=== PATIENT | female | born 1960 | race Caucasian/White ===

== ENCOUNTER → 2019-08-04 09:07 | Outpatient (BNVA) | payer BC, SELFPAY | PROVIDERS: Visit Provider Internal Medicine Cardiovascular Disease | DX: I48.91 Unspecified atrial fibrillation (principal) | CPT/HCPCS: 85610 ==

== ENCOUNTER → 2019-09-01 10:45 | Outpatient (BNVA) | payer BC, SELFPAY | PROVIDERS: Family Provider Nurse Practitioner Family; PCP Nurse Practitioner Family; Visit Provider Internal Medicine Cardiovascular Disease | DX: I48.91 Unspecified atrial fibrillation (principal) | CPT/HCPCS: 85610 ==

== ENCOUNTER → 2019-09-10 10:21 | Outpatient (BNVA) | payer BC, SELFPAY | PROVIDERS: Family Provider Nurse Practitioner Family; PCP Nurse Practitioner Family; Visit Provider Internal Medicine Cardiovascular Disease | DX: I48.91 Unspecified atrial fibrillation (principal) | CPT/HCPCS: 85610 ==

== ENCOUNTER → 2019-09-16 10:50 | Outpatient (BNVA) | payer BC, SELFPAY | PROVIDERS: Family Provider Nurse Practitioner Family; PCP Nurse Practitioner Family; Visit Provider Internal Medicine Cardiovascular Disease | DX: I48.91 Unspecified atrial fibrillation (principal); Z79.01 Long term (current) use of anticoagulants | CPT/HCPCS: 85610 ==

== ENCOUNTER → 2019-10-14 10:37 | Outpatient (BNVA) | payer BC, SELFPAY | PROVIDERS: Family Provider Nurse Practitioner Family; PCP Nurse Practitioner Family; Visit Provider Internal Medicine Cardiovascular Disease | DX: I48.91 Unspecified atrial fibrillation (principal) | CPT/HCPCS: 85610 ==

== ENCOUNTER → 2019-11-11 10:26 | Outpatient (BNVA) | payer BC, SELFPAY | PROVIDERS: Family Provider Nurse Practitioner Family; PCP Nurse Practitioner Family; Visit Provider Internal Medicine Cardiovascular Disease | DX: I48.91 Unspecified atrial fibrillation (principal) | CPT/HCPCS: 85610 ==

== ENCOUNTER → 2019-12-09 10:47 | Outpatient (BNVA) | payer BC, SELFPAY | PROVIDERS: Family Provider Nurse Practitioner Family; PCP Nurse Practitioner Family; Visit Provider Internal Medicine Cardiovascular Disease | DX: I48.91 Unspecified atrial fibrillation (principal) | CPT/HCPCS: 85610 ==

== ENCOUNTER 2020-01-19 07:01 | Outpatient (CLI) | payer BC, SELFPAY ==
[2020-01-19 07:19] VITALS: BMI 39.4
--- NOTE | 2020-01-19 07:26 | ECG_ITS ---
[facility] Test Date: 2020-01-19 Pat Name: Ivette Wheeler Department: Room: Gender: Female Office Administrator: Jana Walker : 1960 Requested By: Kash Cunningham Order Number: [id number] [place] MD: Kash Cunningham M.D. Interpretive Statements NAME OF STUDY: LEXISCAN SESTAMIBI STRESS TEST INDICATION: Chest Pain, NOTE: Please note that this is the electrocardiogram portion of the Lexiscan/Sestamibi stress test. The perfusion scan will be documented separately. DATA: Baseline heart rate was 70 beats per minute. Baseline blood pressure was 164/100 millimeters of mercury. Target heart rate was 160. Maximum heart rate achieved was 91. which was 56 % of the predicted target heart rate. Maximum blood pressure was 167/108 millimeters of mercury. The reason for ending the test was completion of the protocol. The patient did not experience any symptoms. ELECTROCARDIOGRAM: BASELINE: Sinus rhythm. Normal axis. Anteroseptal T wave inversion could be ischemia or baseline abnormality EXERCISE: After Lexiscan injection, no ST-T changes suggestive of ischemic noted. No arrhythmia noted. CONCLUSION: Please note due to baseline abnormality of the EKG specificity and sensitivity of the EKG portion of LexiScan MIBI stress test will be low 1. EKG not suggestive of ischemia 2. Lexiscan injection unremarkable. Blood pressure response hypertensive. 3. Perfusion scan will be documented separately. Electronically Signed On 01-20-2020 17:19:09 CDT by Kash Cunningham M.D. [email or web address]
--- NOTE | 2020-01-19 07:26 | NMCV_ITS ---
NM mela perf SPECT r/s* [id number] Ivette Wheeler Age: 59 Gender: F : 1960 Exam Date: 01/19/2020 08:30 Ordering Phys: Kash Cunningham MD ([email or web address]) Technologist: LUIS Mckinley Exam Location: [facility] Indications: ATHEROSCLEROTIC HEART DISEASE, SHORTNESS OF BREATH STRESS TEST Please see separate stress test report in [facility] for full findings IMAGE PROTOCOL Rest/Stress 1 Lexiscan Day Radiopharmaceutical Dose (mCi) Administration Site Administered by Rest: Tc-99m 10.8 IV LUIS Messina Sestamijoaquin Stress:Tc-99m 33.0 IV LUIS Messina Sestamibi Rest: 19-Jan-2020 60 Discovery 630 Stress: 19-Jan-2020 30 Discovery 630 0.4mg Lexiscan. Images obtained in supine and prone position. SPECT RESULTS Technical Quality: Excellent Raw Data Analysis: Normal Image Corrections: No attenuation or motion correction applied Summed Stress Score: 3 Summed Rest Score: 0 Summed Difference Score: 3 PERFUSION FINDINGS SPECT images demonstrate homogeneous tracer distribution throughout the myocardium. FUNCTIONAL RESULTS (calculated via Gated SPECT) Stress Image LV EF (%): 63 Stress EDV (mL):91 TID: 0.96 Stress ESV (mL):34 Rest Image LV EF (%): 63 FUNCTIONAL FINDINGS: There is normal left ventricular systolic function. IMPRESSIONS Myocardial perfusion imaging is normal low probability for obstructive coronary artery disease. EKG segment will be documented separately. Kash Cunningham MD (Electronically Signed) Final Date: 19 January 2020 15:46 S
[2020-01-19 09:23] VITALS: BP 145/86; PULSE 80
[2020-01-19] MEDS: regadenoson 0.4 Mg/5 ml Syringe IVP (09:23)
== END 2020-01-19 07:02 | disposition home or self-care (01) ==
LOC: CDL 07:03
PROVIDERS: Family Provider Nurse Practitioner Family; PCP Nurse Practitioner Family; Visit Provider Internal Medicine Cardiovascular Disease
DX: I25.10 Atherosclerotic heart disease of native coronary artery without angina pectoris (principal); I48.11 Longstanding persistent atrial fibrillation; R06.02 Shortness of breath; R07.9 Chest pain, unspecified
CPT/HCPCS: 78452; 93017; A9500; J2785

== ENCOUNTER → 2020-02-08 09:09 | Outpatient (BNVA) | payer BC, SELFPAY | PROVIDERS: Family Provider Nurse Practitioner Family; PCP Nurse Practitioner Family; Visit Provider Internal Medicine Cardiovascular Disease | DX: I48.11 Longstanding persistent atrial fibrillation (principal) | CPT/HCPCS: 85610 ==

== ENCOUNTER 2020-02-24 14:05 | Outpatient (CLI) | payer BC, SELFPAY ==
[2020-02-24 14:27] LABS: Basophils # 0.1 10^3/uL (0.0-0.1); Basophils % 0.7 %; Eosinophils # 0.3 10^3/uL (0.0-0.8); Eosinophils % 3.2 %; Hematocrit 49.7 % (37.0-47.0); Hemoglobin 15.5 g/dL (11.5-15.3); Lymphocytes % 32.1 %; Mean Corpuscular HGB Conc 31.2 g/dL (30.0-36.0); Mean Corpuscular Hemoglobin 27.7 pg (28.0-34.0); Mean Corpuscular Volume 88.8 fL (81-99); Mean Platelet Volume 10.4 fL (7.4-10.4); Monocytes # 0.8 10^3/uL (0.2-0.9); Monocytes % 8.1 %; Neutrophils # 5.25 10^3/uL (1.8-7.7); Neutrophils % 55.6 %; Nucleated Red Blood Cells % 0 %; Platelet Count 332 10^3/cmm (130-400); Red Cell Distribution Width 13.3 % (12.1-15.1); White Blood Count 9.5 10^3/uL (4.0-10.0)
[2020-02-24 14:53] LABS: Anion Gap 13.6 (5-19); Blood Urea Nitrogen 12 mg/dL (8-23); Carbon Dioxide 28 mmol/L (22-29); Chloride 99 mmol/L (98-107); Glomerular Filtration Rate 101.6 mL/min (90-130); Glucose 135 mg/dL (65-115); NT Pro B Type Natriuretic Pept 179 pg/mL (0-125); Osmolality Calculated 280 mOsm/kg (285-295); Potassium 4.6 mmol/L (3.5-5.1); Sodium 136 mmol/L (136-145)
[2020-02-24 15:00] LABS: INR 2.11 (0.8-1.2)
== END 2020-02-24 14:06 | disposition home or self-care (01) ==
LOC: LAB 14:08
PROVIDERS: Family Provider Nurse Practitioner Family; PCP Nurse Practitioner Family; Visit Provider Internal Medicine Cardiovascular Disease
DX: Z01.812 Encounter for preprocedural laboratory examination (principal)
CPT/HCPCS: 36415; 80048; 83880; 85025; 85610; 87635

== ENCOUNTER 2020-02-29 11:20 | Observation (INO) | payer BC, SELFPAY ==
[2020-02-28 11:52] VITALS: BMI 40.6
[2020-02-29] VITALS (41 sets, daily range): BP systolic 123–170; BP diastolic 79–116; PULSE 69–84; RESP 18–34; TEMP 36.5; O2SAT 87–95
--- NOTE | 2020-02-29 07:30 | XACV_ITS ---
Ht: 163 cm Wt: 108 kg BSA: 2.26 m2 Gender: Female : 1960 Any Known Allergies: Other Exam Priority: Routine Procedure(s): Procedure Description: Diagnostic procedure Procedure Description: PCI procedure Procedure Description: Left Heart Catheterization Procedure Description: Drug Eluting Coronary Stent Procedure Description: PTCA Procedure Description: Coronary Angiography Diagnostic Cath Status: Elective Diagnostic Findings LM: Mild 40% stenosis, TROY: 3 flow. mLAD: Severe 100% stenosis, TROY: 0 flow. pCIRC: Moderate 60% stenosis, TROY: 3 flow. Ramus: Severe 100% stenosis, TROY: 3 flow. Proximal Right Coronary Artery: Severe 85% stenosis, TROY: 3 flow. mRCA: Moderate 60% stenosis, TROY: 3 flow. Three grafts visualized. BOYD to dLAD: patent. SVG to dCIRC: 100% stenosis, TROY: 0 flow. SVG to Ramus: 100% stenosis, TROY: 0 flow. Coronary angiography shows right dominance. PCI Status: Elective PCI Indication: New Onset Angina <= 2 months Interventional Findings Proximal Right Coronary Artery: 85% stenosis treated with AB TREK 3.00X12 RX BALLOON, ROMERO Hough MATEO 4.0X12 GARDENIA, and MDT CINDY EUPHORA RX [id number] BALLOON. 0% residual stenosis, TROY: 3 flow. Conclusions There is severe coronary artery disease with five vessel disease. one graft patent, and two grafts diseased. Patient has prior CABG. Proximal Right Coronary Artery was treated with two Balloon and Drug Eluting Stent. Recommendations 1-Return to inpatient for close monitoring and routine cath care 2-Risk factor modification for secondary prevention 3-Statin and aspirin 81 mg life--long, if tolerated 4-Patient was pre-loaded with 600 mg of Plavix, continue Plavix 75mg p.o. daily for at least one year. We will assess at the end of one year again to continue if further or not 5-Continue optimal medical management 6-Follow up with Dr. Cunningham in four weeks and your primary care in 10 days . Pressures Phase:Rest AO : 105 mmHg / 74 mmHg ( 89 mmHg ) @ 5:37:00 AM 138 mmHg / 73 mmHg ( 102 mmHg ) @ 5:48:00 AM 145 mmHg / 57 mmHg ( 97 mmHg ) @ 5:48:00 AM 129 mmHg / 79 mmHg ( 102 mmHg ) @ 5:56:00 AM 55 mmHg / 36 mmHg ( 74 mmHg ) @ 6:02:00 AM 91 mmHg / 67 mmHg ( 79 mmHg ) @ 6:02:00 AM 95 mmHg / 70 mmHg ( 85 mmHg ) @ 6:08:00 AM LV : 151 mmHg / -13 mmHg / @ 5:48:00 AM 141 mmHg / -11 mmHg / @ 5:48:00 AM Valves Phase:DefaultPhase AV : 0.0 mmHg @ 11:21:18 AM AV Mean Gradient: 0.0 mmHg @ 11:21:18 AM Clinical Evaluation EBL: 5mL-10mL Procedural Details Procedure Consent Obtained. Pre-Procedure Time Out. Identified patient by full name and date of as verbalized by the patient/guarantor. Does the consent match the physician's order: Yes. Accurate & Complete Informed Consent: Yes. Inpatient/Outpatient History & Physical on Chart: Yes. If H&P is completed, is and addenduem needed: No; If yes, is the addendum complete: N/A. Visualize and Verify Site with Patient/Guarantor: N/A. Relevant Radiology Images available: N/A. Pre-op teaching completed and patient verbalized understanding. The risks, benefits, and alternatives of sedation and/or procedure were discussed by physician. The patient agrees to continue. Procedure started. [facility] Clinical Fraility Score: 3: Managing Well. Rn Mds Coordinator Indications: New Onset Angina. Chest Pain Symptom Assessment: Typical Angina Symptoms. Cardiovascular Instability: No. Correct patient, site and procedure confirmed by cath team. PERRLA. Strong, equal hand porcelain finisher bilaterally. Lungs clear x 5 lobes. IV Site on Arrival: 18 gauge in the left anticubital. IV Fluids: 0.9% NaCl at KVO. 0 mL infused prior to lab animal technician. Pre Procedural Pulses: bilateral dorsalis pedis was 1+. Pre Procedural Pulses: bilateral posterior tibial was 1+. Pre Procedural Pulses: bilateral radial was 3+. Oxygen started at 2liters/min via nasal canula. bilateral groins was prepped with chloroprep then draped in the usual sterile fashion. Baseline sample Acquired. HR: 76 BPM. Equipment: 6F - Femoral. Cardiac Cath Pack. ACPlayMotion Manifold Kit Model BT 2000. Heparinized Saline (2 units/mL), 1000 mL bag. Kit, Micropuncture. Physician notified. Physician arrived. Physician scrubbed in. Immediate Pre-Procedure Time Out. Correct Patient: Yes; Correct Procedure: Yes; Correct Site: Yes; Correct Patient Position: Yes; Correct Supplies: Yes; Dried Flammable Prep: Yes; Blood Products Available: N/A;. Lidocaine 1% infiltrated to the right groin. Arterial access obtained with micropuncture set. A 5 bahraini JL4 catheter in over wire. Multiple views taken of left coronary artery. Catheter out. A 5 bahraini JR4 catheter in over wire. Multiple views taken of right coronary artery. 2 SVGs occluded. A 5 bahraini IM catheter in over wire. BOYD to LAD visualized. A 5 bahraini Angled Pig catheter in over wire. EDP Sample taken: LV 151/-14,18; HR: 79 BPM; SpO2: 98%. Pullback taken: LV 141/-12,20; AO 138/73(102); Mean: 0mmHg, Peak to Peak: 0mmHg, SEP: 17sec/min; HR: 77 BPM; SpO2: 98%. Inventory is AB BMW Guidewire .014 300cm. 6 bahraini JR 4 guide catheter was inserted over the wire. Inventory is CRD 6FR JR 4 GUIDE 100cm. BMW guidewire was advanced through the guide catheter to lesion in the prox RCA. Inflation number : 1 A AB TREK 3.00X12 RX BALLOON was prepped and advanced across the Prox RCA , then inflated to 10 MAC for 0:20 seconds. Inflation number: 2 The AB TREK 3.00X12 RX BALLOON was reinflated across the Prox RCA, to 12 MAC for 0:13 seconds. Balloon out. Inflation Number : 3 Treasure Hough MATEO 4.0X12 GARDENIA -Lot Number# [id number] exp date 09/05/2021 was prepped and advanced across the Prox RCA. The stent was deployed at 14 MAC for 0:27 seconds. Stent balloon out over wire. Inflation number : 4 A ROMERO WHITE EUPHORA RX [id number] BALLOON was prepped and advanced across the Prox RCA , then inflated to 12 MAC for 0:19 seconds. Wire out. Guide catheter out. Physician scrubbed out. A Suture was successful obtaining hemostatsis at the Right Femoral artery insertion site. Sheath(s) sutured into position with 2-0 silk and sterile 4x4's and Op-site applied over the site. No oozing or signs and symptoms of hematoma noted. Arterial sheath flushed and connected to tranducer and pressure bag with heparinized saline. Post Procedure: Pulses reassessed and unchanged. PERRLA. Strong, equal hand porcelain finisher bilaterally. No VTE prophylaxis required. Medication's Wasted: Lidocaine 1% = 10 mL. Medication's Wasted: Heparin = 1000 units. Contrast type used: Visipaque 320 mgI/mL, 500 mL bottle. PCI Indication: CAD (without ischemic symptoms). Complications: none. Estimated blood loss: 5mL-10mL. Total IV fluids: 100 mL. Procedure completed. Patient transferred by bed to 1st floor. Vital chart was stopped. Site: Right Femoral artery Sheath Size: 6 Fr Hemostasis Method: Suture Hemostasis Success: Successful Procedure Medications Start: 10:10 AM Stop: 10:10 AM Medication: Versed Amount: 1 mg Route: I.V. Start: 10:10 AM Stop: 10:10 AM Medication: Fentanyl Amount: 50 mcg Route: I.V. Start: 10:16 AM Stop: 10:16 AM Medication: Versed Amount: 1 mg Route: I.V. Start: 10:16 AM Stop: 10:16 AM Medication: Fentanyl Amount: 50 mcg Route: I.V. Start: 10:31 AM Stop: 10:31 AM Medication: Versed Amount: 1 mg Route: I.V. Start: 10:55 AM Stop: 10:55 AM Medication: Heparin Amount: 8000 units Route: I.V. Start: 11:00 AM Stop: 11:00 AM Medication: Versed Amount: 1 mg Route: I.V. Start: 11:06 AM Stop: 11:06 AM Medication: Aggrastat 12.5 mg/250 mL Amount: 19.4 ml/hr Route: I.V. drip Start: 11:04 AM Stop: 11:04 AM Medication: Aggrastat 12.5 mg/250 mL Amount: 54 ml Route: I.V. bolus I, the attending physician, have reviewed and verified all procedure medications. Yes, all medications given per verbal order History/Risk Factors Hypertension: Yes Dyslipidemia: Yes Diabetic Therapy: Oral Peripheral Arterial Disease (PAD): No Myocardial Infarction (CO): No Obesity: Yes Renal Disease: No Tobacco Use: Never Prior Interventions PCI: No CABG: Yes Valve Surgery: No Report Signatures Finalized by:Kash Cunningham MD on 03/15/2020 11:00:18 AM
[2020-02-29] MEDS: diphenhydrAMINE 50 mg Capsule PO (08:46)
[2020-02-29 09:19] LABS: INR 0.95 (0.8-1.2)
--- NOTE | 2020-02-29 09:45 | W.PM.OPSUD ---
Surgery/Procedure H&P Update DATE OF PROCEDURE: February 29, 2020 DATE H&P PERFORMED: 01/27/20 H&P UPDATE INFORMATION: I have reviewed H&P completed within last 30 days and I have examined patient prior to procedure PREOP DIAGNOSIS: Worsening of angina, shortness of breath despite of optimization of medicine in a patient who has history of CABG 15 years ago PLANNED PROCEDURE: Operation Date: 02/29/20 08:30 Proposed Procedures p left cardiac catheterization(Left) - Kash Cunningham MD PATIENT REASSESSED PRIOR TO SEDATION, WITH NO CHANGE NOTED: Yes PHYSICAL EXAM: alert, oriented x 3, clear to auscultation bilaterally and regular rate & rhythm AIRWAY EVAL/ANESTHESIA PLAN: ASA II, Risks, benefits & alternatives of sedation and/or procedure discussed and Patient agrees to continue as planned
[2020-02-29 11:58] LABS: Glucose Point of Care 131 mg/dL (70-110)
[2020-02-29] MEDS: aspirin 81 mg EC Tablet PO (12:05)
[2020-02-29] MEDS: warfarin 3 mg Tablet 9 MG PO (13:15)
--- NOTE | 2020-02-29 13:20 | PC.NURSE ---
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 Aggrastat stopped at 1315 per orders.
--- NOTE | 2020-02-29 14:40 | PC.NURSE ---
patient resting well in bed maintaining bed rest while sheath is in, no hematoma formation or bleeding noted to sheath site awaiting PTT results to pull sheath.
[2020-02-29 14:47] LABS: Partial Thromboplastin Time 43.8 SECONDS (23.9-36.7)
--- NOTE | 2020-02-29 16:30 | PC.NURSE ---
Pulled sheath at 1530 per protocol with Di Holloway RN, patient tolerated well. V/S are all withing normal limits. Dressing in place, no signs of hematoma or bleeding.
--- NOTE | 2020-02-29 16:46 | PC.NURSE ---
Called [employer] per patients request and on facesheet to update on patients status. Appreciative of phone call.
[2020-02-29 16:56] LABS: Glucose Point of Care 128 mg/dL (70-110)
[2020-02-29] MEDS: sotalol 80 mg Tablet 120 MG PO (17:21)
[2020-02-29 20:28] LABS: Glucose Point of Care 158 mg/dL (70-110)
[2020-03-01 00:10] VITALS: BP 123/73; PULSE 67; RESP 20; TEMP 36.9; O2SAT 91
[2020-03-01 04:37] VITALS: BP 156/84; PULSE 74; RESP 20; TEMP 36.6; O2SAT 92
[2020-03-01 06:31] LABS: Glucose Point of Care 153 mg/dL (70-110)
[2020-03-01 08:00] VITALS: BP 117/73; PULSE 88; RESP 15; TEMP 37.2; O2SAT 90
[2020-03-01] MEDS: fenofibrate 145 mg Tablet PO (09:09)
[2020-03-01] MEDS: sotalol 80 mg Tablet 120 MG PO (09:09)
[2020-03-01] MEDS: doxycycline 100 mg Tablet PO (09:09)
[2020-03-01] MEDS: levothyroxine 112 mcg Tablet PO (09:09)
[2020-03-01] MEDS: aspirin 81 mg EC Tablet PO (09:09)
[2020-03-01] MEDS: clopidogrel 75 mg Tablet PO (09:49)
--- NOTE | 2020-03-01 10:44 | PC.CHAP ---
Pastoral Care Encounter/Spiritual Assessment Type of Contact [] Declined extrusion technician visit [] Patient/Family/Request visit [] Outpatient visit [] Follow-up visit [] Physician referral [] Code/Alert [x] Routine visit [] Staff referral [] Actively dying [] Patient sleeping [] Family support [] [] Out of room [] Palliative care [] [] Receiving care in room [] Pre-surgical visit [] Trauma [] Long length of stay [] ICU visit [] Other: Relational/Emotional Strength [] Patient feels connected with others/family/visitors/staff [] Distress [] Loneliness/isolation [] Abandonment Spirituality of Patient [] Person of Flaca [] Attends Church of their Flaca [] Believes in Prayer [] Reads Bible or Zoroastrian materials [] There are Spiritual issues to be addressed Atmospheric Chemist Interventions [x] Prayer [x] Active listening [x] Non-anxious presence [x] Spiritual/emotional support [] Crisis/trauma care [] Spiritual counseling [] Bereavement support [] Provided bereavement packet [] Provided Bible/devotional materials [] Provided toy/stuffed animal, coloring book to patient or family member [] Provided Communion [] Anointing/[place] [] Salvation [x] Completed spiritual assessment [] Other: Impact on Illness or Injury [] Angry [] Fearful [] Anxious [] Often cries [] Exhaustion [] Unable to work [] Unable to attend roman catholic [] Unable to walk/stand [] Unable to read [] Unable to drive [] Unable to eat/drink [] Unable to sleep [] Unable to be with family [] Patient intubated [] Other: Summary Patient feeling much better. Time spent with patient 10 min
[2020-03-01 10:48] VITALS: PULSE 82; O2SAT 92
[2020-03-01 10:53] LABS: Glucose Point of Care 131 mg/dL (70-110)
--- NOTE | 2020-03-01 10:57 | PC.NURSE ---
Discharge instructions given per the physician's instructions. Patient verbalized understanding of medication changes and post angiogram home care instructions. Patient did not have further questions. IV has been removed. Patient dressed self. No further needs identified at this time.
[2020-03-01 11:34] VITALS: BP 117/73; PULSE 82; RESP 15; TEMP 37.2; O2SAT 92
--- NOTE | 2020-03-01 20:56 | P.DS_ITS ---
Discharge Providers Date of Admission: 02/29/20 11: Date of Discharge: March 01, 2020 Attending Provider at Admission: Kash Singh MD Attending Provider at Discharge: Kash Singh MD Primary Care Provider: SAHARA ALVA Diagnoses at Discharge Discharge Diagnosis (1) ASHD (arteriosclerotic heart disease): Status: Acute (2) Atrial fibrillation: Status: Acute Qualifiers: Atrial fibrillation type: longstanding persistent Qualified Code(s): I48.11 - Longstanding persistent atrial fibrillation (3) Dyslipidemia: Status: Chronic Reason for Visit 2 Reason for Visit: left heart cath Hospital Course Discharge Summary: 60-year-old female past medical history significant for history of coronary artery bypass surgery, hypertension hyperlipidemia obesity CHF per worsening of shortness of breath chest pain despite optimization of medicine underwent left heart cath, she was noted to have mid chronic LAD occlusion along with mild to moderate circumflex lesion and left main luminal irregularity. She had dominant large size and caliber RCA with proximal tight 80% mid 40-50 and distal 60% stenosis. SVG to diagonal, SVG to circumflex was noted to be chronically occluded, BOYD to LAD was patent. Proximal RCA was fixed with drug-eluting stent postdilated with noncompliant balloon. Excellent angiographic result was achieved. Patient was observed overnight without any complication. This morning her groin looks good and she is feeling better. She is being discharged with instruction to take Plavix and warfarin for at least 6 months after that we will decide regarding dropping Plavix and continuing warfarin along with aspirin. We will see her back in the clinic in 7 days. Physical Exam Narrative: EXAM NARRATIVE: GENERAL: Patient is alert, awake and oriented x3. NECK: No jugular vein distension. HEENT: No cyanosis. No icterus. No pallor. HEART: Regular S1 and S2. No murmur, rub or gallop. LUNGS: Clear to auscultate bilaterally. ABDOMEN: Soft, nontender and nondistended. Positive bowel sounds. No guarding, rebound or tenderness. CENTRAL NERVOUS SYSTEM: Grossly nonfocal. EXTREMITIES: Lower extremities without edema bilaterally. 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 Routin e Exams 02/29/20 07:30 Taken Labs from last 24 hours 03/01/20 03/01/20 10:39 06:26 POC Glucose 131 153 Vitals: Last Vital Signs Temp 99.0 F 03/01/20 11:34 Pulse 82 03/01/20 11:34 Resp 15 03/01/20 11:34 BP 117/73 03/01/20 11:34 Pulse Ox 92 03/01/20 11:34 Discharge Plan Discharge Patient Disposition: Home Condition: Stable Prescriptions: New clopidogrel 75 mg tablet 75 mg PO DAILY Qty: 90 RF: 4 Continued sotalol 80 mg tablet 120 mg PO BID RF: 0 aspirin [Aspir-81] 81 mg tablet,delayed release (DR/EC) 81 mg PO DAILY RF: 0 fenofibrate nanocrystallized 145 mg tablet 145 mg PO DAILY RF: 0 omega-3 fatty acids [Fish Oil Concentrate] 1,000 mg capsule 2,000 mg PO DAILY RF: 0 levothyroxine 137 mcg capsule 137 mcg PO DAILY RF: 0 metformin 500 mg tablet 500 mg PO BID RF: 0 warfarin 5 mg tablet 5 mg PO DIRECTED 90 Days Qty: 90 RF: 3 warfarin 4 mg tablet 4 mg PO DAILY 90 Days Qty: 90 RF: 3 furosemide 40 mg Tablet 40 mg PO BID PRN (Reason: Edema) RF: 0 doxycycline hyclate 100 mg Tablet 100 mg PO DAILY RF: 0 potassium chloride 20 mEq Tablet Extended Release 20 meq PO DAILY PRN (Reason: Edema) RF: 0 Discharge Orders: Discharge Order (Routine); Ordered 03/01/20 Ordered By: Kash Singh Referrals: SAHARA ALVA, ONLINE EDUCATION MANAGER [Primary Care Provider] - (You have an follow-up with Sahara YOO on at 10a.m. If you have any questions or need to reschedule. Please call ) Kash Singh MD [Physician] - (You have an follow-up appointment with Dr. Singh on at 1:30p.m. If you have any questions or need to reschedule. Please call ) Mariana Marina FNP [Nurse Practitioner] - (You have an follow-up appointment with Mariana Marina on at 10:00A.M. If you have any questions or need to reschedule. Please call ) Discharge Diet: Diabetic Discharge Activity: Increase activity as tolerated Patient Instructions: Clopidogrel (By mouth), Left Heart Catheterization (DC), Coronary Angioplasty (DC), Post Angiogram Home Care Instructions Activity Restrictions/Additional Instructions: No lifting of more than gallon of milk for the next 3 days. Follow-up with Mariana Marina in 7 days. Follow-up with Dr. singh in three months Discharge Date/Time: 03/01/20 11:30 Discharge Attestations Time Spent in Discharge Care*: less than 30 min Specific Discharge Activities: Specific discharge activities: educating patient Quality Metrics Clinical Quality Measures During this hospital stay, did patient experience: None Coding Level of Care Code Established Pt Acute Radiocommunications Technician for Patg Fwd Patient Type Established History Detailed Exam Detailed Medical Decision Making Moderate Complexity Diagnoses ASHD (arteriosclerotic heart disease) I25.10 Atrial fibrillation I48.11 Atrial fibrillation type: longstanding persistent Dyslipidemia E78.5
--- NOTE | 2020-03-15 16:54 | W.PM.OPSFHP ---
Same Day Surgery H&P Indication for Procedure/HPI DATE OF PROCEDURE: February 29, 2020 CHIEF COMPLAINT/INDICATIONFOR SURGICAL PROCEDURE: Chest pain/shortness of breath PREOP DIAGNOSIS: Worsening of angina, shortness of breath despite of optimization of medicine in a patient who has history of CABG 15 years ago PLANNED PROCEDRUE: Operation Date: 02/29/20 08:30 Proposed Procedures p left cardiac catheterization(Left) - Kash Cunningham MD Medications/Allergies* Home Medications Medication Instructions Recorded Confirmed Type aspirin 81 mg tablet,delayed 81 mg PO DAILY 12/30/19 03/09/20 History release fenofibrate nanocrystallized 145 145 mg PO DAILY 12/30/19 03/09/20 History mg tablet levothyroxine 137 mcg capsule 137 mcg PO DAILY 12/30/19 03/09/20 History metformin 500 mg tablet 500 mg PO BID 12/30/19 03/09/20 History omega-3 fatty acids 1,000 mg 2,000 mg PO DAILY cap 12/30/19 03/09/20 History capsule sotalol 80 mg tablet 120 mg PO BID tab 12/30/19 03/09/20 History doxycycline hyclate 100 mg PO DAILY 02/28/20 03/09/20 History furosemide 40 mg PO BID PRN 02/28/20 03/09/20 History potassium chloride 20 meq PO DAILY PRN 02/28/20 03/09/20 History Allergies/Adverse Reactions Allergy/AdvReac Type Severity Reaction Status Date / Time atorvastatin [From Lipitor] Allergy Unknown Verified 03/09/20 10:45 lisinopril Allergy Unknown Verified 03/09/20 10:45 Pertinent History/Comorbid Conditions* Medical History (Updated 01/27/20 @ 09:33 by NAILA Cheng) ASHD (arteriosclerotic heart disease) Atrial fibrillation Dyslipidemia Hx of deep venous thrombosis Tricuspid incompetence Family History (Updated 12/30/19 @ 13:30 by Samantha Torres RN) Diabetes CAD (coronary artery disease) Hypertension Social History Smoking and tobacco status: never smoked Alcohol intake: current Alcohol intake frequency: holidays/special occasions only Pertinent Exam Findings alert, oriented x 3 and clear to auscultation bilaterally Recommendations Surgery/Procedure today Coding Level of Care Code Acute Hearing Aid Technician for Chg Hugo
== END 2020-03-01 11:30 | disposition home or self-care (01) ==
LOC: CSU 03-01 06:34
PROVIDERS: Admitting Provider Internal Medicine Cardiovascular Disease; PCP Nurse Practitioner Family; Visit Provider Internal Medicine Cardiovascular Disease
DX: I25.119 Atherosclerotic heart disease of native coronary artery with unspecified angina pectoris (principal); R06.02 Shortness of breath; I50.9 Heart failure, unspecified; E78.5 Hyperlipidemia, unspecified; E66.9 Obesity, unspecified; Z79.82 Long term (current) use of aspirin; I48.11 Longstanding persistent atrial fibrillation; Z68.41 Body mass index [BMI] 40.0-44.9, adult; Z95.1 Presence of aortocoronary bypass graft
CPT/HCPCS: 12345; 36415; 36416; 82962; 85610; 85730; 93459; 96372; C1725; C1769; C1874; C1887; C1894; C9600; G0378; J1644; J1815; J2250; J3010; J3246; Q0163; Q9967

== ENCOUNTER → 2020-03-09 10:24 | Outpatient (BNVA) | payer BC, SELFPAY | PROVIDERS: PCP Nurse Practitioner Family; Visit Provider Nurse Practitioner Family | DX: I48.11 Longstanding persistent atrial fibrillation (principal); I25.10 Atherosclerotic heart disease of native coronary artery without angina pectoris; Z79.01 Long term (current) use of anticoagulants | CPT/HCPCS: 80048; 85610 ==

== ENCOUNTER → 2020-04-11 08:33 | Outpatient (BNVA) | payer BC, SELFPAY | PROVIDERS: PCP Nurse Practitioner Family; Visit Provider Internal Medicine Cardiovascular Disease | DX: I48.11 Longstanding persistent atrial fibrillation (principal) | CPT/HCPCS: 85610 ==

== ENCOUNTER → 2020-05-09 08:41 | Outpatient (BNVA) | payer BC, SELFPAY | PROVIDERS: PCP Nurse Practitioner Family; Visit Provider Internal Medicine Cardiovascular Disease | DX: I48.11 Longstanding persistent atrial fibrillation (principal) | CPT/HCPCS: 85610 ==

== ENCOUNTER → 2020-07-06 08:40 | Outpatient (BNVA) | payer BC, SELFPAY | PROVIDERS: PCP Nurse Practitioner Family; Visit Provider Internal Medicine Cardiovascular Disease | DX: I48.11 Longstanding persistent atrial fibrillation (principal) | CPT/HCPCS: 85610 ==

== ENCOUNTER → 2020-08-03 11:50 | Outpatient (BNVA) | payer OTHER, SELFPAY | PROVIDERS: PCP Nurse Practitioner Family; Visit Provider Internal Medicine Cardiovascular Disease | DX: I48.11 Longstanding persistent atrial fibrillation (principal) | CPT/HCPCS: 85610 ==

== ENCOUNTER → 2020-09-12 08:47 | Outpatient (BNVA) | payer OTHER, SELFPAY | PROVIDERS: PCP Nurse Practitioner Family; Visit Provider Internal Medicine Cardiovascular Disease | DX: I48.11 Longstanding persistent atrial fibrillation (principal); Z79.01 Long term (current) use of anticoagulants | CPT/HCPCS: 85610 ==

== ENCOUNTER → 2020-10-11 09:11 | Outpatient (BNVA) | payer OTHER, SELFPAY | PROVIDERS: PCP Nurse Practitioner Family; Visit Provider Internal Medicine Cardiovascular Disease | DX: I48.11 Longstanding persistent atrial fibrillation (principal); Z79.01 Long term (current) use of anticoagulants | CPT/HCPCS: 85610 ==

== ENCOUNTER → 2020-11-14 08:32 | Outpatient (BNVA) | payer OTHER, SELFPAY | PROVIDERS: PCP Nurse Practitioner Family; Visit Provider Internal Medicine Cardiovascular Disease | DX: I48.11 Longstanding persistent atrial fibrillation (principal) | CPT/HCPCS: 85610 ==

== ENCOUNTER → 2020-12-12 08:42 | Outpatient (BNVA) | payer OTHER, SELFPAY | PROVIDERS: PCP Nurse Practitioner Family; Visit Provider Internal Medicine Cardiovascular Disease | DX: I48.11 Longstanding persistent atrial fibrillation (principal) | CPT/HCPCS: 85610 ==

== ENCOUNTER 2021-01-05 07:00 | Outpatient (CLI) | payer OTHER, SELFPAY ==
--- NOTE | 2021-01-05 07:42 | US_ITS ---
WS: [id number] ULTRASOUND ABDOMEN LIMITED CLINICAL INFORMATION: RUQ ABDOMINAL PAIN/ACUTE CHRONIC DIARRHEA COMPARISON: None. FINDINGS: Liver Size: Enlarged Craniocaudal length: 22.4 cm. Echogenicity: Coarse Surface nodularity: None. Mass (size and location): None. Bile ducts Intrahepatic ducts: Normal. Common bile duct diameter: 0.6 cm. Gallbladder Normal. Gallstones: None. Gallbladder sludge: None. Gallbladder wall thickening: None. Pericholecystic fluid: None. Sonographic Valdes sign: Absent. Pancreas Normal as visualized. Right kidney: Normal. Hydronephrosis: None. Size: 11.7 cm x 6.5 cm x 5.5 cm. Abdominal aorta and IVC Visualized portions are normal. Ascites: None. US/US abdomen limited [id number] IMPRESSION: 1. Hepatomegaly with diffuse fatty infiltration. 2. Normal gallbladder. 3. No hydronephrosis in right kidney.
== END 2021-01-05 07:01 | disposition home or self-care (01) ==
PROVIDERS: PCP Nurse Practitioner Family; Visit Provider Nurse Practitioner Family
DX: R10.11 Right upper quadrant pain (principal); R19.7 Diarrhea, unspecified; R16.0 Hepatomegaly, not elsewhere classified; K76.0 Fatty (change of) liver, not elsewhere classified
CPT/HCPCS: 76705

== ENCOUNTER → 2021-01-09 08:35 | Outpatient (BNVA) | payer OTHER, SELFPAY | PROVIDERS: PCP Nurse Practitioner Family; Visit Provider Internal Medicine Cardiovascular Disease | DX: I48.11 Longstanding persistent atrial fibrillation (principal) | CPT/HCPCS: 85610 ==

== ENCOUNTER 2021-01-22 10:48 | Inpatient (IN) | payer OTHER, SELFPAY ==
[2021-01-22] VITALS (14 sets, daily range): BP systolic 113–164; BP diastolic 76–131; PULSE 91–138; RESP 21–28; TEMP 36.6–36.9; O2SAT 79–94; BMI 38.0
--- NOTE | 2021-01-22 11:05 | XRR_ITS ---
PROCEDURE INFORMATION: Exam: XR Chest Exam date and time: 01/22/2021 11:05 AM Age: 60 years old Clinical indication: Prior surgery; Surgery date: 6+ months; Surgery type: Open heart; Patient HX: C/O cough for several days/ trouble breathing TECHNIQUE: Imaging protocol: XR of the chest. Views: 1 view. COMPARISON: CR Chest 2 views* [id number] 12/09/2018 10:13 AM FINDINGS: Lungs: Interstitial prominence and asymmetric airspace disease, right greater than left, consistent with bronchopneumonia in the appropriate clinical setting. Pleural spaces: Chronic blunting of the left costophrenic angle. Heart/Mediastinum: No cardiomegaly. Bones/joints: Median sternotomy. Osteopenia and degenerative change. XR/XR chest 1V portable [id number] IMPRESSION: Interstitial prominence and asymmetric airspace disease, right greater than left, consistent with bronchopneumonia in the appropriate clinical setting.
--- NOTE | 2021-01-22 11:06 | ED_ITS ---
HPI - General Adult General: Chief complaint: Shortness of Breath/Dyspnea Stated complaint: Chest Pain, Trouble Breathing Time Seen by Provider: 01/22/21 11:03 History of Present Illness: HPI narrative: This patient is a 60-year-old female who presents to the emergency department complaint of shortness of breath palpitations. Upon arrival EKG performed at the bedside showed atrial fibrillation with RVR with heart rate 140. Patient states she has not felt good for the past couple days. Patient also states she has had some hemoptysis with coughing. Patient does take Coumadin. Patient denies having any other type of Covid symptoms denies fever. Patient does have history of CHF and does take Lasix. Will do medical evaluation treat as needed Onset (ago): day(s) Associated symptoms: Reports dyspnea and palpitations; Deny chest pain, headache(s), nausea, rash or vomiting Review of Systems General: Reports: 10 or more systems reviewed and unremarkable except in HPI and below Const: Denies: fever(s), chills, body aches or fatigue Eyes: Denies: change in vision or blurry vision ENMT: Denies: throat pain, hoarseness or mouth pain Card: Reports: palpitations and irregular heart rhythm; Denies: chest pain, edema, swelling of feet/ankles or lightheadedness Resp: Reports: dyspnea; Denies: productive cough, non-productive cough, wheezing or pain on inspiration GI: Denies: abdominal pain, nausea or vomiting : Denies: flank pain, difficulty voiding, dysuria, urinary frequency, urinary urgency or urinary hesitancy Musc: Denies: neck pain, back pain, extremity pain, extremity swelling, joint pain, joint swelling, joint redness, joint warmth or limited range of motion Skin/Breast: Denies: rash, pruritus, erythema or skin tenderness Neuro: Denies: headache(s), numbness in extremities or weakness in extremities Psych: Denies: anxiety or depression PFSH ED PFSH: Medical History ASHD (arteriosclerotic heart disease) Atrial fibrillation CHF (congestive heart failure) Dyslipidemia Essential hypertension Hx of deep venous thrombosis Tricuspid incompetence Type 2 diabetes mellitus Surgical History History of coronary artery bypass graft 2004 History of coronary artery stent placement History of total vaginal hysterectomy History of tubal ligation Status post colonoscopy Family History Other CAD (coronary artery disease) Diabetes Hypertension Social History Smoking and tobacco status: never smoked Alcohol intake: current Alcohol intake frequency: holidays/special occasions only History of recent travel: No Physical Exam Const: COMMON NORMALS: no acute distress, average body habitus, patient oriented x3, no limitations, healthy appearing, alert and well nourished HENMT: COMMON NORMALS: normocephalic, atraumatic, hearing grossly normal bilaterally, external ears normal, EAC's normal, TM's normal bilaterally, Normal external nose present, Normal nasal mucous membranes and turbinates present, moist oral mucous membranes, oropharynx normal, dentition normal and gingiva normal HEAD & SCALP: normocephalic and atraumatic NOSE: Normal external nose present and Normal nasal mucous membranes and turbinates present EXTERNAL EAR: Yes external ears normal EXTERNAL AUDITORY CANAL: EAC's normal TYMPANIC MEMBRANE: TM's normal bilaterally Neck/C-Spine: COMMON NORMALS: full ROM, no lymphadenopathy, supple, no meningeal signs, no JVD, Thyroid normal and No carotid bruits THYROID: Thyroid normal Chest: COMMONS NORMALS: normal inspection of the chest, normal palpation of entire chest wall, normal inspection of the breasts and normal palpation of the breasts Breast/axilla inspection: Yes normal inspection of the breasts BREAST/AXILLA PALPATION: Yes normal palpation of the breasts Resp: COMMON NORMALS: normal respiratory effort, No retractions, No use of accessory muscles, clear to auscultation bilaterally and percussion normal AUSCULTATION: clear to auscultation bilaterally PERCUSSION: percussion normal Cardio: COMMON NORMALS: no JVD, regular rate, regular rhythm, S1 normal heart sound present, S2 normal heart sound present, No gallops present (Cardio), No cl icks present (Cardio), No murmurs present (Cardio), No rub (Cardio) and Peripheral pulses 2+ throughout RATE: regular rate RHYTHM: regular rhythm HEART SOUNDS: S1 normal heart sound present and S2 normal heart sound present PERIPHERAL PULSES: Peripheral pulses 2+ throughout GI: COMMON NORMALS: Normal to inspection, nondistended, normoactive bowel sounds present, Soft to palpation, non-tender, No hepatosplenomegaly present, no masses and no bruits PALPATION: Yes Soft to palpation and Yes No hepatosplenomegaly present Back/Pelvis: COMMON NORMALS: thoracic and lumbar spine normal to inspection, no thoracic nor lumbar tenderness, thoraco-lumbar ROM normal and straight leg raise negative bilaterally Extremity: COMMON NORMALS: normal to inspection, full ROM, capillary refill normal, no joint enlargement, no clubbing, cyanosis or edema, no calf tenderness and no pedal edema Neuro: COMMON NORMALS: patient oriented x3 SENSORIUM/ORIENTATION: Yes alert MENINGEAL SIGNS: Yes no meningeal signs Course Reevaluation(s): Reevaluation #1: Patient's heart rate is around 120 patient is on a Cardizem drip. Pulse ox is 95% on 4 L by nasal cannula. Patient is Covid positive. Patient be admitted to the hospital for further evaluation with A. fib RVR. And positive coronavirus. We will continue to monitor patient. Patient states initially Time: 12:26 Consultations: Consultation #1: I did discuss at length with hospitalist Dr. Garcia. He has agreed with the patient for admission. He will see patient write additional orders Time: 13:53 Vital Signs: Vital signs: Vital Signs Temperature 98.4 F 01/22/21 11:04 Pulse Rate 138 H 01/22/21 11:04 Respiratory Rate 24 H 01/22/21 11:04 Blood Pressure 164/131 01/22/21 11:04 Pulse Oximetry 79 L 01/22/21 11:04 MDM - General Adult MDM Narrative: Medical decision making narrative: This patient is a 60-year-old female who presents to the emergency department complaint of shortness of breath palpitations. Upon arrival EKG performed at the bedside showed atrial fibrillation with RVR with heart rate 140. Patient states she has not felt good for the past couple days. Patient also states she has had some hemoptysis with coughing. Patient does take Coumadin. Patient denies having any other type of Covid symptoms denies fever. Patient does have history of CHF and does take Lasix. Lab Data: Labs: Lab Results 01/22/21 01/22/21 01/22/21 Range/Units 11:20 11:20 11:20 WBC 5.1 (4.0-10.0) 10^3/ uL RBC 5.15 (4.1-5.3) 10^6/u L Hgb 14.4 (11.5-15.3) g/dL Hct 46.2 (37.0-47.0) % MCV 89.7 (81-99) fL MCH 28.0 (28.0-34.0) pg MCHC 31.2 (30.0-36.0) g/dL RDW 14.0 (12.1-15.1) % Plt Count 202 (130-400) 10^3/c mm MPV 10.4 (7.4-10.4) fL Neut % (Auto) 66.0 % Lymph % (Auto) 22.5 % [place] % (Auto) 10.5 % Eos % (Auto) 0.2 % Baso % (Auto) 0.4 % Neut # (Auto) 3.34 (1.8-7.7) 10^3/u L Lymph # (Auto) 1.1 (0.8-4.8) 10^3/u L [place] # (Auto) 0.5 (0.2-0.9) 10^3/u L Eos # (Auto) 0.0 (0.0-0.8) 10^3/u L Baso # (Auto) 0.0 (0.0-0.1) 10^3/u L Nucleated RBC % (a uto) 0 % Nucleated RBCs # 0.0 /100WBC PT (12.1-14.9) SECO NDS INR (0.8-1.2) APTT (23.9-36.7) SECO NDS Sodium Cancelled Potassium Cancelled Chloride Cancelled Carbon Dioxide Cancelled Anion Gap Cancelled BUN Cancelled Creatinine Cancelled GFR Calculation Cancelled Glucose Cancelled Calculated Osmolal ity Cancelled Calcium Cancelled Total Bilirubin Cancelled AST Cancelled ALT Cancelled Alkaline Phosphata se Cancelled Troponin T Baselin e Cancelled NT-Pro-B Natriuret Pep Cancelled Total Protein Cancelled Albumin Cancelled Globulin Cancelled Urine Color (Yellow) Urine Appearance (CLEAR) Urine pH (5-7) Ur Specific Gravit y (1.005-1.030) Urine Protein (Negative) Urine Glucose (UA) (Normal) Urine Ketones (Negative) Urine Blood (Negative) Urine Nitrate (Negative) Urine Bilirubin (Negative) Urine Urobilinogen (Negative) mg/dL Ur Leukocyte Kaylee ase (Negative) Urine RBC (0-2) /hpf Urine WBC (0-5) /hpf Ur Squamous Epith Cells (0-5) /hpf Amorphous Sediment Urine Bacteria (NONE) /hpf Hyaline Casts /lpf Urine Mucus /hpf SARS-CoV-2 Ag (Rap id) (Negative) 01/22/21 01/22/21 01/22/21 Range/Units 11:38 11:38 11:38 WBC (4.0-10.0) 10^3/ uL RBC (4.1-5.3) 10^6/u L Hgb (11.5-15.3) g/dL Hct (37.0-47.0) % MCV (81-99) fL MCH (28.0-34.0) pg MCHC (30.0-36.0) g/dL RDW (12.1-15.1) % Plt Count (130-400) 10^3/c mm MPV (7.4-10.4) fL Neut % (Auto) % Lymph % (Auto) % [place] % (Auto) % Eos % (Auto) % Baso % (Auto) % Neut # (Auto) (1.8-7.7) 10^3/u L Lymph # (Auto) (0.8-4.8) 10^3/u L [place] # (Auto) (0.2-0.9) 10^3/u L Eos # (Auto) (0.0-0.8) 10^3/u L Baso # (Auto) (0.0-0.1) 10^3/u L Nucleated RBC % (a uto) % Nucleated RBCs # /100WBC PT 38.70 H (12.1-14.9) SECO NDS INR 3.89 H (0.8-1.2) APTT 101.4 H (23.9-36.7) SECO NDS Sodium 138 Potassium 4.3 Chloride 99 Carbon Dioxide 24 Anion Gap 19.3 H BUN 8 Creatinine 0.5 GFR Calculation 125.4 Glucose 114 Calculated Osmolal ity 285 Calcium 8.4 L Total Bilirubin 0.4 AST 72 H ALT 62 H Alkaline Phosphata se 76 Troponin T Baselin e 14 H NT-Pro-B Natriuret Pep 1172 H Total Protein 7.0 Albumin 3.4 L Globulin 3.6 Urine Color (Yellow) Urine Appearance (CLEAR) Urine pH (5-7) Ur Specific Gravit y (1.005-1.030) Urine Protein (Negative) Urine Glucose (UA) (Normal) Urine Ketones (Negative) Urine Blood (Negative) Urine Nitrate (Negative) Urine Bilirubin (Negative) Urine Urobilinogen (Negative) mg/dL Ur Leukocyte Kaylee ase (Negative) Urine RBC (0-2) /hpf Urine WBC (0-5) /hpf Ur Squamous Epith Cells (0-5) /hpf Amorphous Sediment Urine Bacteria (NONE) /hpf Hyaline Casts /lpf Urine Mucus /hpf SARS-CoV-2 Ag (Rap id) (Negative) 01/22/21 01/22/21 Range/Units 11:40 13:11 WBC (4.0-10.0) 10^3/ uL RBC (4.1-5.3) 10^6/u L Hgb (11.5-15.3) g/dL Hct (37.0-47.0) % MCV (81-99) fL MCH (28.0-34.0) pg MCHC (30.0-36.0) g/dL RDW (12.1-15.1) % Plt Count (130-400) 10^3/c mm MPV (7.4-10.4) fL Neut % (Auto) % Lymph % (Auto) % [place] % (Auto) % Eos % (Auto) % Baso % (Auto) % Neut # (Auto) (1.8-7.7) 10^3/u L Lymph # (Auto) (0.8-4.8) 10^3/u L [place] # (Auto) (0.2-0.9) 10^3/u L Eos # (Auto) (0.0-0.8) 10^3/u L Baso # (Auto) (0.0-0.1) 10^3/u L Nucleated RBC % (a uto) % Nucleated RBCs # /100WBC PT (12.1-14.9) SECO NDS INR (0.8-1.2) APTT (23.9-36.7) SECO NDS Sodium Potassium Chloride Carbon Dioxide Anion Gap BUN Creatinine GFR Calculation Glucose Calculated Osmolal ity Calcium Total Bilirubin AST ALT Alkaline Phosphata se Troponin T Baselin e NT-Pro-B Natriuret Pep Total Protein Albumin Globulin Urine Color Yellow (Yellow) Urine Appearance Hazy A (CLEAR) Urine pH 5 (5-7) Ur Specific Gravit y 1.025 (1.005-1.030) Urine Protein 2+ H (Negative) Urine Glucose (UA) Norm (Normal) Urine Ketones 2+ H (Negative) Urine Blood Neg (Negative) Urine Nitrate Negative (Negative) Urine Bilirubin 1+ H (Negative) Urine Urobilinogen 1 H (Negative) mg/dL Ur Leukocyte Kaylee ase Negative (Negative) Urine RBC 0-4 H (0-2) /hpf Urine WBC 0-4 H (0-5) /hpf Ur Squamous Epith Cells 5-10 H (0-5) /hpf Amorphous Sediment Not Reportable Urine Bacteria Trace (NONE) /hpf Hyaline Casts Rare /lpf Urine Mucus 1+ /hpf SARS-CoV-2 Ag (Rap id) Positive H (Negative) Imaging Data^: CXR: Attestation: I personally reviewed and interpreted this imaging study as follows: Radiologist's impression: IMPRESSION: Interstitial prominence and asymmetric airspace disease, right greater than left, consistent with bronchopneumonia in the appropriate clinical setting. EKG Data^: EKG 1: EKG interpretation date: 01/22/21 EKG interpretation time: 10:59 Prior EKG tracings: not available for review Ischemic changes: non-specific ST-T wave changes Interpretation: Atrial fibrillation with RVR heart rate 138 Computer generated interpretation: Chest X-Ray 01/22/21 11:05 IMPRESSION: Interstitial prominence and asymmetric airspace disease, right greater than left, consistent with bronchopneumonia in the appropriate clinical setting. EKG 2: Attestation: I personally reviewed and interpreted this EKG as follows: EKG interpretation date: 01/22/21 EKG interpretation time: 12:48 Prior EKG tracings: available for review Computer generated interpretation: Chest X-Ray 01/22/21 11:05 IMPRESSION: Interstitial prominence and asymmetric airspace disease, right greater than left, consistent with bronchopneumonia in the appropriate clinical setting. Atrial fibrillation with RVR heart rate 129 Discharge Plan Discharge Patient Disposition: Admitted As Inpatient Clinical Impression: Atrial fibrillation with RVR, COVID-19, CHF (congestive heart failure), Chronic anticoagulation Condition: Stable Prescriptions: No Action fenofibrate nanocrystallized 145 mg tablet 145 mg PO QAM RF: 0 omega-3 fatty acids [Fish Oil Concentrate] 1,000 mg capsule 1,000 mg PO BID RF: 0 sotalol 120 mg tablet 120 mg PO BID Qty: 180 RF: 3 doxycycline hyclate 100 mg Tablet 100 mg PO QAM RF: 0 Euthyrox 150 mcg tablet 150 mcg PO QAM RF: 0 metformin 750 mg tablet extended release 24 hr 750 mg PO BID RF: 0 potassium chloride 10 mEq tablet extended release 10 meq PO QAM RF: 0 clopidogrel 75 mg tablet 75 mg PO QAM RF: 0 warfarin 4 mg tablet 4 mg PO BEDTIME RF: 0 warfarin 5 mg tablet 5 mg PO BEDTIME RF: 0 furosemide 20 mg tablet 20 mg PO QAM RF: 0 clobetasol 0.05 % ointment 1 applic TOPICAL BID PRN (Reason: unknown) RF: 0 Referrals: Yulia Hunter, ELECTRICAL AND INSTRUMENT ENGINEER [Primary Care Provider] - Coding Level of Care Code ED Avionics Safety Inspector for Chg Fwd Exam Comprehensive
[2021-01-22 11:33] LABS: Basophils % 0.4 %; Eosinophils % 0.2 %; Hematocrit 46.2 % (37.0-47.0); Hemoglobin 14.4 g/dL (11.5-15.3); Lymphocytes # 1.1 10^3/uL (0.8-4.8); Lymphocytes % 22.5 %; Mean Corpuscular HGB Conc 31.2 g/dL (30.0-36.0); Mean Corpuscular Volume 89.7 fL (81-99); Mean Platelet Volume 10.4 fL (7.4-10.4); Monocytes # 0.5 10^3/uL (0.2-0.9); Monocytes % 10.5 %; Neutrophils # 3.34 10^3/uL (1.8-7.7); Nucleated Red Blood Cells % 0 %; Platelet Count 202 10^3/cmm (130-400); Red Blood Count 5.15 10^6/uL (4.1-5.3); White Blood Count 5.1 10^3/uL (4.0-10.0)
[2021-01-22 12:04] LABS: INR 3.89 (0.8-1.2)
[2021-01-22 12:10] LABS: Troponin(5th) Baseline 14 ng/L (0-10)
[2021-01-22 12:13] LABS: Partial Thromboplastin Time 101.4 SECONDS (23.9-36.7)
[2021-01-22 12:19] LABS: SARS Covid-2 Antigen Positive (Negative)
[2021-01-22 12:48] LABS: Alanine Aminotransferase 62 U/L (0-33); Albumin Level 3.4 g/dL (3.5-5.2); Alkaline Phosphatase 76 IU/L (35-105); Anion Gap 19.3 (5-19); Aspartate Amino Transferase 72 U/L (0-32); Blood Urea Nitrogen 8 mg/dL (8-23); Calcium 8.4 mg/dL (8.5-10.5); Carbon Dioxide 24 mmol/L (22-29); Chloride 99 mmol/L (98-107); Globulin 3.6 g/dL (1.3-4.6); Glomerular Filtration Rate 125.4 mL/min (90-130); Glucose 114 mg/dL (65-115); NT Pro B Type Natriuretic Pept 1172 pg/mL (0-125); Osmolality Calculated 285 mOsm/kg (285-295); Potassium 4.3 mmol/L (3.5-5.1); Sodium 138 mmol/L (136-145); Total Bilirubin 0.4 mg/dL (0.15-1.2)
--- NOTE | 2021-01-22 13:06 | ECG_ITS ---
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1960 Requested By: Presley Shook Order Number: [id number] Reading MD: AGNES SARABIA Measurements Intervals [place] Rate: 129 P: UT: QRS: 18 QRSD: 87 T: -15 QT: 326 QTc: 478 Interpretive Statements ATRIAL FIBRILLATION WITH RAPID VENTRICULAR RESPONSE NONSPECIFIC ST & T-WAVE ABNORMALITY ABNORMAL RHYTHM ECG WARNING: DATA QUALITY MAY AFFECT INTERPRETATION Compared to ECG 02/01/2017 12:02:00 Sinus rhythm no longer present T-wave abnormality still present Electronically Signed On 01-22-2021 18:52:23 CDT by AGNES SARABIA [id number]
[2021-01-22] MEDS: dexamethasone 10 mg/mL INJ IVP (13:17)
[2021-01-22] MEDS: azithromycin 500 MG in sodium chloride 0.9% 250 ML 250 MG IV (13:33)
[2021-01-22 13:34] LABS: Protein Urine 2+ (Negative); Specific Gravity, Urine 1.025 (1.005-1.030); Urine Appearance Hazy (CLEAR); Urine Color Yellow (Yellow); pH Urine 5 (5-7)
[2021-01-22 13:35] LABS: Add Urine Microscopic? YES; Bilirubin Urine 1+ (Negative); Blood Urine Neg (Negative); Glucose Urine UA Norm (Normal); Ketones Urine 2+ (Negative); Leukocyte Esterase Urine Negative (Negative); Nitrate Urine Negative (Negative); Urobilinogen Urine 1 mg/dL (Negative)
[2021-01-22 13:39] LABS: Bacteria Urine TRACE /hpf; RBC Urine 0-4 /hpf (0-2); WBC Urine 0-4 /hpf (0-5)
[2021-01-22 13:40] LABS: Add Urine Culture? No; Hyaline Casts Urine RARE /lpf; Mucus Urine 1+ /hpf
[2021-01-22 14:15] LABS: Troponin 5 2HR 16.17 ng/L (0-10); Troponin 5 2HR Delta 2.17 ABS# (0-10)
--- NOTE | 2021-01-22 14:44 | CTR_ITS ---
PROCEDURE INFORMATION: Exam: CTA Chest With Contrast Exam date and time: 01/22/2021 2:44 PM Age: 60 years old Clinical indication: Cough and shortness of breath; Prior surgery; Surgery type: Cabg; Additional info: Donnell, hemoptysis TECHNIQUE: Imaging protocol: Computed tomographic angiography of the chest with contrast. 3D rendering (Not supervised by radiologist): MIP and/or 3D reconstructed images were created by the technologist. Total images: 879 Radiation optimization: All CT scans at this facility use at least one of these dose optimization techniques: automated exposure control; mA and/or kV adjustment per patient size (includes targeted exams where dose is matched to clinical indication); or iterative reconstruction. Contrast material: OMNI 350; Contrast volume: 61 ml; Contrast route: INTRAVENOUS (IV); COMPARISON: CR (CHEST, ) 01/22/2021 11:43 AM RADIATION DOSE METRICS: Total DLP (mGy-cm): 554.66 FINDINGS: Pulmonary arteries: No visible evidence of pulmonary embolism/pulmonary arterial thrombus. Aorta: The thoracic aorta is nonaneurysmal. No visible intimal flap or dissection. Mild arteriosclerosis. Lungs: Bilateral patches of predominantly peripheral ground-glass interstitial lung disease and early consolidated subsegmental alveolar airspace disease of suspected active pneumonitis/pneumonia. In today's current environment consideration might be given to Covid-19 pneumonitis. Pleural spaces: No pneumothorax. No pleural effusion. Heart: Cardiac size upper limits of normal. No visible pericardial effusion. Coronary artery disease. Status post sternotomy chest and CABG. Lymph nodes: Marginally prominent mediastinal and hilar lymph nodes believed reactive in nature. Liver: Advanced diffuse fatty infiltration of the liver with hepatomegaly. Bones/joints: No visible active or acute osseous pathology. Soft tissues: Unremarkable. Other findings: Obesity. Motion artifact. CT/CT angio chest PE protcl [id number] IMPRESSION: 1. No visible evidence of pulmonary embolism/pulmonary arterial thrombus. 2. Bilateral patches of predominantly peripheral ground-glass interstitial lung disease and early consolidated subsegmental alveolar airspace disease of suspected active pneumonitis/pneumonia. In today's current environment consideration might be given to Covid-19 pneumonitis. 3. Marginally prominent mediastinal hilar lymph nodes believed most likely reactive in nature. Radiation Dose CTDIVOL = (mGy): DLP = 554.66 (mGy-cm)
--- NOTE | 2021-01-22 14:45 | P.HP_ITS ---
Providers/Chief Complaint Admitting Physician: Hosea Garcia MD Primary Care Provider: Yulia Hunter Chief Complaint: Chest Pain, Trouble Breathing History of Present Illness Ivette Wheeler is a 60 year old female with a past medical history of diastolic CHF, atrial fibrillation on Coumadin, hypertension, CABG x3, CAD status post stenting x1 on Plavix, year ago, [id number] type 2 diabetes mellitus, history of DVT, who presents to [facility] due to cough, chest pain, shortness of breath, hemoptysis, fatigue, malaise. Patient tells me that she saha s been having productive, shortness of breath with exertion for the last few days, she also had hemoptysis, she is also developed worsening swelling of her legs, this morning she started follow-up increased shortness of breath, palpitations, chest pain so she decided to come to emergency room. No known Covid exposure, she has not received the Covid vaccine as of yet. Does take Lasix 20 mg daily. Denies any calf pain or calf swelling. She does report loss of taste, loss of smell, does have a rash on her bilateral lower extremities Review of Systems Const: Reports: fatigue and malaise; Denies: fever(s) or chills Eyes: Denies: change in vision or blurry vision ENMT: Reports: nasal congestion Card: Reports: chest pain, palpitations, edema and swelling of feet/ankles Resp: Reports: dyspnea and non-productive cough; Denies: productive cough or wheezing GI: Denies: abdominal pain, nausea, vomiting, hematemesis, diarrhea, constipation, hematochezia or melena : Denies: flank pain, dysuria or urinary frequency Musc: Denies: neck pain or back pain Skin/Breast: Reports: rash Neuro: Denies: headache(s), dizziness or vertigo Endo: Denies: polyuria or polydipsia Medications/Allergies Home Medications Medication Instructions Recorded Confirmed Last Taken Type fenofibrate nanocrystallized 145 145 mg PO QAM 12/30/19 01/22/21 01/22/21 06:00 History mg tablet doxycycline hyclate 100 mg PO QAM 02/28/20 01/22/21 01/22/21 06:00 History sotalol 120 mg tablet 120 mg PO BID #180 tab 11/14/20 01/22/21 01/22/21 06:00 Rx omega-3 fatty acids 1,000 mg 1,000 mg PO BID cap 01/12/21 01/22/21 01/22/21 06:00 History capsule clobetasol 1 applic TOPICAL BID PRN 01/22/21 01/22/21 Unknown History clopidogrel 75 mg PO QAM 01/22/21 01/22/21 01/22/21 06:00 History furosemide 20 mg PO QAM 01/22/21 01/22/21 01/21/21 History levothyroxine [Euthyrox] 150 mcg PO QAM 01/22/21 01/22/21 01/22/21 06:00 History metformin 750 mg PO BID 01/22/21 01/22/21 01/22/21 06:00 History potassium chloride 10 meq PO QAM 01/22/21 01/22/21 01/21/21 History warfarin 4 mg PO BEDTIME 01/22/21 01/22/21 01/21/21 History warfarin 5 mg PO BEDTIME 01/22/21 01/22/21 01/21/21 History Allergies Allergy/AdvReac Type Severity Reaction Status Date / Time atorvastatin [From Lipitor] Allergy Unknown Verified 01/22/21 13:42 lisinopril Allergy Unknown Verified 01/22/21 13:42 PFSH Acute PFSH: Medical History ASHD (arteriosclerotic heart disease) Atrial fibrillation CHF (congestive heart failure) Dyslipidemia Essential hypertension Hx of deep venous thrombosis Tricuspid incompetence Type 2 diabetes mellitus Surgical History History of coronary artery bypass graft 2004 History of coronary artery stent placement History of total vaginal hysterectomy History of tubal ligation Status post colonoscopy Family History Other CAD (coronary artery disease) Diabetes Hypertension Social History Smoking and tobacco status: never smoked Alcohol intake: current Alcohol intake frequency: holidays/special occasions only History of recent travel: No Vitals/I&O/Wt Last Vital Signs Temp 98.4 F 01/22/21 11:04 Pulse 121 H 01/22/21 13:57 Resp 21 H 01/22/21 13:57 BP 113/91 01/22/21 13:57 Pulse Ox 93 01/22/21 13:57 Weight last 48 hrs Weight 100.698 kg Physical Exam Const: COMMON NORMALS: no acute distress and patient oriented x3 HENMT: COMMON NORMALS: normocephalic HEAD & SCALP: normocephalic Eye: COMMON NORMALS: Equal, round and reactive pupils present and EOMs intact bilaterally GENERAL EYE: appearance normal, both eyes and all related structures PUPIL: Yes Equal, round and reactive pupils present Neck/C-Spine: COMMON NORMALS: full ROM and no lymphadenopathy THYROID: Thyroid normal Lymph: LYMPHATIC: no lymphadenopathy noted Resp: COMMON NORMALS: normal respiratory effort, No retractions, No use of accessory muscles and clear to auscultation bilaterally AUSCULTATION: crackles Cardio: COMMON NORMALS: regular rate, regular rhythm, S1 normal heart sound p resent, S2 normal heart sound present, No gallops present (Cardio), No clicks present (Cardio) and No murmurs present (Cardio) RATE: regular rate RHYTHM: regular rhythm HEART SOUNDS: S1 normal heart sound present and S2 normal heart sound present GI: COMMON NORMALS: Normal to inspection, nondistended, normoactive bowel sounds present, Soft to palpation, non-tender and No hepatosplenomegaly present PALPATION: Yes Soft to palpation and Yes No hepatosplenomegaly present Extremity: COMMON NORMALS: normal to inspection NARRATIVE EXTREMITY EXAM: 1+ pitting edema bilaterally, OTHER: Bilateral lower extremity, shins, macular, pinpoint, pruritic, nonblanching rash Neuro: COMMON NORMALS: patient oriented x3, CN's II-XII intact bilaterally, moves all extremities and no focal motor deficits Psych: COMMON NORMALS: mental status grossly normal, Normal thought process present and cooperative THOUGHT PROCESS: Normal thought process present Data : 01/22/21 11:20 01/22/21 11:38 Micro: Microbiology 01/22/21 13:50 Blood Culture - Preliminary Blood SPECIMEN COLLECTED 01/22/21 13:45 Blood Culture - Preliminary Blood SPECIMEN COLLECTED A&P Assessment and plan (1) Atrial fibrillation with RVR: Multifactorial from A. fib with RVR, diastolic CHF, pulmonary edema, COVID-19, possible atypical pneumonia Plan: -Admit to CSU -COVID-19 precautions, Covid PCR sent out -Decadron 6 mg IV push daily -Remdesivir -Rocephin azithromycin for possible atypical pneumonia -For A. fib with RVR, currently on Cardizem drip, wean as tolerated continue sot alol -Bumex 1 mg every 24 hours, monitor creatinine, monitor potassium, fluid restrictions 1500 cc -Albuterol, Advair -Respiratory therapy -Incentive spirometer, flutter valve -Vitamin C, zinc, vitamin D -Low-dose sliding scale, A1c -INR 3.89, on Coumadin, continue to hold, recheck INR tomorrow -Follow blood cultures, sputum cultures, urine bacterial antigens - full code, patient tells me that she does not want to be left on ventilator for a prolonged period of time, if there is is no hope for coming off the ventilator she wanted to be stopped -DVT prophylaxis, Coumadin, INR 3.8, continue to hold Coumadin for now Status: Acute (2) COVID-19: Status: Acute (3) Chronic anticoagulation: Status: Acute (4) Essential hypertension: Status: Acute (5) Dyslipidemia: Status: Chronic (6) ASHD (arteriosclerotic heart disease): Status: Acute (7) Acute respiratory failure with hypoxia: Status: Acute Attestations Medical Necessity Statement*: Patient requires hospitalization, inpatient, greater than 2 midnights COVID-19, A. fib, diastolic CHF Coding Level of Care Code Acute Service Desk Team Lead for [facility] Fwd Diagnoses Atrial fibrillation with RVR I48.91 COVID-19 U07.1 Chronic anticoagulation Z79.01 Essential hypertension I10 Dyslipidemia E78.5 ASHD (arteriosclerotic heart disease) I25.10 Acute respiratory failure with hypoxia J96.01
[2021-01-22 15:34] LABS: Procalcitonin 0.12 ng/mL (0-0.5)
[2021-01-22] MEDS: remdesivir 200 MG in sodium chloride 0.9% (100 ml) 100 ML 100 MG IV (15:39)
[2021-01-22] MEDS: iohexol 350 mg/mL 100 mL Btl IV (16:16)
--- NOTE | 2021-01-22 16:30 | PC.NURSE ---
From ER pt arrived via stretcher. Pt has oxymask on at 4 L/min from ER. SpO2 is 90%. Pt denies any pain at this time. Noticed strong dry cough. Pt has afib w/rvr in 120s-130s. Cardizem drip running at 9 mcg/min, titrated cardizem drip to 10 mcg/min. vs stable. patent 2 IVs. call light provided to pt.
--- NOTE | 2021-01-22 17:00 | PC.NURSE ---
cardizem drip titrated to 15 mcg/min It will not let me titrate in the e-mar.
[2021-01-22] MEDS: cefTRIAXone 1,000 MG in sodium chloride 0.9% (plus) 50 ML 100 MG IV (17:06)
[2021-01-22] MEDS: ascorbic acid 500 mg Tablet PO (17:06)
[2021-01-22] MEDS: bumetanide 0.25 mg/mL SDV 4 mL 1 MG IV (17:06)
[2021-01-22] MEDS: sotalol 80 mg Tablet 120 MG PO (17:06)
--- NOTE | 2021-01-22 17:06 | ECG_ITS ---
[facility] Test Date: 2021-01-22 Pat Name: Ivette Wheeler Department: Room: 104 Gender: Female Professor Of Religion: : 1960 Requested By: Presley Shook Order Number: [id number] Reading MD: AGNES SARABIA Measurements Intervals [place] Rate: 115 P: [place]: QRS: 4 QRSD: 86 T: 0 QT: 176 QTc: 244 Interpretive Statements ATRIAL FIBRILLATION WITH RAPID VENTRICULAR RESPONSE NONSPECIFIC ST & T-WAVE ABNORMALITY ABNORMAL RHYTHM ECG WARNING: DATA QUALITY MAY AFFECT INTERPRETATION Compared to ECG 01/22/2021 12:48:31 No significant changes Electronically Signed On 01-22-2021 18:51:13 CDT by AGNES SARABIA [id number]
[2021-01-22] MEDS: famotidine 20 mg Tablet PO (17:07)
[2021-01-22 17:39] LABS: Glucose Point of Care 124 mg/dL (70-110)
--- NOTE | 2021-01-22 18:00 | PC.NURSE ---
cardizem drip titrated to 10 mcg/min
[2021-01-22 18:31] LABS: Troponin 5 6HR 15.43 ng/L (0-10); Troponin 5 6HR Delta 1.43 ng/L (0-12)
[2021-01-22 20:16] LABS: Glucose Point of Care 213 mg/dL (70-110)
[2021-01-23] VITALS (13 sets, daily range): BP systolic 101–152; BP diastolic 67–100; PULSE 68–110; RESP 18–27; TEMP 36.3–37.1; O2SAT 90–97
[2021-01-23 04:14] LABS: Estmated Average Glucose 143; Hemoglobin A1C 6.6 % (4.0-6.0)
[2021-01-23 04:27] LABS: Thyroid Stimulating Hormone 0.55 uIU/mL (0.27-4.20)
[2021-01-23 04:48] LABS: Chol HDL Ratio 4.25 mg/dL (0.0-4.40); Cholesterol 85 mg/dL (0-200); HDL Cholesterol 20 mg/dL (60-100); LDL Cholesterol Calculated 46 mg/dL (50-129); Triglycerides 97 mg/dL (0-150)
[2021-01-23] MEDS: fenofibrate 145 mg Tablet PO (05:57)
[2021-01-23] MEDS: clopidogrel 75 mg Tablet PO (05:57)
[2021-01-23] MEDS: levothyroxine 150 mcg Tablet PO (05:57)
[2021-01-23 06:55] LABS: Glucose Point of Care 120 mg/dL (70-110)
[2021-01-23] MEDS: famotidine 20 mg Tablet PO ×2 (08:42→17:42)
[2021-01-23] MEDS: sotalol 80 mg Tablet 120 MG PO ×2 (08:42→17:41)
[2021-01-23] MEDS: ascorbic acid 500 mg Tablet PO ×2 (08:42→17:41)
[2021-01-23] MEDS: cholecalciferol (vitamin D3) 1,000 unit Tablet 1000 UNIT PO (08:42)
[2021-01-23] MEDS: dexamethasone 4 mg/mL INJ 6 MG IVP (08:42)
[2021-01-23] MEDS: zinc gluconate 50 mg Tablet PO (08:42)
--- NOTE | 2021-01-23 09:34 | PC.CHAP ---
Pastoral Care Encounter/Spiritual Assessment Type of Contact [] Declined dean of education visit [] Patient/Family/Request visit [] Outpatient visit [] Follow-up visit [] Physician referral [] Code/Alert [x] Routine visit [] Staff referral [] Actively dying [] Patient sleeping [] Family support [] [] Out of room [] Palliative care [] [x] Receiving care in room [] Pre-surgical visit [] Trauma [] Long length of stay [] ICU visit [x] Other: isolation Relational/Emotional Strength [] Patient feels connected with others/family/visitors/staff [] Distress [] Loneliness/isolation [] Abandonment Spirituality of Patient [] Person of Flaca [] Attends Protestant of their Flaca [] Believes in Prayer [] Reads Bible or Judaism materials [] There are Spiritual issues to be addressed Horse Show Judge Interventions [x] Prayer [] Active listening [] Non-anxious presence [] Spiritual/emotional support [] Crisis/trauma care [] Spiritual counseling [] Bereavement support [] Provided bereavement packet [] Provided Bible/devotional materials [] Provided toy/stuffed animal, coloring book to patient or family member [] Provided Communion [] Anointing/Bryan [] Salvation [x] Completed spiritual assessment [] Other: Impact on Illness or Injury [] Angry [] Fearful [] Anxious [] Often cries [] Exhaustion [] Unable to work [] Unable to attend alevism [] Unable to walk/stand [] Unable to read [] Unable to drive [] Unable to eat/drink [] Unable to sleep [] Unable to be with family [] Patient intubated [] Other: Summary Time spent with patient
[2021-01-23 10:10] LABS: Basophils % 0.2 %; Hemoglobin 13.8 g/dL (11.5-15.3); Lymphocytes # 1.1 10^3/uL (0.8-4.8); Lymphocytes % 25.2 %; Mean Corpuscular HGB Conc 30.7 g/dL (30.0-36.0); Mean Corpuscular Hemoglobin 27.3 pg (28.0-34.0); Mean Corpuscular Volume 88.9 fL (81-99); Mean Platelet Volume 10.6 fL (7.4-10.4); Monocytes # 0.7 10^3/uL (0.2-0.9); Monocytes % 15.2 %; Neutrophils # 2.52 10^3/uL (1.8-7.7); Neutrophils % 58.9 %; Nucleated Red Blood Cells % 0 %; Platelet Count 235 10^3/cmm (130-400); Red Blood Count 5.06 10^6/uL (4.1-5.3); White Blood Count 4.3 10^3/uL (4.0-10.0)
[2021-01-23 10:19] LABS: INR 3.38 (0.8-1.2)
[2021-01-23 10:32] LABS: Glucose Point of Care 153 mg/dL (70-110)
[2021-01-23] MEDS: dilTIAZem 30 mg Tablet PO ×3 (10:34→21:16)
[2021-01-23 10:36] LABS: Alanine Aminotransferase 50 U/L (0-33); Albumin Level 3.4 g/dL (3.5-5.2); Alkaline Phosphatase 66 IU/L (35-105); Aspartate Amino Transferase 52 U/L (0-32); Blood Urea Nitrogen 10 mg/dL (8-23); Calcium 8.6 mg/dL (8.5-10.5); Carbon Dioxide 30 mmol/L (22-29); Chloride 97 mmol/L (98-107); Globulin 3.2 g/dL (1.3-4.6); Glomerular Filtration Rate 125.4 mL/min (90-130); Glucose 152 mg/dL (65-115); NT Pro B Type Natriuretic Pept 835 pg/mL (0-125); Osmolality Calculated 286 mOsm/kg (285-295); Sodium 137 mmol/L (136-145); Total Bilirubin 0.4 mg/dL (0.15-1.2); Total Protein 6.6 g/dL (6.6-8.7)
[2021-01-23] MEDS: bumetanide 0.25 mg/mL SDV 4 mL 1 MG IV ×2 (12:54→22:37)
--- NOTE | 2021-01-23 13:34 | PM.PN ---
Subjective Subjective: Interval history: Patient was seen this morning, she still on 5 L, nonrebreather, she tells me she is somewhat better, she continues to have shortness of breath, and lower extremity edema, she still in A. fib, still with Cardizem drip going at 10, afebrile overnight, normotensive, her urine output has been a bit lackluster Vitals/I&O/Wt Last Vital Signs Temp 97.3 F L 01/23/21 11:19 Pulse 68 01/23/21 11:19 Resp 18 01/23/21 11:19 BP 101/67 01/23/21 11:19 Pulse Ox 94 01/23/21 11:19 01/22/21 01/23/21 01/23/21 22:59 06:59 14:59 Intake Total 525 / 525 51 / 576 1200 / 1200 Output Total 225 / 225 Balance 525 / 525 -174 / 351 1200 / 1200 Weight last 48 hrs Weight 100.698 kg Physical Exam Const: COMMON NORMALS: no acute distress and patient oriented x3 Resp: COMMON NORMALS: normal respiratory effort, No retractions, No use of accessory muscles and clear to auscultation bilaterally AUSCULTATION: clear to auscultation bilaterally Cardio: COMMON NORMALS: regular rate, regular rhythm, S1 normal heart sound present and S2 normal heart sound present RATE: regular rate RHYTHM: regular rhythm HEART SOUNDS: S1 normal heart sound present and S2 normal heart sound present GI: COMMON NORMALS: Normal to inspection, nondistended, normoactive bowel sounds present, Soft to palpation and non-tender PALPATION: Yes Soft to palpation Extremity: NARRATIVE EXTREMITY EXAM: 1+ pitting edema bilaterally OTHER: Bilateral lower extremity, shins, macular, pinpoint, pruritic, nonblanching rash Neuro: COMMON NORMALS: patient oriented x3 Psych: COMMON NORMALS: mental status grossly normal Data : 01/23/21 09:53 01/23/21 09:53 Micro: Microbiology 01/23/21 00:49 Bacterial Antigens - Final Urine,Voided 01/22/21 13:50 Blood Culture - Preliminary Blood SPECIMEN COLLECTED 01/22/21 13:45 Blood Culture - Preliminary Blood SPECIMEN COLLECTED A&P Assessment and plan (1) Atrial fibrillation with RVR: Acute respiratory failure with hypoxia Multifactorial from A. fib with RVR, diastolic CHF, pulmonary edema, COVID-19, possible atypical pneumonia -CT angiogram of the chest shows no pulmonary emboli, but does show bilateral patches of predominantly peripheral ground-glass interstitial lung disease and early consolidated subsegmental alveolar airspace disease of suspected active pneumonitis/pneumonia. In today's current environment consideration might be given to Covid-19 pneumonitis. Marginally prominent mediastinal hilar lymph nodes believed most likely reactive in nature. -Cardiac echocardiogram shows, EF 63%, abnormal septal motion consistent with conduction abnormalities, mild biatrial enlargement, mild prolapse of anterior mitral leaflets, mild to moderate eccentric mitral regurg with regurgitant jet directed posteriorly, moderate to severe tricuspid valve regurg, pulmonary hypertension pressure 53 mmHg. Compared to the study from 04/23/2018, there is worsening of the mitral and tricuspid regurgitation and development of mild biatrial enlargement Plan: -Admit to CSU -COVID-19 precautions, Covid PCR sent out -Decadron 6 mg IV push daily -Remdesivir -Rocephin and azithromycin for possible atypical pneumonia -For A. fib with RVR, currently on Cardizem drip, wean as tolerated continue sotalol, start p.o. Cardizem -Increase Bumex 1 mg every 12 hours hours, for 2 doses, monitor creatinine, monitor potassium, fluid restrictions 1500 cc -Albuterol, Advair -Respiratory therapy -Incentive spirometer, flutter valve -Vitamin C, zinc, vitamin D -Low-dose sliding scale, A1c 6.6 -INR 3.38, on Coumadin, pharmacy to dose, recheck INR tomorrow -Follow blood cultures, sputum cultures, urine bacterial antigens - full code, patient tells me that she does not want to be left on ventilator for a prolonged period of time, if there is is no hope for coming off the ventilator she wanted to be stopped -DVT prophylaxis, Coumadin, INR 3.38 Status: Acute (2) COVID-19: Status: Acute (3) Chronic anticoagulation: Status: Acute (4) Essential hypertension: Status: Acute (5) Dyslipidemia: Status: Chronic (6) ASHD (arteriosclerotic heart disease): Status: Acute (7) Acute respiratory failure with hypoxia: Status: Acute (8) Mitral valve regurgitation: Status: Acute (9) Tricuspid valve regurgitation: Status: Acute (10) Pulmonary hypertension: Status: Acute (11) Diastolic CHF: Status: Acute Attestations Medical Necessity Statement*: Patient requires hospitalization for acute respiratory failure with hypoxia secondary to COVID-19, diastolic CHF, A. fib, pulmonary edema, atypical pneumonia Coding Level of Care Code Acute Chemical Operations Specialist for [facility] Fwd Diagnoses Atrial fibrillation with RVR I48.91 COVID-19 U07.1 Chronic anticoagulation Z79.01 Essential hypertension I10 Dyslipidemia E78.5 ASHD (arteriosclerotic heart disease) I25.10 Acute respiratory failure with hypoxia J96.01 Mitral valve regurgitation I34.0 Tricuspid valve regurgitation I07.1 Pulmonary hypertension I27.20 Diastolic CHF I50.30
--- NOTE | 2021-01-23 15:54 | USCV_ITS ---
Ivette Wheeler Age: 60 Gender: F : 1960 Exam Date: 01/23/2021 06:39 Ordering Phys: Hosea Garcia MD Technologist: Exam Location: [facility] Indication: SOB CHEST PAIN BP: 125 / 85 HR: 95 Rhythm: Sinus Technical Quality: Adequate MEASUREMENTS (Male / Female) Normal Values 2D ECHO LV Diastolic Diameter PLAX 5.3 cm 4.2 - 5.9 / 3.9 - 5.3 cm LV Systolic Diameter PLAX 3.7 cm IVS Diastolic Thickness 1.6 cm 0.6 - 1.0 / 0.6 - 0.9 cm IVS Systolic Thickness 1.9 cm LVPW Diastolic Thickness 1.6 cm 0.6 - 1.0 / 0.6 - 0.9 cm LVPW Systolic Thickness 1.8 cm LVOT Diameter 0.0 cm LV Ejection Fraction 2D Teich 50.7 % LV Ejection Fraction MOD 2C 53.1 % LV Ejection Fraction 2C AL 54.2 % LA Diameter 4.5 cm LA Width 3.5 cm LA Height 6.1 cm RA Width 4.3 cm RA Height 5.9 cm Aorta at Sinotubular Diameter 2.9 cm DOPPLER AV Peak Velocity 128.0 cm/s LVOT Peak Velocity 104.0 cm/s AV Area Cont Eq vti 0.0 cm squared AV Area Cont Eq pk 0.0 cm squared MV Area PHT 5.0 cm squared Mitral E to A Ratio 3.1 MV E' Velocity 52.0 cm/s Mitral E to MV E' Ratio 5.5 Mitral E to LV E' Lateral Ratio 4.5 Mitral E to LV E' Septal Ratio 7.0 TR Peak Velocity 354.7 cm/s TR Peak Gradient 50.3 mmHg TV Peak E Velocity 119.0 cm/s Right Atrial Pressure 3.0 mmHg Pulmonary Artery Systolic Pressu 53.3 mmHg PV Peak Velocity 79.0 cm/s FINDINGS Left Ventricle Normal left ventricular size and systolic function, EF 63 %. Abnormal septal motion consistent with conduction abnormality. Right Ventricle The right ventricle is normal in size and function. Right Atrium Mildly increased right atrial size. Left Atrium Mildly increased left atrial size. Mitral Valve Mild prolapse of the anterior mitral leaflets. Mild to moderate eccentric mitral regurgitation with the regurgitant jet directed posteriorly Aortic Valve Minimally thickened Tricuspid Valve [id number]-[id number] tricuspid valve regurgitation. Estimated pulmonary artery peak systolic pressure 53 mmHg Pulmonic Valve Pulmonic valve not well visualized. Pericardium Normal pericardium without effusion. Aorta Normal ascending aorta dimension. CONCLUSIONS Normal left ventricular size and systolic function, EF 63 %. Abnormal septal motion consistent with conduction abnormality. Mild biatrial enlargementMild prolapse of the anterior mitral leaflets. Mild to moderate eccentric mitral regurgitation with the regurgitant jet directed posteriorly. [id number] tricuspid valve regurgitation. Pulmonary hypertension with an estimated pulmonary artery peak systolic pressure of 53 mmHg. There is no pericardial effusion. There are no intracardiac masses. Compared to the study from 04/23/2018, there is worsening of the mitral and tricuspid regurgitation and development of mild biatrial enlargement Dr Parish Anderson MD FAC (Electronically Signed) Final Date: 23 January 2021 10:04 S
[2021-01-23] MEDS: azithromycin 500 MG in sodium chloride 0.9% 250 ML 250 MG IV (15:58)
[2021-01-23 17:08] LABS: Glucose Point of Care 185 mg/dL (70-110)
[2021-01-23] MEDS: cefTRIAXone 1,000 MG in sodium chloride 0.9% (plus) 50 ML 100 MG IV (17:40)
[2021-01-23] MEDS: remdesivir 100 MG in sodium chloride 0.9% (100 ml) 100 ML IV (18:44)
[2021-01-23 23:54] LABS: Glucose Point of Care 218 mg/dL (70-110)
[2021-01-24] VITALS (11 sets, daily range): BP systolic 109–145; BP diastolic 59–97; PULSE 82–132; RESP 14–24; TEMP 36.2–36.9; O2SAT 91–94
[2021-01-24] MEDS: dilTIAZem 30 mg Tablet PO ×4 (03:47→20:55)
--- NOTE | 2021-01-24 06:00 | ECG_ITS ---
[facility] Test Date: 2021-01-24 Pat Name: Ivette Wheeler Department: Room: 104 Gender: Female Poolroom Table Attendant: : 1960 Requested By: Hosea Garcia Order Number: [id number] [place] MD: Parish Anderson M.D. Measurements Intervals [place] Rate: 92 P: [place]: QRS: 11 QRSD: 85 T: -47 QT: 371 QTc: 460 Interpretive Statements ATRIAL FIBRILLATION LOW QRS VOLTAGE IN PRECORDIAL LEADS [QRS DEFLECTION < 1.0 mV IN CHEST LEADS] NONSPECIFIC T-WAVE ABNORMALITY ABNORMAL RHYTHM ECG Compared to ECG 01/22/2021 17:59:13 Low QRS voltage now present T-wave abnormality still present Electronically Signed On 01-24-2021 22:58:01 CDT by Parish Anderson M.D. [id number]
[2021-01-24] MEDS: clopidogrel 75 mg Tablet PO (06:24)
[2021-01-24] MEDS: fenofibrate 145 mg Tablet PO (06:24)
[2021-01-24] MEDS: levothyroxine 150 mcg Tablet PO (06:24)
[2021-01-24 06:50] LABS: Glucose Point of Care 130 mg/dL (70-110)
--- NOTE | 2021-01-24 07:00 | XR_ITS ---
WS: [id number] Portable AP semiupright chest, 01/24/2021 Clinical Data: sob Comparison: Portable chest, 01/22/2021. Findings: The bilateral patchy pulmonary opacities remain the same. The heart is slightly enlarged. N o nodules or masses are seen. Midline sternotomy sutures are present. Monitor leads are on the chest wall. XR/XR chest 1V portable [id number] Impression: No change in bilateral patchy pulmonary opacities.
[2021-01-24] MEDS: famotidine 20 mg Tablet PO ×2 (09:01→17:14)
[2021-01-24] MEDS: zinc gluconate 50 mg Tablet PO (09:01)
[2021-01-24] MEDS: ascorbic acid 500 mg Tablet PO ×2 (09:01→17:14)
[2021-01-24] MEDS: sotalol 80 mg Tablet 120 MG PO ×2 (09:01→17:14)
[2021-01-24] MEDS: cholecalciferol (vitamin D3) 1,000 unit Tablet 1000 UNIT PO (09:01)
[2021-01-24] MEDS: dexamethasone 4 mg/mL INJ 6 MG IVP (09:01)
[2021-01-24 09:44] LABS: Basophils % 0.2 %; Hematocrit 47.7 % (37.0-47.0); Hemoglobin 14.6 g/dL (11.5-15.3); Lymphocytes # 1.4 10^3/uL (0.8-4.8); Lymphocytes % 21.9 %; Mean Corpuscular HGB Conc 30.6 g/dL (30.0-36.0); Mean Corpuscular Hemoglobin 27.5 pg (28.0-34.0); Mean Platelet Volume 10.4 fL (7.4-10.4); Monocytes # 0.9 10^3/uL (0.2-0.9); Monocytes % 13.4 %; Neutrophils # 4.16 10^3/uL (1.8-7.7); Neutrophils % 64.2 %; Nucleated Red Blood Cells % 0 %; Platelet Count 294 10^3/cmm (130-400); White Blood Count 6.5 10^3/uL (4.0-10.0)
[2021-01-24 09:53] LABS: Albumin Level 3.6 g/dL (3.5-5.2); Alkaline Phosphatase 73 IU/L (35-105); Anion Gap 13.2 (5-19); Aspartate Amino Transferase 63 U/L (0-32); Blood Urea Nitrogen 17 mg/dL (8-23); C Reactive Protein 38.9 mg/L (0.0-4.9); Carbon Dioxide 36 mmol/L (22-29); Chloride 97 mmol/L (98-107); Globulin 3.4 g/dL (1.3-4.6); Glomerular Filtration Rate 101.6 mL/min (90-130); Glucose 128 mg/dL (65-115); Osmolality Calculated 297 mOsm/kg (285-295); Phosphorus 2.5 mg/dL (2.5-4.5); Potassium 4.2 mmol/L (3.5-5.1); Sodium 142 mmol/L (136-145); Total Bilirubin 0.5 mg/dL (0.15-1.2)
[2021-01-24 10:06] LABS: Procalcitonin 0.12 ng/mL (0-0.5)
[2021-01-24 10:08] LABS: NT Pro B Type Natriuretic Pept 728 pg/mL (0-125)
[2021-01-24 10:17] LABS: Alanine Aminotransferase 54 U/L (0-33)
[2021-01-24 10:53] LABS: Glucose Point of Care 218 mg/dL (70-110)
[2021-01-24] MEDS: azithromycin 500 MG in sodium chloride 0.9% 250 ML 250 MG IV (12:59)
--- NOTE | 2021-01-24 13:48 | P.PN_ITS ---
Subjective Subjective: Interval history: No new clinical events overnight, no fever or chills stable on o2 Medications: Reviewed: Yes Vitals/I&O/Wt Last Vital Signs Temp 98.5 F 01/24/21 23:24 Pulse 102 H 01/24/21 23:24 Resp 22 H 01/24/21 23:24 BP 145/94 01/24/21 23:24 Pulse Ox 92 01/24/21 23:24 01/24/21 01/24/21 01/25/21 14:59 22:59 06:59 Intake Total 970.0 / 970.0 530 / 1500.0 Output Total 500 / 500 Balance 470.0 / 470.0 530 / 1000.0 Physical Exam Const: COMMON NORMALS: no acute distress and patient oriented x3 HENMT: COMMON NORMALS: normocephalic HEAD & SCALP: normocephalic Eye: COMMON NORMALS: Equal, round and reactive pupils present and EOMs intact bilaterally GENERAL EYE: appearance normal, both eyes and all related structures PUPIL: Yes Equal, round and reactive pupils present Neck/C-Spine: COMMON NORMALS: full ROM, no lymphadenopathy and Thyroid normal THYROID: Thyroid normal Lymph: LYMPHATIC: no lymphadenopathy noted Resp: COMMON NORMALS: normal respiratory effort, No retractions, No use of accessory muscles and clear to auscultation bilaterally AUSCULTATION: clear to auscultation bilaterally and crackles Cardio: COMMON NORMALS: regular rate, regular rhythm, S1 normal heart sound present, S2 normal heart sound present, No gallops present (Cardio), No clicks present (Cardio) and No murmurs present (Cardio) RATE: regular rate RHYTHM: regular rhythm HEART SOUNDS: S1 normal heart sound present and S2 normal heart sound present GI: COMMON NORMALS: Normal to inspection, nondistended, normoactive bowel sounds present, Soft to palpation, non-tender and No hepatosplenomegaly present PALPATION: Yes Soft to palpation and Yes No hepatosplenomegaly present Extremity: COMMON NORMALS: normal to inspection NARRATIVE EXTREMITY EXAM: 1+ pitting edema bilaterally OTHER: Bilateral lower extremity, shins, macular, pinpoint, pruritic, nonblanching rash Neuro: COMMON NORMALS: patient oriented x3, CN's II-XII intact bilaterally, moves all extremities and no focal motor deficits Psych: COMMON NORMALS: mental status grossly normal, Normal thought process present and cooperative THOUGHT PROCESS: Normal thought process present Data : 01/24/21 09:25 01/24/21 09:25 Micro: Microbiology 01/24/21 04:15 Gram Stain - Final Sputum - Expectorated Sputum A&P Assessment and plan (1) Atrial fibrillation with RVR: Cardizem 30 mg Po q6hr Warfarin INR in am Sotalol Status: Acute (2) COVID-19: Remdesivir duoneb Decadron wean 02 Status: Acute (3) Chronic anticoagulation: Status: Acute (4) Essential hypertension: Status: Acute (5) Dyslipidemia: Status: Chronic (6) ASHD (arteriosclerotic heart disease): Status: Acute (7) Acute respiratory failure with hypoxia: Status: Acute (8) Mitral valve regurgitation: Status: Acute (9) Tricuspid valve regurgitation: Status: Acute (10) Pulmonary hypertension: Status: Acute (11) Diastolic CHF: Status: Acute Attestations Medical Necessity Statement*: Continue hospitalization for management of covid 19 pneumonia Time Spent in Patient Care: Greater than 35 minutes (>than 50% of time spent in counselling and/or direct pt care on unit) . Coding Level of Care Code Acute Chainstitch Pants Outseamer for [facility] Fwd Diagnoses Atrial fibrillation with RVR I48.91 COVID-19 U07.1 Chronic anticoagulation Z79.01 Essential hypertension I10 Dyslipidemia E78.5 ASHD (arteriosclerotic heart disease) I25.10 Acute respiratory failure with hypoxia J96.01 Mitral valve regurgitation I34.0 Tricuspid valve regurgitation I07.1 Pulmonary hypertension I27.20 Diastolic CHF I50.30
[2021-01-24] MEDS: warfarin 3 mg Tablet 9 MG PO (15:08)
[2021-01-24] MEDS: cefTRIAXone 1,000 MG in sodium chloride 0.9% (plus) 50 ML 100 MG IV (17:13)
[2021-01-24 17:47] LABS: Glucose Point of Care 188 mg/dL (70-110)
[2021-01-24] MEDS: remdesivir 100 MG in sodium chloride 0.9% (100 ml) 100 ML IV (18:02)
[2021-01-24 20:45] LABS: Glucose Point of Care 246 mg/dL (70-110)
[2021-01-25] VITALS (11 sets, daily range): BP systolic 122–154; BP diastolic 70–112; PULSE 23–116; RESP 20–110; TEMP 36.3–36.8; O2SAT 91–93
[2021-01-25] MEDS: dilTIAZem 30 mg Tablet PO ×2 (03:12→11:07)
[2021-01-25] MEDS: clopidogrel 75 mg Tablet PO (06:56)
[2021-01-25] MEDS: fenofibrate 145 mg Tablet PO (06:56)
[2021-01-25] MEDS: levothyroxine 150 mcg Tablet PO (06:56)
[2021-01-25 07:05] LABS: Glucose Point of Care 159 mg/dL (70-110)
--- NOTE | 2021-01-25 08:30 | PC.NURSE ---
Pt sitting on the side of the bed talking to staff. Resp even and non-labored. Pt had no c/o pain or discomfort. No needs voiced. Call light in reach.
[2021-01-25 10:53] LABS: Hematocrit 47.9 % (37.0-47.0); Hemoglobin 14.5 g/dL (11.5-15.3); Lymphocytes # 1.2 10^3/uL (0.8-4.8); Lymphocytes % 22.3 %; Mean Corpuscular HGB Conc 30.3 g/dL (30.0-36.0); Mean Corpuscular Hemoglobin 27.4 pg (28.0-34.0); Mean Corpuscular Volume 90.5 fL (81-99); Mean Platelet Volume 10.3 fL (7.4-10.4); Monocytes # 0.6 10^3/uL (0.2-0.9); Monocytes % 10.6 %; Neutrophils # 3.68 10^3/uL (1.8-7.7); Neutrophils % 66.4 %; Nucleated Red Blood Cells % 0 %; Platelet Count 264 10^3/cmm (130-400); Red Blood Count 5.29 10^6/uL (4.1-5.3); Red Cell Distribution Width 13.9 % (12.1-15.1); White Blood Count 5.6 10^3/uL (4.0-10.0)
[2021-01-25 11:06] LABS: Alanine Aminotransferase 48 U/L (0-33); Albumin Level 3.4 g/dL (3.5-5.2); Alkaline Phosphatase 65 IU/L (35-105); Anion Gap 12.1 (5-19); Aspartate Amino Transferase 56 U/L (0-32); Blood Urea Nitrogen 15 mg/dL (8-23); C Reactive Protein 19.3 mg/L (0.0-4.9); Carbon Dioxide 34 mmol/L (22-29); Chloride 99 mmol/L (98-107); Globulin 3.1 g/dL (1.3-4.6); Glomerular Filtration Rate 162.3 mL/min (90-130); Glucose 165 mg/dL (65-115); Magnesium 2.3 mg/dL (1.7-2.3); Osmolality Calculated 297 mOsm/kg (285-295); Phosphorus 2.9 mg/dL (2.5-4.5); Potassium 4.1 mmol/L (3.5-5.1); Sodium 141 mmol/L (136-145); Total Bilirubin 0.4 mg/dL (0.15-1.2); Total Protein 6.5 g/dL (6.6-8.7)
[2021-01-25] MEDS: zinc gluconate 50 mg Tablet PO (11:07)
[2021-01-25] MEDS: ascorbic acid 500 mg Tablet PO ×2 (11:07→18:51)
[2021-01-25] MEDS: famotidine 20 mg Tablet PO ×2 (11:08→18:52)
[2021-01-25] MEDS: cholecalciferol (vitamin D3) 1,000 unit Tablet 1000 UNIT PO (11:08)
[2021-01-25] MEDS: sotalol 80 mg Tablet 120 MG PO ×2 (11:09→18:51)
[2021-01-25] MEDS: dexamethasone 4 mg/mL INJ 6 MG IVP (11:11)
[2021-01-25 11:16] LABS: Glucose Point of Care 157 mg/dL (70-110)
[2021-01-25 11:29] LABS: NT Pro B Type Natriuretic Pept 1153 pg/mL (0-125)
[2021-01-25 11:50] LABS: Slide Review Slide Review Perform
--- NOTE | 2021-01-25 14:13 | PM.PN ---
Subjective Subjective: Interval history: Noted dyspnea on exertion, no fever, chills, nausea or vomiting. Medications: Reviewed: Yes Vitals/I&O/Wt Last Vital Signs Temp 97.4 F L 01/25/21 12:00 Pulse 111 H 01/25/21 13:35 Resp 20 H 01/25/21 13:35 BP 129/96 01/25/21 12:00 Pulse Ox 93 01/25/21 13:35 01/24/21 01/25/21 01/25/21 22:59 06:59 14:59 Intake Total 930 / 1900.0 200 / 2100.0 600 / 600 Output Total 400 / 900 Balance 930 / 1400.0 -200 / 1200.0 600 / 600 Physical Exam Const: COMMON NORMALS: no acute distress and patient oriented x3 HENMT: COMMON NORMALS: normocephalic HEAD & SCALP: normocephalic Eye: COMMON NORMALS: Equal, round and reactive pupils present and EOMs intact bilaterally GENERAL EYE: appearance normal, both eyes and all related structures PUPIL: Yes Equal, round and reactive pupils present Neck/C-Spine: COMMON NORMALS: full ROM, no lymphadenopathy and Thyroid normal THYROID: Thyroid normal Lymph: LYMPHATIC: no lymphadenopathy noted Resp: COMMON NORMALS: normal respiratory effort, No retractions, No use of accessory muscles and clear to auscultation bilaterally AUSCULTATION: clear to auscultation bilaterally and crackles Cardio: COMMON NORMALS: regular rate, regular rhythm, S1 normal heart sound present, S2 normal heart sound present, No gallops present (Cardio), No clicks present (Cardio) and No murmurs present (Cardio) RATE: regular rate RHYTHM: regular rhythm HEART SOUNDS: S1 normal heart sound present and S2 normal heart sound present GI: COMMON NORMALS: Normal to inspection, nondistended, normoactive bowel sounds present, Soft to palpation, non-tender and No hepatosplenomegaly present PALPATION: Yes Soft to palpation and Yes No hepatosplenomegaly present Extremity: COMMON NORMALS: normal to inspection NARRATIVE EXTREMITY EXAM: 1+ pitting edema bilaterally OTHER: Bilateral lower extremity, shins, macular, pinpoint, pruritic, nonblanching rash Neuro: COMMON NORMALS: patient oriented x3, CN's II-XII intact bilaterally, moves all extremities and no focal motor deficits Psych: COMMON NORMALS: mental status grossly normal, Normal thought process present and cooperative THOUGHT PROCESS: Normal thought process present Data : 01/25/21 10:35 01/25/21 10:35 Micro: Microbiology 01/24/21 04:15 Gram Stain - Final Sputum - Expectorated Sputum A&P Assessment and plan (1) Acute respiratory failure with hypoxia: Due to covid 19 pneuonia Status: Acute (2) COVID-19: Remdesivir to complete tomorrow 6 pm Duoneb Decadron Wean 02 - home o2 eval Outpatiet follow up with Pulmonary Status: Acute (3) Atrial fibrillation with RVR: Cardizem 30 mg Po q6hr - change to cardizem 120 mg daily Warfarin - pharmacy to dose INR in am Status: Acute (4) Chronic anticoagulation: Coumadin INR in am Status: Acute (5) Essential hypertension: Status: Acute (6) Dyslipidemia: Status: Chronic (7) ASHD (arteriosclerotic heart disease): Status: Acute (8) Mitral valve regurgitation: Status: Acute (9) Tricuspid valve regurgitation: Status: Acute (10) Pulmonary hypertension: Status: Acute (11) Diastolic CHF: Status: Acute Additional A&P Information Plan to discharge home tomorrow, possibly on o2. Attestations Medical Necessity Statement*: Will require additional day in hospital for completion of therapy for COVID-19 pneuonia Time Spent in Patient Care: Greater than 35 minutes (>than 50% of time spent in counselling and/or direct pt care on unit). Coding Level of Care Code Acute Clinical Laboratory Technologist for [facility] Fwd Exam Comprehensive Diagnoses Acute respiratory failure with hypoxia J96.01 COVID-19 U07.1 Atrial fibrillation with RVR I48.91 Chronic anticoagulation Z79.01 Essential hypertension I10 Dyslipidemia E78.5 ASHD (arteriosclerotic heart disease) I25.10 Mitral valve regurgitation I34.0 Tricuspid valve regurgitation I07.1 Pulmonary hypertension I27.20 Diastolic CHF I50.30
[2021-01-25] MEDS: azithromycin 500 MG in sodium chloride 0.9% 250 ML 250 MG IV (15:46)
[2021-01-25] MEDS: warfarin 3 mg Tablet 9 MG PO (15:47)
[2021-01-25 18:05] LABS: Glucose Point of Care 266 mg/dL (70-110)
[2021-01-25] MEDS: cefTRIAXone 1,000 MG in sodium chloride 0.9% (plus) 50 ML 100 MG IV (18:51)
[2021-01-25] MEDS: remdesivir 100 MG in sodium chloride 0.9% (100 ml) 100 ML IV (18:53)
--- NOTE | 2021-01-25 23:17 | PC.NURSE ---
Bedside report received from Boaz RN. Patient is resting in bed. A & O, voices no C/O of pain or other needs at this time. Call light within reach
[2021-01-26] VITALS (15 sets, daily range): BP systolic 125–141; BP diastolic 85–90; PULSE 89–135; RESP 18–20; TEMP 36–36.5; O2SAT 82–94
[2021-01-26 05:09] LABS: Basophils % 0.2 %; Hematocrit 45.7 % (37.0-47.0); Hemoglobin 14.1 g/dL (11.5-15.3); Lymphocytes # 1.2 10^3/uL (0.8-4.8); Lymphocytes % 24.5 %; Mean Corpuscular HGB Conc 30.9 g/dL (30.0-36.0); Mean Corpuscular Hemoglobin 27.3 pg (28.0-34.0); Mean Corpuscular Volume 88.4 fL (81-99); Mean Platelet Volume 10.4 fL (7.4-10.4); Monocytes # 0.6 10^3/uL (0.2-0.9); Monocytes % 11.5 %; Neutrophils # 3.02 10^3/uL (1.8-7.7); Neutrophils % 63.4 %; Nucleated Red Blood Cells % 0 %; Platelet Count 247 10^3/cmm (130-400); Red Blood Count 5.17 10^6/uL (4.1-5.3); Red Cell Distribution Width 13.7 % (12.1-15.1); White Blood Count 4.8 10^3/uL (4.0-10.0)
[2021-01-26 05:27] LABS: INR 2.68 (0.8-1.2)
[2021-01-26] MEDS: clopidogrel 75 mg Tablet PO (05:30)
[2021-01-26] MEDS: levothyroxine 150 mcg Tablet PO (05:30)
[2021-01-26] MEDS: fenofibrate 145 mg Tablet PO (05:31)
[2021-01-26 05:42] LABS: NT Pro B Type Natriuretic Pept 1487 pg/mL (0-125); Procalcitonin 0.08 ng/mL (0-0.5)
[2021-01-26 05:50] LABS: Slide Review Slide Review Perform
[2021-01-26 05:53] LABS: Alanine Aminotransferase 44 U/L (0-33); Albumin Level 3.3 g/dL (3.5-5.2); Alkaline Phosphatase 59 IU/L (35-105); Anion Gap 14.5 (5-19); Aspartate Amino Transferase 39 U/L (0-32); Blood Urea Nitrogen 15 mg/dL (8-23); C Reactive Protein 11.8 mg/L (0.0-4.9); Calcium 8.2 mg/dL (8.5-10.5); Carbon Dioxide 31 mmol/L (22-29); Chloride 100 mmol/L (98-107); Globulin 2.8 g/dL (1.3-4.6); Glomerular Filtration Rate 162.3 mL/min (90-130); Glucose 177 mg/dL (65-115); Magnesium 2.1 mg/dL (1.7-2.3); Osmolality Calculated 297 mOsm/kg (285-295); Phosphorus 3.5 mg/dL (2.5-4.5); Potassium 4.5 mmol/L (3.5-5.1); Sodium 141 mmol/L (136-145); Total Bilirubin 0.3 mg/dL (0.15-1.2); Total Protein 6.1 g/dL (6.6-8.7)
--- NOTE | 2021-01-26 06:00 | ECG_ITS ---
[facility] Test Date: 2021-01-26 Pat Name: Ivette Wheeler Department: Room: 104 Gender: Female [place]: : 1960 Requested By: Hosea Garcia Order Number: [id number] Reading MD: AGNES SARABIA Measurements Intervals [place] Rate: 108 P: MS: QRS: 23 QRSD: 90 T: -17 QT: 357 QTc: 479 Interpretive Statements ATRIAL FIBRILLATION WITH RAPID VENTRICULAR RESPONSE NONSPECIFIC T-WAVE ABNORMALITY ABNORMAL RHYTHM ECG Compared to ECG 01/24/2021 05:55:46 No significant changes Electronically Signed On 01-26-2021 14:30:13 CDT by AGNES SARABIA [id number]
[2021-01-26 06:45] LABS: Glucose Point of Care 146 mg/dL (70-110)
[2021-01-26] MEDS: sotalol 80 mg Tablet 120 MG PO ×2 (08:34→17:21)
[2021-01-26] MEDS: cholecalciferol (vitamin D3) 1,000 unit Tablet 1000 UNIT PO (08:34)
[2021-01-26] MEDS: zinc gluconate 50 mg Tablet PO (08:34)
[2021-01-26] MEDS: ascorbic acid 500 mg Tablet PO ×2 (08:34→17:20)
[2021-01-26] MEDS: dilTIAZem ER (24HR) 120 mg Capsule PO (08:35)
[2021-01-26] MEDS: famotidine 20 mg Tablet PO ×2 (08:35→17:20)
--- NOTE | 2021-01-26 09:00 | PC.NURSE ---
Difficulty swallowing Pt is frustrated. HR-12s to 130s, afib. she stated everything was just not going right today. Pt stated she did not get her 2% milk and brought her a skim milk for breakfast. She swallowed her pills and had difficulty taking it. She attempted x3 with one pill at a time and she finally did swallow it. I asked her if she had trouble swallowing before, she stated, i have trouble swallowing occasionally at home and long time ago. It just won't go down. Pt denies any pain upon swallowing.Teach pt to brush her teeth and gargle her throat to help. Pt verbalizes understanding. Dr. Pedro notified on pt's rapid heart rate and trouble swallowing.
[2021-01-26] MEDS: dexamethasone 4 mg Tablet 6 MG PO (11:53)
--- NOTE | 2021-01-26 12:00 | PC.NURSE ---
home oxygen delivered
[2021-01-26 12:11] LABS: Glucose Point of Care 128 mg/dL (70-110)
--- NOTE | 2021-01-26 13:52 | PM.PN ---
Subjective Subjective: Interval history: Patient was to be discharged yesterday. This was delayed however due to patients noted to have dysphagia with medications. did not have any dysphagia with meals. Did have an episode similar to this in the past. No fever, chills, nausea vomiting. Medications: Reviewed: Yes Vitals/I&O/Wt Last Vital Signs Temp 98.3 F 01/27/21 07:52 Pulse 107 H 01/27/21 08:17 Resp 22 H 01/27/21 08:15 BP 147/106 01/27/21 07:52 Pulse Ox 96 01/27/21 08:15 01/26/21 01/27/21 01/27/21 22:59 06:59 14:59 Intake Total 570 / 1410 50 / 1460 725 / 725 Balance 570 / 1410 50 / 1460 725 / 725 Physical Exam Const: COMMON NORMALS: no acute distress and patient oriented x3 HENMT: COMMON NORMALS: normocephalic HEAD & SCALP: normocephalic Eye: COMMON NORMALS: Equal, round and reactive pupils present and EOMs intact bilaterally GENERAL EYE: appearance normal, both eyes and all related structures PUPIL: Yes Equal, round and reactive pupils present Neck/C-Spine: COMMON NORMALS: full ROM, no lymphadenopathy and Thyroid normal THYROID: Thyroid normal Lymph: LYMPHATIC: no lymphadenopathy noted Resp: COMMON NORMALS: normal respiratory effort, No retractions, No use of accessory muscles and clear to auscultation bilaterally AUSCULTATION: clear to auscultation bilaterally and crackles Cardio: COMMON NORMALS: regular rate, regular rhythm, S1 normal heart sound present, S2 normal heart sound present, No gallops present (Cardio), No clicks present (Cardio) and No murmurs present (Cardio) RATE: regular rate RHYTHM: regular rhythm HEART SOUNDS: S1 normal heart sound present and S2 normal heart sound present GI: COMMON NORMALS: Normal to inspection, nondistended, normoactive bowel sounds present, Soft to palpation, non-tender and No hepatosplenomegaly present PALPATION: Yes Soft to palpation and Yes No hepatosplenomegaly present Extremity: COMMON NORMALS: normal to inspection NARRATIVE EXTREMITY EXAM: 1+ pitting edema bilaterally OTHER: Bilateral lower extremity, shins, macular, pinpoint, pruritic, nonblanching rash Neuro: COMMON NORMALS: patient oriented x3, CN's II-XII intact bilaterally, moves all extremities and no focal motor deficits Psych: COMMON NORMALS: mental status grossly normal, Normal thought process present and cooperative THOUGHT PROCESS: Normal thought process present Data : 01/26/21 04:55 01/26/21 04:55 Micro: Microbiology 01/24/21 04:15 Gram Stain - Final Sputum - Expectorated Sputum Sputum Culture - Final A&P Assessment and plan (1) Acute respiratory failure with hypoxia: Due to covid 19 pneuonia Status: Acute (2) COVID-19: Remdesivir to complete tomorrow 6 pm Duoneb Decadron Wean 02 - home o2 eval Outpatiet follow up with Pulmonary Status: Acute (3) Atrial fibrillation with RVR: Cardizem 180 mg oral daily Warfarin - pharmacy to dose Status: Acute (4) Chronic anticoagulation: Coumadin Status: Acute (5) Essential hypertension: Status: Acute (6) Dyslipidemia: Status: Chronic (7) ASHD (arteriosclerotic heart disease): Status: Acute (8) Mitral valve regurgitation: Status: Acute (9) Tricuspid valve regurgitation: Status: Acute (10) Pulmonary hypertension: Status: Acute (11) Diastolic CHF: Status: Acute Additional A&P Information discharge was delayed due to dysphagia will request speech therapy evaluation in discharge tomorrow if no new issues. Home O2 eval was obtained. Attestations Medical Necessity Statement*: Will require further hospitalization for management of dysphagia and COVID-19 Time Spent in Patient Care: Greater than 35 minutes (>than 50% of time spent in counselling and/or direct pt care on unit). Coding Level of Care Code Acute Emr Specialist for [facility] Fwd Diagnoses Acute respiratory failure with hypoxia J96.01 COVID-19 U07.1 Atrial fibrillation with RVR I48.91 Chronic anticoagulation Z79.01 Essential hypertension I10 Dyslipidemia E78.5 ASHD (arteriosclerotic heart disease) I25.10 Mitral valve regurgitation I34.0 Tricuspid valve regurgitation I07.1 Pulmonary hypertension I27.20 Diastolic CHF I50.30
--- NOTE | 2021-01-26 14:09 | P.DS_ITS ---
Discharge Providers Date of Admission: 01/22/21 13:55 Date of Discharge: January 26, 2021 Attending Provider at Admission: Hosea Garcia MD Attending Provider at Discharge: Ann-Marie Pedro Primary Care Provider: Yulia Hunter Diagnoses at Discharge Discharge Diagnosis (1) Acute respiratory failure with hypoxia: Status: Acute (2) COVID-19: Status: Acute (3) Atrial fibrillation with RVR: Status: Acute (4) Chronic anticoagulation: Status: Acute (5) Essential hypertension: Status: Acute (6) Dyslipidemia: Status: Chronic (7) ASHD (arteriosclerotic heart disease): Status: Acute (8) Mitral valve regurgitation: Status: Acute (9) Tricuspid valve regurgitation: Status: Acute (10) Pulmonary hypertension: Status: Acute (11) Diastolic CHF: Status: Acute Reason for Visit Reason for Visit: Chest Pain, Trouble Breathing Hospital Course Hospital Course 60 year old female with a past medical history of diastolic CHF, atrial fibrillation on Coumadin, hypertension, CABG x3, CAD status post stenting x1 on Plavix, year ago, [id number] type 2 diabetes mellitus, history of DVT, who presents to [facility] due to cough, chest pain, shortness of breath, hemoptysis, fatigue, malaise. Patient tells me that she has been having productive, shortness of breath with exertion for the last few days, she also had hemoptysis, she is also developed worsening swelling of her legs, this morning she started follow-up increased shortness of breath, palpitations, chest pain so she decided to come to emergency room. No known Covid exposure, she has not received the Covid vaccine as of yet. Does take Lasix 20 mg daily. Denies any calf pain or calf swelling. She does report loss of taste, loss of smell, does have a rash on her bilateral lower extremities Upon admission to the hospitalLaboratory workup showed a WBC of 5.1, hemoglobin of 14.4, hematocrit 46.2, platelet count of 202. INR of 3.89. Sodium 138, potassium 4.3, chloride 99, bicarb 24, BUN 8 and creatinine of 0.5. COVID-19 rapid antigen was positive.Imaging studies included a chest x-ray which showed interstitial prominence an asymmetric airspace disease right greater than left consistent with bronchopneumonia.CT angio of chest was done which showed bilateral patchy ground-glass interstitial lung disease and early consolidated sub segmental alveolar airspace disease of suspected active pneumonitis/pneumonia. No pulmonary embolism was noted.Patient was started on Remdesivir 5 days protocol and decadron 6 mg daily. Respiratory status improved. Patient was weaned however required o2 at discharge which was obtain. hospitalization was complicated with atrial fibrillation with rapid ventricular response. Patient was continued on her usual sotalol dose. In addition to this she was started on Cardizem 30 mg q.i.d.. This was transitioned to Cardizem long-acting 180 mg daily. Patient was discharged and advised to follow-up with primary care physician and Cardiology shortly after discharge. Physical Exam Const: COMMON NORMALS: no acute distress and patient oriented x3 HENMT: COMMON NORMALS: normocephalic HEAD & SCALP: normocephalic Eye: COMMON NORMALS: Equal, round and reactive pupils present and EOMs intact bilaterally GENERAL EYE: appearance normal, both eyes and all related structures PUPIL: Yes Equal, round and reactive pupils present Neck/C-Spine: COMMON NORMALS: full ROM, no lymphadenopathy and Thyroid normal THYROID: Thyroid normal Lymph: LYMPHATIC: no lymphadenopathy noted Resp: COMMON NORMALS: normal respiratory effort, No retractions, No use of accessory muscles and clear to auscultation bilaterally AUSCULTATION: clear to auscultation bilaterally and crackles Cardio: COMMON NORMALS: regular rate, regular rhythm, S1 normal heart sound present, S2 normal heart sound present, No gallops present (Cardio), No clicks present (Cardio) and No murmurs present (Cardio) RATE: regular rate RHYTHM: regular rhythm HEART SOUNDS: S1 normal heart sound present and S2 normal heart sound present GI: COMMON NORMALS: Normal to inspection, nondistended, normoactive bowel sounds present, Soft to palpation, non-tender and No hepatosplenomegaly present PALPATION: Yes Soft to palpation and Yes No hepatosplenomegaly present Extremity: COMMON NORMALS: normal to inspection NARRATIVE EXTREMITY EXAM: 1+ pitting edema bilaterally OTHER: Bilateral lower extremity, shins, macular, pinpoint, pruritic, nonblanching rash Neuro: COMMON NORMALS: patient oriented x3, CN's II-XII intact bilaterally, moves all extremities and no focal motor deficits Psych: COMMON NORMALS: mental status grossly normal, Normal thought process present and cooperative THOUGHT PROCESS: Normal thought process present Discharge Data Data Completed and Pending: Completed Studies During Hospitalization Category Date Time Status CT angio chest PE protcl [id number] Stat Cat Scan 01/22/21 14:44 Completed XR chest 1V [place] ble [id number] Routine Exams 01/24/21 07:00 Completed XR chest 1V [place] ble [id number] Stat Exams 01/22/21 11:05 Completed CV. echo complete * [id number] Routine Ultrasound 01/23/21 15:54 Completed Pending at discharge Category Date Time Status Blood Culture Sta t Lab 01/22/21 13:50 Results Prothrombin Time INR AM LABS Lab 01/27/21 04:00 Ordered Prothrombin Time INR AM LABS Lab 01/28/21 04:00 Ordered Prothrombin Time INR AM LABS Lab 01/29/21 04:00 Ordered Labs from last 24 hours 01/26/21 01/26/21 01/26/21 12:00 06:36 04:55 WBC RBC Hgb Hct MCV MCH MCHC RDW Plt Count MPV Neut % (Auto) Lymph % (Auto) [place] % (Auto) Eos % (Auto) Baso % (Auto) Neut # (Auto) Lymph # (Auto) [place] # (Auto) Eos # (Auto) Baso # (Auto) Nucleated RBC % (a uto) Nucleated RBCs # PT 29.00 H INR 2.68 H Sodium Potassium Chloride Carbon Dioxide Anion Gap BUN Creatinine GFR Calculation Glucose POC Glucose 128 H 146 H Calculated Osmolal ity Calcium Phosphorus Magnesium Total Bilirubin AST ALT Alkaline Phosphata se C-Reactive Protein NT-Pro-B Natriuret Pep Total Protein Albumin Globulin Procalcitonin 01/26/21 01/26/21 01/25/21 04:55 04:55 17:18 WBC 4.8 RBC 5.17 Hgb 14.1 Hct 45.7 MCV 88.4 MCH 27.3 L MCHC 30.9 RDW 13.7 Plt Count 247 MPV 10.4 Neut % (Auto) 63.4 Lymph % (Auto) 24.5 [place] % (Auto) 11.5 Eos % (Auto) 0.0 Baso % (Auto) 0.2 Neut # (Auto) 3.02 Lymph # (Auto) 1.2 [place] # (Auto) 0.6 Eos # (Auto) 0.0 Baso # (Auto) 0.0 Nucleated RBC % (a uto) 0 Nucleated RBCs # 0.0 PT INR Sodium 141 Potassium 4.5 Chloride 100 Carbon Dioxide 31 H Anion Gap 14.5 BUN 15 Creatinine 0.4 L GFR Calculation 162.3 H Glucose 177 H POC Glucose 266 H Calculated Osmolal ity 297 H Calcium 8.2 L Phosphorus 3.5 Magnesium 2.1 Total Bilirubin 0.3 AST 39 H ALT 44 H Alkaline Phosphata se 59 C-Reactive Protein 11.8 H NT-Pro-B Natriuret Pep 1487 H Total Protein 6.1 L Albumin 3.3 L Globulin 2.8 Procalcitonin 0.08 Vitals: Last Vital Signs Temp 96.8 F L 01/26/21 12:00 Pulse 97 01/26/21 12:00 Resp 20 H 01/26/21 12:00 BP 127/89 01/26/21 12:00 Pulse Ox 92 01/26/21 12:00 Discharge Plan Discharge Patient Disposition: Home Condition: Stable Prescriptions: New Advair Diskus 250-50 mcg/dose Blister With Device 1 puff inhalation BID.RESPIRATORY Qty: 1 RF: 0 zinc gluconate 50 mg Tablet 50 mg PO DAILY Qty: 14 RF: 0 Decadron 6 mg tablet 6 mg PO DAILY Qty: 5 RF: 0 DILT-XR 180 mg Capsule,Ext.Rel 24h Degradable 180 mg PO DAILY Qty: 30 RF: 0 Continued fenofibrate nanocrystallized 145 mg tablet 145 mg PO QAM RF: 0 omega-3 fatty acids [Fish Oil Concentrate] 1,000 mg capsule 1,000 mg PO BID RF: 0 sotalol 120 mg tablet 120 mg PO BID Qty: 180 RF: 3 Euthyrox 150 mcg tablet 150 mcg PO QAM RF: 0 metformin 750 mg tablet extended release 24 hr 750 mg PO BID RF: 0 potassium chloride 10 mEq tablet extended release 10 meq PO QAM RF: 0 clopidogrel 75 mg tablet 75 mg PO QAM RF: 0 warfarin 4 mg tablet 4 mg PO BEDTIME RF: 0 furosemide 20 mg tablet 20 mg PO QAM RF: 0 clobetasol 0.05 % ointment 1 applic TOPICAL BID PRN (Reason: unknown) RF: 0 Discontinued doxycycline hyclate 100 mg Tablet 100 mg PO QAM RF: 0 warfarin 5 mg tablet 5 mg PO BEDTIME RF: 0 Discharge Orders: Discharge Order (Routine); Ordered 01/27/21 Ordered By: Ann-Marie Pedro Other Ambulatory Orders: DME: Oxygen (Order) Location: None Selected Ordered By: Ann-Marie Pedro Referrals: Yulia Hunter FNP [Primary Care Provider] - 02/01/21 9:30 am (You have a hospital followup with NAILA Ford at [facility] on February 01 at 9:30am) Kash Cunningham MD [Physician] - 4-7 days (D/w patient ) Gio Zuleta MD [Physician] - 1 week ([facility] will contact you to schedule an follow-up appointment in 1 week. If you haven't heard from them by Friday. Please call ) Discharge Diet: Cardiac Discharge Activity: Increase activity as tolerated Patient Instructions: Corticosteroids (By mouth), Diltiazem (By mouth), Multivitamins with Minerals (By mouth), Fluticasone/Salmeterol (By breathing), Heart Failure (DC), CHF Stoplight Activity Restrictions/Additional Instructions: BP / HR monitoring discussed with patient given new medication. Discharge Attestations Time Spent in Discharge Care*: greater than 30 min Specific Discharge Activities: educating patient, educating and/or supporting family/caregiver, discussing with pcp/other providers, discussing with patient case manager/social workers/dc planners, documenting/other paperwork and evaluating patient/reviewing data Status at Discharge: Cognitive status at discharge: cognitively intact , Behavioral status at discharge: cooperative , Functional status at discharge: independent ambulation Overall status at discharge: patient is progressing back to baseline Quality Metrics Clinical Quality Measures During this hospital stay, did patient experience: None Coding Level of Care Code Acute Chg FW DC note Diagnoses Acute respiratory failure with hypoxia J96.01 COVID-19 U07.1 Atrial fibrillation with RVR I48.91 Chronic anticoagulation Z79.01 Essential hypertension I10 Dyslipidemia E78.5 ASHD (arteriosclerotic heart disease) I25.10 Mitral valve regurgitation I34.0 Tricuspid valve regurgitation I07.1 Pulmonary hypertension I27.20 Diastolic CHF I50.30
[2021-01-26] MEDS: warfarin 3 mg Tablet 9 MG PO (15:01)
[2021-01-26] MEDS: azithromycin 500 MG in sodium chloride 0.9% 250 ML 250 MG IV (15:02)
[2021-01-26] MEDS: LORazepam 0.5 mg Tablet 0.25 MG PO (15:30)
[2021-01-26] MEDS: cefTRIAXone 1,000 MG in sodium chloride 0.9% (plus) 50 ML 100 MG IV (16:20)
--- NOTE | 2021-01-26 16:32 | PC.NURSE ---
meds to bed new Rx called in to [facility] per pt.
[2021-01-26 17:02] LABS: Glucose Point of Care 232 mg/dL (70-110)
[2021-01-26] MEDS: remdesivir 100 MG in sodium chloride 0.9% (100 ml) 100 ML IV (17:20)
--- NOTE | 2021-01-26 18:00 | PC.NURSE ---
Difficulty swallowing Pt stated she can't swallow her pills all together. She had difficulty swallowing her big pills such as ascorbic acid. She tried again and could not take it. Asked pt if she would like me to crush the pill and put in apple sauce, she agreed to it. Informed Dr. crow on pt's trouble swallowing. Per Dr. crow he will cancel the discharge order and will put swallow eval tomorrow. Informed pt that we cancel her discharge. pt stated she wants to go home but what is the doctor decision she will stay and get the test done. Informed Dr. crow.
--- NOTE | 2021-01-26 18:30 | PC.NURSE ---
Addendum entered by Neetu Jain RN 01/26/21 20:55: new meds stored in [facility] med room. Original Note: Meds to bed delivered however, discharge order has been canceled by
[2021-01-26 20:26] LABS: Glucose Point of Care 332 mg/dL (70-110)
[2021-01-26] MEDS: diphenhydrAMINE 50 mg Capsule PO ×2 (21:01)
[2021-01-27] VITALS (7 sets, daily range): BP systolic 122–147; BP diastolic 74–106; PULSE 78–111; RESP 17–22; TEMP 36.5–36.9; O2SAT 88–97
[2021-01-27] MEDS: clopidogrel 75 mg Tablet PO (05:09)
[2021-01-27] MEDS: levothyroxine 150 mcg Tablet PO (05:09)
[2021-01-27] MEDS: fenofibrate 145 mg Tablet PO (05:09)
--- NOTE | 2021-01-27 05:15 | PC.NURSE ---
Patient swallowed pills well taking them one at a time with water.
[2021-01-27 05:22] LABS: INR 3.34 (0.8-1.2)
[2021-01-27 06:39] LABS: Glucose Point of Care 188 mg/dL (70-110)
[2021-01-27] MEDS: dexamethasone 4 mg Tablet 6 MG PO (07:41)
[2021-01-27] MEDS: famotidine 20 mg Tablet PO (07:42)
[2021-01-27] MEDS: sotalol 80 mg Tablet 120 MG PO (07:42)
[2021-01-27] MEDS: cholecalciferol (vitamin D3) 1,000 unit Tablet 1000 UNIT PO (07:43)
[2021-01-27] MEDS: zinc gluconate 50 mg Tablet PO (07:43)
[2021-01-27] MEDS: ascorbic acid 500 mg Tablet PO (07:43)
[2021-01-27] MEDS: dilTIAZem ER (24HR) 180 mg Capsule PO (07:43)
--- NOTE | 2021-01-27 08:01 | PC.NURSE ---
Bedside report received from Sapna KATZ. Patient is sitting up in chair, A & O. Patient has no C/O of pain. She is unhappy that her breakfast took so long to receive and she did not get the milk she requested. Correct Milk was given to patient. Patient has concerns that she would have trouble swallowing the Vitamin C tab. Pill was divided into small pieces and administered with applesauce. Patient has no other requests at this time.
[2021-01-27 11:39] LABS: Glucose Point of Care 415 mg/dL (70-110)
[2021-01-27] MEDS: azithromycin 500 MG in sodium chloride 0.9% 250 ML 250 MG IV (11:52)
--- NOTE | 2021-01-27 16:41 | PC.NURSE ---
Discharge instruction explained to patient. Patient verbalized understanding. Patient A & O, no C/O of pain or other needs voiced at this time. Patient taken via wheelchair to significant other in the parking lot.
== END 2021-01-27 16:39 | disposition home or self-care (01) | DRG 177 ==
LOC: ER 13:53 → CSU 14:25
PROVIDERS: Admitting Provider Family Medicine; Emergency Provider Emergency Medicine; PCP Nurse Practitioner Family; Visit Provider Hospitalist
DX: U07.1 COVID-19 (principal); J12.82 Pneumonia due to coronavirus disease 2019; I50.33 Acute on chronic diastolic (congestive) heart failure; J96.01 Acute respiratory failure with hypoxia; I11.0 Hypertensive heart disease with heart failure; I48.91 Unspecified atrial fibrillation; Z95.1 Presence of aortocoronary bypass graft; Z95.5 Presence of coronary angioplasty implant and graft; I25.10 Atherosclerotic heart disease of native coronary artery without angina pectoris; E11.9 Type 2 diabetes mellitus without complications; Z86.718 Personal history of other venous thrombosis and embolism; E78.5 Hyperlipidemia, unspecified; I08.1 Rheumatic disorders of both mitral and tricuspid valves; I27.20 Pulmonary hypertension, unspecified; R13.10 Dysphagia, unspecified; Z79.84 Long term (current) use of oral hypoglycemic drugs; Z79.02 Long term (current) use of antithrombotics/antiplatelets; Z79.01 Long term (current) use of anticoagulants
CPT/HCPCS: 36415; 36416; 71045; 71275; 80053; 80061; 81001; 82962; 83036; 83735; 83880; 84100; 84145; 84443; 84484; 85025; 85610; 85730; 86140; 86403; 87040; 87070; 87205; 87426; 92610; 93005; 93306; 94640; 94664; 96365; 96367; 96372; 96375; 97161; 97165; 99285; J0456; J0696; J1100; J1815; J3490; J7050; J8540; Q0163; Q9967

== ENCOUNTER 2021-02-08 11:31 | Inpatient (IN) | payer OTHER, SELFPAY ==
[2021-02-08] VITALS (15 sets, daily range): BP systolic 89–132; BP diastolic 55–85; PULSE 68–125; RESP 16–36; TEMP 36.5; O2SAT 90–99; BMI 38.6
--- NOTE | 2021-02-08 12:05 | ED_ITS ---
HPI - Extremity Problem General: Chief complaint: Extremity Problem,Nontraumatic Stated complaint: BRUISING TO LEG Time Seen by Provider: 02/08/21 11:37 Source: patient Mode of arrival: EMS Limitations: no limitations History of Present Illness: HPI Narrative: This is a 60 year old female with a history of CAD, DVT, who is on warfarin anticoagulation presents to the ED with complaints of left thigh pain posteriorly. The patient states that her boyfriend noticed a swelling on her posterior left thigh last night and it got significantly worse today. She is in severe pain, described as a 9/10. She takes 9 mg of warfarin every night. She denies any trauma or falls. Complaint: extremity pain and extremity swelling Onset (ago): day(s) (1) Pain Consistency: constant Location: left and lower extremity (posterior thigh) Severity scale (1-10): 9 Quality: stabbing Radiation: none Relieving factors: nothing Exacerbating factors: palpation Associated symptoms: Deny arthralgias, chest pain, fever(s) or short of breath Review of Systems General: Reports: 10 or more systems reviewed and unremarkable except in HPI and below Const: Denies: fever(s) Card: Denies: chest pain PFS ED PFSH: Medical History (Updated 02/09/21 @ 12:32 by Manish Medina MD, [facility] [place]) ASHD (arteriosclerotic heart disease) Atrial fibrillation CHF (congestive heart failure) Dyslipidemia Essential hypertension Hx of deep venous thrombosis Tricuspid incompetence Type 2 diabetes mellitus Surgical History History of coronary artery bypass graft 2004 History of coronary artery stent placement History of total vaginal hysterectomy History of tubal ligation Status post colonoscopy Family History Other CAD (coronary artery disease) Diabetes Hypertension Social History Smoking and tobacco status: never smoked Alcohol intake: current Alcohol intake frequency: holidays/special occasions only Household members: significant other Marital status: Single History of recent travel: No Physical Exam Const: COMMON NORMALS: no acute distress, average body habitus, patient oriented x3, no limitations, healthy appearing, alert and well nourished HENMT: COMMON NORMALS: normocephalic, atraumatic and moist oral mucous membranes HEAD & SCALP: normocephalic and atraumatic Eye: COMMON NORMALS: Equal, round and reactive pupils present, EOMs intact bilaterally, conjunctivae normal and no scleral icterus CONJUNCTIVA: Yes conjunctivae normal PUPIL: Yes Equal, round and reactive pupils present Neck/C-Spine: COMMON NORMALS: no meningeal signs and no JVD Resp: COMMON NORMALS: normal respiratory effort, No retractions, No use of accessory muscles, clear to auscultation bilaterally and percussion normal AUSCULTATION: clear to auscultation bilaterally PERCUSSION: percussion normal Cardio: COMMON NORMALS: no JVD, regular rate, regular rhythm, S1 normal heart sound present, S2 normal heart sound present, No gallops present (Cardio), No clicks present (Cardio), No murmurs present (Cardio), No rub (Cardio) and Peripheral pulses 2+ throughout RATE: regular rate RHYTHM: regular rhythm HEART SOUNDS: S1 normal heart sound present and S2 normal heart sound present PERIPHERAL PULSES: Peripheral pulses 2+ throughout GI: COMMON NORMALS: Normal to inspection, nondistended, normoactive bowel sounds present, Soft to palpation, non-tender, No hepatosplenomegaly present, no masses and no bruits PALPATION: Yes Soft to palpation and Yes No hepatosplenomegaly present RECTAL EXAM: visual inspection normal, sphincter tone normal, stool normal, heme positive stool, No External hemorrhoid(s) present and No Internal hemorrhoid(s) present Extremity: COMMON NORMALS: normal to inspection, full ROM, capillary refill normal, no calf tenderness and no pedal edema LEFT LOWER EXTREMITY: Yes upper leg OTHER: Large ecchymotic area on the distal half of her posterior left t high with marked induration and tenderness. No erythema. Neuro: COMMON NORMALS: patient oriented x3 SENSORIUM/ORIENTATION: Yes alert MENINGEAL SIGNS: Yes no meningeal signs Skin: COMMON NORMALS: no rashes or lesions noted, no wounds, turgor normal, no jaundice, no petechiae and no mottling GENERAL SKIN EXAM: no rashes or lesions noted and turgor normal Course Consultations: Consultation #1: Discussed the patient with Dr. Richardson, hospitalist and he kindly accepted the patient to his service. Time: 14:11 Vital Signs: Vital signs: Vital Signs Temperature 97.6 F 02/09/21 08:00 Pulse Rate 130 H 02/09/21 08:00 Respiratory Rate 20 H 02/09/21 08:00 Blood Pressure 119/94 02/09/21 08:00 Pulse Oximetry 95 02/09/21 08:00 MDM - Extremity (Nontraumatic) MDM Narrative: Medical decision making narrative: 60-year-old female patient who is on warfarin anticoagulation for DVT. She presents to the emergency department with a pretty large hematoma on her left posterior thigh with associated severe thigh pain. CT scan confirms a hematoma in the muscle and she has a pretty significant drop of her hemoglobin in a few weeks. Rectal examination also showed heme positive stool. She was supratherapeutic on her INR and I believe this is responsible for the bleeding. Because of the significant drop in her hemoglobin as well as the fact that she was hypotensive on arrival she has been admitted for monitoring of her hemoglobin and the size of the hematoma. She was given vitamin K in the emergency department to reverse warfarin and was given fluid resuscitation. Medical Records: Attestation: I reviewed the patient's medical records. Lab Data: Attestation: I reviewed the patient's lab results. Labs: Lab Results 02/08/21 02/08/21 02/08/21 Range/Units 12:19 12:19 12:19 WBC 17.5 H (4.0-10.0) 10^3/ uL RBC 3.42 L (4.1-5.3) 10^6/u L Hgb 9.6 L (11.5-15.3) g/dL Hct 30.2 L (37.0-47.0) % MCV 88.3 (81-99) fL MCH 28.1 (28.0-34.0) pg MCHC 31.8 (30.0-36.0) g/dL RDW 14.1 (12.1-15.1) % Plt Count 255 (130-400) 10^3/c mm MPV 11.2 H (7.4-10.4) fL Neut % (Auto) 71.4 % Lymph % (Auto) 16.8 % Ward % (Auto) 9.6 % Eos % (Auto) 1.1 % Baso % (Auto) 0.2 % Neut # (Auto) 12.50 H (1.8-7.7) 10^3/u L Lymph # (Auto) 2.9 (0.8-4.8) 10^3/u L Ward # (Auto) 1.7 H (0.2-0.9) 10^3/u L Eos # (Auto) 0.2 (0.0-0.8) 10^3/u L Baso # (Auto) 0.0 (0.0-0.1) 10^3/u L Nucleated RBC % (a uto) 0 % Nucleated RBCs # 0.0 /100WBC PT 48.90 H (12.1-14.9) SECO NDS INR 5.27 H* (0.8-1.2) Sodium (136-145) mmol/L Potassium (3.5-5.1) mmol/L Chloride (98-107) mmol/L Carbon Dioxide (22-29) mmol/L Anion Gap (5-19) BUN (8-23) mg/dL Creatinine (0.5-0.9) mg/dL GFR Calculation (90-130) mL/min Glucose (65-115) mg/dL Calculated Osmolal ity (285-295) mOsm/k g Calcium (8.5-10.5) mg/dL Total Bilirubin (0.15-1.2) mg/dL AST (0-32) U/L ALT (0-33) U/L Alkaline Phosphata se (35-105) IU/L C-Reactive Protein (0.0-4.9) mg/L Total Protein (6.6-8.7) g/dL Albumin (3.5-5.2) g/dL Globulin (1.3-4.6) g/dL Blood Type AB Positive Rho(D) Type Positive / 4+ Antibody Screen Negative Crossmatch See Detail 02/08/21 Range/Units 12:19 WBC (4.0-10.0) 10^3/ uL RBC (4.1-5.3) 10^6/u L Hgb (11.5-15.3) g/dL Hct (37.0-47.0) % MCV (81-99) fL MCH (28.0-34.0) pg MCHC (30.0-36.0) g/dL RDW (12.1-15.1) % Plt Count (130-400) 10^3/c mm MPV (7.4-10.4) fL Neut % (Auto) % Lymph % (Auto) % Ward % (Auto) % Eos % (Auto) % Baso % (Auto) % Neut # (Auto) (1.8-7.7) 10^3/u L Lymph # (Auto) (0.8-4.8) 10^3/u L Ward # (Auto) (0.2-0.9) 10^3/u L Eos # (Auto) (0.0-0.8) 10^3/u L Baso # (Auto) (0.0-0.1) 10^3/u L Nucleated RBC % (a uto) % Nucleated RBCs # /100WBC PT (12.1-14.9) SECO NDS INR (0.8-1.2) Sodium 137 (136-145) mmol/L Potassium 3.7 (3.5-5.1) mmol/L Chloride 97 L (98-107) mmol/L Carbon Dioxide 28 (22-29) mmol/L Anion Gap 15.7 (5-19) BUN 25 H (8-23) mg/dL Creatinine 0.5 (0.5-0.9) mg/dL GFR Calculation 125.4 (90-130) mL/min Glucose 181 H (65-115) mg/dL Calculated Osmolal ity 293 (285-295) mOsm/k g Calcium 7.6 L (8.5-10.5) mg/dL Total Bilirubin 0.6 (0.15-1.2) mg/dL AST 30 (0-32) U/L ALT 63 H (0-33) U/L Alkaline Phosphata se 41 (35-105) IU/L C-Reactive Protein 41.9 H (0.0-4.9) mg/L Total Protein 5.0 L (6.6-8.7) g/dL Albumin 3.2 L (3.5-5.2) g/dL Globulin 1.8 (1.3-4.6) g/dL Blood Type Rho(D) Type Antibody Screen Crossmatch Imaging Data^: Other CT: Attestation: I personally reviewed and interpreted this imaging study as follows: Radiologist's impression: [address], [place] [address]SN Scan ReportSigned Patient: Ivette Wheeler #: [id number]: [id number]#:[id number]/Sex: 60 / FADM Date: 02/08/21Loc: ERRoom/Bed:Attending Dr: Ordering Provider/Ordering MD: Manish Medina MD, [facility] [place] Date of Service: 02/08/21 Procedure(s): CT femur LT w con [id number] Accession Number(s): [id number] Report Number: [id number] WS: [id number] NONCONTRAST CT OF THE LEFT FEMUR TECHNIQUE: Noncontrast CT left femur with coronal and sagittal reformatted images. CLINICAL INFORMATION: large hematoma to posterior thigh, on warfarin COMPARISON: None. DLP: 1161.[address] scans at [facility] use at least one of these dose optimization techniques: automated exposure control; mA and/or kV adjustment per patient size (includes targeted exams where dose is matched to clinical indication); or iterative reconstruction. FINDINGS: Moderate degenerative arthritis left hip with joint space narrowing. Normal femoral neck. Normal femoral shaft. No acute fractures. Degenerative arthritis left knee. Diffuse subcutaneous edema involving the thigh and proximal lower leg. No drainable fluid collections. Heterogeneous intramuscular acute hematoma involving the posterior thigh musculature. This measures approximately 8.6 x 5.2 x 15.7 cm AP by transverse by craniocaudal. Left pubic rami and acetabulum are normal. CT/CT femur LT w con [id number] IMPRESSION: 1. Intramuscular left posterior thigh mixed attenuation acute appearing hematoma measuring 8.6 x 5.2 x 15.7 cm AP by transverse by craniocaudal. 2. Diffuse edema left thigh and proximal lower leg. 3. No acute fractures. Dictated By:Dennys Stallings MDSigned By:Dennys Stallings MDSigned Date/Time:02/08/21 1338DD/ 133 Discharge Plan Discharge Patient Disposition: Admitted As Inpatient Admit Provider: Douglas Richardson Clinical Impression: Hematoma of thigh, Acute blood loss anemia, Supratherapeutic INR, Heme + stool Condition: Stable Coding Level of Care Code ED Echo Technician for Chg Fwd Exam Comprehensive
--- NOTE | 2021-02-08 12:15 | CT_ITS ---
WS: [id number] NONCONTRAST CT OF THE LEFT FEMUR TECHNIQUE: Noncontrast CT left femur with coronal and sagittal reformatted images. CLINICAL INFORMATION: large hematoma to posterior thigh, on warfarin COMPARISON: None. DLP: 1161.[address] scans at [facility] use at least one of these dose optimization techniques: automat ed exposure control; mA and/or kV adjustment per patient size (includes targeted exams where dose is matched to clinical indication); or iterative reconstruction. FINDINGS: Moderate degenerative arthritis left hip with joint space narrowing. Normal femoral neck. Normal femo ral shaft. No acute fractures. Degenerative arthritis left knee. Diffuse subcutaneous edema involving the thigh and proximal lower leg. No drainable fluid collections . Heterogeneous intramuscular acute hematoma involving the posterior thigh musculature. This measures approximately 8.6 x 5.2 x 15.7 cm AP by transverse by craniocaudal. Left pubic rami and acetabulum a re normal. CT/CT femur LT w con [id number] IMPRESSION: 1. Intramuscular left posterior thigh mixed attenuation acute appearing hemato ma measuring 8.6 x 5.2 x 15.7 cm AP by transverse by craniocaudal. 2. Diffuse edema left thigh and proximal lower leg. 3. No acute fractures.
[2021-02-08 12:29] LABS: Basophils % 0.2 %; Eosinophils # 0.2 10^3/uL (0.0-0.8); Eosinophils % 1.1 %; Hematocrit 30.2 % (37.0-47.0); Hemoglobin 9.6 g/dL (11.5-15.3); Lymphocytes # 2.9 10^3/uL (0.8-4.8); Lymphocytes % 16.8 %; Mean Corpuscular HGB Conc 31.8 g/dL (30.0-36.0); Mean Corpuscular Hemoglobin 28.1 pg (28.0-34.0); Mean Corpuscular Volume 88.3 fL (81-99); Mean Platelet Volume 11.2 fL (7.4-10.4); Monocytes # 1.7 10^3/uL (0.2-0.9); Monocytes % 9.6 %; Neutrophils % 71.4 %; Nucleated Red Blood Cells % 0 %; Platelet Count 255 10^3/cmm (130-400); Red Blood Count 3.42 10^6/uL (4.1-5.3); Red Cell Distribution Width 14.1 % (12.1-15.1); White Blood Count 17.5 10^3/uL (4.0-10.0)
[2021-02-08 12:53] LABS: Alanine Aminotransferase 63 U/L (0-33); Albumin Level 3.2 g/dL (3.5-5.2); Alkaline Phosphatase 41 IU/L (35-105); Aspartate Amino Transferase 30 U/L (0-32); Blood Urea Nitrogen 25 mg/dL (8-23); C Reactive Protein 41.9 mg/L (0.0-4.9); Calcium 7.6 mg/dL (8.5-10.5); Carbon Dioxide 28 mmol/L (22-29); Chloride 97 mmol/L (98-107); Globulin 1.8 g/dL (1.3-4.6); Glomerular Filtration Rate 125.4 mL/min (90-130); Glucose 181 mg/dL (65-115); Osmolality Calculated 293 mOsm/kg (285-295); Sodium 137 mmol/L (136-145); Total Bilirubin 0.6 mg/dL (0.15-1.2)
[2021-02-08 12:56] LABS: Anion Gap 15.7 (5-19); Potassium 3.7 mmol/L (3.5-5.1)
[2021-02-08 13:09] LABS: INR 5.27 (0.8-1.2)
[2021-02-08] MEDS: iohexol 300 mg/mL 100 mL Btl IV (13:19)
[2021-02-08] MEDS: phytonadione (ADULT) 10 MG in sodium chloride 0.9% 50 ML 153 MG IV (13:45)
[2021-02-08] MEDS: sodium chloride 0.9% 1,000 ML 999 ML IV (13:49)
--- NOTE | 2021-02-08 17:52 | PM.HP ---
Providers/Chief Complaint Admitting Physician: Douglas Richardson Primary Care Provider: Yulia Hunter Chief Complaint: BRUISING TO LEG History of Present Illness 60-year-old lady with history of VTE after cardiac surgery, history of A. fib with RVR, on chronic anticoagulation with warfarin, history of CHF, HLD, HTN, DM 2, CAD, history of CABG in 2004, coronary angiography with stenting of RCA with G[facility] on February 29, 2020, recently admitted for COVID-19 pneumonia, discharged with oxygen, has since been taken off isolation, has not been very active at home due to finding of mold in the ceiling, for which her home has been undergoing repairs. She states she has weaned herself off oxygen at home, and has otherwise been able to get around on her own. Due to limited space she is spent quite a bit of time in an office chair. Yesterday she had also fell down from the chair after several days of having pain in her left thigh, swelling, difficulty getting up and down due to the pain. She had slid down on the pillow to the floor, did not hurt herself but required assistance to get back up into the chair. In ER she is noted to have significant swelling, bruising of the posterior aspect of the left thigh, with finding of 8.5 x 5.2 x 15.7 cm posterior thigh intramuscular hematoma. Diffuse edema of the left thigh and proximal leg. No acute fractures. Her INR is noted supratherapeutic at 5.27. She received a dose of IV vitamin K in ER. Per report later from ER physician it also comes to light that she had had an episode of melenic stool day before yesterday which she seems forgot to mention. This has since resolved, but Hemoccult done in ER tested positive. Her hemoglobin in ER is noted 9.6 which is a decrease from 14.1 last assessed on 01/26/2021. In ER blood pressure initially low, She has been stressed recently not only by the need for interventions at home, also her significant other having to have a stress test, expensive breakdown of the pickup truck at home which they had to scrap. She had also suffered loss of her son in August who committed suicide. She states she has started seeing a counselor for therapy which has been working well and she has been dealing. Review of Systems Const: Reports: other (Generally weak last few days); Denies: fever(s), chills, body aches or malaise Eyes: Denies: change in vision or eye redness ENMT: Denies: throat pain, oral sores or ear or mastoid pain Card: Denies: chest pain, edema, pre-syncope or dyspnea on exertion Resp: Denies: dyspnea, productive cough, change in phlegm color or hemoptysis GI: Reports: melena (one episode reported); Denies: abdominal pain, nausea, vomiting, diarrhea (soft stools), constipation or hematochezia : Denies: flank pain, urinary frequency or hematuria Musc: Reports: extremity pain (L thigh); Denies: back pain, joint swelling or joint redness Skin/Breast: Denies: rash, sores or new lesions Neuro: Denies: headache(s), numbness in extremities, weakness in extremities, dizziness, confusion or seizure-like activity Endo: Denies: polyuria or polydipsia Flavio/Lymph: Reports: easy bleeding All/Imm: Denies: urticaria, throat swelling or tongue swelling Medications/Allergies Home Medications Medication Instructions Recorded Confirmed Last Taken Type fenofibrate nanocrystallized 145 145 mg PO DAILY 12/30/19 02/08/21 02/08/21 History mg tablet sotalol 120 mg tablet 120 mg PO BID #180 tab 11/14/20 02/08/21 02/08/21 Rx omega-3 fatty acids 1,000 mg 1,000 mg PO BID cap 01/12/21 02/08/21 01/22/21 06:00 History capsule clobetasol 1 applic TOPICAL BID PRN 01/22/21 02/08/21 Unknown History clopidogrel 75 mg PO DAILY 01/22/21 02/08/21 02/08/21 History furosemide 40 mg PO DAILY 01/22/21 02/08/21 02/08/21 History levothyroxine [Euthyrox] 150 mcg PO DAILY 01/22/21 02/08/21 02/08/21 History metformin 750 mg PO BID 01/22/21 02/08/21 02/08/21 History potassium chloride 20 meq PO DAILY 01/22/21 02/08/21 02/08/21 History warfarin 4 mg PO BEDTIME 01/22/21 02/08/21 02/07/21 History zinc gluconate 50 mg PO DAILY #14 tab 01/25/21 02/08/21 02/08/21 Rx dexamethasone [Decadron] 6 mg PO DAILY #5 tab 01/26/21 02/08/21 02/08/21 Rx diltiazem HCl [DILT-XR] 180 mg PO DAILY #30 cap 01/26/21 02/08/21 02/08/21 Rx amoxicillin-pot clavulanate 4 tab PO BID 02/08/21 02/08/21 02/08/21 History diphenhydramine HCl [Benadryl 25 mg PO BEDTIME 02/08/21 02/08/21 02/07/21 History Allergy] fluticasone propion-salmeterol 1 puff INHALATION BID 02/08/21 02/08/21 02/08/21 History [Advair Diskus] trazodone 50 mg PO BEDTIME 02/08/21 02/08/21 02/07/21 History warfarin 5 mg PO BEDTIME 02/08/21 02/08/21 02/07/21 History Allergies Allergy/AdvReac Type Severity Reaction Status Date / Time atorvastatin [From Lipitor] Allergy Unknown Verified 02/08/21 11:51 lisinopril Allergy Unknown Verified 02/08/21 11:51 PFSH Acute PFSH: Medical History (Updated 02/08/21 @ 18:09 by Douglas Richardson MD) ASHD (arteriosclerotic heart disease) Atrial fibrillation CHF (congestive heart failure) Dyslipidemia Essential hypertension Hx of deep venous thrombosis Tricuspid incompetence Type 2 diabetes mellitus Surgical History History of coronary artery bypass graft 2004 History of coronary artery stent placement History of total vaginal hysterectomy History of tubal ligation Status post colonoscopy Family History Other CAD (coronary artery disease) Diabetes Hypertension Social History Smoking and tobacco status: never smoked Alcohol intake: current Alcohol intake frequency: holidays/special occasions only Household members: significant other Marital status: Single History of recent travel: No Vitals/I&O/Wt Last Vital Signs Pulse 106 H 02/08/21 17:04 Resp 24 H 02/08/21 17:04 BP 106/76 02/08/21 17:04 Pulse Ox 99 02/08/21 17:04 Weight last 48 hrs Weight 102.058 kg Physical Exam Const: COMMON NORMALS: no acute distress, patient oriented x3 and alert GENERAL APPEARANCE: cooperative and anxious NUTRITIONAL APPEARANCE: obese ORIENTATION/CONSCIOUSNESS: Yes awake HENMT: COMMON NORMALS: oropharynx normal Neck/C-Spine: COMMON NORMALS: no JVD Resp: COMMON NORMALS: normal respiratory effort and clear to auscultation bilaterally AUSCULTATION: clear to auscultation bilaterally Cardio: COMMON NORMALS: no JVD, regular rhythm, S1 normal heart sound present, S2 normal heart sound present and No murmurs present (Cardio) RHYTHM: regular rhythm HEART SOUNDS: S1 normal heart sound present and S2 normal heart sound present GI: COMMON NORMALS: Normal to inspection, nondistended, normoactive bowel sounds present, Soft to palpation and non-tender PALPATION: Yes Soft to palpation Extremity: COMMON NORMALS: no joint enlargement and no pedal edema OTHER: Swelling, bruising posterior L thigh Neuro: COMMON NORMALS: patient oriented x3 and moves all extremities Skin: COMMON NORMALS: no rashes or lesions noted GENERAL SKIN EXAM: no rashes or lesions noted Data : 02/08/21 12:19 02/08/21 12:19 A&P Assessment and plan (1) Hematoma of thigh: Possibly secondary to fall yesterday, although does report some pain, swelling there days prior, started after sitting for prolonged time in an office chair with a sharp edge. Likely in the setting with supratherapeutic INR. At this time anticoagulation held. She received vitamin K IV in ER. Her stent was in February 2020. Discussed with her general ledger accountant. Okay to hold Plavix. Monitor hematoma. Blood count. At this time extremities warm, perfused, she denies any loss of sensation. No trouble moving her foot. No popliteal pulsatile mass. No fracture on CT. Status: Acute (2) Acute blood loss anemia: Ordered recheck blood counts tonight. Hold anticoagulation. Hold Plavix as above. Appears she also has had melanotic stool day before yesterday, without recurrence of gross melena, however, with Hemoccult positive in ER. Start PPI twice daily. Once stable will benefit from additional discomfort evaluation. Status: Acute (3) Atrial fibrillation: Recent atrial fibrillation with RVR. Continue sotalol. Discussed with her general ledger accountant. We will hold Cardizem at this time due to initially presenting with hypotension in ER, blood pressure 89/65. Cardiac monitoring. Consider resuming Cardizem after blood pressures remained stable. Status: Acute Qualifiers: Atrial fibrillation type: longstanding persistent Qualified Code(s): I48.11 - Longstanding persistent atrial fibrillation (4) Hx of deep venous thrombosis: Reports history of VT after cardiac surgery, but states has also VTE running in the family, with her father having a clotting disorder. Status: Acute (5) ASHD (arteriosclerotic heart disease): Status: Acute (6) Supratherapeutic INR: 5.27. Warfarin held. Will need to resume INR monitoring with cardiology office after bleeding resolves. Status: Acute Additional A&P Information Initial hypotension in ER: Blood pressure 89/65 on presentation. Responded well to 1 L fluid resuscitation. Hold diuretics for now. Hold Cardizem. Monitor blood pressures. HTN HLD DM2 Recent COVID-19: States has been taken off isolation. Weaned herself off oxygen. She has been doing well from this perspective. States that she was retested with rapid and PCR testing with both returning negative prior to discontinuation of isolation. Attestations Medical Necessity Statement*: Admission of over 2 midnights is going to be needed for assessment management of acute blood loss anemia, left thigh hematoma in setting of anticoagulation, antiplatelet medication, possible GI bleeding in a lady with history of VTE, history of CAD, stent placement a year ago, and a number of additional comorbidities and recent COVID-19 illness. Coding Level of Care Code Acute Design Editor for Chg Fwd Diagnoses Hematoma of thigh S70.10XA Acute blood loss anemia D62 Atrial fibrillation I48.11 Atrial fibrillation type: longstanding persistent Hx of deep venous thrombosis Z86.718 ASHD (arteriosclerotic heart disease) I25.10 Supratherapeutic INR R79.1
[2021-02-08 18:34] LABS: Glucose Point of Care 200 mg/dL (70-110)
[2021-02-08 18:53] LABS: Hematocrit 27.4 % (37.0-47.0); Hemoglobin 8.6 g/dL (11.5-15.3)
[2021-02-08] MEDS: pantoprazole DR 40 mg Tablet PO (18:54)
[2021-02-08] MEDS: lactated ringers 500 ML 999 ML IV (20:29)
[2021-02-08 21:06] LABS: Glucose Point of Care 162 mg/dL (70-110)
[2021-02-08] MEDS: trazodone 50 mg Tablet PO (22:20)
[2021-02-08] MEDS: acetaminophen 325 mg Tablet 650 MG PO (22:20)
[2021-02-08] MEDS: temazepam 15 mg Capsule PO (22:20)
[2021-02-09] VITALS (21 sets, daily range): BP systolic 85–123; BP diastolic 43–94; PULSE 86–130; RESP 17–37; TEMP 36.4–37.3; O2SAT 88–98
[2021-02-09] MEDS: sodium chloride 0.9% (100 ml) 100 ML 20 ML (00:10)
[2021-02-09 07:35] LABS: Glucose Point of Care 132 mg/dL (70-110)
[2021-02-09 07:37] LABS: Basophils % 0.3 %; Eosinophils # 0.1 10^3/uL (0.0-0.8); Eosinophils % 0.8 %; Hematocrit 29.7 % (37.0-47.0); Hemoglobin 9.1 g/dL (11.5-15.3); Lymphocytes # 2.2 10^3/uL (0.8-4.8); Lymphocytes % 14.2 %; Mean Corpuscular HGB Conc 30.6 g/dL (30.0-36.0); Mean Corpuscular Hemoglobin 27.6 pg (28.0-34.0); Mean Platelet Volume 10.6 fL (7.4-10.4); Monocytes # 1.4 10^3/uL (0.2-0.9); Monocytes % 9.2 %; Neutrophils # 11.44 10^3/uL (1.8-7.7); Neutrophils % 74.6 %; Nucleated Red Blood Cells % 0.1 %; Platelet Count 149 10^3/cmm (130-400); White Blood Count 15.3 10^3/uL (4.0-10.0)
[2021-02-09 07:51] LABS: INR 1.16 (0.8-1.2)
[2021-02-09] MEDS: sotalol 80 mg Tablet 120 MG PO ×2 (08:10→17:25)
[2021-02-09] MEDS: pantoprazole DR 40 mg Tablet PO ×2 (08:11→17:25)
[2021-02-09] MEDS: levothyroxine 150 mcg Tablet PO (08:11)
[2021-02-09] MEDS: fenofibrate 145 mg Tablet PO (08:11)
[2021-02-09 09:05] LABS: Alanine Aminotransferase 49 U/L (0-33); Albumin Level 2.8 g/dL (3.5-5.2); Alkaline Phosphatase 42 IU/L (35-105); Anion Gap 10.6 (5-19); Aspartate Amino Transferase 34 U/L (0-32); Blood Urea Nitrogen 12 mg/dL (8-23); Calcium 7.6 mg/dL (8.5-10.5); Carbon Dioxide 27 mmol/L (22-29); Chloride 102 mmol/L (98-107); Globulin 2.4 g/dL (1.3-4.6); Glomerular Filtration Rate 162.3 mL/min (90-130); Glucose 172 mg/dL (65-115); Osmolality Calculated 286 mOsm/kg (285-295); Potassium 3.6 mmol/L (3.5-5.1); Sodium 136 mmol/L (136-145); Total Bilirubin 0.9 mg/dL (0.15-1.2); Total Protein 5.2 g/dL (6.6-8.7)
[2021-02-09 12:41] LABS: Glucose Point of Care 176 mg/dL (70-110)
[2021-02-09 18:14] LABS: Glucose Point of Care 137 mg/dL (70-110)
--- NOTE | 2021-02-09 20:22 | P.PN_ITS ---
Subjective Subjective: Interval history: She is feeling better today. Pain in the left thigh showing improvement. She has been moving her leg. Vitals/I&O/Wt Last Vital Signs Temp 99.1 F 02/09/21 20:00 Pulse 122 H 02/09/21 20:00 Resp 37 H 02/09/21 18:00 BP 123/63 02/09/21 20:00 Pulse Ox 95 02/09/21 20:00 02/09/21 02/09/21 02/09/21 06:59 14:59 22:59 Intake Total 1292 / 2843 450 / 450 500 / 950 Output Total 300 / 950 Balance 992 / 1893 450 / 450 500 / 950 Weight last 48 hrs Weight 110.404 kg Weight 102.058 kg Physical Exam Const: COMMON NORMALS: no acute distress, patient oriented x3 and alert GENERAL APPEARANCE: cooperative and anxious NUTRITIONAL APPEARANCE: obese ORIENTATION/CONSCIOUSNESS: Yes awake HENMT: COMMON NORMALS: oropharynx normal Neck/C-Spine: COMMON NORMALS: no JVD Resp: COMMON NORMALS: normal respiratory effort and clear to auscultation bilaterally AUSCULTATION: clear to auscultation bilaterally Cardio: COMMON NORMALS: no JVD, regular rhythm, S1 normal heart sound present, S2 normal heart sound present and No murmurs present (Cardio) RHYTHM: regular rhythm HEART SOUNDS: S1 normal heart sound present and S2 normal heart sound present GI: COMMON NORMALS: Normal to inspection, nondistended, normoactive bowel sounds present, Soft to palpation and non-tender PALPATION: Yes Soft to palpation Extremity: COMMON NORMALS: no joint enlargement and no pedal edema OTHER: Swelling, bruising of most of posterior L thigh Neuro: COMMON NORMALS: patient oriented x3 and moves all extremities SENSORIUM/ORIENTATION: Yes alert Skin: COMMON NORMALS: no rashes or lesions noted GENERAL SKIN EXAM: no rashes or lesions noted Urinary Catheter Management^: Cox: Cath Placed During This Visit: yes Reason for Continuing Indwelling Catheter: Acute Urinary Retention or Obstruction Urinary Catheter Date of Insertion: 02/08/21 Urinary Catheter Time of Insertion: 19:30 Data : 02/09/21 07:22 02/09/21 08:11 A&P Assessment and plan (1) Hematoma of thigh: Last night with further decrease in hemoglobin to 8.6, feeling weak, unwell, with symptomatic anemia, was given 1 unit PBC transfusion. Today with p artial response, but already feeling better. Hemoglobin 9.1. INR has normalized. Recheck hemoglobin. Possibly secondary to fall yesterday, although does report some pain, swelling there days prior, started after sitting for prolonged time in an office chair with a sharp edge. Likely in the setting with supratherapeutic INR. At this time anticoagulation held. She received vitamin K IV in ER. Her stent was in February 2020. Discussed with her microbiology soil scientist. Okay to hold Plavix. Monitor hematoma. Blood counts. At this time extremities warm, perfused, she denies any loss of sensation. No trouble moving her foot. No popliteal pulsatile mass. No fracture on CT. Status: Acute Qualifiers: Encounter type: initial encounter Laterality: left Qualified Code(s): S70.12XA - Contusion of left thigh, initial encounter (2) Acute blood loss anemia: Recheck blood counts tonight. Hold anticoagulation. Hold Plavix as above. Appears she also has had melanotic stool day before yesterday, without recurrence of gross melena, however, with Hemoccult positive in ER. Start PPI twice daily. Once stable will benefit from additional endoscopic evaluation. Status: Acute (3) Atrial fibrillation: Recent atrial fibrillation with RVR. Continue sotalol. Discussed with her microbiology soil scientist. We will hold Cardizem at this time due to soft blood pressures. Resume once blood pressure is improved. Cardiac monitoring. Consider resuming Cardizem after blood pressures remained stable. Status: Acute Qualifiers: Atrial fibrillation type: longstanding persistent Qualified Code(s): I48.11 - Longstanding persistent atrial fibrillation (4) Hx of deep venous thrombosis: Reports history of VT after cardiac surgery, but states has also VTE running in the family, with her father having a clotting disorder. Status: Acute (5) ASHD (arteriosclerotic heart disease): Status: Acute (6) Supratherapeutic INR: INR normalized. From 5.27. Warfarin held. Hold anticoagulation due to d ecreasing globin, partial response to PRBC transfusion with symptomatic anemia. Status: Acute Additional A&P Information Sediment in Cox bag: Check UA. Initial hypotension in ER: Overall improved, but blood pressures fluctuating, still soft. Hold diuretics for now. Hold Cardizem. Monitor blood pressures. HTN HLD DM2 Recent COVID-19: States has been taken off isolation. Weaned herself off oxygen. She has been doing well from this perspective. States that she was retested with rapid and PCR testing with both returning negative prior to discontinuation of isolation. Attestations Medical Necessity Statement*: Continue admission for assessment management of acute blood loss anemia with posterior left thigh hematoma following supratherapeutic anticoagulation, with symptomatic anemia requiring transfusion, following recent COVID-19 infection. Coding Level of Care Code Acute Water Supply Technician for Pat Fwd Diagnoses Hematoma of thigh S70.12XA Encounter type: initial encounter Laterality: left Acute blood loss anemia D62 Atrial fibrillation I48.11 Atrial fibrillation type: longstanding persistent Hx of deep venous thrombosis Z86.718 ASHD (arteriosclerotic heart disease) I25.10 Supratherapeutic INR R79.1
[2021-02-09 20:49] LABS: Glucose Point of Care 209 mg/dL (70-110)
[2021-02-09] MEDS: acetaminophen 325 mg Tablet 650 MG PO (22:30)
[2021-02-09] MEDS: temazepam 15 mg Capsule PO (22:30)
[2021-02-09] MEDS: trazodone 50 mg Tablet PO (22:30)
[2021-02-10] VITALS (10 sets, daily range): BP systolic 82–120; BP diastolic 61–94; PULSE 71–122; RESP 14–22; TEMP 36.5–36.8; O2SAT 91–96
[2021-02-10 01:26] LABS: Urine Appearance Clear (CLEAR); Urine Color Yellow (Yellow); pH Urine 5 (5-7)
[2021-02-10 01:27] LABS: Add Urine Microscopic? YES; Bilirubin Urine 1+ (Negative); Blood Urine Neg (Negative); Glucose Urine UA Norm (Normal); Ketones Urine Negative (Negative); Leukocyte Esterase Urine Trace (Negative); Nitrate Urine Negative (Negative); Protein Urine Neg (Negative); Urobilinogen Urine 4 mg/dL (Negative)
[2021-02-10 01:39] LABS: Add Urine Culture? No; Bacteria Urine 1+ /hpf; Calcium Oxalate Crystals Urine 0-4 /hpf; Mucus Urine 2+ /hpf; RBC Urine 0-4 /hpf (0-2); Squamous Epithelial Cell Urine 0-4 /hpf (0-5)
[2021-02-10 05:45] LABS: Basophils % 0.2 %; Eosinophils # 0.2 10^3/uL (0.0-0.8); Eosinophils % 1.4 %; Hematocrit 28.1 % (37.0-47.0); Hemoglobin 8.9 g/dL (11.5-15.3); Lymphocytes # 3.3 10^3/uL (0.8-4.8); Lymphocytes % 20.2 %; Mean Corpuscular HGB Conc 31.7 g/dL (30.0-36.0); Mean Corpuscular Hemoglobin 28.6 pg (28.0-34.0); Mean Corpuscular Volume 90.4 fL (81-99); Mean Platelet Volume 10.4 fL (7.4-10.4); Monocytes # 1.4 10^3/uL (0.2-0.9); Monocytes % 8.4 %; Neutrophils # 11.06 10^3/uL (1.8-7.7); Neutrophils % 68.5 %; Nucleated Red Blood Cells % 0.2 %; Platelet Count 194 10^3/cmm (130-400); Red Blood Count 3.11 10^6/uL (4.1-5.3); Red Cell Distribution Width 15.7 % (12.1-15.1); White Blood Count 16.1 10^3/uL (4.0-10.0)
[2021-02-10 06:16] LABS: INR 1.15 (0.8-1.2)
[2021-02-10 06:26] LABS: Alanine Aminotransferase 42 U/L (0-33); Albumin Level 2.8 g/dL (3.5-5.2); Alkaline Phosphatase 62 IU/L (35-105); Anion Gap 12.1 (5-19); Aspartate Amino Transferase 34 U/L (0-32); Blood Urea Nitrogen 11 mg/dL (8-23); Calcium 7.9 mg/dL (8.5-10.5); Carbon Dioxide 27 mmol/L (22-29); Chloride 100 mmol/L (98-107); Globulin 2.3 g/dL (1.3-4.6); Glomerular Filtration Rate 125.4 mL/min (90-130); Glucose 123 mg/dL (65-115); Osmolality Calculated 281 mOsm/kg (285-295); Potassium 4.1 mmol/L (3.5-5.1); Sodium 135 mmol/L (136-145); Total Bilirubin 0.7 mg/dL (0.15-1.2); Total Protein 5.1 g/dL (6.6-8.7)
[2021-02-10 06:42] LABS: Glucose Point of Care 129 mg/dL (70-110)
[2021-02-10] MEDS: dilTIAZem 30 mg Tablet PO ×3 (08:38→20:17)
[2021-02-10] MEDS: sotalol 80 mg Tablet 120 MG PO ×2 (08:38→17:47)
[2021-02-10] MEDS: levothyroxine 150 mcg Tablet PO (08:38)
[2021-02-10] MEDS: pantoprazole DR 40 mg Tablet PO ×2 (08:39→17:47)
[2021-02-10] MEDS: fenofibrate 145 mg Tablet PO (08:39)
[2021-02-10] MEDS: cetylpyridinium Lozenge 1 EACH MUCOUS MEM ×2 (09:13→23:28)
[2021-02-10] MEDS: cefdinir 300 MG CAPSULE PO ×2 (09:13→17:47)
[2021-02-10 11:37] LABS: Glucose Point of Care 201 mg/dL (70-110)
[2021-02-10] MEDS: acetaminophen 325 mg Tablet 650 MG PO ×2 (13:11→23:28)
[2021-02-10 17:41] LABS: Glucose Point of Care 235 mg/dL (70-110)
--- NOTE | 2021-02-10 19:54 | PM.PN ---
Subjective Subjective: Interval history: She is feeling better and better. She feels she will be able to go home soon. Heart rate is slightly elevated in the low 100s, although better. She is not bothered by any chest pain or pressure. Denies shortness of breath. She got up and walked with physical therapy today with a walker. States she feels that at night her oxygen levels dropped down. Will request overnight pulse oximetry. She states she used to have CPAP, but has been intolerant of the mask. Cannot wear it. Vitals/I&O/Wt Last Vital Signs Temp 98.3 F 02/10/21 19:22 Pulse 102 H 02/10/21 19:30 Resp 20 H 02/10/21 19:30 BP 85/69 02/10/21 16:00 Pulse Ox 94 02/10/21 19:30 02/10/21 02/10/21 02/10/21 06:59 14:59 22:59 Intake Total 480 / 480 240 / 720 Output Total 850 / 1800 250 / 250 550 / 800 Balance -850 / -850 230 / 230 -310 / -80 Weight last 48 hrs Weight 110.404 kg Physical Exam Narrative: EXAM NARRATIVE: Significant other is at bedside. Const: COMMON NORMALS: no acute distress, patient oriented x3 and alert GENERAL APPEARANCE: cooperative and anxious NUTRITIONAL APPEARANCE: obese ORIENTATION/CONSCIOUSNESS: Yes awake HENMT: COMMON NORMALS: oropharynx normal Neck/C-Spine: COMMON NORMALS: no JVD Resp: COMMON NORMALS: normal respiratory effort and clear to auscultation bilaterally AUSCULTATION: clear to auscultation bilaterally Cardio: COMMON NORMALS: no JVD, regular rhythm, S1 normal heart sound present, S2 normal heart sound present and No murmurs present (Cardio) RHYTHM: regular rhythm HEART SOUNDS: S1 normal heart sound present and S2 normal heart sound present GI: COMMON NORMALS: Normal to inspection, nondistended, normoactive bowel sounds present, Soft to palpation and non-tender PALPATION: Yes Soft to palpation Extremity: COMMON NORMALS: no joint enlargement and no pedal edema OTHER: Swelling, bruising of most of posterior L thigh Neuro: COMMON NORMALS: patient oriented x3 and moves all extremities SENSORIUM/ORIENTATION: Yes alert Skin: COMMON NORMALS: no rashes or lesions noted GENERAL SKIN EXAM: no rashes or lesions noted Urinary Catheter Management^: Cox: Cath Placed During This Visit: yes Reason for Continuing Indwelling Catheter: Other Urinary Catheter Date of Insertion: 02/08/21 Urinary Catheter Time of Insertion: 19:30 Data : 02/10/21 05:12 02/10/21 05:12 A&P Assessment and plan (1) Hematoma of thigh: Symptoms are getting better. Swelling does not appear much more increased. Distal extremities perfused. She is walked well. Hemoglobin with slight decline to 8.9 but minimal compared to last night. We are holding anticoagulation, antiplatelets. We will recheck hemoglobin again in the morning. Tachycardia is improving. Subjectively she is feeling better, feels she can go home soon and bearing any additional unforeseen circumstances would like to be discharged tomorrow. Possibly secondary to fall day prior to admission, although does report some pain, swelling there days prior, started after sitting for prolonged time in an office chair with a sharp edge. Likely in the setting with supratherapeutic INR. At this time anticoagulation held. She received vitamin K IV in ER. Her stent was in February 2020. Discussed with her hotel valet attendant. Okay to hold Plavix. Monitor hematoma. Blood counts. No popliteal pulsatile mass on reexamination. No fracture on CT. Status: Acute Qualifiers: Encounter type: initial encounter Laterality: left Qualified Code(s): S70.12XA - Contusion of left thigh, initial encounter (2) Acute blood loss anemia: Recheck blood counts in AM. Hold anticoagulation. Hold Plavix as above. Discussed with her to hold anticoagulation for 1 week. Plavix were going to be discontinued. In several days she may cautiously try low-dose aspirin. Will need hemoglobin follow-up after discharge. We will need also to discuss arrangements for endoscopic evaluation given heme positive stool. Appears she also has had melanotic stool couple of days before admission, without recurrence of gross melena, however, with Hemoccult positive in ER. Continue PPI twice daily. Status: Acute (3) Atrial fibrillation: Recent atrial fibrillation with RVR. Improving. A. fib with RVR may be driven by her PHILIPP. She has been intolerant of CPAP. Assess overnight pulse oximetry for possible need for overnight oxygen. Cardiac monitoring. Continue sotalol. Resumed Cardizem at lower dose today 30 mg every 6 hours. Blood pressure soft but so far tolerating. Monitor blood pressures and heart rates overnight. Status: Acute Qualifiers: Atrial fibrillation type: longstanding persistent Qualified Code(s): I48.11 - Longstanding persistent atrial fibrillation (4) Hx of deep venous thrombosis: Reports history of VT after cardiac surgery, but states has also VTE running in the family, with her father having a clotting disorder. Status: Acute (5) ASHD (arteriosclerotic heart disease): Status: Acute (6) Supratherapeutic INR: INR normalized. From 5.27. Warfarin held. Hold anticoagulation due to decreasing globin, partial response to PRBC transfusion with symptomatic anemia. Status: Acute Additional A&P Information Sediment in Cox bag: UTI, cefdinir. Follow culture. Hypoxia: Minimal, at rest during today appears not necessarily needing oxygen, on 1 L, reports at night hypoxia, previously history of PHILIPP, but intolerant of CPAP. Will assess with overnight pulse oximetry as she may need oxygen at night. Initial hypotension in ER: Overall improved, but blood pressures fluctuating, still soft. Hold diuretics for now. Monitor blood pressures. Resuming Cardizem at lower dose. HTN HLD DM2 Recent COVID-19: States has been taken off isolation. Weaned herself off oxygen. She has been doing well from this perspective. States that she was retested with rapid and PCR testing with both returning negative prior to discontinuation of isolation. She is ambulated well with physical therapy but needing a walker. At home she is unable to fit with a walker through the bathroom doors. We are requesting a walker, and her will purchase her a commode. Attestations Medical Necessity Statement*: Continue admission for assessment and management of acute blood loss anemia, following left posterior thigh hematoma also with positive Hemoccult, previously on anticoagulation, antiplatelets secondary to history of DVT, history of CAD, stenting. A. fib with RVR, soft blood pressures. Needing optimization of medication. Needing assessment with overnight pulse oximetry given intolerance of CPAP, history of PHILIPP, possibly contributing to A. fib with RVR as well. Coding Level of Care Code Acute Mds Nurse for Patg Fwd Diagnoses Hematoma of thigh S70.12XA Encounter type: initial encounter Laterality: left Acute blood loss anemia D62 Atrial fibrillation I48.11 Atrial fibrillation type: longstanding persistent Hx of deep venous thrombosis Z86.718 ASHD (arteriosclerotic heart disease) I25.10 Supratherapeutic INR R79.1
[2021-02-10 20:06] LABS: Glucose Point of Care 151 mg/dL (70-110)
[2021-02-10] MEDS: temazepam 15 mg Capsule PO (20:17)
[2021-02-10] MEDS: trazodone 50 mg Tablet PO (20:17)
[2021-02-11] VITALS: BP 100/70; PULSE 93; RESP 22; TEMP 36.7; O2SAT 94
[2021-02-11] MEDS: dilTIAZem 30 mg Tablet PO ×3 (03:17→14:35)
[2021-02-11 03:41] VITALS: BP 105/67; PULSE 94; RESP 28; TEMP 36.7; O2SAT 94
[2021-02-11 06:00] VITALS: PULSE 89
[2021-02-11] MEDS: cetylpyridinium Lozenge 1 EACH MUCOUS MEM ×3 (06:31→14:35)
[2021-02-11 07:03] LABS: Glucose Point of Care 166 mg/dL (70-110)
--- NOTE | 2021-02-11 07:37 | PC.NURSE ---
NURSING NOTE: SHIFT SUMMARY: PT AWAKE ENTIRE SHIFT. AUTO TUNE UP MECHANIC LIGHT APPROXIMATELY EVERY 20 TO 30 MIN.; USUALLY IN TEARS REQUESTING SMALL THINGS SUCH HER DOOR BE OPENED; WHEN THIS NURSE OPENED HER DOOR, THE PATIENT BEGAN TO CRY AND SAY; , I CAN'T EVER HAVE MY DOOR SHUT, IT SCARES ME - WHEN THE DOOR HAD BEEN SHUT SINCE THE START OF SHIFT. PT WOULD PUT ON HER CALL LIGHT AND WHEN THE NURSE WENT INTO ROOM PT WOULD BEGIN TALKING ABOUT HER SON AND HIS INAPPROPRIATE FEELINGS FOR HER. JOSE ALFREDO WOULD REPEATEDLY MAKE COMMENTS THAT, HER MIND JUST HASN'T BEEN RIGHT AND THAT SHE JUST NEEDS THE NURSES TO LISTEN FOR AWHILE SO THAT THEY UNDERSTAND HER. PT HAD BEEN UP TO THE [facility] [place] SHIFT ON HER OWN AND THEN AT APPROXIMATELY 0430, WHEN THIS NURSE HAD A NEW PATIENT ADMISSION, THE PATIENT PUT ON HER CALLIGHT AND WHEN THIS NURSE WENT INTO THE ROOM, PATIENT STATED THAT SHE NEEDED THIS NURSE TO WIPE HER BUTT THIS ONCE BECAUSE SHE JUST COULDN'T DO IT RIGHT NOW. THIS NURSE SAID TO PATIENT, YOU HAVE BEEN WIPING YOUR OWN BUTT ALL SHIFT, YOU CAN DO IT NOW, YOUR GOING HOME TODAY AND NEED TO BE ABLE TO DO THESE THINGS YOURSELF. PT BECAME ANGRY, STOOD UP, AND SAID FINE. AND THEN PROCEEDED TO WIPE HER OWN BOTTOM AND GET BACK INTO BED. PT BEGAN TO CRY AGAIN AND STATED, I'VE BEEN THROUGH SO MUCH AND THIS COVID HAS JUST AFFECTED MY MIND AND MADE ME UNABLE TO DO THINGS. PT HAD BEEN ON A NIGHT OXIMETRY STUDY ALL NIGHT AND AT APPROXIMATELY 0615 THIS MORNING, THE OXIMETER STARTED ALARMING.THE PATIENT CALLED UP TO THE NURSE'S STATION AND THIS NURSE TOLD HER THAT RESPIRATORY WOULD BE DOWN IN A LITTLE BIT TO TAKE IT OFF, THEY WERE CURRENTLY IN ANOTHER ROOM. WITHIN 5 MINUTES, THE PATIENT PUT ON HER LIGHT AGAIN AND WAS TOLD THE SAME THING. IN ANOTHER APPROXIMATELY 5 [address], DR. ANDERS WALKED PAST PATIENT'S ROOM AND PATIENT CRIED OUT TO HIM, PLEASE SHUT THIS OFF FOR ME, I'VE TOLD THEM ABOUT THIS BEEPING AND THEY KEEP TELLING ME IT WILL BE JUST A MINUTE, I NEED HELP. (PATIENT WAS CRYING. THIS NURSE WENT DOWN AND TOLD PATIENT AGAIN THAT RESPIRATORY WAS COMING. PT BEGAN TO CRY AGAIN AND SAID THAT THE ALARM WAS MAKING HER HEAD HURT AND SHE COULDNT TAKE ANYMORE AND SOMEONE NEEDED TO HELP HER. THIS NURSE TOLD PATIENT THAT RESPIRATORY WAS ON THEIR WAY-AT THIS TIME, RESPIRATORY CAME IN. PATIENT STARTED TO CRY WHEN RT TOOK THE OXIMETER OFF AND SAID, I WANTED A PICTURE OF IT WHILE IT WAS ON TO GIVE TO MY DAUGHTER,(PT STARTED SOBBING) AND REPEATING I JUST WANTED A PICTURE, CAN'T I JUST GET A PICTURE? THIS NURSE SAID TO PATIENT THAT RT WAS NOT TRYING TO IGNORE HER THEY WERE TRYING TO GET THE OXIMETRY RESULTS TO THE DOCTOR. PT THEN STATED TO THIS NURSE, AND I JUST WANTED A PICTURE, NOT A LECTURE.
[2021-02-11 08:00] VITALS: BP 117/81; PULSE 110; RESP 18; TEMP 36.7; O2SAT 96
[2021-02-11] MEDS: levothyroxine 150 mcg Tablet PO (08:02)
[2021-02-11] MEDS: sotalol 80 mg Tablet 120 MG PO (08:02)
[2021-02-11] MEDS: pantoprazole DR 40 mg Tablet PO (08:02)
[2021-02-11] MEDS: fenofibrate 145 mg Tablet PO (08:04)
[2021-02-11] MEDS: cefdinir 300 MG CAPSULE PO (08:06)
[2021-02-11 10:08] LABS: Basophils # 0.1 10^3/uL (0.0-0.1); Basophils % 0.4 %; Eosinophils # 0.2 10^3/uL (0.0-0.8); Eosinophils % 1.5 %; Hematocrit 30.3 % (37.0-47.0); Hemoglobin 9.3 g/dL (11.5-15.3); Lymphocytes # 2.6 10^3/uL (0.8-4.8); Lymphocytes % 15.8 %; Mean Corpuscular HGB Conc 30.7 g/dL (30.0-36.0); Mean Corpuscular Hemoglobin 28.3 pg (28.0-34.0); Mean Corpuscular Volume 92.1 fL (81-99); Mean Platelet Volume 10.8 fL (7.4-10.4); Monocytes # 1.1 10^3/uL (0.2-0.9); Neutrophils # 11.98 10^3/uL (1.8-7.7); Neutrophils % 73.8 %; Nucleated Red Blood Cells # 0.1 /100WBC; Nucleated Red Blood Cells % 0.8 %; Platelet Count 293 10^3/cmm (130-400); Red Blood Count 3.29 10^6/uL (4.1-5.3); White Blood Count 16.2 10^3/uL (4.0-10.0)
[2021-02-11 10:11] VITALS: PULSE 107; RESP 18; O2SAT 92
[2021-02-11 10:35] LABS: Alanine Aminotransferase 53 U/L (0-33); Albumin Level 2.9 g/dL (3.5-5.2); Alkaline Phosphatase 61 IU/L (35-105); Anion Gap 14.3 (5-19); Aspartate Amino Transferase 54 U/L (0-32); Blood Urea Nitrogen 14 mg/dL (8-23); Calcium 7.7 mg/dL (8.5-10.5); Carbon Dioxide 23 mmol/L (22-29); Chloride 101 mmol/L (98-107); Globulin 2.9 g/dL (1.3-4.6); Glomerular Filtration Rate 125.4 mL/min (90-130); Glucose 164 mg/dL (65-115); Osmolality Calculated 282 mOsm/kg (285-295); Potassium 4.3 mmol/L (3.5-5.1); Sodium 134 mmol/L (136-145); Total Bilirubin 0.8 mg/dL (0.15-1.2); Total Protein 5.8 g/dL (6.6-8.7)
[2021-02-11 14:57] LABS: Glucose Point of Care 143 mg/dL (70-110)
[2021-02-11 14:59] VITALS: PULSE 107; RESP 18; O2SAT 92
--- NOTE | 2021-02-11 15:25 | PC.NURSE ---
discharge instructions given and explained.pt verb understanding of instructions.discharged via w/c to exit.sig.other to drive pt home.
--- NOTE | 2021-02-11 23:18 | P.DS_ITS ---
Discharge Providers Date of Admission: 02/08/21 14:26 Date of Discharge: February 11, 2021 Attending Provider at Admission: Douglas Richardson Attending Provider at Discharge: Douglas Richardson Primary Care Provider: Yulia Hunter Diagnoses at Discharge Discharge Diagnosis (1) Hematoma of thigh: Status: Acute Qualifiers: Encounter type: initial encounter Laterality: left Qualified Code(s): S70.12XA - Contusion of left thigh, initial encounter (2) Acute blood loss anemia: Status: Acute (3) Atrial fibrillation: Status: Acute Qualifiers: Atrial fibrillation type: longstanding persistent Qualified Code(s): I48.11 - Longstanding persistent atrial fibrillation (4) Hx of deep venous thrombosis: Status: Acute (5) ASHD (arteriosclerotic heart disease): Status: Acute (6) Supratherapeutic INR: Status: Acute Reason for Visit Reason for Visit: BRUISING TO LEG Hospital Course Hospital Course 60-year-old lady with history of VTE after cardiac surgery, history of A. fib with RVR, on chronic anticoagulation with warfarin, history of CHF, HLD, HTN, DM 2, CAD, history of CABG in 2004, coronary angiography with stenting of RCA with [facility] on February 29, 2020, recently admitted for COVID-19 pneumonia, discharged with oxygen, has since been taken off isolation, has not been very active at home due to finding of mold in the ceiling, for which her home has been undergoing repairs. She states she has weaned herself off oxygen at home, and has otherwise been able to get around on her own. Due to limited space she is spent quite a bit of time in an office chair. Yesterday she had also fell down from the chair after several days of having pain in her left thigh, swelling, difficulty getting up and down due to the pain. She had slid down on the pillow to the floor, did not hurt herself but required assistance to get back up into the chair. In ER she is noted to have significant swelling, bruising of the posterior aspect of the left thigh, with finding of 8.5 x 5.2 x 15.7 cm posteri or thigh intramuscular hematoma. Diffuse edema of the left thigh and proximal leg. No acute fractures. Her INR is noted supratherapeutic at 5.27. She received a dose of IV vitamin K in ER. Per report later from ER physician it also comes to light that she had had an episode of melenic stool day before yesterday which she seems forgot to mention. This has since resolved, but Hemoccult done in ER tested positive. Her hemoglobin in ER is noted 9.6 which is a decrease from 14.1 last assessed on 01/26/2021. In ER blood pressure initially low, She has been stressed recently after suicide of her son, and a number of problems at home. She states she has started seeing a counselor for therapy which has been working well and she has been dealing. Her INR had reversed with vitamin K, normalized the following morning. Hemoglobin did additionally declined to 8.6, and due to generalized weakness, symptomatic anemia, continued blood loss secondary to thigh hematoma, anticoagulation, she received 1 unit PRBC transfusion. She felt significantly better with hemoglobin with partial response, but subsequently with leveling out around 9, and today 9.3. While in the hospital she had some trouble with A. fib with RVR. Due to low blood pressure initially diltiazem had to be discontinued. She was continued on sotalol. Diltiazem was resumed at lower dose of 30 mg every 6 hours. Heart rates overall improved, stayed below 110. She was continued without anticoagulation, antiplatelet agents were held. She did not have hematochezia or frankly melanotic stools. She was maintained on PPI. She was feeling much better without further swelling of her thigh, has been able to get up and ambulate with physical therapy. Did well with a walker. Walker has been requested for January for ambulation. Her also is purchasing her a commode. She has not required any oxygen. Previously with PHILIPP, intolerant of CPAP, underwent overnight pulse oximetry and did quite well, almost entire time staying above 90%. Did not otherwise need oxygen on home O2 evaluation. We discussed with her the risks of rebleeding with resumption of anticoagulation, risks of clotting with history of DVT, as well as being off antiplatelets. Plavix were going to be discontinued by her carrier blower regardless, so we are not continuing this. Discussed with her to hold blood thinners for 7 days, subsequently resume. Discussed with her starting tomorrow she could cautiously try to resume low-dose aspirin. She is asked to follow-up with primary provider for reassessment of blood counts in 4-7 days. She is also asked to follow-up with cardiology in office regarding additional optimization of management of A. fib, CAD. She is also asked to seek additional evaluation by endoscopy once she is closer to baseline state of health given positive Hemoccult. She is continued on Protonix dose of which is increased to twice daily. She has been doing well with regards to recent COVID-19 without recurrence of symptoms. Physical Exam Narrative: EXAM NARRATIVE: Significant other is at bedside. Const: COMMON NORMALS: no acute distress, patient oriented x3 and alert GENERAL APPEARANCE: cooperative and anxious NUTRITIONAL APPEARANCE: obese ORIENTATION/CONSCIOUSNESS: Yes awake HENMT: COMMON NORMALS: oropharynx normal Neck/C-Spine: COMMON NORMALS: no JVD Resp: COMMON NORMALS: normal respiratory effort and clear to auscultation bilaterally AUSCULTATION: clear to auscultation bilaterally Cardio: COMMON NORMALS: no JVD, regular rhythm, S1 normal heart sound present, S2 normal heart sound present and No murmurs present (Cardio) RHYTHM: regular rhythm HEART SOUNDS: S1 normal heart sound present and S2 normal heart sound present GI: COMMON NORMALS: Normal to inspection, nondistended, normoactive bowel sounds present, Soft to palpation and non-tender PALPATION: Yes Soft to palpation Extremity: COMMON NORMALS: no joint enlargement and no pedal edema OTHER: Swelling, bruising of most of posterior L thigh Neuro: COMMON NORMALS: patient oriented x3 and moves all extremities SENSORIUM/ORIENTATION: Yes alert Skin: COMMON NORMALS: no rashes or lesions noted GENERAL SKIN EXAM: no rashes or lesions noted Urinary Catheter Management^: Cox: Cath Placed During This Visit: yes, but has since been removed by the nurse Reason for Continuing Indwelling Catheter: Decision to DC Catheter Urinary Catheter Date of Insertion: 02/08/21 Urinary Catheter Time of Insertion: 19:30 Date Urinary Catheter Removed: 02/11/21 Time Urinary Catheter Discontinued: 08:14 Discharge Data Data Completed and Pending: Completed Studies During Hospitalization Category Date Time Status CT femur LT w con [id number] Urgent Cat Scan 02/08/21 12:15 Completed Labs from last 24 hours 02/11/21 02/11/21 02/11/21 11:33 09:16 09:16 WBC RBC Hgb Hct MCV MCH MCHC RDW Plt Count MPV Neut % (Auto) Lymph % (Auto) Union % (Auto) Eos % (Auto) Baso % (Auto) Neut # (Auto) Lymph # (Auto) Union # (Auto) Eos # (Auto) Baso # (Auto) Nucleated RBC % (a uto) Nucleated RBCs # PT 13.50 INR 1.00 Sodium 134 L Potassium 4.3 Chloride 101 Carbon Dioxide 23 Anion Gap 14.3 BUN 14 Creatinine 0.5 GFR Calculation 125.4 Glucose 164 H POC Glucose 143 H Calculated Osmolal ity 282 L Calcium 7.7 L Total Bilirubin 0.8 AST 54 H ALT 53 H Alkaline Phosphata se 61 Total Protein 5.8 L Albumin 2.9 L Globulin 2.9 02/11/21 02/11/21 09:16 06:29 WBC 16.2 H RBC 3.29 L Hgb 9.3 L Hct 30.3 L MCV 92.1 MCH 28.3 MCHC 30.7 RDW 16.0 H Plt Count 293 MPV 10.8 H Neut % (Auto) 73.8 Lymph % (Auto) 15.8 Union % (Auto) 7.0 Eos % (Auto) 1.5 Baso % (Auto) 0.4 Neut # (Auto) 11.98 H Lymph # (Auto) 2.6 Union # (Auto) 1.1 H Eos # (Auto) 0.2 Baso # (Auto) 0.1 Nucleated RBC % (a uto) 0.8 Nucleated RBCs # 0.1 PT INR Sodium Potassium Chloride Carbon Dioxide Anion Gap BUN Creatinine GFR Calculation Glucose POC Glucose 166 H Calculated Osmolal ity Calcium Total Bilirubin AST ALT Alkaline Phosphata se Total Protein Albumin Globulin Vitals: Last Vital Signs Temp 98.0 F 02/11/21 08:00 Pulse 107 H 02/11/21 14:59 Resp 18 02/11/21 14:59 BP 117/81 02/11/21 08:00 Pulse Ox 92 02/11/21 14:59 Discharge Plan Discharge Patient Disposition: Home Condition: Stable Prescriptions: New cefdinir 300 mg Capsule 300 mg PO BID Qty: 12 RF: 0 diltiazem HCl 60 mg capsule,extended release 12 hr 60 mg PO BID Qty: 60 RF: 0 pantoprazole 40 mg Tablet,Delayed Release (Dr/Ec) 40 mg PO BID Qty: 60 RF: 0 Continued fenofibrate nanocrystallized 145 mg tablet 145 mg PO DAILY RF: 0 omega-3 fatty acids [Fish Oil Concentrate] 1,000 mg capsule 1,000 mg PO BID RF: 0 sotalol 120 mg tablet 120 mg PO BID Qty: 180 RF: 3 levothyroxine [Euthyrox] 150 mcg tablet 150 mcg PO DAILY RF: 0 metformin 750 mg tablet extended release 24 hr 750 mg PO BID RF: 0 potassium chloride 10 mEq tablet extended release 20 meq PO DAILY RF: 0 clobetasol 0.05 % ointment 1 applic TOPICAL BID PRN (Reason: unknown) RF: 0 zinc gluconate 50 mg Tablet 50 mg PO DAILY Qty: 14 RF: 0 trazodone 50 mg tablet 50 mg PO BEDTIME RF: 0 Benadryl Allergy 25 mg Tablet 25 mg PO BEDTIME RF: 0 Advair Diskus 250-50 mcg/dose blister with device 1 puff inhalation BID RF: 0 Held warfarin 4 mg tablet 4 mg PO BEDTIME RF: 0 Hold Instructions: Resume on 02/18/21. furosemide 20 mg tablet 40 mg PO DAILY RF: 0 Hold Instructions: Resume on 02/18/21. warfarin 5 mg tablet 5 mg PO BEDTIME RF: 0 Hold Instructions: Resume on 02/18/21. Discontinued clopidogrel 75 mg tablet 75 mg PO DAILY RF: 0 dexamethasone [Decadron] 6 mg tablet 6 mg PO DAILY Qty: 5 RF: 0 diltiazem HCl [DILT-XR] 180 mg Capsule,Ext.Rel 24h Degradable 180 mg PO DAILY Qty: 30 RF: 0 amoxicillin-pot clavulanate 500-125 mg tablet 4 tab PO BID RF: 0 Discharge Orders: Discharge Order (Routine); Ordered 02/11/21 Ordered By: Douglas Richardson Other Ambulatory Orders: DME: Philip (Order) Location: None Selected Ordered By: Douglas Richardson Referrals: Yulia Hunter COMMERCIAL CREDIT REVIEWER [Primary Care Provider] - 4-7 days ([facility] will conatct you to schedule an follow-up appointment in 4 to 7 days. If you haven't heard from them by Friday afternoon. Please call ) Kash Cunningham MD [Physician] - 2 weeks ([facility] will contact you to schedule an appoinmtent with Dr. Cunningham in 2 weeks. If youhaven't heard from them by Friday afternoon. Please call ) Mariana Marina FNP [Nurse Practitioner] - 1 week ([facility] will contact you to schedule an follow-up appointmnet with Mariana Camacho in 1 week. If youhaven't heard from them by Friday afternoon. Please call ) Discharge Diet: Cardiac and Diabetic Discharge Activity: Use walker/crutches as instructed Patient Instructions: Diltiazem (By mouth), Warfarin (By mouth), Cefdinir (By mouth), Pantoprazole (By mouth), Atrial Fibrillation (DC), Deep Venous Thrombosis (DC), Contusion in Adults (DC), Anemia (DC), CHF Stoplight Activity Restrictions/Additional Instructions: Please hold warfarin for 1 week, then resume. Discussed additionally with your primary doctor. Please discontinue Plavix. You can try starting low-dose aspirin 81 mg tomorrow. If you find worsening swelling of the left thigh, or start feeling very tired, weak, or experience other concerning symptoms including chest pain, fainting, etc, please seek medical attention. Please have your primary doctor recheck your blood count levels at the follow-up visit in 4-7 days to further assess for any worsening of anemia. Please monitor your blood pressures and heart rates at home. Target heart rates below 110. Continue Cardizem as long as blood pressure is okay. If blood pressures are low, less than 100 top number, or less than 50 bottom number, please hold Cardizem. Continue sotalol. Please call and make an appointment with the primary provider follow-up in 4-7 days. For Discharge Attestations Time Spent in Discharge Care*: greater than 30 min Status at Discharge: Cognitive status at discharge: cognitively intact , Behavioral status at discharge: cooperative , Quality Metrics Clinical Quality Measures During this hospital stay, did patient experience: None Coding Level of Care Code Acute Chg FW DC note Diagnoses Hematoma of thigh S70.12XA Encounter type: initial encounter Laterality: left Acute blood loss anemia D62 Atrial fibrillation I48.11 Atrial fibrillation type: longstanding persistent Hx of deep venous thrombosis Z86.718 ASHD (arteriosclerotic heart disease) I25.10 Supratherapeutic INR R79.1
== END 2021-02-11 15:27 | disposition home or self-care (01) | DRG 605 ==
LOC: ER 14:07 → CSU 14:47
PROVIDERS: Admitting Provider Internal Medicine; Emergency Provider Family Medicine; PCP Nurse Practitioner Family; Visit Provider Internal Medicine
DX: S70.12XA Contusion of left thigh, initial encounter (principal); I48.11 Longstanding persistent atrial fibrillation; D62 Acute posthemorrhagic anemia; K92.1 Melena; W18.30XA Fall on same level, unspecified, initial encounter; I11.0 Hypertensive heart disease with heart failure; I50.9 Heart failure, unspecified; E11.9 Type 2 diabetes mellitus without complications; E78.5 Hyperlipidemia, unspecified; I25.10 Atherosclerotic heart disease of native coronary artery without angina pectoris; Z95.5 Presence of coronary angioplasty implant and graft; Z95.1 Presence of aortocoronary bypass graft; Z86.16 Personal history of COVID-19; Z77.120 Contact with and (suspected) exposure to mold (toxic); Z63.4 Disappearance and death of family member; Z86.718 Personal history of other venous thrombosis and embolism; I95.9 Hypotension, unspecified; Z79.84 Long term (current) use of oral hypoglycemic drugs; R79.1 Abnormal coagulation profile
CPT/HCPCS: 36415; 36416; 36430; 51702; 73701; 80053; 81001; 82962; 85014; 85018; 85025; 85610; 86140; 86850; 86900; 86920; 94640; 94762; 96365; 96372; 97116; 97161; 97530; 99285; J1815; J3430; J7030; P9016; Q9967

== ENCOUNTER 2021-02-13 23:37 | Emergency (ER) | payer OTHER, SELFPAY ==
[2021-02-13 23:40] VITALS: BP 88/65; PULSE 72; RESP 26; TEMP 36.6; O2SAT 94; BMI 38.6
--- NOTE | 2021-02-13 23:47 | XRR_ITS ---
PROCEDURE INFORMATION: Exam: XR Chest Exam date and time: 02/13/2021 11:47 PM Age: 60 years old Clinical indication: Shortness of breath; Prior surgery; Surgery type: Triple bypass, stents; Additional info: Weakness, SOB, leg edema and bruising to left leg. TECHNIQUE: Imaging protocol: XR of the chest. Views: 1 view. COMPARISON: CR XR chest 1V portable [id number] 01/24/2021 5:50 AM FINDINGS: Lungs: Resolution of previously noted bilateral pulmonary opacities. Pleural spaces: Unremarkable. No pleural effusion. No pneumothorax. Heart/Mediastinum: Unremarkable. No cardiomegaly. Bones/joints: Stable sternotomy. XR/XR chest 1V portable [id number] IMPRESSION: Resolution of previously noted bilateral pulmonary opacities.
--- NOTE | 2021-02-13 23:47 | ECG_ITS ---
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 Measurements Intervals [place] Rate: 69 P: OK: QRS: 43 QRSD: 88 T: 115 QT: 489 QTc: 526 Interpretive Statements ATRIAL FIBRILLATION ST DEVIATION AND MODERATE T-WAVE ABNORMALITY, CONSIDER ANTERIOR ISCHEMIA [-0.1+ mV T WAVE IN V3/V4] Compared to ECG 01/26/2021 04:41:41 Possible ischemia now present T-wave abnormality still present Electronically Signed On 02-22-2021 12:36:31 CDT by Norah Talbot M.D. [id number]
--- NOTE | 2021-02-14 | ED_ITS ---
HPI - SOB/Dyspnea General: Chief Complaint: Shortness of Breath/Dyspnea Stated Complaint: LOW BLOOD PRESSURE Time Seen by Provider: 02/13/21 23:42 Source: patient and EMS Mode of arrival: EMS Limitations: no limitations History of Present Illness: HPI Narrative: 60-year-old female who was recently admitted here due to an elevated INR from anticoagulation and had a large hematoma formed in her left thigh. She did have to receive a transfusion for that. She states that she been home for 2 days. She states that today though she thinks she had overdone it. She states she was working around her house and that her air conditioners been out and got overheated at home. States tonight she just felt weak and felt like she got way too hot. She denies any shortness of breath. She denies any vomiting or diarrhea. She states that she is having low blood pressure readings at home tonight. States she had not drank much fluid today either. She denies any shortness of breath. She did have Covid earlier this month. Associated symptoms: Deny abdominal pain, chest pain, nausea or vomiting Review of Systems Const: Reports: fatigue and malaise Eyes: Denies: blurry vision or eye discomfort ENMT: Denies: throat pain or dental pain Card: Denies: chest pain Resp: Denies: dyspnea GI: Denies: abdominal pain, nausea, vomiting or diarrhea : Denies: dysuria Musc: Denies: neck pain or back pain Skin/Breast: Denies: rash Neuro: Denies: headache(s) Psych: Denies: depression Flavio/Lymph: Denies: easy bruising All/Imm: Denies: urticaria PFSH ED PFSH: Medical History ASHD (arteriosclerotic heart disease) Atrial fibrillation CHF (congestive heart failure) Dyslipidemia Essential hypertension Hx of deep venous thrombosis Tricuspid incompetence Type 2 diabetes mellitus Surgical History History of coronary artery bypass graft 2004 History of coronary artery stent placement History of total vaginal hysterectomy History of tubal ligation Status post colonoscopy Family History Other CAD (coronary artery disease) Diabetes Hypertension Social History Smoking and tobacco status: never smoked Alcohol intake: current Alcohol intake frequency: holidays/special occasions only Household members: significant other Marital status: Single History of recent travel: No Physical Exam Const: COMMON NORMALS: no acute distress, patient oriented x3 and healthy appearing HENMT: COMMON NORMALS: normocephalic and atraumatic HEAD & SCALP: normocephalic and atraumatic Eye: COMMON NORMALS: Equal, round and reactive pupils present and EOMs intact bilaterally PUPIL: Yes Equal, round and reactive pupils present Neck/C-Spine: COMMON NORMALS: full ROM and supple Chest: COMMONS NORMALS: normal inspection of the chest and normal palpation of entire chest wall Resp: COMMON NORMALS: normal respiratory effort, No retractions, No use of accessory muscles and clear to auscultation bilaterally AUSCULTATION: clear to auscultation bilaterally Cardio: COMMON NORMALS: regular rate, regular rhythm and No murmurs present (Cardio) RATE: regular rate RHYTHM: regular rhythm GI: COMMON NORMALS: Normal to inspection, nondistended, normoactive bowel sounds present, Soft to palpation, non-tender and no masses PALPATION: Yes Soft to palpation Extremity: COMMON NORMALS: full ROM NARRATIVE EXTREMITY EXAM: Large hematoma to left lower leg with bruising Neuro: COMMON NORMALS: patient oriented x3, moves all extremities and no focal motor deficits Psych: COMMON NORMALS: mental status grossly normal, Normal thought process present and cooperative THOUGHT PROCESS: Normal thought process present Skin: COMMON NORMALS: no rashes or lesions noted and no wounds GENERAL SKIN EXAM: no rashes or lesions noted Course Vital Signs: Vital signs: Vital Signs Temperature 97.8 F 02/14/21 02:47 Pulse Rate 77 02/14/21 02:47 Respiratory Rate 25 H 02/14/21 02:47 Blood Pressure 93/65 02/14/21 02:47 Pulse Oximetry 96 02/14/21 02:47 MDM - SOB/Dyspnea MDM Narrative: Medical decision making narrative: Patient presents here with weakness and heat exposure. She feels much improved after IV fluid bolus and was requesting discharge. Patient's blood work here is all stable as well. She is stable for discharge is to follow-up PCP and return if worsening. She is to void heat and drink plenty of fluids. Lab Data: Labs: Lab Results 02/14/21 02/14/21 02/14/21 Range/Units 01:10 01:10 01:10 WBC 13.8 H (4.0-10.0) 10^3/ uL RBC 3.26 L (4.1-5.3) 10^6/u L Hgb 9.1 L (11.5-15.3) g/dL Hct 30.9 L (37.0-47.0) % MCV 94.8 (81-99) fL MCH 27.9 L (28.0-34.0) pg MCHC 29.4 L (30.0-36.0) g/dL RDW 17.0 H (12.1-15.1) % Plt Count 286 (130-400) 10^3/c mm MPV 10.4 (7.4-10.4) fL Neut % (Auto) 76.1 % Lymph % (Auto) 12.9 % [place] % (Auto) 7.2 % Eos % (Auto) 0.7 % Baso % (Auto) 0.4 % Neut # (Auto) 10.48 H (1.8-7.7) 10^3/u L Lymph # (Auto) 1.8 (0.8-4.8) 10^3/u L [place] # (Auto) 1.0 H (0.2-0.9) 10^3/u L Eos # (Auto) 0.1 (0.0-0.8) 10^3/u L Baso # (Auto) 0.1 (0.0-0.1) 10^3/u L Nucleated RBC % (a uto) 3.1 % Nucleated RBCs # 0.4 /100WBC PT 14.50 (12.1-14.9) SECO NDS INR 1.10 (0.8-1.2) Sodium 134 L (136-145) mmol/L Potassium 4.9 (3.5-5.1) mmol/L Chloride 102 (98-107) mmol/L Carbon Dioxide 23 (22-29) mmol/L Anion Gap 13.9 (5-19) BUN 18 (8-23) mg/dL Creatinine 0.6 (0.5-0.9) mg/dL GFR Calculation 101.6 (90-130) mL/min Glucose 228 H (65-115) mg/dL Calculated Osmolal ity 287 (285-295) mOsm/k g Lactate (0.5-2.2) mmol/L Calcium 7.9 L (8.5-10.5) mg/dL Total Bilirubin 2.2 H (0.15-1.2) mg/dL AST 88 H (0-32) U/L ALT 110 H (0-33) U/L Alkaline Phosphata se 94 (35-105) IU/L NT-Pro-B Natriuret Pep 1307 H (0-125) pg/mL Total Protein 5.6 L (6.6-8.7) g/dL Albumin 3.0 L (3.5-5.2) g/dL Globulin 2.6 (1.3-4.6) g/dL Blood Type Rho(D) Type Antibody Screen 02/14/21 02/14/21 Range/Units 01:10 01:10 WBC (4.0-10.0) 10^3/ uL RBC (4.1-5.3) 10^6/u L Hgb (11.5-15.3) g/dL Hct (37.0-47.0) % MCV (81-99) fL MCH (28.0-34.0) pg MCHC (30.0-36.0) g/dL RDW (12.1-15.1) % Plt Count (130-400) 10^3/c mm MPV (7.4-10.4) fL Neut % (Auto) % Lymph % (Auto) % [place] % (Auto) % Eos % (Auto) % Baso % (Auto) % Neut # (Auto) (1.8-7.7) 10^3/u L Lymph # (Auto) (0.8-4.8) 10^3/u L [place] # (Auto) (0.2-0.9) 10^3/u L Eos # (Auto) (0.0-0.8) 10^3/u L Baso # (Auto) (0.0-0.1) 10^3/u L Nucleated RBC % (a uto) % Nucleated RBCs # /100WBC PT (12.1-14.9) SECO NDS INR (0.8-1.2) Sodium (136-145) mmol/L Potassium (3.5-5.1) mmol/L Chloride (98-107) mmol/L Carbon Dioxide (22-29) mmol/L Anion Gap (5-19) BUN (8-23) mg/dL Creatinine (0.5-0.9) mg/dL GFR Calculation (90-130) mL/min Glucose (65-115) mg/dL Calculated Osmolal ity (285-295) mOsm/k g Lactate 2.1 (0.5-2.2) mmol/L Calcium (8.5-10.5) mg/dL Total Bilirubin (0.15-1.2) mg/dL AST (0-32) U/L ALT (0-33) U/L Alkaline Phosphata se (35-105) IU/L NT-Pro-B Natriuret Pep (0-125) pg/mL Total Protein (6.6-8.7) g/dL Albumin (3.5-5.2) g/dL Globulin (1.3-4.6) g/dL Blood Type AB Positive Rho(D) Type Positive / 4+ Antibody Screen Negative Imaging Data^: CXR: Attestation: I personally reviewed and interpreted this imaging study as follows: Radiologist's impression: [address] [address] XRay Report Signed Patient: Ivette Wheeler Unit #: [id number] : 1960 Age/Sex: 60 / F ADM Date: 02/13/21 Loc: ER Room/Bed: Attending Dr: Ordering Provider/Ordering MD: Cherelle Warner MD Date of Service: 02/13/21 Procedure(s): XR chest 1V portable [id number] Accession Number(s): [id number] Report Number: [id number] PROCEDURE INFORMATION: Exam: XR Chest Exam date and time: 02/13/2021 11:47 PM Age: 60 years old Clinical indication: Shortness of breath; Prior surgery; Surgery type: Triple bypass, stents; Additional info: Weakness, SOB, leg edema and bruising to left leg. TECHNIQUE: Imaging protocol: XR of the chest. Views: 1 view. COMPARISON: CR XR chest 1V portable [id number] 01/24/2021 5:50 AM FINDINGS: Lungs: Resolution of previously noted bilateral pulmonary opacities. Pleural spaces: Unremarkable. No pleural effusion. No pneumothorax. Heart/Mediastinum: Unremarkable. No cardiomegaly. Bones/joints: Stable sternotomy. XR/XR chest 1V portable [id number] IMPRESSION: Resolution of previously noted bilateral pulmonary opacities. EKG Data^: EKG 1: Attestation: I personally reviewed and interpreted this EKG as follows: EKG Interpretation Date: 02/14/21 EKG interpretation time: 00:31 Interpretation: afib hr [address] or t wave abnormalities qrs 88 qtc 508 Discharge Plan Discharge Patient Disposition: Home Clinical Impression: Weakness Heat exhaustion Qualifiers: Encounter type: initial encounter Qualified Code(s): T67.5XXA - Heat exhaustion, unspecified, initial encounter Condition: Stable Prescriptions: No Action fenofibrate nanocrystallized 145 mg tablet 145 mg PO DAILY RF: 0 omega-3 fatty acids [Fish Oil Concentrate] 1,000 mg capsule 1,000 mg PO BID RF: 0 sotalol 120 mg tablet 120 mg PO BID Qty: 180 RF: 3 levothyroxine [Euthyrox] 150 mcg tablet 150 mcg PO DAILY RF: 0 metformin 750 mg tablet extended release 24 hr 750 mg PO BID RF: 0 potassium chloride 10 mEq tablet extended release 20 meq PO DAILY RF: 0 warfarin 4 mg tablet 4 mg PO BEDTIME RF: 0 Hold Instructions: Resume on 02/18/21. furosemide 20 mg tablet 40 mg PO DAILY RF: 0 Hold Instructions: Resume on 02/18/21. clobetasol 0.05 % ointment 1 applic TOPICAL BID PRN (Reason: unknown) RF: 0 zinc gluconate 50 mg Tablet 50 mg PO DAILY Qty: 14 RF: 0 trazodone 50 mg tablet 50 mg PO BEDTIME RF: 0 Benadryl Allergy 25 mg Tablet 25 mg PO BEDTIME RF: 0 warfarin 5 mg tablet 5 mg PO BEDTIME RF: 0 Hold Instructions: Resume on 02/18/21. Advair Diskus 250-50 mcg/dose blister with device 1 puff inhalation BID RF: 0 cefdinir 300 mg Capsule 300 mg PO BID Qty: 12 RF: 0 diltiazem HCl 60 mg capsule,extended release 12 hr 60 mg PO BID Qty: 60 RF: 0 pantoprazole 40 mg Tablet,Delayed Release (Dr/Ec) 40 mg PO BID Qty: 60 RF: 0 Discharge Orders: Discharge ED (Routine); Ordered 02/14/21 Ordered By: Cherelle Warner Referrals: Yulia Hunter DIAPER MACHINE TENDER [Primary Care Provider] - 1-3 days Discharge Diet: Advance as tolerated Discharge Activity: Resume usual activity Patient Instructions: Heat Exhaustion (ED) Coding Level of Care Code ED Control Chemist for Jimmie Fwd Exam Comprehensive
[2021-02-14 00:34] VITALS: BP 80/50; PULSE 72; RESP 21; O2SAT 99
[2021-02-14] MEDS: sodium chloride 0.9% 1,000 ML 999 ML IV (00:52)
[2021-02-14 01:25] LABS: Basophils # 0.1 10^3/uL (0.0-0.1); Basophils % 0.4 %; Eosinophils # 0.1 10^3/uL (0.0-0.8); Eosinophils % 0.7 %; Hematocrit 30.9 % (37.0-47.0); Hemoglobin 9.1 g/dL (11.5-15.3); Lymphocytes # 1.8 10^3/uL (0.8-4.8); Lymphocytes % 12.9 %; Mean Corpuscular HGB Conc 29.4 g/dL (30.0-36.0); Mean Corpuscular Hemoglobin 27.9 pg (28.0-34.0); Mean Corpuscular Volume 94.8 fL (81-99); Mean Platelet Volume 10.4 fL (7.4-10.4); Monocytes % 7.2 %; Neutrophils # 10.48 10^3/uL (1.8-7.7); Neutrophils % 76.1 %; Nucleated Red Blood Cells # 0.4 /100WBC; Nucleated Red Blood Cells % 3.1 %; Platelet Count 286 10^3/cmm (130-400); Red Blood Count 3.26 10^6/uL (4.1-5.3); White Blood Count 13.8 10^3/uL (4.0-10.0)
[2021-02-14 01:45] LABS: Alanine Aminotransferase 110 U/L (0-33); Alkaline Phosphatase 94 IU/L (35-105); Anion Gap 13.9 (5-19); Aspartate Amino Transferase 88 U/L (0-32); Blood Urea Nitrogen 18 mg/dL (8-23); Calcium 7.9 mg/dL (8.5-10.5); Carbon Dioxide 23 mmol/L (22-29); Chloride 102 mmol/L (98-107); Globulin 2.6 g/dL (1.3-4.6); Glomerular Filtration Rate 101.6 mL/min (90-130); Glucose 228 mg/dL (65-115); Lactate (Lactic Acid level) 2.1 mmol/L (0.5-2.2); Osmolality Calculated 287 mOsm/kg (285-295); Potassium 4.9 mmol/L (3.5-5.1); Sodium 134 mmol/L (136-145); Total Bilirubin 2.2 mg/dL (0.15-1.2); Total Protein 5.6 g/dL (6.6-8.7)
[2021-02-14 01:55] LABS: NT Pro B Type Natriuretic Pept 1307 pg/mL (0-125)
[2021-02-14 02:00] VITALS: BP 98/65; PULSE 87; RESP 25; O2SAT 93
[2021-02-14 02:47] VITALS: BP 93/65; PULSE 77; RESP 25; TEMP 36.6; O2SAT 96
== END 2021-02-14 02:50 | disposition home or self-care (01) ==
PROVIDERS: Emergency Provider Emergency Medicine; PCP Nurse Practitioner Family
DX: T67.5XXA Heat exhaustion, unspecified, initial encounter (principal); I11.0 Hypertensive heart disease with heart failure; I50.9 Heart failure, unspecified; I48.91 Unspecified atrial fibrillation; E78.5 Hyperlipidemia, unspecified; E11.9 Type 2 diabetes mellitus without complications; I25.10 Atherosclerotic heart disease of native coronary artery without angina pectoris; Z86.718 Personal history of other venous thrombosis and embolism; Z79.01 Long term (current) use of anticoagulants; Z79.84 Long term (current) use of oral hypoglycemic drugs; X30.XXXA Exposure to excessive natural heat, initial encounter; Y92.009 Unspecified place in unspecified non-institutional (private) residence as the place of occurrence of the external cause
CPT/HCPCS: 71045; 80053; 83605; 83880; 85025; 85610; 86850; 86900; 87040; 93005; 96360; 99284; J7030

== ENCOUNTER 2021-02-15 10:57 | Outpatient (CLI) | payer OTHER, SELFPAY ==
[2021-02-15 12:21] LABS: Basophils # 0.1 10^3/uL (0.0-0.1); Basophils % 0.5 %; Eosinophils # 0.1 10^3/uL (0.0-0.8); Eosinophils % 0.8 %; Hematocrit 30.3 % (37.0-47.0); Hemoglobin 9.2 g/dL (11.5-15.3); Lymphocytes # 2.6 10^3/uL (0.8-4.8); Lymphocytes % 19.8 %; Mean Corpuscular HGB Conc 30.4 g/dL (30.0-36.0); Mean Corpuscular Hemoglobin 28.3 pg (28.0-34.0); Mean Corpuscular Volume 93.2 fL (81-99); Mean Platelet Volume 9.9 fL (7.4-10.4); Monocytes % 7.9 %; Neutrophils # 9.19 10^3/uL (1.8-7.7); Neutrophils % 69.4 %; Nucleated Red Blood Cells # 0.3 /100WBC; Nucleated Red Blood Cells % 2.1 %; Platelet Count 249 10^3/cmm (130-400); Red Blood Count 3.25 10^6/uL (4.1-5.3); Red Cell Distribution Width 19.1 % (12.1-15.1); White Blood Count 13.2 10^3/uL (4.0-10.0)
[2021-02-15 12:53] LABS: Alanine Aminotransferase 93 U/L (0-33); Albumin Level 3.3 g/dL (3.5-5.2); Alkaline Phosphatase 82 IU/L (35-105); Aspartate Amino Transferase 54 U/L (0-32); Blood Urea Nitrogen 19 mg/dL (8-23); Calcium 7.9 mg/dL (8.5-10.5); Carbon Dioxide 25 mmol/L (22-29); Chloride 98 mmol/L (98-107); Globulin 2.6 g/dL (1.3-4.6); Glomerular Filtration Rate 85.1 mL/min (90-130); Glucose 137 mg/dL (65-115); NT Pro B Type Natriuretic Pept 1204 pg/mL (0-125); Osmolality Calculated 276 mOsm/kg (285-295); Sodium 131 mmol/L (136-145); Thyroid Stimulating Hormone 4.14 uIU/mL (0.27-4.20); Total Protein 5.9 g/dL (6.6-8.7)
== END 2021-02-15 10:58 | disposition home or self-care (01) ==
PROVIDERS: PCP Nurse Practitioner Family; Visit Provider Family Medicine
DX: R79.1 Abnormal coagulation profile (principal); R94.5 Abnormal results of liver function studies
CPT/HCPCS: 36415; 80053; 83880; 84443; 85025; 85610

== ENCOUNTER 2021-02-16 17:35 | Observation (INO) | payer OTHER, SELFPAY ==
--- NOTE | 2021-02-16 18:02 | ECG_ITS ---
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: : 1960 Requested By: Tod Patiño Order Number: [id number] Reading MD: AGNES SARABIA Measurements Intervals [place] Rate: 66 P: [place]: QRS: 190 QRSD: 89 T: 206 QT: 420 QTc: 442 Interpretive Statements ATRIAL FIBRILLATION POSSIBLE RIGHT VENTRICULAR HYPERTROPHY [SOME/ALL OF: PROMINENT R IN V1, LATE TRANSITION, RAD, RAHUL, SSS] INFERIOR MYOCARDIAL INFARCTION [40+ ms Q WAVE AND/OR ST/T ABNORMALITY IN II/aVF], OF INDETERMINATE AGE Compared to ECG 02/17/2021 00:59:24 Atrial abnormality now present Myocardial infarct finding now present T-wave abnormality no longer present Electronically Signed On 02-17-2021 20:28:32 CDT by AGNES SARABIA [id number]
[2021-02-16 18:41] VITALS: BP 110/79; PULSE 63; RESP 17; TEMP 36.4; O2SAT 93; BMI 38.6
[2021-02-16 20:37] VITALS: BP 94/61; PULSE 71; RESP 18; TEMP 36.6; O2SAT 95
[2021-02-17] VITALS (8 sets, daily range): BP systolic 107–118; BP diastolic 74–87; PULSE 83–99; RESP 18–22; TEMP 36.3–36.6; O2SAT 92–96
--- NOTE | 2021-02-17 00:02 | ECG_ITS ---
[facility] Test Date: 2021-02-17 Pat Name: Ivette Wheeler Department: Room: Gender: Female Voip Technician: : 1960 Requested By: Tod Patiño Order Number: [id number] Reading MD: AGNES SARABIA Measurements Intervals [place] Rate: 78 P: [place]: QRS: 11 QRSD: 88 T: 51 QT: 401 QTc: 459 Interpretive Statements ATRIAL FIBRILLATION NONSPECIFIC T-WAVE ABNORMALITY ABNORMAL RHYTHM ECG Compared to ECG 02/14/2021 00:31:58 Possible ischemia no longer present T-wave abnormality still present Electronically Signed On 02-17-2021 20:31:05 CDT by AGNES SARABIA [id number]
[2021-02-17 00:18] LABS: Basophils % 0.3 %; Eosinophils % 0.3 %; Hematocrit 34.6 % (37.0-47.0); Hemoglobin 10.4 g/dL (11.5-15.3); Lymphocytes # 2.6 10^3/uL (0.8-4.8); Lymphocytes % 20.6 %; Mean Corpuscular HGB Conc 30.1 g/dL (30.0-36.0); Mean Corpuscular Volume 96.4 fL (81-99); Mean Platelet Volume 10.5 fL (7.4-10.4); Neutrophils # 8.76 10^3/uL (1.8-7.7); Nucleated Red Blood Cells # 0.5 /100WBC; Nucleated Red Blood Cells % 3.7 %; Platelet Count 225 10^3/cmm (130-400); Red Blood Count 3.59 10^6/uL (4.1-5.3); White Blood Count 12.7 10^3/uL (4.0-10.0)
[2021-02-17 00:32] LABS: Alanine Aminotransferase 83 U/L (0-33); Albumin Level 3.4 g/dL (3.5-5.2); Alkaline Phosphatase 108 IU/L (35-105); Chloride 99 mmol/L (98-107); Lactic Sepsis W/Reflex 1.7 mmol/L (0.5-2.2); Potassium 4.4 mmol/L (3.5-5.1); Sodium 133 mmol/L (136-145)
[2021-02-17 00:38] LABS: Troponin(5th) Baseline 201 ng/L (0-10)
[2021-02-17 00:47] LABS: Anion Gap 17.4 (5-19); Aspartate Amino Transferase 47 U/L (0-32); Blood Urea Nitrogen 26 mg/dL (8-23); Calcium 8.2 mg/dL (8.5-10.5); Carbon Dioxide 21 mmol/L (22-29); Globulin 2.5 g/dL (1.3-4.6); Glomerular Filtration Rate 63.7 mL/min (90-130); Total Bilirubin 2.4 mg/dL (0.15-1.2); Total Protein 5.9 g/dL (6.6-8.7)
[2021-02-17 00:57] LABS: Glucose 138 mg/dL (65-115); Osmolality Calculated 283 mOsm/kg (285-295)
--- NOTE | 2021-02-17 01:00 | XRR_ITS ---
PROCEDURE INFORMATION: Exam: XR Chest Exam date and time: 02/17/2021 1:00 AM Age: 60 years old Clinical indication: Shortness of breath; Prior surgery; Surgery type: Cabg; Patient HX: SOB. Weakness. History of chf. ; Additional info: Weakness, hypoxia TECHNIQUE: Imaging protocol: XR of the chest. Views: 1 view. COMPARISON: CR XR chest 1V portable [id number] 02/13/2021 11:52 PM FINDINGS: Lungs: Hazy left basilar opacity which could be secondary to atelectasis or pneumonia. Pleural spaces: Unremarkable. No pleural effusion. No pneumothorax. Heart/Mediastinum: Unremarkable. No cardiomegaly. Bones/joints: There has been a median sternotomy. XR/XR chest 1V portable [id number] IMPRESSION: Hazy left basilar opacity which could be secondary to atelectasis or pneumonia.
--- NOTE | 2021-02-17 01:32 | W.ED.WEAKNES ---
HPI - Weakness General: Chief complaint: Weakness Stated complaint: WEAKNESS Time Seen by Provider: 02/17/21 01:06 History of Present Illness: HPI Narrative: 60-year-old female who complains of generalized weakness. She was in the hospital at the beginning of the month with COVID-19, and recently in the hospital for blood transfusion after developing a hematoma in her left thigh dropping her hemoglobin and with a supratherapeutic INR. She states she has been generally weak. She has not been able to get around well, because of her leg, and her generalized weakness. She says she has had brief episodes of chest pain on and off, but they were short-lived and mild. She has been a bit more short of breath. Her pulse ox at home was reading low which is one of the reason that she came in for evaluation she does have a history of coronary disease, atrial fibrillation. Her air conditioning unit has been out at home, and it has been getting quite hot in the daytime, she is concerned that this may be part of her issue MD Complaint: generalized weakness Onset (ago): day(s) Duration: constant and progressively worsening Location: LLE and RLE Relieving factors: none Exacerbating factors: exertion Associated symptoms: Reports chest pain and nausea; Denies confusion, melena, diaphoresis, fever(s), headache(s) or rash Review of Systems Const: Denies: fever(s) or diaphoresis Card: Reports: chest pain GI: Reports: nausea; Denies: melena Neuro: Denies: headache(s) or confusion PFS ED PFSH: Medical History (Updated 02/17/21 @ 04:16 by Zuleyka Hand MD) ASHD (arteriosclerotic heart disease) Atrial fibrillation CHF (congestive heart failure) COVID-19 January Dyslipidemia Essential hypertension Hx of deep venous thrombosis Tricuspid incompetence Type 2 diabetes mellitus Surgical History History of coronary artery bypass graft 2004 History of coronary artery stent placement History of total vaginal hysterectomy History of tubal ligation Status post colonoscopy Family History Other CAD (coronary artery disease) Diabetes Hypertension Social History Smoking and tobacco status: never smoked Alcohol intake: current Alcohol intake frequency: holidays/special occasions only Household members: significant other Marital status: Single History of recent travel: No Physical Exam Const: COMMON NORMALS: no acute distress, patient oriented x3 and alert GENERAL APPEARANCE: cooperative and ill appearing (mild) Chest: COMMONS NORMALS: normal inspection of the chest Resp: COMMON NORMALS: normal respiratory effort, No use of accessory muscles and clear to auscultation bilaterally AUSCULTATION: clear to auscultation bilaterally Cardio: COMMON NORMALS: regular rate, regular rhythm, No murmurs present (Cardio) and Peripheral pulses 2+ throughout RATE: regular rate RHYTHM: regular rhythm PERIPHERAL PULSES: Peripheral pulses 2+ throughout Extremity: NARRATIVE EXTREMITY EXAM: Significant lower extremity edema bilaterally, left greater than right. She has ecchymosis to the left posterior lower extremity diffusely. This appears old and evolving. Neuro: COMMON NORMALS: patient oriented x3 SENSORIUM/ORIENTATION: Yes alert Course Consultations: Consultation #1: denisse Time: 03:28 Vital Signs: Vital signs: Vital Signs Temperature 97.9 F 02/16/21 20:37 Pulse Rate 83 02/17/21 01:11 Respiratory Rate 18 02/17/21 01:11 Blood Pressure 107/74 02/17/21 01:11 Pulse Oximetry 92 02/17/21 01:11 MDM - Weakness MDM Narrative: Medical decision making narrative: Troponin is 200. Her 2-hour is 183 with a delta of 17. By her history, this likely happened yesterday, as she states that she kept having panic attacks yesterday with some pains and shortness of breath. She will be observed. Lab Data: Labs: Lab Results 02/16/21 02/16/21 02/16/21 Range/Units 23:33 23:33 23:33 WBC 12.7 H (4.0-10.0) 10^3/ uL RBC 3.59 L (4.1-5.3) 10^6/u L Hgb 10.4 L (11.5-15.3) g/dL Hct 34.6 L (37.0-47.0) % MCV 96.4 (81-99) fL MCH 29.0 (28.0-34.0) pg MCHC 30.1 (30.0-36.0) g/dL RDW 21.0 H (12.1-15.1) % Plt Count 225 (130-400) 10^3/c mm MPV 10.5 H (7.4-10.4) fL Neut % (Auto) 69.0 % Lymph % (Auto) 20.6 % [place] % (Auto) 8.0 % Eos % (Auto) 0.3 % Baso % (Auto) 0.3 % Neut # (Auto) 8.76 H (1.8-7.7) 10^3/u L Lymph # (Auto) 2.6 (0.8-4.8) 10^3/u L [place] # (Auto) 1.0 H (0.2-0.9) 10^3/u L Eos # (Auto) 0.0 (0.0-0.8) 10^3/u L Baso # (Auto) 0.0 (0.0-0.1) 10^3/u L Nucleated RBC % (a uto) 3.7 % Nucleated RBCs # 0.5 /100WBC PT (12.1-14.9) SECO NDS INR (0.8-1.2) Sodium 133 L (136-145) mmol/L Potassium 4.4 (3.5-5.1) mmol/L Chloride 99 (98-107) mmol/L Carbon Dioxide 21 L (22-29) mmol/L Anion Gap 17.4 (5-19) BUN 26 H (8-23) mg/dL Creatinine 0.9 (0.5-0.9) mg/dL GFR Calculation 63.7 L (90-130) mL/min Glucose 138 H (65-115) mg/dL Calculated Osmolal ity 283 L (285-295) mOsm/k g Lactic Acid 1.7 (0.5-2.2) mmol/L Calcium 8.2 L (8.5-10.5) mg/dL Total Bilirubin 2.4 H (0.15-1.2) mg/dL AST 47 H (0-32) U/L ALT 83 H (0-33) U/L Alkaline Phosphata se 108 H (35-105) IU/L Creatine Kinase (26-192) U/L Troponin T Baselin e (0-10) ng/L Troponin T 120 Min [place] (0-10) ng/L Delta Troponin T (0-10) ABS# NT-Pro-B Natriuret Pep (0-125) pg/mL Total Protein 5.9 L (6.6-8.7) g/dL Albumin 3.4 L (3.5-5.2) g/dL Globulin 2.5 (1.3-4.6) g/dL Urine Color (Yellow) Urine Appearance (CLEAR) Urine pH (5-7) Ur Specific Gravit y (1.005-1.030) Urine Protein (Negative) Urine Glucose (UA) (Normal) Urine Ketones (Negative) Urine Blood (Negative) Urine Nitrate (Negative) Urine Bilirubin (Negative) Urine Urobilinogen (Negative) mg/dL Ur Leukocyte Kaylee ase (Negative) Urine RBC (0-2) /hpf Urine WBC (0-5) /hpf Ur Squamous Epith Cells (0-5) /hpf Amorphous Sediment /hpf Urine Bacteria (NONE) /hpf Hyaline Casts /lpf Urine Mucus /hpf SARS-CoV-2 Ag (Rap id) (Negative) 02/16/21 02/16/21 02/16/21 Range/Units 23:33 23:33 23:33 WBC (4.0-10.0) 10^3/ uL RBC (4.1-5.3) 10^6/u L Hgb (11.5-15.3) g/dL Hct (37.0-47.0) % MCV (81-99) fL MCH (28.0-34.0) pg MCHC (30.0-36.0) g/dL RDW (12.1-15.1) % Plt Count (130-400) 10^3/c mm MPV (7.4-10.4) fL Neut % (Auto) % Lymph % (Auto) % [place] % (Auto) % Eos % (Auto) % Baso % (Auto) % Neut # (Auto) (1.8-7.7) 10^3/u L Lymph # (Auto) (0.8-4.8) 10^3/u L [place] # (Auto) (0.2-0.9) 10^3/u L Eos # (Auto) (0.0-0.8) 10^3/u L Baso # (Auto) (0.0-0.1) 10^3/u L Nucleated RBC % (a uto) % Nucleated RBCs # /100WBC PT 15.50 H (12.1-14.9) SECO NDS INR 1.19 (0.8-1.2) Sodium (136-145) mmol/L Potassium (3.5-5.1) mmol/L Chloride (98-107) mmol/L Carbon Dioxide (22-29) mmol/L Anion Gap (5-19) BUN (8-23) mg/dL Creatinine (0.5-0.9) mg/dL GFR Calculation (90-130) mL/min Glucose (65-115) mg/dL Calculated Osmolal ity (285-295) mOsm/k g Lactic Acid (0.5-2.2) mmol/L Calcium (8.5-10.5) mg/dL Total Bilirubin (0.15-1.2) mg/dL AST (0-32) U/L ALT (0-33) U/L Alkaline Phosphata se (35-105) IU/L Creatine Kinase 75 (26-192) U/L Troponin T Baselin e 201 H* (0-10) ng/L Troponin T 120 Min [place] (0-10) ng/L Delta Troponin T (0-10) ABS# NT-Pro-B Natriuret Pep 1741 H (0-125) pg/mL Total Protein (6.6-8.7) g/dL Albumin (3.5-5.2) g/dL Globulin (1.3-4.6) g/dL Urine Color (Yellow) Urine Appearance (CLEAR) Urine pH (5-7) Ur Specific Gravit y (1.005-1.030) Urine Protein (Negative) Urine Glucose (UA) (Normal) Urine Ketones (Negative) Urine Blood (Negative) Urine Nitrate (Negative) Urine Bilirubin (Negative) Urine Urobilinogen (Negative) mg/dL Ur Leukocyte Kaylee ase (Negative) Urine RBC (0-2) /hpf Urine WBC (0-5) /hpf Ur Squamous Epith Cells (0-5) /hpf Amorphous Sediment /hpf Urine Bacteria (NONE) /hpf Hyaline Casts /lpf Urine Mucus /hpf SARS-CoV-2 Ag (Rap id) (Negative) 02/17/21 02/17/21 02/17/21 Range/Units 01:13 01:13 02:38 WBC (4.0-10.0) 10^3/ uL RBC (4.1-5.3) 10^6/u L Hgb (11.5-15.3) g/dL Hct (37.0-47.0) % MCV (81-99) fL MCH (28.0-34.0) pg MCHC (30.0-36.0) g/dL RDW (12.1-15.1) % Plt Count (130-400) 10^3/c mm MPV (7.4-10.4) fL Neut % (Auto) % Lymph % (Auto) % [place] % (Auto) % Eos % (Auto) % Baso % (Auto) % Neut # (Auto) (1.8-7.7) 10^3/u L Lymph # (Auto) (0.8-4.8) 10^3/u L [place] # (Auto) (0.2-0.9) 10^3/u L Eos # (Auto) (0.0-0.8) 10^3/u L Baso # (Auto) (0.0-0.1) 10^3/u L Nucleated RBC % (a uto) % Nucleated RBCs # /100WBC PT (12.1-14.9) SECO NDS INR (0.8-1.2) Sodium (136-145) mmol/L Potassium (3.5-5.1) mmol/L Chloride (98-107) mmol/L Carbon Dioxide (22-29) mmol/L Anion Gap (5-19) BUN (8-23) mg/dL Creatinine (0.5-0.9) mg/dL GFR Calculation (90-130) mL/min Glucose (65-115) mg/dL Calculated Osmolal ity (285-295) mOsm/k g Lactic Acid (0.5-2.2) mmol/L Calcium (8.5-10.5) mg/dL Total Bilirubin (0.15-1.2) mg/dL AST (0-32) U/L ALT (0-33) U/L Alkaline Phosphata se (35-105) IU/L Creatine Kinase (26-192) U/L Troponin T Baselin e (0-10) ng/L Troponin T 120 Min [place] 183.1 H (0-10) ng/L Delta Troponin T -17.9 L (0-10) ABS# NT-Pro-B Natriuret Pep (0-125) pg/mL Total Protein (6.6-8.7) g/dL Albumin (3.5-5.2) g/dL Globulin (1.3-4.6) g/dL Urine Color Yellow (Yellow) Urine Appearance Clear (CLEAR) Urine pH 5 (5-7) Ur Specific Gravit y 1.020 (1.005-1.030) Urine Protein Trace (Negative) Urine Glucose (UA) Norm (Normal) Urine Ketones Negative (Negative) Urine Blood Neg (Negative) Urine Nitrate Negative (Negative) Urine Bilirubin 1+ H (Negative) Urine Urobilinogen 8 H (Negative) mg/dL Ur Leukocyte Kaylee ase Negative (Negative) Urine RBC 0-4 H (0-2) /hpf Urine WBC 0-4 H (0-5) /hpf Ur Squamous Epith Cells 15-25 H (0-5) /hpf Amorphous Sediment 4+ /hpf Urine Bacteria 1+ H (NONE) /hpf Hyaline Casts 5-10 H /lpf Urine Mucus 2+ /hpf SARS-CoV-2 Ag (Rap id) Negative (Negative) Discharge Plan Discharge Patient Disposition: Placed in Observation Admit Provider: Zuleyka Hand Clinical Impression: Acute myocardial infarction Qualifiers: Myocardial infarction type: non-ST elevation myocardial infarction Qualified Code(s): I21.4 - Non-ST elevation (NSTEMI) myocardial infarction Coding Level of Care Code ED Coagulator for Chg Fwd Exam Expanded Problem Focused
[2021-02-17 01:37] LABS: Troponin 5 2HR Delta -17.9 ABS# (0-10)
[2021-02-17 01:38] LABS: Troponin 5 2HR 183.1 ng/L (0-10)
[2021-02-17 01:47] LABS: SARS Covid-2 Antigen Negative (Negative)
[2021-02-17 01:56] LABS: Creatine Phosphokinase 75 U/L (26-192); NT Pro B Type Natriuretic Pept 1741 pg/mL (0-125)
[2021-02-17 01:58] LABS: INR 1.19 (0.8-1.2)
[2021-02-17 02:47] LABS: Urine Appearance Clear (CLEAR); Urine Color Yellow (Yellow)
[2021-02-17 02:48] LABS: Add Urine Microscopic? YES; Bilirubin Urine 1+ (Negative); Blood Urine Neg (Negative); Glucose Urine UA Norm (Normal); Ketones Urine Negative (Negative); Leukocyte Esterase Urine Negative (Negative); Nitrate Urine Negative (Negative); Protein Urine Trace (Negative); Urobilinogen Urine 8 mg/dL (Negative); pH Urine 5 (5-7)
[2021-02-17 03:20] LABS: Bacteria Urine 1+ /hpf; Mucus Urine 2+ /hpf; RBC Urine 0-4 /hpf (0-2); Squamous Epithelial Cell Urine 15-25 /hpf (0-5); WBC Urine 0-4 /hpf (0-5)
[2021-02-17 03:21] LABS: Add Urine Culture? No; Amorphous Sediment Urine 4+ /hpf
--- NOTE | 2021-02-17 04:06 | P.HP_ITS ---
Providers/Chief Complaint Primary Care Provider: Yulia Hunter Chief Complaint: WEAKNESS History of Present Illness Ivette Wheeler is a 60 year old female with PMH d CHF, CAD s/p CABG and most recent stenting in 02/2020, A fib with RVR with supratherapuetic INR and thigh hematoma leading to anemia, needing admission between 02/08-02/11, recent covid 19 infection on 01/26/21, ER visit on 02/14 for heat exhaustion. Plavix was disco ntinued, warfarin was held on 02/11. She presents to ER today with c/o generalized weakness and endorsed intermittent chest pain over the past week along with orthopnea and dyspnea on exertion. Baseline trop elevated at 201, 2 hr at 183 with negative delta. EKG today with A fib , rate controlled. from early January trop was 14. Last echo on 01/23 with Normal left ventricular size and systolic function, EF 63 %, prolapse of the anterior mitral leaflets, Pulmonary hypertension, biatrial enlaregement. Hb stable at 10.4, BNP at recent baseline 1741 , CXR with improving B/L infiltrates. Review of Systems General: Reports: 10 or more systems reviewed and unremarkable except in HPI and below Const: Denies: fever(s), chills or body aches Eyes: Denies: change in vision, blurry vision or photophobia ENMT: Reports: hoarseness; Denies: throat pain, enlarged tonsils, odynophagia or nasal congestion Card: Denies: chest pain, palpitations, irregular heart rhythm, edema, swelling of feet/ankles, lightheadedness, pre-syncope, dyspnea on exertion or orthopnea Resp: Denies: dyspnea, productive cough, non-productive cough, wheezing, stridor, pain on inspiration, change in phlegm color, hemoptysis or chest congestion GI: Denies: abdominal pain, nausea, vomiting, hematemesis, coffee ground emesis, dysphagia, heartburn, diarrhea, constipation, GI cramping, change in stool character, hematochezia or melena : Denies: flank pain, difficulty voiding, dysuria, urinary frequency, urinary urgency, urinary hesitancy or hematuria Musc: Denies: neck pain, back pain, extremity pain, joint swelling, joint warmth or deformity Neuro: Denies: headache(s), numbness in extremities, weakness in extremities, sensory changes, difficulty walking, frequent falls, dizziness, vertigo, behavio ral changes, Slurred speech present or seizure-like activity Psych: Denies: anxiety, depression, suicidal ideation or homicidal ideation Endo: Denies: polyuria, polydipsia, tired all the time, cold intolerance or hot flashes Flavio/Lymph: Denies: easy bruising or easy bleeding Medications/Allergies Home Medications Medication Instructions Recorded Confirmed Last Taken Type fenofibrate nanocrystallized 145 145 mg PO DAILY 12/30/19 02/08/21 02/08/21 History mg tablet sotalol 120 mg tablet 120 mg PO BID #180 tab 11/14/20 02/08/21 02/08/21 Rx omega-3 fatty acids 1,000 mg 1,000 mg PO BID cap 01/12/21 02/08/21 01/22/21 06:00 History capsule clobetasol 1 applic TOPICAL BID PRN 01/22/21 02/08/21 Unknown History furosemide 40 mg PO DAILY 01/22/21 02/08/21 02/08/21 History levothyroxine [Euthyrox] 150 mcg PO DAILY 01/22/21 02/08/21 02/08/21 History metformin 750 mg PO BID 01/22/21 02/08/21 02/08/21 History potassium chloride 20 meq PO DAILY 01/22/21 02/08/21 02/08/21 History warfarin 4 mg PO BEDTIME 01/22/21 02/08/21 02/07/21 History zinc gluconate 50 mg PO DAILY #14 tab 01/25/21 02/08/21 02/08/21 Rx Advair Diskus 1 puff INHALATION BID 02/08/21 02/08/21 02/08/21 History Benadryl Allergy 25 mg PO BEDTIME 02/08/21 02/08/21 02/07/21 History trazodone 50 mg PO BEDTIME 02/08/21 02/08/21 02/07/21 History warfarin 5 mg PO BEDTIME 02/08/21 02/08/21 02/07/21 History cefdinir 300 mg PO BID #12 cap 02/11/21 Unknown Rx diltiazem HCl 60 mg PO BID #60 cap 02/11/21 Unknown Rx pantoprazole 40 mg PO BID #60 tab 02/11/21 Unknown Rx Allergies Allergy/AdvReac Type Severity Reaction Status Date / Time atorvastatin [From Lipitor] Allergy Unknown Verified 02/08/21 11:51 lisinopril Allergy Unknown Verified 02/08/21 11:51 PFSH Acute PFSH: Medical History (Updated 02/17/21 @ 04:16 by Zuleyka Hand MD) ASHD (arteriosclerotic heart disease) Atrial fibrillation CHF (congestive heart failure) COVID-19 January Dyslipidemia Essential hypertension Hx of deep venous thrombosis Tricuspid incompetence Type 2 diabetes mellitus Surgical History History of coronary artery bypass graft 2005 History of coronary artery stent placement History of total vaginal hysterectomy History of tubal ligation Status post colonoscopy Family History Other CAD (coronary artery disease) Diabetes Hypertension Social History Smoking and tobacco status: never smoked Alcohol intake: current Alcohol intake frequency: holidays/special occasions only Household members: significant other Marital status: Single History of recent travel: No Vitals/I&O/Wt Last Vital Signs Temp 97.9 F 02/16/21 20:37 Pulse 83 02/17/21 01:11 Resp 18 02/17/21 01:11 BP 107/74 02/17/21 01:11 Pulse Ox 92 02/17/21 01:11 Weight last 48 hrs Weight 102.058 kg Physical Exam Narrative: EXAM NARRATIVE: General: No acute distress, AO x3 HEENT: PERRLA, pupils bilaterally equal and reactive, pallors not present Chest: Normal vesicular breath sounds, no added sounds, equal good air entry bilaterally CVS: S1-S2 regular, no murmurs, no tachycardia, no gallops, no rubs Abdomen: Soft, nontender, no organomegaly, bowel sounds present Neuro: No focal deficits, no facial deformity, AO x3, power 5/5 in all limbs Data : 02/16/21 23:33 02/16/21 23:33 Micro: Microbiology 02/16/21 23:36 Blood Culture - Preliminary Blood SPECIMEN COLLECTED 02/16/21 23:33 Blood Culture - Preliminary Blood SPECIMEN COLLECTED A&P Assessment and plan (1) Elevated troponin: Elevated trop with negative delta, no new EKG changes, intermittent ongoing chest pain Concern for anginal chest pain vs ?recently completed [place] May have been precipated by recent stressors, acute anemia, hematomas, COVID 19, Plavix and warfarin on hold , diuretics being on hold. 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
--- NOTE | 2021-02-17 07:50 | PC.NURSE ---
Attempted to call report to CSU, all nurses busy at this time. Will call this nurse back.
[2021-02-17 07:56] LABS: Troponin 5 6HR 214.7 ng/L (0-10); Troponin 5 6HR Delta 13.7 ng/L (0-12)
--- NOTE | 2021-02-17 08:31 | P.PN_ITS ---
Subjective Subjective: Interval history: no acute interim events, 6 hr delta + 13, no chest pain currently Vitals/I&O/Wt Last Vital Signs Temp 97.8 F 02/17/21 07:56 Pulse 89 02/17/21 07:56 Resp 19 H 02/17/21 07:56 BP 118/87 02/17/21 07:56 Pulse Ox 93 02/17/21 07:56 Weight last 48 hrs Weight 102.058 kg Physical Exam Narrative: EXAM NARRATIVE: General: No acute distress, AO x3 HEENT: PERRLA, pupils bilaterally equal and reactive, pallors not present Chest: Normal vesicular breath sounds, no added sounds, equal good air entry bilaterally CVS: S1-S2 regular, no murmurs, no tachycardia, no gallops, no rubs Abdomen: Soft, nontender, no organomegaly, bowel sounds present Neuro: No focal deficits, no facial deformity, AO x3, power 5/5 in all limbs ext: 2+ pitting edema B/L LE Data : 02/16/21 23:33 02/16/21 23:33 Micro: Microbiology 02/16/21 23:36 Blood Culture - Preliminary Blood SPECIMEN COLLECTED 02/16/21 23:33 Blood Culture - Preliminary Blood SPECIMEN COLLECTED A&P Assessment and plan (1) Elevated troponin: Elevated trop with negative delta, no new EKG changes, intermittent ongoing chest pain Concern for anginal chest pain vs ?recently completed [place] May have been precipated by recent stressors, acute anemia, hematomas, COVID 19, Plavix and warfarin on hold Started lasix 40mg iv q12h, patientys states having had poor response to 40mg po lasix at home recent echo in chart from 01/23/21 Will discuss with cardiology in am regarding next steps- stress test vs cardiac cath vs medical management Status: Acute (2) Diastolic CHF: Status: Acute (3) Pulmonary hypertension: Status: Acute Attestations Medical Necessity Statement*: awaiting cardiology evaluation Coding Level of Care Code Acute Pluck Separator for Chg Fwd Diagnoses Elevated troponin R77.8 Diastolic CHF I50.30 Pulmonary hypertension I27.20
[2021-02-17] MEDS: metformin 500 mg Tablet 750 MG PO ×2 (09:30→17:35)
[2021-02-17] MEDS: pantoprazole DR 40 mg Tablet PO ×2 (09:30→17:35)
[2021-02-17] MEDS: levothyroxine 150 mcg Tablet PO (09:30)
[2021-02-17] MEDS: fenofibrate 145 mg Tablet PO (09:31)
[2021-02-17] MEDS: dilTIAZem ER (12HR) 60 mg Capsule PO ×2 (09:31→17:35)
[2021-02-17] MEDS: sotalol 80 mg Tablet 120 MG PO ×2 (09:31→17:35)
[2021-02-17] MEDS: FUROsemide 10 mg/mL SDV 4mL 40 MG IVP ×2 (09:34→21:27)
--- NOTE | 2021-02-17 10:32 | P.CONIM_ITS ---
Providers/Reason For Consult Consulting Physician/Specialty*: Cardiology Reason for Consult*: Non-ST elevation AK Attending Physician: Zuleyka Hand MD Primary Care Provider: Yulia Hunter History of Present Illness History of Present Illness Ivette Wheeler is a 60 year old female past medical history significant for multivessel coronary artery disease status post CABG, status post PCI to RCA in February 2020 for occlusion of saphenous venous graft, hypertension, anxiety, congestive heart failure, recent Covid infection, recent large hematoma in the left thigh and leg region while on warfarin and Plavix for which both were stopped due to drop in hemoglobin admitted with feeling of some weakness and abnormal cardiac markers suggestive of a non-ST elevation [place], according to the patient reason she came to emergency room was not the chest pain but as she noted her pulse to be int 30s, it was later noted that she had a defective device and in fact she did not has bradycardia. Currently denies chest pain PND orthopnea. Troponin was around 200. Twelve-lead EKG did not show any significant ST changes. She still has left leg swelling and large bruising. Review of Systems General: Reports: 10 or more systems reviewed and unremarkable except in HPI and below Const: Denies: fever(s), chills, body aches or diaphoresis Eyes: Denies: change in vision, blurry vision or photophobia ENMT: Reports: hoarseness; Denies: throat pain, enlarged tonsils, odynophagia or nasal congestion Card: Denies: chest pain, palpitations, irregular heart rhythm, edema, swelling of feet/ankles, lightheadedness, pre-syncope, dyspnea on exertion or orthopnea Resp: Denies: dyspnea, productive cough, non-productive cough, wheezing, stridor, pain on inspiration, change in phlegm color, hemoptysis or chest congestion GI: Denies: abdominal pain, nausea, vomiting, hematemesis, coffee ground emesis, dysphagia, heartburn, diarrhea, constipation, GI cramping, change in stool character, hematochezia or melena : Denies: flank pain, difficulty voiding, dysuria, urinary frequency, urinary urgency, urinary hesitancy or hematuria Musc: Denies: neck pain, back pain, extremity pain, joint swelling, joint warmth or deformity Neuro: Denies: headache(s), numbness in extremities, weakness in extremities, sensory changes, difficulty walking, frequent falls, dizziness, vertigo, confusion, behavioral changes, Slurred speech present or seizure-like activity Psych: Denies: anxiety, depression, suicidal ideation or homicidal ideation Endo: Denies: polyuria, polydipsia, tired all the time, cold intolerance or hot flashes Flavio/Lymph: Denies: easy bruising or easy bleeding All/Imm: Denies: acute wheezing Meds/Allergies Home Medications and Allergies Home Medications Medication Instructions Recorded Confirmed Last Taken Type fenofibrate nanocrystallized 145 145 mg PO DAILY 12/30/19 02/17/21 02/08/21 History mg tablet sotalol 120 mg tablet 120 mg PO BID #180 tab 11/14/20 02/17/21 02/08/21 Rx omega-3 fatty acids 1,000 mg 1,000 mg PO BID cap 01/12/21 02/17/21 01/22/21 06:00 History capsule clobetasol 1 applic TOPICAL BID PRN 01/22/21 02/17/21 Unknown History furosemide 20 mg PO DAILY 01/22/21 02/17/21 02/08/21 History levothyroxine [Euthyrox] 150 mcg PO DAILY 01/22/21 02/17/21 02/08/21 History metformin 750 mg PO BID 01/22/21 02/17/21 02/08/21 History potassium chloride 10 meq PO DAILY 01/22/21 02/17/21 02/08/21 History warfarin 4 mg PO BEDTIME 01/22/21 02/17/21 02/07/21 History zinc gluconate 50 mg PO DAILY #14 tab 01/25/21 02/17/21 02/08/21 Rx diphenhydramine HCl [Benadryl 25 mg PO BEDTIME PRN 02/08/21 02/17/21 02/07/21 History Allergy] fluticasone propion-salmeterol 1 puff INHALATION BID 02/08/21 02/17/21 02/08/21 History [Advair Diskus] trazodone 50 mg PO BEDTIME 02/08/21 02/17/21 02/07/21 History warfarin 5 mg PO BEDTIME 02/08/21 02/17/21 02/07/21 History cefdinir 300 mg PO BID #12 cap 02/11/21 02/17/21 Unknown Rx diltiazem HCl 60 mg PO BID #60 cap 02/11/21 02/17/21 Unknown Rx pantoprazole 40 mg PO BID #60 tab 02/11/21 02/17/21 Unknown Rx benzonatate [Tessalon Perles] 100 mg PO Q8H PRN 02/17/21 02/17/21 Unknown History clarithromycin 1,000 mg PO ONCE 02/17/21 02/17/21 Unknown History diltiazem HCl See Rx Instructions .ROUTE .COMPLEX 02/17/21 02/17/21 Unknown History multivitamin 1 tab PO DAILY 02/17/21 02/17/21 Unknown History Allergies Allergy/AdvReac Type Severity Reaction Status Date / Time atorvastatin [From Lipitor] Allergy Unknown Verified 02/17/21 12:35 lisinopril Allergy Unknown Verified 02/17/21 12:35 Current Medications Current Medications Generic Name Dose Route Start Last Admin Trade Name Freq PRN Reason Stop Dose Admin Diltiazem HCl 60 mg 02/17/21 09:00 02/17/21 09:31 Diltiazem Er (12hr) 60 Mg Capsule PO 60 mg BID AGNES Administration Fenofibrate 145 mg 02/17/21 09:00 02/17/21 09:31 Fenofibrate 145 Mg Tablet PO 145 mg DAILY AGNES Administration Furosemide 40 mg 02/17/21 09:30 02/17/21 09:34 Furosemide 10 Mg/Ml Sdv 4ml IVP 40 mg Q12H AGNES Administration Levothyroxine Sodium 150 mcg 02/17/21 09:00 02/17/21 09:30 Levothyroxine 150 Mcg Tablet PO 150 mcg DAILY AGNES Administration Metformin HCl 750 mg 02/17/21 09:00 02/17/21 09:30 Metformin 500 Mg Tablet PO 750 mg BID AGNES Administration Pantoprazole Sodium 40 mg 02/17/21 09:00 02/17/21 09:[address] 40 Mg Tablet PO 40 mg BID AGNES Administration Sotalol HCl 120 mg 02/17/21 09:00 02/17/21 09:31 Sotalol 80 Mg Tablet PO 120 mg BID AGNES Administration PFSH Acute PFSH: Medical History (Updated 02/17/21 @ 14:57 by Kash Cunningham MD) ASHD (arteriosclerotic heart disease) Atrial fibrillation CHF (congestive heart failure) COVID-19 January Dyslipidemia Essential hypertension Hx of deep venous thrombosis Tricuspid incompetence Type 2 diabetes mellitus Surgical History History of coronary artery bypass graft 2005 History of coronary artery stent placement History of total vaginal hysterectomy History of tubal ligation Status post colonoscopy Family History Other CAD (coronary artery disease) Diabetes Hypertension Social History Smoking and tobacco status: never smoked Alcohol intake: current Alcohol intake frequency: holidays/special occasions only Household members: significant other Marital status: Single History of recent travel: No Dietary Habits: Current diet type/program: regular Caffeine: Yes (4-5) Caffeine intake frequency: coffee and tea Exercise: What type of physical activity do you participate in?: none Safety: Seatbelt use: always Home Safety: Working smoke detector in home: Yes Fire extinguisher in home: Yes Carbon monoxide detector in home: Yes Vitals/I&O/Wt Last Vital Signs Temp 97.4 F L 02/17/21 08:00 Pulse 84 02/17/21 08:00 Resp 22 H 02/17/21 08:00 BP 114/85 02/17/21 08:00 Pulse Ox 96 02/17/21 08:00 02/16/21 02/17/21 02/17/21 22:59 06:59 14:59 Output Total 300 / 300 Balance -300 / -300 Weight last 48 hrs Weight 225 lb Physical Exam Narrative: EXAM NARRATIVE: GENERAL: Patient is alert, awake and oriented x3. NECK: No jugular vein distension. HEENT: No cyanosis. No icterus. No pallor. HEART: Regular S1 and S2. No murmur, rub or gallop. LUNGS: Clear to auscultate bilaterally. ABDOMEN: Soft, nontender and nondistended. Positive bowel sounds. No guarding, rebound or tenderness. CENTRAL NERVOUS SYSTEM: Grossly nonfocal. EXTREMITIES: Lower extremities with 1+ edema left leg with large thigh and leg bruising. Data Micro: Micro: Microbiology 02/16/21 23:36 Blood Culture - Pr eliminary Blood SPECIMEN [facility] CHALO 02/16/21 23:33 Blood Culture - Pr eliminary Blood SPECIMEN [facility]ALO A&P Assessment and plan (1) NSTEMI (non-ST elevated myocardial infarction): Patient may have recent myocardial infarction currently she is stable currently she denies any symptoms such as chest pain out of usual shortness of breath. She has multivessel coronary artery disease. Since she is stable but has history of recent large hematoma bleeding anemia cannot take anticoagulation and antiplatelet for now we will treat her medically. I will optimize medicine and discharge her tomorrow. As an outpatient once bleeding hematoma resolved and she noted to tolerate clopidogrel may will opt for possible stress test based upon ischemia whether it is mild/moderate or large for the plan for invasive strategy will be devised I have detailed discussion with the patient regarding treatment. She is in agreement with it. Status: Acute (2) Diastolic CHF: Well compensated. Continue current Status: Acute Qualifiers: Heart failure chronicity: chronic Qualified Code(s): I50.32 - Chronic diastolic (congestive) heart failure (3) Atrial fibrillation with RVR: Well-controlled not on anticoagulation due to recent large hematoma/bleed and anemia Status: Acute (4) Essential hypertension: Well-controlled continue medicine Status: Acute (5) Hematoma of thigh: Resolving getting better however still large remnants of hematoma with swelling of the left leg and anemia persist therefore we will continue to hold warfarin and clopidogrel Status: Acute Qualifiers: Encounter type: initial encounter Laterality: left Qualified Code(s): S70.12XA - Contusion of left thigh, initial encounter (6) Anemia: Appear to be stable. Continue holding anticoagulation Status: Acute Qualifiers: Anemia type: iron deficiency Iron deficiency anemia type: other iron deficiency Qualified Code(s): D50.8 - Other iron deficiency anemias Consult Attestations Medical Necessity Statement: Patient require continuation hospitalization for above defined care. 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
--- NOTE | 2021-02-17 10:35 | USCV_ITS ---
Ivette Wheeler Age: 60 Gender: F : 1960 Exam Date: 02/17/2021 14:06 Ordering Phys: Kash Cunningham MD ([email or web address]) Technologist: Exam Location: [facility] [place] Indication: NSTEMI BP: 136 / 75 HR: 80 Rhythm: Sinus Technical Quality: Fair MEASUREMENTS (Male / Female) Normal Values 2D ECHO LV Diastolic Diameter PLAX 4.6 cm 4.2 - 5.9 / 3.9 - 5.3 cm LV Systolic Diameter PLAX 3.3 cm IVS Diastolic Thickness 1.3 cm 0.6 - 1.0 / 0.6 - 0.9 cm IVS Systolic Thickness 1.4 cm LVPW Diastolic Thickness 0.9 cm 0.6 - 1.0 / 0.6 - 0.9 cm LVPW Systolic Thickness 1.5 cm LVOT Diameter 2.1 cm LV Ejection Fraction 2D Teich 55.7 % LV Ejection Fraction MOD 2C 55.4 % LV Ejection Fraction 2C AL 54.0 % LA Diameter 3.5 cm LA Width 3.4 cm LA Height 5.5 cm RA Width 4.2 cm RA Height 5.6 cm Aorta at Sinotubular Diameter 3.2 cm FINDINGS Left Ventricle Mildly increased left ventricular cavity size. Mildly decreased left ventricular systolic function. Left ventricular ejection fraction is estimated at 50 %. Mild anterior and septal wall hypokinesis. Right Ventricle Right Atrium Left Atrium Mitral Valve Aortic Valve Tricuspid Valve Pulmonic Valve Pericardium Aorta CONCLUSIONS Limited echo to assess LV function 1-Mildly increased left ventricular cavity size. Mildly decreased left ventricular systolic function. Left ventricular ejection fraction is estimated at 50 %. Mild anterior and septal wall hypokinesis. 2-There is no pericardial effusion. 3-When compared with the prior echocardiogram dated January 23, 2021 this is a limited echo. She is noted to have mildly reduced left ventricle function from 63% to 50% now. Kash Cunningham MD (Electronically Signed) Final Date: 17 February 2021 15:24 S
[2021-02-17 10:53] LABS: Glucose Point of Care 108 mg/dL (70-110)
--- NOTE | 2021-02-17 11:03 | PC.NURSE ---
Dr. Cunningham saw patient and states that he isn't going to cath patient and that she could eat. He states that she would discharge tomorrow. Called Dr. Hand and updated her of Dr. Cunningham conversation and obtained a verbal order for a cardiac consistent carb diet.
--- NOTE | 2021-02-17 12:45 | PC.PHAR ---
pt states she takes care of her own medications-pt brought in medication bottles-pt states she thinks she has been taking diltiazem er 180mg daily along with the 60mg bid-pt brought in both medication bottles-pt was discharged on 02/11/21 and discahrge papers have the 180mg dced-pt states her warfarin has been on hold and states she hasnt been taking it-pt states she has been taking her lasix pts discharge papers from 02/11/21 have lasix on hold till 02/18/21 pt states she has been taking and didnt know it was on hold-pt states its getting hard to keep her meds straight-notes are made in the pharmacy comments
[2021-02-17 17:20] LABS: Glucose Point of Care 94 mg/dL (70-110)
[2021-02-17] MEDS: trazodone 50 mg Tablet PO (21:27)
[2021-02-18] VITALS: BP 109/76; PULSE 80; RESP 18; TEMP 36.4; O2SAT 93
--- NOTE | 2021-02-18 03:38 | PC.NURSE ---
Around 0030: Patient c/o shortness of breath. Upon arrival to patients room, patient stated that she wanted me to read her computer so that I could see her facebook post. I assessed the patient and asked her about her c/o of being short of breath. The patient stated Oh it went away I guess, read my come computer about my son. I told the patient that I did not feel comfortable reading her social media and to call me if she had and further health concerns. Around 0300: Patient c/o sore throat. Brought patient salt water to gargle. Patient stated that she didn't want me to leave d/t concerns of choking on water. Patient stated When I get done with this I want you to sit with me so I can talk to you for a while . I told the patient that I would stay with her to make sure she didn't need my assistance but I needed to check on my other patients after she was finished gargling as part of my nursing responsibilities for hourly rounding. Patient stated No one has time to listen to me, my can't hear and I have to repeat everything to him. I thought if I came to the hospital, I could get someone to sit with me and listen and be my friend. I thought that you would be my friend, would you be my friend after I leave the hospital. 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 Patient verbalized understanding of teaching but needed reinforcement of all teaching.
[2021-02-18 04:00] VITALS: BP 107/81; PULSE 95; RESP 18; TEMP 36.4; O2SAT 94
[2021-02-18 06:00] VITALS: PULSE 96
--- NOTE | 2021-02-18 07:46 | PC.NURSE ---
Upon entering room to perform assessment patient was hysterically crying. When asked what was wrong she couldn't give an answer. Assessment was performed and she stopped crying. Asked if she needed to use the restroom while nurse was in the room for safety issues. She got up and ambulated to the bedside commode she briefly used the walker. She then walked to the sink and washed her hands and ambulated back to the bed. Left patient sitting on bedside with table and needs in reach. She was eating breakfast as nurse left the room. Patient was then heard hysterically crying again down the buck. When entering the room and asked what was wrong she stated, I forgot to ask you open my milk. Educated patient that if she doesn't hit call light and ask for help then we won't know that she needs help. Patient verbalized an understanding and showed nurse where her call light was, on the bed within reach.
[2021-02-18 08:11] VITALS: BP 114/65; PULSE 113; RESP 18; TEMP 36.4; O2SAT 94
[2021-02-18] MEDS: sotalol 80 mg Tablet 120 MG PO (09:19)
[2021-02-18] MEDS: levothyroxine 150 mcg Tablet PO (09:19)
[2021-02-18] MEDS: fenofibrate 145 mg Tablet PO (09:19)
[2021-02-18] MEDS: pantoprazole DR 40 mg Tablet PO (09:19)
[2021-02-18] MEDS: dilTIAZem ER (12HR) 60 mg Capsule PO (09:19)
[2021-02-18] MEDS: FUROsemide 10 mg/mL SDV 4mL 40 MG IVP (09:20)
[2021-02-18] MEDS: metformin 500 mg Tablet 750 MG PO (09:20)
[2021-02-18 10:28] LABS: Glucose Point of Care 148 mg/dL (70-110)
[2021-02-18 12:00] VITALS: BP 94/71; PULSE 88; RESP 18; TEMP 36.7; O2SAT 94
[2021-02-18 12:59] LABS: Glucose Point of Care 85 mg/dL (70-110)
--- NOTE | 2021-02-18 14:28 | PC.NURSE ---
Verbal order from Dr. Garcia to cancel labs. Lab notified.
--- NOTE | 2021-02-18 14:51 | PM.DCS ---
Discharge Providers Date of Admission: 02/17/21 04:20 Date of Discharge: February 18, 2021 Attending Provider at Admission: Zuleyka Hand MD Attending Provider at Discharge: Hosea Garcia MD Primary Care Provider: Yulia Hunter Diagnoses at Discharge Discharge Diagnosis (1) NSTEMI (non-ST elevated myocardial infarction): Status: Acute (2) Diastolic CHF: Status: Acute Qualifiers: Heart failure chronicity: chronic Qualified Code(s): I50.32 - Chronic diastolic (congestive) heart failure (3) Atrial fibrillation with RVR: Status: Acute (4) Essential hypertension: Status: Acute (5) Hematoma of thigh: Status: Acute Qualifiers: Encounter type: initial encounter Laterality: left Qualified Code(s): S70.12XA - Contusion of left thigh, initial encounter (6) Anemia: Status: Acute Qualifiers: Anemia type: iron deficiency Iron deficiency anemia type: other iron deficiency Qualified Code(s): D50.8 - Other iron deficiency anemias Reason for Visit Reason for Visit: WEAKNESS Hospital Course Hospital Course This is a 60-year-old female with a past medical history of diastolic CHF, CAD status post CABG, with most recent history of stenting 02/26/2020, atrial fibrillation, history of supratherapeutic INR with thigh hematoma leading to anemia, needing admissions between February 08 to February 11, recent COVID-19 infection, recent ER visit for heat exhaustion, currently her Plavix was discontinued, Coumadin was held since 725, who presents to [facility] due to complaints of generalized weakness and intermittent chest pain. For patient's chest pain, she was admitted to [facility] for NSTEMI, elevated troponins, 6-hour troponin to 14.7, 6-hour delta 13.7, no new EKG changes, echocardiogram showed mildly reduced ejection fraction to 50%, with mild anterior and septal wall hypokinesis, cardiology was consulted, who recommended medical management, with continuing to hold Coumadin and Plavix given her anemia and her left thigh hematoma, with outpatient follow-up for consideration of stress testing. Decision to resume anticoagulation and antiplatelet therapy will be made once patient follows up with cardiology as outpatient, hematoma is stable, hemoglobin is stable. Patient will follow up with cardiology in the next week. Patient was advised short of recurrent chest pain, the emergency room. For patient's left thigh hematoma, hematoma on sacrum, and anemia, patient did not have any hemodynamic compromise, had physical therapy as inpatient, ambulating without significant symptomatology, hemoglobin remained stable between 9-10. Hemoglobin on discharge was 10.4. Patient was advised to continue to hold Plavix and Coumadin until she follows up with cardiology. Follow-up with her general physician tomorrow for recheck hemoglobin. Patient was advised to monitor for compartment syndrome, if she have to have sudden onset of pain or tenderness in her left thigh, to come back to the emergency room immediately. In addition she was advised to monitor for signs for infection of her left thigh hematoma, including overlying erythema, warmth, tenderness, feeling ill if so comes back to emergency room. Physical Exam Const: COMMON NORMALS: no acute distress and patient oriented x3 Resp: COMMON NORMALS: normal respiratory effort, No retractions, No use of accessory muscles and clear to auscultation bilaterally AUSCULTATION: clear to auscultation bilaterally Cardio: COMMON NORMALS: regular rate, S1 normal heart sound present and S2 normal heart sound present RATE: regular rate RHYTHM: abnormal rhythm HEART SOUNDS: S1 normal heart sound present and S2 normal heart sound present GI: COMMON NORMALS: Normal to inspection, nondistended, normoactive bowel sounds present, Soft to palpation, non-tender, No hepatosplenomegaly present, no masses and no bruits PALPATION: Yes Soft to palpation and Yes No hepatosplenomegaly present Extremity: COMMON NORMALS: no pedal edema NARRATIVE EXTREMITY EXAM: Hematoma, left leg, left inner thigh, left outer thigh, along lower sacrum Neuro: COMMON NORMALS: patient oriented x3 Psych: COMMON NORMALS: mental status grossly normal Discharge Data Data Completed and Pending: Completed Studies During Hospitalization Category Date Time Status XR chest 1V [place] [id number] Stat Exams 02/17/21 01:00 Completed CV. echo limited [id number] Routine Ultrasound 02/17/21 10:35 Completed Pending at discharge Category Date Time Status Blood Culture Sta t Lab 02/16/21 23:36 Results Labs from last 24 hours 02/18/21 02/18/21 02/18/21 13:10 13:10 12:18 WBC Cancelled Corrected WBC Cancelled RBC Cancelled Hgb Cancelled Hct Cancelled MCV Cancelled MCH Cancelled MCHC Cancelled RDW Cancelled Plt Count Cancelled MPV Cancelled Gran % Cancelled Neut % (Auto) Cancelled Lymph % (Auto) Cancelled Jefferson % (Auto) Cancelled Eos % (Auto) Cancelled Baso % (Auto) Cancelled Neut # (Auto) Cancelled Lymph # (Auto) Cancelled Jefferson # (Auto) Cancelled Eos # (Auto) Cancelled Baso # (Auto) Cancelled Absolute Gran (aut o) Cancelled Nucleated RBC % (a uto) Cancelled Nucleated RBCs # Cancelled Sodium Cancelled Potassium Cancelled Chloride Cancelled Carbon Dioxide Cancelled Anion Gap Cancelled BUN Cancelled Creatinine Cancelled GFR Calculation Cancelled Glucose Cancelled POC Glucose 85 Calculated Osmolal ity Cancelled Calcium Cancelled Total Bilirubin Cancelled AST Cancelled ALT Cancelled Alkaline Phosphata se Cancelled Total Protein Cancelled Albumin Cancelled Globulin Cancelled 02/18/21 02/17/21 10:18 16:25 WBC Corrected WBC RBC Hgb Hct MCV MCH MCHC RDW Plt Count MPV Gran % Neut % (Auto) Lymph % (Auto) Jefferson % (Auto) Eos % (Auto) Baso % (Auto) Neut # (Auto) Lymph # (Auto) Jefferson # (Auto) Eos # (Auto) Baso # (Auto) Absolute Gran (aut o) Nucleated RBC % (a uto) Nucleated RBCs # Sodium Potassium Chloride Carbon Dioxide Anion Gap BUN Creatinine GFR Calculation Glucose POC Glucose 148 H 94 Calculated Osmolal ity Calcium Total Bilirubin AST ALT Alkaline Phosphata se Total Protein Albumin Globulin Vitals: Last Vital Signs Temp 98.1 F 02/18/21 12:00 Pulse 88 02/18/21 12:00 Resp 18 02/18/21 12:00 BP 94/71 02/18/21 12:00 Pulse Ox 94 02/18/21 12:00 Discharge Plan Discharge Patient Disposition: Home Condition: Stable Prescriptions: Continued fenofibrate nanocrystallized 145 mg tablet 145 mg PO DAILY RF: 0 omega-3 fatty acids [Fish Oil Concentrate] 1,000 mg capsule 1,000 mg PO BID RF: 0 sotalol 120 mg tablet 120 mg PO BID Qty: 180 RF: 3 levothyroxine [Euthyrox] 150 mcg tablet 150 mcg PO DAILY RF: 0 metformin 750 mg tablet extended release 24 hr 750 mg PO BID RF: 0 potassium chloride 10 mEq tablet extended release 10 meq PO DAILY RF: 0 clobetasol 0.05 % ointment 1 applic TOPICAL BID PRN (Reason: unknown) RF: 0 zinc gluconate 50 mg Tablet 50 mg PO DAILY Qty: 14 RF: 0 trazodone 50 mg tablet 50 mg PO BEDTIME RF: 0 diphenhydramine HCl [Benadryl Allergy] 25 mg Tablet 25 mg PO BEDTIME PRN (Reason: Sleep) RF: 0 fluticasone propion-salmeterol [Advair Diskus] 250-50 mcg/dose blister with device 1 puff inhalation BID RF: 0 diltiazem HCl 60 mg capsule,extended release 12 hr 60 mg PO BID Qty: 60 RF: 0 pantoprazole 40 mg Tablet,Delayed Release (Dr/Ec) 40 mg PO BID Qty: 60 RF: 0 Tessalon Perles 100 mg Capsule 100 mg PO Q8H PRN (Reason: Cough) RF: 0 multivitamin Tablet 1 tab PO DAILY RF: 0 Changed furosemide 20 mg tablet 40 mg PO DAILY 30 Days Qty: 30 RF: 0 Discontinued warfarin 4 mg tablet 4 mg PO BEDTIME RF: 0 Hold Instructions: Resume on 02/18/21. warfarin 5 mg tablet 5 mg PO BEDTIME RF: 0 Hold Instructions: Resume on 02/18/21. cefdinir 300 mg Capsule 300 mg PO BID Qty: 12 RF: 0 clarithromycin 250 mg tablet 1,000 mg PO ONCE RF: 0 diltiazem HCl 180 mg capsule,extended release 24hr See Rx Instructions .ROUTE .COMPLEX RF: 0 Discharge Orders: Discharge Order (Routine); Ordered 02/18/21 Ordered By: Hosea Garcia Referrals: Donal Syed DO [Physician] - 1-3 days (Please call [phone] to schedule appointment with Dr Syed to establish primary care if you decide to switch primary care providers. ) Yulia Hunter, SEED CLEANER OPERATOR [Primary Care Provider] - Kash Cunningham MD [Physician] - 1 week Discharge Diet: Cardiac Discharge Activity: Resume usual activity Patient Instructions: Opioid Safety Activity Restrictions/Additional Instructions: -Recheck hemoglobin tomorrow at primary care physician's office, hemoglobin 10.4 -Continue to monitor hematoma site, if you develop significant worsening in pain, or you develop fevers or feel ill come to the emergency room -Continue to hold Coumadin, aspirin, Plavix -Follow-up with cardiology in 1 week for consideration of stress testing -If you have chest pain please come back to emergency room -If you strokelike symptoms, go to the emergency room Discharge Attestations Time Spent in Discharge Care*: less than 30 min Status at Discharge: Cognitive status at discharge: cognitively intact, Behavioral status at discharge: cooperative, Quality Metrics Clinical Quality Measures During this hospital stay, did patient experience: None Coding Level of Care Code Acute g FW DC note Diagnoses NSTEMI (non-ST elevated myocardial infarction) I21.4 Diastolic CHF I50.32 Heart failure chronicity: chronic Atrial fibrillation with RVR I48.91 Essential hypertension I10 Hematoma of thigh S70.12XA Encounter type: initial encounter Laterality: left Anemia D50.8 Anemia type: iron deficiency Iron deficiency anemia type: other iron deficiency
--- NOTE | 2021-02-18 14:56 | PC.NURSE ---
Patient refused to wear tele today.
[2021-02-18 14:57] VITALS: BP 94/71; PULSE 88; RESP 18; TEMP 36.7; O2SAT 94
--- NOTE | 2021-02-18 17:20 | PM.PN ---
Subjective Subjective: Interval history: Denies any complaint denies chest pain left leg is also improving, hemoglobin is stable. Vitals/I&O/Wt Last Vital Signs Temp 98.1 F 02/18/21 14:57 Pulse 88 02/18/21 14:57 Resp 18 02/18/21 14:57 BP 94/71 02/18/21 14:57 Pulse Ox 94 02/18/21 14:57 02/18/21 02/18/21 02/18/21 06:59 14:59 22:59 Intake Total 500 / 1700 480 / 480 Output Total 875 / 3375 1100 / 1100 Balance -375 / -1675 -620 / -620 Weight last 48 hrs Weight 225 lb Physical Exam Narrative: EXAM NARRATIVE: GENERAL: Patient is alert, awake and oriented x3. NECK: No jugular vein distension. HEENT: No cyanosis. No icterus. No pallor. HEART: Regular S1 and S2. No murmur, rub or gallop. LUNGS: Clear to auscultate bilaterally. ABDOMEN: Soft, nontender and nondistended. Positive bowel sounds. No guarding, rebound or tenderness. CENTRAL NERVOUS SYSTEM: Grossly nonfocal. EXTREMITIES: Lower extremities with 1+ edema left leg with large thigh and leg bruising. Data : 02/16/21 23:33 02/16/21 23:33 Micro: Microbiology 02/16/21 23:36 Blood Culture - Preliminary Blood NEGATIVE TO DATE 02/16/21 23:33 Blood Culture - Preliminary Blood NEGATIVE TO DATE A&P Assessment and plan (1) NSTEMI (non-ST elevated myocardial infarction): Patient may have recent myocardial infarction currently she is stable currently she denies any symptoms such as chest pain out of usual shortness of breath. She has multivessel coronary artery disease. Since she is stable but has history of recent large hematoma bleeding anemia cannot take anticoagulation and antiplatelet for now we will treat her medically. I will optimize medicine and discharge her tomorrow. As an outpatient once bleeding hematoma resolved and she noted to tolerate clopidogrel may will opt for possible stress test based upon ischemia whether it is mild/moderate or large for the plan for invasive strategy will be devised I have detailed discussion with the patient regarding treatment. She is in agreement with it. We will continue medical management for now due to large bleeding hematoma and hemorrhage problem with the patient. She is on warfarin and Plavix. At the moment both are on hold. For now we will defer left heart cath as she has responded to medical management. As an outpatient when she started tolerating antiplatelet and blood thinner may will discuss further investigation most likely stress test. Status: Acute (2) Diastolic CHF: Patient is well compensated continue current regimen Status: Acute Qualifiers: Heart failure chronicity: chronic Qualified Code(s): I50.32 - Chronic diastolic (congestive) heart failure (3) Atrial fibrillation with RVR: Well-controlled not on anticoagulation due to recent large hematoma/bleed and anemia. Continue to hold anticoagulation Status: Acute (4) Essential hypertension: Well-controlled continue medicine Status: Acute (5) Hematoma of thigh: Continue to resolve continue holding anticoagulation Status: Acute Qualifiers: Encounter type: initial encounter Laterality: left Qualified Code(s): S70.12XA - Contusion of left thigh, initial encounter (6) Anemia: Appear to be stable. Continue holding anticoagulation Status: Acute Qualifiers: Anemia type: iron deficiency Iron deficiency anemia type: other iron deficiency Qualified Code(s): D50.8 - Other iron deficiency anemias Attestations Medical Necessity Statement*: From cardiovascular perspective patient is stable and can be discharged home. Follow-up with cardiology in 7 days with Mariana Marina cardiology nurse practitioner and Dr. Polanco in 4 weeks. Coding Level of Care Code Established Pt Acute [employer] for Jimmie Arias Patient Type Established History Detailed Exam Detailed Medical Decision Making Moderate Complexity Diagnoses NSTEMI (non-ST elevated myocardial infarction) I21.4 Diastolic CHF I50.32 Heart failure chronicity: chronic Atrial fibrillation with RVR I48.91 Essential hypertension I10 Hematoma of thigh S70.12XA Encounter type: initial encounter Laterality: left Anemia D50.8 Anemia type: iron deficiency Iron deficiency anemia type: other iron deficiency
== END 2021-02-18 15:59 | disposition home or self-care (01) ==
LOC: ER 02-17 03:29 → CSU 02-17 06:15
PROVIDERS: Nurse Practitioner Family; Admitting Provider Student in an Organized Health Care Education/Training Program; Emergency Provider Emergency Medicine; PCP Nurse Practitioner Family; Visit Provider Family Medicine
DX: I21.4 Non-ST elevation (NSTEMI) myocardial infarction (principal); I11.0 Hypertensive heart disease with heart failure; I50.32 Chronic diastolic (congestive) heart failure; I48.91 Unspecified atrial fibrillation; S70.12XA Contusion of left thigh, initial encounter; D50.8 Other iron deficiency anemias; I25.10 Atherosclerotic heart disease of native coronary artery without angina pectoris; Z95.1 Presence of aortocoronary bypass graft; Z95.5 Presence of coronary angioplasty implant and graft; Z86.16 Personal history of COVID-19; Z79.84 Long term (current) use of oral hypoglycemic drugs; Z79.01 Long term (current) use of anticoagulants; Z86.718 Personal history of other venous thrombosis and embolism
CPT/HCPCS: 36415; 36416; 71045; 80053; 81001; 82550; 82962; 83605; 83880; 84484; 85025; 85610; 87040; 87426; 93005; 93308; 96361; 96374; 99285; G0378; J1940

== ENCOUNTER 2021-02-23 13:33 | Outpatient (CLI) | payer OTHER, SELFPAY ==
[2021-02-23 14:25] LABS: INR 1.04 (0.8-1.2)
[2021-02-23 14:31] LABS: Anion Gap 16.6 (5-19); Blood Urea Nitrogen 12 mg/dL (8-23); Calcium 8.7 mg/dL (8.5-10.5); Carbon Dioxide 27 mmol/L (22-29); Chloride 100 mmol/L (98-107); Glucose 95 mg/dL (65-115); Osmolality Calculated 290 mOsm/kg (285-295); Potassium 3.6 mmol/L (3.5-5.1); Sodium 140 mmol/L (136-145)
== END 2021-02-23 13:34 | disposition home or self-care (01) ==
LOC: LAB 13:44
PROVIDERS: PCP Nurse Practitioner Family; Visit Provider Family Medicine
DX: I50.30 Unspecified diastolic (congestive) heart failure (principal)
CPT/HCPCS: 80048; 85610

== ENCOUNTER 2021-02-27 01:45 | Emergency (ER) | payer OTHER, SELFPAY ==
[2021-02-27 01:58] VITALS: BP 107/80; PULSE 126; RESP 28; TEMP 36.6; O2SAT 95; BMI 39.4
--- NOTE | 2021-02-27 02:05 | ECG_ITS ---
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 Measurements Intervals [place] Rate: 115 P: NM: QRS: 19 QRSD: 90 T: 241 QT: 309 QTc: 428 Interpretive Statements ATRIAL FIBRILLATION WITH RAPID VENTRICULAR RESPONSE NONSPECIFIC ST & T-WAVE ABNORMALITY Compared to ECG 02/17/2021 03:14:31 T-wave abnormality now present Atrial abnormality no longer present Myocardial infarct finding no longer present Electronically Signed On 03-01-2021 7:45:30 CDT by Norah Talbot M.D. [email or web address]
--- NOTE | 2021-02-27 02:15 | W.ED.GENADLT ---
HPI - General Adult General: Chief complaint: General Medical Stated complaint: HIGH HEART RATE Time Seen by Provider: 02/27/21 01:55 Source: patient and EMS Mode of arrival: EMS Limitations: no limitations History of Present Illness: HPI narrative: 61-year-old female states she has anxiety. She states she started a new medicine today she states she had felt more anxious tonight. Patient is also in A. fib with RVR she states that her heart rate is always fast. She denies any vomiting or diarrhea. She denies any chest pain. Associated symptoms: Reports palpitations; Deny chest pain, dyspnea, headache(s), nausea, rash or vomiting Review of Systems Const: Denies: fever(s), chills, body aches or change in appetite Eyes: Denies: blurry vision or eye discomfort ENMT: Denies: throat pain or dental pain Card: Reports: palpitations and irregular heart rhythm; Denies: chest pain Resp: Denies: dyspnea GI: Denies: abdominal pain, nausea, vomiting or diarrhea : Denies: dysuria Musc: Denies: neck pain or back pain Skin/Breast: Denies: rash Neuro: Denies: headache(s) Psych: Reports: anxiety; Denies: depression Flavio/Lymph: Denies: easy bruising All/Imm: Denies: urticaria PFSH ED PFSH: Medical History (Updated 02/27/21 @ 05:28 by Cherelle Warner MD) ASHD (arteriosclerotic heart disease) Atrial fibrillation CHF (congestive heart failure) COVID-19 January Dyslipidemia Essential hypertension Hx of deep venous thrombosis Tricuspid incompetence Type 2 diabetes mellitus Surgical History History of coronary artery bypass graft 2004 History of coronary artery stent placement History of total vaginal hysterectomy History of tubal ligation Status post colonoscopy Family History Other CAD (coronary artery disease) Diabetes Hypertension Social History Smoking and tobacco status: never smoked Alcohol intake: current Alcohol intake frequency: holidays/special occasions only Household members: significant other Marital status: Single History of recent travel: No Physical Exam Const: COMMON NORMALS: no acute distress, patient oriented x3 and healthy appearing GENERAL APPEARANCE: anxious HENMT: COMMON NORMALS: normocephalic and atraumatic HEAD & SCALP: normocephalic and atraumatic Eye: COMMON NORMALS: Equal, round and reactive pupils present and EOMs intact bilaterally PUPIL: Yes Equal, round and reactive pupils present Neck/C-Spine: COMMON NORMALS: full ROM and supple Chest: COMMONS NORMALS: normal inspection of the chest and normal palpation of entire chest wall Resp: COMMON NORMALS: normal respiratory effort, No retractions, No use of accessory muscles and clear to auscultation bilaterally AUSCULTATION: clear to auscultation bilaterally Cardio: COMMON NORMALS: No murmurs present (Cardio) RATE: tachycardic RHYTHM: abnormal rhythm irregularly irregular GI: COMMON NORMALS: Normal to inspection, nondistended, normoactive bowel sounds present, Soft to palpation, non-tender and no masses PALPATION: Yes Soft to palpation Extremity: COMMON NORMALS: normal to inspection and full ROM Neuro: COMMON NORMALS: patient oriented x3, moves all extremities and no focal motor deficits Psych: COMMON NORMALS: mental status grossly normal, Normal thought process present and cooperative THOUGHT PROCESS: Normal thought process present Skin: COMMON NORMALS: no rashes or lesions noted and no wounds GENERAL SKIN EXAM: no rashes or lesions noted Course Vital Signs: Vital signs: Vital Signs Temperature 97.8 F 02/27/21 01:58 Pulse Rate 98 02/27/21 04:17 Respiratory Rate 14 02/27/21 04:17 Blood Pressure 114/70 02/27/21 04:17 Pulse Oximetry 93 02/27/21 04:17 MDM - General Adult MDM Narrative: Medical decision making narrative: Patient presents with Carlos johnson with RVR. She also has some anxiety. I strongly recommended admission as I had to give her multiple medicines to get her heart rate under 100. She states that she feels improved and she would [facility] just [facility]. Informed her that I recommended admission but she has medical decision made capacity and would like to go home at this point. I believe patient is stable for discharge her heart rate is now less than 100. She is to follow-up with PCP and return if worsening. Lab Data: Labs: Lab Results 02/27/21 02/27/2102/27/21 Range/Units 02:30 02:30 02:30 WBC 5.4 (4.0-10.0) 10^3/ uL RBC 3.51 L (4.1-5.3) 10^6/u L Hgb 10.2 L (11.5-15.3) g/dL Hct 34.1 L (37.0-47.0) % MCV 97.2 (81-99) fL MCH 29.1 (28.0-34.0) pg MCHC 29.9 L (30.0-36.0) g/dL RDW 19.8 H (12.1-15.1) % Plt Count 289 (130-400) 10^3/c mm MPV 9.6 (7.4-10.4) fL Neut % (Auto) 62.8 % Lymph % (Auto) 20.1 % Trigg % (Auto) 14.7 % Eos % (Auto) 1.1 % Baso % (Auto) 0.9 % Neut # (Auto) 3.36 (1.8-7.7) 10^3/u L Lymph # (Auto) 1.1 (0.8-4.8) 10^3/u L Trigg # (Auto) 0.8 (0.2-0.9) 10^3/u L Eos # (Auto) 0.1 (0.0-0.8) 10^3/u L Baso # (Auto) 0.1 (0.0-0.1) 10^3/u L Nucleated RBC % (a uto) 0 % Nucleated RBCs # 0.0 /100WBC Sodium 139 (136-145) mmol/L Potassium 3.3 L (3.5-5.1) mmol/L Chloride 97 L (98-107) mmol/L Carbon Dioxide 22 (22-29) mmol/L Anion Gap 23.3 H (5-19) BUN 9 (8-23) mg/dL Creatinine 0.5 (0.5-0.9) mg/dL GFR Calculation 125.0 (90-130) mL/min Glucose 76 (65-115) mg/dL Calculated Osmolal ity 285 (285-295) mOsm/k g Calcium 8.0 L (8.5-10.5) mg/dL Total Bilirubin 1.4 H (0.15-1.2) mg/dL AST 27 (0-32) U/L ALT 31 (0-33) U/L Alkaline Phosphata se 63 (35-105) IU/L NT-Pro-B Natriuret Pep 1399 H (0-125) pg/mL Total Protein 5.7 L (6.6-8.7) g/dL Albumin 3.2 L (3.5-5.2) g/dL Globulin 2.5 (1.3-4.6) g/dL EKG Data^: EKG 1: Attestation: I personally reviewed and interpreted this EKG as follows: EKG interpretation date: 02/27/21 EKG interpretation time: 02:13 Interpretation: afib with rvr hr [address] or t wave abnormalities qrs 90 qtc 377 Discharge Plan Discharge Patient Disposition: Home Clinical Impression: Atrial fibrillation Qualifiers: Atrial fibrillation type: unspecified Qualified Code(s): I48.91 - Unspecified atrial fibrillation Condition: Stable Prescriptions: No Action fenofibrate nanocrystallized 145 mg tablet 145 mg PO DAILY RF: 0 omega-3 fatty acids [Fish Oil Concentrate] 1,000 mg capsule 1,000 mg PO BID RF: 0 sotalol 120 mg tablet 120 mg PO BID Qty: 180 RF: 3 levothyroxine [Euthyrox] 150 mcg tablet 150 mcg PO DAILY RF: 0 metformin 750 mg tablet extended release 24 hr 750 mg PO BID RF: 0 potassium chloride 10 mEq tablet extended release 10 meq PO DAILY RF: 0 clobetasol 0.05 % ointment 1 applic TOPICAL BID PRN (Reason: unknown) RF: 0 zinc gluconate 50 mg Tablet 50 mg PO DAILY Qty: 14 RF: 0 trazodone 50 mg tablet 50 mg PO BEDTIME RF: 0 diphenhydramine HCl [Benadryl Allergy] 25 mg Tablet 25 mg PO BEDTIME PRN (Reason: Sleep) RF: 0 fluticasone propion-salmeterol [Advair Diskus] 250-50 mcg/dose blister with device 1 puff inhalation BID RF: 0 diltiazem HCl 60 mg capsule,extended release 12 hr 60 mg PO BID Qty: 60 RF: 0 pantoprazole 40 mg Tablet,Delayed Release (Dr/Ec) 40 mg PO BID Qty: 60 RF: 0 Tessalon Perles 100 mg Capsule 100 mg PO Q8H PRN (Reason: Cough) RF: 0 multivitamin Tablet 1 tab PO DAILY RF: 0 furosemide 20 mg tablet 40 mg PO DAILY 30 Days Qty: 30 RF: 0 Discharge Orders: Discharge ED (Routine); Ordered 02/27/21 Ordered By: Cherelle Warner Referrals: Yaw Sinclair MD [Primary Care Provider] - Discharge Diet: Advance as tolerated Discharge Activity: Resume usual activity Patient Instructions: Atrial Fibrillation (ED) Coding Level of Care Code ED Community Recreation Programmer for Chg Fwd Exam Comprehensive
[2021-02-27 02:39] LABS: Basophils # 0.1 10^3/uL (0.0-0.1); Basophils % 0.9 %; Eosinophils # 0.1 10^3/uL (0.0-0.8); Eosinophils % 1.1 %; Hematocrit 34.1 % (37.0-47.0); Hemoglobin 10.2 g/dL (11.5-15.3); Lymphocytes # 1.1 10^3/uL (0.8-4.8); Lymphocytes % 20.1 %; Mean Corpuscular HGB Conc 29.9 g/dL (30.0-36.0); Mean Corpuscular Hemoglobin 29.1 pg (28.0-34.0); Mean Corpuscular Volume 97.2 fL (81-99); Mean Platelet Volume 9.6 fL (7.4-10.4); Monocytes # 0.8 10^3/uL (0.2-0.9); Monocytes % 14.7 %; Neutrophils # 3.36 10^3/uL (1.8-7.7); Neutrophils % 62.8 %; Nucleated Red Blood Cells % 0 %; Platelet Count 289 10^3/cmm (130-400); Red Blood Count 3.51 10^6/uL (4.1-5.3); Red Cell Distribution Width 19.8 % (12.1-15.1); White Blood Count 5.4 10^3/uL (4.0-10.0)
[2021-02-27 02:47] VITALS: BP 101/70; PULSE 116; RESP 32; O2SAT 100
[2021-02-27 03:00] LABS: Alanine Aminotransferase 31 U/L (0-33); Albumin Level 3.2 g/dL (3.5-5.2); Alkaline Phosphatase 63 IU/L (35-105); Anion Gap 23.3 (5-19); Aspartate Amino Transferase 27 U/L (0-32); Blood Urea Nitrogen 9 mg/dL (8-23); Carbon Dioxide 22 mmol/L (22-29); Chloride 97 mmol/L (98-107); Globulin 2.5 g/dL (1.3-4.6); Glucose 76 mg/dL (65-115); Osmolality Calculated 285 mOsm/kg (285-295); Potassium 3.3 mmol/L (3.5-5.1); Sodium 139 mmol/L (136-145); Total Bilirubin 1.4 mg/dL (0.15-1.2); Total Protein 5.7 g/dL (6.6-8.7)
--- NOTE | 2021-02-27 03:09 | XRR_ITS ---
PROCEDURE INFORMATION: Exam: XR Chest Exam date and time: 02/27/2021 3:09 AM Age: 61 years old Clinical indication: Dyspnea; Additional info: SOB TECHNIQUE: Imaging protocol: XR of the chest. Views: 1 view. COMPARISON: CR (CHEST, ) 02/17/2021 1:22 AM FINDINGS: Lungs: There is mild interstitial scarring in the left base. No acute pulmonary infiltrates are seen. Pleural spaces: Unremarkable. No pleural effusion. No pneumothorax. Heart/Mediastinum: The heart is not enlarged. The patient has undergone coronary bypass surgery. Bones/joints: Unremarkable. XR/XR chest 1V portable [id number] IMPRESSION: No acute abnormalities are seen in the chest.
[2021-02-27] MEDS: sodium chloride 0.9% 500 ML 999 ML IV (03:23)
[2021-02-27 03:40] LABS: NT Pro B Type Natriuretic Pept 1399 pg/mL (0-125)
[2021-02-27] MEDS: LORazepam 2 mg/mL INJ 1 mL 0.5 MG IVP (03:52)
[2021-02-27 03:53] VITALS: BP 112/69; PULSE 109; RESP 16; O2SAT 96
[2021-02-27 04:17] VITALS: BP 114/70; PULSE 98; RESP 14; O2SAT 93
[2021-02-27] MEDS: labetalol 5 mg/mL SDV 20mL IVP (04:18)
[2021-02-27 05:41] VITALS: BP 115/69; PULSE 99; RESP 21; O2SAT 94
== END 2021-02-27 05:43 | disposition home or self-care (01) ==
PROVIDERS: Emergency Provider Emergency Medicine; PCP Family Medicine
DX: I48.91 Unspecified atrial fibrillation (principal); I25.10 Atherosclerotic heart disease of native coronary artery without angina pectoris; I11.0 Hypertensive heart disease with heart failure; I50.9 Heart failure, unspecified; E78.5 Hyperlipidemia, unspecified; E11.9 Type 2 diabetes mellitus without complications; Z79.84 Long term (current) use of oral hypoglycemic drugs; Z86.16 Personal history of COVID-19; Z95.5 Presence of coronary angioplasty implant and graft
CPT/HCPCS: 71045; 80053; 83880; 85025; 93005; 96374; 96375; 96376; 99284; J2060; J3490; J7040

== ENCOUNTER 2021-02-27 17:21 | Inpatient (IN) | payer OTHER, SELFPAY ==
[2021-02-27 17:40] VITALS: BP 122/73; PULSE 137; RESP 18; TEMP 36.7; O2SAT 95; BMI 37.8
--- NOTE | 2021-02-27 19:02 | PC.NURSE ---
Report from GIANNA Escalante
[2021-02-27] MEDS: cetylpyridinium Lozenge 1 EACH MUCOUS MEM (19:09)
--- NOTE | 2021-02-27 19:17 | PC.NURSE ---
Pt calm and cooperative at this time; sitter outside room.
[2021-02-27 19:30] VITALS: BP 121/78; PULSE 101; RESP 18; O2SAT 95
--- NOTE | 2021-02-27 19:34 | ED_ITS ---
HPI - General Adult General: Chief complaint: Psychiatric Symptoms Stated complaint: 96 HOUR HOLD Time Seen by Provider: 02/27/21 17:27 History of Present Illness: HPI narrative: HPI: 61yo patient w/ hx of multiple psychiatric issues including psychosis and kalia presents for psychiatric clearance. Patient placed under psych involuntary hold for episodes of delusion leading to inability to take care of self and suicidal ideation (asking boyfriend to fire a gun at her). On arrival, the patient is AAOx3 and cooperative with my evaluation. No focal complaints of chest pain, shortness of breath, palpitations, N/V, focal GI/ complaints. Currently denies SI/HI. No complaints of hallucinations. Onset: Unknown Duration: ongoing Location: home Severity: severe Review of Systems Narrative: Constitutional: No fever, no chills. HEENT: No vision changes CV: No chest pain, no palpitations PULM: No productive cough, no dyspnea. GI: No abdominal pain, no N/V/D. : No dysuria MSKEL: No muscle pain SKIN: No new rashes, no lesions. NEURO: No headache, no focal weakness. HEME: No visible bruises PSYCH: Normal mood PFSH ED PFSH: Medical History (Updated 02/27/21 @ 20:04 by Uzair Nick MD) ASHD (arteriosclerotic heart disease) Atrial fibrillation CHF (congestive heart failure) COVID-19 January Dyslipidemia Essential hypertension Hx of deep venous thrombosis Tricuspid incompetence Type 2 diabetes mellitus Surgical History History of coronary artery bypass graft 2004 History of coronary artery stent placement History of total vaginal hysterectomy History of tubal ligation Status post colonoscopy Family History Other CAD (coronary artery disease) Diabetes Hypertension Social History Smoking and tobacco status: never smoked Alcohol intake: current Alcohol intake frequency: holidays/special occasions only Household members: significant other Marital status: Single History of recent travel: No Physical Exam Narrative: EXAM NARRATIVE: Head: Atraumatic Eyes: PERRL, conjunctiva without injection, eyes tracking ENT: Mucous membrane moist NECK: Supple without lymphadenopathy LUNGS: LCTAB CV: RRR ABDOMEN: Soft, nontender EXTREMITY: Normal ROM, + edema left greater than right noted in the lower extremity, 2+ DP/PT pulses, no warmth or fluctuance over skin erythema SKIN: No rash or erythema NEURO: Awake and alert. No focal weakness PSYCH: Cooperative mood and affect. Course Vital Signs: Vital signs: Vital Signs Temperature 98.6 F 02/27/21 23:07 Pulse Rate 135 H 02/27/21 23:07 Respiratory Rate 20 H 02/27/21 23:07 Blood Pressure 137/82 02/27/21 23:07 Pulse Oximetry 95 02/27/21 23:07 MDM - General Adult MDM Narrative: Medical decision making narrative: [61]yo patient w/ hx of psych issues presenting for voluntary psychiatric clearance from [facility]. HDS, exam within normal limit Thoughts are linear and organized, and the patient has no AH/VH, or HI. Clinically the patient displays no overt toxidrome; they are well appearing, with low suspicion for toxic ingestion given history and exam. Symptoms unlikely 2/2 anemia, hypothyroidism, infection, or ICH. Prior suicide attempt by: NONE Prior Psychiatric Hospitalizations: NONE Workup: CBC BMP, Salicylate Level, Tylenol Level, CT brain Interventions: serial reassessment Lab findings: wnl CT brain: Signs of trauma or brain bleed [8:37] On reassessment, labs and workup wnl. Patient is hemodynamically stable with no acute medical complaints. Discussed findings of leg swelling and erythema with patient who reports that she is seeing primary care provider for the symptoms. Patient has had these findings since her heart attack a few months ago. Patient report that she has not found any antibiotics. Concern for cellulitis, I have offered patient antibiotics for the lower extremity swelling and erythema, patient declined this time. I have discussed with psychiatric provider Dr. Landa who agrees with plan for admission for psych unit. Disposition: Psych Lab Data: Labs: Lab Results 02/27/21 02/27/21 02/27/21 Range/Units 18:05 18:05 19:40 WBC 4.5 (4.0-10.0) 10^3/ uL RBC 3.53 L (4.1-5.3) 10^6/u L Hgb 10.4 L (11.5-15.3) g/dL Hct 34.9 L (37.0-47.0) % MCV 98.9 (81-99) fL MCH 29.5 (28.0-34.0) pg MCHC 29.8 L (30.0-36.0) g/dL RDW 19.8 H (12.1-15.1) % Plt Count 290 (130-400) 10^3/c mm MPV 9.8 (7.4-10.4) fL Neut % (Auto) 56.6 % Lymph % (Auto) 24.2 % Archuleta % (Auto) 15.5 % Eos % (Auto) 2.4 % Baso % (Auto) 1.1 % Neut # (Auto) 2.55 (1.8-7.7) 10^3/u L Lymph # (Auto) 1.1 (0.8-4.8) 10^3/u L Archuleta # (Auto) 0.7 (0.2-0.9) 10^3/u L Eos # (Auto) 0.1 (0.0-0.8) 10^3/u L Baso # (Auto) 0.1 (0.0-0.1) 10^3/u L Nucleated RBC % (a uto) 0 % Nucleated RBCs # 0.0 /100WBC Sodium (136-145) mmol/L Potassium (3.5-5.1) mmol/L Chloride (98-107) mmol/L Carbon Dioxide (22-29) mmol/L Anion Gap (5-19) BUN (8-23) mg/dL Creatinine (0.5-0.9) mg/dL GFR Calculation (90-130) mL/min Glucose (65-115) mg/dL Calculated Osmolal ity (285-295) mOsm/k g Calcium (8.5-10.5) mg/dL Total Bilirubin (0.15-1.2) mg/dL AST (0-32) U/L ALT (0-33) U/L Alkaline Phosphata se (35-105) IU/L Total Protein (6.6-8.7) g/dL Albumin (3.5-5.2) g/dL Globulin (1.3-4.6) g/dL Urine Color Dark yellow (Yellow) Urine Appearance Turbid (CLEAR) Urine pH 5 (5-7) Ur Specific Gravit y 1.030 (1.005-1.030) Urine Protein 1+ H (Negative) Urine Glucose (UA) Norm (Normal) Urine Ketones 1+ H (Negative) Urine Blood Neg (Negative) Urine Nitrate Negative (Negative) Urine Bilirubin 2+ H (Negative) Urine Urobilinogen 8 H (Negative) mg/dL Ur Leukocyte Kaylee ase Negative (Negative) Urine RBC 0-4 H (0-2) /hpf Urine WBC 0-4 H (0-5) /hpf Ur Squamous Epith Cells 0-4 H (0-5) /hpf Amorphous Sediment Not Reportable Urine Bacteria Trace (NONE) /hpf Salicylates (3-10) mg/dL Urine Opiates Scre en Negative (Negative) ng/mL Acetaminophen (10-30) ug/mL Ur Barbiturates Sc reen Negative (Negative) ng/mL Ur Phencyclidine S crn Negative (Negative) ng/mL Ur Amphetamines Sc reen Negative (Negative) ng/mL U Benzodiazepines Scrn Positive H (Negative) ng/mL Urine Cocaine Scre en Negative (Negative) ng/mL U Marijuana (THC) Screen Negative (Negative) ng/mL 02/27/21 Range/Units 19:40 WBC (4.0-10.0) 10^3/ uL RBC (4.1-5.3) 10^6/u L Hgb (11.5-15.3) g/dL Hct (37.0-47.0) % MCV (81-99) fL MCH (28.0-34.0) pg MCHC (30.0-36.0) g/dL RDW (12.1-15.1) % Plt Count (130-400) 10^3/c mm MPV (7.4-10.4) fL Neut % (Auto) % Lymph % (Auto) % Archuleta % (Auto) % Eos % (Auto) % Baso % (Auto) % Neut # (Auto) (1.8-7.7) 10^3/u L Lymph # (Auto) (0.8-4.8) 10^3/u L Archuleta # (Auto) (0.2-0.9) 10^3/u L Eos # (Auto) (0.0-0.8) 10^3/u L Baso # (Auto) (0.0-0.1) 10^3/u L Nucleated RBC % (a uto) % Nucleated RBCs # /100WBC Sodium 136 (136-145) mmol/L Potassium 3.4 L (3.5-5.1) mmol/L Chloride 99 (98-107) mmol/L Carbon Dioxide 25 (22-29) mmol/L Anion Gap 15.4 (5-19) BUN 7 L (8-23) mg/dL Creatinine 0.5 (0.5-0.9) mg/dL GFR Calculation 125.0 (90-130) mL/min Glucose 76 (65-115) mg/dL Calculated Osmolal ity 279 L (285-295) mOsm/k g Calcium 7.9 L (8.5-10.5) mg/dL Total Bilirubin 1.2 (0.15-1.2) mg/dL AST 27 (0-32) U/L ALT 29 (0-33) U/L Alkaline Phosphata se 60 (35-105) IU/L Total Protein 5.7 L (6.6-8.7) g/dL Albumin 3.2 L (3.5-5.2) g/dL Globulin 2.5 (1.3-4.6) g/dL Urine Color (Yellow) Urine Appearance (CLEAR) Urine pH (5-7) Ur Specific Gravit y (1.005-1.030) Urine Protein (Negative) Urine Glucose (UA) (Normal) Urine Ketones (Negative) Urine Blood (Negative) Urine Nitrate (Negative) Urine Bilirubin (Negative) Urine Urobilinogen (Negative) mg/dL Ur Leukocyte Kaylee ase (Negative) Urine RBC (0-2) /hpf Urine WBC (0-5) /hpf Ur Squamous Epith Cells (0-5) /hpf Amorphous Sediment Urine Bacteria (NONE) /hpf Salicylates < 0.3 L (3-10) mg/dL Urine Opiates Scre en (Negative) ng/mL Acetaminophen < 5.0 L (10-30) ug/mL Ur Barbiturates Sc reen (Negative) ng/mL Ur Phencyclidine S crn (Negative) ng/mL Ur Amphetamines Sc reen (Negative) ng/mL U Benzodiazepines Scrn (Negative) ng/mL Urine Cocaine Scre en (Negative) ng/mL U Marijuana (THC) Screen (Negative) ng/mL Discharge Plan Discharge Patient Disposition: Admitted As Inpatient Admit Provider: Justin Landa Clinical Impression: Delusion Condition: Stable Coding Level of Care Code ED Customs [employer] Border [employer] Inspector for Jimmie Arias
--- NOTE | 2021-02-27 19:37 | CTR_ITS ---
PROCEDURE INFORMATION: Exam: CT Head Without Contrast Exam date and time: 02/27/2021 7:37 PM Age: 61 years old Clinical indication: Altered mental status/memory loss; Additional info: Confusion, AMS, psych patient TECHNIQUE: Imaging protocol: Computed tomography of the head without contrast. Radiation optimization: All CT scans at this facility use at least one of these dose optimization techniques: automated exposure control; mA and/or kV adjustment per patient size (includes targeted exams where dose is matched to clinical indication); or iterative reconstruction. COMPARISON: None. RADIATION DOSE METRICS: Total DLP (mGy-cm): 847.41 FINDINGS: Brain: Mild cortical volume loss. No abnormal brain attenuation. No intracranial hemorrhage. Cerebral ventricles: No ventriculomegaly. Paranasal sinuses: Visualized sinuses are unremarkable. No fluid levels. Mastoid air cells: Visualized mastoid air cells are well aerated. Bones/joints: Unremarkable. No acute fracture. Soft tissues: Unremarkable. CT/CT head wo con* [id number] IMPRESSION: 1. No acute intracranial abnormality. Radiation Dose CTDIVOL = (mGy): DLP = 847.41 (mGy-cm)
[2021-02-27 20:09] LABS: Add Urine Culture? No; Add Urine Microscopic? YES; Bacteria Urine TRACE /hpf; Bilirubin Urine 2+ (Negative); Blood Urine Neg (Negative); Glucose Urine UA Norm (Normal); Ketones Urine 1+ (Negative); Leukocyte Esterase Urine Negative (Negative); Nitrate Urine Negative (Negative); Protein Urine 1+ (Negative); RBC Urine 0-4 /hpf (0-2); Squamous Epithelial Cell Urine 0-4 /hpf (0-5); Urine Appearance Turbid (CLEAR); Urine Color Dark Yellow (Yellow); Urobilinogen Urine 8 mg/dL (Negative); WBC Urine 0-4 /hpf (0-5); pH Urine 5 (5-7)
[2021-02-27 20:12] LABS: Basophils # 0.1 10^3/uL (0.0-0.1); Basophils % 1.1 %; Eosinophils # 0.1 10^3/uL (0.0-0.8); Eosinophils % 2.4 %; Hematocrit 34.9 % (37.0-47.0); Hemoglobin 10.4 g/dL (11.5-15.3); Lymphocytes # 1.1 10^3/uL (0.8-4.8); Lymphocytes % 24.2 %; Mean Corpuscular HGB Conc 29.8 g/dL (30.0-36.0); Mean Corpuscular Hemoglobin 29.5 pg (28.0-34.0); Mean Corpuscular Volume 98.9 fL (81-99); Mean Platelet Volume 9.8 fL (7.4-10.4); Monocytes # 0.7 10^3/uL (0.2-0.9); Monocytes % 15.5 %; Neutrophils # 2.55 10^3/uL (1.8-7.7); Neutrophils % 56.6 %; Nucleated Red Blood Cells % 0 %; Platelet Count 290 10^3/cmm (130-400); Red Blood Count 3.53 10^6/uL (4.1-5.3); Red Cell Distribution Width 19.8 % (12.1-15.1); White Blood Count 4.5 10^3/uL (4.0-10.0)
[2021-02-27 20:14] LABS: Alanine Aminotransferase 29 U/L (0-33); Albumin Level 3.2 g/dL (3.5-5.2); Alkaline Phosphatase 60 IU/L (35-105); Anion Gap 15.4 (5-19); Aspartate Amino Transferase 27 U/L (0-32); Blood Urea Nitrogen 7 mg/dL (8-23); Calcium 7.9 mg/dL (8.5-10.5); Carbon Dioxide 25 mmol/L (22-29); Chloride 99 mmol/L (98-107); Globulin 2.5 g/dL (1.3-4.6); Glucose 76 mg/dL (65-115); Osmolality Calculated 279 mOsm/kg (285-295); Potassium 3.4 mmol/L (3.5-5.1); Sodium 136 mmol/L (136-145); Total Bilirubin 1.2 mg/dL (0.15-1.2); Total Protein 5.7 g/dL (6.6-8.7)
[2021-02-27 20:17] LABS: Amphetamines Screen Urine Negative (Negative); Barbiturates Screen Urine Negative (Negative); Benzodiazepines Screen Urine Positive (Negative); Cocaine Screen Urine Negative (Negative); Opiate Screen Urine Negative (Negative); PCP Screen Urine Negative (Negative); THC Screen Urine Negative (Negative)
[2021-02-27 20:18] LABS: Acetaminophen < 5.0 ug/mL (10-30); Salicylate < 0.3 mg/dL (3-10)
[2021-02-27 22:36] VITALS: BP 124/81; PULSE 18; RESP 98; O2SAT 95
[2021-02-27 23:07] VITALS: BP 137/82; PULSE 135; RESP 20; TEMP 37; O2SAT 95
--- NOTE | 2021-02-28 01:45 | PC.NURSE ---
Skin assessment revealed erythema of most of the skin below the left knee to ankle. Both feet are edematous.
[2021-02-28 06:00] VITALS: BP 99/63; PULSE 140; RESP 22; TEMP 37.1; O2SAT 97
[2021-02-28 07:17] LABS: Glucose Point of Care 80 mg/dL (70-110)
[2021-02-28] MEDS: zinc gluconate 50 mg Tablet PO (08:13)
[2021-02-28] MEDS: multivitamin therapeutic Tablet 1 TAB PO (08:13)
[2021-02-28] MEDS: hyDROXYzine 25 mg Capsule 50 MG PO (08:14)
[2021-02-28] MEDS: doxycycline 100 mg Tablet PO (08:14)
[2021-02-28] MEDS: pantoprazole DR 40 mg Tablet PO ×2 (08:14→21:58)
[2021-02-28] MEDS: FUROsemide 40 mg Tablet PO (08:14)
[2021-02-28] MEDS: potassium chloride ER 10 mEq Tablet PO (08:14)
[2021-02-28] MEDS: metformin XR 500 MG Tablet 750 MG PO (08:14)
[2021-02-28] MEDS: levothyroxine 150 mcg Tablet PO (08:15)
[2021-02-28] MEDS: omega-3 fatty acids 1,000 mg Capsule 1000 MG PO ×2 (08:15→21:58)
[2021-02-28] MEDS: sotalol 80 mg Tablet 120 MG PO ×2 (08:15→21:57)
--- NOTE | 2021-02-28 09:14 | PC.NURSE ---
Patient at nurses station very tearful. She is jumping from multiple moods during conversations with patient. During conversation with patient she at times would be tearful, and then become angry. She dislikes certain staff members and periodically glares at them expressing that she hates them.
[2021-02-28] MEDS: dilTIAZem ER (24HR) 180 mg Capsule PO (10:26)
[2021-02-28] MEDS: fenofibrate 145 mg Tablet PO (10:26)
--- NOTE | 2021-02-28 10:49 | P.HP_ITS ---
Providers/Chief Complaint Admitting Physician: Justin Landa MD Primary Care Provider: Yaw Sinclair MD Chief Complaint: Depression with psychosis HPI NPU History of Present Illness Ivette Wheeler is a 61 year old female who presented to the [facility] ED on a 96-hour hold for acute change in behavior with delusions and requests for her boyfriend to shoot and kill. She was medically stabilized and cleared. ED note states: 61yo patient w/ hx of multiple psychiatric issues including psychosis and kalia presents for psychiatric clearance. Patient placed under psych involuntary hold for episodes of delusion leading to inability to take care of self and suicidal ideation (asking boyfriend to fire a gun at her). On arrival, the patient is AAOx3 and cooperative with my evaluation. No focal complaints of chest pain, shortness of breath, palpitations, N/V, focal GI/ complaints. Currently denies SI/HI. No complaints of hallucinations... On reassessment, labs and workup wnl. Patient is hemodynamically stable with no acute medical complaints. Discussed findings of leg swelling and erythema with patient who reports that she is seeing primary care provider for the symptoms. Patient has had these findings since her heart attack a few months ago. Patient report that she has not found any antibiotics. Concern for cellulitis, I have offered patient antibiotics for the lower extremity swelling and erythema, patient declined this time. I have discussed with psychiatric provider Dr. Landa who agrees with plan for admission for psych unit. Patient's daughter, Carol Bright, states in her petition dated 02/27/2021, she is having a change in her behavior. She is having delusions and being very hostile to anyone that tries to help her. She is not meeting her basic needs. She has a lot of health problems, not taking her medication, eating or sleeping. She asked her live-in boyfriend to take her out in the yard and she would her many times. She begs God to take her. An affidavit from Brenton Bright sworn on 02/27/2021 states, I am concerned for the safety and wellbeing of Ivette Wheeler due to her increasingly worsening depression and bizarre delusional behaviors. She has been experiencing hallucinations, speaking to people who are not there. She believes her TV is recording everyone's actions in her home. She has asked her long-term live-in boyfriend to shoot her on several occasions. Anyone who disagrees with her delusions is against her and she becomes verbally abusive, threatens to call the police. Given her extensive medical history and medical needs, I am concerned that she is not taking care of her self at this time. She is not been taking her medications, eating, sleeping or caring for herself as she once did. The changes in her behavior and mental health have steadily declined since her son, Dayron Wheeler, committed suicide in August of this year. She tries to manipulate nearly everyone into doing everything for her, despite her being physically capable. Failure to do what she wants causes her to become verbally abusive. She is capable of acting of sound mind for some period of time. The patient reports that she has been feeling depressed, has not slept for a week, has decreased appetite and energy, and has feelings of helplessness, hopelessness and worthlessness. When asked about suicidal ideation, she says, I would just as soon . I told my grandson that, and I meant it. She also says I beg my boyfriend to kill me. I was tired of feeling so sick. She denies homicidal ideation. She denies hearing voices and seeing things that ot hers do not see. However she says I am talking to Noel every day. The Lord is working through me. She says this in a somewhat mysterious way and cannot explain what she means. The patient reports this is her first psychiatric hospitalization. She says she has not taken psychiatric medication until recently, when someone prescribed an antipsychotic, which she does not think she needs. She said she had her first therapy session the other day with Dr. Porter. She says she drinks an occasional jayme, and does not use drugs or cigarettes. Psychiatric history: As above. Substance use history: As above. Family history: Patient denies mental health or addiction issues on either side of the family and denies suicide attempts or completions in the family. Psychosocial history: Patient says she grew up in the [facility], but lived in [place] for some period of time. 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 She says she was once and has 2 children. Legal history: No legal difficulties. Medical history?discharge note from [facility] medical unit on 02/18/2021 states: This is a 60-year-old female with a past medical history of diastolic CHF, CAD status post CABG, with most recent history of stenting 02/26/2020, atrial fibrillation, history of supratherapeutic INR with thigh hematoma leading to anemia, needing admissions between February 08 to February 11, recent COVID-19 infection, recent ER visit for heat exhaustion, currently her Plavix was discontinued, Coumadin was held since 725, who presents to [facility] due to complaints of generalized weakness and intermittent chest pain. For patient's chest pain, she was admitted to [facility] for NSTEMI, elevated troponins, 6-hour troponin to 14.7, 6-hour delta 13.7, no new EKG changes, echocardiogram showed mildly reduced ejection fraction to 50%, with mild anterior and septal wall hypokinesis, cardiology was consulted, who recommended medical management, with continuing to hold Coumadin and Plavix given her anemia and her left thigh hematoma, with outpatient follow-up for consideration of stress testing. Decision to resume anticoagulation and antiplatelet therapy will be made once patient follows up with cardiology as outpatient, hematoma is stable, hemoglobin is stable. Patient will follow up with cardiology in the next week. Patient was advised short of recurrent chest pain, the emergency room. Review of Systems General: Reports: 10 or more systems reviewed and unremarkable except in HPI and below Meds NPU Home Medications Medication Instructions Recorded Confirmed Last Taken Type fenofibrate nanocrystallized 145 145 mg PO DAILY 12/30/19 02/27/21 02/08/21 History mg tablet sotalol 120 mg tablet 120 mg PO BID #180 tab 11/14/20 02/27/21 02/08/21 Rx omega-3 fatty acids 1,000 mg 1,000 mg PO BID cap 01/12/21 02/27/21 01/22/21 06:00 History capsule clobetasol 1 applic TOPICAL BID PRN 01/22/21 02/27/21 Unknown History levothyroxine [Euthyrox] 150 mcg PO DAILY 01/22/21 02/27/21 02/08/21 History metformin 750 mg PO BID 01/22/21 02/27/21 02/08/21 History potassium chloride 10 meq PO DAILY 01/22/21 02/27/21 02/08/21 History zinc gluconate 50 mg PO DAILY #14 tab 01/25/21 02/27/21 02/08/21 Rx diphenhydramine HCl [Benadryl 25 mg PO BEDTIME PRN 02/08/21 02/27/21 02/07/21 History Allergy] fluticasone propion-salmeterol 1 puff INHALATION BID 02/08/21 02/27/21 02/08/21 History [Advair Diskus] trazodone 50 mg PO BEDTIME 02/08/21 02/27/21 02/07/21 History pantoprazole 40 mg PO BID #60 tab 02/11/21 02/27/21 Unknown Rx multivitamin 1 tab PO DAILY 02/17/21 02/27/21 Unknown History furosemide 40 mg PO DAILY 30 Days #30 tab 02/18/21 02/27/21 02/08/21 Rx diltiazem HCl 180 mg PO DAILY 02/27/21 02/27/21 Unknown History doxycycline hyclate 100 mg PO DAILY 02/27/21 02/27/21 Unknown History paroxetine HCl 10 mg PO DAILY 02/27/21 02/27/21 Unknown History warfarin See Rx Instructions .ROUTE .COMPLEX 02/27/21 02/27/21 Unknown History warfarin See Rx Instructions .ROUTE .COMPLEX 02/27/21 02/27/21 Unknown History Allergies Allergy/AdvReac Type Severity Reaction Status Date / Time atorvastatin [From Lipitor] Allergy Unknown Verified 02/27/21 17:47 lisinopril Allergy Unknown Verified 02/27/21 17:47 PFSH NPU PFSH: Medical History (Updated 02/27/21 @ 20:04 by Uzair Nick MD) ASHD (arteriosclerotic heart disease) Atrial fibrillation CHF (congestive heart failure) COVID-19 January Dyslipidemia Essential hypertension Hx of deep venous thrombosis Tricuspid incompetence Type 2 diabetes mellitus Surgical History History of coronary artery bypass graft 2005 History of coronary artery stent placement History of total vaginal hysterectomy History of tubal ligation Status post colonoscopy Family History Other CAD (coronary artery disease) Diabetes Hypertension Social History Smoking and tobacco status: never smoked Alcohol intake: current Alcohol intake frequency: holidays/special occasions only Household members: significant other Marital status: Single History of recent travel: No Mental Status Exam MSE Comments: I met with the patient in the day room room, and he was dressed in hospital scrubs and somewhat unkempt. Her left leg is red, swollen and oozing. She made good eye contact, but her ability to cooperate was only fair. No psychomotor agitation or retardation. Speech was somewhat pressured pressured. Alert, oriented to person, place, time, situation. Attention and concentration were intact. Able to spell the word WORLD correctly forwards and backwards. Memory is poor. Remembers 3/3 words immediately and 0/3 at 3 minutes. She knows the names of 3 of the past 5 presidents. Mood is depressed and anxious. Affect is anxious at times and cheerful at times. Thought process is tangential with some flight of ideas. Thought content: Denies auditory and visual hallucinations, but her family reports she has been responding to unseen others. Mild delusions noted, but family reports no significant delusions are present. She continues to have suicidal ideation, but no homicidal ideation. Insight and judgment appear to be significantly impaired by her changes in mental status. Vitals/I&O/Wt Last Vital Signs Temp 98.7 F 02/28/21 06:00 Pulse 140 H 02/28/21 06:00 Resp 22 H 02/28/21 06:00 BP 99/63 02/28/21 06:00 Pulse Ox 97 02/28/21 06:00 Weight last 48 hrs Weight 99.79 kg Data NPU : 02/27/21 19:40 02/27/21 19:40 A&P Additional A&P Information Ivette Wheeler is a 61 year old female who presented to the [facility] ED on a 96-hour hold for acute change in behavior with delusions and requests for her boyfriend to shoot and kill. She has become more depressed, delusional and having hallucinations since August 2020, when her son committed suicide. She may have worsened even further after Covid infection a couple months ago. 1. Discontinue paroxetine and start sertraline 50 mg daily for depression. Add Abilify 5 mg daily for depression and psychosis. 2. Continue every 15 minute checks for safety. 3. Encourage individual, group and milieu therapies. 4. Encourage sober living treatment after discharge at the highest level of c are to which he is willing to commit. 5. We will consult the hospitalist to follow her medical condition, including her left leg condition. Involuntary Hold Information 96 Hour Hold: 96 Hour Involuntary Admission: Yes 96 Hour Hold Ending Date: 03/05/21 96 Hour Hold Ending Time: 17:27 Attestations NPU Medical Necessity Statement*: Psychiatric hospitalization is medically necessary to prevent access to lethal means, to treat her psychosis, to reevaluate medication, and to coordinate a safe discharge. Patient will be in the hospital for over 2 midnights. Likely length of stay is 5-7 days. Coding Level of Care Code Acute Continuous Pillowcase Cutter for Jimmie Arias
--- NOTE | 2021-02-28 11:10 | PC.NURSE ---
Patient's Coumadin is currently been put on hold per [facility] from patient's Supervisor Filling And Packing.
[2021-02-28 11:49] LABS: Glucose Point of Care 111 mg/dL (70-110)
[2021-02-28] MEDS: sertraline 50 mg Tablet PO (12:21)
[2021-02-28] MEDS: ARIPiprazole 10 mg Tablet 5 MG PO (12:21)
[2021-02-28 14:00] VITALS: BP 108/76; PULSE 114; RESP 17; TEMP 36.8; O2SAT 93
[2021-02-28 16:57] LABS: Glucose Point of Care 108 mg/dL (70-110)
[2021-02-28] MEDS: warfarin 10 mg Tablet PO ×2 (19:01→21:58)
[2021-02-28] MEDS: potassium chloride ER 20 mEq Tablet 40 MEQ PO (20:09)
[2021-02-28 20:41] LABS: Glucose Point of Care 103 mg/dL (70-110)
[2021-02-28 20:54] VITALS: BP 118/79; PULSE 125; RESP 17; TEMP 36.5; O2SAT 94
[2021-02-28] MEDS: diphenhydrAMINE 25 mg Capsule PO (21:58)
[2021-02-28] MEDS: OLANZapine 5 mg ODT PO (21:58)
[2021-02-28] MEDS: bacitracin ointment 28 gm 1 APPLIC TOPICAL (21:59)
[2021-02-28] MEDS: LORazepam 2 mg Tablet PO (23:40)
--- NOTE | 2021-02-28 23:45 | PC.NURSE ---
Atavan 2mg PO given for anxiety, ( prior to dressing of legs ).
[2021-03-01 00:16] VITALS: PULSE 87; RESP 19; O2SAT 114
--- NOTE | 2021-03-01 00:45 | PC.NURSE ---
Dressing applied. Antibiotic ointment applied to affected area in legs. ABD pads applied then wrapped with kerlex as ordered.
[2021-03-01 06:00] VITALS: RESP 17
--- NOTE | 2021-03-01 06:06 | PC.NURSE ---
Pt was up all night so when she was asleep for vitals we decided to only take respirations
[2021-03-01 08:00] LABS: Basophils # 0.1 10^3/uL (0.0-0.1); Basophils % 1.2 %; Eosinophils # 0.2 10^3/uL (0.0-0.8); Eosinophils % 2.9 %; Hemoglobin 11.4 g/dL (11.5-15.3); Lymphocytes # 1.2 10^3/uL (0.8-4.8); Lymphocytes % 23.2 %; Mean Corpuscular Volume 96.7 fL (81-99); Mean Platelet Volume 9.7 fL (7.4-10.4); Monocytes # 0.7 10^3/uL (0.2-0.9); Monocytes % 13.9 %; Neutrophils # 3.03 10^3/uL (1.8-7.7); Neutrophils % 58.6 %; Nucleated Red Blood Cells % 0 %; Platelet Count 332 10^3/cmm (130-400); Red Blood Count 3.93 10^6/uL (4.1-5.3); Red Cell Distribution Width 18.9 % (12.1-15.1); White Blood Count 5.2 10^3/uL (4.0-10.0)
[2021-03-01 08:13] LABS: INR 1.11 (0.8-1.2)
[2021-03-01 08:22] LABS: Anion Gap 14.4 (5-19); Blood Urea Nitrogen 9 mg/dL (8-23); C Reactive Protein 55.1 mg/L (0.0-4.9); Calcium 8.7 mg/dL (8.5-10.5); Carbon Dioxide 27 mmol/L (22-29); Chloride 101 mmol/L (98-107); Creatinine Clr Calc Pharmacy 111.6296; Glomerular Filtration Rate 101.3 mL/min (90-130); Glucose 87 mg/dL (65-115); Osmolality Calculated 284 mOsm/kg (285-295); Potassium 4.4 mmol/L (3.5-5.1); Sodium 138 mmol/L (136-145)
[2021-03-01 08:31] LABS: Procalcitonin 0.07 ng/mL (0-0.5)
[2021-03-01] MEDS: sotalol 80 mg Tablet 120 MG PO ×2 (09:28→18:12)
[2021-03-01] MEDS: ARIPiprazole 10 mg Tablet 5 MG PO (09:30)
[2021-03-01] MEDS: dilTIAZem ER (24HR) 180 mg Capsule PO (09:30)
[2021-03-01] MEDS: sertraline 50 mg Tablet PO (09:31)
[2021-03-01] MEDS: pantoprazole DR 40 mg Tablet PO ×2 (09:31→18:12)
[2021-03-01] MEDS: multivitamin therapeutic Tablet 1 TAB PO (09:31)
[2021-03-01] MEDS: clopidogrel 75 mg Tablet PO (09:32)
[2021-03-01] MEDS: potassium chloride ER 10 mEq Tablet PO (09:32)
[2021-03-01] MEDS: doxycycline 100 mg Tablet PO ×2 (09:32→18:12)
[2021-03-01] MEDS: fenofibrate 145 mg Tablet PO (09:32)
[2021-03-01] MEDS: zinc gluconate 50 mg Tablet PO (09:32)
[2021-03-01] MEDS: omega-3 fatty acids 1,000 mg Capsule 1000 MG PO ×2 (09:32→18:12)
[2021-03-01] MEDS: bumetanide 1 mg Tablet PO (09:32)
[2021-03-01] MEDS: levothyroxine 150 mcg Tablet PO (09:32)
--- NOTE | 2021-03-01 10:43 | PM.CONSULT ---
Providers/Reason For Consult Consulting Physician/Specialty*: Hospitalist service Reason for Consult*: Multiple comorbid conditions management Attending Physician: Justin Landa MD Primary Care Provider: Yaw Sinclair MD History of Present Illness History of Present Illness Ivette Wheeler is a 61 year old female who carries multiple comorbid conditions such as CABG, A. fib RVR, chronic anticoagulation with Coumadin, type 2 diabetes, recent coronary artery stent in February, COVID-19 infection this year, admitted to neuropsychiatric unit for delusional disorder. Hospitalist services requested to comanage because of her multiple comorbidities. When I saw patient she was very agitated because of the fact that she is being kept against her wishes, she is not complaining of any chest pain or shortness of breath, at home she was using a walker for ambulation, she has not noticed any fever, nausea, vomiting. She is not complaining of any active leg pain. It was very difficult to take history because of her flight of ideas and disorganized thinking. She kept repeating that she would like her cousin who is a civil division commander deputy sheriff to be called and her psychologist to be notified. She was not able to tell me when was her last Coumadin dose. Of note her Coumadin and Plavix were discontinued secondary to hematoma which developed after a fall and she was supposed to follow-up with cardiology however unfortunately required neuropsychiatric admission because of her delusional disorder. Hematoma dimensions 8.5 x 5.2 x 15.7 cm posterior thigh intramuscular hematoma. INR 5.2 at that time Review of Systems Const: Denies: chills Eyes: Denies: change in vision ENMT: Denies: throat pain Card: Reports: swelling of feet/ankles and dyspnea on exertion; Denies: chest pain Resp: Reports: dyspnea GI: Denies: abdominal pain : Denies: flank pain Musc: Reports: extremity swelling and muscle cramps; Denies: neck pain Skin/Breast: Reports: changes in skin color Neuro: Denies: headache(s) Psych: Reports: anxiety and mood swings Endo: Denies: polyuria Flavio/Lymph: Reports: easy bruising All/Imm: Denies: urticaria Meds/Allergies Home Medications and Allergies Home Medications Medication Instructions Recorded Confirmed Last Taken Type fenofibrate nanocrystallized 145 145 mg PO DAILY 12/30/19 02/27/21 02/08/21 History mg tablet sotalol 120 mg tablet 120 mg PO BID #180 tab 11/14/20 02/27/21 02/08/21 Rx omega-3 fatty acids 1,000 mg 1,000 mg PO BID cap 01/12/21 02/27/21 01/22/21 06:00 History capsule clobetasol 1 applic TOPICAL BID PRN 01/22/21 02/27/21 Unknown History levothyroxine [Euthyrox] 150 mcg PO DAILY 01/22/21 02/27/21 02/08/21 History metformin 750 mg PO BID 01/22/21 02/27/21 02/08/21 History potassium chloride 10 meq PO DAILY 01/22/21 02/27/21 02/08/21 History zinc gluconate 50 mg PO DAILY #14 tab 01/25/21 02/27/21 02/08/21 Rx diphenhydramine HCl [Benadryl 25 mg PO BEDTIME PRN 02/08/21 02/27/21 02/07/21 History Allergy] fluticasone propion-salmeterol 1 puff INHALATION BID 02/08/21 02/27/21 02/08/21 History [Advair Diskus] trazodone 50 mg PO BEDTIME 02/08/21 02/27/21 02/07/21 History pantoprazole 40 mg PO BID #60 tab 02/11/21 02/27/21 Unknown Rx multivitamin 1 tab PO DAILY 02/17/21 02/27/21 Unknown History furosemide 40 mg PO DAILY 30 Days #30 tab 02/18/21 02/27/21 02/08/21 Rx diltiazem HCl 180 mg PO DAILY 02/27/21 02/27/21 Unknown History doxycycline hyclate 100 mg PO DAILY 02/27/21 02/27/21 Unknown History paroxetine HCl 10 mg PO DAILY 02/27/21 02/27/21 Unknown History warfarin See Rx Instructions .ROUTE .COMPLEX 02/27/21 02/27/21 Unknown History warfarin See Rx Instructions .ROUTE .COMPLEX 02/27/21 02/27/21 Unknown History Allergies Allergy/AdvReac Type Severity Reaction Status Date / Time atorvastatin [From Lipitor] Allergy Unknown Verified 02/27/21 17:47 lisinopril Allergy Unknown Verified 02/27/21 17:47 Current Medications Current Medications Generic Name Dose Route Start Last Admin Trade Name Kaitlin PRN Reason Stop Dose Admin Aripiprazole 5 mg 02/28/21 12:00 03/01/21 09:30 Aripiprazole 10 Mg Tablet PO 5 mg DAILY AGNES Administration Bacitracin 1 applic 02/28/21 21:00 03/01/21 10:23 Bacitracin Ointment 28 Gm TOPICAL Not Given TID AGNES Protocol Bumetanide 1 mg 03/01/21 09:00 03/01/21 09:32 Bumetanide 1 Mg Tablet PO 1 mg DAILY AGNES Administration Clopidogrel Bisulfate 75 mg 03/01/21 09:00 03/01/21 09:32 Clopidogrel 75 Mg Tablet PO 75 mg DAILY AGNES Administration Diltiazem HCl 180 mg 02/28/21 09:00 03/01/21 09:30 Diltiazem Er (24hr) 180 Mg Capsule PO 180 mg DAILY AGNES Administration Diphenhydramine HCl 25 mg 02/28/21 01:06 02/28/21 21:58 Diphenhydramine 25 Mg Capsule PO 25 mg BEDTIME PRN Administration Sleep Doxycycline Monohydrate 100 mg 03/01/21 09:00 03/01/21 09:32 Doxycycline 100 Mg Tablet PO 100 mg BID AGNES Administration Protocol Fenofibrate 145 mg 02/28/21 09:00 03/01/21 09:32 Fenofibrate 145 Mg Tablet PO 145 mg DAILY AGNES Administration Insulin Aspart 0 unit 02/28/21 08:00 03/01/21 09:04 Insulin Aspart 100 Unit/1 Ml SUBCUT Not Given WM&BEDTIME AGNES Protocol Levothyroxine Sodium 150 mcg 02/28/21 09:00 03/01/21 09:32 Levothyroxine 150 Mcg Tablet PO 150 mcg DAILY AGNES Administration Multivitamins Therapeutic 1 tab 02/28/21 09:00 03/01/21 09:31 Multivitamin Therapeutic Tablet PO 1 tab DAILY AGNES Administration Olanzapine 5 mg 02/27/21 23:07 02/28/21 21:58 Olanzapine 5 Mg Odt PO 5 mg Q4H PRN Administration Agitation/Psychosis Vqhar-1-Rafd Ethyl Esters 1,000 mg 02/28/21 09:00 03/01/21 09:32 [place]-3 Fatty Acids 1,000 Mg Capsule PO 1,000 mg BID AGNES Administration Pantoprazole Sodium 40 mg 02/28/21 09:00 03/01/21 09:[address] 40 Mg Tablet PO 40 mg BID AGNES Administration Potassium Chloride 10 meq 02/28/21 09:00 03/01/21 09:32 Potassium Chloride Er 10 Meq Tablet PO 10 meq DAILY AGNES Administration Fluticasone/Salmeterol 1 puff 02/28/21 08:00 03/01/21 00:15 Fluticasone-Salmeterol 250-50 Diskus INHALATION Not Given BID.RESPIRATORY AGNES Sertraline HCl 50 mg 02/28/21 12:00 03/01/21 09:31 Sertraline 50 Mg Tablet PO 50 mg DAILY AGNES Administration Sotalol HCl 120 mg 02/28/21 09:00 03/01/21 09:28 Sotalol 80 Mg Tablet PO 120 mg BID AGNES Administration Warfarin Sodium 10 mg 02/28/21 18:15 02/28/21 21:58 Warfarin 10 Mg Tablet PO 10 mg DAILY@1400 AGNES Administration Zinc Gluconate 50 mg 02/28/21 09:00 03/01/21 09:32 Zinc Gluconate 50 Mg Tablet PO 50 mg DAILY AGNES Administration PFSH Acute PFSH: Medical History ASHD (arteriosclerotic heart disease) Atrial fibrillation CHF (congestive heart failure) COVID-19 January Dyslipidemia Essential hypertension Hx of deep venous thrombosis Tricuspid incompetence Type 2 diabetes mellitus Surgical History History of coronary artery bypass graft 2005 History of coronary artery stent placement History of total vaginal hysterectomy History of tubal ligation Status post colonoscopy Family History Other CAD (coronary artery disease) Diabetes Hypertension Social History Smoking and tobacco status: never smoked Alcohol intake: current Alcohol intake frequency: holidays/special occasions only Household members: significant other Marital status: Single History of recent travel: No Vitals/I&O/Wt Last Vital Signs Temp 97.7 F 02/28/21 20:54 Pulse 87 03/01/21 00:16 Resp 17 03/01/21 06:00 BP 118/79 02/28/21 20:54 Pulse Ox 114 H 03/01/21 00:16 Weight last 48 hrs Weight 99.79 kg Physical Exam Narrative: EXAM NARRATIVE: Patient was seen and examined in neuropsychiatric unit A female nurse was present during my physical exam Her left thigh bruising has improved she has mild bruising around her left knee however no active hematoma or swelling She has bilateral lower extremity edema with purulent cellulitis of left leg, venous stasis dermatitis, hyperemia extending up to her knee Edema extending up to her abdominal wall, She seems to have appropriate grooming Has flight of ideas and disorganized thinking S1, S2 variable Soft abdomen no signs of peritonitis visceral obesity EOMI, PERRLA Bilateral breath sounds without adventitious rhonchi or crackles A&P Assessment and plan (1) Delusion: Status: Acute (2) Anemia: Status: Acute Qualifiers: Anemia type: iron deficiency Iron deficiency anemia type: other iron deficiency Qualified Code(s): D50.8 - Other iron deficiency anemias (3) Diastolic CHF: Status: Acute Qualifiers: Heart failure chronicity: chronic Qualified Code(s): I50.32 - Chronic diastolic (congestive) heart failure (4) Pulmonary hypertension: Status: Acute (5) Atrial fibrillation: Status: Acute Qualifiers: Atrial fibrillation type: unspecified Qualified Code(s): I48.91 - Unspecified atrial fibrillation (6) CAD (coronary artery disease): Status: Acute (7) Cellulitis: Status: Acute Additional A&P Information Cellulitis of left leg Noticed purulent discharge, she is not septic, hemodynamically stable no leukocytosis procalcitonin unremarkable, I agree with continuing doxycycline, will change dosage to twice a day Compression stockings and keeping her legs above heart level would be the best treatment Wound dressing with ABD and Kerlix Bacitracin topical ointment can be used A. fib without RVR I would continue her sotalol and diltiazem monitor QTc interval request another EKG, updated Dr. Anderson to keep an eye on QTc interval since there are a lot of antipsychotics on board that can affect her QTC Monitor for signs of hypotension with high doses of Cardizem and sotalol Blood pressure and vitals should be checked before and after administration of medications Left thigh hematoma No acute decompensation hemoglobin has stayed stable considering her significant coronary artery disease I will go ahead and start her on Plavix and Coumadin and check INR on a daily basis, target INR between 2 and 3 Type 2 diabetes: She can have cardiac consistent carb diet Neuropsychiatric/delusional disorder as per Dr. Anderson Full code Consult Attestations Medical Necessity Statement: As per Dr. Anderson Time Spent in Patient Care: 16 - 35 minutes Coding Level of Care Code Acute Engagement Specialist for Chg Fwd Diagnoses Delusion F22 Anemia D50.8 Anemia type: iron deficiency Iron deficiency anemia type: other iron deficiency Diastolic CHF I50.32 Heart failure chronicity: chronic Pulmonary hypertension I27.20 Atrial fibrillation I48.91 Atrial fibrillation type: unspecified CAD (coronary artery disease) I25.10 Cellulitis L03.90
--- NOTE | 2021-03-01 11:06 | ECG_ITS ---
[facility] Test Date: 2021-03-01 Pat Name: Ivette Wheeler Department: Room: 155 Gender: Female Photograph Finisher: : 1960 Requested By: Kash Motley Order Number: [id number] Reading MD: KASH SARABIA Measurements Intervals [place] Rate: 81 P: [place]: QRS: 45 QRSD: 92 T: 130 QT: 414 QTc: 481 Interpretive Statements ATRIAL FIBRILLATION WITH ABERRANT CONDUCTION OR VENTRICULAR PREMATURE COMPLEXES ST DEVIATION AND MODERATE T-WAVE ABNORMALITY, CONSIDER ANTEROLATERAL ISCHEMIA [-0.1+ mV T WAVE IN V3-V6] Compared to ECG 02/27/2021 02:13:23 Ventricular premature complex(es) now present Aberrant conduction of supraventricular beat(s) now present Possible ischemia now present T-wave abnormality still present Electronically Signed On 03-01-2021 21:24:09 CDT by KASH SARABIA [id number]
[2021-03-01 11:07] LABS: Glucose Point of Care 101 mg/dL (70-110)
[2021-03-01] MEDS: acetaminophen 325 mg Tablet 650 MG PO (12:50)
[2021-03-01] MEDS: warfarin 10 mg Tablet PO (15:22)
[2021-03-01] MEDS: bacitracin ointment 28 gm 1 APPLIC TOPICAL ×2 (16:32→22:10)
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
[2021-03-01 17:38] LABS: Glucose Point of Care 141 mg/dL (70-110)
--- NOTE | 2021-03-01 18:16 | USCV_ITS ---
Ivette Wheeler Age: 61 Gender: F : 1960 Exam Date: 03/01/2021 14:54 Ordering Phys: Kash Motley MD Technologist: Andria Wall Exam Location: [facility] [place] Indication: SWOLLEN RED LEGS HISTORY: Red swollen legs PROCEDURES: The venous duplex Doppler examination of both lower extremities was performed in the standard fashion. The following venous structures were evaluated: common femoral vein, profunda vein, proximal portion of the greater saphenous vein, superficial femoral vein, and the popliteal vein. In addition, the posterior tibial and peroneal trunk were evaluated. Serial compression, augmentation maneuvers, and spectral Doppler flow evaluation were performed. FINDINGS: Normal 2-D Doppler and augmentation and compressibility throughout the lower extremity venous structures. Additional imaging through the proximal calf veins also reveals no thrombus. Limited evaluation of the greater saphenous vein is patent with no thrombus.. CONCLUSIONS No evidence of right lower extremity DVT. No evidence of left lower extremity DVT. Dennys Stallings MD (Electronically Signed) Final Date: 01 March 2021 16:23 S
[2021-03-01 21:05] VITALS: BP 129/84; PULSE 88; RESP 18; TEMP 37; O2SAT 95
[2021-03-01] MEDS: OLANZapine 5 mg ODT PO (22:15)
[2021-03-01] MEDS: diphenhydrAMINE 25 mg Capsule PO (22:15)
--- NOTE | 2021-03-01 22:19 | PC.NURSE ---
No acc-u-check strips available ( NPU, CSU, MED_SURGE )
[2021-03-01 22:27] LABS: Glucose Point of Care 98 mg/dL (70-110)
[2021-03-01] MEDS: cetylpyridinium Lozenge 1 EACH MUCOUS MEM (23:22)
--- NOTE | 2021-03-02 03:57 | PC.NURSE ---
BEHAVIOR PT WOKE UP, THREW THE PILLOWS OFF HER BED INTO THE CARDONA AND FLOOR. SHE WENT TO THE BATHROOM, TURNED ON THE CALL LIGHT, AND TOLD NURSE THAT GOD TOLD HER TO DO THIS. SHE SAID COME ON IN HERE, WHAT DO YOU WANT GOD TO DO TO SHOW YOU THAT HE IS REAL? PT SAT ON THE BED, SAID NOW WATCH THIS, GOD IS GONNA MOVE THE BAG AND PUT THE PHONE BOOK INTO THE BAG ON THE TABLE. 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
[2021-03-02 06:00] VITALS: BP 119/83; PULSE 109; RESP 20; TEMP 36.6; O2SAT 95
[2021-03-02 06:41] LABS: Glucose Point of Care 116 mg/dL (70-110)
[2021-03-02] MEDS: cetylpyridinium Lozenge 1 EACH MUCOUS MEM (07:08)
--- NOTE | 2021-03-02 07:24 | ECG_ITS ---
[facility] Test Date: 2021-03-02 Pat Name: Ivette Wheeler Department: Room: 155 Gender: Female Wallpaperer: : 1960 Requested By: Kash Motley Order Number: [id number] Reading MD: KASH SARABIA Measurements Intervals [place] Rate: 117 P: [place]: QRS: 45 QRSD: 92 T: 29 QT: 295 QTc: 412 Interpretive Statements ATRIAL FIBRILLATION WITH RAPID VENTRICULAR RESPONSE NONSPECIFIC ST & T-WAVE ABNORMALITY ABNORMAL RHYTHM ECG Compared to ECG 03/01/2021 16:51:47 Ventricular premature complex(es) no longer present Aberrant conduction of supraventricular beat(s) no longer present Possible ischemia no longer present T-wave abnormality still present Electronically Signed On 03-02-2021 19:27:12 CDT by KASH SARABIA [id number]
[2021-03-02 07:54] LABS: Basophils # 0.1 10^3/uL (0.0-0.1); Basophils % 0.8 %; Eosinophils # 0.1 10^3/uL (0.0-0.8); Eosinophils % 2.4 %; Hematocrit 37.5 % (37.0-47.0); Hemoglobin 11.4 g/dL (11.5-15.3); Lymphocytes # 1.2 10^3/uL (0.8-4.8); Lymphocytes % 20.5 %; Mean Corpuscular HGB Conc 30.4 g/dL (30.0-36.0); Mean Corpuscular Hemoglobin 29.2 pg (28.0-34.0); Mean Corpuscular Volume 96.2 fL (81-99); Monocytes # 0.8 10^3/uL (0.2-0.9); Neutrophils # 3.74 10^3/uL (1.8-7.7); Nucleated Red Blood Cells % 0 %; Platelet Count 352 10^3/cmm (130-400); Red Cell Distribution Width 18.5 % (12.1-15.1); White Blood Count 5.9 10^3/uL (4.0-10.0)
[2021-03-02 08:04] LABS: INR 1.63 (0.8-1.2)
[2021-03-02 08:43] LABS: Troponin(5th) Baseline 135 ng/L (0-10)
[2021-03-02] MEDS: sotalol 80 mg Tablet 120 MG PO ×2 (09:02→17:44)
[2021-03-02] MEDS: potassium chloride ER 10 mEq Tablet PO (09:02)
[2021-03-02] MEDS: multivitamin therapeutic Tablet 1 TAB PO (09:03)
[2021-03-02] MEDS: zinc gluconate 50 mg Tablet PO (09:03)
[2021-03-02] MEDS: omega-3 fatty acids 1,000 mg Capsule 1000 MG PO ×2 (09:03→17:44)
[2021-03-02] MEDS: pantoprazole DR 40 mg Tablet PO ×2 (09:03→17:44)
[2021-03-02] MEDS: ARIPiprazole 10 mg Tablet 5 MG PO (09:03)
[2021-03-02] MEDS: levothyroxine 150 mcg Tablet PO (09:04)
[2021-03-02] MEDS: doxycycline 100 mg Tablet PO ×2 (09:04→17:45)
[2021-03-02] MEDS: fenofibrate 145 mg Tablet PO (09:04)
[2021-03-02] MEDS: sertraline 50 mg Tablet PO (09:04)
[2021-03-02] MEDS: bumetanide 1 mg Tablet PO (09:04)
[2021-03-02] MEDS: clopidogrel 75 mg Tablet PO (09:04)
[2021-03-02] MEDS: dilTIAZem ER (24HR) 180 mg Capsule PO (09:05)
[2021-03-02] MEDS: aspirin 81 mg EC Tablet PO (09:33)
[2021-03-02 09:34] VITALS: PULSE 117
[2021-03-02] MEDS: bacitracin ointment 28 gm 1 APPLIC TOPICAL ×2 (09:41→14:25)
--- NOTE | 2021-03-02 10:40 | PM.CONSULT ---
Providers/Reason For Consult Consulting Physician/Specialty*: HARDIK Anderson MD/cardiology Reason for Consult*: Patient with chest pain and elevated troponin T Attending Physician: Bienvenido Heller MD Primary Care Provider: Yaw Sinclair MD History of Present Illness History of Present Illness Ivette Wheeler is a 61 year old female is admitted to the hospital with features of acute behavioral changes. She is on a 96-hour hold. She was found to have elevated troponin T. Cardiology consult is requested for further cardiac evaluation recommendations. This patient is known to have multiple medical problems including coronary disease, status post coronary bypass surgery 2004, history of chronic atrial fibrillation, on long-term oral anticoagulation, recent fall sustaining large hematoma in the leg, history of diastolic heart failure, recent COVID-19 pneumonitis, blood loss anemia, anxiety/depressive illness. Patient apparently was found to have elevated troponin T. She denies any chest pain or chest tightness. No unusual shortness of breath. According to her, she was brought to the hospital against her will by her daughter. She denies any fever or chills. No cough. She was found to have elevated troponin T during the recent hospital admission. She was evaluated by Dr. Givens at that time. The plan was to do a myocardial perfusion imaging as an outpatient and then decide on the need for further cardiac work-up. This patient had a cardiac catheterization in February of last year. She was found to have mid chronic LAD occlusion along with mild to moderate circumflex lesion and left main luminal irregularity. She had dominant large size and caliber RCA with proximal tight 80% mid 40-50 and distal 60% stenosis. SVG to diagonal, SVG to circumflex was noted to be chronically occluded, BOYD to LAD was patent. Proximal RCA was fixed with drug-eluting stent postdilated with noncompliant balloon. Excellent angiographic result was achieved. According the patient, she has not had any significant coronary disease since the coronary intervention. She had multiple hospital admission for various other conditions since then. Most recently, she was admitted with features of intramuscular hematoma and blood loss anemia. Prior to this, she was admitted to the hospital with COVID-19 pneumonia. According the patient, she has not been feeling well ever since. She has some generalized feeling of weakness/uneasiness. She denies any chest pain and is wanting to go home. Review of Systems Narrative: CONSTITUTIONAL: No fever or chills. EYES: No blurring of vision or other visual disturbances lately. ENT: No hoarseness of voice, auditory disturbances or sore throat. CARDIOVASCULAR: As mentioned above. RESPIRATORY: History of hemoptysis. No recent episodes. GASTROINTESTINAL: No hematemesis or melena. GENITOURINARY: No dysuria or hematuria. INTEGUMENTARY: No skin rashes or history of skin cancer. NEURO: No transient ischemic attacks or amaurosis. PSYCHIATRIC: As mentioned above HEMATOLOGIC: Blood loss anemia as mentioned above ENDOCRINE: No history of polyuria or polydipsia. MUSCULOSKELETAL: No recent joint pain or swelling. ALLERGY/IMMUNOLOGY: As mentioned above. Meds/Allergies Home Medications and Allergies Home Medications Medication Instructions Recorded Confirmed Last Taken Type fenofibrate nanocrystallized 145 145 mg PO DAILY 12/30/19 02/27/21 02/08/21 History mg tablet sotalol 120 mg tablet 120 mg PO BID #180 tab 11/14/20 02/27/21 02/08/21 Rx omega-3 fatty acids 1,000 mg 1,000 mg PO BID cap 01/12/21 02/27/21 01/22/21 06:00 History capsule clobetasol 1 applic TOPICAL BID PRN 01/22/21 02/27/21 Unknown History levothyroxine [Euthyrox] 150 mcg PO DAILY 01/22/21 02/27/21 02/08/21 History metformin 750 mg PO BID 01/22/21 02/27/21 02/08/21 History potassium chloride 10 meq PO DAILY 01/22/21 02/27/21 02/08/21 History zinc gluconate 50 mg PO DAILY #14 tab 01/25/21 02/27/21 02/08/21 Rx diphenhydramine HCl [Benadryl 25 mg PO BEDTIME PRN 02/08/21 02/27/21 02/07/21 History Allergy] fluticasone propion-salmeterol 1 puff INHALATION BID 02/08/21 02/27/21 02/08/21 History [Advair Diskus] trazodone 50 mg PO BEDTIME 02/08/21 02/27/21 02/07/21 History pantoprazole 40 mg PO BID #60 tab 02/11/21 02/27/21 Unknown Rx multivitamin 1 tab PO DAILY 02/17/21 02/27/21 Unknown History furosemide 40 mg PO DAILY 30 Days #30 tab 02/18/21 02/27/21 02/08/21 Rx diltiazem HCl 180 mg PO DAILY 02/27/21 02/27/21 Unknown History doxycycline hyclate 100 mg PO DAILY 02/27/21 02/27/21 Unknown History paroxetine HCl 10 mg PO DAILY 02/27/21 02/27/21 Unknown History warfarin See Rx Instructions .ROUTE .COMPLEX 02/27/21 02/27/21 Unknown History warfarin See Rx Instructions .ROUTE .COMPLEX 02/27/21 02/27/21 Unknown History Allergies Allergy/AdvReac Type Severity Reaction Status Date / Time atorvastatin [From Lipitor] Allergy Unknown Verified 02/27/21 17:47 lisinopril Allergy Unknown Verified 02/27/21 17:47 Current Medications Current Medications Generic Name Dose Route Start Last Admin Trade Name Freq PRN Reason Stop Dose Admin Acetaminophen 650 mg 02/27/21 23:07 03/01/21 12:50 Acetaminophen 325 Mg Tablet PO 650 mg Q4H PRN Administration MILD PAIN Aripiprazole 5 mg 02/28/21 12:00 03/02/21 09:03 Aripiprazole 10 Mg Tablet PO 5 mg DAILY AGNES Administration Aspirin 81 mg 03/02/21 09:00 03/02/21 09:33 Aspirin 81 Mg Ec Tablet PO 81 mg DAILY AGNES Administration Bacitracin 1 applic 02/28/21 21:00 03/02/21 09:41 Bacitracin Ointment 28 Gm TOPICAL 1 applic TID AGNES Administration Protocol Benzocaine 1 each 03/01/21 22:47 03/02/21 07:08 Cetylpyridinium Lozenge MUCOUS MEM 1 each Q2H PRN Administration SORE THROAT Bumetanide 1 mg 03/01/21 09:00 03/02/21 09:04 Bumetanide 1 Mg Tablet PO 1 mg DAILY AGNES Administration Clopidogrel Bisulfate 75 mg 03/01/21 09:00 03/02/21 09:04 Clopidogrel 75 Mg Tablet PO 75 mg DAILY AGNES Administration Diltiazem HCl 180 mg 02/28/21 09:00 03/02/21 09:05 Diltiazem Er (24hr) 180 Mg Capsule PO 180 mg DAILY AGNES Administration Diphenhydramine HCl 25 mg 02/28/21 01:06 03/01/21 22:15 Diphenhydramine 25 Mg Capsule PO 25 mg BEDTIME PRN Administration Sleep Doxycycline Monohydrate 100 mg 03/01/21 09:00 03/02/21 09:04 Doxycycline 100 Mg Tablet PO 100 mg BID AGNES Administration Protocol Fenofibrate 145 mg 02/28/21 09:00 03/02/21 09:04 Fenofibrate 145 Mg Tablet PO 145 mg DAILY AGNES Administration Insulin Aspart 0 unit 02/28/21 08:00 03/02/21 07:52 Insulin Aspart 100 Unit/1 Ml SUBCUT Not Given WM&BEDTIME AGNES Protocol Levothyroxine Sodium 150 mcg 02/28/21 09:00 03/02/21 09:04 Levothyroxine 150 Mcg Tablet PO 150 mcg DAILY AGNES Administration Multivitamins Therapeutic 1 tab 02/28/21 09:00 03/02/21 09:03 Multivitamin Therapeutic Tablet PO 1 tab DAILY AGNES Administration Olanzapine 5 mg 02/27/21 23:07 03/01/21 22:15 Olanzapine 5 Mg Odt PO 5 mg Q4H PRN Administration Agitation/Psychosis Cumfl-0-Eheh Ethyl Esters 1,000 mg 02/28/21 09:00 03/02/21 09:03 Drumright-3 Fatty Acids 1,000 Mg Capsule PO 1,000 mg BID AGNES Administration Pantoprazole Sodium 40 mg 02/28/21 09:00 03/02/21 09:[address] 40 Mg Tablet PO 40 mg BID AGNES Administration Potassium Chloride 10 meq 02/28/21 09:00 03/02/21 09:02 Potassium Chloride Er 10 Meq Tablet PO 10 meq DAILY AGNES Administration Fluticasone/Salmeterol 1 puff 02/28/21 08:00 03/01/21 00:15 Fluticasone-Salmeterol 250-50 Diskus INHALATION Not Given BID.RESPIRATORY AGNES Sertraline HCl 50 mg 02/28/21 12:00 03/02/21 09:04 Sertraline 50 Mg Tablet PO 50 mg DAILY AGNES Administration Sotalol HCl 120 mg 02/28/21 09:00 03/02/21 09:02 Sotalol 80 Mg Tablet PO 120 mg BID AGNES Administration Zinc Gluconate 50 mg 02/28/21 09:00 03/02/21 09:03 Zinc Gluconate 50 Mg Tablet PO 50 mg DAILY AGNES Administration PFSH Acute PFSH: Medical History ASHD (arteriosclerotic heart disease) Atrial fibrillation CHF (congestive heart failure) COVID-19 January Dyslipidemia Essential hypertension Hx of deep venous thrombosis Tricuspid incompetence Type 2 diabetes mellitus Surgical History History of coronary artery bypass graft 2005 History of coronary artery stent placement History of total vaginal hysterectomy History of tubal ligation Status post colonoscopy Family History Other CAD (coronary artery disease) Diabetes Hypertension Social History Smoking and tobacco status: never smoked Alcohol intake: current Alcohol intake frequency: holidays/special occasions only Household members: significant other Marital status: Single History of recent travel: No Vitals/I&O/Wt Last Vital Signs Temp 97.8 F 03/02/21 06:00 Pulse 117 H 03/02/21 09:34 Resp 20 H 03/02/21 06:00 BP 119/83 03/02/21 06:00 Pulse Ox 95 03/02/21 06:00 Physical Exam Narrative: EXAM NARRATIVE: GENERAL: The patient is alert and oriented times three. Not in any acute distress. HEENT: No significant pallor, icterus or lymphadenopathy. The pupils are symmetrical. Oral cavity: There are no mucous membrane lesions. Funduscopic examination: The fundus is not visualized NECK: Trachea appears to be central. No masses noted. No JVD or thyromegaly appreciated. No carotid bruit. RESPIRATORY: Chest is symmetrical. No intercostals muscle retraction or any accessory muscle activation. There is no chest wall tenderness. Breath sounds are heard bilaterally. No rales or rhonchi heard. No evidence of any consolidation. BREASTS: Deferred. HEART: The PMI is not palpated. No other palpable precordial events. S1 and S2 are normal. No S3 or S4 heard. No pericardial rub or any click heard. ABDOMEN: No vessel pulsations or distention. No tenderness. No organomegaly appreciated. No abdominal bruit. Bowel sounds are normally heard. : Deferred. RECTAL: Deferred. LYMPHATIC: No lymphadenopathy noted in the neck or groin. EXTREMITIES: 2-3+ edema of both lower extremities. Tense induration in both thigh and calf area. MUSCULOSKELETAL: No acute joint deformities or swelling. SKIN: There are redness on the anterior aspect of both legs. NEUROPSYCHIATRIC: The patient is alert and oriented x3. Seems to be anxious . He is very much fixated on her house condition and the need to go home today!. Data Labs: Other Labs: Laboratory Last Values WBC 5.9 10^3/uL (4.0- 10.0) 03/02/21 07:19 RBC 3.90 10^6/uL (4.1 -5.3) L 03/02/21 07:19 Hgb 11.4 g/dL (11.5-1 5.3) L 03/02/21 07:19 Hct 37.5 % (37.0-47.0 ) 03/02/21 07:19 MCV 96.2 fL (81-99) 03/02/21 07:19 MCH 29.2 pg (28.0-34. 0) 03/02/21 07:19 MCHC 30.4 g/dL (30.0-3 6.0) 03/02/21 07:19 RDW 18.5 % (12.1-15.1 ) H 03/02/21 07:19 Plt Count 352 10^3/cmm (130 -400) 03/02/21 07:19 MPV 10.0 fL (7.4-10.4 ) 03/02/21 07:19 Neut % (Auto) 63.0 % 03/02/21 07:19 Lymph % (Auto) 20.5 % 03/02/21 07:19 [place] % (Auto) 13.0 % 03/02/21 07:19 Eos % (Auto) 2.4 % 03/02/21 07:19 Baso % (Auto) 0.8 % 03/02/21 07:19 Neut # (Auto) 3.74 10^3/uL (1.8 -7.7) 03/02/21 07:19 Lymph # (Auto) 1.2 10^3/uL (0.8- 4.8) 03/02/21 07:19 [place] # (Auto) 0.8 10^3/uL (0.2- 0.9) 03/02/21 07:19 Eos # (Auto) 0.1 10^3/uL (0.0- 0.8) 03/02/21 07:19 Baso # (Auto) 0.1 10^3/uL (0.0- 0.1) 03/02/21 07:19 Nucleated RBC % (a uto) 0 % 03/02/21 07:19 Nucleated RBCs # 0.0 /100WBC 03/02/21 07:19 PT 19.70 SECONDS (12 .1-14.9) H D 03/02/21 07:19 INR 1.63 (0.8-1.2) H 03/02/21 07:19 Sodium 138 mmol/L (136-1 45) 03/01/21 07:45 Potassium 4.4 mmol/L (3.5-5 .1) 03/01/21 07:45 Chloride 101 mmol/L (98-10 7) 03/01/21 07:45 Carbon Dioxide 27 mmol/L (22-29) 03/01/21 07:45 Anion Gap 14.4 (5-19) 03/01/21 07:45 BUN 9 mg/dL (8-23) 03/01/21 07:45 Creatinine 0.6 mg/dL (0.5-0. 9) 03/01/21 07:45 GFR Calculation 101.3 mL/min (90- 130) 03/01/21 07:45 Glucose 87 mg/dL (65-115) 03/01/21 07:45 POC Glucose 116 mg/dL (70-110 ) H 03/02/21 06:38 Calculated Osmolal ity 284 mOsm/kg (285- 295) L 03/01/21 07:45 Calcium 8.7 mg/dL (8.5-10 .5) 03/01/21 07:45 Total Bilirubin 1.2 mg/dL (0.15-1 .2) 02/27/21 19:40 AST 27 U/L (0-32) 02/27/21 19:40 ALT 29 U/L (0-33) 02/27/21 19:40 Alkaline Phosphata se 60 IU/L (35-105) 02/27/21 19:40 Troponin T Baselin e 135 ng/L (0-10) H* 03/02/21 07:19 C-Reactive Protein 55.1 mg/L (0.0-4. 9) H 03/01/21 07:45 Total Protein 5.7 g/dL (6.6-8.7 ) L 02/27/21 19:40 Albumin 3.2 g/dL (3.5-5.2 ) L 02/27/21 19:40 Globulin 2.5 g/dL (1.3-4.6 ) 02/27/21 19:40 Procalcitonin 0.07 ng/mL (0-0.5 ) 03/01/21 07:45 Urine Color Dark yellow (Yel low) 02/27/21 18:05 Urine Appearance Turbid (CLEAR) 02/27/21 18:05 Urine pH 5 (5-7) 02/27/21 18:05 Ur Specific Gravit y 1.030 (1.005-1.0 30) 02/27/21 18:05 Urine Protein 1+ (Negative) H 02/27/21 18:05 Urine Glucose (UA) Norm (Normal) 02/27/21 18:05 Urine Ketones 1+ (Negative) H 02/27/21 18:05 Urine Blood Neg (Negative) 02/27/21 18:05 Urine Nitrate Negative (Negati ve) 02/27/21 18:05 Urine Bilirubin 2+ (Negative) H 02/27/21 18:05 Urine Urobilinogen 8 mg/dL (Negative ) H 02/27/21 18:05 Ur Leukocyte Kaylee ase Negative (Negati ve) 02/27/21 18:05 Urine RBC 0-4 /hpf (0-2) H 02/27/21 18:05 Urine WBC 0-4 /hpf (0-5) H 02/27/21 18:05 Ur Squamous Epith Cells 0-4 /hpf (0-5) H 02/27/21 18:05 Amorphous Sediment Not Reportable 02/27/21 18:05 Urine Bacteria Trace /hpf (NONE) 02/27/21 18:05 Salicylates < 0.3 mg/dL (3-10 ) L 02/27/21 19:40 Urine Opiates Scre en Negative ng/mL (N egative) 02/27/21 18:05 Acetaminophen < 5.0 ug/mL (10-3 0) L 02/27/21 19:40 Ur Barbiturates Sc reen Negative ng/mL (N egative) 02/27/21 18:05 Ur Phencyclidine S crn Negative ng/mL (N egative) 02/27/21 18:05 Ur Amphetamines Sc reen Negative ng/mL (N egative) 02/27/21 18:05 U Benzodiazepines Scrn Positive ng/mL (N egative) H 02/27/21 18:05 Urine Cocaine Scre en Negative ng/mL (N egative) 02/27/21 18:05 U Marijuana (THC) Screen Negative ng/mL (N egative) 02/27/21 18:05 Imaging^: Echo: My impression: Echocardiogram on 01/23/21 revealed Normal left ventricular size and systolic function, EF 63 %. Abnormal septal motion consistent with conduction abnormality. Mild biatrial enlargementMild prolapse of the anterior mitral leaflets. Mild to moderate eccentric mitral regurgitation with the regurgitant jet directed posteriorly. [id number] tricuspid valve regurgitation. Pulmonary hypertension with an estimated pulmonary artery peak systolic pressure of 53 mmHg. There is no pericardial effusion. There are no intracardiac masses. Compared to the study from 04/23/2018, there is worsening of the mitral and tricuspid regurgitation and development of mild biatrial enlargement EKG^: EKG 1: My Interpretation: Atrial fibrillation with rapid ventricular rate of 117 bpm. Diffuse nonspecific T wave changes. A&P Assessment and plan (1) Elevated troponin I level: Most likely the elevated troponin T is from type II myocardial infarction. She has chronic atrial fibrillation with rapid ventricular rate. She may have underlying coronary ischemia but she is very asymptomatic. Her heart rate needs to be better controlled. Status: Acute (2) Atherosclerosis of coronary artery of [place] heart without angina pectoris: I may go ahead and schedule the patient for an outpatient myocardial perfusion imaging, to evaluate for underlying coronary ischemia. In the meanwhile, she may continue on the current medications. Status: Acute (3) Chronic atrial fibrillation with RVR: The dose of the diltiazem may be increased to 240 mg p.o. daily. Her blood pressure needs to be closely monitored. Status: Acute (4) Pulmonary hypertension: At this point, since the patient has no specific symptoms, may continue on the current medications. Status: Acute (5) CHF (congestive heart failure): Currently she is compensated clinically. May continue on the current medications. Status: Acute Qualifiers: Heart failure type: diastolic Heart failure chronicity: chronic Qualified Code(s): I50.32 - Chronic diastolic (congestive) heart failure (6) Essential hypertension: Her blood pressure is under control. We will continue on the current medications. Status: Acute (7) Dyslipidemia: Continue on the current management. Status: Chronic Additional A&P Information If the patient continues to remain stable, the heart rate properly controlled, she may be discharged home from a cardiac standpoint. Please make an appointment to be seen by Dr. Cunningham in two weeks. Myocardial perfusion imaging as an outpatient. Consult Attestations Medical Necessity Statement: Disposition as per the primary Coding Level of Care Code Acute Psychiatric Tech for Jimmie Arias Diagnoses Elevated troponin I level R77.8 Atherosclerosis of coronary artery of [place] heart without angina pectoris I25.10 Chronic atrial fibrillation with RVR I48.20 Pulmonary hypertension I27.20 CHF (congestive heart failure) I50.32 Heart failure type: diastolic Heart failure chronicity: chronic Essential hypertension I10 Dyslipidemia E78.5
[2021-03-02] MEDS: aspirin 325 mg EC Tablet PO (11:12)
[2021-03-02] MEDS: enoxaparin 100 mg/mL Syringe SUBCUT (11:12)
[2021-03-02 11:36] LABS: Glucose Point of Care 93 mg/dL (70-110)
[2021-03-02 11:47] LABS: Troponin 5 2HR 122.5 ng/L (0-10); Troponin 5 2HR Delta -12.5 ABS# (0-10)
--- NOTE | 2021-03-02 11:50 | PC.NURSE ---
Critical Lab troponin level 122.[address] Anderson at 11:52
--- NOTE | 2021-03-02 12:24 | NPU.GN ---
[facility] Topic:Depression General Mood of Group: Adolfo was at group today but did not feel like playing BINGO. She was dressed appropriately and had good hygiene. She did sit in for a about 5 minutes. She did ask for a BINGO card so she can see the different symptoms of depression so she can speak with a mental health provider about what symptoms she feels she is struggling with.
[2021-03-02] MEDS: acetaminophen 325 mg Tablet 650 MG PO (13:15)
--- NOTE | 2021-03-02 13:24 | ECG_ITS ---
[facility] Test Date: 2021-03-02 Pat Name: Ivette Wheeler Department: Room: 155 Gender: Female Document Photographer: : 1960 Requested By: Kash Motley Order Number: [id number] Reading MD: KASH SARABIA Measurements Intervals [place] Rate: 94 P: AK: QRS: 25 QRSD: 97 T: 123 QT: 350 QTc: 438 Interpretive Statements ATRIAL FIBRILLATION WITH ABERRANT CONDUCTION OR VENTRICULAR PREMATURE COMPLEXES NONSPECIFIC ST & T-WAVE ABNORMALITY Compared to ECG 03/02/2021 09:09:39 Ventricular premature complex(es) now present Aberrant conduction of supraventricular beat(s) now present T-wave abnormality still present Electronically Signed On 03-02-2021 19:27:20 CDT by KASH SARABIA [id number]
[2021-03-02 14:00] VITALS: BP 112/71; PULSE 92; RESP 18; TEMP 36.3; O2SAT 91
--- NOTE | 2021-03-02 14:17 | PC.NURSE ---
PT Refusal to comply with Dr's orders Pt c/o of bandages being too tight on legs, nurse was able to place two fingers under bandages. Legs are swollen, pt has been advised several times to lay down and elevate legs to reduce the swelling. Placed a wedge under the foot of the bed to elevate the legs. Will continue to monitor pt.
[2021-03-02 14:49] LABS: Troponin 5 6HR 119.3 ng/L (0-10); Troponin 5 6HR Delta -15.7 ng/L (0-12)
--- NOTE | 2021-03-02 18:33 | P.DS_ITS ---
Diagnoses at Discharge Discharge Diagnosis (1) Elevated troponin I level: Status: Acute (2) Atherosclerosis of coronary artery of [place] without angina pectoris: Status: Chronic (3) Chronic atrial fibrillation with RVR: Status: Chronic (4) Pulmonary hypertension: Status: Inactive (5) CHF (congestive heart failure): Status: Inactive Qualifiers: Heart failure chronicity: chronic Heart failure type: diastolic Qualified Code(s): I50.32 - Chronic diastolic (congestive) heart failure (6) Essential hypertension: Status: Chronic (7) Dyslipidemia: Status: Chronic Reason for Visit Reason for Visit: Depression with psychosis Brief History: History of Present Illness Ivette Wheeler is a 61 year old female who presented to the [facility] ED on a 96-hour hold for acute change in behavior with delusions and requests for her boyfriend to shoot and kill. She was medically stabilized and cleared. ED note states: 61yo patient w/ hx of multiple psychiatric issues including psychosis and kalia presents for psychiatric clearance. Patient placed under psych involuntary hold for episodes of delusion leading to inability to take care of self and suicidal ideation (asking boyfriend to fire a gun at her). On arrival, the patient is AAOx3 and cooperative with my evaluation. No focal complaints of chest pain, shortness of breath, palpitations, N/V, focal GI/ complaints. Currently denies SI/HI. No complaints of hallucinations... On reassessment, labs and workup wnl. Patient is hemodynamically stable with no acute medical complaints. Discussed findings of leg swelling and erythema with patient who reports that she is seeing primary care provider for the symptoms. Patient has had these findings since her heart attack a few months ago. Patient report that she has not found any antibiotics. Concern for cellulitis, I have offered patient antibiotics for the lower extremity swelling and erythema, patient declined this time. I have discussed with psychiatric provider Dr. Landa who agrees with plan for admission for psych unit. Patient's daughter, Carol Bright, states in her petition dated 02/27/2021, she is having a change in her behavior. She is having delusions and being very hostile to anyone that tries to help her. She is not meeting her basic needs. She has a lot of health problems, not taking her medication, eating or sleeping. She asked her live-in boyfriend to take her out in the yard and she would her many times. She begs God to take her. An affidavit from Brenton sagastume on 02/27/2021 states, I am concerned for the safety and wellbeing of Ivette Wheeler due to her increasingly worsening depression and bizarre delusional behaviors. She has been experiencing hallucinations, speaking to people who are not there. She believes her TV is recording everyone's actions in her home. She has asked her long-term live-in boyfriend to shoot her on several occasions. Anyone who disagrees with her delusions is against her and she becomes verbally abusive, threatens to call the police. Given her extensive medical history and medical needs, I am concerned that she is not taking care of her self at this time. She is not been taking her medications, eating, sleeping or caring for herself as she once did. The changes in her behavior and mental health have steadily declined since her son, Dayron Wheeler, committed suicide in August of this year. She tries to manipulate nearly everyone into doing everything for her, despite her being physically capable. Failure to do what she wants causes her to become verbally abusive. She is capable of acting of sound mind for some period of time. The patient reports that she has been feeling depressed, has not slept for a week, has decreased appetite and energy, and has feelings of helplessness, hopelessness and worthlessness. When asked about suicidal ideation, she says, I would just as soon . I told my grandson that, and I meant it. She also says I beg my boyfriend to kill me. I was tired of feeling so sick. She denies homicidal ideation. She denies hearing voices and seeing things that others do not see. However she says I am talking to Noel every day. The Lord is working through me. She says this in a somewhat mysterious way and cannot explain what she means. The patient reports this is her first psychiatric hospitalization. She says she has not taken psychiatric medication until recently, when someone prescribed an antipsychotic, which she does not think she needs. She said she had her first therapy session the other day with Dr. Porter. She says she drinks an occasional jayme, and does not use drugs or cigarettes. Psychiatric history: As above. Substance use history: As above. Family history: Patient denies mental health or addiction issues on either side of the family and denies suicide attempts or completions in the family. Psychosocial history: Patient says she grew up in the [place] area, but lived in [place] for some period of time. 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 She says she was once and has 2 children. Legal history: No legal difficulties. Medical history?discharge note from [facility] medical unit on 02/18/2021 states: This is a 60-year-old female with a past medical history of diastolic CHF, CAD status post CABG, with most recent history of stenting 02/26/2020, atrial fibrillation, history of supratherapeutic INR with thigh hematoma leading to anemia, needing admissions between February 08 to February 11, recent COVID-19 infection, recent ER visit for heat exhaustion, currently her Plavix was discontinued, Coumadin was held since 725, who presents to [facility] due to complaints of generalized weakness and intermittent chest pain. For patient's chest pain, she was admitted to [facility] for NSTEMI, elevated troponins, 6-hour troponin to 14.7, 6-hour delta 13.7, no new EKG changes, echocardiogram showed mildly reduced ejection fraction to 50%, with mild anterior and septal wall hypokinesis, cardiology was consulted, who recommended medical management, with continuing to hold Coumadin and Plavix given her anemia and her left thigh hematoma, with outpatient follow-up for consideration of stress testing. Decision to resume anticoagulation and antiplatelet therapy will be made once patient follows up with cardiology as outpatient, hematoma is stable, hemoglobin is stable. Patient will follow up with cardiology in the next week. Patient was advised short of recurrent chest pain, the emergency room. Hospital Course Hospital Course She was admitted to the neuropsychiatric unit for definitive treatment of her issues on transfer from the inpatient medical side. She slowly acclimated to the individual, group and mood therapies provided. Paxil was discontinued and Zoloft was started as well as Abilify 5 mg p.o. every morning and she showed modest improvement. During the hospitalization, patient had routine laboratory studies which were within normal limits except for few outliers some of those outliers were related to her comorbidities which were managed by the hospitalist. Additionally there was a general medical evaluation which was also within normal limits and revealed no new acute processes, but she did have chronic medical issues are being managed by the hospitalist team during her stay. Discharge Summary: At the time of discharge, lethality was denied and psychosis was resolving. Mood and anxiety were well managed. Patient endorsed a plan to follow-up with the aftercare recommendations of the treatment team. Patient was evaluated and deemed to be absent credible lethality, and had achieved the maximum benefit from an inpatient hospitalization, so was discharged. Involuntary Hold Information 96 Hour Hold: 96 Hour Involuntary Admission: Yes 96 Hour Hold Ending Date: 03/05/21 96 Hour Hold Ending Time: 17:27 Mental Status Exam MSE Comments: This is an obese versus morbidly obese white female in hospital scrubs with limited grooming but appropriate eye contact. No abnormal movements except some limited ambulation with a rolling walker.. Cooperative with exam in occasional acute distress. Speech was normal rate and volume. Mood described as okay, affect less labile. Thought process mostly organized. Thought content: Patient denied suicidal or homicidal ideation, there are no delusions or returns about delusional thinking existed, she denied auditory or visual hallucinations. Attention and concentration appeared intact and memory seemed questionable but none were formally tested. She is alert and oriented x3. Insight and judgment appear impaired impulse control appears fair. Discharge Data Data Completed and Pending: Completed Studies During Hospitalization Category Date Time Status CT head wo con* [id number] Urgent Cat Scan 02/27/21 19:37 [place] [id number] Routin e Ultrasound 03/01/21 18:16 Completed Pending at discharge Category Date Time Status Sestamibi Stress Test Request Cristopher ne Exams 03/02/21 12:24 Ordered Prothrombin Time INR AM LABS Lab 03/03/21 04:00 Ordered NM mela perf SPECT r/s* [id number] Routin e Nuc Med 03/05/21 Ordered Labs from last 24 hours 03/02/21 03/02/21 03/02/21 13:40 11:31 10:50 WBC RBC Hgb Hct MCV MCH MCHC RDW Plt Count MPV Neut % (Auto) Lymph % (Auto) [place] % (Auto) Eos % (Auto) Baso % (Auto) Neut # (Auto) Lymph # (Auto) [place] # (Auto) Eos # (Auto) Baso # (Auto) Nucleated RBC % (a uto) Nucleated RBCs # PT INR POC Glucose 93 Troponin T Baselin e Troponin T 120 Min ione 122.5 H Delta Troponin T -12.5 L Troponin T Hi Sens 6Hr 119.3 H Troponin T Hi Sens 6Hr Delta -15.7 L 03/02/21 03/02/21 03/02/21 07:19 07:19 07:19 WBC 5.9 RBC 3.90 L Hgb 11.4 L Hct 37.5 MCV 96.2 MCH 29.2 MCHC 30.4 RDW 18.5 H Plt Count 352 MPV 10.0 Neut % (Auto) 63.0 Lymph % (Auto) 20.5 [place] % (Auto) 13.0 Eos % (Auto) 2.4 Baso % (Auto) 0.8 Neut # (Auto) 3.74 Lymph # (Auto) 1.2 [place] # (Auto) 0.8 Eos # (Auto) 0.1 Baso # (Auto) 0.1 Nucleated RBC % (a uto) 0 Nucleated RBCs # 0.0 PT 19.70 H D INR 1.63 H POC Glucose Troponin T Baselin e 135 H* Troponin T 120 Min ione Delta Troponin T Troponin T Hi Sens 6Hr Troponin T Hi Sens 6Hr Delta 03/02/21 03/01/21 06:38 22:23 WBC RBC Hgb Hct MCV MCH MCHC RDW Plt Count MPV Neut % (Auto) Lymph % (Auto) [place] % (Auto) Eos % (Auto) Baso % (Auto) Neut # (Auto) Lymph # (Auto) [place] # (Auto) Eos # (Auto) Baso # (Auto) Nucleated RBC % (a uto) Nucleated RBCs # PT INR POC Glucose 116 H 98 Troponin T Baselin e Troponin T 120 Min ione Delta Troponin T Troponin T Hi Sens 6Hr Troponin T Hi Sens 6Hr Delta Vitals: Last Vital Signs Temp 97.3 F L 03/02/21 14:00 Pulse 92 03/02/21 14:00 Resp 18 03/02/21 14:00 BP 112/71 03/02/21 14:00 Pulse Ox 91 03/02/21 14:00 Discharge Plan Discharge Patient Disposition: Home Condition: Stable Prescriptions: New bacitracin 500 unit/gram Ointment 1 applic topical TID 30 Days Qty: 1 RF: 0 clopidogrel 75 mg Tablet 75 mg PO DAILY 30 Days Qty: 30 RF: 1 bumetanide 1 mg Tablet 1 mg PO DAILY 30 Days Qty: 30 RF: 1 Continued fenofibrate nanocrystallized 145 mg tablet 145 mg PO DAILY RF: 0 omega-3 fatty acids [Fish Oil Concentrate] 1,000 mg capsule 1,000 mg PO BID RF: 0 sotalol 120 mg tablet 120 mg PO BID Qty: 180 RF: 3 levothyroxine [Euthyrox] 150 mcg tablet 150 mcg PO DAILY RF: 0 potassium chloride 10 mEq tablet extended release 10 meq PO DAILY RF: 0 clobetasol 0.05 % ointment 1 applic TOPICAL BID PRN (Reason: unknown) RF: 0 zinc gluconate 50 mg Tablet 50 mg PO DAILY Qty: 14 RF: 0 diphenhydramine HCl [Benadryl Allergy] 25 mg Tablet 25 mg PO BEDTIME PRN (Reason: Sleep) RF: 0 fluticasone propion-salmeterol [Advair Diskus] 250-50 mcg/dose blister with device 1 puff inhalation BID RF: 0 pantoprazole 40 mg Tablet,Delayed Release (Dr/Ec) 40 mg PO BID Qty: 60 RF: 0 furosemide 20 mg tablet 40 mg PO DAILY 30 Days Qty: 60 RF: 1 metformin 750 mg tablet extended release 24 hr 750 mg PO BID 30 Days Qty: 60 RF: 1 multivitamin Tablet 1 tab PO DAILY RF: 0 Discontinued trazodone 50 mg tablet 50 mg PO BEDTIME RF: 0 doxycycline hyclate 100 mg capsule 100 mg PO DAILY RF: 0 paroxetine HCl 10 mg tablet 10 mg PO DAILY RF: 0 diltiazem HCl 180 mg capsule,extended release 24hr 180 mg PO DAILY RF: 0 warfarin 4 mg tablet See Rx Instructions .ROUTE .COMPLEX RF: 0 warfarin 5 mg tablet See Rx Instructions .ROUTE .COMPLEX RF: 0 No Action trazodone 50 mg tablet 50 mg PO BEDTIME RF: 0 paroxetine HCl 10 mg Tablet 10 mg PO DAILY RF: 0 diltiazem HCl 180 mg capsule,extended release 24hr 180 mg PO DAILY RF: 0 acetaminophen [Acetaminophen Extra Strength] 500 mg Tablet 1,000 mg PO Q6H PRN (Reason: Pain) RF: 0 benzonatate 100 mg Capsule 100 mg PO TID PRN (Reason: UNKNOWN) RF: 0 warfarin 10 mg tablet 10 mg PO DAILY@1400 RF: 0 Discharge Orders: Discharge Order (Routine); Ordered 03/02/21 Ordered By: Bienvenido Heller Referrals: [facility] [Outside] (Please visit to complete an initial assessment. ) Yaw Sinclair MD [Primary Care Provider] - Discharge Diet: Regular Discharge Activity: Resume usual activity Patient Instructions: Opioid Safety Discharge Attestations NPU Time Spent in Discharge Care*: greater than 30 min Specific Discharge Activities: Specific discharge activities: educating patient, discussing with continuous pillowcase cutter/social workers/dc planners, documenting/other paperwork and evaluating patient/reviewing data Status at Discharge: Cognitive status at discharge: cognitively intact , Behavioral status at discharge: cooperative , Coding Level of Care Code Acute Chg FW DC note Diagnoses Elevated troponin I level R77.8 Atherosclerosis of coronary artery of [place] without angina pectoris I25 .10 Chronic atrial fibrillation with RVR I48.20 Pulmonary hypertension I27.20 CHF (congestive heart failure) I50.32 Heart failure chronicity: chronic Heart failure type: diastolic Essential hypertension I10 Dyslipidemia E78.5
[2021-03-02 18:40] VITALS: BP 112/71; PULSE 92; RESP 18; TEMP 36.3; O2SAT 91
== END 2021-03-02 19:00 | disposition home or self-care (01) | DRG 885 ==
LOC: ER 20:04 → NP 21:24
PROVIDERS: Internal Medicine; Admitting Provider Psychiatry & Neurology Child & Adolescent Psychiatry; Emergency Provider Emergency Medicine; PCP Family Medicine; Visit Provider Psychiatry & Neurology Psychiatry
DX: F22 Delusional disorders (principal); I21.A1 Myocardial infarction type 2; I50.33 Acute on chronic diastolic (congestive) heart failure; I48.20 Chronic atrial fibrillation, unspecified; L03.90 Cellulitis, unspecified; I11.0 Hypertensive heart disease with heart failure; E78.5 Hyperlipidemia, unspecified; I27.20 Pulmonary hypertension, unspecified; I25.10 Atherosclerotic heart disease of native coronary artery without angina pectoris; E11.9 Type 2 diabetes mellitus without complications; D50.9 Iron deficiency anemia, unspecified; S70.10XA Contusion of unspecified thigh, initial encounter; X58.XXXA Exposure to other specified factors, initial encounter; Y99.9 Unspecified external cause status; Z95.1 Presence of aortocoronary bypass graft; Z95.5 Presence of coronary angioplasty implant and graft; Z98.51 Tubal ligation status; Z90.710 Acquired absence of both cervix and uterus; Z79.890 Hormone replacement therapy; Z83.3 Family history of diabetes mellitus; Z82.49 Family history of ischemic heart disease and other diseases of the circulatory system; Z79.4 Long term (current) use of insulin; Z79.01 Long term (current) use of anticoagulants
CPT/HCPCS: 36415; 36416; 70450; 80048; 80053; 80306; 80307; 81001; 82962; 84145; 84484; 85025; 85610; 86140; 93005; 93970; 96372; 99285; J1650; J1815

== ENCOUNTER 2021-03-06 12:15 | Emergency (ER) | payer OTHER, SELFPAY ==
--- NOTE | 2021-03-06 | CT_ITS ---
WS: [id number] CT LUMBAR SPINE, noncontrast. HISTORY: FALL LOW BACK PAIN TECHNIQUE: Contiguous 2.5 mm axial imaging are performed. Sagittal and coronal reformats are submitte d and reviewed. All CT scans at [facility] use at least one of these dose optimization te chniques: automated exposure control; mA and/or kV adjustment per patient size (includes targeted exa ms where dose is matched to clinical indication); or iterative reconstruction. IV contrast: None DLP: 2289.25 mGy.cm COMPARISON: None available. L4 lumbar type vertebral bodies. L5 is partially sacralized. Posterior alignment is normal. No fractu res. Moderate bilateral facet joint arthritis and hypertrophy beginning at the L3-4 level. L1-2: Normal. L2-3: Normal. L3-4: Asymmetric disc bulging. RIGHT foraminal disc protrusion without nerve root contact. Moderate l igamentum flavum hypertrophy and facet arthritis. Mild central and RIGHT foraminal narrowing. L4-5: Diffuse annular disc bulging and osteophytic ridging. RIGHT subarticular disc protrusion. Mild bilateral subarticular recess narrowing. L5-S1: L5 vertebral body is partially sacralized. No stenosis. e expansion of the LEFT sacral foramina. 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 Atherosclerosis aorta. Sigmoid diverticular disease without acute diverticulitis. CT/CT lumbar spine wo con* [id number] IMPRESSION: 1. L5 vertebral body appears sacralized. This numbering pattern will be import ant if surgery is ever contemplated in this patient. 2. No acute fractures. 3. Mild central and RIGHT foraminal stenosis at L3-4. 4. Mild bilateral subarticular recess narrowing at L4-5.
[2021-03-06 12:33] VITALS: BP 103/67; PULSE 127; RESP 20; TEMP 37.1; O2SAT 97; BMI 42.9
--- NOTE | 2021-03-06 13:17 | CT_ITS ---
WS: [id number] CT HEAD NONCONTRAST HISTORY: fall, closed head injury TECHNIQUE: Contiguous axial imaging performed through the brain in 2.5 mm imaging. Bone and soft tiss ue windows. Sagittal and coronal reformats reviewed. All CT scans at [facility] use at ast one of these dose optimization techniques: automated exposure control; mA and/or kV adjustment pe r patient size (includes targeted exams where dose is matched to clinical indication); or iterative r econstruction. DLP: 816.41 mGy.cm COMPARISON: 02/27/2021 No acute intracranial hemorrhage, midline shift or mass effect. Mild symmetric atrophy and mild chronic small vessel ischemic change. No prior lacunae. Similar to th e prior study from 02/27/2021. Ventricles: Normal size with no hydrocephalus. Paranasal sinuses: As visualized are clear. Mastoid air cells: Well pneumatized. Calvarium and scalp: No skull fracture is identified. There is a large scalp hematoma centered over t he posterior RIGHT parietal bone towards the vertex. CT/CT head wo con* [id number] IMPRESSION: 1. No acute intracranial hemorrhage or edema. 2. No skull fracture. 3. Large posterior RIGHT parietal scalp hematoma towards the vertex.
[2021-03-06 13:18] VITALS: BP 133/91; PULSE 111; RESP 16; TEMP 36.8; O2SAT 94
[2021-03-06] MEDS: acetaminophen 500 mg Tablet 1000 MG PO (13:25)
--- NOTE | 2021-03-06 13:36 | W.ED.GENADLT ---
HPI - General Adult General: Chief complaint: General Medical Stated complaint: Fell and hit head Time Seen by Provider: 03/06/21 13:05 History of Present Illness: HPI narrative: 61-year-old female presents emergency room complaining of having fallen. She recently hospitalized has a lower leg cellulitis she has put it regularly home health evidently yesterday EMS was out to her home. She went to walk across the street today and slipped and fell states she hit the back of her head there is no loss of consciousness she was previously on anticoagulants but they are evidently stopped recently she is on clopidogrel at this point. There is no loss of consciousness she is not any vomiting or diarrhea she is awake and alert without any focal deficits at this time. Onset (ago): minute(s) Location: head Radiation: non-radiation Severity: mild Quality: dull Relieving factors: none Exacerbating factors: none Associated symptoms: Reports nausea; Deny chest pain, confusion, cough, diaphoresis, decreased appetite, dyspnea, fevers/chills, headache(s), malaise, rash, palpitations, seizures, short of breath, syncope, vomiting or weakness Treatments prior to arrival: none Review of Systems Const: Denies: malaise or diaphoresis ENMT: Denies: throat pain, ear or mastoid pain, nasal discharge or nasal congestion Card: Denies: chest pain, palpitations or syncope Resp: Denies: dyspnea GI: Reports: nausea; Denies: vomiting : Denies: flank pain, difficulty voiding, dysuria, urinary frequency or urinary urgency Skin/Breast: Denies: rash Neuro: Denies: headache(s) or confusion PFSH ED PFSH: Medical History ASHD (arteriosclerotic heart disease) Atrial fibrillation CHF (congestive heart failure) COVID-19 January Dyslipidemia Essential hypertension Hx of deep venous thrombosis Tricuspid incompetence Type 2 diabetes mellitus Surgical History History of coronary artery bypass graft 2004 History of coronary artery stent placement History of total vaginal hysterectomy History of tubal ligation Status post colonoscopy Family History Other CAD (coronary artery disease) Diabetes Hypertension Social History Smoking and tobacco status: never smoked Alcohol intake: current Alcohol intake frequency: holidays/special occasions only Household members: significant other Marital status: Single History of recent travel: No Physical Exam Const: COMMON NORMALS: no acute distress GENERAL APPEARANCE: cooperative and comfortable ORIENTATION/CONSCIOUSNESS: Yes awake, Yes oriented to person, Yes oriented to place and Yes oriented to time HENMT: COMMON NORMALS: normocephalic, atraumatic and hearing grossly normal bilaterally HEAD & SCALP: normocephalic and atraumatic Neck/C-Spine: COMMON NORMALS: no JVD Resp: COMMON NORMALS: normal respiratory effort, No retractions, No use of accessory muscles and clear to auscultation bilaterally AUSCULTATION: clear to auscultation bilaterally Cardio: COMMON NORMALS: no JVD, regular rate, regular rhythm and No murmurs present (Cardio) RATE: regular rate RHYTHM: regular rhythm GI: COMMON NORMALS: Soft to palpation and No hepatosplenomegaly present AUSCULTATION: Yes normoactive bowel sounds PALPATION: Yes Soft to palpation, No Tenderness to palpation present (GI), No Guarding due to palpation present (GI) and Yes No hepatosplenomegaly present Extremity: COMMON NORMALS: normal to inspection, capillary refill normal, no clubbing, cyanosis or edema, no calf tenderness and no pedal edema Neuro: SENSORIUM/ORIENTATION: Yes oriented to person, Yes oriented to place and Yes oriented to time Skin: OTHER: Redness and erythema bilateral lower extremities there is a slight open area the mucousy eschar on the left lower leg. Bandage was removed no active drainage moderately erythematous and indurated. Appears chronic Course Vital Signs: Vital signs: Vital Signs Temperature 98.2 F 03/06/21 13:18 Pulse Rate 111 H 03/06/21 13:18 Respiratory Rate 16 03/06/21 13:18 Blood Pressure 133/91 03/06/21 13:18 Pulse Oximetry 94 03/06/21 13:18 MDM - General Adult MDM Narrative: Medical decision making narrative: CT of the head and lumbar spine unremarkable with exception of the hematoma which is also palpable and noticeable on gross examination. No evidence of fracture. Patient was anxious to leave demanding that she had to go to the bank. She would not stay in the room pressed to redress the left lower leg although she did complain that we had not done so. She was on the way out the door when we brought her her discharge paperwork. Referral informed her of her CT results. Offered to dress her leg but she refused to go back to the room states she has to leave to go to the bank. Lab Data: Labs: Lab Results 03/06/21 03/06/21 Range/Units 13:40 13:40 WBC 7.6 (4.0-10.0) 10^3/ uL RBC 3.93 L (4.1-5.3) 10^6/u L Hgb 11.4 L (11.5-15.3) g/dL Hct 37.1 (37.0-47.0) % MCV 94.4 (81-99) fl MCH 29.0 (28.0-34.0) pg MCHC 30.7 (30.0-36.0) g/dL RDW 17.8 H (12.1-15.1) % Plt Count 361 (130-400) 10^3/c mm MPV 9.6 (7.4-10.4) fL Neut % (Auto) 69.9 % Lymph % (Auto) 13.8 % [place] % (Auto) 13.9 % Eos % (Auto) 1.3 % Baso % (Auto) 0.8 % Neut # (Auto) 5.29 (1.8-7.7) 10^3/u L Lymph # (Auto) 1.0 (0.8-4.8) 10^3/u L [place] # (Auto) 1.1 H (0.2-0.9) 10^3/u L Eos # (Auto) 0.1 (0.0-0.8) 10^3/u L Baso # (Auto) 0.1 (0.0-0.1) 10^3/u L Nucleated RBC % (a uto) 0 % Nucleated RBCs # 0.0 /100WBC Sodium 141 (136-145) mmol/L Potassium 3.6 (3.5-5.1) mmol/L Chloride 99 (98-107) mmol/L Carbon Dioxide 26 (22-29) mmol/L Anion Gap 19.6 H (5-19) BUN 6 L (8-23) mg/dL Creatinine 0.6 (0.5-0.9) mg/dL GFR Calculation 101.3 (90-130) mL/min Glucose 86 (65-115) mg/dL Calculated Osmolal ity 289 (285-295) mOsm/k g Calcium 8.7 (8.5-10.5) mg/dL Total Bilirubin 0.9 (0.15-1.2) mg/dL AST 20 (0-32) U/L ALT 20 (0-33) U/L Alkaline Phosphata se 72 (35-105) IU/L Total Protein 6.5 L (6.6-8.7) g/dL Albumin 3.4 L (3.5-5.2) g/dL Globulin 3.1 (1.3-4.6) g/dL Discharge Plan Discharge Patient Disposition: Home Clinical Impression: Fall, Low back pain, Cellulitis and abscess of leg Condition: Stable Prescriptions: No Action fenofibrate nanocrystallized 145 mg tablet 145 mg PO DAILY RF: 0 omega-3 fatty acids [Fish Oil Concentrate] 1,000 mg capsule 1,000 mg PO BID RF: 0 sotalol 120 mg tablet 120 mg PO BID Qty: 180 RF: 3 levothyroxine [Euthyrox] 150 mcg tablet 150 mcg PO DAILY RF: 0 potassium chloride 10 mEq tablet extended release 10 meq PO DAILY RF: 0 clobetasol 0.05 % ointment 1 applic TOPICAL BID PRN (Reason: unknown) RF: 0 zinc gluconate 50 mg Tablet 50 mg PO DAILY Qty: 14 RF: 0 diphenhydramine HCl [Benadryl Allergy] 25 mg Tablet 25 mg PO BEDTIME PRN (Reason: Sleep) RF: 0 fluticasone propion-salmeterol [Advair Diskus] 250-50 mcg/dose blister with device 1 puff inhalation BID RF: 0 pantoprazole 40 mg Tablet,Delayed Release (Dr/Ec) 40 mg PO BID Qty: 60 RF: 0 bacitracin 500 unit/gram Ointment 1 applic topical TID 30 Days Qty: 1 RF: 0 clopidogrel 75 mg Tablet 75 mg PO DAILY 30 Days Qty: 30 RF: 1 bumetanide 1 mg Tablet 1 mg PO DAILY 30 Days Qty: 30 RF: 1 trazodone 50 mg tablet 50 mg PO BEDTIME 30 Days Qty: 30 RF: 1 furosemide 20 mg tablet 40 mg PO DAILY 30 Days Qty: 60 RF: 1 metformin 750 mg tablet extended release 24 hr 750 mg PO BID 30 Days Qty: 60 RF: 1 multivitamin Tablet 1 tab PO DAILY RF: 0 paroxetine HCl 10 mg Tablet 10 mg PO DAILY RF: 0 diltiazem HCl 180 mg capsule,extended release 24hr 180 mg PO DAILY RF: 0 Acetaminophen Extra Strength 500 mg Tablet 1,000 mg PO Q6H PRN (Reason: Pain) RF: 0 benzonatate 100 mg Capsule 100 mg PO TID PRN (Reason: UNKNOWN) RF: 0 warfarin 10 mg tablet 10 mg PO DAILY@1400 RF: 0 Discharge Orders: Discharge ED (Routine); Ordered 03/06/21 Ordered By: Jean Claude De La Fuente Referrals: Yaw Sinclair MD [Primary Care Provider] - Discharge Diet: Usual diet Discharge Activity: Resume usual activity Patient Instructions: Opioid Safety Activity Restrictions/Additional Instructions: Keep your previously scheduled follow-up with your primary care doctor. Return to emergency room for further problems. Coding Level of Care Code ED Escrow Officer for Jimmie Fwd Exam Comprehensive
[2021-03-06 13:45] LABS: Basophils # 0.1 10^3/uL (0.0-0.1); Basophils % 0.8 %; Eosinophils # 0.1 10^3/uL (0.0-0.8); Eosinophils % 1.3 %; Hematocrit 37.1 % (37.0-47.0); Hemoglobin 11.4 g/dL (11.5-15.3); Lymphocytes % 13.8 %; Mean Corpuscular HGB Conc 30.7 g/dL (30.0-36.0); Mean Corpuscular Volume 94.4 fl (81-99); Mean Platelet Volume 9.6 fL (7.4-10.4); Monocytes # 1.1 10^3/uL (0.2-0.9); Monocytes % 13.9 %; Neutrophils # 5.29 10^3/uL (1.8-7.7); Neutrophils % 69.9 %; Nucleated Red Blood Cells % 0 %; Platelet Count 361 10^3/cmm (130-400); Red Blood Count 3.93 10^6/uL (4.1-5.3); Red Cell Distribution Width 17.8 % (12.1-15.1); White Blood Count 7.6 10^3/uL (4.0-10.0)
[2021-03-06 14:07] LABS: Alanine Aminotransferase 20 U/L (0-33); Albumin Level 3.4 g/dL (3.5-5.2); Alkaline Phosphatase 72 IU/L (35-105); Anion Gap 19.6 (5-19); Aspartate Amino Transferase 20 U/L (0-32); Blood Urea Nitrogen 6 mg/dL (8-23); Calcium 8.7 mg/dL (8.5-10.5); Carbon Dioxide 26 mmol/L (22-29); Chloride 99 mmol/L (98-107); Globulin 3.1 g/dL (1.3-4.6); Glomerular Filtration Rate 101.3 mL/min (90-130); Glucose 86 mg/dL (65-115); Osmolality Calculated 289 mOsm/kg (285-295); Potassium 3.6 mmol/L (3.5-5.1); Sodium 141 mmol/L (136-145); Total Bilirubin 0.9 mg/dL (0.15-1.2); Total Protein 6.5 g/dL (6.6-8.7)
--- NOTE | 2021-03-06 14:27 | PC.NURSE ---
She is crying one point and laughing the next. She is talking very rapidly.
== END 2021-03-06 14:33 | disposition home or self-care (01) ==
PROVIDERS: Emergency Provider Family Medicine; PCP Family Medicine
DX: M54.5 Low back pain (principal); L03.116 Cellulitis of left lower limb; L02.416 Cutaneous abscess of left lower limb; Z79.01 Long term (current) use of anticoagulants; Z79.84 Long term (current) use of oral hypoglycemic drugs; Z79.02 Long term (current) use of antithrombotics/antiplatelets; I11.0 Hypertensive heart disease with heart failure; I50.9 Heart failure, unspecified; E78.5 Hyperlipidemia, unspecified; E11.9 Type 2 diabetes mellitus without complications; Z95.1 Presence of aortocoronary bypass graft
CPT/HCPCS: 70450; 72131; 80053; 85025; 99283

== ENCOUNTER 2021-03-07 18:09 | Inpatient (IN) | payer OTHER, SELFPAY ==
[2021-03-07 18:28] VITALS: BP 179/157; PULSE 149; RESP 16; TEMP 36.4; O2SAT 96; BMI 42.9
--- NOTE | 2021-03-07 18:36 | W.ED.PSYCH ---
HPI - Psych General: Chief Complaint: Psychiatric Symptoms Stated Complaint: 96 hour hold Time Seen by Provider: 03/07/21 18:10 Source: patient and EMS Mode of arrival: EMS Limitations: no limitations History of Present Illness: HPI Narrative: 61-year-old female who is here with EMS under 96-hour hold. Patient has been acting erratic per family. Here she does have flight of ideas and appears extremely manic. She denies any SI or HI but has very pressured speech. Per family she is supposed to go to assisted living and did not and that they states she really is not been taking care of her self. They were concerned that she is a threat to herself. She denies any suicidal or homicidal complaints. She has no medical complaints. Review of Systems Const: Denies: fever(s), chills, body aches or change in appetite Eyes: Denies: blurry vision or eye discomfort ENMT: Denies: throat pain or dental pain Card: Denies: chest pain Resp: Denies: dyspnea GI: Denies: abdominal pain, nausea, vomiting or diarrhea : Denies: dysuria Musc: Denies: neck pain or back pain Skin/Breast: Denies: rash Neuro: Denies: headache(s) Psych: Reports: anxiety Flavio/Lymph: Denies: easy bruising All/Imm: Denies: urticaria PFSH ED PFSH: Medical History ASHD (arteriosclerotic heart disease) Atrial fibrillation CHF (congestive heart failure) COVID-19 January Dyslipidemia Essential hypertension Hx of deep venous thrombosis Tricuspid incompetence Type 2 diabetes mellitus Surgical History History of coronary artery bypass graft 2005 History of coronary artery stent placement History of total vaginal hysterectomy History of tubal ligation Status post colonoscopy Family History Other CAD (coronary artery disease) Diabetes Hypertension Social History Smoking and tobacco status: never smoked Alcohol intake: current Alcohol intake frequency: holidays/special occasions only Household members: significant other Marital status: Single History of recent travel: No Physical Exam Const: COMMON NORMALS: no acute distress, patient oriented x3 and healthy appearing HENMT: COMMON NORMALS: normocephalic and atraumatic HEAD & SCALP: normocephalic and atraumatic Eye: COMMON NORMALS: Equal, round and reactive pupils present and EOMs intact bilaterally PUPIL: Yes Equal, round and reactive pupils present Neck/C-Spine: COMMON NORMALS: full ROM and supple Chest: COMMONS NORMALS: normal inspection of the chest and normal palpation of entire chest wall Resp: COMMON NORMALS: normal respiratory effort, No retractions, No use of accessory muscles and clear to auscultation bilaterally AUSCULTATION: clear to auscultation bilaterally Cardio: COMMON NORMALS: regular rate, regular rhythm and No murmurs present (Cardio) RATE: regular rate RHYTHM: regular rhythm GI: COMMON NORMALS: Normal to inspection, nondistended, normoactive bowel sounds present, Soft to palpation, non-tender and no masses PALPATION: Yes Soft to palpation Extremity: COMMON NORMALS: normal to inspection and full ROM Neuro: COMMON NORMALS: patient oriented x3, moves all extremities and no focal motor deficits Psych: COMMON NORMALS: mental status grossly normal and cooperative MOOD & AFFECT: Yes anxious THOUGHT PROCESS: Flight of ideas present and Illogical thought process present Skin: COMMON NORMALS: no rashes or lesions noted and no wounds GENERAL SKIN EXAM: no rashes or lesions noted Course Vital Signs: Vital signs: Vital Signs Temperature 97.6 F 03/07/21 18:28 Pulse Rate 149 H 03/07/21 18:28 Respiratory Rate 16 03/07/21 18:28 Blood Pressure 179/157 03/07/21 18:28 Pulse Oximetry 96 03/07/21 18:28 MDM - Psych MDM Narrative: Medical decision making narrative: Patient presents here with originally with acute psychosis and is under 96-hour hold but is court ordered. Patient here is in A. fib with RVR and does have chronic A. fib and I believe she likely has not been taking her medicine. Heart rate in the 140s. She improved slightly after Cardizem bolus but did have to be started on a Cardizem drip. Will admit patient as an inpatient and I spoke to the psychiatrist who is consulted. Lab Data: Labs: Lab Results 03/07/21 03/07/21 03/07/21 Range/Units 20:24 20:24 20:24 WBC 6.5 (4.0-10.0) 10^3/ uL RBC 4.00 L (4.1-5.3) 10^6/u L Hgb 11.4 L (11.5-15.3) g/dL Hct 38.2 (37.0-47.0) % MCV 95.5 (81-99) fl MCH 28.5 (28.0-34.0) pg MCHC 29.8 L (30.0-36.0) g/dL RDW 17.9 H (12.1-15.1) % Plt Count 354 (130-400) 10^3/c mm MPV 9.8 (7.4-10.4) fL Neut % (Auto) 63.4 % Lymph % (Auto) 20.1 % [place] % (Auto) 13.3 % Eos % (Auto) 1.7 % Baso % (Auto) 1.2 % Neut # (Auto) 4.11 (1.8-7.7) 10^3/u L Lymph # (Auto) 1.3 (0.8-4.8) 10^3/u L [place] # (Auto) 0.9 (0.2-0.9) 10^3/u L Eos # (Auto) 0.1 (0.0-0.8) 10^3/u L Baso # (Auto) 0.1 (0.0-0.1) 10^3/u L Nucleated RBC % (a uto) 0 % Nucleated RBCs # 0.0 /100WBC PT 19.30 H (12.1-14.9) SECO NDS INR 1.58 H (0.8-1.2) Sodium 140 (136-145) mmol/L Potassium 3.2 L (3.5-5.1) mmol/L Chloride 97 L (98-107) mmol/L Carbon Dioxide 23 (22-29) mmol/L Anion Gap 23.2 H (5-19) BUN 9 (8-23) mg/dL Creatinine 0.6 (0.5-0.9) mg/dL GFR Calculation 101.3 (90-130) mL/min Glucose 87 (65-115) mg/dL Calculated Osmolal ity 288 (285-295) mOsm/k g Calcium 8.5 (8.5-10.5) mg/dL Total Bilirubin 0.8 (0.15-1.2) mg/dL AST 19 (0-32) U/L ALT 18 (0-33) U/L Alkaline Phosphata se 73 (35-105) IU/L Total Protein 6.3 L (6.6-8.7) g/dL Albumin 3.4 L (3.5-5.2) g/dL Globulin 2.9 (1.3-4.6) g/dL Salicylates < 0.3 L (3-10) mg/dL Urine Opiates Scre en (Negative) ng/mL Acetaminophen < 5.0 L (10-30) ug/mL Ur Barbiturates Sc reen (Negative) ng/mL Ur Phencyclidine S crn (Negative) ng/mL Ur Amphetamines Sc reen (Negative) ng/mL U Benzodiazepines Scrn (Negative) ng/mL Urine Cocaine Scre en (Negative) ng/mL U Marijuana (THC) Screen (Negative) ng/mL Ethyl Alcohol < 10 (0-10) mg/dL 03/07/21 Range/Units 22:05 WBC (4.0-10.0) 10^3/ uL RBC (4.1-5.3) 10^6/u L Hgb (11.5-15.3) g/dL Hct (37.0-47.0) % MCV (81-99) fl MCH (28.0-34.0) pg MCHC (30.0-36.0) g/dL RDW (12.1-15.1) % Plt Count (130-400) 10^3/c mm MPV (7.4-10.4) fL Neut % (Auto) % Lymph % (Auto) % [place] % (Auto) % Eos % (Auto) % Baso % (Auto) % Neut # (Auto) (1.8-7.7) 10^3/u L Lymph # (Auto) (0.8-4.8) 10^3/u L [place] # (Auto) (0.2-0.9) 10^3/u L Eos # (Auto) (0.0-0.8) 10^3/u L Baso # (Auto) (0.0-0.1) 10^3/u L Nucleated RBC % (a uto) % Nucleated RBCs # /100WBC PT (12.1-14.9) SECO NDS INR (0.8-1.2) Sodium (136-145) mmol/L Potassium (3.5-5.1) mmol/L Chloride (98-107) mmol/L Carbon Dioxide (22-29) mmol/L Anion Gap (5-19) BUN (8-23) mg/dL Creatinine (0.5-0.9) mg/dL GFR Calculation (90-130) mL/min Glucose (65-115) mg/dL Calculated Osmolal ity (285-295) mOsm/k g Calcium (8.5-10.5) mg/dL Total Bilirubin (0.15-1.2) mg/dL AST (0-32) U/L ALT (0-33) U/L Alkaline Phosphata se (35-105) IU/L Total Protein (6.6-8.7) g/dL Albumin (3.5-5.2) g/dL Globulin (1.3-4.6) g/dL Salicylates (3-10) mg/dL Urine Opiates Scre en Negative (Negative) ng/mL Acetaminophen (10-30) ug/mL Ur Barbiturates Sc reen Negative (Negative) ng/mL Ur Phencyclidine S crn Negative (Negative) ng/mL Ur Amphetamines Sc reen Negative (Negative) ng/mL U Benzodiazepines Scrn Negative (Negative) ng/mL Urine Cocaine Scre en Negative (Negative) ng/mL U Marijuana (THC) Screen Negative (Negative) ng/mL Ethyl Alcohol (0-10) mg/dL EKG Data^: EKG 1: Attestation: I personally reviewed and interpreted this EKG as follows: EKG interpretation date: 03/07/21 EKG interpretation time: 22:29 Interpretation: afib with rvr hr [address] or t wave abnormalities qrs 89 qtc 373 Discharge Plan Discharge Patient Disposition: Admitted As Inpatient Clinical Impression: Atrial fibrillation with RVR, Acute psychosis Condition: Stable Coding Level of Care Code ED Correspondence Section Supervisor for Chg Fwd Exam Comprehensive
--- NOTE | 2021-03-07 19:00 | PC.NURSE ---
Paper scrubs unavailable in patients size, patient placed in gown.
--- NOTE | 2021-03-07 19:06 | PC.PHAR ---
PT IS UNABLE TO CONFIRM MEDICATION. SHE WAS NOT ABLE TO YESTERDAY, BUT I HAD A HOME HEALTH LIST TO GO BY. HOME HEALTH IS CLOSED AT THIS TIME, SO I AM GOING BY THE LIST FROM YESTERDAY. PT IS VERY AGITATED AND WON'T TALK TO ME TODAY.
--- NOTE | 2021-03-07 19:07 | ECG_ITS ---
[facility] ED Test Date: 2021-03-07 Pat Name: Ivette Wheeler Department: Room: Gender: Female [employer] Cloth: : 1960 Requested By: Cherelle Warner Order Number: [id number] [place] MD: Norah Talbot M.D. Measurements Intervals [place] Rate: 138 P: ID: QRS: 53 QRSD: 89 T: 133 QT: 292 QTc: 443 Interpretive Statements ATRIAL FIBRILLATION WITH RAPID VENTRICULAR RESPONSE NONSPECIFIC ST & T-WAVE ABNORMALITY Compared to ECG 03/02/2021 17:38:23 Ventricular premature complex(es) no longer present Aberrant conduction of supraventricular beat(s) no longer present T-wave abnormality still present Electronically Signed On 03-09-2021 18:19:37 CDT by Norah Talbot M.D. [id number]
--- NOTE | 2021-03-07 19:12 | CTR_ITS ---
PROCEDURE INFORMATION: Exam: CT Head Without Contrast Exam date and time: 03/07/2021 7:12 PM Age: 61 years old Clinical indication: Pain; Headache; Additional info: VASQUEZ TECHNIQUE: Imaging protocol: Computed tomography of the head without contrast. Radiation optimization: All CT scans at this facility use at least one of these dose optimization techniques: automated exposure control; mA and/or kV adjustment per patient size (includes targeted exams where dose is matched to clinical indication); or iterative reconstruction. COMPARISON: CT head wo con* [id number] 03/06/2021 1:57 PM RADIATION DOSE METRICS: Total DLP (mGy-cm): 850.85 FINDINGS: Brain: Normal. No hemorrhage. Unremarkable white matter. No mass effect. Cerebral ventricles: No ventriculomegaly. Paranasal sinuses: Visualized sinuses are unremarkable. No fluid levels. Mastoid air cells: Visualized mastoid air cells are well aerated. Bones/joints: Unremarkable. No acute fracture. Soft tissues: Unremarkable. CT/CT head wo con* [id number] IMPRESSION: No acute intracranial abnormality. Radiation Dose CTDIVOL = (mGy): DLP = 850.85 (mGy-cm)
[2021-03-07 20:36] LABS: Basophils # 0.1 10^3/uL (0.0-0.1); Basophils % 1.2 %; Eosinophils # 0.1 10^3/uL (0.0-0.8); Eosinophils % 1.7 %; Hematocrit 38.2 % (37.0-47.0); Hemoglobin 11.4 g/dL (11.5-15.3); Lymphocytes # 1.3 10^3/uL (0.8-4.8); Lymphocytes % 20.1 %; Mean Corpuscular HGB Conc 29.8 g/dL (30.0-36.0); Mean Corpuscular Hemoglobin 28.5 pg (28.0-34.0); Mean Corpuscular Volume 95.5 fl (81-99); Mean Platelet Volume 9.8 fL (7.4-10.4); Monocytes # 0.9 10^3/uL (0.2-0.9); Monocytes % 13.3 %; Neutrophils # 4.11 10^3/uL (1.8-7.7); Neutrophils % 63.4 %; Nucleated Red Blood Cells % 0 %; Platelet Count 354 10^3/cmm (130-400); Red Cell Distribution Width 17.9 % (12.1-15.1); White Blood Count 6.5 10^3/uL (4.0-10.0)
[2021-03-07 20:49] LABS: INR 1.58 (0.8-1.2)
[2021-03-07 20:56] LABS: Alanine Aminotransferase 18 U/L (0-33); Albumin Level 3.4 g/dL (3.5-5.2); Alkaline Phosphatase 73 IU/L (35-105); Anion Gap 23.2 (5-19); Aspartate Amino Transferase 19 U/L (0-32); Blood Urea Nitrogen 9 mg/dL (8-23); Calcium 8.5 mg/dL (8.5-10.5); Carbon Dioxide 23 mmol/L (22-29); Chloride 97 mmol/L (98-107); Globulin 2.9 g/dL (1.3-4.6); Glomerular Filtration Rate 101.3 mL/min (90-130); Glucose 87 mg/dL (65-115); Osmolality Calculated 288 mOsm/kg (285-295); Potassium 3.2 mmol/L (3.5-5.1); Sodium 140 mmol/L (136-145); Total Bilirubin 0.8 mg/dL (0.15-1.2); Total Protein 6.3 g/dL (6.6-8.7)
[2021-03-07 21:00] LABS: Acetaminophen < 5.0 ug/mL (10-30); Alcohol Level < 10 mg/dL (0-10); Salicylate < 0.3 mg/dL (3-10)
[2021-03-07] MEDS: diphenhydrAMINE 50 mg/mL SDV 1mL IM (22:06)
[2021-03-07] MEDS: LORazepam 2 mg/mL INJ 1 mL 1 MG IM (22:07)
[2021-03-07 22:25] LABS: Amphetamines Screen Urine Negative (Negative); Barbiturates Screen Urine Negative (Negative); Benzodiazepines Screen Urine Negative (Negative); Cocaine Screen Urine Negative (Negative); Opiate Screen Urine Negative (Negative); PCP Screen Urine Negative (Negative); THC Screen Urine Negative (Negative)
[2021-03-07] MEDS: sodium chloride 0.9% 1,000 ML 999 ML IV (23:53)
[2021-03-08] VITALS (12 sets, daily range): BP systolic 94–132; BP diastolic 57–88; PULSE 90–129; RESP 15–26; TEMP 36.8; O2SAT 93–100
[2021-03-08] MEDS: sodium chloride 0.9% 1,000 ML 999 ML IV (02:44)
--- NOTE | 2021-03-08 04:47 | PC.NURSE ---
Patient blood pressure 94/64, notified provider, diltiazem drip stopped per verbal order.
--- NOTE | 2021-03-08 06:32 | P.HP_ITS ---
Providers/Chief Complaint Admitting Physician: Sandra Chen MD Primary Care Provider: Yaw Sinclair MD Chief Complaint: SUICIDAL IDEATIONS History of Present Illness Ivette Wheeler is a 61 year old female who presented to the emergency room with 96-hour hold paperwork via EMS. She was recently here for neuropsychiatric admission for depression with psychoses. She was so suicidal then as well. Looks like she was discharged on March 02 with several new prescriptions including an increased dose of diltiazem, Plavix, Bumex, increased Coumadin, Zoloft, Abilify and bacitracin. She was noted to have significant flight of ideas and kalia in the emergency room. She has received some Ativan some not able to get any history directly from her. ER notes indicate that family stated she was supposed to go to an assisted living facility but did not and has not been taking care of herself. She has chronic atrial fibrillation and was noted to be in atrial fibrillation with rapid ventricular response in the ER. She was watched for quite some time without improvement in her rate control and was ultimately put on a Cardizem drip. Hospitalist were consulted for admission to medically stabilize her before planned psychiatric stay. Review of Systems General: Reports: ROS unobtainable due to medical condition and ROS unobtainable due to mental status Medications/Allergies Home Medications Medication Instructions Recorded Confirmed Last Taken Type fenofibrate nanocrystallized 145 145 mg PO DAILY 12/30/19 03/07/21 02/08/21 History mg tablet sotalol 120 mg tablet 120 mg PO BID #180 tab 11/14/20 03/07/21 02/08/21 Rx omega-3 fatty acids 1,000 mg 1,000 mg PO BID cap 01/12/21 03/07/21 01/22/21 06:00 History capsule clobetasol 1 applic TOPICAL BID PRN 01/22/21 03/07/21 Unknown History levothyroxine [Euthyrox] 150 mcg PO DAILY 01/22/21 03/07/21 02/08/21 History potassium chloride 10 meq PO DAILY 01/22/21 03/07/21 02/08/21 History zinc gluconate 50 mg PO DAILY #14 tab 01/25/21 03/07/21 02/08/21 Rx diphenhydramine HCl [Benadryl 25 mg PO BEDTIME PRN 02/08/21 03/07/21 02/07/21 History Allergy] fluticasone propion-salmeterol 1 puff INHALATION BID 02/08/21 03/07/21 02/08/21 History [Advair Diskus] pantoprazole 40 mg PO BID #60 tab 02/11/21 03/07/21 Unknown Rx multivitamin 1 tab PO DAILY 02/17/21 03/07/21 Unknown History bacitracin 1 applic TOPICAL TID 30 Days #1 03/02/21 03/07/21 Unknown Rx tube bumetanide 1 mg PO DAILY 30 Days #30 tab 03/02/21 03/07/21 Unknown Rx clopidogrel 75 mg PO DAILY 30 Days #30 tab 03/02/21 03/07/21 Unknown Rx furosemide 40 mg PO DAILY 30 Days #60 tab 03/02/21 03/07/21 Unknown Rx metformin 750 mg PO BID 30 Days #60 tab 03/02/21 03/07/21 Unknown Rx acetaminophen [Acetaminophen Extra 1,000 mg PO Q6H PRN 03/06/21 03/07/21 Unknown History Strength] benzonatate 100 mg PO TID PRN 03/06/21 03/07/21 Unknown History diltiazem HCl 180 mg PO DAILY 03/06/21 03/07/21 Unknown History paroxetine HCl 10 mg PO DAILY 03/06/21 03/07/21 Unknown History warfarin 10 mg PO DAILY@1400 03/06/21 03/07/21 Unknown History trazodone 50 mg PO BEDTIME 03/07/21 03/07/21 Unknown History Allergies Allergy/AdvReac Type Severity Reaction Status Date / Time atorvastatin [From Lipitor] Allergy Unknown Verified 02/27/21 17:47 lisinopril Allergy Unknown Verified 02/27/21 17:47 PFSH Acute PFSH: Medical History (Updated 03/08/21 @ 06:46 by Sandra Chen MD) ASHD (arteriosclerotic heart disease) Atrial fibrillation CHF (congestive heart failure) COVID-19 January Dyslipidemia Essential hypertension Hx of deep venous thrombosis Mitral valve regurgitation Pulmonary hypertension Tricuspid valve regurgitation Type 2 diabetes mellitus Surgical History History of coronary artery bypass graft 2004 History of coronary artery stent placement History of total vaginal hysterectomy History of tubal ligation Status post colonoscopy Family History Other CAD (coronary artery disease) Diabetes Hypertension Social History (Updated 03/08/21 @ 06:45 by Sandra Chen MD) Smoking and tobacco status: never smoked Alcohol intake: current Alcohol intake frequency: holidays/special occasions only Household members: significant other Marital status: Single Vitals/I&O/Wt Last Vital Signs Temp 97.6 F 03/07/21 18:28 Pulse 99 03/08/21 05:00 Resp 26 H 03/08/21 05:00 BP 117/88 03/08/21 05:00 Pulse Ox 99 03/08/21 05:00 03/07/21 03/07/21 03/08/21 14:59 22:59 06:59 Intake Total 1017.5 / 1017.5 Balance 1017.5 / 1017.5 Weight last 48 hrs Weight 113.398 kg Physical Exam Narrative: EXAM NARRATIVE: Constitutional: Sleeping, moves around but not opening eyes or cooperative currently HEENT: Face symmetric, injected sclera Neck: Supple Respiratory: Clear to auscultation bilaterally Cardiovascular: Tachycardic irregular rhythm Abdomen: Soft, nontender, positive bowel sounds : Erythema with satellite lesions in the groin extending up onto the lower pannus Extremities: 3+ edema, some oozing edema noted more so to the right leg than the left leg Skin: Erythema with mild warmth bilateral lower extremities between knee and ankle, extending to the feet, stasis in appearance with a peau d'orange noted, desquamation in sore noted to the left medial leg with serous bulla on right lo wer leg x1 Neuro: Moves both hands and feet when touched during examination but not fully awakened at this time for full neurological exam due to degree of kalia earlier Psych: Currently sleeping/sedated Data : 03/07/21 20:24 03/07/21 20:24 Other data: Laboratory Results WBC 6.5 10^3/uL (4.0-10.0) 03/07/21 20:24 RBC 4.00 10^6/uL (4.1-5.3) L 03/07/21 20:24 Hgb 11.4 g/dL (11.5-15.3) L 03/07/21 20:24 Hct 38.2 % (37.0-47.0) 03/07/21 20: MCV 95.5 fl (81-99) 03/07/21 20:24 MCH 28.5 pg (28.0-34.0) 03/07/21 20: MCHC 29.8 g/dL (30.0-36.0) L 03/07/21: RDW 17.9 % (12.1-15.1) H 03/07/21 20:24 Plt Count 354 10^3/cmm (130-400) 03/07/21 20:24 MPV 9.8 fL (7.4-10.4) 03/07/21 20:24 Neut % (Auto) 63.4 % 03/07/21 20: Lymph % (Auto) 20.1 % 03/07/21 20: [place] % (Auto) 13.3 % 03/07/21: Eos % (Auto) 1.7 % 03/07/21: Baso % (Auto) 1.2 % 03/07/21 20: Neut # (Auto) 4.11 10^3/uL (1.8-7.7) 03/07/21: Lymph # (Auto) 1.3 10^3/uL (0.8-4.8) 03/07/21 20:24 [place] # (Auto) 0.9 10^3/uL (0.2-0.9) 03/07/21: Eos # (Auto) 0.1 10^3/uL (0.0-0.8) 03/07/21 20: Baso # (Auto) 0.1 10^3/uL (0.0-0.1) 03/07/21: Nucleated RBC % (auto) 0 % 03/07/21: Nucleated RBCs # 0.0 /100WBC 03/07/21 20: PT 19.30 SECONDS (12.1-14.9) H 03/07/21 20:24 INR 1.58 (0.8-1.2) H 03/07/21 20:24 Sodium 140 mmol/L (136-145) 03/07/21 20:24 Potassium 3.2 mmol/L (3.5-5.1) L 03/07/21 20:24 Chloride 97 mmol/L (98-107) L 03/07/21 20:24 Carbon Dioxide 23 mmol/L (22-29) 03/07/21 20:24 Anion Gap 23.2 (5-19) H 03/07/21 20:24 BUN 9 mg/dL (8-23) 03/07/21 20:24 Creatinine 0.6 mg/dL (0.5-0.9) 03/07/21 20:24 GFR Calculation 101.3 mL/min (90-130) 03/07/21 20:24 Glucose 87 mg/dL (65-115) 03/07/21 20:24 Calculated Osmolality 288 mOsm/kg (285-295) 03/07/21 20:24 Calcium 8.5 mg/dL (8.5-10.5) 03/07/21 20:24 Total Bilirubin 0.8 mg/dL (0.15-1.2) 03/07/21 20:24 AST 19 U/L (0-32) 03/07/21 20:24 ALT 18 U/L (0-33) 03/07/21 20:24 Alkaline Phosphatase 73 IU/L (35-105) 03/07/21 20:24 Total Protein 6.3 g/dL (6.6-8.7) L 03/07/21 20:24 Albumin 3.4 g/dL (3.5-5.2) L 03/07/21 20:24 Globulin 2.9 g/dL (1.3-4.6) 03/07/21 20:24 Salicylates < 0.3 mg/dL (3-10) L 03/07/21 20:24 Urine Opiates Screen Negative ng/mL (Negative) 03/07/21 22:05 Acetaminophen < 5.0 ug/mL (10-30) L 03/07/21 20:24 Ur Barbiturates Screen Negative ng/mL (Negative) 03/07/21 22:05 Ur Phencyclidine Scrn Negative ng/mL (Negative) 03/07/21 22:05 Ur Amphetamines Screen Negative ng/mL (Negative) 03/07/21 22:05 U Benzodiazepines Scrn Negative ng/mL (Negative) 03/07/21 22:05 Urine Cocaine Screen Negative ng/mL (Negative) 03/07/21 22:05 U Marijuana (THC) Screen Negative ng/mL (Negative) 03/07/21 22:05 Ethyl Alcohol < 10 mg/dL (0-10) 03/07/21 20:[address] 03/07/21 19:12 IMPRESSION: No acute intracranial abnormality. Radiation Dose CTDIVOL = (mGy): DLP = 850.85 (mGy-cm) A&P Assessment and plan (1) Fall: Status: Acute Qualifiers: Encounter type: initial encounter Qualified Code(s): W19.XXXA - Unspecified fall, initial encounter (2) Acute psychosis: Status: Acute (3) Atrial fibrillation with RVR: Status: Acute (4) Diastolic CHF: Status: Chronic Qualifiers: Heart failure chronicity: acute on chronic Qualified Code(s): I50.33 - Acute on chronic diastolic (congestive) heart failure (5) Cellulitis: Stasis cellulitis Status: Acute Qualifiers: Site of cellulitis: extremity Site of cellulitis of extremity: lower extremity Laterality: unspecified laterality Qualified Code(s): L03.119 - Cellulitis of unspecified part of limb (6) Chronic anticoagulation: Status: Chronic Additional A&P Information Tinea corporis Had heme positive stool, thigh hematoma and acute blood loss anemia in January of this year Inpatient admission Telemetry monitoring Serial cardiac enzymes Fall precautions Resume home sotalol and Coumadin Cardizem drip was stopped in the emergency room due to drop in blood pressures Daily INR IV diuresis Monitor I's and O's and weights Anxiolytics as needed Check urinalysis Bacitracin to lower extremities Nystatin to groin Home medications as ordered Was seen by Dr. Anderson last hospital stay and looks to follow with Dr. Cunningham outpatient, had recent stress testing and echocardiogram Lovenox for DVT prophylaxis until INR is therapeutic Has a 96-hour hold, court ordered Consultants: Psychiatry is consulted Anticipated Disposition: Psychiatric unit when medical stable Code Status: Full Attestations Medical Necessity Statement*: Anticipated stay greater than two midnights in a patient with 96-hour hold, court ordered, with A. fib with RVR, lower extremity edema with stasis cellulitis. 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
--- NOTE | 2021-03-08 06:53 | ECG_ITS ---
[facility] Test Date: 2021-03-08 Pat Name: Ivette Wheeler Department: Room: Gender: Female Manager Customer Service: : 1960 Requested By: Sandra Chen Order Number: [id number] [place] MD: Norah Talbot M.D. Measurements Intervals [place] Rate: 106 P: CT: QRS: 49 QRSD: 93 T: 120 QT: 356 QTc: 475 Interpretive Statements ATRIAL FIBRILLATION WITH RAPID VENTRICULAR RESPONSE NONSPECIFIC ST & T-WAVE ABNORMALITY Compared to ECG 03/07/2021 22:29:17 No significant changes Electronically Signed On 03-09-2021 18:19:30 CDT by Norah Talbot M.D. [email or web address].Jump[employer]/store/[id number]
--- NOTE | 2021-03-08 07:41 | PC.NURSE ---
multiple failed attempts to get troponin and bnp
--- NOTE | 2021-03-08 08:52 | ECG_ITS ---
[facility] Test Date: 2021-03-08 Pat Name: Ivette Wheeler Department: Room: EDIP Gender: Female Inspector Metal Can: : 1960 Requested By: Sandra Chen Order Number: [id number] [place] MD: Norah Talbot M.D. Measurements Intervals [place] Rate: 104 P: SD: QRS: 14 QRSD: 90 T: 87 QT: 364 QTc: 480 Interpretive Statements ATRIAL FIBRILLATION WITH RAPID VENTRICULAR RESPONSE NONSPECIFIC ST & T-WAVE ABNORMALITY ABNORMAL RHYTHM ECG Compared to ECG 03/08/2021 07:03:28 No significant changes Electronically Signed On 03-09-2021 18:28:48 CDT by Norah Talbot M.D. [id number]
[2021-03-08] MEDS: fenofibrate 145 mg Tablet PO (10:21)
[2021-03-08] MEDS: omega-3 fatty acids 1,000 mg Capsule 1000 MG PO ×2 (10:21→18:27)
[2021-03-08] MEDS: levothyroxine 150 mcg Tablet PO (10:21)
[2021-03-08] MEDS: nystatin powder 15 gm Btl 1 APPLIC TOPICAL ×2 (10:22→18:27)
[2021-03-08] MEDS: sotalol 80 mg Tablet PO ×2 (10:22→20:30)
[2021-03-08] MEDS: pantoprazole DR 40 mg Tablet PO ×2 (10:25→18:27)
[2021-03-08] MEDS: FUROsemide 10 mg/mL SDV 4mL 40 MG IVP (10:25)
[2021-03-08] MEDS: enoxaparin 40 mg/0.4 mL Syringe SUBCUT (10:25)
[2021-03-08] MEDS: clopidogrel 75 mg Tablet PO (10:25)
[2021-03-08] MEDS: potassium chloride ER 10 mEq Tablet PO (10:25)
[2021-03-08 11:01] LABS: INR 1.62 (0.8-1.2)
[2021-03-08 11:15] LABS: Troponin(5th) Baseline 30 ng/L (0-10)
[2021-03-08 11:19] LABS: Anion Gap 18.3 (5-19); Blood Urea Nitrogen 7 mg/dL (8-23); Calcium 7.9 mg/dL (8.5-10.5); Carbon Dioxide 24 mmol/L (22-29); Chloride 103 mmol/L (98-107); Glucose 74 mg/dL (65-115); Magnesium 1.8 mg/dL (1.7-2.3); NT Pro B Type Natriuretic Pept 1514 pg/mL (0-125); Osmolality Calculated 291 mOsm/kg (285-295); Phosphorus 3.5 mg/dL (2.5-4.5); Potassium 3.3 mmol/L (3.5-5.1); Sodium 142 mmol/L (136-145)
[2021-03-08 12:01] LABS: Add Urine Microscopic? NO; Charge for UA Resulting for Rev
[2021-03-08 12:09] LABS: Urine Color Yellow (Yellow)
[2021-03-08 12:10] LABS: Bilirubin Urine Neg (Negative); Blood Urine Neg (Negative); Glucose Urine UA Norm (Normal); Ketones Urine Negative (Negative); Leukocyte Esterase Urine Negative (Negative); Nitrate Urine Negative (Negative); Protein Urine Neg (Negative); Urine Appearance Clear (CLEAR); Urobilinogen Urine 1 mg/dL (Negative); pH Urine 5 (5-7)
--- NOTE | 2021-03-08 12:52 | ECG_ITS ---
[facility] Test Date: 2021-03-08 Pat Name: Ivette Wheeler Department: Room: 111 Gender: Female Integrated Circuits Inspector: : 1960 Requested By: Sandra Chen Order Number: [id number] [place] MD: Norah Talbot M.D. Measurements Intervals [place] Rate: 104 P: AK: QRS: 20 QRSD: 90 T: 146 QT: 373 QTc: 492 Interpretive Statements ATRIAL FIBRILLATION WITH RAPID VENTRICULAR RESPONSE POSSIBLE ANTERIOR MYOCARDIAL INFARCTION , PROBABLY OLD [30 ms Q WAVE IN V3/V4, OR R < 0.2 mV IN V4] ABNORMAL RHYTHM ECG Compared to ECG 03/08/2021 09:44:42 Myocardial infarct finding now present T-wave abnormality no longer present Electronically Signed On 03-09-2021 18:27:49 CDT by Norah Talbot M.D. [email or web address] systemCRV[facility].[employer]/store/[id number]
[2021-03-08 13:50] LABS: Troponin 5 2HR 28.52 ng/L (0-10)
[2021-03-08 13:54] LABS: Troponin 5 2HR Delta -1.48 ABS# (0-10)
[2021-03-08] MEDS: warfarin 10 mg Tablet PO (16:06)
[2021-03-08] MEDS: acetaminophen 325 mg Tablet 650 MG PO ×2 (16:09→23:27)
[2021-03-08] MEDS: LORazepam 2 mg/mL INJ 1 mL 1 MG IVP (16:59)
[2021-03-08 17:47] LABS: Troponin 5 6HR 28.31 ng/L (0-10)
[2021-03-08 17:50] LABS: Troponin 5 6HR Delta -1.69 ng/L (0-12)
[2021-03-08] MEDS: bacitracin ointment 28 gm TOPICAL (18:28)
--- NOTE | 2021-03-08 19:00 | PC.NURSE ---
Bedside report received from GIANNA Sanchez. Patient is in bed watching TV, with sitter at bedside. Patient is talking excessively about how she is being held against her will and that she is upset with her daughter for having her put on a 96. Nurse will continue to monitor and redirect as needed.
--- NOTE | 2021-03-08 19:39 | PC.NURSE ---
Shift Note Frequent safety and comfort rounds continue. Orders and/or nursing care completed as indicated. Patient monitored for response to intervention and treatment(s). Education provided includes[ medications, activity and telemetry. Patient and/or product sales representative verbalizes understanding. 1:1 sitter at bedside for her [address] Pedro notified on pt's upper extremities and lower extremities rashes. Will continue to monitor.
[2021-03-08] MEDS: diphenhydrAMINE 25 mg Capsule PO (20:30)
[2021-03-08] MEDS: cetylpyridinium Lozenge 1 EACH MUCOUS MEM ×2 (20:30→23:27)
--- NOTE | 2021-03-08 23:56 | PC.NURSE ---
Assisted patient to restroom with use of walker. patient tolerated activity well.
[2021-03-09] VITALS (9 sets, daily range): BP systolic 108–124; BP diastolic 65–88; PULSE 88–132; RESP 18–24; TEMP 36–36.7; O2SAT 94–98
[2021-03-09] MEDS: LORazepam 2 mg/mL INJ 1 mL 1 MG IVP (04:27)
--- NOTE | 2021-03-09 04:29 | PC.NURSE ---
Patient is having increasing anxiety. She is talking excessively with pressured speech. Patient goes from talking to crying and then to laughing. Administered Ativan 1mg IM. Nurse to monitor for medication effectiveness.
--- NOTE | 2021-03-09 06:00 | ECG_ITS ---
[facility] Test Date: 2021-03-09 Pat Name: Ivette Wheeler Department: Room: 111 Gender: Female Tablet Technician: : 1960 Requested By: Sandra Chen Order Number: [id number] [place] MD: Parish Anderson M.D. Measurements Intervals [place] Rate: 105 P: MD: QRS: 35 QRSD: 95 T: 36 QT: 372 QTc: 494 Interpretive Statements ATRIAL FIBRILLATION WITH RAPID VENTRICULAR RESPONSE WITH ABERRANT CONDUCTION OR VENTRICULAR PREMATURE COMPLEXES Diffuse nonspecific T wave changes ABNORMAL RHYTHM ECG Compared to ECG 03/08/2021 13:12:11 Aberrant conduction of supraventricular beat(s) now present Ventricular premature complex(es) now present Myocardial infarct finding no longer present Electronically Signed On 03-09-2021 19:39:25 CDT by Parish Anderson M.D. [email or web address].Zuberance/store/[id number]
[2021-03-09 06:19] LABS: Basophils # 0.1 10^3/uL (0.0-0.1); Basophils % 1.6 %; Eosinophils # 0.2 10^3/uL (0.0-0.8); Eosinophils % 4.4 %; Hematocrit 37.4 % (37.0-47.0); Hemoglobin 10.8 g/dL (11.5-15.3); Lymphocytes % 22.7 %; Mean Corpuscular HGB Conc 28.9 g/dL (30.0-36.0); Mean Corpuscular Hemoglobin 28.4 pg (28.0-34.0); Mean Corpuscular Volume 98.4 fl (81-99); Monocytes # 0.8 10^3/uL (0.2-0.9); Monocytes % 16.7 %; Neutrophils # 2.45 10^3/uL (1.8-7.7); Neutrophils % 54.4 %; Nucleated Red Blood Cells % 0 %; Platelet Count 286 10^3/cmm (130-400); Red Cell Distribution Width 17.9 % (12.1-15.1); White Blood Count 4.5 10^3/uL (4.0-10.0)
[2021-03-09 06:33] LABS: INR 1.15 (0.8-1.2)
[2021-03-09 06:44] LABS: Alanine Aminotransferase 16 U/L (0-33); Albumin Level 2.9 g/dL (3.5-5.2); Alkaline Phosphatase 65 IU/L (35-105); Anion Gap 12.2 (5-19); Aspartate Amino Transferase 21 U/L (0-32); Blood Urea Nitrogen 10 mg/dL (8-23); Carbon Dioxide 28 mmol/L (22-29); Chloride 105 mmol/L (98-107); Globulin 2.6 g/dL (1.3-4.6); Glomerular Filtration Rate 101.3 mL/min (90-130); Glucose 94 mg/dL (65-115); Magnesium 1.7 mg/dL (1.7-2.3); Osmolality Calculated 293 mOsm/kg (285-295); Phosphorus 3.6 mg/dL (2.5-4.5); Potassium 3.2 mmol/L (3.5-5.1); Sodium 142 mmol/L (136-145); Total Bilirubin 0.6 mg/dL (0.15-1.2); Total Protein 5.5 g/dL (6.6-8.7)
--- NOTE | 2021-03-09 07:15 | PC.NURSE ---
Shift Rounds. Patient awake, sitting up in bed. Conversing with her 1:1 sitter. Speech is clear, there is some flight of ideas as she moves quickly from one subject o next. Patient is smiling.
--- NOTE | 2021-03-09 08:00 | PC.NURSE ---
Patient is restless. Has requested multiple position changes in past 30 minutes. She has been repositioned several times and sheets smoothed.
[2021-03-09] MEDS: enoxaparin 40 mg/0.4 mL Syringe SUBCUT (10:05)
[2021-03-09] MEDS: nystatin powder 15 gm Btl 1 APPLIC TOPICAL (10:06)
[2021-03-09] MEDS: clopidogrel 75 mg Tablet PO (10:06)
[2021-03-09] MEDS: fenofibrate 145 mg Tablet PO (10:06)
[2021-03-09] MEDS: sotalol 80 mg Tablet PO ×2 (10:06→22:00)
[2021-03-09] MEDS: omega-3 fatty acids 1,000 mg Capsule 1000 MG PO ×2 (10:07→17:44)
[2021-03-09] MEDS: pantoprazole DR 40 mg Tablet PO ×2 (10:07→17:44)
[2021-03-09] MEDS: potassium chloride ER 10 mEq Tablet PO (10:07)
[2021-03-09] MEDS: levothyroxine 150 mcg Tablet PO (10:07)
[2021-03-09] MEDS: FUROsemide 10 mg/mL SDV 4mL 40 MG IVP (10:08)
[2021-03-09] MEDS: warfarin 10 mg Tablet PO (13:54)
[2021-03-09] MEDS: bacitracin ointment 28 gm TOPICAL (15:53)
--- NOTE | 2021-03-09 16:23 | PM.PN ---
Subjective Subjective: Interval history: No new clinical events overnight. Rate controlled. Medications: Reviewed: Yes Vitals/I&O/Wt Last Vital Signs Temp 98.0 F 03/09/21 14:24 Pulse 117 H 03/09/21 14:24 Resp 19 H 03/09/21 14:24 BP 108/74 03/09/21 14:24 Pulse Ox 97 03/09/21 14:24 Weight last 48 hrs Weight 101.877 kg Weight 113.398 kg Physical Exam Narrative: EXAM NARRATIVE: General: alert awake oriented HEENT: Grossly unremarkable CVS: Variable S1-S2 with signs of heart failure Chest : non-labored respiration Abd: nonDistended abdomen with obesity Neuro exam nonfocal patient appears very anxious, flight of ideas disorganized thinking does show paranoia Data : 03/09/21 06:00 03/09/21 06:00 A&P Assessment and plan (1) Fall: Status: Inactive Qualifiers: Encounter type: initial encounter Qualified Code(s): W19.XXXA - Unspecified fall, initial encounter (2) Acute psychosis: Status: Acute (3) Atrial fibrillation with RVR: Status: Resolved (4) Diastolic CHF: Status: Resolved Qualifiers: Heart failure chronicity: acute on chronic Qualified Code(s): I50.33 - Acute on chronic diastolic (congestive) heart failure (5) Cellulitis: Stasis cellulitis Status: Acute Qualifiers: Laterality: unspecified laterality Site of cellulitis: extremity Site of cellulitis of extremity: lower extremity Qualified Code(s): L03.119 - Cellulitis of unspecified part of limb (6) Chronic anticoagulation: Status: Chronic (7) Chronic atrial fibrillation with RVR: Status: Resolved (8) Atherosclerosis of coronary artery of [place] heart without angina pectoris: Status: Chronic (9) Hematoma of thigh: Status: Resolved Qualifiers: Encounter type: initial encounter Laterality: left Qualified Code(s): S70.12XA - Contusion of left thigh, initial encounter (10) Supratherapeutic INR: Status: Resolved Additional A&P Information Medically stable to transfer to inpatient psych Attestations Medical Necessity Statement*: Will require further hospitalization for psychiatric illness. Time Spent in Patient Care: Greater than 35 minutes (>than 50% of time spent in counselling and/or direct pt care on unit). Coding Level of Care Code Acute Master Deputy [address] Security for Chg Fwd Diagnoses Fall W19.XXXA Encounter type: initial encounter Acute psychosis F23 Atrial fibrillation with RVR I48.91 Diastolic CHF I50.33 Heart failure chronicity: acute on chronic Cellulitis L03.119 Laterality: unspecified laterality Site of cellulitis: extremity Site of cellulitis of extremity: lower extremity Chronic anticoagulation Z79.01 Chronic atrial fibrillation with RVR I48.20 Atherosclerosis of coronary artery of [place] heart without angina pectoris I25.10 Hematoma of thigh S70.12XA Encounter type: initial encounter Laterality: left Supratherapeutic INR R79.1
[2021-03-09] MEDS: hyDROXYzine 25 mg Capsule 50 MG PO (19:02)
[2021-03-09] MEDS: acetaminophen 325 mg Tablet 650 MG PO (19:03)
[2021-03-09] MEDS: cetylpyridinium Lozenge 1 EACH MUCOUS MEM (22:00)
[2021-03-09] MEDS: trazodone 50 mg Tablet PO (22:00)
[2021-03-10] VITALS (7 sets, daily range): BP systolic 106–111; BP diastolic 76–84; PULSE 112–118; RESP 16–22; TEMP 36.2–36.8; O2SAT 91–96
--- NOTE | 2021-03-10 03:37 | PC.NURSE ---
patient stated that she had been tricked by the police and was brought in on a 72 hour hold. When explained to her that we do not do 72 hour holds, we only have 96 hour holds, she said well then everyone here has been lying to me, all of the nursing staff has told me 72 hours and i can leave Patient was jumping from topic to topic not making a lot of sense. I explained a question she asked me then patient said if you aren't going to listen to anything i have to say then you can just leave
[2021-03-10] MEDS: cetylpyridinium Lozenge 1 EACH MUCOUS MEM ×2 (06:15→14:52)
[2021-03-10] MEDS: acetaminophen 325 mg Tablet 650 MG PO (06:15)
--- NOTE | 2021-03-10 10:00 | P.HP_ITS ---
Providers/Chief Complaint Admitting Physician: Sandra Chen MD Primary Care Provider: Yaw Sincalir MD Chief Complaint: SUICIDAL IDEATIONS HPI NPU History of Present Illness Ivette Wheeler is a 61 year old female who presented to the emerge department with the following report: Chief Complaint: Psychiatric Symptoms Stated Complaint: 96 hour hold Time Seen by Provider: 03/07/21 18:10 Source: patient and EMS Mode of arrival: EMS Limitations: no limitations History of Present Illness: HPI Narrative: 61-year-old female who is here with EMS under 96-hour hold. Patient has been acting erratic per family. Here she does have flight of ideas and appears extremely manic. She denies any SI or HI but has very pressured speech. Per family she is supposed to go to assisted living and did not and that they states she really is not been taking care of her self. They were concerned that she is a threat to herself. She denies any suicidal or homicidal complaints. She has no medical complaints. She was admitted to the [facility] for definitive treatment of the medical concerns. After she was medically stable request for transfer to the neuropsychiatric unit for definitive treatment of her issues was requested. Patient presents today reporting that she does not know why she is here. She denies that the issues that were raised are valid and endorses a desire to be discharged back home. The affidavits report erratic behavior. Her making choices about her medical care that are unsafe. Attempting to walk across the road when she can barely walk down the hallway. Endorsing that she was being abused by everyone around her. As dependent as she is on assistance she reportedly ran her home nurse off. She denies any of these behaviors and became very frustrated not wanting to talk further about the situation. She denies any changes from when she left last week but reports that even then she should not have been here. Per he / [facility] inpatient psychiatric evaluation: History of Present Illness Ivette Wheeler is a 61 year old female who presented to the [facility] ED on a 96-hour hold for acute change in behavior with delusions and requests for her boyfriend to shoot and kill. She was medically stabilized and cleared. ED note states: 61yo patient w/ hx of multiple psychiatric issues including psychosis and kalia presents for psychiatric clearance. Patient placed under psych involuntary hold for episodes of delusion leading to inability to take care of self and suicidal ideation (asking boyfriend to fire a gun at her). On arrival, the patient is AAOx3 and cooperative with my evaluation. No focal complaints of chest pain, shortness of breath, palpitations, N/V, focal GI/ complaints. Currently denies SI/HI. No complaints of hallucinations... On reassessment, labs and workup wnl. Patient is hemodynamically stable with no acute medical complaints. Discussed findings of leg swelling and erythema with patient who reports that she is seeing primary care provider for the symptoms. Patient has had these findings since her heart attack a few months ago. Patient report that she has not found any antibiotics. Concern for cellulitis, I have offered patient antibiotics for the lower extremity swelling and erythema, patient declined this time. I have discussed with psychiatric provider Dr. Landa who agrees with plan for admission for psych unit. Patient's daughter, Carol Bright, states in her petition dated 02/27/2021, she is having a change in her behavior. She is having delusions and being very hostile to anyone that tries to help her. She is not meeting her basic needs. She has a lot of health problems, not taking her medication, eating or sleeping. She asked her live-in boyfriend to take her out in the yard and she would her many times. She begs God to take her. An affidavit from Brenton Stoll Deangelo sworn on 02/27/2021 states, I am concerned for the safety and wellbeing of Ivette Wheeler due to her increasingly worsening depression and bizarre delusional behaviors. She has been experiencing hallucinations, speaking to people who are not there. She believes her TV is recording everyone's actions in her home. She has asked her long-term live-in boyfriend to shoot her on several occasions. Anyone who disagrees with her delusions is against her and she becomes verbally abusive, threatens to call the police. Given her extensive medical history and medical needs, I am concerned that she is not taking care of her self at this time. She is not been taking her medications, eating, sleeping or caring for herself as she once did. The changes in her behavior and mental health have steadily declined since her son, Dayron Wheeler, committed suicide in August of this year. She tries to manipulate nearly everyone into doing everything for her, despite her being physically capable. Failure to do what she wants causes her to become verbally abusive. She is capable of acting of sound mind for some period of time. The patient reports that she has been feeling depressed, has not slept for a week, has decreased appetite and energy, and has feelings of helplessness, hopelessness and worthlessness. When asked about suicidal ideation, she says, I would just as soon . I told my grandson that, and I meant it. She also says I beg my boyfriend to kill me. I was tired of feeling so sick. She denies homicidal ideation. She denies hearing voices and seeing things that others do not see. However she says I am talking to Noel every day. The Lord is working through me. She says this in a somewhat mysterious way and cannot explain what she means. The patient reports this is her first psychiatric hospitalization. She says she has not taken psychiatric medication until recently, when someone prescribed an antipsychotic, which she does not think she needs. She said she had her first therapy session the other day with Dr. Porter. She says she drinks an occasional jayme, and does not use drugs or cigarettes. Psychiatric history: As above. Substance use history: As above. Family history: Patient denies mental health or addiction issues on either side of the family and denies suicide attempts or completions in the family. Psychosocial history: Patient says she grew up in the [facility], but lived in [place] for some period of time. 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. She says she was once and has 2 children. Legal history: No legal difficulties. Medical history?discharge note from [facility] medical unit on 02/18/2021 states: This is a 60-year-old female with a past medical history of diastolic CHF, CAD status post CABG, with most recent history of stenting 02/26/2020, atrial fibrillation, history of supratherapeutic INR with thigh hematoma leading to anemia, needing admissions between February 08 to February 11, recent COVID-19 infection, recent ER visit for heat exhaustion, currently her Plavix was discontinued, Coumadin was held since 725, who presents to [facility] due to complaints of generalized weakness and intermittent chest pain. For patient's chest pain, she was admitted to [facility] for NSTEMI, elevated troponins, 6-hour troponin to 14.7, 6-hour delta 13.7, no new EKG changes, echocardiogram showed mildly reduced ejection fraction to 50%, with mild anterior and septal wall hypokinesis, cardiology was consulted, who recommended medical management, with continuing to hold Coumadin and Plavix given her anemia and her left thigh hematoma, with outpatient follow-up for consideration of stress testing. Decision to resume anticoagulation and antiplatelet therapy will be made once patient follows up with cardiology as outpatient, hematoma is stable, hemoglobin is stable. Patient will follow up with cardiology in the next week. Patient was advised short of recurrent chest pain, the emergency room. Meds NPU Home Medications Medication Instructions Recorded Confirmed Last Taken Type fenofibrate nanocrystallized 145 145 mg PO DAILY 12/30/19 03/07/21 02/08/21 History mg tablet sotalol 120 mg tablet 120 mg PO BID #180 tab 11/14/20 03/07/21 02/08/21 Rx omega-3 fatty acids 1,000 mg 1,000 mg PO BID cap 01/12/21 03/07/21 01/22/21 06:00 History capsule clobetasol 1 applic TOPICAL BID PRN 01/22/21 03/07/21 Unknown History levothyroxine [Euthyrox] 150 mcg PO DAILY 01/22/21 03/07/21 02/08/21 History potassium chloride 10 meq PO DAILY 01/22/21 03/07/21 02/08/21 History zinc gluconate 50 mg PO DAILY #14 tab 01/25/21 03/07/21 02/08/21 Rx diphenhydramine HCl [Benadryl 25 mg PO BEDTIME PRN 02/08/21 03/07/21 02/07/21 History Allergy] fluticasone propion-salmeterol 1 puff INHALATION BID 02/08/21 03/07/21 02/08/21 History [Advair Diskus] pantoprazole 40 mg PO BID #60 tab 02/11/21 03/07/21 Unknown Rx multivitamin 1 tab PO DAILY 02/17/21 03/07/21 Unknown History bacitracin 1 applic TOPICAL TID 30 Days #1 03/02/21 03/07/21 Unknown Rx tube bumetanide 1 mg PO DAILY 30 Days #30 tab 03/02/21 03/07/21 Unknown Rx clopidogrel 75 mg PO DAILY 30 Days #30 tab 03/02/21 03/07/21 Unknown Rx furosemide 40 mg PO DAILY 30 Days #60 tab 03/02/21 03/07/21 Unknown Rx metformin 750 mg PO BID 30 Days #60 tab 03/02/21 03/07/21 Unknown Rx acetaminophen [Acetaminophen Extra 1,000 mg PO Q6H PRN 03/06/21 03/07/21 Unknown History Strength] benzonatate 100 mg PO TID PRN 03/06/21 03/07/21 Unknown History diltiazem HCl 180 mg PO DAILY 03/06/21 03/07/21 Unknown History paroxetine HCl 10 mg PO DAILY 03/06/21 03/07/21 Unknown History warfarin 10 mg PO DAILY@1400 03/06/21 03/07/21 Unknown History trazodone 50 mg PO BEDTIME 03/07/21 03/07/21 Unknown History Allergies Allergy/AdvReac Type Severity Reaction Status Date / Time atorvastatin [From Lipitor] Allergy Unknown Verified 02/27/21 17:47 lisinopril Allergy Unknown Verified 02/27/21 17:47 PFSH NPU PFSH: Medical History (Updated 03/08/21 @ 06:46 by Sandra Chen MD) ASHD (arteriosclerotic heart disease) Atrial fibrillation CHF (congestive heart failure) COVID-19 January Dyslipidemia Essential hypertension Hx of deep venous thrombosis Mitral valve regurgitation Pulmonary hypertension Tricuspid valve regurgitation Type 2 diabetes mellitus Surgical History History of coronary artery bypass graft 2005 History of coronary artery stent placement History of total vaginal hysterectomy History of tubal ligation Status post colonoscopy Family History Other CAD (coronary artery disease) Diabetes Hypertension Social History (Updated 03/08/21 @ 06:45 by Sandra Chen MD) Smoking and tobacco status: never smoked Alcohol intake: current Alcohol intake frequency: holidays/special occasions only Household members: significant other Marital status: Single Mental Status Exam MSE Comments: This is an obese versus morbidly obese white female in hospital scrubs with limited grooming but appropriate eye contact. No abnormal movements except for psychomotor retardation. Semicooperative with exam in mild distress. Speech was normal rate and volume. Mood described as okay, affect labile. Thought process mostly organized. Thought content: Patient denied suicidal or homicidal ideation, there are no delusions reported, but concerns for delusional thinking existed, she denied auditory or visual hallucinations. Attention and concentration appeared intact and memory seemed questionable but none were formally tested. She is alert and oriented x3. Insight and judgment appear impaired impulse control appears limited. Vitals/I&O/Wt Last Vital Signs Temp 98.0 F 03/09/21 20:34 Pulse 132 H 03/09/21 20:34 Resp 18 03/09/21 20:34 BP 112/65 03/09/21 20:34 Pulse Ox 96 03/09/21 20:34 Weight last 48 hrs Weight 101.877 kg Data NPU : 03/09/21 06:00 03/09/21 06:00 A&P Assessment and plan (1) Cellulitis: Status: Acute Qualifiers: Site of cellulitis: extremity Site of cellulitis of extremity: lower extremity Laterality: unspecified laterality Qualified Code(s): L03.119 - Cellulitis of unspecified part of limb (2) Fall: Status: Acute Qualifiers: Encounter type: initial encounter Qualified Code(s): W19.XXXA - Unspecified fall, initial encounter (3) Acute psychosis: Status: Acute (4) Chronic atrial fibrillation with RVR: Status: Chronic (5) Atherosclerosis of coronary artery of [place] heart without angina pectoris: Status: Chronic (6) Elevated troponin I level: Status: Acute (7) Anemia: Status: Acute Qualifiers: Anemia type: iron deficiency Iron deficiency anemia type: other iron deficiency Qualified Code(s): D50.8 - Other iron deficiency anemias (8) NSTEMI (non-ST elevated myocardial infarction): Status: Acute (9) Acute blood loss anemia: Status: Acute (10) Diastolic CHF: Status: Chronic Qualifiers: Heart failure chronicity: acute on chronic Qualified Code(s): I50.33 - Acute on chronic diastolic (congestive) heart failure (11) Atrial fibrillation with RVR: Status: Acute (12) Chronic anticoagulation: Status: Chronic (13) Hematoma of thigh: Status: Acute Qualifiers: Encounter type: initial encounter Laterality: left Qualified Code(s): S70.12XA - Contusion of left thigh, initial encounter (14) Heme + stool: Status: Acute Additional A&P Information Ivette Wheeler is a 61 year old female who presented to the [facility] ED on a 96-hour hold having just recently been discharged for similar symptoms about a week ago with psychosis, erratic behavior, put herself in dangerous situations with seemingly very impulsive behavior. 1. Continue current medication. 2. Continue every 15 minute checks for safety. 3. Encourage individual, group and milieu therapies. 4. Encourage sober living treatment after discharge at the highest level of care to which she is willing to commit. Explore whether there is a chance that this has any relation to do with benzodiazepine presence or withdrawal. 5. Will follow hospitalist's recommendations on medical comorbidities. Involuntary Hold Information 96 Hour Hold: 96 Hour Involuntary Admission: Yes 96 Hour Hold Ending Date: 03/14/21 96 Hour Hold Ending Time: 02:17 Attestations NPU Medical Necessity Statement*: Inpatient hospitalization is medically necessary and the clinically appropriate intervention at this time. We will monitor med ications and make changes as indicated. Patient will be in the hospital for over two midnights. Likely length of stay 3 to 5 days. Coding Level of Care Code Acute Hand Spray Operator for Jimmie Arias Diagnoses Cellulitis L03.119 Site of cellulitis: extremity Site of cellulitis of extremity: lower extremity Laterality: unspecified laterality Fall W19.XXXA Encounter type: initial encounter Acute psychosis F23 Chronic atrial fibrillation with RVR I48.20 Atherosclerosis of coronary artery of [place] heart without angina pectoris I25.10 Elevated troponin I level R77.8 Anemia D50.8 Anemia type: iron deficiency Iron deficiency anemia type: other iron deficiency NSTEMI (non-ST elevated myocardial infarction) I21.4 Acute blood loss anemia D62 Diastolic CHF I50.33 Heart failure chronicity: acute on chronic Atrial fibrillation with RVR I48.91 Chronic anticoagulation Z79.01 Hematoma of thigh S70.12XA Encounter type: initial encounter Laterality: left Heme + stool R19.5
[2021-03-10] MEDS: omega-3 fatty acids 1,000 mg Capsule 1000 MG PO (11:11)
[2021-03-10] MEDS: sotalol 80 mg Tablet PO ×2 (11:11→20:01)
[2021-03-10] MEDS: levothyroxine 150 mcg Tablet PO (11:11)
[2021-03-10] MEDS: fenofibrate 145 mg Tablet PO (11:11)
[2021-03-10] MEDS: potassium chloride ER 10 mEq Tablet PO (11:12)
[2021-03-10] MEDS: pantoprazole DR 40 mg Tablet PO (11:12)
[2021-03-10] MEDS: clopidogrel 75 mg Tablet PO (11:12)
[2021-03-10] MEDS: bacitracin ointment 28 gm TOPICAL ×2 (11:13→17:36)
[2021-03-10 12:05] LABS: INR 2.36 (0.8-1.2)
[2021-03-10] MEDS: diphenhydrAMINE 25 mg Capsule PO (13:24)
[2021-03-10] MEDS: warfarin 10 mg Tablet PO (14:01)
[2021-03-10] MEDS: ibuprofen 800 mg tablet PO (16:38)
[2021-03-10] MEDS: trazodone 50 mg Tablet PO (20:01)
[2021-03-10] MEDS: hyDROXYzine 25 mg Capsule 50 MG PO (20:01)
--- NOTE | 2021-03-10 20:40 | ECG_ITS ---
[facility] Test Date: 2021-03-10 Pat Name: Ivette Wheeler Department: Room: 154 Gender: Female Sports Agent: : 1960 Requested By: Sandra Chen Order Number: [id number] [place] MD: Norah Talbot M.D. Measurements Intervals [place] Rate: 112 P: RI: QRS: 30 QRSD: 93 T: 28 QT: 358 QTc: 489 Interpretive Statements ATRIAL FIBRILLATION WITH RAPID VENTRICULAR RESPONSE LOW QRS VOLTAGE IN PRECORDIAL LEADS [QRS DEFLECTION < 1.0 mV IN CHEST LEADS] MINIMAL ST DEPRESSION [0.025+ mV ST DEPRESSION] Compared to ECG 03/09/2021 06:34:53 Low QRS voltage now present ST (T wave) deviation now present Aberrant conduction of supraventricular beat(s) no longer present Ventricular premature complex(es) no longer present T-wave abnormality no longer present Electronically Signed On 03-12-2021 13:27:42 CDT by Norah Talbot M.D. [id number]
[2021-03-10 22:41] LABS: Troponin(5th) Baseline 36 ng/L (0-10)
[2021-03-11 00:48] LABS: Troponin 5 2HR 35.03 ng/L (0-10)
[2021-03-11 01:01] LABS: Troponin 5 2HR Delta -0.97 ABS# (0-10)
[2021-03-11] MEDS: acetaminophen 325 mg Tablet 650 MG PO (02:38)
[2021-03-11] MEDS: cetylpyridinium Lozenge 1 EACH MUCOUS MEM ×3 (02:38→22:18)
--- NOTE | 2021-03-11 02:49 | ECG_ITS ---
[facility] Test Date: 2021-03-11 Pat Name: Ivette Wheeler Department: Room: 154 Gender: Female Qualification Engineer: : 1960 Requested By: Sandra Chen Order Number: [id number] [place] MD: Norah Talbot M.D. Measurements Intervals [place] Rate: 118 P: IN: QRS: 27 QRSD: 90 T: 8 QT: 337 QTc: 473 Interpretive Statements ATRIAL FIBRILLATION WITH RAPID VENTRICULAR RESPONSE NONSPECIFIC ST & T-WAVE ABNORMALITY ABNORMAL RHYTHM ECG Compared to ECG 03/10/2021 21:12:09 T-wave abnormality now present ST (T wave) deviation no longer present Electronically Signed On 03-12-2021 20:38:36 CDT by Norah Talbot M.D. [id number]
[2021-03-11 05:43] LABS: Troponin 5 6HR 33.88 ng/L (0-10)
[2021-03-11 05:44] LABS: Troponin 5 6HR Delta -2.12 ng/L (0-12)
[2021-03-11 05:55] LABS: INR 3.08 (0.8-1.2)
[2021-03-11 05:56] VITALS: BP 109/73; PULSE 105; RESP 19; TEMP 36.6; O2SAT 98
[2021-03-11 09:46] VITALS: PULSE 105; RESP 19
[2021-03-11] MEDS: levothyroxine 150 mcg Tablet PO (09:50)
[2021-03-11] MEDS: fenofibrate 145 mg Tablet PO (09:50)
[2021-03-11] MEDS: sotalol 80 mg Tablet PO ×2 (09:50→22:18)
[2021-03-11] MEDS: clopidogrel 75 mg Tablet PO (09:50)
[2021-03-11] MEDS: pantoprazole DR 40 mg Tablet PO ×2 (09:50→17:31)
[2021-03-11] MEDS: potassium chloride ER 10 mEq Tablet PO (09:50)
--- NOTE | 2021-03-11 10:17 | PM.NPN ---
Subjective NPU Subjective: Interval history: Ivette Palumbo presented today much like her general presentation being very emotional nonstop talking about getting home and selling her house. Feeling like she has been tricked in taking advantage of by the system as she now understands that the weekends do not count on 96-hour hold. She was a never-ending onslaught of physical complaints as well as complaints about her frustration with the process. We did identify some concerns about the continuity of care moving from the medical side with her Lasix and things of that nature and so we requested a hospitalist take a look at her medications. We agreed to await their response and get some collateral information with her daughter and other sources in the morning to determine how to manage her continued challenges. She continues to deny any concerns with her behaviors that are listed on the 96-hour hold affidavits. Mental Status Exam MSE Comments: This is an obese versus morbidly obese white female in hospital scrubs with adequate grooming and appropriate eye contact. No abnormal movements except for mild psychomotor agitation. Semicooperative with exam in mild to moderate distress. Speech was normal rate and volume. Mood described as upset, affect labile. Thought process mostly organized. Thought content: Patient denied suicidal or homicidal ideation, there are no delusions reported, but concerns for delusional thinking existed still surrounding her son, she denied auditory or visual hallucinations. Attention and concentration appeared intact and memory seemed questionable but none were formally tested. She is alert and oriented x3. Insight and judgment appear limited impulse control appears limited. Vitals/I&O/Wt Last Vital Signs Temp 97.8 F 03/11/21 05:56 Pulse 105 H 03/11/21 09:46 Resp 19 H 03/11/21 09:46 BP 109/73 03/11/21 05:56 Pulse Ox 98 03/11/21 05:56 Weight last 48 hrs Weight 104.78 kg Weight 104.78 kg Data NPU : 03/09/21 06:00 03/09/21 06:00 A&P Additional A&P Information (1) Cellulitis: (2) Fall: (3) Acute psychosis: (4) Chronic atrial fibrillation with RVR: (5) Atherosclerosis of coronary artery of [place] heart without angina pectoris: (6) Elevated troponin I level: (7) Anemia: (8) NSTEMI (non-ST elevated myocardial infarction): (9) Acute blood loss anemia: (10) Diastolic CHF: (11) Atrial fibrillation with RVR: (12) Chronic anticoagulation: (13) Hematoma of thigh: (14) Heme + stool: Additional A&P Information Ivette Wheeler is a 61 year old female who presented to the [facility] ED on a 96-hour hold having just recently been discharged for similar symptoms about a week ago with psychosis, erratic behavior, put herself in dangerous situations with seemingly very impulsive behavior. 1. Continue current medication. 2. Continue every 15 minute checks for safety. 3. Encourage individual, group and milieu therapies. 4. Will follow hospitalist's recommendations on medical comorbidities. Involuntary Hold Information 96 Hour Hold: 96 Hour Involuntary Admission: Yes 96 Hour Hold Ending Date: 03/14/21 96 Hour Hold Ending Time: 02:17 Attestations NPU Medical Necessity Statement*: Inpatient hospitalization is medically necessary and the clinically appropriate intervention at this time. We will monitor medications and make changes as indicated. Likely length of stay 2-4 days. Coding Level of Care Code Acute Drafting Teacher for Jimmie Arias
--- NOTE | 2021-03-11 11:00 | PC.NURSE ---
PT CONSULT; SPOKE WITH DR BRANDON PER PHONE AT 1100 03/11/[address] CARE. DR BRANDON REPORTS THAT HE IS STILL FOLLOWING CLIENTS CARE AND THAT HE WILL COME AND SEE HER ON THE UNIT TODAY.
[2021-03-11 11:03] VITALS: BP 130/62; PULSE 108; RESP 20; TEMP 36.1; O2SAT 96
[2021-03-11] MEDS: ibuprofen 800 mg tablet PO (13:45)
[2021-03-11] MEDS: warfarin 10 mg Tablet 5 MG PO (13:50)
[2021-03-11 14:00] VITALS: BP 92/68; PULSE 120; RESP 22; TEMP 36.2; O2SAT 96
[2021-03-11] MEDS: FUROsemide 40 mg Tablet PO (15:16)
[2021-03-11] MEDS: omega-3 fatty acids 1,000 mg Capsule 1000 MG PO (17:31)
[2021-03-11 20:25] VITALS: PULSE 106; RESP 18; O2SAT 96
[2021-03-11 21:00] VITALS: BP 108/67; PULSE 112; RESP 21; TEMP 36.7; O2SAT 95
[2021-03-11] MEDS: bacitracin ointment 28 gm TOPICAL (22:18)
[2021-03-11] MEDS: hyDROXYzine 25 mg Capsule 50 MG PO (22:19)
[2021-03-12 06:00] VITALS: BP 108/79; PULSE 112; RESP 21; TEMP 37; O2SAT 100
[2021-03-12] MEDS: omega-3 fatty acids 1,000 mg Capsule 1000 MG PO ×2 (08:19→17:12)
[2021-03-12] MEDS: FUROsemide 40 mg Tablet PO (08:19)
[2021-03-12] MEDS: potassium chloride ER 10 mEq Tablet PO (08:19)
[2021-03-12] MEDS: pantoprazole DR 40 mg Tablet PO ×2 (08:19→17:12)
[2021-03-12] MEDS: fenofibrate 145 mg Tablet PO (08:20)
[2021-03-12] MEDS: clopidogrel 75 mg Tablet PO (08:20)
[2021-03-12] MEDS: levothyroxine 150 mcg Tablet PO (08:20)
[2021-03-12] MEDS: sotalol 80 mg Tablet PO ×2 (08:22→21:18)
[2021-03-12 10:54] LABS: INR 3.64 (0.8-1.2)
[2021-03-12] MEDS: ibuprofen 800 mg tablet PO ×2 (13:18→21:55)
[2021-03-12] MEDS: cetylpyridinium Lozenge 1 EACH MUCOUS MEM ×2 (13:18→21:19)
[2021-03-12 14:00] VITALS: BP 105/73; PULSE 112; RESP 16; TEMP 36.7; O2SAT 97
[2021-03-12] MEDS: warfarin 2.5 mg Tablet PO (14:28)
--- NOTE | 2021-03-12 18:28 | PM.NPN ---
Subjective NPU Subjective: Interval history: Deepali presents today continuing her illness ranting about her previous life, her being railroaded into the hospital by her daughter, her leading to discharge to manage her affairs and how unfair it is that the 96-hour hold does not include weekends or holidays. I sat down with her and let her talk without interruption. She continued to reiterate the same things of the last several days. Advised her that her 96-hour hold is up tomorrow and we had no plan to initiate a 21-day-old. Mental Status Exam MSE Comments: This is an obese versus morbidly obese white female in hospital scrubs with adequate grooming and appropriate eye contact. No abnormal movements except for mild psychomotor agitation. More cooperative with exam in mild distress. Speech was normal rate and volume. Mood described as better, I do not need to be here, affect less labile. Thought process organized. Thought content: Patient denied suicidal or homicidal ideation, there are no delusions reported, but concerns for delusional thinking existed still surrounding her son, she denied auditory or visual hallucinations. Attention and concentration appeared intact and memory seemed questionable but none were formally tested. She is alert and oriented x3. Insight and judgment appear limited, but improving impulse control appears limited. Vitals/I&O/Wt Last Vital Signs Temp 98.8 F 03/12/21 20:41 Pulse 113 H 03/12/21 20:41 Resp 15 03/12/21 20:41 BP 100/62 03/12/21 20:41 Pulse Ox 96 03/12/21 20:41 Weight last 48 hrs Weight 104.78 kg Data NPU : 03/09/21 06:00 03/09/21 06:00 A&P Additional A&P Information (1) Cellulitis: (2) Fall: (3) Acute psychosis: (4) Chronic atrial fibrillation with RVR: (5) Atherosclerosis of coronary artery of [place] heart without angina pectoris: (6) Elevated troponin I level: (7) Anemia: (8) NSTEMI (non-ST elevated myocardial infarction): (9) Acute blood loss anemia: (10) Diastolic CHF: (11) Atrial fibrillation with RVR: (12) Chronic anticoagulation: (13) Hematoma of thigh: (14) Heme + stool: Additional A&P Information Ivette Wheeler is a 61 year old female who presented to the [facility] ED on a 96-hour hold having just recently been discharged for similar symptoms about a week ago with psychosis, erratic behavior, put herself in dangerous situations with seemingly very impulsive behavior. 1. Continue current medication. 2. Continue every 15 minute checks for safety. 3. Encourage individual, group and milieu therapies. 4. Will follow hospitalist's recommendations on medical comorbidities, and identify any recommendations for management after discharge. Involuntary Hold Information 96 Hour Hold: 96 Hour Involuntary Admission: Yes 96 Hour Hold Ending Date: 03/14/21 96 Hour Hold Ending Time: 02:17 Attestations NPU Medical Necessity Statement*: Inpatient hospitalization is medically necessary and the clinically appropriate intervention at this time. We will monitor medications and make changes as indicated. Plan for discharge tomorrow. Coding Level of Care Code Acute Eligibility Examiner for Jimmie Arias
[2021-03-12 20:41] VITALS: BP 100/62; PULSE 113; RESP 15; TEMP 37.1; O2SAT 96
[2021-03-12] MEDS: bacitracin ointment 28 gm TOPICAL (21:19)
[2021-03-12] MEDS: OLANZapine 5 mg ODT PO (21:19)
[2021-03-12] MEDS: hyDROXYzine 25 mg Capsule 50 MG PO (21:19)
--- NOTE | 2021-03-12 21:25 | PC.NURSE ---
Zyprexa given for agitation / anxiety.
--- NOTE | 2021-03-12 21:25 | PC.NURSE ---
Vistaril 50mg PO given for anxiety; 5mg Zyprexa PO given for agitation /psychosis
[2021-03-13] MEDS: acetaminophen 325 mg Tablet 650 MG PO (00:09)
[2021-03-13] MEDS: haloperidol 5 mg Tablet PO (00:15)
--- NOTE | 2021-03-13 00:18 | PC.NURSE ---
patient given 5mg Haldol PO for agitation and severe anxiety / psychosis.
--- NOTE | 2021-03-13 00:18 | PC.NURSE ---
Patient very anxious and agitated. Zyprexa 5mg given
--- NOTE | 2021-03-13 00:20 | PC.NURSE ---
Haldol 5mg given for agitation / psychosis
[2021-03-13 06:00] VITALS: RESP 18
[2021-03-13 09:10] VITALS: PULSE 105; RESP 17; O2SAT 99
[2021-03-13] MEDS: FUROsemide 40 mg Tablet PO (09:27)
[2021-03-13] MEDS: omega-3 fatty acids 1,000 mg Capsule 1000 MG PO (09:27)
[2021-03-13] MEDS: fenofibrate 145 mg Tablet PO (09:27)
[2021-03-13] MEDS: clopidogrel 75 mg Tablet PO (09:27)
[2021-03-13] MEDS: potassium chloride ER 10 mEq Tablet PO (09:27)
[2021-03-13] MEDS: levothyroxine 150 mcg Tablet PO (09:27)
[2021-03-13] MEDS: pantoprazole DR 40 mg Tablet PO (09:27)
[2021-03-13 10:17] LABS: INR 4.05 (0.8-1.2)
[2021-03-13] MEDS: sotalol 80 mg Tablet PO ×2 (10:26→22:18)
[2021-03-13] MEDS: bacitracin ointment 28 gm TOPICAL ×2 (10:39→22:10)
--- NOTE | 2021-03-13 12:28 | P.PN_ITS ---
Subjective NPU Subjective: Interval history: Deepali presents today very frustrated at not being discharged. With not being reasonable or rational about the dangers related to her elevated labs and risk of falling. She was admitted secondary to falling on the road and now has elevated coagulation times the put her at significant risk. I explained to her that I would need her medical provider/the hospitalist to give medical clearance before we could consider discharging her I spoken to the provider earlier he had advised me to hold her Coumadin for 3 or 4 days as well as identified the risk for a fall in this condition and has plans of coming by later to make sure we have a safe and effective plan. She was able to articulate her condition, she was able to talk about the medications, but she was unable to articulate surrounding the risks to her if she were to leave and could only focus on her choice that she wanted to leave. She gave no rational explanation on how she would avoid one of the dangers outcomes that would occur if she left and repeated her behavior that led to her hospitalization. I attempted to explain to her that barring the doctor medically clearing her that I would not be able to allow her to leave for medical reasons irregardless of her psychiatric presentation. Mental Status Exam MSE Comments: This is an obese versus morbidly obese white female in hospital scrubs with adequate grooming and appropriate eye contact. No abnormal movements except for mild psychomotor agitation. More cooperative with exam in mild to moderate distress. Speech was slightly increased rate and volume. Mood described as better, I do not need to be here, affect labile and tearful. Thought process organized. Thought content: Patient denied suicidal or homicidal ideation, there are no delusions reported, but concerns for delusional thinking existed still surrounding her son, she denied auditory or visual hallucinations. Attention and concentration appeared intact and memory seemed questionable but none were formally tested. She is alert and oriented x3. Insight and judgment appear limited, but improving impulse control appears limited. Vitals/I&O/Wt Last Vital Signs Temp 98.8 F 03/12/21 20:41 Pulse 105 H 03/13/21 09:10 Resp 17 03/13/21 09:10 BP 100/62 03/12/21 20:41 Pulse Ox 99 03/13/21 09:10 Data NPU : 03/09/21 06:00 03/09/21 06:00 A&P Additional A&P Information (1) Cellulitis: (2) Fall: (3) Acute psychosis: (4) Chronic atrial fibrillation with RVR: (5) Atherosclerosis of coronary artery of [place] heart without angina pectoris: (6) Elevated troponin I level: (7) Anemia: (8) NSTEMI (non-ST elevated myocardial infarction): (9) Acute blood loss anemia: (10) Diastolic CHF: (11) Atrial fibrillation with RVR: (12) Chronic anticoagulation: (13) Hematoma of thigh: (14) Heme + stool: Additional A&P Information Ivette Wheeler is a 61 year old female who presented to the [facility] ED on a 96-hour hold having just recently been discharged for similar symptoms about a week ago with psychosis, erratic behavior, put herself in dangerous situations with seemingly very impulsive behavior. 1. Continue current medication. 2. Continue every 15 minute checks for safety. 3. Encourage individual, group and milieu therapies. 4. Will follow hospitalist's recommendations on medical comorbidities, and identify any recommendations for management after discharge and if he would jeanette medical clearance for her discharge given the change in her coagulation status.. Involuntary Hold Information 96 Hour Hold: 96 Hour Involuntary Admission: Yes 96 Hour Hold Ending Date: 03/14/21 96 Hour Hold Ending Time: 02:17 Attestations NPU Medical Necessity Statement*: Inpatient hospitalization is medically necessary and the clinically appropriate intervention at this time. We will monitor medications and make changes as indicated. Plan for discharge after medical clearance granted by hospitalist as concerns have arisen about the danger for her medically leaving at this time. Coding Level of Care Code Acute Slipcover Cutter for Jimmie Arias
--- NOTE | 2021-03-13 12:29 | NPU.GN ---
[facility] Group Topic:Two True one False General Mood of Group: Attempted to get her in group today, again she went on speaking about not attending asking If i knew how to pray and if I knew God.
[2021-03-13] MEDS: ibuprofen 800 mg tablet PO ×2 (12:58→22:18)
[2021-03-13 14:00] VITALS: BP 116/75; PULSE 100; RESP 22; TEMP 36.7; O2SAT 94
[2021-03-13] MEDS: hyDROXYzine 25 mg Capsule 50 MG PO (16:38)
--- NOTE | 2021-03-13 19:33 | PM.CONSULT ---
Providers/Reason For Consult Consulting Physician/Specialty*: hospitalist Reason for Consult*: Supratherapeutic INR Attending Physician: Bienvenido Heller MD Primary Care Provider: Yaw Sinclair MD History of Present Illness History of Present Illness Ivette Wheeler is a 61 year old female who has had multiple admissions in the hospita for neuropsychiatric issues has other multiple comorbid conditions such as A. fib, chronic anticoagulation with Coumadin, type 2 diabetes, established coronary disease with stents and CABG, recent stent was placed in February then she sustained a fall and Coumadin was on hold secondary to excessive petechiae and bruises of around her thigh. This was resumed when I was consulted on 03/01 considering that her hemoglobin has stayed stable, at that point venous Doppler was requested which ruled out DVT. Patient is finishing her 96-hour hold in neuropsychiatric unit and I was consulted to evaluate if she is stable to return home considering her high Coumadin and recent falls. Patient was seen she is stating that last time she fell out of her chair her home is undergoing remodeling, she is not planning to return to her home, she wants to live with a cousin who is medically trained. She is denying recent fall. She uses walker for ambulation. She is very anxious and wants to return home. She does endorse swelling of her extremities bilaterally, she has not been raising her legs, her dressing are soaked with yellow discharge. Her INR is 4.05, she has been taking Coumadin 10 mg on daily basis Hemoglobin stable 10.8 QTC 473 from EKG 03/11 She is very upset and keeps repeating that she is being kept against her wishes and was tricked twice to be admitted to this hospital. Review of Systems Const: Denies: fever(s) or chills Eyes: Denies: change in vision ENMT: Denies: throat pain Card: Reports: swelling of feet/ankles Resp: Reports: dyspnea GI: Denies: abdominal pain : Denies: flank pain Musc: Reports: extremity pain; Denies: neck pain Skin/Breast: Reports: rash, pruritus, erythema, skin tenderness, skin swelling and changing lesions Neuro: Denies: headache(s) Psych: Reports: anxiety, mood swings, irritability and paranoia Endo: Denies: polyuria Flavio/Lymph: Denies: easy bruising All/Imm: Denies: urticaria Meds/Allergies Home Medications and Allergies Home Medications Medication Instructions Recorded Confirmed Last Taken Type fenofibrate nanocrystallized 145 145 mg PO DAILY 12/30/19 03/07/21 02/08/21 History mg tablet sotalol 120 mg tablet 120 mg PO BID #180 tab 11/14/20 03/07/21 02/08/21 Rx omega-3 fatty acids 1,000 mg 1,000 mg PO BID cap 01/12/21 03/07/21 01/22/21 06:00 History capsule clobetasol 1 applic TOPICAL BID PRN 01/22/21 03/07/21 Unknown History levothyroxine [Euthyrox] 150 mcg PO DAILY 01/22/21 03/07/21 02/08/21 History potassium chloride 10 meq PO DAILY 01/22/21 03/07/21 02/08/21 History zinc gluconate 50 mg PO DAILY #14 tab 01/25/21 03/07/21 02/08/21 Rx diphenhydramine HCl [Benadryl 25 mg PO BEDTIME PRN 02/08/21 03/07/21 02/07/21 History Allergy] fluticasone propion-salmeterol 1 puff INHALATION BID 02/08/21 03/07/21 02/08/21 History [Advair Diskus] pantoprazole 40 mg PO BID #60 tab 02/11/21 03/07/21 Unknown Rx multivitamin 1 tab PO DAILY 02/17/21 03/07/21 Unknown History bacitracin 1 applic TOPICAL TID 30 Days #1 03/02/21 03/07/21 Unknown Rx tube bumetanide 1 mg PO DAILY 30 Days #30 tab 03/02/21 03/07/21 Unknown Rx clopidogrel 75 mg PO DAILY 30 Days #30 tab 03/02/21 03/07/21 Unknown Rx furosemide 40 mg PO DAILY 30 Days #60 tab 03/02/21 03/07/21 Unknown Rx metformin 750 mg PO BID 30 Days #60 tab 03/02/21 03/07/21 Unknown Rx acetaminophen [Acetaminophen Extra 1,000 mg PO Q6H PRN 03/06/21 03/07/21 Unknown History Strength] benzonatate 100 mg PO TID PRN 03/06/21 03/07/21 Unknown History diltiazem HCl 180 mg PO DAILY 03/06/21 03/07/21 Unknown History paroxetine HCl 10 mg PO DAILY 03/06/21 03/07/21 Unknown History warfarin 10 mg PO DAILY@1400 03/06/21 03/07/21 Unknown History trazodone 50 mg PO BEDTIME 03/07/21 03/07/21 Unknown History Allergies Allergy/AdvReac Type Severity Reaction Status Date / Time atorvastatin [From Lipitor] Allergy Unknown Verified 02/27/21 17:47 lisinopril Allergy Unknown Verified 02/27/21 17:47 Current Medications Current Medications Generic Name Dose Route Start Last Admin Trade Name Freq PRN Reason Stop Dose Admin Acetaminophen 650 mg 03/08/21 07:58 03/13/21 00:09 Acetaminophen 325 Mg Tablet PO 650 mg Q6H PRN Administration Mild/Mod Pain Or Temp >/= 101 Acetaminophen 650 mg 03/09/21 14:23 03/10/21 06:15 Acetaminophen 325 Mg Tablet PO 650 mg Q4H PRN Administration MILD PAIN Bacitracin 0 applic 03/08/21 09:00 03/13/21 14:41 Bacitracin Ointment 28 Gm TOPICAL Not Given TID [facility] Protocol Benzocaine 1 each 03/08/21 16:59 03/12/21 21:19 Cetylpyridinium Lozenge MUCOUS MEM 1 each Q2H PRN Administration SORE THROAT Clopidogrel Bisulfate 75 mg 03/08/21 09:15 03/13/21 09:27 Clopidogrel 75 Mg Tablet PO 75 mg DAILY AGNES Administration Diphenhydramine HCl 25 mg 03/08/21 14:37 03/10/21 13:24 Diphenhydramine 25 Mg Capsule PO 25 mg Q4H PRN Administration ITCHING Fenofibrate 145 mg 03/08/21 09:15 03/13/21 09:27 Fenofibrate 145 Mg Tablet PO 145 mg DAILY AGNES Administration Furosemide 40 mg 03/11/21 14:08 03/13/21 09:27 Furosemide 40 Mg Tablet PO 40 mg DAILY@0800 AGNES Administration Haloperidol 5 mg 03/09/21 14:23 03/13/21 00:15 Haloperidol 5 Mg Tablet PO 5 mg Q4H PRN Administration AGITATION Hydroxyzine Pamoate 50 mg 03/09/21 14:23 03/13/21 16:38 Hydroxyzine 25 Mg Capsule PO 50 mg Q6H PRN Administration ANXIETY Ibuprofen 800 mg 03/10/21 16:21 03/13/21 12:58 Ibuprofen 800 Mg Tablet PO 800 mg Q8H PRN Administration PAIN Levothyroxine Sodium 150 mcg 03/08/21 09:15 03/13/21 09:27 Levothyroxine 150 Mcg Tablet PO 150 mcg DAILY AGNES Administration Nystatin 1 applic 03/08/21 09:15 03/13/21 17:34 Nystatin Powder 15 Gm Btl TOPICAL Not Given BID AGNES Olanzapine 5 mg 03/09/21 14:23 03/12/21 21:19 Olanzapine 5 Mg Odt PO 5 mg Q4H PRN Administration Agitation/Psychosis Nawze-8-Hwms Ethyl Esters 1,000 mg 03/08/21 09:15 03/13/21 18:00 [place]-3 Fatty Acids 1,000 Mg Capsule PO Not Given BID AGNES Pantoprazole Sodium 40 mg 03/08/21 09:15 03/13/21 18:[address] 40 Mg Tablet PO Not Given BID AGNES Potassium Chloride 10 meq 03/08/21 09:15 03/13/21 09:27 Potassium Chloride Er 10 Meq Tablet PO 10 meq DAILY AGNES Administration Fluticasone/Salmeterol 1 puff 03/08/21 09:15 03/13/21 09:10 Fluticasone-Salmeterol 250-50 Diskus INHALATION Not Given BID.RESPIRATORY AGNES Sotalol HCl 80 mg 03/08/21 09:15 03/13/21 10:26 Sotalol 80 Mg Tablet PO 80 mg BID@0900,2100 AGNES Administration Warfarin Sodium 10 mg 03/08/21 14:00 03/10/21 14:01 Warfarin 10 Mg Tablet PO 10 mg DAILY@1400 AGNES Administration PFSH Acute PFSH: Medical History ASHD (arteriosclerotic heart disease) Atrial fibrillation CHF (congestive heart failure) COVID-19 January Dyslipidemia Essential hypertension Hx of deep venous thrombosis Mitral valve regurgitation Pulmonary hypertension Tricuspid valve regurgitation Type 2 diabetes mellitus Surgical History History of coronary artery bypass graft 2005 History of coronary artery stent placement History of total vaginal hysterectomy History of tubal ligation Status post colonoscopy Family History Other CAD (coronary artery disease) Diabetes Hypertension Social History Smoking and tobacco status: never smoked Alcohol intake: current Alcohol intake frequency: holidays/special occasions only Household members: significant other Marital status: Single Vitals/I&O/Wt Last Vital Signs Temp 98.0 F 03/13/21 14:00 Pulse 100 03/13/21 14:00 Resp 22 H 03/13/21 14:00 BP 116/75 03/13/21 14:00 Pulse Ox 94 03/13/21 14:00 Physical Exam Narrative: EXAM NARRATIVE: Patient was in day room when I examined her Bilateral lower extremity edema extending up to her thighs Dressing soaked with yellow discharge Paperthin skin due to swelling and edema No signs of ischemic ulcers cyanosis or gangrene Cellulitis of leg Variable S1-S2 with signs of heart failure Distended abdomen with obesity Neuro exam nonfocal patient appears very anxious, flight of ideas disorganized thinking does show paranoia A&P Assessment and plan (1) Cellulitis: Status: Acute Qualifiers: Site of cellulitis: extremity Site of cellulitis of extremity: lower extremity Laterality: unspecified laterality Qualified Code(s): L03.119 - Cellulitis of unspecified part of limb (2) Fall: Status: Acute Qualifiers: Encounter type: initial encounter Qualified Code(s): W19.XXXA - Unspecified fall, initial encounter (3) Acute psychosis: Status: Acute (4) Chronic atrial fibrillation with RVR: Status: Chronic (5) Atherosclerosis of coronary artery of [place] heart without angina pectoris: Status: Chronic (6) Hematoma of thigh: Status: Acute Qualifiers: Encounter type: initial encounter Laterality: left Qualified Code(s): S70.12XA - Contusion of left thigh, initial encounter (7) Supratherapeutic INR: Status: Acute Additional A&P Information Supratherapeutic INR supratherapeutic INR First and foremost hold Coumadin 10 mg at least next 3-4 days until INR is between 2-3, her hemoglobin is stable at 10.8 I am concerned regarding her disposition plan with this high INR and history of recurrent falls, bilateral lower extremity swelling and noncompliance I do recommend physical therapy evaluation to see if she will be considered safe to return home with a walker If she falls 1 more time with supratherapeutic INR, there is a risk of profuse bleeding as last time she had extensive hematoma 8.5 x 5 x 15 cm posterior thigh intramuscular She is considered unstable to return home today under these circumstances I would add PT evaluation, doxycycline for her cellulitis, she would definitely benefit from compression stockings, ABD and keeping her legs elevated above heart level I do believe bilateral lower extremity swelling and noncompliance with her medications Considering her noncompliance she might benefit from p.o. anticoagulating agent options such as Eliquis if her insurance would cover and patient agrees I would hold Lovenox therapeutic dose for now as she is supratherapeutic Consult Attestations Medical Necessity Statement: as per NPU Time Spent in Patient Care: 16 - 35 minutes Coding Level of Care Code Acute Heavy Equipment Technician for Chg Fwd Diagnoses Cellulitis L03.119 Site of cellulitis: extremity Site of cellulitis of extremity: lower extremity Laterality: unspecified laterality Fall W19.XXXA Encounter type: initial encounter Acute psychosis F23 Chronic atrial fibrillation with RVR I48.20 Atherosclerosis of coronary artery of [place] heart without angina pectoris I25.10 Hematoma of thigh S70.12XA Encounter type: initial encounter Laterality: left Supratherapeutic INR R79.1
[2021-03-13 21:36] VITALS: PULSE 97
--- NOTE | 2021-03-13 21:36 | ECG_ITS ---
[facility] Test Date: 2021-03-14 Pat Name: Ivette Wheeler Department: Room: 154 Gender: Female Manager Cargo: : [id number] Requested By: Kash Motley Order Number: [id number] Reading MD: KASH SARABIA Measurements Intervals [place] Rate: 97 P: ND: QRS: 45 QRSD: 91 T: 0 QT: 366 QTc: 467 Interpretive Statements ATRIAL FIBRILLATION NONSPECIFIC ST & T-WAVE ABNORMALITY ABNORMAL RHYTHM ECG Compared to ECG 03/11/2021 09:40:07 No significant changes Electronically Signed On 03-14-2021 21:10:53 CDT by KASH SARABIA [email or web address]
[2021-03-13 21:37] VITALS: BP 93/66; PULSE 113; RESP 19; TEMP 37.1; O2SAT 94
--- NOTE | 2021-03-13 22:20 | PC.NURSE ---
Cepacal cough drop given with Ibuprophen 800 mg given.
[2021-03-13] MEDS: LORazepam 2 mg Tablet PO (23:12)
--- NOTE | 2021-03-13 23:15 | PC.NURSE ---
Atavan 2mg PO given for anxiety and agitation.
--- NOTE | 2021-03-14 02:51 | PC.NURSE ---
ekg pt complains to chest pain, ekg abnormal, hr 97 qrs measured at 0.08, afib with rvr, physician notified, pt is resting, without any further s/s at this time.
[2021-03-14 06:00] VITALS: BP 93/66; PULSE 113; RESP 19; TEMP 37.1; O2SAT 94
[2021-03-14 07:23] LABS: INR 3.65 (0.8-1.2)
[2021-03-14] MEDS: doxycycline 100 mg Tablet PO ×2 (09:46→17:58)
[2021-03-14] MEDS: fenofibrate 145 mg Tablet PO (09:46)
[2021-03-14] MEDS: pantoprazole DR 40 mg Tablet PO ×2 (09:46→17:58)
[2021-03-14] MEDS: FUROsemide 40 mg Tablet PO (09:47)
[2021-03-14] MEDS: levothyroxine 150 mcg Tablet PO (09:47)
[2021-03-14] MEDS: potassium chloride ER 10 mEq Tablet PO (09:47)
[2021-03-14] MEDS: clopidogrel 75 mg Tablet PO (09:47)
[2021-03-14] MEDS: sotalol 80 mg Tablet PO ×2 (10:40→22:09)
[2021-03-14] MEDS: ibuprofen 800 mg tablet PO (10:47)
--- NOTE | 2021-03-14 12:18 | PM.NPN ---
Subjective NPU Subjective: Interval history: With much investment in time and again with great resistance Deepali was able to find out in the hospital and at least for the moment agreed to allow the treatment team to find a assisted option given her significant limitations in her current critical medical condition. She continues to lament about selling her home and being unfairly treated but ultimately yielded to the medical physicians position that she is at risk of a great bleed with her ambulatory difficulties which could be a convergence for disaster. Patient continues to explain that her trepidation about being here is related to having a sister who used to come here all the time with bipolar disorder and her thinking it would be so sad to be here and never wanted to be in the situation. Mental Status Exam MSE Comments: This is an obese versus morbidly obese white female in hospital scrubs with adequate grooming and appropriate eye contact. No abnormal movements except for mild psychomotor agitation. More cooperative with exam in mild to moderate distress. Speech was slightly increased rate and volume. Mood described as better, affect labile and tearful. Thought process organized. Thought content: Patient denied suicidal or homicidal ideation, there are no delusions reported, but concerns for delusional thinking existed still surrounding her son, she denied auditory or visual hallucinations. Attention and concentration appeared intact and memory seemed questionable but none were formally tested. She is alert and oriented x3. Insight and judgment appear limited, but improving impulse control appears limited. Vitals/I&O/Wt Last Vital Signs Temp 98.8 F 03/14/21 06:00 Pulse 113 H 03/14/21 06:00 Resp 19 H 03/14/21 06:00 BP 93/66 03/14/21 06:00 Pulse Ox 94 03/14/21 06:00 Data NPU : 03/09/21 06:00 03/09/21 06:00 A&P Additional A&P Information (1) Cellulitis: (2) Fall: (3) Acute psychosis: (4) Chronic atrial fibrillation with RVR: (5) Atherosclerosis of coronary artery of [place] heart without angina pectoris: (6) Elevated troponin I level: (7) Anemia: (8) NSTEMI (non-ST elevated myocardial infarction): (9) Acute blood loss anemia: (10) Diastolic CHF: (11) Atrial fibrillation with RVR: (12) Chronic anticoagulation: (13) Hematoma of thigh: (14) Heme + stool: Additional A&P Information Ivette Wheeler is a 61 year old female who presented to the [facility] ED on a 96-hour hold having just recently been discharged for similar symptoms about a week ago with psychosis, erratic behavior, put herself in dangerous situations with seemingly very impulsive behavior. 1. Continue current medication. 2. Continue every 15 minute checks for safety. 3. Encourage individual, group and milieu therapies. 4. Will follow hospitalist's recommendations on medical comorbidities, and identify any recommendations for management after discharge and if he would jeanette medical clearance for her discharge given the change in her coagulation status. 5. Continue to hold Coumadin and plan to restart after 1 more day as directed. Follow hospitalist recommendations in hopes of a safe discharge. Attestations NPU Medical Necessity Statement*: Inpatient hospitalization is medically necessary and the clinically appropriate intervention at this time. We will monitor medications and make changes as indicated. Plan for discharge after medical clearance granted by hospitalist as concerns have arisen about the danger for her medically leaving at this time. Coding Level of Care Code Acute Toll Gate Tender for Jimmie Arias
[2021-03-14 14:00] VITALS: BP 90/66; PULSE 92; RESP 18; TEMP 36.6; O2SAT 95
[2021-03-14] MEDS: cetylpyridinium Lozenge 1 EACH MUCOUS MEM ×2 (15:23→22:10)
[2021-03-14] MEDS: warfarin 5 mg Tablet PO (15:33)
[2021-03-14 21:36] VITALS: BP 125/83; PULSE 113; RESP 19; TEMP 37; O2SAT 93
[2021-03-14] MEDS: bacitracin ointment 28 gm TOPICAL (22:09)
[2021-03-14] MEDS: acetaminophen 325 mg Tablet 650 MG PO (22:10)
[2021-03-15] MEDS: LORazepam 2 mg Tablet PO ×2 (01:27→22:10)
--- NOTE | 2021-03-15 01:39 | PC.NURSE ---
prn 0140 administered 2mg Ativan for agitation. Pt is confused and just keeps repeating that she is the original Deepali Ivette Wheeler. over and over and over. Pt states that the staff isn't listening or understanding her.
[2021-03-15] MEDS: ibuprofen 800 mg tablet PO ×3 (02:37→20:28)
[2021-03-15] MEDS: cetylpyridinium Lozenge 1 EACH MUCOUS MEM ×2 (02:40→22:10)
--- NOTE | 2021-03-15 03:38 | PC.NURSE ---
Behavior Pt has verbally attacked every staff member this evening. She is intrusive to the point of distraction. pt has woke up other patients with her verbal argumentative behavior. Pt believes that she is being targeted and mistreated due to her age. pt refers to herself in 3rd person, often states, I am the real yoni idalmis santana. pt is convinced that staff does not believe that she is this person.
--- NOTE | 2021-03-15 03:40 | PC.NURSE ---
Delusional/AH pt believes that God woke her up, states, if you believe in God then this blanket in the floor will go back on the bed, see it happens. blanket is on the floor. pt requests phone numbers but does not know who she needs to talk to. She has difficulty remembering names of the family she has, she is upset that we do not know who they are. pt is stuck, retells the same story over and over. Tonrhett she has told the event 13 times.
[2021-03-15 06:00] VITALS: RESP 18
[2021-03-15] MEDS: fenofibrate 145 mg Tablet PO (08:41)
[2021-03-15] MEDS: pantoprazole DR 40 mg Tablet PO ×2 (08:41→17:54)
[2021-03-15] MEDS: doxycycline 100 mg Tablet PO ×2 (08:41→17:54)
[2021-03-15] MEDS: levothyroxine 150 mcg Tablet PO (08:41)
[2021-03-15] MEDS: FUROsemide 40 mg Tablet PO (08:41)
[2021-03-15] MEDS: potassium chloride ER 10 mEq Tablet PO (08:42)
[2021-03-15] MEDS: sotalol 80 mg Tablet PO ×2 (09:22→20:29)
[2021-03-15] MEDS: diphenhydrAMINE 25 mg Capsule PO (09:22)
[2021-03-15] MEDS: bacitracin ointment 28 gm TOPICAL ×2 (09:24→22:10)
--- NOTE | 2021-03-15 09:36 | PC.NURSE ---
Bacitracin applied to bilateral lower legs and kerlex wraps applied to help pants from sticking to her legs and absorb drainage and per patients request to aid in hitting her legs on things.
[2021-03-15 10:27] LABS: INR 3.19 (0.8-1.2)
--- NOTE | 2021-03-15 13:20 | NPU.GN ---
[facility] Group Topic:Communication General Mood of Group: Ivette was unable to attend group as she had [place] wrap around her legs. She was setting on the edge of the bed and was asking for nursing assistance. I informed the nurse about the patients needs. Deepali did attempt to attend group, I asked that she speak with the nurse as group was held outside and there was a possible safety hazard for her as she could be a fall risk and because she has a walker, It would only seem appropriate that there be another staff member to help supervise the patient with a walker that could be used as a weapon for her or others as well as a means to help escape the closure.
--- NOTE | 2021-03-15 13:45 | PC.NURSE ---
Per Betito in Pharmacy, he spoke to Dr. Motley and patient is to receive 1400 Warfarin dose. Patient was on 10mg and that was to high. Patient now needs to be on 5mg to determine therapeutic dose
[2021-03-15] MEDS: warfarin 10 mg Tablet 5 MG PO (13:51)
[2021-03-15 14:00] VITALS: BP 112/79; PULSE 114; RESP 20; TEMP 36.7; O2SAT 94
--- NOTE | 2021-03-15 17:38 | P.PN_ITS ---
Subjective NPU Subjective: Interval history: Deepali presents today continuing to have pressured speech and continues to be in the loop of telling her story and how she has been wronged. We continue to monitor her labs and identify the slow improvement in her coagulation profile. We will continue to hold for medical clearance 50 for discharge as we continue to attempt to find a place that would be safe for her to go. She signed into the hospital but continues to be very driven for discharge. She did agree however that she was incapable of taking care of herself and work with the treatment team to find some place that might take her given that she was accepted for [facility] with a [place] tag of 185 extra dollars a day. She finally agreed that she would do the Medicaid application w [facility] might give us greater latitude to find some place for her to live with her short-term or long-term. Mental Status Exam MSE Comments: This is an obese versus morbidly obese white female in hospital scrubs with adequate grooming and appropriate eye contact. No abnormal movements except for mild psychomotor agitation. More cooperative with exam in mild to moderate distress. Speech was increased rate and volume and nearly continuous. Mood described as better, affect labile and tearful. Thought process organized. Thought content: Patient denied suicidal or homicidal ideation, there are no delusions reported, but concerns for delusional thinking existed still surrounding her son, she denied auditory or visual hallucinations. Attention and concentration appeared intact and memory seemed questionable but none were formally tested. She is alert and oriented x3. Insight and judgment appear limited, but improving impulse control appears limited. Vitals/I&O/Wt Last Vital Signs Temp 97.0 F L 03/15/21 20:43 Pulse 123 H 03/15/21 20:43 Resp 19 H 03/15/21 20:43 BP 119/78 03/15/21 20:43 Pulse Ox 95 03/15/21 20:43 Data NPU : 03/09/21 06:00 03/09/21 06:00 A&P Additional A&P Information (1) Cellulitis: (2) Fall: (3) Acute psychosis: (4) Chronic atrial fibrillation with RVR: (5) Atherosclerosis of coronary artery of [place] heart without angina pectoris: (6) Elevated troponin I level: (7) Anemia: (8) NSTEMI (non-ST elevated myocardial infarction): (9) Acute blood loss anemia: (10) Diastolic CHF: (11) Atrial fibrillation with RVR: (12) Chronic anticoagulation: (13) Hematoma of thigh: (14) Heme + stool: Additional A&P Information Ivette Wheeler is a 61 year old female who presented to the [facility] ED on a 96-hour hold having just recently been discharged for similar symptoms about a week ago with psychosis, erratic behavior, put herself in dangerous situations with seemingly very impulsive behavior. 1. Continue current medication. Abilify restarted and Zoloft will be restarted in the morning. 2. Continue every 15 minute checks for safety. 3. Encourage individual, group and milieu therapies. 4. Will follow hospitalist's recommendations on medical comorbidities, and identify any recommendations for management after discharge and if he would jeanette medical clearance for her discharge given the change in her coagulation status. 5. Continue to hold Coumadin and plan to restart after 1 more day as directed. Follow hospitalist recommendations in hopes of a safe discharge. Attestations NPU Medical Necessity Statement*: Inpatient hospitalization is medically necessary and the clinically appropriate intervention at this time. We will monitor medications and make changes as indicated. Plan for discharge after medical clearance granted by hospitalist as concerns have arisen about the danger for her medically leaving at this time. A safe place for discharge will need to be identified prior to discharge. Coding Level of Care Code Acute Director Ehs for Jimmie Arias
[2021-03-15] MEDS: omega-3 fatty acids 1,000 mg Capsule 1000 MG PO (17:54)
[2021-03-15] MEDS: ARIPiprazole 10 mg Tablet 5 MG PO (20:29)
[2021-03-15 20:43] VITALS: BP 119/78; PULSE 123; RESP 19; TEMP 36.1; O2SAT 95
--- NOTE | 2021-03-16 05:01 | PC.NURSE ---
Upset patient Pt is upset that she is in this facility. She is stating, I was lied to, no one believes me that I am Pam Cao. Pt is saying, I have finished my hold, they asked me to sign those papers, I was a good girl, I did it.I want to go home Pt says I am so mad, I want out of here.My daughter did this to me. These doctors are not listening to me. Pt states, I am getting a ship purser to [facility] this hospital. They can not do this to me. Per physician on the unit, this patient is not medically stable to go home. Pt INR and coumadin use combined with her fall history and AMS are complicating patients release home. Pt is in need of prison care, however, patient does not have coverage for this type of care. Pt states, I don't want medicaid or medicare, I live off my husbands halfway and she is selling her home. Pt has not had any visitors, she repeatedly makes calls to local businesses and individuals that she has known for several years. There does not seem to be any supportive individuals in her life at this time to assist her at home. Staff does not believe that this patient is able to care for her own ADL's at home and it would be dangerous for her to return without assistance.
[2021-03-16 06:00] VITALS: RESP 17
[2021-03-16] MEDS: fenofibrate 145 mg Tablet PO (09:05)
[2021-03-16] MEDS: ARIPiprazole 10 mg Tablet 5 MG PO (09:05)
[2021-03-16] MEDS: ibuprofen 800 mg tablet PO (09:06)
[2021-03-16] MEDS: clopidogrel 75 mg Tablet PO (09:06)
[2021-03-16] MEDS: doxycycline 100 mg Tablet PO ×2 (09:06→17:20)
[2021-03-16] MEDS: sotalol 80 mg Tablet PO ×2 (09:06→20:46)
[2021-03-16] MEDS: potassium chloride ER 10 mEq Tablet PO (09:06)
[2021-03-16] MEDS: levothyroxine 150 mcg Tablet PO (09:06)
[2021-03-16] MEDS: omega-3 fatty acids 1,000 mg Capsule 1000 MG PO ×2 (09:06→17:20)
[2021-03-16] MEDS: pantoprazole DR 40 mg Tablet PO ×2 (09:06→17:20)
[2021-03-16] MEDS: FUROsemide 40 mg Tablet PO (09:06)
[2021-03-16] MEDS: bacitracin ointment 28 gm TOPICAL ×2 (09:09→22:45)
--- NOTE | 2021-03-16 13:21 | PM.NPN ---
Subjective NPU Subjective: Interval history: Deepali presents today continuing to be obsessive about the amount days she has been here, going home, feeling she is not being treated fairly etc. spent for 20 minutes allowing her to say what she needed to say and she continued saying at the end of that time and that she was not being listened to. I was again explained to her that the fundamental reason she is here is for medical hold due to safety concerns with her instability with ambulation as well as her nontherapeutic coagulation profile which continues today to be not therapeutic. I continue to follow the instructions of the hospitalist and attempt to get her in the 2-3 range with her INR. Mental Status Exam MSE Comments: This is an obese versus morbidly obese white female in hospital scrubs with adequate grooming and appropriate eye contact. No abnormal movements except for mild psychomotor agitation. More cooperative with exam in mild to moderate distress. Speech was increased rate and volume and nearly continuous. Mood described as better, affect labile and tearful. Thought process organized. Thought content: Patient denied suicidal or homicidal ideation, there are no delusions reported, but concerns for delusional thinking existed still surrounding her son, she denied auditory or visual hallucinations. Attention and concentration appeared intact and memory seemed questionable but none were formally tested. She is alert and oriented x3. Insight and judgment appear limited, but improving impulse control appears limited. Vitals/I&O/Wt Last Vital Signs Temp 97.0 F L 03/15/21 20:43 Pulse 123 H 03/15/21 20:43 Resp 17 03/16/21 06:00 BP 119/70 03/15/21 20:43 Pulse Ox 95 03/15/21 20:43 Data NPU : 03/09/21 06:00 03/09/21 06:00 A&P Additional A&P Information (1) Cellulitis: (2) Fall: (3) Acute psychosis: (4) Chronic atrial fibrillation with RVR: (5) Atherosclerosis of coronary artery of [place] heart without angina pectoris: (6) Elevated troponin I level: (7) Anemia: (8) NSTEMI (non-ST elevated myocardial infarction): (9) Acute blood loss anemia: (10) Diastolic CHF: (11) Atrial fibrillation with RVR: (12) Chronic anticoagulation: (13) Hematoma of thigh: (14) Heme + stool: Additional A&P Information Ivette Wheeler is a 61 year old female who presented to the [facility] ED on a 96-hour hold having just recently been discharged for similar symptoms about a week ago with psychosis, erratic behavior, put herself in dangerous situations with seemingly very impulsive behavior. 1. Continue current medication. 2. Continue every 15 minute checks for safety. 3. Encourage individual, group and milieu therapies. 4. Will follow hospitalist's recommendations on medical comorbidities, and identify any recommendations for management after discharge and if he would jeanette medical clearance for her discharge given the change in her coagulation status. 5. Patient is still not therapeutic with Coumadin. We will need to follow and continue medical hold given the risks. Attestations NPU Medical Necessity Statement*: Inpatient hospitalization is medically necessary and the clinically appropriate intervention at this time. We will monitor medications and make changes as indicated. Plan for discharge after medical clearance granted by hospitalist as concerns have arisen about the danger for her medically leaving at this time. A safe place and/or support for discharge will need to be identified prior to discharge. Coding Level of Care Code Acute Crap Game Box Person for Jimmie Arias
[2021-03-16 14:00] VITALS: PULSE 107; RESP 17; TEMP 36.3; O2SAT 93
[2021-03-16 16:09] LABS: INR 3.61 (0.8-1.2)
[2021-03-16] MEDS: warfarin 10 mg Tablet 5 MG PO (17:20)
[2021-03-16] MEDS: cetylpyridinium Lozenge 1 EACH MUCOUS MEM ×2 (19:30→20:45)
[2021-03-16 21:46] VITALS: BP 119/78; PULSE 107; RESP 17; TEMP 36.3; O2SAT 93
[2021-03-16 22:00] VITALS: PULSE 93
[2021-03-16 22:16] VITALS: BP 147/94; PULSE 121; RESP 22; TEMP 36.3; O2SAT 93
--- NOTE | 2021-03-16 22:16 | ECG_ITS ---
[facility] Test Date: 2021-03-16 Pat Name: Ivette Wheeler Department: Room: 154 Gender: Female [employer] Maker: : 1960 Requested By: Bienvenido Heller Order Number: [id number] [place] MD: Medardo Huddleston M.D. Measurements Intervals [place] Rate: 115 P: NM: QRS: 34 QRSD: 93 T: 37 QT: 325 QTc: 450 Interpretive Statements ATRIAL FIBRILLATION WITH RAPID VENTRICULAR RESPONSE ABNORMAL RHYTHM ECG Compared to ECG 03/14/2021 00:07:05 T-wave abnormality no longer present Electronically Signed On 03-17-2021 22:08:15 CDT by Medardo Huddleston M.D. [email or web address] [email or web address] [email or web address]/[id number]
--- NOTE | 2021-03-16 22:47 | PC.NURSE ---
Chest pain,EKG Pt is tearful, gasping, holding her arm and states she has SOB and CP. Physician notified, EKG ordered, performed, EKG is abnormal- Afib with RVR noted. Heart rate elevated, slightly diaphoretic, and patient is worked up and anxious at this time. No visible sign on EKG indicating WI. Pt is less anxious now, attempting to rest. Physician notified of result of EKG. Increasing observation throughout the remainder of shift.
[2021-03-17 06:00] VITALS: BP 121/71; PULSE 118; RESP 20; TEMP 36.8; O2SAT 95
[2021-03-17] MEDS: sennosides 8.6 mg Tablet PO (06:53)
[2021-03-17 07:18] LABS: INR 2.59 (0.8-1.2)
--- NOTE | 2021-03-17 09:21 | P.PN_ITS ---
Subjective NPU Subjective: Interval history: Patient presents today with her continued assessment ranting. We continue to work with her to understand her medical needs for safe discharge. Her Coumadin moved into therapeutic range today we discussed that we will monitor to ensure that she maintains that therapeutic range and explore possible discharge options which makes her happy. She notes that she has a person that could stay with her and possibly monitor her to create a appropriate discharge but she has not been able to get that person to contact us and she has not given us contact information for them. Once again spent 20 minutes with her and she once again said that nobody will listen and I explained to her that just because the decisions that are being made are not what she would like, does not mean that she is not being listened to. We discussed the fact that she is being heard and I reflected many of the issues she had concerns with. Identifying that just because we do not do what she wants does not mean we will hear what she saying. Mental Status Exam MSE Comments: This is an obese versus morbidly obese white female in hospital scrubs with adequate grooming and appropriate eye contact. No abnormal movements except for mild psychomotor agitation. More cooperative with exam in mild to moderate distress. Speech was increased rate and volume and nearly continuous. Mood described as I am okay but nobody will listen to me, affect labile and tearful. Thought process organized. Thought content: Patient denied suicidal or homicidal ideation, there are no delusions reported, but concerns for delusional thinking existed still surrounding her son, she denied auditory or visual hallucinations. Attention and concentration appeared intact and memory seemed questionable but none were formally tested. She is alert and oriented x3. Insight and judgment appear limited, but improving impulse control appears limited. Vitals/I&O/Wt Last Vital Signs Temp 98.3 F 03/17/21 06:00 Pulse 118 H 03/17/21 06:00 Resp 20 H 03/17/21 06:00 BP 121/71 03/17/21 06:00 Pulse Ox 95 03/17/21 06:00 Data NPU : 03/09/21 06:00 03/09/21 06:00 A&P Additional A&P Information (1) Cellulitis: (2) Fall: (3) Acute psychosis: (4) Chronic atrial fibrillation with RVR: (5) Atherosclerosis of coronary artery of [place] heart without angina pectoris: (6) Elevated troponin I level: (7) Anemia: (8) NSTEMI (non-ST elevated myocardial infarction): (9) Acute blood loss anemia: (10) Diastolic CHF: (11) Atrial fibrillation with RVR: (12) Chronic anticoagulation: (13) Hematoma of thigh: (14) Heme + stool: Additional A&P Information Ivette Wheeler is a 61 year old female who presented to the [facility] ED on a 96-hour hold having just recently been discharged for similar symptoms about a week ago with psychosis, erratic behavior, put herself in dangerous situations with seemingly very impulsive behavior. 1. Continue current medication. 2. Continue every 15 minute checks for safety. 3. Encourage individual, group and milieu therapies. 4. Will follow hospitalist's recommendations on medical comorbidities, and identify any recommendations for management after discharge and if he would jeanette medical clearance for her discharge given the change in her coagulation status. 5. Patient is in the therapeutic range with Coumadin. We will monitor to ensure she maintains the therapeutic range and begin plan for discharge. Attestations NPU Medical Necessity Statement*: Inpatient hospitalization is medically necessary and the clinically appropriate intervention at this time. We will monitor medications and make changes as indicated. Plan for discharge after medical clearance granted by hospitalist as concerns have arisen about the danger for her medically leaving at this time. A safe place and/or support for discharge will need to be identified prior to discharge. Likely length of stay 2 to 3 days. Coding Level of Care Code Acute Chartered Wealth Manager for Jimmie Arias
[2021-03-17] MEDS: sertraline 50 mg Tablet PO (10:30)
[2021-03-17] MEDS: FUROsemide 40 mg Tablet PO (10:30)
[2021-03-17] MEDS: omega-3 fatty acids 1,000 mg Capsule 1000 MG PO (10:30)
[2021-03-17] MEDS: pantoprazole DR 40 mg Tablet PO ×2 (10:30→21:42)
[2021-03-17] MEDS: levothyroxine 150 mcg Tablet PO (10:30)
[2021-03-17] MEDS: potassium chloride ER 10 mEq Tablet PO (10:31)
[2021-03-17] MEDS: fenofibrate 145 mg Tablet PO (10:31)
[2021-03-17] MEDS: doxycycline 100 mg Tablet PO ×2 (10:31→21:41)
[2021-03-17] MEDS: ARIPiprazole 10 mg Tablet 5 MG PO (10:31)
[2021-03-17] MEDS: warfarin 5 mg Tablet PO (15:45)
[2021-03-17 21:42] VITALS: BP 116/69; PULSE 110; RESP 14; TEMP 36.6; O2SAT 95
[2021-03-17] MEDS: ibuprofen 800 mg tablet PO (21:42)
[2021-03-17] MEDS: sotalol 80 mg Tablet PO (21:42)
--- NOTE | 2021-03-17 22:48 | PC.NURSE ---
sai lax wasted, package opened, Patient refused.
[2021-03-17] MEDS: cetylpyridinium Lozenge 1 EACH MUCOUS MEM (23:03)
[2021-03-17] MEDS: LORazepam 2 mg Tablet PO (23:57)
--- NOTE | 2021-03-18 | PC.NURSE ---
Atavan 2mg PO given for agitation / anxiety.
[2021-03-18 06:00] VITALS: RESP 15
[2021-03-18] MEDS: fenofibrate 145 mg Tablet PO (08:45)
[2021-03-18] MEDS: levothyroxine 150 mcg Tablet PO (08:45)
[2021-03-18] MEDS: FUROsemide 40 mg Tablet PO (08:45)
[2021-03-18] MEDS: pantoprazole DR 40 mg Tablet PO ×2 (08:45→21:54)
[2021-03-18] MEDS: sertraline 50 mg Tablet PO (08:45)
[2021-03-18] MEDS: sotalol 80 mg Tablet PO ×2 (08:45→21:54)
[2021-03-18] MEDS: potassium chloride ER 10 mEq Tablet PO (08:45)
[2021-03-18] MEDS: ibuprofen 800 mg tablet PO (08:46)
[2021-03-18] MEDS: ARIPiprazole 10 mg Tablet 5 MG PO (08:46)
[2021-03-18] MEDS: doxycycline 100 mg Tablet PO ×2 (08:46→21:54)
[2021-03-18] MEDS: sennosides 8.6 mg Tablet PO (08:46)
[2021-03-18] MEDS: clopidogrel 75 mg Tablet PO (08:46)
--- NOTE | 2021-03-18 10:58 | PM.NPN ---
Subjective NPU Subjective: Interval history: Patient presents today continue to focus on wanting to be discharged. Continue to have the same conversation about the nature of having her coagulation control in place before she is discharged. She continues to report that she has someone that we will be able to do x-ray she is safe however the individual never calls and is never able to be produced. She reports he is eating and sleeping better. Mental Status Exam MSE Comments: This is an obese versus morbidly obese white female in hospital scrubs with adequate grooming and appropriate eye contact. No abnormal movements except for mild psychomotor agitation. More cooperative with exam in mild to moderate distress. Speech was increased rate and more normal volume and less pressured. Mood described as I am good, affect less labile and tearful. Thought process organized. Thought content: Patient denied suicidal or homicidal ideation, there are no delusions reported, but concerns for delusional thinking existed still surrounding her son, she denied auditory or visual hallucinations. Attention and concentration appeared intact and memory seemed questionable but none were formally tested. She is alert and oriented x3. Insight and judgment appear limited, but improving impulse control appears limited. Vitals/I&O/Wt Last Vital Signs Temp 97.8 F 03/17/21 21:42 Pulse 110 H 03/17/21 21:42 Resp 14 03/17/21 21:42 BP 116/69 03/17/21 21:42 Pulse Ox 95 03/17/21 21:42 Weight last 48 hrs Weight 103.192 kg Weight 104.496 kg Data NPU : 03/09/21 06:00 03/09/21 06:00 A&P Additional A&P Information (1) Cellulitis: (2) Fall: (3) Acute psychosis: (4) Chronic atrial fibrillation with RVR: (5) Atherosclerosis of coronary artery of [place] heart without angina pectoris: (6) Elevated troponin I level: (7) Anemia: (8) NSTEMI (non-ST elevated myocardial infarction): (9) Acute blood loss anemia: (10) Diastolic CHF: (11) Atrial fibrillation with RVR: (12) Chronic anticoagulation: (13) Hematoma of thigh: (14) Heme + stool: Additional A&P Information Ivette Wheeler is a 61 year old female who presented to the [facility] ED on a 96-hour hold having just recently been discharged for similar symptoms about a week ago with psychosis, erratic behavior, put herself in dangerous situations with seemingly very impulsive behavior. 1. Continue current medication. 2. Continue every 15 minute checks for safety. 3. Encourage individual, group and milieu therapies. 4. Will follow hospitalist's recommendations on medical comorbidities, and identify any recommendations for management after discharge and if he would jeanette medical clearance for her discharge given the change in her coagulation status. 5. Spoke to Hospitalist Romero and he recommended d/c Coumadin and initiation of eliquis 5mg po bid. Attestations NPU Medical Necessity Statement*: Inpatient hospitalization is medically necessary and the clinically appropriate intervention at this time. We will monitor medications and make changes as indicated. Plan for discharge after medical clearance granted by hospitalist as concerns have arisen about the danger for her medically leaving at this time. A safe place and/or support for discharge will need to be identified prior to discharge. Likely length of stay 1-2 days. Will get medical clearance prior to discharge. Coding Level of Care Code Acute Supervisor [employer] for Jimmie Arias
[2021-03-18 13:51] LABS: INR 2.54 (0.8-1.2)
[2021-03-18 14:00] VITALS: BP 125/80; PULSE 106; RESP 20; TEMP 36.4; O2SAT 94
[2021-03-18] MEDS: warfarin 5 mg Tablet PO (14:57)
[2021-03-18 21:01] VITALS: BP 122/90; PULSE 108; RESP 18; TEMP 37.2; O2SAT 90
[2021-03-18] MEDS: LORazepam 2 mg Tablet PO (21:55)
[2021-03-19] MEDS: cetylpyridinium Lozenge 1 EACH MUCOUS MEM (03:54)
[2021-03-19] MEDS: ibuprofen 800 mg tablet PO (03:54)
[2021-03-19 06:00] VITALS: BP 116/78; PULSE 106; RESP 17; TEMP 37.2; O2SAT 96
[2021-03-19] MEDS: fenofibrate 145 mg Tablet PO (08:31)
[2021-03-19] MEDS: potassium chloride ER 10 mEq Tablet PO (08:31)
[2021-03-19] MEDS: clopidogrel 75 mg Tablet PO (08:32)
[2021-03-19] MEDS: omega-3 fatty acids 1,000 mg Capsule 1000 MG PO (08:32)
[2021-03-19] MEDS: FUROsemide 40 mg Tablet PO (08:32)
[2021-03-19] MEDS: sotalol 80 mg Tablet PO ×2 (08:32→22:00)
[2021-03-19] MEDS: doxycycline 100 mg Tablet PO ×2 (08:32→22:00)
[2021-03-19] MEDS: levothyroxine 150 mcg Tablet PO (08:32)
[2021-03-19] MEDS: apixaban 5 mg Tablet PO ×2 (08:33→22:00)
--- NOTE | 2021-03-19 08:35 | PC.NURSE ---
refused scheduled Abilify, zoloft, senna, protonix
[2021-03-19] MEDS: LORazepam 2 mg Tablet PO (10:08)
[2021-03-19 14:00] VITALS: BP 117/79; PULSE 108; RESP 20; TEMP 36.6; O2SAT 96
--- NOTE | 2021-03-19 16:07 | PM.NPN ---
Subjective NPU Subjective: Interval history: We had a long discussion in our team meeting about the patient's needs and how best to meet them. There is a question about whether she continues on the medical hold. We will explore additional supports such as Medicaid application and guardianship. The patient continues to have poor understanding of why she is in the hospital. She says, my daughter put me here, but does not really understand nor agree with the reasons. She says she has been feeling sad, especially since her son committed suicide in August. She becomes quite tearful when talking about this. She says she is eating poorly. She describes that her medication make her sleepy, but otherwise has no side effects. She denies auditory and visual hallucinations. She denies suicidal and homicidal ideation. The patient says he has had some headaches but does not feel dizzy. She says she gets short of breath, has chest pain, and palpitations when she feels anxious. She denies nausea, vomiting, diarrhea, and constipation. Mental Status Exam MSE Comments: This is an obese versus morbidly obese white female in hospital scrubs with adequate grooming and appropriate eye contact. No abnormal movements except for mild psychomotor agitation. She is somewhat cooperative, but is not open to considering the examiner's perspectives. Speech was pressured and fairly loud. Mood described as sad, affect was labile and tearful. Thought process perseverative. Thought content: Patient denied suicidal or homicidal ideation. She denied auditory or visual hallucinations. Attention and concentration appeared intact and memory are impaired, but none were formally tested. She is alert and oriented x3. Insight and judgment appear limited. She has anosognosia, unaware that she has a mental health condition. Impulse control is poor. She can't wait when she has a need. Vitals/I&O/Wt Last Vital Signs Temp 97.9 F 03/19/21 14:00 Pulse 108 H 03/19/21 14:00 Resp 20 H 03/19/21 14:00 BP 117/79 03/19/21 14:00 Pulse Ox 96 03/19/21 14:00 Weight last 48 hrs Weight 103.192 kg Weight 104.496 kg Data NPU : 03/09/21 06:00 03/09/21 06:00 A&P Additional A&P Information (1) Cellulitis: (2) Fall: (3) Acute psychosis: (4) Chronic atrial fibrillation with RVR: (5) Atherosclerosis of coronary artery of [place] heart without angina pectoris: (6) Elevated troponin I level: (7) Anemia: (8) NSTEMI (non-ST elevated myocardial infarction): (9) Acute blood loss anemia: (10) Diastolic CHF: (11) Atrial fibrillation with RVR: (12) Chronic anticoagulation: (13) Hematoma of thigh: (14) Heme + stool: Ivette Wheeler is a 61 year old female who presented to the [facility] ED on a 96-hour hold having just recently been discharged for similar symptoms about a week ago with psychosis, erratic behavior, put herself in dangerous situations with seemingly very impulsive behavior. 1. Continue current medication. 2. Continue every 15 minute checks for safety. 3. Encourage individual, group and milieu therapies. 4. Will follow hospitalist's recommendations on medical comorbidities, and identify any recommendations for management after discharge and if he would jeanette medical clearance for her discharge given the change in her coagulation status. 5. Dr. Motley recommended d/c Coumadin and initiation of Eliquis 5mg po bid. 6. Need to develop an adequate plan for discharge to the community. Attestations NPU Medical Necessity Statement*: Inpatient hospitalization is medically necessary and the clinically appropriate intervention at this time. We will monitor medications and make changes as indicated. Plan for discharge after medical clearance granted by hospitalist as concerns have arisen about the danger for her medically leaving at this time. A safe place and/or support for discharge will need to be identified prior to discharge. Likely length of stay 1-2 days. Will get medical clearance prior to discharge. Coding Level of Care Code Acute Facing Baster for Jimmie Arias
--- NOTE | 2021-03-19 19:12 | P.PN_ITS ---
Subjective Subjective: Interval history: It was very difficult to keep her INR therapeutic because of her drug to drug interaction, recommendation was made to switch her to Eliquis, discontinue Coumadin ask case hardener to check with the pharmacy if patient will be able to afford monthly co-payments Eliquis might be better to avoid checking INR on regular intervals because of her psychiatric issues and noncompliance Physical therapy evaluation was done(recommended home exercise program) considering her multiple admissions, psychiatric history, recent fall agree with institutional care. If she is not able to go to any nursing facility kindly arrange home health services at the time of discharge. She can be discharged once cleared by psychiatry. Her last hemoglobin is 10.8 it has stayed stable, there is no evidence of worsening of hematoma I did discuss this plan with Dr. Landa today Medicine will sign off for now please call me if you have any questions my phone number is [phone] Vitals/I&O/Wt Last Vital Signs Temp 97.9 F 03/19/21 14:00 Pulse 108 H 03/19/21 14:00 Resp 20 H 03/19/21 14:00 BP 117/79 03/19/21 14:00 Pulse Ox 96 03/19/21 14:00 Weight last 48 hrs Weight 103.192 kg Weight 104.496 kg Data : 03/09/21 06:00 03/09/21 06:00 Attestations Medical Necessity Statement*: As per neuropsychiatric unit Coding Level of Care Code Acute Ornamental Iron Erector for Jimmie Arias
[2021-03-19] MEDS: acetaminophen 325 mg Tablet 650 MG PO (21:59)
[2021-03-19 22:00] VITALS: BP 115/80; PULSE 96; RESP 18; TEMP 37; O2SAT 95
[2021-03-19] MEDS: bacitracin ointment 28 gm TOPICAL (22:01)
[2021-03-20] MEDS: ibuprofen 800 mg tablet PO (00:34)
[2021-03-20 01:06] VITALS: BP 123/72; PULSE 120; RESP 22; TEMP 37.2; O2SAT 97
[2021-03-20 01:14] VITALS: PULSE 111
[2021-03-20 02:00] LABS: Troponin(5th) Baseline 23 ng/L (0-10)
--- NOTE | 2021-03-20 03:14 | ECG_ITS ---
[facility] Test Date: 2021-03-20 Pat Name: Ivette Wheeler Department: Room: 154 Gender: Female Collateral Specialist: : 1960 Requested By: Sandra Chen Order Number: [id number] Reading MD: AGNES SARABIA Measurements Intervals [place] Rate: 116 P: [place]: QRS: 40 QRSD: 88 T: -10 QT: 336 QTc: 467 Interpretive Statements ATRIAL FIBRILLATION WITH RAPID VENTRICULAR RESPONSE ABNORMAL RHYTHM ECG Compared to ECG 03/16/2021 22:23:55 No significant changes Electronically Signed On 03-20-2021 21:12:54 CDT by AGNES SARABIA [id number]
[2021-03-20 04:13] LABS: Troponin 5 2HR 22.59 ng/L (0-10)
[2021-03-20 04:25] LABS: Troponin 5 2HR Delta -0.41 ABS# (0-10)
--- NOTE | 2021-03-20 04:34 | PC.NURSE ---
Patient up at nurses station cycling between crying and repetitive statements of her maiden name being santana and staff not listening to her. Patient with anxious affect. This nurse and other staff actively listened to patient and encouraged patient to rest. Staff attempted reality orientation of patients condition and need to elevate lower extremities due to 4 + weeping edema. Patient is intrusive with staff and is resistive to care. Physician notified at 0410 of patient activity and requested that Geodon be given.
[2021-03-20] MEDS: ziprasidone 20 mg/mL SDV IM (05:00)
[2021-03-20] MEDS: water for injection-sterile 10 ML 1.5 ML (05:01)
[2021-03-20 05:03] VITALS: BP 146/97; PULSE 118
[2021-03-20 06:00] VITALS: BP 127/80; PULSE 80; RESP 15; TEMP 36.5; O2SAT 97
--- NOTE | 2021-03-20 07:14 | ECG_ITS ---
[facility] Test Date: 2021-03-20 Pat Name: Ivette Wheeler Department: Room: 154 Gender: Female United [place] Marshal: : 1960 Requested By: Sandra Chen Order Number: [id number] Reading MD: AGNES SARABIA Measurements Intervals [place] Rate: 111 P: [place]: QRS: 44 QRSD: 89 T: 32 QT: 361 QTc: 491 Interpretive Statements ATRIAL FIBRILLATION WITH RAPID VENTRICULAR RESPONSE LOW QRS VOLTAGE IN PRECORDIAL LEADS [QRS DEFLECTION < 1.0 mV IN CHEST LEADS] ABNORMAL RHYTHM ECG INTERPRETATION BASED ON A DEFAULT AGE OF 40 YEARS Compared to ECG 03/16/2021 22:23:55 Low QRS voltage now present Electronically Signed On 03-20-2021 21:13:02 CDT by AGNES SARABIA [id number]
[2021-03-20 08:24] LABS: Troponin 5 6HR 24.05 ng/L (0-10); Troponin 5 6HR Delta 1.05 ng/L (0-12)
[2021-03-20] MEDS: clopidogrel 75 mg Tablet PO (10:35)
[2021-03-20] MEDS: sotalol 80 mg Tablet PO (10:36)
[2021-03-20] MEDS: fenofibrate 145 mg Tablet PO (10:36)
[2021-03-20] MEDS: levothyroxine 150 mcg Tablet PO (10:36)
[2021-03-20] MEDS: apixaban 5 mg Tablet PO (10:36)
[2021-03-20] MEDS: doxycycline 100 mg Tablet PO (10:36)
--- NOTE | 2021-03-20 10:37 | PC.NURSE ---
refused scheduled Fish oil, protonix, lasix, klor hunter, rod dickey, sai
--- NOTE | 2021-03-20 12:29 | NPU.GN ---
[facility] Group Topic: Thought Processing General Mood of Group: Patient did eventually come to group today, she then needed to go see the nurse to get medication.
--- NOTE | 2021-03-20 15:13 | P.DS_ITS ---
Diagnoses at Discharge Discharge Diagnosis (1) Cellulitis: Status: Acute Qualifiers: Laterality: unspecified laterality Site of cellulitis: extremity Site of cellulitis of extremity: lower extremity Qualified Code(s): L03.119 - Cellulitis of unspecified part of limb (2) Acute psychosis: Status: Chronic (3) Chronic atrial fibrillation with RVR: Status: Resolved (4) Atherosclerosis of coronary artery of [place] heart without angina pectoris: Status: Chronic (5) Hematoma of thigh: Status: Resolved Qualifiers: Encounter type: initial encounter Laterality: left Qualified Code(s): S70.12XA - Contusion of left thigh, initial encounter (6) Supratherapeutic INR: Status: Resolved Reason for Visit Reason for Visit: SUICIDAL IDEATIONS Brief History: Ivette Wheeler is a 61 year old female who presented to the emerge department with the following report: Chief Complaint: Psychiatric Symptoms Stated Complaint: 96 hour hold Time Seen by Provider: 03/07/21 18:10 Source: patient and EMS Mode of arrival: EMS Limitations: no limitations History of Present Illness: HPI Narrative: 61-year-old female who is here with EMS under 96-hour hold. Patient has been acting erratic per family. Here she does have flight of ideas and appears extremely manic. She denies any SI or HI but has very pressured speech. Per family she is supposed to go to assisted living and did not and that they states she really is not been taking care of her self. They were concerned that she is a threat to herself. She denies any suicidal or homicidal complaints. She has no medical complaints. She was admitted to the [facility] for definitive treatment of the medical concerns. After she was medically stable request for transfer to the neuropsychiatric unit for definitive treatment of her issues was requested. Patient presents today reporting that she does not know why she is here. She denies that the issues that were raised are valid and endorses a desire to be discharged back home. The affidavits report erratic behavior. Her making choices about her medical care that are unsafe. Attempting to walk across the road when she can barely walk down the hallway. Endorsing that she was being abused by everyone around her. As dependent as she is on assistance she reportedly ran her home nurse off. She denies any of these behaviors and became very frustrated not wanting to talk further about the situation. She denies any changes from when she left last week but reports that even then she should not have been here. Hospital Course Hospital Course The patient was admitted to the neuropsychiatric unit for definitive treatment of these issues. On the unit she slowly acclimated to the individual, group and milieu therapies. There were some mild psychotic symptoms present initially which responded somewhat to Abilify 5 mg daily. Abilify 10 mg made her too sleepy. She was moderately receptive to treatment team recommendations and showed modest improvement and was able to contract for safety prior to d ischarge. During the hospitalization, her medical conditions were managed by the hospitalists. Cellulitis was treated, and she was provided anticoagulation due to afib. Discharge Summary: At the time of discharge, psychosis and lethality were denied. Mood and anxiety were improved. Patient was in moderate denial of medical issues. Patient was evaluated and deemed to be absent credible lethality, though there was concern she would not be able to care for herself. She insisted on leaving and we allowed her to sign herself out AGAINST MEDICAL ADVICE. We erred on the side of patient autonomy in making her decision to allow her to go where she wanted to go. Our plan was to follow up with her daily to make sure she was safely making the transition to the community. Involuntary Hold Information 96 Hour Hold: 96 Hour Involuntary Admission: Yes 96 Hour Hold Ending Date: 03/27/21 96 Hour Hold Ending Time: 07:23 Mental Status Exam MSE Comments: This is a white female in hospital scrubs with adequate grooming and appropriate eye contact. No abnormal movements except for mild psychomotor agitation. She is somewhat cooperative, but is not open to considering the examiner's perspectives. Speech was pressured and fairly loud. Mood described as sad, affect was labile and tearful. Thought process perseverative. Thought content: Patient denied suicidal or homicidal ideation. She denied auditory or visual hallucinations. Attention and concentration appeared intact and memory are impaired, but none were formally tested. She is alert and oriented x3. Insight and judgment appear limited. She has anosognosia, unaware that she has a mental health condition. Impulse control is poor. She can't wait when she has a need. Discharge Data Data Completed and Pending: Completed Studies During Hospitalization Category Date Time Status CT head wo con* 7 0450 Urgent Cat Scan 03/07/21 19:12 Completed Vitals: Last Vital Signs Temp 97.7 F 03/20/21 15:38 Pulse 80 03/20/21 15:38 Resp 15 03/20/21 15:38 BP 127/80 03/20/21 15:38 Pulse Ox 97 03/20/21 15:38 Discharge Plan Discharge Patient Disposition: Home Condition: Stable Prescriptions: New furosemide 40 mg Tablet 40 mg PO DAILY@0800 Qty: 30 RF: 0 nystatin [Nystop] 100,000 unit/gram Powder 1 applic topical 899,2099 Qty: 30 RF: 0 sennosides [Senna Lax] 8.6 mg Tablet 8.6 mg PO 00,2100 Qty: 60 RF: 0 sertraline 50 mg Tablet 50 mg PO DAILY Qty: 30 RF: 0 Continued pantoprazole 40 mg Tablet,Delayed Release (Dr/Ec) 40 mg PO BID Qty: 60 RF: 0 clopidogrel 75 mg Tablet 75 mg PO DAILY 30 Days Qty: 30 RF: 1 omega-3 fatty acids [Fish Oil Concentrate] 1,000 mg capsule 1,000 mg PO BID Qty: 60 RF: 0 potassium chloride 10 mEq tablet extended release 10 meq PO DAILY Qty: 30 RF: 0 levothyroxine [Euthyrox] 150 mcg tablet 150 mcg PO DAILY Qty: 30 RF: 0 fenofibrate nanocrystallized 145 mg tablet 145 mg PO DAILY Qty: 30 RF: 0 Discontinued sotalol 120 mg tablet 120 mg PO BID Qty: 180 RF: 3 clobetasol 0.05 % ointment 1 applic TOPICAL BID PRN (Reason: unknown) RF: 0 zinc gluconate 50 mg Tablet 50 mg PO DAILY Qty: 14 RF: 0 diphenhydramine HCl [Benadryl Allergy] 25 mg Tablet 25 mg PO BEDTIME PRN (Reason: Sleep) RF: 0 fluticasone propion-salmeterol [Advair Diskus] 250-50 mcg/dose blister with device 1 puff inhalation BID RF: 0 bumetanide 1 mg Tablet 1 mg PO DAILY 30 Days Qty: 30 RF: 1 furosemide 20 mg tablet 40 mg PO DAILY 30 Days Qty: 60 RF: 1 metformin 750 mg tablet extended release 24 hr 750 mg PO BID 30 Days Qty: 60 RF: 1 trazodone 50 mg tablet 50 mg PO BEDTIME RF: 0 multivitamin Tablet 1 tab PO DAILY RF: 0 paroxetine HCl 10 mg Tablet 10 mg PO DAILY RF: 0 diltiazem HCl 180 mg capsule,extended release 24hr 180 mg PO DAILY RF: 0 acetaminophen [Acetaminophen Extra Strength] 500 mg Tablet 1,000 mg PO Q6H PRN (Reason: Pain) RF: 0 benzonatate 100 mg Capsule 100 mg PO TID PRN (Reason: UNKNOWN) RF: 0 warfarin 10 mg tablet 10 mg PO DAILY@1400 RF: 0 No Action doxycycline hyclate 100 mg Capsule 100 mg PO DAILY RF: 0 paroxetine HCl 10 mg tablet 10 mg PO DAILY RF: 0 diltiazem HCl 180 mg capsule,extended release 24hr 180 mg PO DAILY RF: 0 metformin 750 mg tablet extended release 24 hr 750 mg PO BID RF: 0 warfarin 4 mg PO TID RF: 0 Advair Diskus 250-50 mcg/dose blister with device 1 puff inhalation BID RF: 0 sotalol 80 mg tablet 80 mg PO BID@0900,2100 RF: 0 bacitracin 500 unit/gram ointment 1 applic topical TID RF: 0 Discharge Orders: Discharge Order (Routine); Ordered 03/20/21 Ordered By: Justin Landa Referrals: Yaw Sinclair MD [Primary Care Provider] - 03/23/21 9:30 am Discharge Diet: Advance as tolerated Discharge Activity: Increase activity as tolerated Patient Instructions: Opioid Safety Discharge Attestations NPU Time Spent in Discharge Care*: greater than 30 min Specific Discharge Activities: Specific discharge activities: educating patient, discussing with disability case manager/social workers/dc planners, documenting/other paperwork and evaluating patient/reviewing data Status at Discharge: Cognitive status at discharge: mildly impaired cognition , Behavioral status at discharge: cooperative, can be uncooperative and dependent in ADL's , Functional status at discharge: uses cane/walker Overall status at discharge: patient is not back to baseline Coding Level of Care Code Acute Chg FW DC note Diagnoses Cellulitis L03.119 Laterality: unspecified laterality Site of cellulitis: extremity Site of cellulitis of extremity: lower extremity Acute psychosis F23 Chronic atrial fibrillation with RVR I48.20 Atherosclerosis of coronary artery of [place] heart without angina pectoris I25.10 Hematoma of thigh S70.12XA Encounter type: initial encounter Laterality: left Supratherapeutic INR R79.1
[2021-03-20 15:38] VITALS: BP 127/80; PULSE 80; RESP 15; TEMP 36.5; O2SAT 97
== END 2021-03-20 15:55 | disposition home or self-care (01) | DRG 885 ==
LOC: ER 03-08 02:23 → ER IP 03-08 09:33 → CSU 03-09 06:03 → NP 03-09 14:19
PROVIDERS: Hospitalist; Admitting Provider Hospitalist; Emergency Provider Emergency Medicine; PCP Family Medicine; Visit Provider Psychiatry & Neurology Child & Adolescent Psychiatry
DX: F23 Brief psychotic disorder (principal); I50.33 Acute on chronic diastolic (congestive) heart failure; I48.20 Chronic atrial fibrillation, unspecified; R45.851 Suicidal ideations; L03.119 Cellulitis of unspecified part of limb; F31.9 Bipolar disorder, unspecified; I25.10 Atherosclerotic heart disease of native coronary artery without angina pectoris; Z95.1 Presence of aortocoronary bypass graft; Z95.5 Presence of coronary angioplasty implant and graft; I11.0 Hypertensive heart disease with heart failure; Z86.16 Personal history of COVID-19; E78.5 Hyperlipidemia, unspecified; Z86.718 Personal history of other venous thrombosis and embolism; E11.9 Type 2 diabetes mellitus without complications; Z81.8 Family history of other mental and behavioral disorders; I25.2 Old myocardial infarction; I08.1 Rheumatic disorders of both mitral and tricuspid valves; I27.20 Pulmonary hypertension, unspecified; W19.XXXA Unspecified fall, initial encounter; D50.9 Iron deficiency anemia, unspecified; Z79.02 Long term (current) use of antithrombotics/antiplatelets; Z53.29 Procedure and treatment not carried out because of patient's decision for other reasons; Z91.14 Patient's other noncompliance with medication regimen; R79.1 Abnormal coagulation profile; E66.01 Morbid (severe) obesity due to excess calories; Z68.39 Body mass index [BMI] 39.0-39.9, adult; R19.5 Other fecal abnormalities; S70.12XA Contusion of left thigh, initial encounter
CPT/HCPCS: 36415; 70450; 80048; 80053; 80306; 80307; 81003; 83735; 83880; 84100; 84484; 85025; 85610; 93005; 94640; 96365; 96372; 96375; 97116; 97161; 99285; J1200; J1650; J1940; J2060; J3486; J3490; J7030

== ENCOUNTER 2021-03-20 18:06 | Inpatient (IN) | payer OTHER, SELFPAY ==
[2021-03-20] VITALS (8 sets, daily range): BP systolic 115–133; BP diastolic 72–97; PULSE 97–128; RESP 22; TEMP 36.8; O2SAT 90–100; BMI 39.4
--- NOTE | 2021-03-20 18:23 | ED_ITS ---
HPI - General Adult General: Chief complaint: Altered Mental Status Stated complaint: PSYCH EVAL Time Seen by Provider: 03/20/21 18:22 History of Present Illness: HPI narrative: Ms. Wheeler is a 61-year-old lady with history of psychiatric disorder who presents to the emergency department with altered mental status. She just recently left our neuropsychiatric unit and the exact circumstances of the patient's return are somewhat unclear as she provides multiple different versions. She was reportedly supposed to go to a hotel however was unable to articulate this to her cab provider. She possibly started stating confusing information and reportedly was therefore brought to the police station. She was subsequently brought back. Upon initial evaluation the patient provides little insight into current circumstances. She believes that she has at home she was trying to get to however also states that she has been told she cannot go back to that home. When questioned regarding the reason she is unable to articulate a reasonable explanation. Her thoughts process and speech pattern are impaired and tangential. History otherwise limited by mental status. Review of Systems General: Reports: ROS unobtainable due to mental status PFS ED PFSH: Medical History ASHD (arteriosclerotic heart disease) Atrial fibrillation CHF (congestive heart failure) COVID-19 January Dyslipidemia Essential hypertension Hx of deep venous thrombosis Mitral valve regurgitation Pulmonary hypertension Tricuspid valve regurgitation Type 2 diabetes mellitus Surgical History History of coronary artery bypass graft 2004 History of coronary artery stent placement History of total vaginal hysterectomy History of tubal ligation Status post colonoscopy Family History Other CAD (coronary artery disease) Diabetes Hypertension Social History Smoking and tobacco status: never smoked Alcohol intake: current Alcohol intake frequency: holidays/special occasions only Household members: significant other Marital status: Single Physical Exam Narrative: EXAM NARRATIVE: GENERAL/CONSTITUTIONAL -chronically ill appearing. No acute distress. Obese. Mildly disheveled. Eyes - PERRL, no conjunctival injection ENMT - Atraumatic external nose and ears. Moist mucous membranes NECK - supple. trachea midline CARDIOVASCULAR - regular rate and rhythm. RESPIRATORY -clear to auscultation bilaterally. No retractions or accessory muscle use. ABDOMEN/GI - Nontender, Nondistended. No tenderness to percussion or evidence of peritonitis MSK - Extremities without obvious deformity or tenderness to palpation SKIN - Warm, Dry NEURO - alert however thought process too disorganized to obtain orientation status. PSYCH -disorganized and tangential. Course ED course: - Patient was seen and evaluated by me at bedside - Patient placed on cardiac monitors, IV access obtained - Initial evaluation notable for altered mental status likely secondary to underlying psychiatric disorder - Labs notable for no acute abnormality to explain patient's symptoms - Upon serial reexamination after treatment the patient was similar - Unfortunately this is a complex situation, she was previously hospitalized and placed on a 96-hour hold however this was not extended. Her level of disorganization impairs her ability to perform even basic tasks safely such as follow-up with a previously arranged plan for her to go to a hotel. Reportedly for her transport she was unable to provide meaningful enough information to safely navigate around town. - Psychiatry service consulted and came to about the patient. Patient to be admitted to psychiatry service - Patient care handed off to overnight physician pending bed assignment. Vital Signs: Vital signs: Vital Signs Temperature 97.7 F 03/22/21 06:00 Pulse Rate 119 H 03/22/21 06:00 Respiratory Rate 19 H 03/22/21 06:00 Blood Pressure 125/93 03/22/21 06:00 Pulse Oximetry 95 03/22/21 06:00 MDM - General Adult Lab Data: Labs: Lab Results 03/20/21 03/20/21 Range/Units 20:15 20:15 WBC 7.6 (4.0-10.0) 10^3/ uL RBC 4.09 L (4.1-5.3) 10^6/u L Hgb 11.5 (11.5-15.3) g/dL Hct 37.5 (37.0-47.0) % MCV 91.7 (81-99) fl MCH 28.1 (28.0-34.0) pg MCHC 30.7 (30.0-36.0) g/dL RDW 16.5 H (12.1-15.1) % Plt Count 298 (130-400) 10^3/c mm MPV 10.1 (7.4-10.4) fL Neut % (Auto) 63.2 % Lymph % (Auto) 22.5 % Garza % (Auto) 11.5 % Eos % (Auto) 1.6 % Baso % (Auto) 0.9 % Neut # (Auto) 4.78 (1.8-7.7) 10^3/u L Lymph # (Auto) 1.7 (0.8-4.8) 10^3/u L Garza # (Auto) 0.9 (0.2-0.9) 10^3/u L Eos # (Auto) 0.1 (0.0-0.8) 10^3/u L Baso # (Auto) 0.1 (0.0-0.1) 10^3/u L Nucleated RBC % (a uto) 0 % Nucleated RBCs # 0.0 /100WBC Sodium 138 (136-145) mmol/L Potassium 4.2 (3.5-5.1) mmol/L Chloride 101 (98-107) mmol/L Carbon Dioxide 24 (22-29) mmol/L Anion Gap 17.2 (5-19) BUN 17 (8-23) mg/dL Creatinine 1.0 H (0.5-0.9) mg/dL GFR Calculation 56.2 L (90-130) mL/min Glucose 100 (65-115) mg/dL Calculated Osmolal ity 288 (285-295) mOsm/k g Calcium 9.2 (8.5-10.5) mg/dL Total Bilirubin 0.7 (0.15-1.2) mg/dL AST 17 (0-32) U/L ALT 11 (0-33) U/L Alkaline Phosphata se 58 (35-105) IU/L Total Protein 6.3 L (6.6-8.7) g/dL Albumin 3.4 L (3.5-5.2) g/dL Globulin 2.9 (1.3-4.6) g/dL Salicylates < 0.3 L (3-10) mg/dL Acetaminophen < 5.0 L (10-30) ug/mL Discharge Plan Discharge Patient Disposition: Admitted As Inpatient Admit Provider: Justin Landa Condition: Stable Coding Level of Care Code ED Workers Compensation Legal Secretary for Jimmie Arias
--- NOTE | 2021-03-20 18:38 | ECG_ITS ---
[facility] Test Date: 2021-03-20 Pat Name: Ivette Wheeler Department: Room: Gender: Female Gis Analyst Developer: : 1960 Requested By: Bubba Wallis Order Number: [id number] [place] MD: AGNES SARABIA Measurements Intervals [place] Rate: 111 P: [place]: QRS: 47 QRSD: 78 T: 34 QT: 341 QTc: 464 Interpretive Statements ATRIAL FIBRILLATION WITH RAPID VENTRICULAR RESPONSE WITH ABERRANT CONDUCTION OR VENTRICULAR PREMATURE COMPLEXES LOW QRS VOLTAGE IN PRECORDIAL LEADS [QRS DEFLECTION < 1.0 mV IN CHEST LEADS] SEPTAL MYOCARDIAL INFARCTION , OF INDETERMINATE AGE [40+ ms Q WAVE IN V1/V2] Compared to ECG 03/20/2021 06:20:09 Ventricular premature complex(es) now present Aberrant conduction of supraventricular beat(s) now present Low QRS voltage now present Myocardial infarct finding now present Electronically Signed On 03-20-2021 21:01:08 CDT by AGNES SARABIA [id number]
--- NOTE | 2021-03-20 19:07 | PC.PHAR ---
PT UNABLE TO CONFIRM MEDICATIONS. PT LEFT NPU AMA A COUPLE OF HOURS AGO. NO ONE HELPS HER WITH HER HOME MEDICATIONS. WARFARIN IS ON HER LIST, BUT SHE DOESN'T KNOW THE STRENGTH OR THE DIRECTIONS. USED MED HISTORY AND PHARMACY LIST.
[2021-03-20] MEDS: sodium chloride 0.9% 500 ML 999 ML IV (19:34)
[2021-03-20 20:21] LABS: Basophils # 0.1 10^3/uL (0.0-0.1); Basophils % 0.9 %; Eosinophils # 0.1 10^3/uL (0.0-0.8); Eosinophils % 1.6 %; Hematocrit 37.5 % (37.0-47.0); Hemoglobin 11.5 g/dL (11.5-15.3); Lymphocytes # 1.7 10^3/uL (0.8-4.8); Lymphocytes % 22.5 %; Mean Corpuscular HGB Conc 30.7 g/dL (30.0-36.0); Mean Corpuscular Hemoglobin 28.1 pg (28.0-34.0); Mean Corpuscular Volume 91.7 fl (81-99); Mean Platelet Volume 10.1 fL (7.4-10.4); Monocytes # 0.9 10^3/uL (0.2-0.9); Monocytes % 11.5 %; Neutrophils # 4.78 10^3/uL (1.8-7.7); Neutrophils % 63.2 %; Nucleated Red Blood Cells % 0 %; Platelet Count 298 10^3/cmm (130-400); Red Blood Count 4.09 10^6/uL (4.1-5.3); Red Cell Distribution Width 16.5 % (12.1-15.1); White Blood Count 7.6 10^3/uL (4.0-10.0)
[2021-03-20 20:47] LABS: Alanine Aminotransferase 11 U/L (0-33); Albumin Level 3.4 g/dL (3.5-5.2); Alkaline Phosphatase 58 IU/L (35-105); Anion Gap 17.2 (5-19); Aspartate Amino Transferase 17 U/L (0-32); Blood Urea Nitrogen 17 mg/dL (8-23); Calcium 9.2 mg/dL (8.5-10.5); Carbon Dioxide 24 mmol/L (22-29); Chloride 101 mmol/L (98-107); Globulin 2.9 g/dL (1.3-4.6); Glomerular Filtration Rate 56.2 mL/min (90-130); Glucose 100 mg/dL (65-115); Osmolality Calculated 288 mOsm/kg (285-295); Potassium 4.2 mmol/L (3.5-5.1); Sodium 138 mmol/L (136-145); Total Bilirubin 0.7 mg/dL (0.15-1.2); Total Protein 6.3 g/dL (6.6-8.7)
[2021-03-20 20:48] LABS: Salicylate < 0.3 mg/dL (3-10)
[2021-03-20 20:49] LABS: Acetaminophen < 5.0 ug/mL (10-30)
[2021-03-20] MEDS: haloperidol inj 5 mg/mL INJ 1 mL 2.5 MG IVP (21:14)
[2021-03-20] MEDS: LORazepam 2 mg/mL INJ 1 mL 1 MG IVP (21:14)
--- NOTE | 2021-03-20 22:58 | PC.NURSE ---
PATIENT QUIET AND CALM AFTER MEDICATIONS. PATIENT RESTING AND WATCHING TV IN BED. PATIENT VITAL SIGNS WITHIN NORMAL LIMITS. NO FURTHER NEEDS AT THIS TIME.
[2021-03-21 02:00] VITALS: BP 135/11; PULSE 85; O2SAT 98
[2021-03-21] MEDS: LORazepam 2 mg Tablet PO ×2 (04:40→21:51)
--- NOTE | 2021-03-21 07:16 | PC.NURSE ---
pt not wanting to go to NPU. Pt evaluated by ED physician in ER room this morning. affidavit filled out and pt placed on 96 hour hold
[2021-03-21 08:00] VITALS: BP 129/87; PULSE 77; RESP 17; TEMP 36.5; O2SAT 94
[2021-03-21] MEDS: fenofibrate 145 mg Tablet PO (10:48)
[2021-03-21] MEDS: omega-3 fatty acids 1,000 mg Capsule 1000 MG PO (10:48)
[2021-03-21] MEDS: potassium chloride ER 10 mEq Tablet PO (10:48)
[2021-03-21] MEDS: ARIPiprazole 10 mg Tablet 5 MG PO (10:48)
[2021-03-21] MEDS: levothyroxine 150 mcg Tablet PO (10:49)
[2021-03-21] MEDS: sertraline 50 mg Tablet PO (10:49)
[2021-03-21] MEDS: clopidogrel 75 mg Tablet PO (10:49)
--- NOTE | 2021-03-21 12:15 | P.HP_ITS ---
Providers/Chief Complaint Admitting Physician: Justin Landa MD Primary Care Provider: Yaw Sinclair MD Chief Complaint: PSYCH EVAL HPI NPU History of Present Illness Ivette Wheeler is a 61 year old female who was discharged from the [facility] neuropsychiatric unit yesterday and then presented again to the [facility] emergency department with manic flight of ideas, confusion, and inability to manage basic activities of daily living. She was readmitted to the neuropsychiatric unit with the plan to seek guardian status for the patient, so that someone can help make her life decisions which she is unable to make for herself. The patient left the hospital yesterday via Uber, and was taken to the hotel that she had indicated she was going to stay at. However, according to reports, she got into an argument with the hotel, refused to stay there, then refused to get out of the Uber. A chief technology officer involved in the situation told our ED that the Uber refuse driver then offered to take her to another location. The patient told the Uber refuse driver that she did not know where she wanted to go, did not know where she lived, and did not know what to do. The Uber refuse driver then drove her to the police station to ask for their assistance. The police asked the Uber refuse driver to drive the patient to the hospitals ED, which the patient indicated was her preference. When the patient arrived at the ED, she asked the ED for assistance because she did not know what else to do to take care of her self. In addition, she told the chief technology officer that the hospital had kicked her out yesterday. She must not have remembered that she had ask to be discharged multiple times, and we finally discharged her yesterday against medical advice. She was readmitted because she would be a danger to herself if left to her own devices. She would not be able to care for her medical needs. In addition, no home health agency in the area is willing to work with her due to her recent difficulties and behavior. Prior to her recent admission, she was attempting to cross the highway using her walker and fell, endangering her life. These events now draw conclusive picture that the patient is unable to care for her daily needs. There was a concern about her difficulty managing her own affairs when we discharged her yesterday, but we erred on the side of patient autonomy in making her decision to allow her to go where she wanted to go. Given that she was not able to even manage the transfer from the [facility] to the hotel, we now concluded that she needs assistance in managing her affairs. She does not understand her current psychiatric condition. She feels she has no mental health issues and was only admitted to our unit in the first place bec ause her daughter was upset with her. On the other hand, she does say she has memory problems caused by Covid and that I should not expect her to remember having told me something before. She is unable to reconcile her view that she has no mental health issues and her view that Covid has caused her significant memory problems. When I ask her for her understanding of her medical conditions, she likewise has difficulty describing the conditions she is suffering from and the treatment they require. Because she is unable to understand her medical and psychiatric conditions, and cannot understand and manage her treatment, she is in need of guardianship. Recent notes are copied and pasted to give a full picture of the patient's disability. Per the 03/08/[address] Jaycee Chen: Ivette Wheeler is a 61 year old female who presented to the emergency room with 96-hour hold paperwork via EMS. She was recently here for neuropsychiatric admission for depression with psychoses. She was so suicidal then as well. Looks like she was discharged on March 02 with several new prescriptions including an increased dose of diltiazem, Plavix, Bumex, increased Coumadin, Zoloft, Abilify and bacitracin. She was noted to have significant flight of ideas and kalia in the emergency room. She has received some Ativan some not able to get any history directly from her. ER notes indicate that family stated she was supposed to go to an assisted living facility but did not and has not been taking care of herself. She has chronic atrial fibrillation and was noted to be in atrial fibrillation with rapid ventricular response in the ER. She was watched for quite some time without improvement in her rate control and was ultimately put on a Cardizem drip. Hospitalist were consulted for admission to medically stabilize her before planned psychiatric stay. The 03/07/21 ED note says: 61-year-old female who is here with EMS under 96-hour hold. Patient has been acting erratic per family. Here she does have flight of ideas and appears extremely manic. She denies any SI or HI but has very pressured speech. Per family she is supposed to go to assisted living and did not and that they states she really is not been taking care of her self. They were concerned that she is a threat to herself. She denies any suicidal or homicidal complaints. She has no medical complaints. She was admitted to the [facility] for definitive treatment of the medical concerns. After she was medically stable request for transfer to the neuropsychiatric unit for definitive treatment of her issues was requested. Patient presents today re porting that she does not know why she is here. She denies that the issues that were raised are valid and endorses a desire to be discharged back home. The affidavits report erratic behavior. Her making choices about her medical care that are unsafe. Attempting to walk across the road when she can barely walk down the hallway. Endorsing that she was being abused by everyone around her. As dependent as she is on assistance she reportedly ran her home nurse off. She denies any of these behaviors and became very frustrated not wanting to talk further about the situation. She denies any changes from when she left last week but reports that even then she should not have been here. Per the [facility] note dated 03/06/2021: Intervention:: Clients home health called stating that the client was calling 911 multiple times, calling home health and stating that she has a wound and is in pain. Staff at home health called 911 and was told that client has already called and that an ambulance was on the way. Home health staff made a reports to department of senior services. CRW was unable to get ahold of client. Client Response to Intervention:: No direct contact with client Final Disposition:: Report was submitted to department of health and senior services; Per the [facility] note dated 03/05/2021: Intervention:: A concerned other contacted [facility] CRW and stated that she is concerned about how client is acting, client called 911 several times; she contacted home health several times. She stated that she has a sore and is in pain. Concerned other stated that she is concerned with the way client is acting. She stated she reported it to [place] [facility], she stated that she feels she should not be home alone and needs to be in a facility that she had all around the clock help. Client Response to Intervention:: No direct contact with client. Final Disposition:: CRW called client several times and no answer. Concerned other had called 911 and stated that the ambulance was on the way to clients home. Client did not answer her calls that were placed. CRW looked in clients chart and it does not show that she was admitted to the hosp. Client was in the NPU and discharged 03.02.21 she was in on a 96hr hold that her family had placed. Concerned other was not able to get ahold of clients daughter and called clients SG and he does not want anything to do with the client. CRW will do a follow up call on client 03.06.21. Per the / [facility] inpatient psychiatric evaluation: History of Present Illness Ivette Wheeler is a 61 year old female who presented to the [facility] ED on a 96-hour hold for acute change in behavior with delusions and requests for her boyfriend to shoot and kill. She was medically stabilized and cleared. ED note states: 61yo patient w/ hx of multiple psychiatric issues including psychosis and kalia presents for psychiatric clearance. Patient placed under psych involuntary hold for episodes of delusion leading to inability to take care of self and suicidal ideation (asking boyfriend to fire a gun at her). On arrival, the patient is AAOx3 and cooperative with my evaluation. No focal complaints of chest pain, shortness of breath, palpitations, N/V, focal GI/ complaints. Currently denies SI/HI. No complaints of hallucinations... On reassessment, labs and workup wnl. Patient is hemodynamically stable with no acute medical complaints. Discussed findings of leg swelling and erythema with patient who reports that she is seeing primary care provider for the symptoms. Patient has had these findings since her heart attack a few months ago. Patient report that she has not found any antibiotics. Concern for cellulitis, I have offered patient antibiotics for the lower extremity swelling and erythema, patient declined this time. I have discussed with psychiatric provider Dr. Landa who agrees with plan for admiss ion for psych unit. Patient's daughter, Carol Bright, states in her petition dated 02/27/2021, she is having a change in her behavior. She is having delusions and being very hostile to anyone that tries to help her. She is not meeting her basic needs. She has a lot of health problems, not taking her medication, eating or sleeping. She asked her live-in boyfriend to take her out in the yard and she would her many times. She begs God to take her. An affidavit from Brenton angelorn on 02/27/2021 states, I am concerned for the safety and wellbeing of Ivette Wheeler due to her increasingly worsening depression and bizarre delusional behaviors. She has been experiencing hallucinations, speaking to people who are not there. She believes her TV is recording everyone's actions in her home. She has asked her long-term live-in boyfriend to shoot her on several occasions. Anyone who disagrees with her delusions is against her and she becomes verbally abusive, threatens to call the police. Given her extensive medical history and medical needs, I am concerned that she is not taking care of her self at this time. She is not been taking her medications, eating, sleeping or caring for herself as she once did. The changes in her behavior and mental health have steadily declined since her son, Dayron Wheeler, committed suicide in August of this year. She tries to manipulate nearly everyone into doing everything for her, despite her being physically capable. Failure to do what she wants causes her to become verbally abusive. She is capable of acting of sound mind for some period of time. The patient reports that she has been feeling depressed, has not slept for a week, has decreased appetite and energy, and has feelings of helplessness, hopelessness and worthlessness. When asked about suicidal ideation, she says, I would just as soon . I told my grandson that, and I meant it. She also says I beg my boyfriend to kill me. I was tired of feeling so sick. She denies homicidal ideation. She denies hearing voices and seeing things that others do not see. However she says I am talking to Noel every day. The Lord is working through me. She says this in a somewhat mysterious way and cannot explain what she means. The patient reports this is her first psychiatric hospitalization. She says she has not taken psychiatric medication until recently, when someone prescribed an antipsychotic, which she does not think she needs. She said she had her first therapy session the other day with Dr. Porter. She says she drinks an o ccasional jayme, and does not use drugs or cigarettes. Psychiatric history: As above. Substance use history: As above. Family history: Patient denies mental health or addiction issues on either side of the family and denies suicide attempts or completions in the family. Psychosocial history: Patient says she grew up in the [facility], but lived in [place] for some period of time. 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 She says she was once and has 2 children. Legal history: No legal difficulties. Medical history?discharge note from [facility] medical unit on 02/18/2021 states: This is a 60-year-old female with a past medical history of diastolic CHF, CAD status post CABG, with most recent history of stenting 02/26/2020, atrial fibrillation, history of supratherapeutic INR with thigh hematoma leading to anemia, needing admissions between February 08 to February 11, recent COVID-19 infection, recent ER visit for heat exhaustion, currently her Plavix was discontinued, Coumadin was held since 725, who presents to [facility] due to complaints of generalized weakness and intermittent chest pain. For patient's chest pain, she was admitted to [facility] for NSTEMI, elevated troponins, 6-hour troponin to 14.7, 6-hour delta 13.7, no new EKG changes, echocardiogram showed mildly reduced ejection fraction to 50%, with mild anterior and septal wall hypokinesis, cardiology was consulted, who recommended medical management, with continuing to hold Coumadin and Plavix given her anemia and her left thigh hematoma, with outpatient follow-up for consideration of stress testing. Decision to resume anticoagulation and antiplatelet therapy will be made once patient follows up with cardiology as outpatient, hematoma is stable, hemoglobin is stable. Patient will follow up with cardiology in the next week. Patient was advised short of recurrent chest pain, the emergency room. Meds NPU Home Medications Medication Instructions Recorded Confirmed Last Taken Type pantoprazole 40 mg PO BID #60 tab 02/11/21 03/20/21 Unknown Rx clopidogrel 75 mg PO DAILY 30 Days #30 tab 03/02/21 03/20/21 Unknown Rx Advair Diskus 1 puff INHALATION BID 03/20/21 03/20/21 Unknown History bacitracin 1 applic TOPICAL TID 03/20/21 03/20/21 Unknown History diltiazem HCl 180 mg PO DAILY 03/20/21 03/20/21 Unknown History doxycycline hyclate 100 mg PO DAILY 03/20/21 03/20/21 Unknown History fenofibrate nanocrystallized 145 mg PO DAILY #30 tab 03/20/21 03/20/21 02/08/21 Rx furosemide 40 mg PO DAILY@0800 #30 tab 03/20/21 03/20/21 Unknown Rx levothyroxine [Euthyrox] 150 mcg PO DAILY #30 tab 03/20/21 03/20/21 02/08/21 Rx metformin 750 mg PO BID 03/20/21 03/20/21 Unknown History nystatin [Nystop] 1 applic TOPICAL 0900,2100 #30 g 03/20/21 03/20/21 Unknown Rx omega-3 fatty acids [Fish Oil 1,000 mg PO BID #60 cap 03/20/21 03/20/21 01/22/21 06:00 Rx Concentrate] paroxetine HCl 10 mg PO DAILY 03/20/21 03/20/21 Unknown History potassium chloride 10 meq PO DAILY #30 tab 03/20/21 03/20/21 02/08/21 Rx sennosides [Senna Lax] 8.6 mg PO 0900,2100 #60 tab 03/20/21 03/20/21 Unknown Rx sertraline 50 mg PO DAILY #30 tab 03/20/21 03/20/21 Unknown Rx sotalol 80 mg PO BID@0900,2100 03/20/21 03/20/21 Unknown History warfarin 4 mg PO TID 03/20/21 03/20/21 Unknown History Allergies Allergy/AdvReac Type Severity Reaction Status Date / Time atorvastatin [From Lipitor] Allergy Unknown Verified 02/27/21 17:47 lisinopril Allergy Unknown Verified 02/27/21 17:47 PFSH NPU PFSH: Medical History ASHD (arteriosclerotic heart disease) Atrial fibrillation CHF (congestive heart failure) COVID-19 January Dyslipidemia Essential hypertension Hx of deep venous thrombosis Mitral valve regurgitation Pulmonary hypertension Tricuspid valve regurgitation Type 2 diabetes mellitus Surgical History History of coronary artery bypass graft 2005 History of coronary artery stent placement History of total vaginal hysterectomy History of tubal ligation Status post colonoscopy Family History Other CAD (coronary artery disease) Diabetes Hypertension Social History Smoking and tobacco status: never smoked Alcohol intake: current Alcohol intake frequency: holidays/special occasions only Household members: significant other Marital status: Single Mental Status Exam MSE Comments: I met with the patient in the day room, and they were somewhat sloppily groomed and dressed, wearing hospital scrubs. She was mildly agitated, insisting on talking about what she wanted to talk about, having difficulty taking turns in the conversation, but making good eye contact. She has mild psychomotor agitation Speech is at a rapid rate and louder than normal volume, and difficult to interrupt. Alert, oriented to person, place, time, situation. However she states she does not believe she needs to be in the hospital. When I attempt to talk to her about the events of the previous 18 hours, she is unable to integrate the fact that she returned to the ED and confusion asking for help with her need to be in the hospital now. Attention and concentration were intact to exam. She is able to spell the word WORLD correctly forwards and backwards Memory is inadequate. When asked her about her memory of recent events as well as her memory of conversations we had as recently as yesterday, she says and exasperated tone, honey, don't you know that I had Covid recently and I cannot remember anything. Mood is irritable. Affect is irritable. Thought process is perseverative and illogical. Thought content: She denies auditory or visual hallucinations, no suicidal ideation or homicidal ideation. No delusions are noted. Insight and judgment are severely impaired. She does not understand that she has mental health issues, and cannot recognize that she does not understand her current mental and physical conditions nor her needs. She is impulsive and demanding, but her demands would not lead to meeting her actual needs. Vitals/I&O/Wt Last Vital Signs Temp 97.7 F 03/21/21 08:00 Pulse 77 09/01/21 08:00 Resp 17 03/21/21 08:00 BP 129/87 03/21/21 08:00 Pulse Ox 94 03/21/21 08:00 03/20/21 03/21/21 03/21/21 22:59 06:59 14:59 Intake Total 500 / 500 Balance 500 / 500 Weight last 48 hrs Weight 104.326 kg Data NPU : 03/20/21 20:15 03/20/21 20:15 A&P Assessment and plan (1) Acute psychosis: Status: Resolved (2) Cellulitis and abscess of leg: Status: Inactive (3) Cellulitis: Status: Acute Qualifiers: Site of cellulitis: extremity Site of cellulitis of extremity: lower extremity Laterality: unspecified laterality Qualified Code(s): L03.119 - Cellulitis of unspecified part of limb (4) Fall: Status: Inactive Qualifiers: Encounter type: initial encounter Qualified Code(s): W19.XXXA - Unspecified fall, initial encounter (5) Chronic atrial fibrillation with RVR: Status: Resolved (6) Atherosclerosis of coronary artery of [place] heart without angina pectoris: Status: Chronic (7) Heme + stool: Status: Resolved (8) Elevated troponin I level: Status: Resolved (9) Anemia: Status: Resolved Qualifiers: Anemia type: iron deficiency Iron deficiency anemia type: other iron deficiency Qualified Code(s): D50.8 - Other iron deficiency anemias (10) NSTEMI (non-ST elevated myocardial infarction): Status: Resolved (11) Acute blood loss anemia: Status: Resolved (12) Diastolic CHF: Status: Resolved Qualifiers: Heart failure chronicity: acute on chronic Qualified Code(s): I50.33 - Acute on chronic diastolic (congestive) heart failure (13) Chronic anticoagulation: Status: Chronic Additional A&P Information Ivette Wheeler is a 61 year old female who presented to the [facility] ED a few hours after being discharged from the neuropsychiatric unit. She continues to have psychosis and erratic behavior, and to put herself in dangerous situations with seemingly very impulsive behavior. 1. Continue current medication. 2. Continue every 15 minute checks for safety. 3. Encourage individual, group and milieu therapies. 4. Will follow hospitalist's recommendations on medical comorbidities, and identify any recommendations for management after discharge and if he would jeanette medical clearance for her discharge given the change in her coagulation status. 5. Need to develop an adequate plan for discharge to the community. 6. She will likely need to be placed on a 21-day hold when the 96-hour hold expires, to assure her safety and to assure that she takes needed medication. 7. She is in need of guardianship, and we will initiate that process. Involuntary Hold Information 96 Hour Hold: 96 Hour Involuntary Admission: Yes 96 Hour Hold Ending Date: 03/27/21 96 Hour Hold Ending Time: 07:23 Attestations NPU Medical Necessity Statement*: Inpatient hospitalization is medically necessary and the clinically appropriate intervention at this time. We will monitor med ications and make changes as indicated. Likely length of stay 10-14 days. Coding Level of Care Code Acute Wood Scrap Handler for g Fwd Diagnoses Acute psychosis F23 Cellulitis and abscess of leg L03.119; L02.419 Cellulitis L03.119 Site of cellulitis: extremity Site of cellulitis of extremity: lower extremity Laterality: unspecified laterality Fall W19.XXXA Encounter type: initial encounter Chronic atrial fibrillation with RVR I48.20 Atherosclerosis of coronary artery of [place] heart without angina pectoris I25.10 Heme + stool R19.5 Elevated troponin I level R77.8 Anemia D50.8 Anemia type: iron deficiency Iron deficiency anemia type: other iron deficiency NSTEMI (non-ST elevated myocardial infarction) I21.4 Acute blood loss anemia D62 Diastolic CHF I50.33 Heart failure chronicity: acute on chronic Chronic anticoagulation Z79.01
[2021-03-21 14:00] VITALS: BP 119/51; PULSE 116; RESP 16; TEMP 36.8; O2SAT 95
[2021-03-21] MEDS: apixaban 5 mg Tablet PO ×2 (17:19→20:22)
[2021-03-21] MEDS: pantoprazole DR 40 mg Tablet PO (17:19)
[2021-03-21] MEDS: metformin XR 500 MG Tablet 750 MG PO (17:19)
[2021-03-21] MEDS: acetaminophen 325 mg Tablet 650 MG PO (18:09)
[2021-03-21] MEDS: OLANZapine 5 mg ODT PO (20:22)
[2021-03-21] MEDS: hyDROXYzine 25 mg Capsule 50 MG PO (20:22)
[2021-03-21] MEDS: sotalol 80 mg Tablet PO (20:23)
[2021-03-21] MEDS: sennosides 8.6 mg Tablet PO (20:23)
--- NOTE | 2021-03-21 20:30 | PC.NURSE ---
pt continuously requesting staff to come help me, Deepali needs help. pt goes back and forth between room and nurses desk, talking constantly. Other pts on the unit noted getting upset at this pt. Zyprexa 5mg po and vistaril 50mg po given.
[2021-03-21 20:31] VITALS: BP 125/93; PULSE 119; RESP 19; TEMP 36.5; O2SAT 95
--- NOTE | 2021-03-21 21:55 | PC.NURSE ---
pt continues with increased agitation. Dr Landa notified, order received. Ativan 2mg po given.
--- NOTE | 2021-03-22 | PC.NURSE ---
pt noted resting quietly in room with both eyes closed.
[2021-03-22] MEDS: acetaminophen 325 mg Tablet 650 MG PO ×3 (02:05→20:05)
--- NOTE | 2021-03-22 03:20 | PC.NURSE ---
DR Landa notified that patient is becoming more short of breath and seems to be retaining more fluid, Increased weakness, increased heart rate. Patient noted to become unable to perform self ADL's. Patients lower extremities continue to be edematous with increased weeping.
[2021-03-22 06:00] VITALS: BP 125/93; PULSE 119; RESP 19; TEMP 36.5; O2SAT 95
[2021-03-22] MEDS: doxycycline 100 mg Tablet PO (09:01)
[2021-03-22] MEDS: metformin XR 500 MG Tablet 750 MG PO ×2 (09:01→17:34)
[2021-03-22] MEDS: ARIPiprazole 10 mg Tablet 7.5 MG PO (09:02)
[2021-03-22] MEDS: clopidogrel 75 mg Tablet PO (09:02)
[2021-03-22] MEDS: fenofibrate 145 mg Tablet PO (09:02)
[2021-03-22] MEDS: FUROsemide 40 mg Tablet PO (09:02)
[2021-03-22] MEDS: dilTIAZem ER (24HR) 180 mg Capsule PO (09:02)
[2021-03-22] MEDS: pantoprazole DR 40 mg Tablet PO ×2 (09:02→17:34)
[2021-03-22] MEDS: omega-3 fatty acids 1,000 mg Capsule 1000 MG PO (09:03)
[2021-03-22] MEDS: potassium chloride ER 10 mEq Tablet PO (09:03)
[2021-03-22] MEDS: sertraline 50 mg Tablet PO (09:03)
[2021-03-22] MEDS: levothyroxine 150 mcg Tablet PO (09:03)
[2021-03-22] MEDS: apixaban 5 mg Tablet PO ×2 (09:30→20:05)
--- NOTE | 2021-03-22 10:52 | P.PN_ITS ---
Subjective NPU Subjective: Interval history: I met with the treatment team to discuss the patient's case. She has been slightly more cooperative last night and this morning. We did consult the hospitalist about her afib and CHF. Dr. Marie is seeing her now. The patient says that her mood is fine, and says nothing is wrong with her. In the next breath she says that Covid has made her hear noises in her head and has impaired her ability to remember things. She wants me to contact her heart doctor to tell him these things. I told her that Dr. Marie would be glad to address any issues she has. She denies suicidal and homicidal ideation. No visual hallucinations. She denies medication side effects, but she does seem a little sleepy after taking the Abilify 7.5 mg this morning. She has done well on 5 mg but got quite sleepy on 10 mg. Hopefully she can tolerate this dose. She does seem somewhat calmer today, and this could be the increased dose of Abilify helping to organize her thinking. I spoke with her yesterday evening and told her that I heard she had told the police that we had kicked her out of the hospital. She said that that was her experience. I said that it was actually the other way around, she insisted on leaving AGAINST MEDICAL ADVICE, and had talked about this multiple times. She did not know what to say about that. Mental Status Exam MSE Comments: I met with the patient outside the nurses station. She is somewhat more appropriately groomed this morning.. She continues to be mildly agitated, insisting on talking about what she wanted to talk about, having difficulty taking turns in the conversation, but making good eye contact. She repeatedly says, no one listens to me. The reality is that the psychiatrist, nurses and techs spend more time listening to her than to any other patient. She has mild psychomotor agitation Speech is at a rapid rate and louder than normal volume, and difficult to interrupt. Alert, oriented to person, place, time, situation. Attention and concentration were intact to exam. She is able to spell the word WORLD correctly forwards and backwards Memory is inadequate. She cannot remember conversations we had earlier today. Mood is irritable. Affect is a little more pleasant than usual. Thought process is perseverative and illogical. Thought content: She says that she hears noises in her ears but denies other auditory or visual hallucinations.she says she has no suicidal ideation or homicidal ideation. She does have delusional ideas, such that her daughter placed her in the hospital because she is jealous. Insight and judgment are severely impaired. She does not understand that she has mental health issues, and cannot recognize that she does not understand her current mental and physical conditions nor her needs. She is impulsive and demanding, but her demands would not lead to meeting her actual needs. Vitals/I&O/Wt Last Vital Signs Temp 97.7 F 03/22/21 06:00 Pulse 119 H 03/22/21 06:00 Resp 19 H 03/22/21 06:00 BP 125/93 03/22/21 06:00 Pulse Ox 95 03/22/21 06:00 Weight last 48 hrs Weight 104.326 kg Data NPU : 03/20/21 20:15 03/20/21 20:15 A&P Assessment and plan (1) Acute psychosis: Status: Resolved (2) Cellulitis: Status: Acute Qualifiers: Site of cellulitis: extremity Site of cellulitis of extremity: lower extremity Laterality: unspecified laterality Qualified Code(s): L03.119 - Cellulitis of unspecified part of limb (3) Atherosclerosis of coronary artery of [place] heart without angina pectoris: Status: Chronic (4) Chronic anticoagulation: Status: Chronic (5) Essential hypertension: Status: Chronic (6) Dyslipidemia: Status: Chronic (7) ASHD (arteriosclerotic heart disease): Status: Chronic (8) Chronic atrial fibrillation with RVR: Status: Resolved (9) CHF (congestive heart failure): Status: Inactive Qualifiers: Heart failure type: diastolic Heart failure chronicity: chronic Qualified Code(s): I50.32 - Chronic diastolic (congestive) heart failure (10) COVID-19: Status: Inactive (11) Diastolic CHF: Status: Resolved Qualifiers: Heart failure chronicity: acute on chronic Qualified Code(s): I50.33 - Acute on chronic diastolic (congestive) heart failure (12) Elevated troponin I level: Status: Resolved (13) NSTEMI (non-ST elevated myocardial infarction): Status: Resolved Additional A&P Information Ivette Wheeler is a 61 carlitos old female who presented to the [facility] ED a few hours after being discharged from the neuropsychiatric unit. She continues to have psychosis and erratic behavior, and to put herself in dangerous situations with seemingly very impulsive behavior. 1. Continue current medication. We increased Abilify to 7.5 mg daily. 2. Continue every 15 minute checks for safety. 3. Encourage individual, group and milieu therapies. 4. Will follow hospitalist's recommendations on medical comorbidities, and identify any recommendations for management after discharge and if he would jeanette medical clearance for her discharge given the change in her coagulation status. 5. Need to develop an adequate plan for discharge to the community. 6. She will likely need to be placed on a 21-day hold when the 96-hour hold expires, to assure her safety and to assure that she takes needed medication. 7. She is in need of guardianship, and we will initiate that process. Involuntary Hold Information 96 Hour Hold: 96 Hour Involuntary Admission: Yes 96 Hour Hold Ending Date: 03/27/21 96 Hour Hold Ending Time: 07:23 Attestations NPU Medical Necessity Statement*: Inpatient hospitalization is medically necessary and the clinically appropriate intervention at this time. We will monitor medications and make changes as indicated. Likely length of stay 10-14 days. She will likely need to be placed on a 21-day hold when the 96-hour hold exp ires, to assure her safety and to assure that she takes needed medication. She is in need of guardianship, and we will initiate that process. 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[employer] [facility]as Diagnoses Acute psychosis F23 Cellulitis L03.119 Site of cellulitis: extremity Site of cellulitis of extremity: lower extremity Laterality: unspecified laterality Atherosclerosis of coronary artery of [place] heart without angina pectoris I25.10 Chronic anticoagulation Z79.01 Essential hypertension I10 Dyslipidemia E78.5 ASHD (arteriosclerotic heart disease) I25.10 Chronic atrial fibrillation with RVR I48.20 CHF (congestive heart failure) I50.32 Heart failure type: diastolic Heart failure chronicity: chronic COVID-19 U07.1 Diastolic CHF I50.33 Heart failure chronicity: acute on chronic Elevated troponin I level R77.8 NSTEMI (non-ST elevated myocardial infarction) I21.4
[2021-03-22] MEDS: sennosides 8.6 mg Tablet PO (11:05)
[2021-03-22] MEDS: sotalol 80 mg Tablet PO ×2 (11:06→22:21)
[2021-03-22] MEDS: phenyleph-mineral oil-petrolat Oint 28 gm 1 APPLIC TOPICAL (13:00)
--- NOTE | 2021-03-22 13:32 | PM.CONSULT ---
Providers/Reason For Consult Consulting Physician/Specialty*: Tito Marie MD, hospitalist Reason for Consult*: Medical management Attending Physician: Justin Landa MD Primary Care Provider: Yaw Sinclair MD History of Present Illness History of Present Illness Ivette Wheeler is a 61 year old female admitted to the psychiatric unit secondary to exacerbation of bipolar disorder. She has history of frequent hospitalizations as well as multiple medical comorbidities. I have been asked to consult on her case, particularly for her atrial fibrillation with rapid ventricular rate. Patient herself reports that she wants to go home. She states she is weak, and has difficulty hearing out of her right ear COVID ear. She states it constantly buzzes noise. She jumps from subject to subject, and it is difficult to keep her concentrating on pertinent history. This complicated her consultation significantly. Review of Systems General: Reports: 10 or more systems reviewed and unremarkable except in HPI and below Const: Denies: fever(s) Eyes: Denies: change in vision ENMT: Reports: other (Constant ringing in her right ear) Card: Reports: irregular heart rhythm Resp: Reports: dyspnea GI: Denies: abdominal pain : Denies: flank pain Musc: Denies: neck pain Skin/Breast: Denies: rash Neuro: Denies: headache(s) Psych: Reports: anxiety Endo: Denies: polyuria Flavio/Lymph: Denies: easy bruising All/Imm: Denies: urticaria Meds/Allergies Home Medications and Allergies Home Medications Medication Instructions Recorded Confirmed Last Taken Type pantoprazole 40 mg PO BID #60 tab 02/11/21 03/20/21 Unknown Rx clopidogrel 75 mg PO DAILY 30 Days #30 tab 03/02/21 03/20/21 Unknown Rx Advair Diskus 1 puff INHALATION BID 03/20/21 03/20/21 Unknown History bacitracin 1 applic TOPICAL TID 03/20/21 03/20/21 Unknown History diltiazem HCl 180 mg PO DAILY 03/20/21 03/20/21 Unknown History doxycycline hyclate 100 mg PO DAILY 03/20/21 03/20/21 Unknown History fenofibrate nanocrystallized 145 mg PO DAILY #30 tab 03/20/21 03/20/21 02/08/21 Rx furosemide 40 mg PO DAILY@0800 #30 tab 03/20/21 03/20/21 Unknown Rx levothyroxine [Euthyrox] 150 mcg PO DAILY #30 tab 03/20/21 03/20/21 02/08/21 Rx metformin 750 mg PO BID 03/20/21 03/20/21 Unknown History nystatin [Nystop] 1 applic TOPICAL 899,2099 #30 g 03/20/21 03/20/21 Unknown Rx omega-3 fatty acids [Fish Oil 1,000 mg PO BID #60 cap 03/20/21 03/20/21 01/22/21 06:00 Rx Concentrate] paroxetine HCl 10 mg PO DAILY 03/20/21 03/20/21 Unknown History potassium chloride 10 meq PO DAILY #30 tab 03/20/21 03/20/21 02/08/21 Rx sennosides [Senna Lax] 8.6 mg PO 899,2099 #60 tab 03/20/21 03/20/21 Unknown Rx sertraline 50 mg PO DAILY #30 tab 03/20/21 03/20/21 Unknown Rx sotalol 80 mg PO BID@0900,2100 03/20/21 03/20/21 Unknown History warfarin 4 mg PO TID 03/20/21 03/20/21 Unknown History Allergies Allergy/AdvReac Type Severity Reaction Status Date / Time atorvastatin [From Lipitor] Allergy Unknown Verified 02/27/21 17:47 lisinopril Allergy Unknown Verified 02/27/21 17:47 Current Medications Current Medications Generic Name Dose Route Start Last Admin Trade Name Freq PRN Reason Stop Dose Admin Acetaminophen 650 mg 03/21/21 09:34 03/22/21 12:59 Acetaminophen 325 Mg Tablet PO 650 mg Q4H PRN Administration MILD PAIN Apixaban 5 mg 03/21/21 12:05 03/22/21 11:05 Apixaban 5 Mg Tablet PO 5 mg BID@09,2099 AGNES Administration Aripiprazole 7.5 mg 03/22/21 09:00 03/22/21 09:02 Aripiprazole 10 Mg Tablet PO 7.5 mg DAILY AGNES Administration Clopidogrel Bisulfate 75 mg 03/21/21 09:45 03/22/21 09:02 Clopidogrel 75 Mg Tablet PO 75 mg DAILY AGNES Administration Diltiazem HCl 180 mg 03/22/21 09:00 03/22/21 09:02 Diltiazem Er (24hr) 180 Mg Capsule PO 180 mg DAILY AGNES Administration Doxycycline Monohydrate 100 mg 03/22/21 09:00 03/22/21 09:01 Doxycycline 100 Mg Tablet PO 100 mg DAILY AGNES Administration Fenofibrate 145 mg 03/21/21 09:45 03/22/21 09:02 Fenofibrate 145 Mg Tablet PO 145 mg DAILY AGNES Administration Furosemide 40 mg 03/22/21 08:00 03/22/21 09:02 Furosemide 40 Mg Tablet PO 40 mg DAILY@0800 AGNES Administration Hydroxyzine Pamoate 50 mg 03/21/21 09:34 03/21/21 20:22 Hydroxyzine 25 Mg Capsule PO 50 mg Q6H PRN Administration ANXIETY Levothyroxine Sodium 150 mcg 03/21/21 09:45 03/22/21 09:03 Levothyroxine 150 Mcg Tablet PO 150 mcg DAILY AGNES Administration Lorazepam 2 mg 03/21/21 21:44 03/21/21 21:51 Lorazepam 2 Mg Tablet PO 2 mg Q4H PRN Administration ANXIETY Metformin HCl 750 mg 03/21/21 18:00 03/22/21 09:01 Metformin Xr 500 Mg Tablet PO 750 mg BID AGNES Administration Olanzapine 5 mg 03/21/21 09:34 03/21/21 20:22 Olanzapine 5 Mg Odt PO 5 mg Q4H PRN Administration Agitation/Psychosis Iderk-1-Sknd Ethyl Esters 1,000 mg 03/21/21 09:45 03/22/21 09:03 Anthony-3 Fatty Acids 1,000 Mg Capsule PO 1,000 mg DAILY AGNES Administration Pantoprazole Sodium 40 mg 03/21/21 18:00 03/22/21 09:[address] 40 Mg Tablet PO 40 mg BID AGNES Administration Phenyleph/Shark Oil/Min Oil/Petrol 1 applic 03/21/21 15:31 03/22/21 13:00 Phenyleph-Mineral Oil-Petrolat Oint 28 Gm TOPICAL 1 gm QID PRN Administration HEMORRHOIDS Potassium Chloride 10 meq 03/21/21 09:45 03/22/21 09:03 Potassium Chloride Er 10 Meq Tablet PO 10 meq DAILY AGNES Administration Senna 8.6 mg 03/21/21 21:00 03/22/21 11:05 Sennosides 8.6 Mg Tablet PO 8.6 mg 0900,2100 AGNES Administration Sertraline HCl 50 mg 03/21/21 09:45 03/22/21 09:03 Sertraline 50 Mg Tablet PO 50 mg DAILY AGNES Administration Sotalol HCl 80 mg 03/21/21 21:00 03/22/21 11:06 Sotalol 80 Mg Tablet PO 80 mg BID@0900,2100 AGNES Administration PFSH Acute PFSH: Medical History (Updated 03/22/21 @ 13:44 by Tito Marie MD) ASHD (arteriosclerotic heart disease) Atrial fibrillation CHF (congestive heart failure) COVID-19 January Dyslipidemia Essential hypertension Hx of deep venous thrombosis Mitral valve regurgitation Pulmonary hypertension Tricuspid valve regurgitation Type 2 diabetes mellitus Surgical History History of coronary artery bypass graft 2005 History of coronary artery stent placement History of total vaginal hysterectomy History of tubal ligation Status post colonoscopy Family History Other CAD (coronary artery disease) Diabetes Hypertension Social History Smoking and tobacco status: never smoked Alcohol intake: current Alcohol intake frequency: holidays/special occasions only Household members: significant other Marital status: Single Vitals/I&O/Wt Last Vital Signs Temp 97.7 F 03/22/21 06:00 Pulse 119 H 03/22/21 06:00 Resp 19 H 03/22/21 06:00 BP 125/93 03/22/21 06:00 Pulse Ox 95 03/22/21 06:00 Weight last 48 hrs Weight 104.326 kg Physical Exam Narrative: EXAM NARRATIVE: General exam demonstrates a verbose female who jumps from subject to subject HEENT: Atraumatic and normocephalic Oropharynx clear Neck is supple no lymphadenopathy or thyromegaly Cardiovascular irregular, irregular with accelerated rate Lungs are clear no wheezing or crackles Abdomen is soft, obese. No obvious organomegaly exam is deferred Extremities no cyanosis clubbing. 1-2+ edema is present lower extremities bilaterally Skin no rash Neuro no focal deficits. Somewhat upset at being in the hospital. Data Other Data: Other data: No recent laboratory. A&P Assessment and plan (1) Atrial fibrillation: When I saw her earlier this morning her heart rate was accelerated consistent with atrial fibrillation with rapid ventricular rate. She was not terribly symptomatic. I do not think it is likely that she received her calcium channel anabelle yesterday. When I called to check up on her after approximately noon, her heart rate was down in the upper 90s. Continue sotalol, Cardizem We will adjust dose of Cardizem further if needed for any persistent elevations in heart rate. Continue chronic anticoagulation with apixaban. Status: Acute Qualifiers: Atrial fibrillation type: unspecified Qualified Code(s): I48.91 - Unspecified atrial fibrillation (2) Type 2 diabetes mellitus: Change to consistent carb diet Continue Metformin Mild sliding scale insulin Status: Acute (3) Atherosclerosis of coronary artery of [place] heart without angina pectoris: Continue Plavix Continue Eliquis Continue fenofibrate. I am not for sure why she is not on a statin but it is listed in her allergies. Status: Chronic (4) Cellulitis: She has completed a course of doxycycline. On evaluation of her legs it appears she does have some venous stasis and edema. We will keep an eye on this. Status: Acute Qualifiers: Site of cellulitis: extremity Site of cellulitis of extremity: lower extremity Laterality: unspecified laterality Qualified Code(s): L03.119 - Cellulitis of unspecified part of limb (5) Essential hypertension: Controlled currently Status: Chronic Additional A&P Information Bipolar depression. Being addressed by psychiatry Thank you for this consultation. Consult Attestations Medical Necessity Statement: As per psychiatry Time Spent in Patient Care: Greater than 35 minutes Coding Level of Care Code Acute Assisted Living Assistant for Patg Fwd Diagnoses Atrial fibrillation I48.91 Atrial fibrillation type: unspecified Type 2 diabetes mellitus E11.9 Atherosclerosis of coronary artery of [place] heart without angina pectoris I25.10 Cellulitis L03.119 Site of cellulitis: extremity Site of cellulitis of extremity: lower extremity Laterality: unspecified laterality Essential hypertension I10
[2021-03-22 14:00] VITALS: BP 116/76; PULSE 99; RESP 18; TEMP 35.8; O2SAT 92
[2021-03-22 14:33] LABS: Basophils # 0.1 10^3/uL (0.0-0.1); Basophils % 0.9 %; Eosinophils # 0.1 10^3/uL (0.0-0.8); Eosinophils % 1.7 %; Hematocrit 38.4 % (37.0-47.0); Hemoglobin 11.5 g/dL (11.5-15.3); Lymphocytes # 1.5 10^3/uL (0.8-4.8); Lymphocytes % 18.2 %; Mean Corpuscular HGB Conc 29.9 g/dL (30.0-36.0); Mean Corpuscular Hemoglobin 28.4 pg (28.0-34.0); Mean Corpuscular Volume 94.8 fl (81-99); Mean Platelet Volume 10.3 fL (7.4-10.4); Monocytes # 0.8 10^3/uL (0.2-0.9); Monocytes % 9.2 %; Neutrophils # 5.65 10^3/uL (1.8-7.7); Neutrophils % 69.8 %; Nucleated Red Blood Cells % 0 %; Platelet Count 312 10^3/cmm (130-400); Red Blood Count 4.05 10^6/uL (4.1-5.3); Red Cell Distribution Width 16.6 % (12.1-15.1); White Blood Count 8.1 10^3/uL (4.0-10.0)
[2021-03-22 15:03] LABS: Anion Gap 15.4 (5-19); Blood Urea Nitrogen 15 mg/dL (8-23); Calcium 8.9 mg/dL (8.5-10.5); Carbon Dioxide 26 mmol/L (22-29); Chloride 103 mmol/L (98-107); Creatinine Clr Calc Pharmacy 98.0693; Glomerular Filtration Rate 84.8 mL/min (90-130); Glucose 93 mg/dL (65-115); Magnesium 1.9 mg/dL (1.7-2.3); Osmolality Calculated 291 mOsm/kg (285-295); Potassium 4.4 mmol/L (3.5-5.1); Sodium 140 mmol/L (136-145)
[2021-03-22 17:32] LABS: Glucose Point of Care 87 mg/dL (70-110)
[2021-03-22 20:27] LABS: Glucose Point of Care 113 mg/dL (70-110)
[2021-03-22 22:00] VITALS: BP 110/70; PULSE 90; RESP 20; TEMP 36.1; O2SAT 97
[2021-03-22] MEDS: cetylpyridinium Lozenge 1 EACH MUCOUS MEM (22:21)
[2021-03-23] MEDS: LORazepam 2 mg/mL INJ 1 mL IM (01:40)
--- NOTE | 2021-03-23 01:41 | PC.NURSE ---
prn Administered Ativan 1ml in right leg, for agitation. Pt was yelling and wouldn't calm down repeating herself over and over again. Nurses listened to her concerns, pt would just keep repeating. Pt threw her walker across the room and threw all pillows off the bed. Pt couldn't be reasoned with at this time. Dr. Landa was notified of this and gave permission to give IM Ativan. Will continue to monitor this pt.
[2021-03-23 06:00] VITALS: RESP 16
[2021-03-23 07:27] LABS: Glucose Point of Care 94 mg/dL (70-110)
[2021-03-23] MEDS: pantoprazole DR 40 mg Tablet PO (08:57)
[2021-03-23] MEDS: FUROsemide 40 mg Tablet PO (08:57)
[2021-03-23] MEDS: sotalol 80 mg Tablet PO ×2 (08:58→21:15)
[2021-03-23] MEDS: dilTIAZem ER (24HR) 180 mg Capsule PO (08:58)
[2021-03-23] MEDS: fenofibrate 145 mg Tablet PO (08:58)
[2021-03-23] MEDS: omega-3 fatty acids 1,000 mg Capsule 1000 MG PO (08:58)
[2021-03-23] MEDS: potassium chloride ER 10 mEq Tablet PO (08:58)
[2021-03-23] MEDS: metformin XR 500 MG Tablet 750 MG PO ×2 (08:58→17:33)
[2021-03-23] MEDS: sertraline 50 mg Tablet PO (08:58)
[2021-03-23] MEDS: levothyroxine 150 mcg Tablet PO (08:59)
[2021-03-23] MEDS: clopidogrel 75 mg Tablet PO (08:59)
[2021-03-23] MEDS: ARIPiprazole 10 mg Tablet 7.5 MG PO (08:59)
--- NOTE | 2021-03-23 10:47 | P.PN_ITS ---
Subjective Subjective: Interval history: Ivette still jumps from subject to subject, but may be a little bit calmer. Medications: Reviewed: Yes Vitals/I&O/Wt Last Vital Signs Temp 96.9 F L 03/22/21 22:00 Pulse 90 03/22/21 22:00 Resp 16 03/23/21 06:00 BP 110/70 03/22/21 22:00 Pulse Ox 97 03/22/21 22:00 Physical Exam Narrative: EXAM NARRATIVE: General exam quick speech, shifting subject to subject Neck is supple no lymphadenopathy or thyromegaly Cardiovascular irregular, irregular with controlled rate Lungs are clear no wheezing or crackles Abdomen is soft, obese. No obvious organomegaly Extremities no cyanosis clubbing. 1-2+ edema is present lower extremities bilaterally venous stasis changes present with some mild erythema, and xerosis Data : 03/22/21 14:20 03/22/21 14:20 A&P Assessment and plan (1) Atrial fibrillation: Currently rate is controlled Continue sotalol, Cardizem Continue chronic anticoagulation with apixaban. Status: Acute Qualifiers: Atrial fibrillation type: unspecified Qualified Code(s): I48.91 - Unspecified atrial fibrillation (2) Type 2 diabetes mellitus: Continue consistent carb diet Continue Metformin Mild sliding scale insulin, none at bedtime Status: Acute (3) Atherosclerosis of coronary artery of [place] heart without angina pectoris: Continue Plavix Continue Eliquis Continue fenofibrate. I am not for sure why she is not on a statin but it is listed in her allergies. Status: Chronic (4) Cellulitis: She has completed a course of doxycycline. On evaluation of her legs it appears she does have some venous stasis and edema. We will keep an eye on this. This does not seem any worse than on admission. Status: Acute Qualifiers: Site of cellulitis: extremity Site of cellulitis of extremity: lower extremity Laterality: unspecified laterality Qualified Code(s): L03.119 - Cellulitis of unspecified part of limb (5) Essential hypertension: Controlled currently Status: Chronic Additional A&P Information Bipolar depression. Being addressed by psychiatry Thank you for this consultation. At this point her evaluations by medicine can be every 2 to 3 days. Please call if an issue comes up that needs to be addressed sooner. Recheck electrolytes Friday to ensure stability on diuretic. 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 [employer] Fwd Diagnoses Atrial fibrillation I48.91 Atrial fibrillation type: unspecified Type 2 diabetes mellitus E11.9 Atherosclerosis of coronary artery of [place] heart without angina pectoris I25.10 Cellulitis L03.119 Site of cellulitis: extremity Site of cellulitis of extremity: lower extremity Laterality: unspecified laterality Essential hypertension I10
[2021-03-23 14:00] VITALS: BP 104/70; PULSE 89; RESP 15; TEMP 36.7; O2SAT 96
--- NOTE | 2021-03-23 15:05 | P.PN_ITS ---
Subjective NPU Subjective: Interval history: I met with the treatment team to discuss the patient's progress. They say her thinking is a little slower and she is a little less verbally impulsive today. Often over the last few days when I have walked by her, she is called my name, ask if she is going to get to talk to me, and says that I never listen to her. However, today I have walked by her several times without her calling out. Other staff report the same thing, she has a little more ability to delay her impulses. The patient says she has Covid in her ear, meaning that she is hearing noises that other people do not hear. She has multiple delusional believes about her health, and believes that the only way to solve the issues are to talk to her heart doctor. I have explained the multiple times that she is seeing the hospitalist, currently Dr. Marie. She denies unable to comprehend that he is able to provide adequate medical care for her. His note says, Ivette still jumps from subject to subject, but may be a little bit calmer. Mental Status Exam MSE Comments: I met with the patient in the hallway. Grooming is adequate and she is a little calmer than yesterday. Eye contact is fair. She continues to repeat, no one listens to me. The reality continues to be that the psychiatrist, nurses and techs spend more time listening to her than to any other patient. She has mild psychomotor agitation Speech is at a rapid rate and at a more normal volume. Still difficult to interrupt. Alert, oriented to person, place, time, situation. Attention and concentration were intact to exam. Memory is inadequate. She cannot remember conversations we had earlier today. Mood is irritable. Affect is a little more pleasant than usual. Thought process is perseverative and illogical. Thought content: She says that she hears noises in her ears but denies other auditory or visual hallucinations.she says she has no suicidal ideation or homicidal ideation. She does have delusional ideas about her health.. Insight and judgment are severely impaired. She does not understand that she has mental health issues, and cannot recognize that she does not understand her current mental and physical conditions nor her needs. She is impulsive and demanding, but her demands would not lead to meeting her actual needs. Vitals/I&O/Wt Last Vital Signs Temp 98.1 F 03/23/21 14:00 Pulse 89 03/23/21 14:00 Resp 15 03/23/21 14:00 BP 104/70 03/23/21 14:00 Pulse Ox 96 03/23/21 14:00 Data NPU : 03/22/21 14:20 03/22/21 14:20 A&P Assessment and plan (1) Bipolar affective, mixed, sev w/ psych: Status: Acute (2) Acute psychosis: Status: Acute (3) Atrial fibrillation: Status: Acute Qualifiers: Atrial fibrillation type: unspecified Qualified Code(s): I48.91 - Unspecified atrial fibrillation (4) Type 2 diabetes mellitus: Status: Acute (5) Atherosclerosis of coronary artery of [place] heart without angina pectoris: Status: Chronic (6) Cellulitis: Status: Acute Qualifiers: Site of cellulitis: extremity Site of cellulitis of extremity: lower extremity Laterality: unspecified laterality Qualified Code(s): L03.119 - Cellulitis of unspecified part of limb (7) Essential hypertension: Status: Chronic (8) COVID-19: Status: Resolved (9) Chronic anticoagulation: Status: Chronic Additional A&P Information RECOMMENDATION AND PLAN: Ivette Wheeler is a 61 carlitos old female who presented to the [facility] ED a few hours after being discharged from the neuropsychiatric unit. She continues to have psychosis and erratic behavior, and to put herself in dangerous situations with seemingly very impulsive behavior. 1. Continue current medication. We increased Abilify to 7.5 mg daily. 2. Continue every 15 minute checks for safety. 3. Encourage individual, group and milieu therapies. 4. Will follow hospitalist's recommendations on medical comorbidities, and identify any recommendations for management after discharge and if he would jeanette medical clearance for her discharge given the change in her coagulation status. 5. Need to develop an adequate plan for discharge to the community. 6. She will likely need to be placed on a 21-day hold when the 96-hour hold expires, to assure her safety and to assure that she takes needed medication. 7. She is in need of guardianship, and we will initiate that process. Involuntary Hold Information 96 Hour Hold: 96 Hour Involuntary Admission: Yes 96 Hour Hold Ending Date: 03/27/21 96 Hour Hold Ending Time: 07:23 Attestations NPU Medical Necessity Statement*: Inpatient hospitalization is medically necessary and the clinically appropriate intervention at this time. We will monitor medications and make changes as indicated. Likely length of stay 10-14 days. She will likely need to be placed on a 21-day hold when the 96-hour hold expires, to assure her safety and to assure that she takes needed medication. She is in need of guardianship, and we will initiate that process. Coding Level of Care Code Acute Faculty Neuropsychologist for g Fwd Diagnoses Bipolar affective, mixed, sev w/ psych F31.64 Acute psychosis F23 Atrial fibrillation I48.91 Atrial fibrillation type: unspecified Type 2 diabetes mellitus E11.9 Atherosclerosis of coronary artery of [place] heart without angina pectoris I25.10 Cellulitis L03.119 Site of cellulitis: extremity Site of cellulitis of extremity: lower extremity Laterality: unspecified laterality Essential hypertension I10 COVID-19 U07.1 Chronic anticoagulation Z79.01
[2021-03-23] MEDS: acetaminophen 325 mg Tablet 650 MG PO (15:58)
[2021-03-23] MEDS: apixaban 5 mg Tablet PO (21:14)
[2021-03-23] MEDS: sennosides 8.6 mg Tablet PO (21:15)
[2021-03-23 22:00] VITALS: BP 126/85; PULSE 97; RESP 17; TEMP 36.4; O2SAT 100
[2021-03-24] MEDS: LORazepam 2 mg Tablet PO ×2 (00:39→21:57)
[2021-03-24] MEDS: cetylpyridinium Lozenge 1 EACH MUCOUS MEM (00:45)
[2021-03-24 06:00] VITALS: RESP 15
[2021-03-24] MEDS: phenyleph-mineral oil-petrolat Oint 28 gm 1 APPLIC TOPICAL (06:19)
[2021-03-24] MEDS: sertraline 50 mg Tablet PO (08:46)
[2021-03-24] MEDS: metformin XR 500 MG Tablet 750 MG PO ×2 (08:46→16:56)
[2021-03-24] MEDS: ARIPiprazole 10 mg Tablet 7.5 MG PO (08:46)
[2021-03-24] MEDS: potassium chloride ER 10 mEq Tablet PO (08:46)
[2021-03-24] MEDS: fenofibrate 145 mg Tablet PO (08:46)
[2021-03-24] MEDS: FUROsemide 40 mg Tablet PO (08:46)
[2021-03-24] MEDS: levothyroxine 150 mcg Tablet PO (08:46)
[2021-03-24] MEDS: sotalol 80 mg Tablet PO ×2 (08:46→21:57)
[2021-03-24] MEDS: acetaminophen 325 mg Tablet 650 MG PO ×2 (08:47→13:57)
[2021-03-24] MEDS: clopidogrel 75 mg Tablet PO (08:47)
[2021-03-24] MEDS: dilTIAZem ER (24HR) 180 mg Capsule PO (08:47)
--- NOTE | 2021-03-24 12:25 | P.PN_ITS ---
Subjective NPU Subjective: Interval history: I met with the patient in her room with the door open. Her thinking is perseverative. Without structure from another person, she would spiral herself down into deeper and deeper despair. Much of the content of her speech is delusional: About her health conditions, about people tricking her, etc. She continues to complain of memory problems due to Covid, but then denies having memory problems. She tells me a secret from her past that she is ashamed of. She said she felt a little better after having told me. Mood is still quite depressed and affect is tearful. She says she has Covid in my ear, and says she is hearing things that others do not hear. No visual hallucinations. She denies suicidal and homicidal ideation. She denies m edication side effects. Mental Status Exam MSE Comments: I met with the patient in her room. Grooming is adequate and she is still quite stirred up, but more easily interrupted. Eye contact is fair. She often says, no one listens to me. The reality continues to be that the psychiatrist, nurses and techs spend more time listening to her than to any other patient. She has mild psychomotor agitation Speech is at a rapid rate and at a more normal volume. Alert, oriented to person, place, time, situation. Attention and concentration were intact to exam. Memory is inadequate. She cannot remember conversations we had earlier today. Mood is irritable. Affect is a little more pleasant than usual. Thought process is perseverative and illogical. Thought content: She says that she hears noises in her ears but denies other auditory or visual hallucinations.she says she has no suicidal ideation or homicidal ideation. She does have delusional ideas about her health.. Insight and judgment are severely impaired. She does not understand that she has mental health issues, and cannot recognize that she does not understand her current mental and physical conditions nor her needs. She is impulsive and demanding, but her demands would not lead to meeting her actual needs. Vitals/I&O/Wt Last Vital Signs Temp 97.6 F 03/23/21 22:00 Pulse 97 03/23/21 22:00 Resp 15 03/24/21 06:00 BP 126/85 03/23/21 22:00 Pulse Ox 100 03/23/21 22:00 Data NPU : 03/22/21 14:20 03/22/21 14:20 A&P Assessment and plan (1) Bipolar affective, mixed, sev w/ psych: Status: Acute (2) COVID-19: Status: Resolved (3) Acute psychosis: Status: Acute (4) Type 2 diabetes mellitus: Status: Acute (5) Atrial fibrillation: Status: Acute Qualifiers: Atrial fibrillation type: unspecified Qualified Code(s): I48.91 - Unspecified atrial fibrillation (6) Cellulitis: Status: Acute Qualifiers: Laterality: unspecified laterality Site of cellulitis: extremity Site of cellulitis of extremity: lower extremity Qualified Code(s): L03.119 - Cellulitis of unspecified part of limb (7) Atherosclerosis of coronary artery of [place] heart without angina pectoris: Status: Chronic (8) Chronic anticoagulation: Status: Chronic (9) Essential hypertension: Status: Chronic Additional A&P Information Ivette Wheeler is a 61 carlitos old female who presented to the [facility] ED a few hours after being discharged from the neuropsychiatric unit. She continues to have psychosis and erratic behavior, and to put herself in dangerous situations with seemingly very impulsive behavior. RECOMMENDATION AND PLAN: 1. Continue current medication. We increased Abilify to 7.5 mg daily. It appears to be helping and she has less sedation and we we initially increased it. We may go to 10 mg daily if she tolerates the 7.5 okay. 2. Continue every 15 minute checks for safety. 3. Encourage individual, group and milieu therapies. 4. Will follow hospitalist's recommendations on medical comorbidities, and identify any recommendations for management after discharge and if he would jeanette medical clearance for her discharge given the change in her coagulation status. 5. Need to develop an adequate plan for discharge to the community. 6. She will likely need to be placed on a 21-day hold when the 96-hour hold expires, to assure her safety and to assure that she takes needed medication. 7. She is in need of guardianship, and we will initiate that process. Paperwork was faxed to the court on 03/23/2021. Involuntary Hold Information 96 Hour Hold: 96 Hour Involuntary Admission: Yes 96 Hour Hold Ending Date: 03/27/21 96 Hour Hold Ending Time: 07:23 Attestations NPU Medical Necessity Statement*: Inpatient hospitalization is medically necessary and the clinically appropriate intervention at this time. We will monitor medications and make changes as indicated. Likely length of stay 10-14 days. She will likely need to be placed on a 21-day hold when the 96-hour hold expires, to assure her safety and to assure that she takes needed medication. She is in need of guardianship, and we will initiate that process. Coding Level of Care Code Acute Bridge Rigger for g Fwd Diagnoses Bipolar affective, mixed, sev w/ psych F31.64 COVID-19 U07.1 Acute psychosis F23 Type 2 diabetes mellitus E11.9 Atrial fibrillation I48.91 Atrial fibrillation type: unspecified Cellulitis L03.119 Laterality: unspecified laterality Site of cellulitis: extremity Site of cellulitis of extremity: lower extremity Atherosclerosis of coronary artery of [place] heart without angina pectoris I25.10 Chronic anticoagulation Z79.01 Essential hypertension I10
[2021-03-24 14:00] VITALS: BP 68/43; PULSE 82; RESP 18; TEMP 36.1; O2SAT 95
--- NOTE | 2021-03-24 15:05 | PC.NURSE ---
NOTIFIED NURSE ABOUT LOW BLOOD PRESSURE
[2021-03-24] MEDS: sennosides 8.6 mg Tablet PO (21:57)
[2021-03-24] MEDS: apixaban 5 mg Tablet PO (21:57)
[2021-03-24 22:00] VITALS: BP 130/87; PULSE 117; RESP 19; TEMP 36.7; O2SAT 98
--- NOTE | 2021-03-24 22:00 | PC.NURSE ---
pt noted with increased anxiety and getting mad at staff. Ativan 2mg po given with HS meds.
--- NOTE | 2021-03-24 23:30 | PC.NURSE ---
pt resting quietly
[2021-03-25 06:00] VITALS: BP 107/63; PULSE 74; RESP 18; TEMP 36.7; O2SAT 97
[2021-03-25 08:06] LABS: Glucose Point of Care 97 mg/dL (70-110)
[2021-03-25 08:06] LABS: Glucose Point of Care 119 mg/dL (70-110)
[2021-03-25 08:06] LABS: Glucose Point of Care 203 mg/dL (70-110)
[2021-03-25 08:06] LABS: Glucose Point of Care 106 mg/dL (70-110)
[2021-03-25 08:06] LABS: Glucose Point of Care 116 mg/dL (70-110)
[2021-03-25 08:06] LABS: Glucose Point of Care 115 mg/dL (70-110)
[2021-03-25 08:06] LABS: Glucose Point of Care 101 mg/dL (70-110)
[2021-03-25 08:06] LABS: Glucose Point of Care 99 mg/dL (70-110)
[2021-03-25] MEDS: sertraline 50 mg Tablet PO (09:24)
[2021-03-25] MEDS: clopidogrel 75 mg Tablet PO (09:24)
[2021-03-25] MEDS: FUROsemide 40 mg Tablet PO (09:24)
[2021-03-25] MEDS: levothyroxine 150 mcg Tablet PO (09:24)
[2021-03-25] MEDS: potassium chloride ER 10 mEq Tablet PO (09:24)
[2021-03-25] MEDS: pantoprazole DR 40 mg Tablet PO ×2 (09:24→18:11)
[2021-03-25] MEDS: fenofibrate 145 mg Tablet PO (09:24)
[2021-03-25] MEDS: omega-3 fatty acids 1,000 mg Capsule 1000 MG PO (09:24)
[2021-03-25] MEDS: dilTIAZem ER (24HR) 180 mg Capsule PO (09:24)
[2021-03-25] MEDS: ARIPiprazole 10 mg Tablet 7.5 MG PO (09:24)
[2021-03-25] MEDS: sotalol 80 mg Tablet PO ×2 (09:24→21:22)
[2021-03-25] MEDS: apixaban 5 mg Tablet PO ×2 (09:24→21:22)
[2021-03-25 11:30] LABS: Glucose Point of Care 106 mg/dL (70-110)
[2021-03-25] MEDS: metformin XR 500 MG Tablet 750 MG PO ×2 (11:43→18:11)
[2021-03-25] MEDS: acetaminophen 325 mg Tablet 650 MG PO ×2 (12:07→22:16)
--- NOTE | 2021-03-25 12:48 | P.PN_ITS ---
Subjective NPU Subjective: Interval history: The patient continues to have delusional ideas that her daughter put her in the hospital out of spite. She does not seem to recognize that she has told me the story dozens of times. She also perseverates that people are ignoring her and do not letting her talk. She tells me that God let me sleep last night. She tells me that she is going to tell the district court judge that she does not need to be here, and he will let her out, because I do not lie. She says her mood is very sad, but she denies suicidal or homicidal ideation. She says that she still has Covid ear, but she does not hear voices today. She does put her finger in her ear for some unexplained reason. She says that it feels weird and it makes her sound weird. She denies medication side effects. Mental Status Exam MSE Comments: I met with the patient in her room with the door open. Grooming is adequate. Eye contact is fair. She often says, no one listens to me. The reality continues to be that the psychiatrist, nurses and techs spend more time listening to her than to any other patient. She has mild psychomotor agitation Speech is at a rapid rate and at a more normal volume. She is interruptible. Alert, oriented to person, place, time, situation. Attention and concentration were intact to exam. Memory is inadequate. She cannot remember conversations we had earlier today or the ones we have had multiple times another days. Mood is irritable. Affect is irritable. Thought process is perseverative and illogical. Thought content: She denies auditory or visual hallucinations.she denies suicidal ideation and homicidal ideation. She continues to have delusional nancie as about her health. Insight and judgment are severely impaired. She does not understand that she h as mental health issues, and cannot recognize that she does not understand her current mental and physical conditions nor her needs. She is impulsive and demanding, but her demands would not lead to meeting her actual needs. Vitals/I&O/Wt Last Vital Signs Temp 98.1 F 03/25/21 06:00 Pulse 74 03/25/21 06:00 Resp 18 03/25/21 06:00 BP 107/63 03/25/21 06:00 Pulse Ox 97 03/25/21 06:00 Weight last 48 hrs Weight 104.326 kg Data NPU : 03/22/21 14:20 03/22/21 14:20 A&P Assessment and plan (1) Bipolar affective, mixed, sev w/ psych: Status: Acute (2) COVID-19: Status: Resolved (3) Acute psychosis: Status: Acute (4) Type 2 diabetes mellitus: Status: Acute (5) Atrial fibrillation: Status: Acute Qualifiers: Atrial fibrillation type: unspecified Qualified Code(s): I48.91 - Unspecified atrial fibrillation (6) Cellulitis: Status: Acute Qualifiers: Site of cellulitis: extremity Site of cellulitis of extremity: lower extremity Laterality: unspecified laterality Qualified Code(s): L03.119 - Cellulitis of unspecified part of limb (7) Atherosclerosis of coronary artery of [place] heart without angina pectoris: Status: Chronic (8) Chronic anticoagulation: Status: Chronic (9) Essential hypertension: Status: Chronic Additional A&P Information Ivette Wheeler is a 61 carlitos old female who presented to the [facility] ED a few hours after being discharged from the neuropsychiatric unit. She continues to have psychosis and erratic behavior, and to put herself in dangerous situations with seemingly very impulsive behavior. RECOMMENDATION AND PLAN: 1. Continue current medication. We increased Abilify to 7.5 mg daily. It appears to be helping and she has less sedation and we we initially increased it. We may go to 10 mg daily if she tolerates the 7.5 okay. 2. Continue every 15 minute checks for safety. 3. Encourage individual, group and milieu therapies. 4. Will follow hospitalist's recommendations on medical comorbidities, and identify any recommendations for management after discharge and if he would jeanette medical clearance for her discharge given the change in her coagulation status. 5. Need to develop an adequate plan for discharge to the community. 6. She will likely need to be placed on a 21-day hold when the 96-hour hold expires, to assure her safety and to assure that she takes needed medication. 7. She is in need of guardianship, and we will initiate that process. Paperwork was faxed to the court on 03/23/2021. Involuntary Hold Information 96 Hour Hold: 96 Hour Involuntary Admission: Yes 96 Hour Hold Ending Date: 03/27/21 96 Hour Hold Ending Time: 07:23 Attestations NPU Medical Necessity Statement*: Inpatient hospitalization is medically necessary and the clinically appropriate intervention at this time. We will monitor medications and make changes as indicated. Likely length of stay 10-14 days. She will likely need to be placed on a 21-day hold when the 96-hour hold expires, to assure her safety and to assure that she takes needed medication. She is in need of guardianship, and we faxed guardian papers to the court on 03/23/2021 Coding Level of Care Code Acute Oil House Attendant for g Fwd Diagnoses Bipolar affective, mixed, sev w/ psych F31.64 COVID-19 U07.1 Acute psychosis F23 Type 2 diabetes mellitus E11.9 Atrial fibrillation I48.91 Atrial fibrillation type: unspecified Cellulitis L03.119 Site of cellulitis: extremity Site of cellulitis of extremity: lower extremity Laterality: unspecified laterality Atherosclerosis of coronary artery of [place] heart without angina pectoris I25.10 Chronic anticoagulation Z79.01 Essential hypertension I10
[2021-03-25 14:00] VITALS: BP 116/83; PULSE 109; RESP 20; TEMP 35.9; O2SAT 97
--- NOTE | 2021-03-25 14:52 | PM.PN ---
Subjective Subjective: Interval history: Patient was seen this morning, she continues to have bilateral lower extremity edema and swelling and erythema, but improved she tells me, she continues to complain that she wants Dr. Ewing to see her here in the hospital, that we are holding her here against her will, that her daughter is holding her here, she says that she wants Dr. Ewing to see her, because he normally comes around and sees her when she is in the hospital, she is wondering why he is not coming around to see her in the hospital Medications: Reviewed: Yes Vitals/I&O/Wt Last Vital Signs Temp 98.1 F 03/25/21 06:00 Pulse 74 03/25/21 06:00 Resp 18 03/25/21 06:00 BP 107/63 03/25/21 06:00 Pulse Ox 97 03/25/21 06:00 Weight last 48 hrs Weight 104.326 kg Physical Exam Const: COMMON NORMALS: no acute distress and patient oriented x3 Resp: COMMON NORMALS: normal respiratory effort, No retractions, No use of accessory muscles and clear to auscultation bilaterally AUSCULTATION: clear to auscultation bilaterally Cardio: COMMON NORMALS: regular rate, regular rhythm, S1 normal heart sound present and S2 normal heart sound present RATE: regular rate RHYTHM: regular rhythm HEART SOUNDS: S1 normal heart sound present and S2 normal heart sound present GI: COMMON NORMALS: Normal to inspection, nondistended, normoactive bowel sounds present, Soft to palpation, non-tender and No hepatosplenomegaly present PALPATION: Yes Soft to palpation and Yes No hepatosplenomegaly present Extremity: NARRATIVE EXTREMITY EXAM: Bilateral lower extremity, 1+ edema, erythema extending from the shins down to the forefoot Neuro: COMMON NORMALS: patient oriented x3 Psych: COMMON NORMALS: mental status grossly normal Data : 03/22/21 14:20 03/22/21 14:20 A&P Assessment and plan (1) Atrial fibrillation: Currently rate is controlled Continue sotalol, Cardizem Continue chronic anticoagulation with apixaban. Status: Acute Qualifiers: Atrial fibrillation type: unspecified Qualified Code(s): I48.91 - Unspecified atrial fibrillation (2) Type 2 diabetes mellitus: Continue consistent carb diet Continue Metformin Mild sliding scale insulin, none at bedtime Status: Acute (3) Atherosclerosis of coronary artery of [place] heart without angina pectoris: Continue Plavix Continue Eliquis Continue fenofibrate. I am not for sure why she is not on a statin but it is listed in her allergies. Status: Chronic (4) Cellulitis: We will try a course of doxycycline Augmentin Status: Acute Qualifiers: Site of cellulitis: extremity Site of cellulitis of extremity: lower extremity Laterality: unspecified laterality Qualified Code(s): L03.119 - Cellulitis of unspecified part of limb (5) Essential hypertension: Controlled currently Status: Chronic (6) Bilateral lower extremity edema: -Awaiting morning electrolyte panel -If reasonable we will increase Lasix to 40 twice daily Status: Acute Additional A&P Information Bipolar depression. Being addressed by psychiatry Thank you for this consultation. At this point her evaluations by medicine can be every 2 to 3 days. Please call if an issue comes up that needs to be addressed sooner. Recheck electrolytes Friday to ensure stability on diuretic. Attestations Medical Necessity Statement*: Consult for bilateral extreme edema, cellulitis Coding Level of Care Code Acute Ultrasound Technologist for [facility] [place] Diagnoses Atrial fibrillation I48.91 Atrial fibrillation type: unspecified Type 2 diabetes mellitus E11.9 Atherosclerosis of coronary artery of [place] heart without angina pectoris I25.10 Cellulitis L03.119 Site of cellulitis: extremity Site of cellulitis of extremity: lower extremity Laterality: unspecified laterality Essential hypertension I10 Bilateral lower extremity edema R60.0
[2021-03-25 16:37] LABS: Glucose Point of Care 110 mg/dL (70-110)
[2021-03-25 17:11] LABS: Alanine Aminotransferase 9 U/L (0-33); Albumin Level 3.5 g/dL (3.5-5.2); Alkaline Phosphatase 47 IU/L (35-105); Anion Gap 13.2 (5-19); Aspartate Amino Transferase 19 U/L (0-32); Blood Urea Nitrogen 16 mg/dL (8-23); Calcium 9.2 mg/dL (8.5-10.5); Carbon Dioxide 27 mmol/L (22-29); Chloride 100 mmol/L (98-107); Creatinine Clr Calc Pharmacy 98.0693; Globulin 3.1 g/dL (1.3-4.6); Glomerular Filtration Rate 84.8 mL/min (90-130); Glucose 93 mg/dL (65-115); Osmolality Calculated 283 mOsm/kg (285-295); Potassium 4.2 mmol/L (3.5-5.1); Sodium 136 mmol/L (136-145); Total Bilirubin 0.6 mg/dL (0.15-1.2); Total Protein 6.6 g/dL (6.6-8.7)
[2021-03-25] MEDS: amoxicillin-clav 875-125 mg Tablet 1 TAB PO (18:11)
[2021-03-25] MEDS: doxycycline 100 mg Tablet PO (18:12)
[2021-03-25 20:22] LABS: Glucose Point of Care 110 mg/dL (70-110)
[2021-03-25 21:01] VITALS: BP 131/89; PULSE 102; RESP 18; TEMP 35.9; O2SAT 95
[2021-03-25] MEDS: LORazepam 2 mg Tablet PO (21:22)
[2021-03-25] MEDS: cetylpyridinium Lozenge 1 EACH MUCOUS MEM (22:08)
[2021-03-25] MEDS: diphenhydrAMINE 50 mg Capsule PO (22:08)
--- NOTE | 2021-03-25 22:37 | PC.NURSE ---
pt noted with increased anxiety, putting call emergency light and room call light on wanting a staff member to watch her all the time. states i need a watcher to pay attention to me . Ativan 2mg po given.
[2021-03-26] MEDS: acetaminophen 325 mg Tablet 650 MG PO ×3 (03:25→14:55)
[2021-03-26 06:00] VITALS: BP 125/87; PULSE 96; RESP 16; TEMP 36.2; O2SAT 95
[2021-03-26 06:52] LABS: Glucose Point of Care 82 mg/dL (70-110)
[2021-03-26 08:33] LABS: Alanine Aminotransferase 9 U/L (0-33); Albumin Level 3.4 g/dL (3.5-5.2); Alkaline Phosphatase 45 IU/L (35-105); Anion Gap 16.1 (5-19); Aspartate Amino Transferase 17 U/L (0-32); Blood Urea Nitrogen 12 mg/dL (8-23); Calcium 9.1 mg/dL (8.5-10.5); Carbon Dioxide 25 mmol/L (22-29); Chloride 101 mmol/L (98-107); Globulin 2.5 g/dL (1.3-4.6); Glomerular Filtration Rate 101.3 mL/min (90-130); Glucose 89 mg/dL (65-115); Osmolality Calculated 285 mOsm/kg (285-295); Potassium 4.1 mmol/L (3.5-5.1); Sodium 138 mmol/L (136-145); Total Bilirubin 0.7 mg/dL (0.15-1.2); Total Protein 5.9 g/dL (6.6-8.7)
[2021-03-26] MEDS: metformin XR 500 MG Tablet 750 MG PO ×2 (09:19→17:45)
[2021-03-26] MEDS: dilTIAZem ER (24HR) 180 mg Capsule PO (09:20)
[2021-03-26] MEDS: sertraline 50 mg Tablet PO (09:20)
[2021-03-26] MEDS: pantoprazole DR 40 mg Tablet PO (09:20)
[2021-03-26] MEDS: ARIPiprazole 10 mg Tablet PO (09:20)
[2021-03-26] MEDS: amoxicillin-clav 875-125 mg Tablet 1 TAB PO ×2 (09:20→17:45)
[2021-03-26] MEDS: omega-3 fatty acids 1,000 mg Capsule 1000 MG PO (09:20)
[2021-03-26] MEDS: fenofibrate 145 mg Tablet PO (09:21)
[2021-03-26] MEDS: clopidogrel 75 mg Tablet PO (09:21)
[2021-03-26] MEDS: potassium chloride ER 10 mEq Tablet PO ×2 (09:21→21:38)
[2021-03-26] MEDS: doxycycline 100 mg Tablet PO ×2 (09:21→17:46)
[2021-03-26] MEDS: levothyroxine 150 mcg Tablet PO (09:21)
[2021-03-26] MEDS: FUROsemide 40 mg Tablet PO ×2 (09:22→21:38)
[2021-03-26] MEDS: apixaban 5 mg Tablet PO ×2 (09:24→21:41)
[2021-03-26] MEDS: sotalol 80 mg Tablet PO ×2 (09:24→21:38)
[2021-03-26] MEDS: diphenhydrAMINE 50 mg Capsule PO ×2 (10:01→14:55)
[2021-03-26 12:20] LABS: Glucose Point of Care 126 mg/dL (70-110)
[2021-03-26 14:00] VITALS: BP 138/91; PULSE 106; RESP 20; TEMP 36.6; O2SAT 95
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
[2021-03-26 18:02] LABS: Glucose Point of Care 123 mg/dL (70-110)
[2021-03-26 20:57] VITALS: BP 106/75; PULSE 116; RESP 22; TEMP 36.4; O2SAT 95
[2021-03-26] MEDS: LORazepam 2 mg Tablet PO (21:39)
[2021-03-26] MEDS: hydrocortisone 2.5% cream 28 gm 1 APPLIC TOPICAL (22:07)
[2021-03-27] MEDS: diphenhydrAMINE 50 mg Capsule PO ×3 (00:27→19:54)
[2021-03-27 06:00] VITALS: BP 131/93; PULSE 117; RESP 20; TEMP 36.6; O2SAT 95
[2021-03-27 06:58] LABS: Glucose Point of Care 83 mg/dL (70-110)
[2021-03-27] MEDS: sotalol 80 mg Tablet PO ×2 (10:35→19:55)
[2021-03-27] MEDS: pantoprazole DR 40 mg Tablet PO ×2 (10:36→17:41)
[2021-03-27] MEDS: levothyroxine 150 mcg Tablet PO (10:36)
[2021-03-27] MEDS: apixaban 5 mg Tablet PO ×2 (10:36→19:55)
[2021-03-27] MEDS: metformin XR 500 MG Tablet 750 MG PO ×2 (10:36→17:40)
[2021-03-27] MEDS: amoxicillin-clav 875-125 mg Tablet 1 TAB PO ×2 (10:36→17:41)
[2021-03-27] MEDS: FUROsemide 40 mg Tablet PO (10:36)
[2021-03-27] MEDS: clopidogrel 75 mg Tablet PO (10:37)
[2021-03-27] MEDS: dilTIAZem ER (24HR) 180 mg Capsule PO (10:37)
[2021-03-27] MEDS: fenofibrate 145 mg Tablet PO (10:37)
[2021-03-27] MEDS: doxycycline 100 mg Tablet PO ×2 (10:37→17:41)
[2021-03-27] MEDS: ARIPiprazole 10 mg Tablet PO (10:37)
[2021-03-27] MEDS: potassium chloride ER 10 mEq Tablet PO ×2 (10:37→19:54)
[2021-03-27] MEDS: sertraline 50 mg Tablet PO (10:38)
[2021-03-27] MEDS: acetaminophen 325 mg Tablet 650 MG PO ×2 (12:17→19:55)
[2021-03-27 13:07] LABS: Alanine Aminotransferase 9 U/L (0-33); Albumin Level 3.4 g/dL (3.5-5.2); Alkaline Phosphatase 50 IU/L (35-105); Anion Gap 20.8 (5-19); Aspartate Amino Transferase 19 U/L (0-32); Blood Urea Nitrogen 11 mg/dL (8-23); Calcium 9.3 mg/dL (8.5-10.5); Carbon Dioxide 22 mmol/L (22-29); Chloride 96 mmol/L (98-107); Globulin 3.4 g/dL (1.3-4.6); Glomerular Filtration Rate 101.3 mL/min (90-130); Glucose 98 mg/dL (65-115); Osmolality Calculated 279 mOsm/kg (285-295); Potassium 3.8 mmol/L (3.5-5.1); Sodium 135 mmol/L (136-145); Total Bilirubin 0.7 mg/dL (0.15-1.2); Total Protein 6.8 g/dL (6.6-8.7)
[2021-03-27 14:00] VITALS: BP 121/81; PULSE 105; RESP 19; TEMP 36.5; O2SAT 93
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
[2021-03-27] MEDS: LORazepam 2 mg Tablet PO (19:54)
[2021-03-27] MEDS: cetylpyridinium Lozenge 1 EACH MUCOUS MEM (19:54)
[2021-03-27] MEDS: trazodone 50 mg Tablet PO (19:54)
[2021-03-27] MEDS: hydrocortisone 2.5% cream 28 gm 1 APPLIC TOPICAL (19:56)
[2021-03-27 21:31] LABS: Glucose Point of Care 115 mg/dL (70-110)
[2021-03-27 22:00] VITALS: BP 125/89; PULSE 106; RESP 18; TEMP 36.3; O2SAT 95
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
--- NOTE | 2021-03-27 23:14 | PC.NURSE ---
resting Pt resting at this time, no sign of emotional distress at this time, snoring in her bed at this time.
[2021-03-28 06:00] VITALS: BP 123/86; PULSE 77; RESP 18; TEMP 36.2; O2SAT 94
[2021-03-28 07:09] LABS: Glucose Point of Care 96 mg/dL (70-110)
[2021-03-28] MEDS: levothyroxine 150 mcg Tablet PO (09:07)
[2021-03-28] MEDS: FUROsemide 40 mg Tablet PO (09:07)
[2021-03-28] MEDS: omega-3 fatty acids 1,000 mg Capsule 1000 MG PO (09:07)
[2021-03-28] MEDS: potassium chloride ER 10 mEq Tablet PO ×2 (09:07→20:08)
[2021-03-28] MEDS: apixaban 5 mg Tablet PO ×2 (09:07→20:08)
[2021-03-28] MEDS: sotalol 80 mg Tablet PO ×2 (09:07→20:08)
[2021-03-28] MEDS: fenofibrate 145 mg Tablet PO (09:07)
[2021-03-28] MEDS: clopidogrel 75 mg Tablet PO (09:07)
[2021-03-28] MEDS: dilTIAZem ER (24HR) 180 mg Capsule PO (09:07)
[2021-03-28] MEDS: doxycycline 100 mg Tablet PO ×2 (09:08→20:09)
[2021-03-28] MEDS: metformin XR 500 MG Tablet 750 MG PO ×2 (09:08→16:37)
[2021-03-28] MEDS: amoxicillin-clav 875-125 mg Tablet 1 TAB PO ×2 (09:08→20:07)
[2021-03-28] MEDS: acetaminophen 325 mg Tablet 650 MG PO ×2 (09:08→15:57)
--- NOTE | 2021-03-28 09:09 | PC.NURSE ---
refused scheduled Senna, abilify, Protonix, and Zoloft
[2021-03-28 11:27] LABS: Glucose Point of Care 101 mg/dL (70-110)
[2021-03-28 13:13] LABS: Alanine Aminotransferase 10 U/L (0-33); Albumin Level 3.6 g/dL (3.5-5.2); Alkaline Phosphatase 53 IU/L (35-105); Blood Urea Nitrogen 10 mg/dL (8-23); Calcium 9.4 mg/dL (8.5-10.5); Carbon Dioxide 27 mmol/L (22-29); Chloride 97 mmol/L (98-107); Creatinine Clr Calc Pharmacy 98.0693; Globulin 3.4 g/dL (1.3-4.6); Glomerular Filtration Rate 84.8 mL/min (90-130); Glucose 85 mg/dL (65-115); Osmolality Calculated 284 mOsm/kg (285-295); Sodium 138 mmol/L (136-145); Total Bilirubin 0.7 mg/dL (0.15-1.2)
[2021-03-28 13:15] LABS: Anion Gap 18.1 (5-19)
[2021-03-28 13:16] LABS: Aspartate Amino Transferase 21 U/L (0-32); Potassium 4.1 mmol/L (3.5-5.1)
[2021-03-28 14:00] VITALS: BP 73/44; PULSE 90; RESP 18; TEMP 36.3; O2SAT 95
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
[2021-03-28 16:49] LABS: Glucose Point of Care 81 mg/dL (70-110)
[2021-03-28 19:59] VITALS: BP 126/81; PULSE 107; RESP 26; TEMP 36.6; O2SAT 95
[2021-03-28] MEDS: cetylpyridinium Lozenge 1 EACH MUCOUS MEM (20:07)
[2021-03-28] MEDS: hydrocortisone 2.5% cream 28 gm 1 APPLIC TOPICAL (20:07)
[2021-03-28] MEDS: ibuprofen 800 mg tablet PO (20:08)
[2021-03-28] MEDS: LORazepam 2 mg Tablet PO (20:08)
[2021-03-28] MEDS: trazodone 50 mg Tablet PO (20:08)
[2021-03-28] MEDS: diphenhydrAMINE 50 mg Capsule PO (20:09)
[2021-03-28] MEDS: pantoprazole DR 40 mg Tablet PO (20:09)
--- NOTE | 2021-03-29 03:33 | PC.NURSE ---
PRN 20:08 administered Benadryl 50mg, motrin 800mg, Ativan 2mg, trazadone 50mg, for sleep and agitation. Will continue to monitor pt.
[2021-03-29] MEDS: diphenhydrAMINE cream 30 gm 1 APPLIC TOPICAL (04:02)
[2021-03-29 06:00] VITALS: BP 131/87; PULSE 105; RESP 20; TEMP 36.6; O2SAT 95
[2021-03-29] MEDS: ibuprofen 800 mg tablet PO ×2 (06:05→13:53)
[2021-03-29 06:39] LABS: Glucose Point of Care 85 mg/dL (70-110)
[2021-03-29] MEDS: metformin XR 500 MG Tablet 750 MG PO ×2 (08:40→16:40)
[2021-03-29] MEDS: fenofibrate 145 mg Tablet PO (08:40)
[2021-03-29] MEDS: levothyroxine 150 mcg Tablet PO (08:40)
[2021-03-29] MEDS: sotalol 80 mg Tablet PO ×2 (08:41→21:28)
[2021-03-29] MEDS: potassium chloride ER 10 mEq Tablet PO ×2 (08:41→21:29)
[2021-03-29] MEDS: FUROsemide 40 mg Tablet PO (08:41)
[2021-03-29] MEDS: dilTIAZem ER (24HR) 180 mg Capsule PO (08:41)
[2021-03-29] MEDS: amoxicillin-clav 875-125 mg Tablet 1 TAB PO ×2 (08:42→21:29)
[2021-03-29] MEDS: apixaban 5 mg Tablet PO ×2 (08:42→21:29)
[2021-03-29] MEDS: clopidogrel 75 mg Tablet PO (08:43)
[2021-03-29] MEDS: omega-3 fatty acids 1,000 mg Capsule 1000 MG PO (08:43)
[2021-03-29] MEDS: pantoprazole DR 40 mg Tablet PO ×2 (08:43→21:29)
[2021-03-29] MEDS: doxycycline 100 mg Tablet PO ×2 (08:43→21:28)
--- NOTE | 2021-03-29 08:44 | PC.NURSE ---
refused scheduled keli Rojas senna
[2021-03-29 11:36] LABS: Glucose Point of Care 112 mg/dL (70-110)
[2021-03-29 13:54] VITALS: BP 113/74; PULSE 100; RESP 18; TEMP 36.2; O2SAT 96
[2021-03-29 16:20] LABS: Glucose Point of Care 101 mg/dL (70-110)
--- NOTE | 2021-03-29 17:25 | P.PN_ITS ---
Subjective NPU Subjective: Interval history: Deepali presents today seeming a little less pressured. We discussed the plan to continue with Dr. Landa's plan to increase the Abilify a little at a time to avoid the side effect she has expressed concern with. She began discussing the time she had been here and saw nature we took time to be clear about her current circumstance of the guardianship considerations. Otherwise she reports that she is feeling better and that her legs are healing but she continued to discuss her normal mantra about her daughter forcing her to be here, her son committing suicide, her needing to be able to have independence etc. Mental Status Exam MSE Comments: This is an obese versus morbidly obese white female in hospital scrubs with adequate grooming and appropriate eye contact. No abnormal movements except for mild psychomotor retardation. More cooperative with exam in mild distress. Speech was more normal rate and volume and less pressured. Mood described as I am good, affect calmer. Thought process organized. Thought content: Patient denied suicidal or homicidal ideation, there are no delusions reported, but concerns for delusional thinking existed still surrounding her son, she denied auditory or visual hallucinations. Attention and concentration appeared intact and memory seemed questionable but none were formally tested. She is alert and oriented x3. Insight and judgment appear limited, but improving impulse control appears limited. Vitals/I&O/Wt Last Vital Signs Temp 97.2 F L 03/29/21 13:54 Pulse 100 03/29/21 13:54 Resp 18 03/29/21 13:54 BP 113/74 03/29/21 13:54 Pulse Ox 96 03/29/21 13:54 Data NPU : 03/22/21 14:20 03/28/21 11:35 A&P Additional A&P Information (1) Bilateral lower extremity edema: (2) Bipolar affective, mixed, sev w/ psych: (3) COVID-19: (4) Acute psychosis: (5) Type 2 diabetes mellitus: (6) Atrial fibrillation: (7) Cellulitis: (8) Atherosclerosis of coronary artery of [place] heart without angina pectoris: (9) Chronic anticoagulation: (10) Essential hypertension: Additional A&P Information Ivette Wheeler is a 61 carlitos old female who presented to the [facility] ED a few hours after being discharged from the neuropsychiatric unit. She continues to have psychosis and erratic behavior, and to put herself in dangerous situations with seemingly very impulsive behavior. RECOMMENDATION AND PLAN: 1. Continue current medication. We will continue Abilify at 12 mg daily today. 2. Continue every 15 minute checks for safety. 3. Encourage individual, group and milieu therapies. 4. Will follow hospitalist's recommendations on medical comorbidities. 5. Need to develop an adequate plan for discharge to the community. 6. She is on a guardianship hold. Involuntary Hold Information 96 Hour Hold: 96 Hour Involuntary Admission: Yes 96 Hour Hold Ending Date: 03/27/21 96 Hour Hold Ending Time: 07:23 Attestations NPU Medical Necessity Statement*: Inpatient hospitalization is medically necessary and the clinically appropriate intervention at this time. We will monitor medications and make changes as indicated. Likely length of stay 10-14 days. She is in need of guardianship and we will wait for her hearing date. Coding Level of Care Code Acute Sandal Parts Assembler for Jimmie Arias
[2021-03-29 19:38] LABS: Glucose Point of Care 147 mg/dL (70-110)
[2021-03-29] MEDS: acetaminophen 325 mg Tablet 650 MG PO (19:55)
[2021-03-29 21:39] VITALS: BP 106/69; PULSE 110; RESP 18; TEMP 36.3; O2SAT 95
[2021-03-29] MEDS: LORazepam 2 mg Tablet PO (22:00)
[2021-03-30] MEDS: diphenhydrAMINE 50 mg Capsule PO (03:55)
[2021-03-30] MEDS: LORazepam 2 mg Tablet PO ×2 (03:55→19:49)
[2021-03-30] MEDS: diphenhydrAMINE cream 30 gm 1 APPLIC TOPICAL (04:03)
[2021-03-30 06:00] VITALS: BP 106/69; PULSE 101; RESP 18; TEMP 36.3; O2SAT 95
--- NOTE | 2021-03-30 07:23 | PM.NPN ---
Subjective NPU Subjective: Interval history: Patient presents today reporting that she has been refusing medication feeling like she did not really needed and reportedly it made her drowsy. We discussed the risk benefits and alternatives of changing it to nightly dosing and she understood agreed to proceed as documented in this note. She appears to understand the guardianship process and assures this physician underwriter that she is going to be good so that she can be discharged without guardianship. Mental Status Exam MSE Comments: This is an obese versus morbidly obese white female in hospital scrubs with adequate grooming and appropriate eye contact. No abnormal movements except for mild psychomotor retardation. More cooperative with exam in no acute distress. Speech was more normal rate and volume. Mood described as pretty good, and will be good, affect calmer. Thought process organized. Thought content: Patient denied suicidal or homicidal ideation, there are no delusions reported or noted, she denied auditory or visual hallucinations. Attention and concentration appeared intact and memory seems more reliable but none were formally tested. She is alert and oriented x3. Insight and judgment appear limited, but improving impulse control appears limited. Vitals/I&O/Wt Last Vital Signs Temp 97.4 F L 03/30/21 06:00 Pulse 101 H 03/30/21 06:00 Resp 18 03/30/21 06:00 BP 106/69 03/30/21 06:00 Pulse Ox 95 03/30/21 06:00 Data NPU : 03/22/21 14:20 03/28/21 11:35 A&P Additional A&P Information (1) Bilateral lower extremity edema: (2) Bipolar affective, mixed, sev w/ psych: (3) COVID-19: (4) Acute psychosis: (5) Type 2 diabetes mellitus: (6) Atrial fibrillation: (7) Cellulitis: (8) Atherosclerosis of coronary artery of [place] heart without angina pectoris: (9) Chronic anticoagulation: (10) Essential hypertension: Additional A&P Information Ivette Wheeler is a 61 carlitos old female who presented to the [facility] ED a few hours after being discharged from the neuropsychiatric unit. She continues to have psychosis and erratic behavior, and to put herself in dangerous situations with seemingly very impulsive behavior. RECOMMENDATION AND PLAN: 1. Continue current medication. She had refused her Abilify but agreed to changing it to 12 mg p.o. nightly. 2. Continue every 15 minute checks for safety. 3. Encourage individual, group and milieu therapies. 4. Will follow hospitalist's recommendations on medical comorbidities. 5. Need to develop an adequate plan for discharge to the community. 6. She is on a guardianship hold. Involuntary Hold Information 96 Hour Hold: 96 Hour Involuntary Admission: Yes 96 Hour Hold Ending Date: 03/27/21 96 Hour Hold Ending Time: 07:23 Attestations NPU Medical Necessity Statement*: Inpatient hospitalization is medically necessary and the clinically appropriate intervention at this time. We will monitor medications and make changes as indicated. Likely length of stay 10-14 days. She is in need of guardianship and we will wait for her hearing date. Coding Level of Care Code Acute Well Puller for Jimmie Arias
[2021-03-30] MEDS: omega-3 fatty acids 1,000 mg Capsule 1000 MG PO (08:01)
[2021-03-30] MEDS: sotalol 80 mg Tablet PO ×2 (08:01→19:49)
[2021-03-30] MEDS: doxycycline 100 mg Tablet PO ×2 (08:01→19:49)
[2021-03-30] MEDS: ibuprofen 800 mg tablet PO ×2 (08:01→19:50)
[2021-03-30] MEDS: clopidogrel 75 mg Tablet PO (08:02)
[2021-03-30] MEDS: fenofibrate 145 mg Tablet PO (08:02)
[2021-03-30] MEDS: levothyroxine 150 mcg Tablet PO (08:02)
[2021-03-30] MEDS: dilTIAZem ER (24HR) 180 mg Capsule PO (08:02)
[2021-03-30] MEDS: apixaban 5 mg Tablet PO ×2 (08:03→19:49)
[2021-03-30] MEDS: FUROsemide 40 mg Tablet PO (08:03)
[2021-03-30] MEDS: potassium chloride ER 10 mEq Tablet PO ×2 (08:03→19:50)
[2021-03-30] MEDS: amoxicillin-clav 875-125 mg Tablet 1 TAB PO ×2 (08:03→19:48)
[2021-03-30] MEDS: metformin XR 500 MG Tablet 750 MG PO ×2 (08:04→16:54)
--- NOTE | 2021-03-30 08:09 | PC.NURSE ---
refused scheduled Zoloft, protonix, abilify, and senna
[2021-03-30 14:00] VITALS: BP 107/71; PULSE 109; RESP 18; TEMP 36.3; O2SAT 95
[2021-03-30] MEDS: ARIPiprazole 2 mg Tablet PO (19:48)
[2021-03-30] MEDS: ARIPiprazole 10 mg Tablet PO (19:49)
[2021-03-30] MEDS: pantoprazole DR 40 mg Tablet PO (19:49)
[2021-03-30 22:00] VITALS: BP 137/87; PULSE 131; RESP 19; TEMP 36.6; O2SAT 94
[2021-03-31 06:00] VITALS: BP 124/87; PULSE 121; RESP 18; TEMP 36.8; O2SAT 98
[2021-03-31] MEDS: doxycycline 100 mg Tablet PO ×2 (10:14→20:46)
[2021-03-31] MEDS: dilTIAZem ER (24HR) 180 mg Capsule PO (10:14)
[2021-03-31] MEDS: levothyroxine 150 mcg Tablet PO (10:15)
[2021-03-31] MEDS: metformin XR 500 MG Tablet 750 MG PO ×2 (10:15→18:20)
[2021-03-31] MEDS: potassium chloride ER 10 mEq Tablet PO ×2 (10:16→20:45)
[2021-03-31] MEDS: amoxicillin-clav 875-125 mg Tablet 1 TAB PO ×2 (10:16→20:46)
[2021-03-31] MEDS: fenofibrate 145 mg Tablet PO (10:16)
[2021-03-31] MEDS: clopidogrel 75 mg Tablet PO (10:16)
[2021-03-31] MEDS: apixaban 5 mg Tablet PO ×2 (10:17→20:46)
[2021-03-31] MEDS: pantoprazole DR 40 mg Tablet PO ×2 (10:17→20:46)
[2021-03-31] MEDS: sertraline 50 mg Tablet PO (10:17)
[2021-03-31 10:18] LABS: Blood Urea Nitrogen 12 mg/dL (8-23); Calcium 8.7 mg/dL (8.5-10.5); Carbon Dioxide 22 mmol/L (22-29); Chloride 100 mmol/L (98-107); Creatinine Clr Calc Pharmacy 98.0693; Glomerular Filtration Rate 84.8 mL/min (90-130); Glucose 114 mg/dL (65-115); Osmolality Calculated 283 mOsm/kg (285-295); Sodium 136 mmol/L (136-145)
[2021-03-31] MEDS: sotalol 80 mg Tablet PO ×2 (10:19→20:47)
[2021-03-31 10:24] LABS: Magnesium 1.3 mg/dL (1.7-2.3); NT Pro B Type Natriuretic Pept 3414 pg/mL (0-125)
[2021-03-31 10:34] LABS: Anion Gap 18.5 (5-19); Potassium 4.5 mmol/L (3.5-5.1)
--- NOTE | 2021-03-31 10:55 | PM.NPN ---
Subjective NPU Subjective: Interval history: Patient presents today doing slowly better and decreasing with her hyperverbalness. She continues to be quite focused on wanting to be discharged. But she seems more reasonable and that she can only go when we have a clear safe plan. She has had moments of medication refusal but is reportedly doing better according to staff. Mental Status Exam MSE Comments: This is an obese versus morbidly obese white female in hospital scrubs with adequate grooming and appropriate eye contact. No abnormal movements except for mild psychomotor retardation. More cooperative with exam in no acute distress. Speech was more normal rate and volume. Mood described as okay, I will be better when I leave, affect calmer. Thought process organized. Thought content: Patient denied suicidal or homicidal ideation, there are no delusions reported or noted, she denied auditory or visual hallucinations. Attention and concentration appeared intact and memory seems more reliable but none were formally tested. She is alert and oriented x3. Insight and judgment appear limited, but improving impulse control appears limited. Vitals/I&O/Wt Last Vital Signs Temp 98.2 F 03/31/21 06:00 Pulse 121 H 03/31/21 06:00 Resp 18 03/31/21 06:00 BP 124/87 03/31/21 06:00 Pulse Ox 98 03/31/21 06:00 Data NPU : 04/03/21 15:20 04/03/21 15:20 A&P Additional A&P Information (1) Bilateral lower extremity edema: (2) Bipolar affective, mixed, sev w/ psych: (3) COVID-19: (4) Acute psychosis: (5) Type 2 diabetes mellitus: (6) Atrial fibrillation: (7) Cellulitis: (8) Atherosclerosis of coronary artery of [place] heart without angina pectoris: (9) Chronic anticoagulation: (10) Essential hypertension: Additional A&P Information Ivette Wheeler is a 61 carlitos old female who presented to the [facility] ED a few hours after being discharged from the neuropsychiatric unit. She continues to have psychosis and erratic behavior, and to put herself in dangerous situations with seemingly very impulsive behavior. RECOMMENDATION AND PLAN: 1. Continue current medication. 2. Continue every 15 minute checks for safety. 3. Encourage individual, group and milieu therapies. 4. Will follow hospitalist's recommendations on medical comorbidities. 5. Need to develop an adequate plan for discharge to the community. 6. She is on a guardianship hold. Involuntary Hold Information 96 Hour Hold: 96 Hour Involuntary Admission: Yes 96 Hour Hold Ending Date: 03/27/21 96 Hour Hold Ending Time: 07:23 Attestations NPU Medical Necessity Statement*: Inpatient hospitalization is medically necessary and the clinically appropriate intervention at this time. We will monitor medications and make changes as indicated. Likely length of stay 10-14 days. She is in need of guardianship and we will wait for her hearing date. Coding Level of Care Code Acute Cardiothoracic Anesthesia Technician for Jimmie Arias
[2021-03-31] MEDS: sennosides 8.6 mg Tablet PO (11:11)
[2021-03-31] MEDS: FUROsemide 40 mg Tablet PO (11:36)
[2021-03-31 13:40] LABS: Glucose Point of Care 116 mg/dL (70-110)
[2021-03-31 13:40] LABS: Glucose Point of Care 159 mg/dL (70-110)
[2021-03-31 13:40] LABS: Glucose Point of Care 96 mg/dL (70-110)
[2021-03-31 13:40] LABS: Glucose Point of Care 102 mg/dL (70-110)
[2021-03-31 13:40] LABS: Glucose Point of Care 123 mg/dL (70-110)
[2021-03-31 13:51] VITALS: BP 108/77; PULSE 115; RESP 16; TEMP 36.3; O2SAT 97
--- NOTE | 2021-03-31 15:01 | PM.PN ---
Subjective Subjective: Interval history: Patient was seen this morning, she tells me that she is feeling a lot better, her swelling has improved, however she continues to have episodes of tachycardia, Vitals/I&O/Wt Last Vital Signs Temp 97.4 F L 03/31/21 13:51 Pulse 115 H 03/31/21 13:51 Resp 16 03/31/21 13:51 BP 108/77 03/31/21 13:51 Pulse Ox 97 03/31/21 13:51 Physical Exam Const: COMMON NORMALS: no acute distress and patient oriented x3 Resp: COMMON NORMALS: normal respiratory effort, No retractions, No use of accessory muscles and clear to auscultation bilaterally AUSCULTATION: clear to auscultation bilaterally Cardio: COMMON NORMALS: S1 normal heart sound present and S2 normal heart sound present RATE: tachycardic RHYTHM: abnormal rhythm HEART SOUNDS: S1 normal heart sound present and S2 normal heart sound present GI: COMMON NORMALS: Normal to inspection, nondistended, normoactive bowel sounds present, Soft to palpation, non-tender and No hepatosplenomegaly present PALPATION: Yes Soft to palpation and Yes No hepatosplenomegaly present Extremity: COMMON NORMALS: no pedal edema NARRATIVE EXTREMITY EXAM: Erythema has significantly improved, nonpitting edema Neuro: COMMON NORMALS: patient oriented x3 Psych: COMMON NORMALS: mental status grossly normal Data : 03/22/21 14:20 03/31/21 08:57 A&P Assessment and plan (1) Atrial fibrillation: Currently having episode tachycardia Continue sotalol, change Cardizem to 90 every 6 hours Continue chronic anticoagulation with apixaban. Status: Acute Qualifiers: Atrial fibrillation type: unspecified Qualified Code(s): I48.91 - Unspecified atrial fibrillation (2) Type 2 diabetes mellitus: Continue consistent carb diet Continue Metformin Mild sliding scale insulin, none at bedtime Status: Acute (3) Atherosclerosis of coronary artery of [place] heart without angina pectoris: Continue Plavix Continue Eliquis Continue fenofibrate. I am not for sure why she is not on a statin but it is listed in her allergies. Status: Chronic (4) Cellulitis: Continue doxycycline Augmentin for at least 7 days Status: Acute Qualifiers: Site of cellulitis: extremity Site of cellulitis of extremity: lower extremity Laterality: unspecified laterality Qualified Code(s): L03.119 - Cellulitis of unspecified part of limb (5) Essential hypertension: Controlled currently Status: Chronic (6) Bilateral lower extremity edema: -Creatinine, potassium within normal limits -Decrease Lasix to 40 mg daily Status: Acute Additional A&P Information Bipolar depression. Being addressed by psychiatry Thank you for this consultation. At this point her evaluations by medicine can be every 2 to 3 days. Please call if an issue comes up that needs to be addressed sooner. Recheck electrolytes Friday to ensure stability on diuretic. Attestations Medical Necessity Statement*: Requires hospitalization for A. fib, CHF Coding Level of Care Code Acute Sports Management Professor for g Fwd Diagnoses Atrial fibrillation I48.91 Atrial fibrillation type: unspecified Type 2 diabetes mellitus E11.9 Atherosclerosis of coronary artery of [place] heart without angina pectoris I25.10 Cellulitis L03.119 Site of cellulitis: extremity Site of cellulitis of extremity: lower extremity Laterality: unspecified laterality Essential hypertension I10 Bilateral lower extremity edema R60.0
[2021-03-31] MEDS: magnesium oxide 400 mg tablet PO (15:51)
[2021-03-31 18:00] LABS: Glucose Point of Care 137 mg/dL (70-110)
[2021-03-31] MEDS: dilTIAZem 60 mg Tablet 90 MG PO (18:20)
[2021-03-31] MEDS: acetaminophen 325 mg Tablet 650 MG PO (18:22)
[2021-03-31 20:00] LABS: Glucose Point of Care 105 mg/dL (70-110)
[2021-03-31 20:15] VITALS: BP 102/70; PULSE 96; RESP 17; TEMP 36.6; O2SAT 97
--- NOTE | 2021-03-31 20:25 | PC.NURSE ---
pt noted with increased anxiety, trying to talk with staff but unable to find the words she is wanting to say, which only increases her anxiety even more. Zyprexa zydis 5mg SL given.
[2021-03-31] MEDS: ARIPiprazole 2 mg Tablet PO (20:45)
[2021-03-31] MEDS: ibuprofen 800 mg tablet PO (20:45)
[2021-03-31] MEDS: ARIPiprazole 10 mg Tablet PO (20:46)
--- NOTE | 2021-03-31 22:00 | PC.NURSE ---
pt in room resting quietly with both eyes closed.
[2021-04-01] MEDS: dilTIAZem 60 mg Tablet 90 MG PO ×5 (00:39→23:38)
[2021-04-01] MEDS: diphenhydrAMINE 50 mg Capsule PO (02:38)
--- NOTE | 2021-04-01 02:40 | PC.NURSE ---
pt c/o JEN itching, Benadryl 50mg po given.
--- NOTE | 2021-04-01 03:00 | PC.NURSE ---
pt in room resting quietly with both eyes closed.
[2021-04-01 06:00] VITALS: BP 117/81; PULSE 82; RESP 17; TEMP 36.7; O2SAT 95; BMI 39.4
[2021-04-01] MEDS: metformin XR 500 MG Tablet 750 MG PO ×2 (06:06→17:49)
[2021-04-01 06:34] LABS: Glucose Point of Care 104 mg/dL (70-110)
[2021-04-01] MEDS: omega-3 fatty acids 1,000 mg Capsule 1000 MG PO (09:41)
[2021-04-01] MEDS: fenofibrate 145 mg Tablet PO (09:41)
[2021-04-01] MEDS: magnesium oxide 400 mg tablet PO ×2 (09:41→17:50)
[2021-04-01] MEDS: amoxicillin-clav 875-125 mg Tablet 1 TAB PO (09:41)
[2021-04-01] MEDS: ibuprofen 800 mg tablet PO (09:42)
[2021-04-01] MEDS: FUROsemide 40 mg Tablet PO (09:42)
[2021-04-01] MEDS: doxycycline 100 mg Tablet PO (09:42)
[2021-04-01] MEDS: apixaban 5 mg Tablet PO (09:43)
[2021-04-01] MEDS: potassium chloride ER 10 mEq Tablet PO (09:43)
[2021-04-01] MEDS: levothyroxine 150 mcg Tablet PO (09:43)
[2021-04-01] MEDS: sotalol 80 mg Tablet PO (09:43)
[2021-04-01] MEDS: sertraline 50 mg Tablet PO (09:43)
[2021-04-01] MEDS: clopidogrel 75 mg Tablet PO (09:43)
--- NOTE | 2021-04-01 10:22 | PM.NPN ---
Subjective NPU Subjective: Interval history: Patient presents today reporting that she would like to leave today if possible. We continue to discuss that the reason for keeping her as everything to do with safety and her not attempting independent functioning. She seems to be doing better with the medication without the pressured speech and other manic symptoms. She continues to have somewhat limited insight but that could just be desire for discharge but she significantly more cooperative and denied any significant issues at this time. Mental Status Exam MSE Comments: This is an obese versus morbidly obese white female in hospital scrubs with adequate grooming and appropriate eye contact. No abnormal movements except for mild psychomotor retardation. More cooperative with exam in no acute distress. Speech was more normal rate and volume. Mood described as pretty good, affect calmer. Thought process organized. Thought content: Patient denied suicidal or homicidal ideation, there are no delusions reported or noted, she denied auditory or visual hallucinations. Attention and concentration appeared intact and memory seems more reliable but none were formally tested. She is alert and oriented x3. Insight and judgment appear limited, but improving impulse control appears limited. Vitals/I&O/Wt Last Vital Signs Temp 97.8 F 03/31/21 20:15 Pulse 96 03/31/21 20:15 Resp 17 03/31/21 20:15 BP 102/70 03/31/21 20:15 Pulse Ox 97 03/31/21 20:15 Data NPU : 03/22/21 14:20 03/31/21 08:57 A&P Additional A&P Information (1) Bilateral lower extremity edema: (2) Bipolar affective, mixed, sev w/ psych: (3) COVID-19: (4) Acute psychosis: (5) Type 2 diabetes mellitus: (6) Atrial fibrillation: (7) Cellulitis: (8) Atherosclerosis of coronary artery of [place] heart without angina pectoris: (9) Chronic anticoagulation: (10) Essential hypertension: Ivette Wheeler is a 61 carlitos old female who presented to the [facility] ED a few hours after being discharged from the neuropsychiatric unit. She continues to have psychosis and erratic behavior, and to put herself in dangerous situations with seemingly very impulsive behavior. RECOMMENDATION AND PLAN: 1. Continue current medication. 2. Continue every 15 minute checks for safety. 3. Encourage individual, group and milieu therapies. 4. Will follow hospitalist's recommendations on medical comorbidities. 5. Need to develop an adequate plan for discharge to the community. 6. She is on a guardianship hold. Involuntary Hold Information 96 Hour Hold: 96 Hour Involuntary Admission: Yes 96 Hour Hold Ending Date: 03/27/21 96 Hour Hold Ending Time: 07:23 Attestations NPU Medical Necessity Statement*: Inpatient hospitalization is medically necessary and the clinically appropriate intervention at this time. We will monitor medications and make changes as indicated. Likely length of stay 10-14 days. She is in need of guardianship and we will wait for her hearing date. Coding Level of Care Code Acute Plumber Gasfitter for Jimmie Arias
[2021-04-01] MEDS: pantoprazole DR 40 mg Tablet PO (11:03)
[2021-04-01 11:08] LABS: Glucose Point of Care 107 mg/dL (70-110)
[2021-04-01] MEDS: acetaminophen 325 mg Tablet 650 MG PO (12:00)
[2021-04-01 13:52] VITALS: BP 95/67; PULSE 81; RESP 16; TEMP 36.1; O2SAT 97
[2021-04-01 15:00] VITALS: BP 101/70; PULSE 70; RESP 18; TEMP 36.1; O2SAT 94
--- NOTE | 2021-04-01 15:19 | PC.NUTR ---
Nutrition note: Contacted NPU nurse regarding current diet order and discussed option to d/c the 2 soups with each lunch/supper. Nurse agreed with this suggestion. Recommend consideration of Cardiac restrictions being added to diet given dx CHF, CAD, and HTN, and 4+ weeping edema to BLE. See full RD assessment for further details.
[2021-04-01 16:46] LABS: Glucose Point of Care 123 mg/dL (70-110)
[2021-04-01 20:21] LABS: Glucose Point of Care 112 mg/dL (70-110)
[2021-04-01 20:41] VITALS: BP 90/59; PULSE 81; RESP 17; TEMP 37.2; O2SAT 95
[2021-04-01 20:46] LABS: INR 1.54 (0.8-1.2)
[2021-04-01 20:53] LABS: Alanine Aminotransferase 9 U/L (0-33); Albumin Level 3.4 g/dL (3.5-5.2); Alkaline Phosphatase 43 IU/L (35-105); Anion Gap 14.9 (5-19); Aspartate Amino Transferase 15 U/L (0-32); Blood Urea Nitrogen 10 mg/dL (8-23); Calcium 8.8 mg/dL (8.5-10.5); Carbon Dioxide 26 mmol/L (22-29); Chloride 98 mmol/L (98-107); Creatinine Clr Calc Pharmacy 98.0693; Globulin 2.6 g/dL (1.3-4.6); Glomerular Filtration Rate 84.8 mL/min (90-130); Glucose 101 mg/dL (65-115); Osmolality Calculated 279 mOsm/kg (285-295); Potassium 3.9 mmol/L (3.5-5.1); Sodium 135 mmol/L (136-145); Total Bilirubin 0.6 mg/dL (0.15-1.2)
--- NOTE | 2021-04-01 22:44 | PC.NURSE ---
pt noted not being her usual intrusive self. pt wanting to sleep most of shift so far. pt refused to take her night medications, would put them in her mouth but then make a yukky face and spit them back out. attempt to crush them and put them in pudding was not successful. pt is confused, mumbling and not able to voice her needs or wants. pt noted with expressive aphasia. will notify Dr Heller.
[2021-04-02] MEDS: ibuprofen 800 mg tablet PO (03:14)
[2021-04-02 06:00] VITALS: BP 112/73; PULSE 93; RESP 15; TEMP 37; O2SAT 95
[2021-04-02] MEDS: metformin XR 500 MG Tablet 750 MG PO (06:09)
[2021-04-02] MEDS: dilTIAZem 60 mg Tablet 90 MG PO ×4 (06:09→22:09)
[2021-04-02 07:16] LABS: Glucose Point of Care 101 mg/dL (70-110)
--- NOTE | 2021-04-02 08:25 | PC.NURSE ---
refused scheduled Senna and Zoloft
[2021-04-02] MEDS: fenofibrate 145 mg Tablet PO (08:27)
[2021-04-02] MEDS: sotalol 80 mg Tablet PO ×2 (08:27→22:08)
[2021-04-02] MEDS: apixaban 5 mg Tablet PO ×2 (08:27→22:09)
[2021-04-02] MEDS: omega-3 fatty acids 1,000 mg Capsule 1000 MG PO (08:27)
[2021-04-02] MEDS: FUROsemide 40 mg Tablet PO (08:27)
[2021-04-02] MEDS: magnesium oxide 400 mg tablet PO ×2 (08:27→18:56)
[2021-04-02] MEDS: amoxicillin-clav 875-125 mg Tablet 1 TAB PO ×2 (08:27→22:09)
[2021-04-02] MEDS: clopidogrel 75 mg Tablet PO (08:27)
[2021-04-02] MEDS: potassium chloride ER 10 mEq Tablet PO ×2 (08:27→22:09)
[2021-04-02] MEDS: doxycycline 100 mg Tablet PO ×2 (08:27→22:09)
[2021-04-02] MEDS: levothyroxine 150 mcg Tablet PO (08:28)
[2021-04-02] MEDS: pantoprazole DR 40 mg Tablet PO ×2 (08:28→22:11)
[2021-04-02 11:26] LABS: Glucose Point of Care 129 mg/dL (70-110)
--- NOTE | 2021-04-02 12:40 | PM.NPN ---
Subjective NPU Subjective: Interval history: Patient presents today continuing to be less intrusive and now being on the sluggish side of things. She had a notable rash on her face and almost a butterfly pattern that had not been there yesterday to my recollection and at least not that prominent. She continues to struggle with self-care and continues to demonstrate her inability for independence often needing for these wanting staff assistance and having clear benefit from having assistance with her ADLs. We agreed to have the hospitalist come and make sure her current presentation does not represent some underlying medical concerns. Mental Status Exam MSE Comments: This is an obese versus morbidly obese white female in hospital scrubs with adequate grooming and appropriate eye contact. No abnormal movements except for mild psychomotor retardation. More cooperative with exam in no acute distress. Speech was somewhat decreased rate and volume. Mood described as okay, affect c slightly subdued. Thought process organized. Thought content: Patient denied suicidal or homicidal ideation, there are no delusions reported or noted, she denied auditory or visual hallucinations. Attention and concentration appeared intact and memory seems more reliable but none were formally tested. She is alert and oriented x3. Insight and judgment appear limited, but improving impulse control appears limited. Vitals/I&O/Wt Last Vital Signs Temp 98.6 F 04/02/21 06:00 Pulse 93 04/02/21 06:00 Resp 15 04/02/21 06:00 BP 112/73 04/02/21 06:00 Pulse Ox 95 04/02/21 06:00 Weight last 48 hrs Weight 104.326 kg Data NPU : 03/22/21 14:20 04/01/21 20:17 A&P Additional A&P Information (1) Bilateral lower extremity edema: (2) Bipolar affective, mixed, sev w/ psych: (3) COVID-19: (4) Acute psychosis: (5) Type 2 diabetes mellitus: (6) Atrial fibrillation: (7) Cellulitis: (8) Atherosclerosis of coronary artery of [place] heart without angina pectoris: (9) Chronic anticoagulation: (10) Essential hypertension: Ivette Wheeler is a 61 carlitos old female who presented to the [facility] ED a few hours after being discharged from the neuropsychiatric unit. She continues to have psychosis and erratic behavior, and to put herself in dangerous situations with seemingly very impulsive behavior. RECOMMENDATION AND PLAN: 1. Continue current medication. 2. Continue every 15 minute checks for safety. 3. Encourage individual, group and milieu therapies. 4. Will follow hospitalist's recommendations on medical comorbidities. 5. Need to develop an adequate plan for discharge to the community. 6. She is on a guardianship hold. 7. Request hospitalist to come and reexamine her to make sure she is still medically stable. Involuntary Hold Information 96 Hour Hold: 96 Hour Involuntary Admission: Yes 96 Hour Hold Ending Date: 03/27/21 96 Hour Hold Ending Time: 07:23 Attestations NPU Medical Necessity Statement*: Inpatient hospitalization is medically necessary and the clinically appropriate intervention at this time. We will monitor medications and make changes as indicated. Likely length of stay 10-14 days. She is in need of guardianship and we will wait for her hearing date. Coding Level of Care Code Acute Electrophysiology Nurse Practitioner for Jimmie Arias
[2021-04-02 14:00] VITALS: BP 90/62; PULSE 82; RESP 18; TEMP 36.9; O2SAT 92
[2021-04-02 17:10] LABS: Glucose Point of Care 121 mg/dL (70-110)
[2021-04-02 17:12] VITALS: BP 102/66; PULSE 78; RESP 16; TEMP 36.2; O2SAT 95
--- NOTE | 2021-04-02 17:36 | PC.NURSE ---
REFUSED SCHEDULED METFORMIN, PT ALSO REFUSED DINNER AT THIS TIME.
[2021-04-02 20:06] LABS: Glucose Point of Care 134 mg/dL (70-110)
[2021-04-02 20:12] VITALS: BP 117/66; PULSE 90; RESP 15; TEMP 37.1; O2SAT 92
[2021-04-02] MEDS: ARIPiprazole 10 mg Tablet PO (22:09)
[2021-04-02] MEDS: ARIPiprazole 2 mg Tablet PO (22:09)
[2021-04-02] MEDS: diphenhydrAMINE 50 mg Capsule PO (22:48)
--- NOTE | 2021-04-02 22:50 | PC.NURSE ---
pt c/o rash itching, benadryl 50mg po given.
--- NOTE | 2021-04-02 23:57 | PC.NURSE ---
pt resting quietly
[2021-04-03] VITALS (12 sets, daily range): BP systolic 105–163; BP diastolic 59–121; PULSE 68–137; RESP 13–25; TEMP 36.9–37.1; O2SAT 92–99
[2021-04-03] MEDS: metformin XR 500 MG Tablet 750 MG PO (05:43)
[2021-04-03] MEDS: dilTIAZem 60 mg Tablet 90 MG PO (05:44)
[2021-04-03] MEDS: doxycycline 100 mg Tablet PO ×2 (09:22→22:05)
[2021-04-03] MEDS: sotalol 80 mg Tablet PO (09:22)
[2021-04-03] MEDS: pantoprazole DR 40 mg Tablet PO (09:22)
[2021-04-03] MEDS: clopidogrel 75 mg Tablet PO (09:22)
[2021-04-03] MEDS: FUROsemide 40 mg Tablet PO (09:22)
[2021-04-03] MEDS: magnesium oxide 400 mg tablet PO (09:23)
[2021-04-03] MEDS: levothyroxine 150 mcg Tablet PO (09:23)
[2021-04-03] MEDS: amoxicillin-clav 875-125 mg Tablet 1 TAB PO (09:23)
[2021-04-03] MEDS: omega-3 fatty acids 1,000 mg Capsule 1000 MG PO (09:23)
[2021-04-03] MEDS: fenofibrate 145 mg Tablet PO (09:23)
[2021-04-03] MEDS: sertraline 50 mg Tablet PO (09:23)
--- NOTE | 2021-04-03 11:21 | P.CONIM_ITS ---
Providers/Reason For Consult Consulting Physician/Specialty*: Hospitalist service Reason for Consult*: Movement disorder Attending Physician: Bienvenido Heller MD Primary Care Provider: Yaw Sinclair MD History of Present Illness History of Present Illness Ivette Wheeler is a 61 year old female who is in neuropsychiatric unit for bipolar affective disorder, hospitalist is consulted to evaluate her because of her inability to walk. I have examined this patient multiple times in the past, she has history of atrial fibrillation developed hematoma while on Coumadin that has been switched to Eliquis, she has had recurrent falls in the past, she was treated for cellulitis of legs with underlying lymphedema, history of coronary disease status post stent placement, noncompliant. Today nurses are telling me that patient has gradually gotten very slow and she is not able to walk anymore, she is not making any sense at all and this has been going on for last 4 to 5 days, no fever, TSH is normal previous CT head unremarkable lumbar CT scan showed multiple level degenerative changes, she has been afebrile. Patient is not able to tell me exactly what is going on but able to tell me her name, date of and read name tag from my scrubs I made her walk using a walker she is taking baby steps, there is no focal deficit noted, does not have any signs of myasthenia gravis I do suspect extraparametal symptoms from antipsychotics Rule out CVA requested CT head, CTA head and neck BMP, CBC ABG and prolactin level Review of Systems General: Reports: ROS unobtainable due to medical condition (Hypoactive delirium) Meds/Allergies Home Medications and Allergies Home Medications Medication Instructions Recorded Confirmed Last Taken Type pantoprazole 40 mg PO BID #60 tab 02/11/21 03/20/21 Unknown Rx clopidogrel 75 mg PO DAILY 30 Days #30 tab 03/02/21 03/20/21 Unknown Rx Advair Diskus 1 puff INHALATION BID 03/20/21 03/20/21 Unknown History bacitracin 1 applic TOPICAL TID 03/20/21 03/20/21 Unknown History diltiazem HCl 180 mg PO DAILY 03/20/21 03/20/21 Unknown History doxycycline hyclate 100 mg PO DAILY 03/20/21 03/20/21 Unknown History fenofibrate nanocrystallized 145 mg PO DAILY #30 tab 03/20/21 03/20/21 02/08/21 Rx furosemide 40 mg PO DAILY@0800 #30 tab 03/20/21 03/20/21 Unknown Rx levothyroxine [Euthyrox] 150 mcg PO DAILY #30 tab 03/20/21 03/20/21 02/08/21 Rx metformin 750 mg PO BID 03/20/21 03/20/21 Unknown History nystatin [Nystop] 1 applic TOPICAL 0900,2100 #30 g 03/20/21 03/20/21 Unknown Rx omega-3 fatty acids [Fish Oil 1,000 mg PO BID #60 cap 03/20/21 03/20/21 01/22/21 06:00 Rx Concentrate] paroxetine HCl 10 mg PO DAILY 03/20/21 03/20/21 Unknown History potassium chloride 10 meq PO DAILY #30 tab 03/20/21 03/20/21 02/08/21 Rx sennosides [Senna Lax] 8.6 mg PO 0900,2100 #60 tab 03/20/21 03/20/21 Unknown Rx sertraline 50 mg PO DAILY #30 tab 03/20/21 03/20/21 Unknown Rx sotalol 80 mg PO BID@0900,2100 03/20/21 03/20/21 Unknown History warfarin 4 mg PO TID 03/20/21 03/20/21 Unknown History Allergies Allergy/AdvReac Type Severity Reaction Status Date / Time atorvastatin [From Lipitor] Allergy Unknown Verified 02/27/21 17:47 lisinopril Allergy Unknown Verified 02/27/21 17:47 Current Medications Current Medications Generic Name Dose Route Start Last Admin Trade Name Freq PRN Reason Stop Dose Admin Acetaminophen 650 mg 03/21/21 09:34 04/01/21 12:00 Acetaminophen 325 Mg Tablet PO 650 mg Q4H PRN Administration MILD PAIN Amoxicillin/Clavulanate Potassium 1 tab 03/28/21 21:00 04/03/21 09:23 Amoxicillin-Clav 875-125 Mg Tablet PO 1 tab 0900,2100 AGNES Administration Protocol Apixaban 5 mg 03/21/21 12:05 04/03/21 09:36 Apixaban 5 Mg Tablet PO Not Given BID@0900,2100 [facility] Aripiprazole 10 mg 03/30/21 21:00 04/02/21 22:09 Aripiprazole 10 Mg Tablet PO 10 mg BEDTIME AGNES Administration Aripiprazole 2 mg 03/30/21 21:00 04/02/21 22:09 Aripiprazole 2 Mg Tablet PO 2 mg BEDTIME AGNES Administration Benzocaine 1 each 03/22/21 05:54 03/28/21 20:07 Cetylpyridinium Lozenge MUCOUS MEM 1 each Q2H PRN Administration SORE THROAT Clopidogrel Bisulfate 75 mg 03/21/21 09:45 04/03/21 09:22 Clopidogrel 75 Mg Tablet PO 75 mg DAILY AGNES Administration Diphenhydramine HCl 50 mg 03/25/21 21:55 04/02/21 22:48 Diphenhydramine 50 Mg Capsule PO 50 mg Q4H PRN Administration ITCHING Doxycycline Monohydrate 100 mg 03/28/21 21:00 04/03/21 09:22 Doxycycline 100 Mg Tablet PO 100 mg 0900,2100 AGNES Administration Protocol Fenofibrate 145 mg 03/21/21 09:45 04/03/21 09:23 Fenofibrate 145 Mg Tablet PO 145 mg DAILY AGNES Administration Furosemide 40 mg 03/28/21 10:00 04/03/21 09:22 Furosemide 40 Mg Tablet PO 40 mg Q24H AGNES Administration Hydrocortisone 1 applic 03/25/21 21:59 03/28/21 20:07 Hydrocortisone 2.5% Cream 28 Gm TOPICAL 1 applic QID PRN Administration ITCHING Hydroxyzine Pamoate 50 mg 03/21/21 09:34 03/21/21 20:22 Hydroxyzine 25 Mg Capsule PO 50 mg Q6H PRN Administration ANXIETY Ibuprofen 800 mg 03/28/21 16:22 04/02/21 03:14 Ibuprofen 800 Mg Tablet PO 800 mg Q8H PRN Administration MODERATE PAIN Insulin Aspart 0 unit 03/23/21 12:00 04/03/21 09:19 Insulin Aspart 100 Unit/1 Ml SUBCUT Not Given TIDWM [facility] Protocol Levothyroxine Sodium 150 mcg 03/21/21 09:45 04/03/21 09:23 Levothyroxine 150 Mcg Tablet PO 150 mcg DAILY AGNES Administration Magnesium Oxide 400 mg 04/01/21 09:00 04/03/21 09:23 Magnesium Oxide 400 Mg Tablet PO 400 mg BID AGNES Administration Metformin HCl 750 mg 03/28/21 17:00 04/03/21 05:43 Metformin Xr 500 Mg Tablet PO 750 mg 0700,1700 AGNES Administration Olanzapine 5 mg 03/21/21 09:34 03/21/21 20:22 Olanzapine 5 Mg Odt PO 5 mg Q4H PRN Administration Agitation/Psychosis Vjmtm-1-Bbao Ethyl Esters 1,000 mg 03/21/21 09:45 04/03/21 09:23 [place]-3 Fatty Acids 1,000 Mg Capsule PO 1,000 mg DAILY AGNES Administration Pantoprazole Sodium 40 mg 03/28/21 21:00 04/03/21 09:[address] 40 Mg Tablet PO 40 mg 899,2099 AGNES Administration Phenyleph/Shark Oil/Min Oil/Petrol 1 applic 03/21/21 15:31 03/24/21 06:19 Phenyleph-Mineral Oil-Petrolat Oint 28 Gm TOPICAL 1 gm QID PRN Administration HEMORRHOIDS Potassium Chloride 10 meq 03/26/21 09:30 04/03/21 09:36 Potassium Chloride Er 10 Meq Tablet PO Not Given Q12H AGNES Senna 8.6 mg 03/21/21 21:00 04/03/21 09:36 Sennosides 8.6 Mg Tablet PO Not Given 899,2099 AGNES Sertraline HCl 50 mg 03/21/21 09:45 04/03/21 09:23 Sertraline 50 Mg Tablet PO 50 mg DAILY AGNES Administration Sotalol HCl 80 mg 03/21/21 21:00 04/03/21 09:22 Sotalol 80 Mg Tablet PO 80 mg BID@00,2099 [facility] Administration Zinc Acetate/Diphenhydramine 1 applic 03/28/21 22:19 03/30/21 04:03 Diphenhydramine Cream 30 Gm TOPICAL 1 gm Q4H PRN Administration RASH PFSH Acute PFSH: Medical History ASHD (arteriosclerotic heart disease) Atrial fibrillation CHF (congestive heart failure) COVID-19 January Dyslipidemia Essential hypertension Hx of deep venous thrombosis Mitral valve regurgitation Pulmonary hypertension Tricuspid valve regurgitation Type 2 diabetes mellitus Surgical History History of coronary artery bypass graft 2005 History of coronary artery stent placement History of total vaginal hysterectomy History of tubal ligation Status post colonoscopy Family History Other CAD (coronary artery disease) Diabetes Hypertension Social History Smoking and tobacco status: never smoked Alcohol intake: current Alcohol intake frequency: holidays/special occasions only Household members: significant other Marital status: Single Vitals/I&O/Wt Last Vital Signs Temp 98.7 F 04/03/21 06:00 Pulse 68 04/03/21 06:00 Resp 15 04/03/21 06:00 BP 128/87 04/03/21 06:00 Pulse Ox 97 04/03/21 06:00 Physical Exam Narrative: EXAM NARRATIVE: Patient was laying comfortably in her bed awake and alert oriented to time place and person Her movements are very slow She is taking time to articulate however no slurring of speech noted She is taking baby steps while using a walker No focal deficit No facial asymmetry Able to follow commands however taking longer to answer No facial droop Pupils are equal I did not notice any tremors Variable S1-S2 Looks euvolemic Lower extremities with wrinkling of skin no active cellulitis As compared to previous exam edema seems to be improved Bilateral breath sounds with rhonchi with diminished breath sounds in the base Soft nontender distended abdomen A&P Assessment and plan (1) Extrapyramidal and movement disorder: Status: Acute (2) Bilateral lower extremity edema: Status: Acute (3) Bipolar affective, mixed, sev w/ psych: Status: Acute (4) Type 2 diabetes mellitus: Status: Acute (5) Atrial fibrillation: Status: Acute Qualifiers: Atrial fibrillation type: unspecified Qualified Code(s): I48.91 - Unspecified atrial fibrillation (6) Pneumonitis: Status: Acute Additional A&P Information Extraparametal movement disorder (most prominent features, abnormal gait, postural instability and bradykinesia) Would recommend using lower doses of antipsychotics if you really have to use any Start benztropine and diphenhydramine I would schedule these medications for next 3 days and see the response Diphenhydramine 50 mg IM given today Requested CT head, CTA head and neck however NIH is 0 no focal deficits Requested prolactin level, seizure less likely Requested B12 level TSH is normal Left lung pneumonitis She has been afebrile, She has been on Augmentin and doxycycline which I would continue for now Mild cephalization noticed on chest x-ray continue Lasix Congestive heart failure: I would continue her Lasix she seems to be compensated at this point Continue potassium supplementation with it A. fib without RVR Continue rate control medications and Eliquis Full code Consistent carb diet She might benefit from PT which can be initiated tomorrow Consult Attestations Medical Necessity Statement: As per neuropsych Time Spent in Patient Care: 16 - 35 minutes Coding Level of Care Code Acute Heel Seat Laster for Chg Fwd Diagnoses Extrapyramidal and movement disorder G25.9 Bilateral lower extremity edema R60.0 Bipolar affective, mixed, sev w/ psych F31.64 Type 2 diabetes mellitus E11.9 Atrial fibrillation I48.91 Atrial fibrillation type: unspecified Pneumonitis J18.9
[2021-04-03 11:26] LABS: Glucose Point of Care 136 mg/dL (70-110)
--- NOTE | 2021-04-03 14:56 | CTR_ITS ---
PROCEDURE INFORMATION: Exam: CT Head Without Contrast Exam date and time: 04/03/2021 2:56 PM Age: 61 years old Clinical indication: Altered mental status/memory loss; Additional info: Exp aphasia TECHNIQUE: Imaging protocol: Computed tomography of the head without contrast. Total images: 416 Radiation optimization: All CT scans at this facility use at least one of these dose optimization techniques: automated exposure control; mA and/or kV adjustment per patient size (includes targeted exams where dose is matched to clinical indication); or iterative reconstruction. COMPARISON: CT head wo con* [id number] 03/07/2021 7:51 PM RADIATION DOSE METRICS: Total DLP (mGy-cm): 2910.53 FINDINGS: Brain: Examination reveals a large left frontal and frontoparietal subdural hematoma that appears early subacute in age. Maximum depth of the subdural hematoma upwards of 24 mm. Total area of involvement approximately 10.3 cm in the AP plane by 8.1 cm in the coronal plane. Considerable mass effect. Effacement left lateral ventricle and frontal horn. Midline shift upwards of 14 mm. Associated generalized cerebral edema with sulcal effacement bilaterally. Suspected early subfalcine herniation. At time of examination no definite visible evidence of transtentorial herniation. Cerebral ventricles: See Brain finding. Paranasal sinuses: Visualized sinuses are unremarkable. No fluid levels. Mastoid air cells: Visualized mastoid air cells are well aerated. Bones/joints: No visible acute osseous abnormality. No visible full skull fracture. Soft tissues: Unremarkable. Other findings: Motion artifact. CT/CT head wo con* [id number] IMPRESSION: 1. Examination reveals a large left frontal and frontoparietal subdural hematoma that appears early subacute in age. 2. Maximum depth of the subdural hematoma upwards of 24 mm. Total area of involvement approximately 10.3 cm in the AP plane by 8.1 cm in the coronal plane. 3. Considerable mass effect. Effacement left lateral ventricle and frontal horn. Midline shift upwards of 14 mm. 4. Associated generalized cerebral edema with sulcal effacement bilaterally. 5. Suspected early subfalcine herniation. 6. At time of examination no definite visible evidence of transtentorial herniation. Radiation Dose CTDIVOL = (mGy): DLP = 2910.53 (mGy-cm)
--- NOTE | 2021-04-03 14:57 | XR_ITS ---
WS: [id number] XR chest 1V portable [id number] REASON FOR EXAM: Tachypnea FINDINGS: Status post sternotomy. Mild tortuosity and ectasia of the thoracic aorta without focal aneurysmal di latation. The heart is not significantly enlarged. Small area of linear atelectasis in the right lung base. Previous examination of 02/17/2021 there. Appears to be interstitial lung opacity in the left lower rosalba ng. The bony thorax is intact. XR/XR chest 1V portable [id number] IMPRESSION: Abnormality in the left lower lung which may represent an early pneumonitis.
--- NOTE | 2021-04-03 15:07 | PM.NPN ---
Subjective NPU Subjective: Interval history: Deepali presents today continuing to be subdued compared to her previous presentations prior to the last few days. Some psychomotor retardation with concerns of Abilify possibly being too high we discussed the risk benefits and alternatives of dropping her back to 10 mg p.o. every morning and she understood agreed proceed as documented in his note. She was sitting to require more assistance according to staff and continued to not be as active. The rash on her face has seemingly subsided. We discussed having hospitalist evaluate for concerns of her current presentation. Mental Status Exam MSE Comments: This is an obese versus morbidly obese white female in hospital scrubs with adequate grooming and appropriate eye contact. No abnormal movements except for continued psychomotor retardation. Cooperative with exam in no acute distress. Speech was somewhat decreased rate and volume. Mood described as fine, affect more subdued. Thought process organized. Thought content: Patient denied suicidal or homicidal ideation, there are no delusions reported or noted, she denied auditory or visual hallucinations. Attention and concentration appeared intact and memory seems more reliable but none were formally tested. She is alert and oriented x3. Insight and judgment appear limited, but improving impulse control appears limited. Vitals/I&O/Wt Last Vital Signs Temp 98.4 F 04/03/21 14:00 Pulse 105 H 04/03/21 14:00 Resp 18 04/03/21 14:00 BP 105/59 04/03/21 14:00 Pulse Ox 98 04/03/21 14:00 Data NPU : 04/03/21 15:20 04/03/21 15:20 A&P Additional A&P Information (1) Bilateral lower extremity edema: (2) Bipolar affective, mixed, sev w/ psych: (3) COVID-19: (4) Acute psychosis: (5) Type 2 diabetes mellitus: (6) Atrial fibrillation: (7) Cellulitis: (8) Atherosclerosis of coronary artery of [place] heart without angina pectoris: (9) Chronic anticoagulation: (10) Essential hypertension: Ivette Wheeler is a 61 carlitos old female who presented to the [facility] ED a few hours after being discharged from the neuropsychiatric unit. She continues to have psychosis and erratic behavior, and to put herself in dangerous situations with seemingly very impulsive behavior. RECOMMENDATION AND PLAN: 1. Continue current medication. Decrease Abilify to 10 mg p.o. nightly and consider possible medication for EPS. 2. Continue every 15 minute checks for safety. 3. Encourage individual, group and milieu therapies. 4. Will follow hospitalist's recommendations on medical comorbidities. 5. Need to develop an adequate plan for discharge to the community. 6. She is on a guardianship hold. 7. Request hospitalist to come and reexamine her to make sure she is still medically stable. Involuntary Hold Information 96 Hour Hold: 96 Hour Involuntary Admission: Yes 96 Hour Hold Ending Date: 03/27/21 96 Hour Hold Ending Time: 07:23 Attestations NPU Medical Necessity Statement*: Inpatient hospitalization is medically necessary and the clinically appropriate intervention at this time. We will monitor medications and make changes as indicated. Likely length of stay 10-14 days. She is in need of guardianship and we will wait for her hearing date. Coding Level of Care Code Acute Moderate Needs Teacher for Jimmie Arias
[2021-04-03 15:35] LABS: Basophils # 0.1 10^3/uL (0.0-0.1); Basophils % 0.8 %; Eosinophils # 0.2 10^3/uL (0.0-0.8); Eosinophils % 2.8 %; Hematocrit 35.3 % (37.0-47.0); Hemoglobin 10.8 g/dL (11.5-15.3); Lymphocytes # 1.2 10^3/uL (0.8-4.8); Lymphocytes % 19.6 %; Mean Corpuscular HGB Conc 30.6 g/dL (30.0-36.0); Mean Corpuscular Hemoglobin 27.8 pg (28.0-34.0); Mean Corpuscular Volume 90.7 fl (81-99); Mean Platelet Volume 10.8 fL (7.4-10.4); Monocytes # 0.8 10^3/uL (0.2-0.9); Monocytes % 13.5 %; Neutrophils # 3.89 10^3/uL (1.8-7.7); Neutrophils % 63.1 %; Nucleated Red Blood Cells % 0 %; Platelet Count 211 10^3/cmm (130-400); Red Blood Count 3.89 10^6/uL (4.1-5.3); Red Cell Distribution Width 15.8 % (12.1-15.1); White Blood Count 6.2 10^3/uL (4.0-10.0)
[2021-04-03 15:55] LABS: Ammonia 24 umol/L (11-51)
[2021-04-03] MEDS: diphenhydrAMINE 50 mg/mL SDV 1mL IM (15:55)
[2021-04-03] MEDS: benztropine 1 mg Tablet PO (15:55)
[2021-04-03 15:59] LABS: Alanine Aminotransferase 8 U/L (0-33); Albumin Level 3.4 g/dL (3.5-5.2); Alkaline Phosphatase 42 IU/L (35-105); Anion Gap 15.5 (5-19); Aspartate Amino Transferase 14 U/L (0-32); Blood Urea Nitrogen 9 mg/dL (8-23); Calcium 8.8 mg/dL (8.5-10.5); Carbon Dioxide 25 mmol/L (22-29); Chloride 99 mmol/L (98-107); Globulin 2.6 g/dL (1.3-4.6); Glomerular Filtration Rate 101.3 mL/min (90-130); Glucose 89 mg/dL (65-115); Osmolality Calculated 280 mOsm/kg (285-295); Potassium 3.5 mmol/L (3.5-5.1); Sodium 136 mmol/L (136-145); Total Bilirubin 0.7 mg/dL (0.15-1.2)
--- NOTE | 2021-04-03 17:12 | PC.NURSE ---
Pt afternooon medications held due to anticipation of NPO and transfer to high level of care.
[2021-04-03 17:17] LABS: Prolactin 2.73 ng/mL (4.8-23.3); Vitamin B12 295 pg/mL (232-1245)
[2021-04-03 17:22] LABS: ABG PCO2 39.3 mmHg (35-45); ABG PH Result 7.46 (7.35-7.45); Arterial Blood Gas Hematocrit 34.7 % (37-47); Base Excess ABG 3.9 mmol/L (-2.0-2.0); Blood Gas Allen Test Pos; Blood Gas Operator Identificat glc; Blood Gas Sample Site Radial, left; Blood Gas Sample Type Arterial; Oxygen Device ROOM AIR; PO2 ABG 70.2 mmHg (80.0-100.0)
[2021-04-03] MEDS: dexamethasone 10 mg/mL INJ IM (17:22)
--- NOTE | 2021-04-03 18:37 | PC.NURSE ---
PATIENT CONDITION Dr Motley saw patient per Dr Heller and ordered labs and head ct due to patient condition changing. Her gait was with assist only, her speech was slurred and her thoughts were not connecting. Was notified of abnormalities in head CT and efforts were being made to get patient off NPU and to an ICU bed here or other facilities. Patient monitored by staff frequently while on unit. HOB 45 degree angle. supervisor quilting present. ICU nurses present. NPU tabulating supervisor notified. Report given to [facility] ICU. Dr Motley given family contact information. At shift change patient still on floor and an ICU bed in house is being prepared. Patient remains stable.
--- NOTE | 2021-04-03 18:47 | PC.NURSE ---
Patient off unit to ICU with 2 ICU nurses and laborer cook house.
[2021-04-03] MEDS: LORazepam 2 mg/mL INJ 1 mL IVP ×2 (20:00→23:54)
[2021-04-03] MEDS: factor xa, inactivated-zhzo 400 MG in empty flexible container 1 EACH, non-DEHP filter ... 180 MG IV (20:59)
--- NOTE | 2021-04-03 21:00 | P.PNCC_ITS ---
Critical Care Event Note Critical Care Event The high probability of a clinically significant, sudden or life threatening deterioration of the patient's [] system(s) required my full and direct attention, intervention and personal management. The critical care time is as shown. This time is in addition to time spent performing any reported procedures but includes the following: [x] Data and vital sign review and interpretation [x] Patient assessment, examination and intervention [x] Documentation [x] Medication orders and management Critical Care Time Critical Care Time: Code activated: No Critical Care Time (min): 0 Procedures Central Line Placement^ Left Femoral: Time out performed: Yes Patient placed on monitor/pulse ox: Yes MD prep: mask, gown and gloves Central line prep: Povidone-Iodine 1% Local anesthesia used: lidocaine 1% Amount of anesthesia used (ml): 5 Ultrasound used for placement: Yes Central line lumen inserted: triple Post procedure: sutured in place, good blood return, all ports aspirated, flushed, capped and sterile dressing applied Post procedure x-ray: tip of catheter in good position Patient tolerated procedure: well Complications: none Coding Level of Care Code Acute Sales Center Manager for Jimmie Arias
[2021-04-03] MEDS: diphenhydrAMINE 50 mg Capsule PO (21:08)
--- NOTE | 2021-04-03 21:08 | PC.NURSE ---
Central line attempted by dr Motley and Jose, unable to obtain access, central line placed by Dr. Nick, unable to give scheduled medications on time due to no IV access and/or in procedure for central line HCP aware, v.o. from Dr. Garcia to jourdan pineda, give ordered factor xa and keep systolic BP less than 140
[2021-04-03] MEDS: labetalol 5 mg/mL SDV 20mL 10 MG IVP (21:12)
--- NOTE | 2021-04-03 21:42 | PC.NURSE ---
Dr. Garcia gave v.o. to hold waldo
--- NOTE | 2021-04-03 21:43 | PC.NURSE ---
[facility] accepted patient, awaiting bed number at this time
[2021-04-03] MEDS: factor xa, inactivated-zhzo 480 MG in empty flexible container 1 EACH, non-DEHP filter ... 24 MG IV (21:55)
--- NOTE | 2021-04-03 22:29 | PC.NURSE ---
Report called to [facility] Neuro ICU nurse Poppy, going to bed 18
--- NOTE | 2021-04-03 22:31 | PC.NURSE ---
patient and family notified of bed at [facility], patient belongings given to family
--- NOTE | 2021-04-03 23:45 | PC.NURSE ---
this nurse was notified that air ambulance declined, ground ambulance requested
[2021-04-04] VITALS: BP 125/82; PULSE 128; RESP 25; O2SAT 97
[2021-04-04 00:30] VITALS: BP 169/94
--- NOTE | 2021-04-04 00:32 | PC.NURSE ---
patient SAMMIE at this time via [facility], family at bedside
--- NOTE | 2021-04-04 00:35 | PC.NURSE ---
[facility] notified that EMS left with patient
[2021-04-04 00:56] VITALS: BP 169/102; PULSE 120; RESP 24; O2SAT 95
--- NOTE | 2021-04-04 07:58 | PM.TDS ---
Transfer Summary Providers Date of Admission: 03/20/21 21:36 Date of Discharge: 04/04/21 Attending Provider at Admission: Justin Landa MD Attending Provider at Transfer: Beinvenido Heller MD Primary Care Provider: Yaw Sinclair MD Anticipated Date of Transfer: Anticipated date of transfer: 04/04/21 Receiving Facility & Provider: Receiving Provider: [] Receiving facility: [] Diagnoses at Discharge Discharge Diagnosis (1) Extrapyramidal and movement disorder: Status: Acute (2) Bilateral lower extremity edema: Status: Acute (3) Bipolar affective, mixed, sev w/ psych: Status: Acute (4) Type 2 diabetes mellitus: Status: Acute (5) Atrial fibrillation: Status: Acute Qualifiers: Atrial fibrillation type: unspecified Qualified Code(s): I48.91 - Unspecified atrial fibrillation (6) Pneumonitis: Status: Acute Reason for Visit Reason for Visit: PSYCH EVAL Hospital Course Hospital Course Patient was admitted to neuropsychiatric unit for her psychiatric history. Hospitalist service was comanaging with neuropsych. Nurse called me on Tuesday 04/03 to evaluate the patient because she was not evaluated on Friday from hospitalist group. She was seen by Dr. Mckay on 03/31. Nurse was not sure who was seeing this patient after Dr. Huerta signed off. Accepted the consult and went to see the patient. I have not seen her during this hospitalization. Patient was struggling to find appropriate words during communication and her gait was shuffling in nature. There was no focal deficit. She was able to follow commands however she kept repeating most of her words. Suspicion was high for extrapyramidal symptoms because of her antipsychotics. I requested stroke work-up head CT came back positive for large left frontal frontoparietal subdural hematoma with 14 mm shift, she was immediately transferred to ICU, we had to transfer 1 patient from ICU to make room for her. Multiple calls were placed to trauma centers and outside hospitals, she was started on mannitol, central line was placed by the ER physician, her last Eliquis dose was given on 10 PM on 04/02. Eliquis reversal agent was given, pharmacy was consulted. [facility] accepted her and she was transferred by the sewage screen operator Dr. Huerta. Family was updated please see my consult note for further details. Physical Exam Narrative: EXAM NARRATIVE: Patient was laying comfortably in her bed awake and alert oriented to time place and person Her movements are very slow She is taking time to articulate however no slurring of speech noted She is taking baby steps while using a walker No focal deficit No facial asymmetry Able to follow commands however taking longer to answer No facial droop Pupils are equal I did not notice any tremors Variable S1-S2 Looks euvolemic Lower extremities with wrinkling of skin no active cellulitis As compared to previous exam edema seems to be improved Bilateral breath sounds with rhonchi with diminished breath sounds in the base Soft nontender distended abdomen TS Data Data Completed and Pending: Completed Studies During Hospitalization Category Date Time Status CT head wo con* 7 0450 Stat Cat Scan 04/03/21 14:56 Completed XR chest 1V [place] ble [id number] Stat Exams 04/03/21 14:57 Completed Labs from last 24 hours 04/03/21 04/03/21 04/03/21 17:15 15:20 15:20 WBC RBC Hgb Hct MCV MCH MCHC RDW Plt Count MPV Neut % (Auto) Lymph % (Auto) [place] % (Auto) Eos % (Auto) Baso % (Auto) Neut # (Auto) Lymph # (Auto) [place] # (Auto) Eos # (Auto) Baso # (Auto) Nucleated RBC % (a uto) Nucleated RBCs # Specimen Type Arterial Sample Site Radial, left ABG pH 7.46 H ABG pCO2 39.3 ABG pO2 70.2 L ABG HCO3 28.0 H ABG Base Excess 3.9 H Chin Test Pos Hematocrit 34.7 L O2 Delivery Device Room air FiO2 21.0 Wrong Address Clerk ID glc Sodium 136 Potassium 3.5 Chloride 99 Carbon Dioxide 25 Anion Gap 15.5 BUN 9 Creatinine 0.6 GFR Calculation 101.3 Glucose 89 POC Glucose Calculated Osmolal ity 280 L Calcium 8.8 Total Bilirubin 0.7 AST 14 ALT 8 Alkaline Phosphata se 42 Ammonia 24 Total Protein 6.0 L Albumin 3.4 L Globulin 2.6 Vitamin B12 295 Prolactin 2.73 L 04/03/21 04/03/21 15:20 11:22 WBC 6.2 RBC 3.89 L Hgb 10.8 L Hct 35.3 L MCV 90.7 MCH 27.8 L MCHC 30.6 RDW 15.8 H Plt Count 211 MPV 10.8 H Neut % (Auto) 63.1 Lymph % (Auto) 19.6 [place] % (Auto) 13.5 Eos % (Auto) 2.8 Baso % (Auto) 0.8 Neut # (Auto) 3.89 Lymph # (Auto) 1.2 [place] # (Auto) 0.8 Eos # (Auto) 0.2 Baso # (Auto) 0.1 Nucleated RBC % (a uto) 0 Nucleated RBCs # 0.0 Specimen Type Sample Site ABG pH ABG pCO2 ABG pO2 ABG HCO3 ABG Base Excess Chin Test Hematocrit O2 Delivery Device FiO2 Wrong Address Clerk ID Sodium Potassium Chloride Carbon Dioxide Anion Gap BUN Creatinine GFR Calculation Glucose POC Glucose 136 H Calculated Osmolal ity Calcium Total Bilirubin AST ALT Alkaline Phosphata se Ammonia Total Protein Albumin Globulin Vitamin B12 Prolactin Vitals: Last Vital Signs Temp 98.4 F 04/03/21 14:00 Pulse 120 H 04/04/21 00:56 Resp 24 H 04/04/21 00:56 BP 169/102 04/04/21 00:56 Pulse Ox 95 04/04/21 00:56 TS Medications Medications Home Medications pantoprazole 40 mg PO BID #60 tab 02/11/21 [Rx Confirmed 03/20/21] clopidogrel 75 mg PO DAILY 30 Days #30 tab 03/02/21 [Rx Confirmed 03/20/21] Advair Diskus 1 puff INHALATION BID 03/20/21 [History Confirmed 03/20/21] bacitracin 1 applic TOPICAL TID 03/20/21 [History Confirmed 03/20/21] diltiazem HCl 180 mg PO DAILY 03/20/21 [History Confirmed 03/20/21] doxycycline hyclate 100 mg PO DAILY 03/20/21 [History Confirmed 03/20/21] fenofibrate nanocrystallized 145 mg PO DAILY #30 tab 03/20/21 [Rx Confirmed 03/20/21] furosemide 40 mg PO DAILY@0800 #30 tab 03/20/21 [Rx Confirmed 03/20/21] levothyroxine [Euthyrox] 150 mcg PO DAILY #30 tab 03/20/21 [Rx Confirmed 03/20/21] metformin 750 mg PO BID 03/20/21 [History Confirmed 03/20/21] nystatin [Nystop] 1 applic TOPICAL 0900,2100 #30 g 03/20/21 [Rx Confirmed 03/20/21] omega-3 fatty acids [Fish Oil Concentrate] 1,000 mg PO BID #60 cap 03/20/21 [Rx Confirmed 03/20/21] paroxetine HCl 10 mg PO DAILY 03/20/21 [History Confirmed 03/20/21] potassium chloride 10 meq PO DAILY #30 tab 03/20/21 [Rx Confirmed 03/20/21] sennosides [Senna Lax] 8.6 mg PO 0900,2099 #60 tab 03/20/21 [Rx Confirmed 03/20/21] sertraline 50 mg PO DAILY #30 tab 03/20/21 [Rx Confirmed 03/20/21] sotalol 80 mg PO BID@0900,2100 03/20/21 [History Confirmed 03/20/21] warfarin 4 mg PO TID 03/20/21 [History Confirmed 03/20/21] Active Medications Acetaminophen (Acetaminophen 325 Mg Tablet) 650 mg PO Q4H PRN PRN Reason: MILD PAIN Last Admin: 04/01/21 12:00 Dose: 650 mg Documented by: Benzocaine (Cetylpyridinium Lozenge) 1 each MUCOUS MEM Q2H PRN PRN Reason: SORE THROAT Last Admin: 03/28/21 20:07 Dose: 1 each Documented by: Benztropine Mesylate (Benztropine 1 Mg Tablet) 1 mg PO BID ON LICENSE OF [facility] Stop: 04/05/21 09:00 Last Admin: 04/03/21 17:11 Dose: Not Given Documented by: Camphor/Menthol/Phenol (Blistex Lip Oint 7 Gm Tube) 1 applic TOPICAL Q1H PRN PRN Reason: DRYNESS Dextrose (Dextrose 50% Syringe 50 Ml) 25 ml IVP ONCE PRN; Protocol PRN Reason: hypoglycemia protocol Dextrose (Dextrose 50% Syringe 50 Ml) 50 ml IVP PRN PRN; Protocol PRN Reason: hypoglycemia protocol Diltiazem HCl (Diltiazem 60 Mg Tablet) 60 mg PO Q6H AGNES Last Admin: 04/03/21 17:10 Dose: Not Given Documented by: Diphenhydramine HCl (Diphenhydramine 50 Mg Capsule) 50 mg PO Q4H AGNES Stop: 04/05/21 09:00 Last Admin: 04/03/21 21:08 Dose: 50 mg Documented by: Doxycycline Monohydrate (Doxycycline 100 Mg Tablet) 100 mg PO 899,2099 ON LICENSE OF [facility]; Protocol Last Admin: 04/03/21 22:05 Dose: 100 mg Documented by: Furosemide (Furosemide 20 Mg Tablet) 20 mg PO Q24H AGNES Glucagon (Glucagon 1 Mg/Ml Inj 1 Ml) 1 mg IM ONCE PRN; Protocol PRN Reason: Adult Acute Hypoglycemia Prot. Haloperidol (Haloperidol 5 Mg Tablet) 5 mg PO Q4H PRN PRN Reason: AGITATION Hydrocortisone (Hydrocortisone 2.5% Cream 28 Gm) 1 applic TOPICAL QID PRN PRN Reason: ITCHING Last Admin: 03/28/21 20:07 Dose: 1 applic Documented by: Dextrose (D5w) 500 mls @ 100 mls/hr IV ONCE PRN; Protocol PRN Reason: Adult Acute Hypoglycemia Prot Levetiracetam 750 mg/ Sodium (Chloride) 107.5 mls @ 430 mls/hr IV Q12H AGNES Last Admin: 04/03/21 21:39 Dose: Not Given Documented by: Insulin Aspart (Insulin Aspart 100 Unit/1 Ml) 0 unit SUBCUT TIDWM AGNES; Protocol Last Admin: 04/03/21 17:09 Dose: Not Given Documented by: Labetalol HCl (Labetalol 5 Mg/Ml Sdv 20ml) 10 mg IVP Q3H PRN PRN Reason: keep bp<140/80 Last Admin: 04/03/21 21:12 Dose: 10 mg Documented by: Levothyroxine Sodium (Levothyroxine 150 Mcg Tablet) 150 mcg PO DAILY ON LICENSE OF [facility] Last Admin: 04/03/21 09:23 Dose: 150 mcg Documented by: Loperamide HCl (Loperamide 2 Mg Capsule) 2 mg PO Q6H PRN PRN Reason: DIARRHEA Lorazepam (Lorazepam 2 Mg/Ml Inj 1 Ml) 2 mg IVP Q4H PRN PRN Reason: ANXIETY Last Admin: 04/03/21 23:54 Dose: 2 mg Documented by: Magnesium Oxide (Magnesium Oxide 400 Mg Tablet) 400 mg PO BID ON LICENSE OF [facility] Last Admin: 04/03/21 17:11 Dose: Not Given Documented by: Nicotine (Nicotine 21 Mg Patch) 1 patch TRANSDERMA DAILY PRN PRN Reason: NICOTINE WITHDRAWAL Nystatin (Nystatin Powder 15 Gm Btl) 1 applic TOPICAL BID AGNES Last Admin: 04/03/21 21:41 Dose: Not Given Documented by: Olanzapine (Olanzapine 5 Mg Odt) 5 mg PO Q4H PRN PRN Reason: Agitation/Psychosis Last Admin: 03/21/21 20:22 Dose: 5 mg Documented by: [place]-4-Ropr Ethyl Esters ([place]-3 Fatty Acids 1,000 Mg Capsule) 1,000 mg PO DAILY ON LICENSE OF [facility] Last Admin: 04/03/21 09:23 Dose: 1,000 mg Documented by: Ondansetron HCl (Ondansetron 4 Mg Tablet) 4 mg PO Q6H PRN PRN Reason: NAUSEA AND VOMITING Pantoprazole Sodium (Pantoprazole Dr 40 Mg Tablet) 40 mg PO 899,2099 ON LICENSE OF [facility] Last Admin: 04/03/21 22:04 Dose: Not Given Documented by: Potassium Chloride (Potassium Chloride Er 10 Meq Tablet) 10 meq PO Q12H ON LICENSE OF [facility] Last Admin: 04/03/21 22:42 Dose: Not Given Documented by: Senna (Sennosides 8.6 Mg Tablet) 8.6 mg PO 899,2099 ON LICENSE OF [facility] Last Admin: 04/03/21 22:03 Dose: Not Given Documented by: Sertraline HCl (Sertraline 50 Mg Tablet) 50 mg PO DAILY ON LICENSE OF [facility] Last Admin: 04/03/21 09:23 Dose: 50 mg Documented by: Sotalol HCl (Sotalol 80 Mg Tablet) 80 mg PO BID@899,2099 ON LICENSE OF [facility] Last Admin: 04/03/21 09:22 Dose: 80 mg Documented by: Zinc Acetate/Diphenhydramine (Diphenhydramine Cream 30 Gm) 1 applic TOPICAL Q4H PRN PRN Reason: RASH Last Admin: 03/30/21 04:03 Dose: 1 gm Documented by: Discharge Plan Discharge Patient Disposition: Xfer Other Condition: Stable Prescriptions: No Action pantoprazole 40 mg Tablet,Delayed Release (Dr/Ec) 40 mg PO BID Qty: 60 RF: 0 clopidogrel 75 mg Tablet 75 mg PO DAILY 30 Days Qty: 30 RF: 1 furosemide 40 mg Tablet 40 mg PO DAILY@0800 Qty: 30 RF: 0 nystatin [Nystop] 100,000 unit/gram Powder 1 applic topical 899,2099 Qty: 30 RF: 0 sennosides [Senna Lax] 8.6 mg Tablet 8.6 mg PO 899,2099 Qty: 60 RF: 0 sertraline 50 mg Tablet 50 mg PO DAILY Qty: 30 RF: 0 omega-3 fatty acids [Fish Oil Concentrate] 1,000 mg capsule 1,000 mg PO BID Qty: 60 RF: 0 potassium chloride 10 mEq tablet extended release 10 meq PO DAILY Qty: 30 RF: 0 levothyroxine [Euthyrox] 150 mcg tablet 150 mcg PO DAILY Qty: 30 RF: 0 fenofibrate nanocrystallized 145 mg tablet 145 mg PO DAILY Qty: 30 RF: 0 doxycycline hyclate 100 mg Capsule 100 mg PO DAILY RF: 0 paroxetine HCl 10 mg tablet 10 mg PO DAILY RF: 0 diltiazem HCl 180 mg capsule,extended release 24hr 180 mg PO DAILY RF: 0 metformin 750 mg tablet extended release 24 hr 750 mg PO BID RF: 0 warfarin 4 mg PO TID RF: 0 Advair Diskus 250-50 mcg/dose blister with device 1 puff inhalation BID RF: 0 sotalol 80 mg tablet 80 mg PO BID@0900,2100 RF: 0 bacitracin 500 unit/gram ointment 1 applic topical TID RF: 0 Discharge Orders: Discharge Order (Routine); Ordered 04/04/21 Ordered By: Kash Motley Patient Instructions: Opioid Safety Transfer Attestations Time Spent in Transfer Care*: greater than 30 min Status at Transfer: Cognitive status at transfer: cognitively intact, Behavioral status at transfer: cooperative, Quality Metrics Clinical Quality Measures: During this hospital stay, did patient experience: Stroke Contraindication to Antithrombotic: Medical contraindication Contraindication to Anticoagulation: Medical contraindication Contraindication to Statin: Medical contraindication Coding Level of Care Code Acute Soft Iron Inspector for [facility] Fwd Diagnoses Extrapyramidal and movement disorder G25.9 Bilateral lower extremity edema R60.0 Bipolar affective, mixed, sev w/ psych F31.64 Type 2 diabetes mellitus E11.9 Atrial fibrillation I48.91 Atrial fibrillation type: unspecified Pneumonitis J18.9
--- NOTE | 2021-04-04 09:07 | PC.NURSE ---
00:30 transferred to [facility]
--- NOTE | 2021-04-05 09:36 | PC.SOCIAL ---
follow up call made, spoke with [facility] patients nurse, Neuro ICU. She reports pt is doing good, she will have surgery on Friday due to having to wait because pt had taken Plavix.
== END 2021-04-04 00:35 | disposition short-term general hospital (02) | DRG 885 ==
LOC: ER 18:22 → NP 22:20 → ICU 04-04 01:20
PROVIDERS: Internal Medicine; Admitting Provider Psychiatry & Neurology Child & Adolescent Psychiatry; Emergency Provider Emergency Medicine; Family Provider Family Medicine; PCP Family Medicine; Visit Provider Psychiatry & Neurology Psychiatry
DX: F31.64 Bipolar disorder, current episode mixed, severe, with psychotic features (principal); I50.33 Acute on chronic diastolic (congestive) heart failure; J18.9 Pneumonia, unspecified organism; I62.00 Nontraumatic subdural hemorrhage, unspecified; I48.20 Chronic atrial fibrillation, unspecified; G25.9 Extrapyramidal and movement disorder, unspecified; W19.XXXA Unspecified fall, initial encounter; Z86.16 Personal history of COVID-19; I25.10 Atherosclerotic heart disease of native coronary artery without angina pectoris; Z95.5 Presence of coronary angioplasty implant and graft; I11.0 Hypertensive heart disease with heart failure; E78.5 Hyperlipidemia, unspecified; Z86.718 Personal history of other venous thrombosis and embolism; I08.1 Rheumatic disorders of both mitral and tricuspid valves; I27.20 Pulmonary hypertension, unspecified; E11.9 Type 2 diabetes mellitus without complications; Z95.1 Presence of aortocoronary bypass graft; D50.9 Iron deficiency anemia, unspecified; I25.2 Old myocardial infarction; R00.0 Tachycardia, unspecified; E66.01 Morbid (severe) obesity due to excess calories; Z68.39 Body mass index [BMI] 39.0-39.9, adult; R26.89 Other abnormalities of gait and mobility; Z79.02 Long term (current) use of antithrombotics/antiplatelets; Z79.01 Long term (current) use of anticoagulants; Z79.84 Long term (current) use of oral hypoglycemic drugs; I87.8 Other specified disorders of veins
CPT/HCPCS: 36415; 36416; 36556; 36600; 70450; 71045; 80048; 80053; 80307; 82140; 82607; 82803; 82962; 83735; 83880; 84146; 85025; 85610; 93005; 96372; 96374; 96375; 99285; J1100; J1200; J1630; J1815; J2060; J3490; J7040; J7169; Q0163

== ENCOUNTER 2021-04-19 17:11 | Inpatient (IN) | payer OTHER, SELFPAY ==
[2021-04-19 17:23] VITALS: BMI 37.4
[2021-04-19 17:32] VITALS: BP 112/75; PULSE 103; RESP 16; TEMP 37.2; O2SAT 97
[2021-04-19 17:41] LABS: Glucose Point of Care 81 mg/dL (70-110)
--- NOTE | 2021-04-19 17:43 | PM.HP ---
Providers/Chief Complaint Admitting Physician: Jamie Vega MD Primary Care Provider: Yaw Sinclair MD Chief Complaint: Tramatic Subdual Hematoma, Encephalopathy, AFib History of Present Illness Ivette Wheeler is a 61 year old female with past medical history of coronary artery disease status post stent, CABG, HFrEF, A. fib (was on Eliquis has been held due to recent history of subdural hematoma), htn,dvt, COVID -19, DM,BPD, recent large left frontal and frontoparietal subdural hematoma secondary to fall (received adenaxate alpha ) s/p left bur hole drainage. Has been accepted as a direct admission after being transferred from [facility]. Upon arrival patient was seen and examined. Currently she is stating that after a long 5-hours journey she feels tired, denies any chest pain, shortness of breath, headache, nausea, vomiting, fever, cough, weakness. Dr. Landa from psychiatry has been consulted, for possible transfer to Neuropsych Unit, once the patient is medically stable.Psychiatry is likely pursuing guardianship. Review of Systems Const: Denies: fever(s), chills, body aches, change in appetite or diaphoresis Card: Denies: palpitations, edema, swelling of feet/ankles, dyspnea on exertion, orthopnea or leg pain with exertion Resp: Denies: dyspnea, productive cough, wheezing or pain on inspiration GI: Denies: abdominal pain, nausea, vomiting, diarrhea or constipation : Denies: flank pain Musc: Denies: back pain, extremity pain or extremity swelling Neuro: Denies: headache(s), difficulty walking or confusion Medications/Allergies Home Medications Medication Instructions Recorded Confirmed Last Taken Type pantoprazole 40 mg PO BID #60 tab 02/11/21 03/20/21 Unknown Rx clopidogrel 75 mg PO DAILY 30 Days #30 tab 03/02/21 03/20/21 Unknown Rx Advair Diskus 1 puff INHALATION BID 03/20/21 03/20/21 Unknown History bacitracin 1 applic TOPICAL TID 03/20/21 03/20/21 Unknown History diltiazem HCl 180 mg PO DAILY 03/20/21 03/20/21 Unknown History doxycycline hyclate 100 mg PO DAILY 03/20/21 03/20/21 Unknown History fenofibrate nanocrystallized 145 mg PO DAILY #30 tab 03/20/21 03/20/21 02/08/21 Rx furosemide 40 mg PO DAILY@0800 #30 tab 03/20/21 03/20/21 Unknown Rx levothyroxine [Euthyrox] 150 mcg PO DAILY #30 tab 03/20/21 03/20/21 02/08/21 Rx metformin 750 mg PO BID 03/20/21 03/20/21 Unknown History nystatin [Nystop] 1 applic TOPICAL 899,2100 #30 g 03/20/21 03/20/21 Unknown Rx omega-3 fatty acids [Fish Oil 1,000 mg PO BID #60 cap 03/20/21 03/20/21 01/22/21 06:00 Rx Concentrate] paroxetine HCl 10 mg PO DAILY 03/20/21 03/20/21 Unknown History potassium chloride 10 meq PO DAILY #30 tab 03/20/21 03/20/21 02/08/21 Rx sennosides [Senna Lax] 8.6 mg PO 0900,2100 #60 tab 03/20/21 03/20/21 Unknown Rx sertraline 50 mg PO DAILY #30 tab 03/20/21 03/20/21 Unknown Rx sotalol 80 mg PO BID@0900,2100 03/20/21 03/20/21 Unknown History warfarin 4 mg PO TID 03/20/21 03/20/21 Unknown History Allergies Allergy/AdvReac Type Severity Reaction Status Date / Time atorvastatin [From Lipitor] Allergy Unknown Verified 02/27/21 17:47 lisinopril Allergy Unknown Verified 02/27/21 17:47 PFSH Acute PFSH: Medical History (Updated 04/19/21 @ 18:00 by Jamie Vega MD) ASHD (arteriosclerotic heart disease) Atherosclerosis of coronary artery of [place] heart without angina pectoris Atrial fibrillation Cellulitis CHF (congestive heart failure) Chronic anticoagulation Eliquis COVID-19 January Dyslipidemia Essential hypertension Hx of deep venous thrombosis Mitral valve regurgitation Pulmonary hypertension Tricuspid valve regurgitation Type 2 diabetes mellitus Surgical History History of coronary artery bypass graft 2005 History of coronary artery stent placement History of total vaginal hysterectomy History of tubal ligation Status post colonoscopy Family History Other CAD (coronary artery disease) Diabetes Hypertension Social History Smoking and tobacco status: never smoked Alcohol intake: current Alcohol intake frequency: holidays/special occasions only Household members: significant other Marital status: Single Vitals/I&O/Wt Weight last 48 hrs Weight 98.883 kg Physical Exam Const: COMMON NORMALS: patient oriented x3 HENMT: COMMON NORMALS: normocephalic OTHER: left parietal suture line clean and intact Eye: COMMON NORMALS: no scleral icterus GENERAL EYE: appearance normal, both eyes and all related structures Chest: CHEST: Yes Symmetrical chest wall rise Resp: COMMON NORMALS: normal respiratory effort and clear to auscultation bilaterally AUSCULTATION: clear to auscultation bilaterally Cardio: COMMON NORMALS: No gallops present (Cardio), No murmurs present (Cardio), No rub (Cardio) and Peripheral pulses 2+ throughout RATE: regular rate RHYTHM: regular rhythm HEART SOUNDS: S1 normal heart sound present and S2 normal heart sound present PERIPHERAL PULSES: Peripheral pulses 2+ throughout OTHER: Irregularly irregular rhythm, S1-S2 variable intensity GI: COMMON NORMALS: Normal to inspection, nondistended, normoactive bowel sounds present, Soft to palpation, non-tender, No hepatosplenomegaly present and no masses AUSCULTATION: Yes normoactive bowel sounds PALPATION: Yes Soft to palpation and Yes No hepatosplenomegaly present RECTAL EXAM: deferred Extremity: COMMON NORMALS: no clubbing, cyanosis or edema and no pedal edema Neuro: COMMON NORMALS: patient oriented x3 A&P Assessment and plan (1) Atrial fibrillation: Currently rate controlled: Continue diltiazem 180 mg po daily Sotalol 80 mg p.o. twice daily Continue telemetry Currently she is not a candidate of anticoagulation, as she recently had a subdural hematoma. Status: Acute Qualifiers: Atrial fibrillation type: unspecified Qualified Code(s): I48.91 - Unspecified atrial fibrillation (2) Subdural hematoma: Patient was seen by neurosurgery at [facility], their plan is to do a repeat CT head without contrast in 4 weeks time to decide on the future course of long-term anticoagulation given her history of A. fib as well as DVT. They also plan to see her in 3 to 4 weeks for suture removal. Status: Acute (3) CHF (congestive heart failure): HFrEF currently compensated. Monitor intake output Daily weight I/O charting Resume Lasix 40 mg p.o. daily K>4, MG>2 Status: Acute Qualifiers: Heart failure type: diastolic Heart failure chronicity: chronic Qualified Code(s): I50.32 - Chronic diastolic (congestive) heart failure (4) Type 2 diabetes mellitus: LDSSI FSG Carbohydrate consistent diet Status: Acute (5) Essential hypertension: Status: Acute (6) Pulmonary hypertension: Status: Acute (7) Bipolar affective, mixed, sev w/ psych: Psych on board. Appreciate recommendation Status: Acute Additional A&P Information CODE STATUS: Full code DVT prophylaxis: Lovenox 30 mg sc daily Attestations Medical Necessity Statement*: Patient needs to be in hospital for, pursuing guardianship, and safe discharge. Coding Level of Care Code Acute Nuclear Supervising Operator for [facility] Diagnoses Atrial fibrillation I48.91 Atrial fibrillation type: unspecified Subdural hematoma S06.5X9A CHF (congestive heart failure) I50.32 Heart failure type: diastolic Heart failure chronicity: chronic Type 2 diabetes mellitus E11.9 Essential hypertension I10 Pulmonary hypertension I27.20 Bipolar affective, mixed, sev w/ psych F31.64
[2021-04-19] MEDS: sotalol 80 mg Tablet PO (18:31)
[2021-04-19] MEDS: pantoprazole DR 40 mg Tablet PO (18:31)
[2021-04-19 19:02] VITALS: BP 102/69; PULSE 107; RESP 20; TEMP 36.9; O2SAT 92
[2021-04-19 19:27] VITALS: PULSE 101; RESP 20; O2SAT 92
[2021-04-19] MEDS: dilTIAZem ER (24HR) 180 mg Capsule PO (20:40)
[2021-04-19 20:56] LABS: Glucose Point of Care 99 mg/dL (70-110)
[2021-04-19 23:20] VITALS: BP 113/63; PULSE 95; RESP 20; TEMP 36.4; O2SAT 92
[2021-04-19] MEDS: acetaminophen 325 mg Tablet 650 MG PO (23:21)
[2021-04-20] VITALS (8 sets, daily range): BP systolic 104–139; BP diastolic 57–80; PULSE 71–102; RESP 16–20; TEMP 36.4–37.1; O2SAT 89–95
[2021-04-20 05:59] LABS: Basophils # 0.1 10^3/uL (0.0-0.1); Eosinophils # 0.2 10^3/uL (0.0-0.8); Eosinophils % 3.8 %; Hematocrit 37.4 % (37.0-47.0); Hemoglobin 11.1 g/dL (11.5-15.3); Lymphocytes # 1.1 10^3/uL (0.8-4.8); Lymphocytes % 20.7 %; Mean Corpuscular HGB Conc 29.7 g/dL (30.0-36.0); Mean Corpuscular Hemoglobin 28.3 pg (28.0-34.0); Mean Corpuscular Volume 95.4 fl (81-99); Mean Platelet Volume 10.9 fL (7.4-10.4); Monocytes # 0.7 10^3/uL (0.2-0.9); Monocytes % 14.2 %; Neutrophils # 3.13 10^3/uL (1.8-7.7); Neutrophils % 60.1 %; Nucleated Red Blood Cells % 0 %; Platelet Count 172 10^3/cmm (130-400); Red Blood Count 3.92 10^6/uL (4.1-5.3); Red Cell Distribution Width 16.9 % (12.1-15.1); White Blood Count 5.2 10^3/uL (4.0-10.0)
[2021-04-20 06:16] LABS: Alanine Aminotransferase 9 U/L (0-33); Albumin Level 3.2 g/dL (3.5-5.2); Alkaline Phosphatase 61 IU/L (35-105); Anion Gap 13.7 (5-19); Aspartate Amino Transferase 12 U/L (0-32); Blood Urea Nitrogen 5 mg/dL (8-23); Calcium 8.7 mg/dL (8.5-10.5); Carbon Dioxide 31 mmol/L (22-29); Chloride 104 mmol/L (98-107); Globulin 2.8 g/dL (1.3-4.6); Glomerular Filtration Rate 225.4 mL/min (90-130); Glucose 107 mg/dL (65-115); Magnesium 1.9 mg/dL (1.7-2.3); Osmolality Calculated 298 mOsm/kg (285-295); Potassium 3.7 mmol/L (3.5-5.1); Sodium 145 mmol/L (136-145); Total Bilirubin 0.8 mg/dL (0.15-1.2)
[2021-04-20 06:35] LABS: Glucose Point of Care 119 mg/dL (70-110)
[2021-04-20] MEDS: dilTIAZem ER (24HR) 180 mg Capsule PO (08:39)
[2021-04-20] MEDS: pantoprazole DR 40 mg Tablet PO ×2 (08:39→18:52)
[2021-04-20] MEDS: sertraline 50 mg Tablet PO (08:39)
[2021-04-20] MEDS: levothyroxine 150 mcg Tablet PO (08:39)
[2021-04-20] MEDS: PARoxetine 20 mg Tablet 10 MG PO (08:39)
[2021-04-20] MEDS: sotalol 80 mg Tablet PO ×2 (08:39→20:24)
[2021-04-20 10:49] LABS: Glucose Point of Care 132 mg/dL (70-110)
--- NOTE | 2021-04-20 12:09 | PC.PHAR ---
PT UNABLE TO VERIFY MEDICATIONS-MEDICATIONS ENTERED ARE MEDS THAT WERE ON THE PTS [facility] L[facility] HAS THAT THE CLOPIDOGREL AND WARFARIN WERE STOPPED-NOTES ARE MADE IN THE PHARMACY COMMENTS
--- NOTE | 2021-04-20 14:28 | P.PN_ITS ---
Subjective Subjective: Interval history: Patient was seen and examined this morning no acute events overnight. Continues to be in A. fib, heart rate is better controlled with medication. Currently taking p.o. meds, tolerating diet well. Medications: Reviewed: Yes Vitals/I&O/Wt Last Vital Signs Temp 98.5 F 04/20/21 11:01 Pulse 100 04/20/21 11:01 Resp 20 H 04/20/21 11:01 BP 135/80 04/20/21 11:01 Pulse Ox 95 04/20/21 11:01 04/19/21 04/20/21 04/20/21 22:59 06:59 14:59 Intake Total 60 / 60 540 / 540 Output Total 120 / 120 Balance -120 / -120 60 / -60 540 / 540 Weight last 48 hrs Weight 99.654 kg Weight 98.883 kg Physical Exam 2 Const: COMMON NORMALS: patient oriented x3 HENMT: COMMON NORMALS: normocephalic HEAD & SCALP: normocephalic OTHER: left parietal suture line clean and intact Eye: COMMON NORMALS: no scleral icterus GENERAL EYE: appearance normal, both eyes and all related structures Chest: CHEST: Yes Symmetrical chest wall rise Resp: COMMON NORMALS: normal respiratory effort and clear to auscultation bilaterally AUSCULTATION: clear to auscultation bilaterally Cardio: COMMON NORMALS: No gallops present (Cardio), No murmurs present ([place]), No rub (Cardio) and Peripheral pulses 2+ throughout PERIPHERAL PULSES: Peripheral pulses 2+ throughout OTHER: Irregularly irregular rhythm, S1-S2 variable intensity GI: COMMON NORMALS: Normal to inspection, nondistended, normoactive bowel sounds present, Soft to palpation, non-tender, No hepatosplenomegaly present and no masses AUSCULTATION: Yes normoactive bowel sounds PALPATION: Yes Soft to palpation and Yes No hepatosplenomegaly present RECTAL EXAM: deferred Extremity: COMMON NORMALS: no clubbing, cyanosis or edema and no pedal edema Neuro: COMMON NORMALS: patient oriented x3 Data : 04/20/21 05:48 04/20/21 05:48 A&P Assessment and plan (1) Atrial fibrillation: Currently rate controlled: Continue diltiazem 180 mg po daily Sotalol 80 mg p.o. twice daily Continue telemetry Currently she is not a candidate of anticoagulation, as she recently had a subdural hematoma. Status: Acute Qualifiers: Atrial fibrillation type: unspecified Qualified Code(s): I48.91 - Unspecified atrial fibrillation (2) Subdural hematoma: Patient was seen by neurosurgery at [facility], their plan is to do a repeat CT head without contrast in 4 weeks time to decide on the future course of long-term anticoagulation given her history of A. fib as well as DVT. They also plan to see her in 3 to 4 weeks for suture removal. Status: Acute (3) CHF (congestive heart failure): HFrEF currently compensated. Monitor intake output Daily weight I/O charting Resume Lasix 40 mg p.o. daily K>4, MG>2 Status: Acute Qualifiers: Heart failure type: diastolic Heart failure chronicity: chronic Qualified Code(s): I50.32 - Chronic diastolic (congestive) heart failure (4) Type 2 diabetes mellitus: LDSSI FSG Carbohydrate consistent diet Status: Acute (5) Essential hypertension: Status: Acute (6) Pulmonary hypertension: Status: Acute (7) Bipolar affective, mixed, sev w/ psych: Psych on board. Appreciate recommendation Status: Acute Additional A&P Information CODE STATUS: Full code DVT prophylaxis: Lovenox 30 mg sc daily Attestations Medical Necessity Statement*: Patient is awaiting guardianship, patient is medically cleared to be transferred to psych. Has no medical necessity to be in hospital. Refer to psych notes to establish the medical necessity for inpatient hospital stay. Coding Level of Care Code Acute Finish Machine Tender for [facility] Diagnoses Atrial fibrillation I48.91 Atrial fibrillation type: unspecified Subdural hematoma S06.5X9A CHF (congestive heart failure) I50.32 Heart failure type: diastolic Heart failure chronicity: chronic Type 2 diabetes mellitus E11.9 Essential hypertension I10 Pulmonary hypertension I27.20 Bipolar affective, mixed, sev w/ psych F31.64
--- NOTE | 2021-04-20 14:51 | P.CONIM_ITS ---
Providers/Reason for Consult Consulting Physican/Specialty*: Justin Landa MD/psychiatry Reason for Consult*: Manage psychiatric issues Attending Physician: Jamie Vega MD Primary Care Provider: Yaw Sinclair MD Psych Consult HPI History of Present Illness Ivette Wheeler is a 61 year old female with a history of bipolar disorder, psychosis and altered mental status as well as an extensive past medical history, including drainage of a recent subdural hematoma. She was transferred yesterday from [facility] in [place]. Dr. Vega's admission note states: Ivette Wheeler is a 61 year old female with past medical history of coronary artery disease status post stent, CABG, HFrEF, A. fib (was on Eliquis has been held due to recent history of subdural hematoma), htn,dvt, COVID -19, DM,BPD, recent large left frontal and frontoparietal subdural hematoma secondary to fall (received adenaxate alpha ) s/p left bur hole drainage. Has been accepted as a direct admission after being transferred from [facility]. Upon arrival patient was seen and examined. Currently she is stating that after a long 5-hours journey she feels tired, denies any chest pain, shortness of breath, headache, nausea, vomiting, fever, cough, weakness. Dr. Landa from psychiatry has been consulted, for possible transfer to Neuropsych Unit, once the patient is medically stable.Psychiatry is likely pursuing guardianship. Patient was seen this morning. She presented in a fairly cheerful mood and remembered who I was from the last admission. She says she is doing fairly well now. She denies feeling depressed or euphoric. Her main worry is where she is going after the hospital and how she will get there. She denies auditory and visual hallucinations. She denies suicidal and homicidal ideation. We had a fairly extensive discussion about the guardianship application we filed prior to her transfer to [facility]. She now sees that guardianship would be a good idea for her. She says I need help with my thinking so I do not make mistakes. I told the patient she could transfer to the psychiatry unit when she is medically stable. I told her the importance of eating, drinking fluids, and taking her medication regularly. Unless she is doing those things she will not be able to come. She said she understood and would do her best. Psychiatric history: The patient is currently taking the following psychiatric medications: Sertraline 50 mg daily, Abilify 15 mg daily, and melatonin 6 mg at bedtime. The patient was admitted to the neuropsychiatric unit from 02/28?03/02/2021; 03/10?03/20/2021; and from 03/21?04/03/2021, when she was transferred to [facility]. On the NPU, she often had unstable mood and perseverative thinking. Guardianship application was presented to the court, but no hearing had been held prior to her transfer. Meds Current Medications: Current Medications Generic Name Dose Route Start Last Admin Trade Name Freq PRN Reason Stop Dose Admin Acetaminophen 650 mg 04/19/21 17:32 04/19/21 23:21 Acetaminophen 32 5 Mg Tablet PO 650 mg Q6H PRN Administration Mild/Mod Pain Or Temp >/= 101 Diltiazem HCl 180 mg 04/19/21 20:30 04/20/21 08:39 Diltiazem Er (24 hr) 180 Mg Capsule PO 180 mg DAILY AGNES Administration Insulin Aspart 0 unit 04/19/21 18:00 04/20/21 08:09 Insulin Aspart 1 00 Unit/1 Ml SUBCUT Not Given WM&BEDTIME AGNES Protocol Levothyroxine Sodi um 150 mcg 04/20/21 09:00 04/20/21 08:39 Levothyroxine 15 0 Mcg Tablet PO 150 mcg DAILY AGNES Administration Pantoprazole Sodiu m 40 mg 04/19/21 18:00 04/20/21 08:[address] 40 Mg Tablet PO 40 mg BID AGNES Administration Paroxetine HCl 10 mg 04/20/21 09:00 04/20/21 08:39 Paroxetine 20 Mg Tablet PO 10 mg DAILY AGNES Administration Fluticasone/Salmet gifty 1 puff 04/19/21 20:00 04/20/21 09:20 Fluticasone-Salm eterol 250-50 Disk us INHALATION 1 puff BID.RESPIRATORY S CH Administration Sertraline HCl 50 mg 04/20/21 09:00 04/20/21 08:39 Sertraline 50 Mg Tablet PO 50 mg DAILY AGNES Administration Sotalol HCl 80 mg 04/19/21 17:45 04/20/21 08:39 Sotalol 80 Mg Ta blet PO 80 mg BID@0900,2100 AGNES Administration PFSH NPU PFSH: Medical History (Updated 04/19/21 @ 18:00 by Jamie Vega MD) ASHD (arteriosclerotic heart disease) Atherosclerosis of coronary artery of [place] heart without angina pectoris Atrial fibrillation Cellulitis CHF (congestive heart failure) Chronic anticoagulation Lucy COVID-19 January Dyslipidemia Essential hypertension Hx of deep venous thrombosis Mitral valve regurgitation Pulmonary hypertension Tricuspid valve regurgitation Type 2 diabetes mellitus Surgical History History of coronary artery bypass graft 2005 History of coronary artery stent placement History of total vaginal hysterectomy History of tubal ligation Status post colonoscopy Family History Other CAD (coronary artery disease) Diabetes Hypertension Social History Smoking and tobacco status: never smoked Alcohol intake: current Alcohol intake frequency: holidays/special occasions only Household members: significant other Marital status: Single Mental Status Exam MSE Comments: I met with the patient in her room on the [facility] unit, and she was dressed in hospital scrubs and fairly well groomed. She was calm, cooperative, interactive, and made good eye contact. No psychomotor agitation or retardation. Speech is at a regular rate and rhythm, normal volume, good articulation, not pressured. Alert, oriented to person, place, time, and situation. Attention and concentration were intact to exam Memory is intact for the purposes of this interview. It appears to be an improvement over her previous functioning. Mood is fairly euthymic. Affect is pleasant. Thought process is somewhat scattered and rambling but her thought process can be tracked. Thought content: Denies auditory and visual hallucinations. No delusions or paranoia are noted. No current suicidal ideation, and no homicidal ideation. Fund of knowledge is intact to exam. Language is intact to exam. Insight and judgment appear to be limited. Impulse control is limited as well. Vitals/I&O/Wt Last Vital Signs Temp 98.7 F 04/20/21 07:31 Pulse 102 H 04/20/21 09:21 Resp 20 H 04/20/21 09:21 BP 139/73 04/20/21 07:31 Pulse Ox 93 04/20/21 09:21 04/19/21 04/20/21 04/20/21 22:59 06:59 14:59 Intake Total 60 / 60 300 / 300 Output Total 120 / 120 Balance -120 / -120 60 / -60 300 / 300 Weight last 48 hrs Weight 99.654 kg Weight 98.883 kg A&P Additional A&P Information 1. I will follow along with the patient daily to provide for her psychiatric needs. 2. We will accept her back on the neuropsychiatric unit when Dr. Landa determines it is medically appropriate. 3. We will want to review the PT consult prior to excepting the patient back on the neuropsychiatric unit. 4. The patient should not be transferred back prior to talking with Dr. Landa directly. Involuntary Hold Information 96 Hour Hold: 96 Hour Involuntary Admission: Yes 96 Hour Hold Ending Date: 03/27/21 96 Hour Hold Ending Time: 07:23 Attestations NPU Medical Necessity Statement*: Per Dr. Vega Coding Level of Care Code Acute Reel System Operator for [facility]
--- NOTE | 2021-04-20 15:36 | PC.CHAP ---
Pastoral Care Encounter/Spiritual Assessment Type of Contact [xx] Declined guide winder visit [] Patient/Family/Request visit [] Outpatient visit [] Follow-up visit [] Physician referral [] Code/Alert [] Routine visit [] Staff referral [] Actively dying [] Patient sleeping [] Family support [] [] Out of room [] Palliative care [] [] Receiving care in room [] Pre-surgical visit [] Trauma [] Long length of stay [] ICU visit [] Other: Relational/Emotional Strength [] Patient feels connected with others/family/visitors/staff [] Distress [] Loneliness/isolation [] Abandonment Spirituality of Patient [] Person of Flaca [] Attends Yazdanism of their Flaca [] Believes in Prayer [] Reads Bible or Shinto materials [] There are Spiritual issues to be addressed Buttermaker Helper Interventions [] Prayer [] Active listening [] Non-anxious presence [] Spiritual/emotional support [] Crisis/trauma care [] Spiritual counseling [] Bereavement support [] Provided bereavement packet [] Provided Bible/devotional materials [] Provided toy/stuffed animal, coloring book to patient or family member [] Provided Communion [] Anointing/[place] [] Salvation [] Completed spiritual assessment [] Other: Impact on Illness or Injury [] Angry [] Fearful [] Anxious [] Often cries [] Exhaustion [] Unable to work [] Unable to attend amish [] Unable to walk/stand [] Unable to read [] Unable to drive [] Unable to eat/drink [] Unable to sleep [] Unable to be with family [] Patient intubated [] Other: Summary Patient wanted only for guide winder to find her a wheelchair so she could go downstairs and visit friends. When guide winder mentioned this to a nurse, the nurse stated patient is mentally unstable at present and she would not be allowed a wheelchair to visit others in hospital. Time spent with patient 3 minutes
[2021-04-20] MEDS: dilTIAZem 60 mg Tablet PO (15:42)
[2021-04-20 16:57] LABS: Glucose Point of Care 108 mg/dL (70-110)
--- NOTE | 2021-04-20 19:41 | PC.NURSE ---
IV ACCESS On doing assessment no IV access found. Has dressing to right upper arm where is charted to have had a PICC line. Pt says it was removed yesterday
[2021-04-20 20:47] LABS: Glucose Point of Care 108 mg/dL (70-110)
[2021-04-20] MEDS: acetaminophen 325 mg Tablet 650 MG PO (20:59)
[2021-04-21] VITALS (7 sets, daily range): BP systolic 112–142; BP diastolic 74–84; PULSE 84–128; RESP 17–18; TEMP 36.2–36.8; O2SAT 90–96; BMI 37.7
[2021-04-21] MEDS: acetaminophen 325 mg Tablet 650 MG PO (04:55)
--- NOTE | 2021-04-21 05:01 | PC.NURSE ---
SHIFT SUMMARY Has not rested well tonight. Sleeps for short time period then awake calling for nurses by either hollering out or turning glue bone crusher light. Has ambulated to bathroom with walker and SBA. Up to side of bed or chair several times then in just few minutes is ready to lay back down. Has been pleasant and apologizes for bothering me. Says she just can't get comfortable and can't sleep. Given po Tylenol X2 for c/o generalized pain/discomfort. Is oriented to person and place but gets confused as to time. Have used bed and chair alarms for safety
[2021-04-21 05:25] LABS: Basophils % 0.6 %; Eosinophils # 0.1 10^3/uL (0.0-0.8); Eosinophils % 2.6 %; Hematocrit 37.2 % (37.0-47.0); Hemoglobin 11.1 g/dL (11.5-15.3); Lymphocytes # 0.9 10^3/uL (0.8-4.8); Lymphocytes % 17.4 %; Mean Corpuscular HGB Conc 29.8 g/dL (30.0-36.0); Mean Corpuscular Hemoglobin 28.2 pg (28.0-34.0); Mean Corpuscular Volume 94.7 fl (81-99); Monocytes # 0.6 10^3/uL (0.2-0.9); Monocytes % 11.2 %; Neutrophils # 3.65 10^3/uL (1.8-7.7); Nucleated Red Blood Cells % 0 %; Platelet Count 165 10^3/cmm (130-400); Red Blood Count 3.93 10^6/uL (4.1-5.3); Red Cell Distribution Width 17.1 % (12.1-15.1); White Blood Count 5.4 10^3/uL (4.0-10.0)
[2021-04-21 05:53] LABS: Alanine Aminotransferase 7 U/L (0-33); Albumin Level 3.3 g/dL (3.5-5.2); Alkaline Phosphatase 57 IU/L (35-105); Anion Gap 14.7 (5-19); Aspartate Amino Transferase 13 U/L (0-32); Blood Urea Nitrogen 6 mg/dL (8-23); Calcium 8.8 mg/dL (8.5-10.5); Carbon Dioxide 30 mmol/L (22-29); Chloride 102 mmol/L (98-107); Globulin 2.7 g/dL (1.3-4.6); Glomerular Filtration Rate 225.4 mL/min (90-130); Glucose 93 mg/dL (65-115); Osmolality Calculated 293 mOsm/kg (285-295); Potassium 3.7 mmol/L (3.5-5.1); Sodium 143 mmol/L (136-145); Total Bilirubin 0.7 mg/dL (0.15-1.2)
[2021-04-21 06:26] LABS: Glucose Point of Care 103 mg/dL (70-110)
[2021-04-21] MEDS: sertraline 50 mg Tablet PO (08:23)
[2021-04-21] MEDS: PARoxetine 20 mg Tablet 10 MG PO (08:23)
[2021-04-21] MEDS: pantoprazole DR 40 mg Tablet PO ×2 (08:23→17:43)
[2021-04-21] MEDS: sotalol 80 mg Tablet PO ×2 (08:23→20:50)
[2021-04-21] MEDS: enoxaparin 30 mg/0.3 mL Syringe SUBCUT (08:23)
[2021-04-21] MEDS: levothyroxine 150 mcg Tablet PO (08:23)
[2021-04-21] MEDS: dilTIAZem ER (24HR) 180 mg Capsule PO (08:23)
[2021-04-21] MEDS: FUROsemide 40 mg Tablet PO (08:26)
[2021-04-21 11:59] LABS: Glucose Point of Care 133 mg/dL (70-110)
--- NOTE | 2021-04-21 16:03 | PM.NPN ---
Subjective NPU Subjective: Interval history: I met with the patient on the medical unit. She was happy to see me and said she was doing well. She is looking forward to coming to the Neuropsych Unit. She says that her mood is good, and she does not feel depressed or worried. She denies manic symptoms. She has no auditory or visual hallucinations. She has no suicidal or homicidal ideation. She feels more stable medically, and feels she can walk fairly well. Mental Status Exam MSE Comments: The patient made good eye contact and was cooperative and open to the exam. She required assistance to sit up in bed. No psychomotor agitation or retardation. Speech was had a regular rate and rhythm without pressure. Alert and oriented to person, place, and situation. Attention and concentration were intact to exam Memory was fairly good to exam. Mood is improved without depression and anxiety. Affect is brighter. Thought process: Logical and goal directed. No racing thoughts or flight of ideas. Thought content: Denies auditory and visual hallucinations. There are no delusions noted. No suicidal or homicidal ideation. Has future-oriented goals. Insight and judgment are improved and adequate. Vitals/I&O/Wt Last Vital Signs Temp 98.0 F 04/21/21 15:32 Pulse 84 04/21/21 15:32 Resp 18 04/21/21 15:32 BP 134/84 04/21/21 15:32 Pulse Ox 92 04/21/21 15:32 04/21/21 04/21/21 04/21/21 06:59 14:59 22:59 Intake Total 200 / 740 120 / 120 Output Total 375 / 577 Balance -175 / 163 120 / 120 Weight last 48 hrs Weight 99.745 kg Weight 99.654 kg Weight 98.883 kg Data NPU : 04/21/21 04:57 04/21/21 04:57 A&P Assessment and plan (1) Bipolar disorder in partial remission: Status: Acute (2) S/P evacuation of subdural hematoma: Status: Acute (3) Extrapyramidal and movement disorder: Status: Acute Additional A&P Information The neuropsychiatric unit is now prepared to receive the patient, starting on evening shift today. She needs a one-to-one sitter because of her O2 tubing (strangulation risk). There will be a sitter available starting at 7 PM this evening. The main focus of her admission to the neuropsychiatric unit will be to provide support as we are seeking guardianship and assisting with placement options. Involuntary Hold Information 96 Hour Hold: 96 Hour Involuntary Admission: Yes 96 Hour Hold Ending Date: 03/27/21 96 Hour Hold Ending Time: 07:23 Attestations NPU Medical Necessity Statement*: Per hospitalist Coding Level of Care Code Acute Developmental Education Instructor for [facility] Fwd Diagnoses Bipolar disorder in partial remission F31.70 S/P evacuation of subdural hematoma Z98.890; Z86.79 Extrapyramidal and movement disorder G25.9
--- NOTE | 2021-04-21 16:10 | P.PN_ITS ---
Subjective Subjective: Interval history: Patient was seen and examined this morning no acute events overnight. Continues to be in A. fib, heart rate is better controlled with medication. Currently taking p.o. meds, tolerating diet well. Physical therapy evaluated, she is ambulating fine. Currently she is at her baseline home oxygen requirement on ambulation. Medications: Reviewed: Yes Vitals/I&O/Wt Last Vital Signs Temp 98.0 F 04/21/21 15:32 Pulse 84 04/21/21 15:32 Resp 18 04/21/21 15:32 BP 134/84 04/21/21 15:32 Pulse Ox 92 04/21/21 15:32 04/21/21 04/21/21 04/21/21 06:59 14:59 22:59 Intake Total 200 / 740 120 / 120 Output Total 375 / 577 Balance -175 / 163 120 / 120 Weight last 48 hrs Weight 99.745 kg Weight 99.654 kg Weight 98.883 kg Physical Exam Const: COMMON NORMALS: patient oriented x3 HENMT: COMMON NORMALS: normocephalic HEAD & SCALP: normocephalic OTHER: left parietal suture line clean and intact Eye: COMMON NORMALS: no scleral icterus GENERAL EYE: appearance normal, both eyes and all related structures Chest: CHEST: Yes Symmetrical chest wall rise Resp: COMMON NORMALS: normal respiratory effort and clear to auscultation bilaterally AUSCULTATION: clear to auscultation bilaterally Cardio: COMMON NORMALS: No gallops present (Cardio), No murmurs present (Cardio), No rub (Cardio) and Peripheral pulses 2+ throughout PERIPHERAL PULSES: Peripheral pulses 2+ throughout OTHER: Irregularly irregular rhythm, S1-S2 variable intensity GI: COMMON NORMALS: Normal to inspection, nondistended, normoactive bowel sounds present, Soft to palpation, non-tender, No hepatosplenomegaly present and no masses AUSCULTATION: Yes normoactive bowel sounds PALPATION: Yes Soft to palpation and Yes No hepatosplenomegaly present RECTAL EXAM: deferred Extremity: COMMON NORMALS: no clubbing, cyanosis or edema and no pedal edema Neuro: COMMON NORMALS: patient oriented x3 Data : 04/21/21 04:57 04/21/21 04:57 A&P Assessment and plan (1) Atrial fibrillation: Currently rate controlled: Continue diltiazem 180 mg po daily Sotalol 80 mg p.o. twice daily Continue telemetry Currently she is not a candidate of anticoagulation, as she recently had a subdural hematoma. Status: Acute Qualifiers: Atrial fibrillation type: unspecified Qualified Code(s): I48.91 - Unspecified atrial fibrillation (2) Subdural hematoma: Patient was seen by neurosurgery at [facility], their plan is to do a repeat CT head without contrast in 4 weeks time to decide on the future course of long-term anticoagulation given her history of A. fib as well as DVT. They also plan to see her in 3 to 4 weeks for suture removal. Status: Acute (3) CHF (congestive heart failure): HFrEF currently compensated. Monitor intake output Daily weight I/O charting Lasix 40 mg p.o. daily K>4, MG>2 Status: Acute Qualifiers: Heart failure type: diastolic Heart failure chronicity: chronic Qualified Code(s): I50.32 - Chronic diastolic (congestive) heart failure (4) Type 2 diabetes mellitus: LDSSI FSG Carbohydrate consistent diet Status: Acute (5) Pulmonary hypertension: Currently she is at her baseline home oxygen requirement on ambulation. Status: Acute (6) Essential hypertension: Status: Acute (7) Bipolar affective, mixed, sev w/ psych: Psych on board. Appreciate recommendation Status: Acute Additional A&P Information CODE STATUS: Full code DVT prophylaxis: Lovenox 30 mg sc daily Attestations 2 Medical Necessity Statement*: Patient is being transferred to NPU for guardianship and assisting with placement options. Coding Level of Care Code Acute Metal Reed Tuner for [facility] Diagnoses Atrial fibrillation I48.91 Atrial fibrillation type: unspecified Subdural hematoma S06.5X9A CHF (congestive heart failure) I50.32 Heart failure type: diastolic Heart failure chronicity: chronic Type 2 diabetes mellitus E11.9 Pulmonary hypertension I27.20 Essential hypertension I10 Bipolar affective, mixed, sev w/ psych F31.64
[2021-04-21 16:51] LABS: Glucose Point of Care 112 mg/dL (70-110)
[2021-04-21 20:48] LABS: Glucose Point of Care 125 mg/dL (70-110)
[2021-04-22] MEDS: hyDROXYzine 25 mg Capsule 50 MG PO ×3 (03:39→19:56)
[2021-04-22 06:00] VITALS: BP 122/77; PULSE 67; RESP 14; TEMP 36.2; O2SAT 92
[2021-04-22 06:57] LABS: Glucose Point of Care 111 mg/dL (70-110)
[2021-04-22 08:19] LABS: Basophils # 0.1 10^3/uL (0.0-0.1); Basophils % 0.8 %; Eosinophils # 0.2 10^3/uL (0.0-0.8); Eosinophils % 2.3 %; Hematocrit 38.3 % (37.0-47.0); Hemoglobin 11.6 g/dL (11.5-15.3); Lymphocytes # 1.1 10^3/uL (0.8-4.8); Lymphocytes % 17.4 %; Mean Corpuscular HGB Conc 30.3 g/dL (30.0-36.0); Mean Corpuscular Hemoglobin 28.2 pg (28.0-34.0); Mean Platelet Volume 11.1 fL (7.4-10.4); Monocytes # 0.7 10^3/uL (0.2-0.9); Monocytes % 11.1 %; Neutrophils # 4.43 10^3/uL (1.8-7.7); Neutrophils % 68.2 %; Nucleated Red Blood Cells % 0 %; Platelet Count 220 10^3/cmm (130-400); Red Blood Count 4.12 10^6/uL (4.1-5.3); Red Cell Distribution Width 17.2 % (12.1-15.1); White Blood Count 6.5 10^3/uL (4.0-10.0)
[2021-04-22 08:33] VITALS: PULSE 101; RESP 18; O2SAT 91
[2021-04-22 08:42] LABS: Alanine Aminotransferase 9 U/L (0-33); Albumin Level 3.7 g/dL (3.5-5.2); Alkaline Phosphatase 66 IU/L (35-105); Anion Gap 15.7 (5-19); Aspartate Amino Transferase 15 U/L (0-32); Blood Urea Nitrogen 4 mg/dL (8-23); Calcium 8.9 mg/dL (8.5-10.5); Carbon Dioxide 31 mmol/L (22-29); Chloride 99 mmol/L (98-107); Globulin 2.8 g/dL (1.3-4.6); Glomerular Filtration Rate 161.7 mL/min (90-130); Glucose 101 mg/dL (65-115); Osmolality Calculated 291 mOsm/kg (285-295); Potassium 3.7 mmol/L (3.5-5.1); Sodium 142 mmol/L (136-145); Total Bilirubin 0.7 mg/dL (0.15-1.2); Total Protein 6.5 g/dL (6.6-8.7)
[2021-04-22] MEDS: FUROsemide 40 mg Tablet PO (08:44)
[2021-04-22] MEDS: dilTIAZem ER (24HR) 180 mg Capsule PO (08:44)
[2021-04-22] MEDS: sertraline 50 mg Tablet PO (08:45)
[2021-04-22] MEDS: sotalol 80 mg Tablet PO ×2 (08:45→19:57)
[2021-04-22] MEDS: levothyroxine 150 mcg Tablet PO (08:45)
[2021-04-22] MEDS: pantoprazole DR 40 mg Tablet PO ×2 (08:45→19:56)
[2021-04-22] MEDS: PARoxetine 20 mg Tablet 10 MG PO (08:45)
--- NOTE | 2021-04-22 08:46 | PC.NURSE ---
refused scheduled lovenox injection
--- NOTE | 2021-04-22 11:28 | PC.NURSE ---
ADMINISTERED VISTARIL 50MG PO FOR PT C/O OF INCREASING ANXIETY. WILL MONITOR FOR MEDICATION EFFECTIVENESS.
[2021-04-22 11:30] LABS: Glucose Point of Care 95 mg/dL (70-110)
--- NOTE | 2021-04-22 13:17 | P.PN_ITS ---
Subjective NPU Subjective: Interval history: The patient has been transferred to the neuropsychiatric unit to assure that she is psychiatrically stable before returning home. She is on one-to-one observation to make sure that she does not fall and that she does not hurt her oxygen tubing when she is using it. The patient says that she had trouble sleeping last night. She is not sure why. Dominga beard says that she still has emotional residue from recent events. She says she is scared of what happened in the surgery. This makes her anxious. She denies depression. She still says she has trouble making decisions, and would like for me to talk to her daughter, Carol Bright. She denies auditory and visual hallucinations. No suicidal or homicidal ideation. No medication side effects. She says she is stable on her feet, although she needs help sitting up in bed or laying back down. She says she is feeling good physically. Mental Status Exam MSE Comments: The patient made good eye contact and was cooperative and open to the exam. She jokes with the examiner. No psychomotor agitation or retardation. Speech was had a regular rate and rhythm without pressure. Mild disarticulation is noted. Alert and oriented to person, place, and situation. Attention and concentration were intact to exam Memory was fairly good to exam. Mood is improved without depression and anxiety. Affect is brighter. Thought process: Logical and goal directed. No racing thoughts or flight of ideas. Thought content: Denies auditory and visual hallucinations. There are no delusions noted. No suicidal or homicidal ideation. Has future-oriented goals. Insight and judgment are improved and adequate. Vitals/I&O/Wt Last Vital Signs Temp 97.2 F L 04/22/21 06:00 Pulse 101 H 04/22/21 08:33 Resp 18 04/22/21 08:33 BP 122/77 04/22/21 06:00 Pulse Ox 91 04/22/21 08:33 04/21/21 04/22/21 04/22/21 22:59 06:59 14:59 Intake Total 240 / 360 Output Total 1800 / 1800 Balance -1560 / -1440 Weight last 48 hrs Weight 98.061 kg Weight 99.745 kg Weight 99.745 kg Data NPU : 04/22/21 08:09 04/22/21 08:09 A&P Assessment and plan (1) Atrial fibrillation: Currently rate controlled: Continue diltiazem 180 mg po daily Sotalol 80 mg p.o. twice daily Continue telemetry Currently she is not a candidate of anticoagulation, as she recently had a subdural hematoma. Status: Acute Qualifiers: Atrial fibrillation type: unspecified Qualified Code(s): I48.91 - Unspecified atrial fibrillation (2) Subdural hematoma: Patient was seen by neurosurgery at [facility], their plan is to do a repeat CT head without contrast in 4 weeks time to decide on the future course of long-term anticoagulation given her history of A. fib as well as DVT. They also plan to see her in 3 to 4 weeks for suture removal. Status: Acute (3) CHF (congestive heart failure): HFrEF currently compensated. Monitor intake output Daily weight I/O charting Lasix 40 mg p.o. daily K>4, MG>2 Status: Acute Qualifiers: Heart failure chronicity: chronic Heart failure type: diastolic Qualified Code(s): I50.32 - Chronic diastolic (congestive) heart failure (4) Type 2 diabetes mellitus: LDSSI FSG Carbohydrate consistent diet Status: Acute (5) Pulmonary hypertension: Currently she is at her baseline home oxygen requirement on ambulation. Status: Acute (6) Essential hypertension: Status: Acute (7) Bipolar disorder in partial remission: Status: Acute Additional A&P Information We appreciate Dr. Vega's management of #1 through 6 above. The main focus of her admission to the neuropsychiatric unit will be to provide support as we are seeking guardianship and assisting with placement options. She needs a one-to-one sitter because of her O2 tubing (strangulation risk). Involuntary Hold Information 96 Hour Hold: 96 Hour Involuntary Admission: No Attestations NPU Medical Necessity Statement*: The patient has been admitted to inpatient psychiatry to (1) assure that she is able to ambulate without falling, given that she had a recent subdural hematoma; (2) pursue guardianship since she is not able to see the context in which her decisions need to be made; (3) assure that she has an adequate living situation post discharge. 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
[2021-04-22 14:00] VITALS: BP 147/67; PULSE 109; RESP 18; TEMP 36.1; O2SAT 95
[2021-04-22] MEDS: cetylpyridinium Lozenge 1 EACH MUCOUS MEM (15:17)
[2021-04-22] MEDS: acetaminophen 325 mg Tablet 650 MG PO (15:17)
[2021-04-22 16:52] LABS: Glucose Point of Care 94 mg/dL (70-110)
[2021-04-22] MEDS: trazodone 50 mg Tablet PO (19:56)
[2021-04-22 20:02] LABS: Glucose Point of Care 105 mg/dL (70-110)
[2021-04-22 20:11] VITALS: PULSE 108; RESP 16; O2SAT 97
[2021-04-22] MEDS: OLANZapine 5 mg ODT PO (21:18)
[2021-04-22 21:21] VITALS: BP 148/98; PULSE 78; RESP 16; TEMP 36.6; O2SAT 98
[2021-04-22] MEDS: haloperidol 5 mg Tablet PO (23:32)
[2021-04-23 06:00] VITALS: BP 150/92; PULSE 103; RESP 17; TEMP 37.1; O2SAT 90
[2021-04-23] MEDS: acetaminophen 325 mg Tablet 650 MG PO ×3 (06:12→16:28)
[2021-04-23] MEDS: dilTIAZem ER (24HR) 180 mg Capsule PO (08:49)
[2021-04-23] MEDS: pantoprazole DR 40 mg Tablet PO ×2 (08:49→21:18)
[2021-04-23] MEDS: PARoxetine 20 mg Tablet 10 MG PO (08:49)
[2021-04-23] MEDS: sotalol 80 mg Tablet PO ×2 (08:49→19:56)
[2021-04-23] MEDS: FUROsemide 40 mg Tablet PO ×2 (08:50→19:56)
[2021-04-23] MEDS: levothyroxine 150 mcg Tablet PO (08:50)
[2021-04-23] MEDS: sertraline 50 mg Tablet PO (08:50)
[2021-04-23 09:05] VITALS: PULSE 120; RESP 20; O2SAT 90
[2021-04-23 09:06] LABS: Glucose Point of Care 125 mg/dL (70-110)
[2021-04-23 11:38] LABS: Glucose Point of Care 90 mg/dL (70-110)
--- NOTE | 2021-04-23 13:22 | PM.NPN ---
Subjective NPU Subjective: Interval history: I met with the patient along with Dr. Vega and then state after he left. Patient says that her mood is good. She denies auditory visual hallucinations. No suicidal or homicidal ideation. No medication side effects. She says she feels pretty stable getting around, but does need help sitting up in bed and then lying back down. Dr. Vega says that we need to be careful that she not fall since she has had a dose of Lovenox. He is going to discontinue this medication. Mental Status Exam MSE Comments: The patient made good eye contact and was cooperative and open to the exam. She asked how I am doing today. She has her normal cognition. No psychomotor agitation or retardation. Speech was had a regular rate and rhythm without pressure. Mild dysarticulation is noted. Alert and oriented to person, place, and situation. (She says today is April 24, when it is actually the fourth but she knows that it is Friday and 2020). Attention and concentration were intact to exam Memory was fairly good to exam. She does not remember her daughter's phone number. Mood is euthymic without depression and anxiety. Affect is bright. Thought process: Logical and goal directed. No racing thoughts or flight of ideas. Thought content: Denies auditory and visual hallucinations. There are no delusions noted. No suicidal or homicidal ideation. Has future-oriented goals. Insight and judgment are improved and adequate. Vitals/I&O/Wt Last Vital Signs Temp 98.8 F 04/23/21 06:00 Pulse 120 H 04/23/21 09:05 Resp 20 H 04/23/21 09:05 BP 150/92 04/23/21 06:00 Pulse Ox 90 04/23/21 09:05 Weight last 48 hrs Weight 98.061 kg Weight 99.745 kg Data NPU : 04/22/21 08:09 04/22/21 08:09 A&P Assessment and plan (1) Atrial fibrillation: Status: Acute Qualifiers: Atrial fibrillation type: unspecified Qualified Code(s): I48.91 - Unspecified atrial fibrillation (2) Subdural hematoma: Status: Acute (3) CHF (congestive heart failure): Status: Acute Qualifiers: Heart failure type: diastolic Heart failure chronicity: chronic Qualified Code(s): I50.32 - Chronic diastolic (congestive) heart failure (4) Type 2 diabetes mellitus: Status: Acute (5) Pulmonary hypertension: Status: Acute (6) Essential hypertension: Status: Acute (7) Bipolar disorder in partial remission: We are discontinuing the Paxil since she is also on Zoloft. Since the Paxil is 10 mg we are just going to discontinue it rather than taper it. If she develops withdrawal symptoms, we will return to 5 mg of Paxil. Since the patient's diagnosis is more likely a depressive disorder, it is okay to give an antidepressant without a mood stabilizer. Status: Acute Additional A&P Information We appreciate Dr. Vega's management of #1 through 6 above. The main focus of her admission to the neuropsychiatric unit will be to provide support as we are seeking guardianship and assisting with placement options. She needs a one-to-one sitter because of her O2 tubing (strangulation risk). Involuntary Hold Information 96 Hour Hold: 96 Hour Involuntary Admission: No Attestations NPU Medical Necessity Statement*: The patient has been admitted to inpatient psychiatry to (1) assure that she is able to ambulate without falling, given that she had a recent subdural hematoma; (2) pursue guardianship since she is not able to see the context in which her decisions need to be made; (3) assure that she has an adequate living situation post discharge. 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
[2021-04-23 14:00] VITALS: BP 111/77; PULSE 100; RESP 20; TEMP 36.7; O2SAT 95
--- NOTE | 2021-04-23 16:26 | P.PN_ITS ---
Subjective Medications: Reviewed: Yes Vitals/I&O/Wt Last Vital Signs Temp 98.0 F 04/23/21 14:00 Pulse 100 04/23/21 14:00 Resp 20 H 04/23/21 14:00 BP 111/77 04/23/21 14:00 Pulse Ox 95 04/23/21 14:00 Weight last 48 hrs Weight 98.061 kg Weight 99.745 kg Physical Exam Const: COMMON NORMALS: no acute distress ORIENTATION/CONSCIOUSNESS: Yes awake, Yes oriented to person and Yes oriented to place; not oriented to time Resp: COMMON NORMALS: normal respiratory effort, No retractions, No use of accessory muscles and clear to auscultation bilaterally AUSCULTATION: clear to auscultation bilaterally Cardio: COMMON NORMALS: regular rate, S1 normal heart sound present and S2 normal heart sound present RATE: regular rate RHYTHM: abnormal rhythm HEART SOUNDS: S1 normal heart sound present and S2 normal heart sound present GI: COMMON NORMALS: Normal to inspection, nondistended, normoactive bowel sounds present, Soft to palpation and non-tender PALPATION: Yes Soft to pa lpation Extremity: NARRATIVE EXTREMITY EXAM: 1+ pitting edema bilateral lower extremities Neuro: SENSORIUM/ORIENTATION: Yes oriented to person, Yes oriented to place and No oriented to time Data : 04/22/21 08:09 04/22/21 08:09 A&P Assessment and plan (1) Atrial fibrillation: Currently rate controlled: Continue diltiazem 180 mg po daily Sotalol 80 mg p.o. twice daily Currently she is not a candidate of anticoagulation, as she recently had a subdural hematoma. She did get one dose of Lovenox subcu we will continue to monitor Status: Acute Qualifiers: Atrial fibrillation type: unspecified Qualified Code(s): I48.91 - Unspecified atrial fibrillation (2) Subdural hematoma: Patient was seen by neurosurgery at [facility], their plan is to do a repeat CT head without contrast in 4 weeks time to decide on the future course of long-term anticoagulation given her history of A. fib as well as DVT. They also plan to see her in 3 to 4 weeks for suture removal. Status: Acute (3) CHF (congestive heart failure): HFrEF currently compensated. Monitor intake output Daily weight I/O charting Lasix 40 mg increased to twice daily given bilateral extremity edema K>4, MG>2 Status: Acute Qualifiers: Heart failure type: diastolic Heart failure chronicity: chronic Qualified Code(s): I50.32 - Chronic diastolic (congestive) heart failure (4) Type 2 diabetes mellitus: LDSSI FSG Carbohydrate consistent diet Status: Acute (5) Pulmonary hypertension: Currently she is at her baseline home oxygen requirement on ambulation. Status: Acute (6) Essential hypertension: Status: Acute (7) Bipolar affective, mixed, sev w/ psych: Psych on board. 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
[2021-04-23] MEDS: hyDROXYzine 25 mg Capsule 50 MG PO ×2 (16:28→19:57)
[2021-04-23] MEDS: cetylpyridinium Lozenge 1 EACH MUCOUS MEM (16:28)
--- NOTE | 2021-04-23 16:29 | PC.NURSE ---
Addendum entered by Sheridan Khalil LPN 04/23/21 18:21: prn med effective no further c/o anxiety. pt in day room with 1:1 sitter watching tv, mood is calm Original Note: PRN VISTARIL 50 MG GIVEN PO PER PT C/O STATED ANXIETY
[2021-04-23 16:53] LABS: Glucose Point of Care 96 mg/dL (70-110)
[2021-04-23 19:35] VITALS: PULSE 103; RESP 16; O2SAT 96
[2021-04-23] MEDS: OLANZapine 5 mg ODT PO (19:55)
[2021-04-23] MEDS: trazodone 50 mg Tablet PO (19:56)
[2021-04-23 21:18] LABS: Glucose Point of Care 94 mg/dL (70-110)
[2021-04-23 22:00] VITALS: BP 121/81; PULSE 87; RESP 15; TEMP 36.6; O2SAT 90
[2021-04-24] MEDS: acetaminophen 325 mg Tablet 650 MG PO ×4 (01:37→20:22)
[2021-04-24] MEDS: haloperidol 5 mg Tablet PO (01:37)
[2021-04-24 06:00] VITALS: BP 137/86; PULSE 102; RESP 18; TEMP 36.5; O2SAT 94
[2021-04-24 07:08] LABS: Glucose Point of Care 93 mg/dL (70-110)
[2021-04-24] MEDS: pantoprazole DR 40 mg Tablet PO ×2 (09:13→20:25)
[2021-04-24] MEDS: FUROsemide 40 mg Tablet PO ×2 (09:13→20:25)
[2021-04-24] MEDS: sotalol 80 mg Tablet PO ×2 (09:13→20:25)
[2021-04-24] MEDS: sertraline 50 mg Tablet PO (09:13)
[2021-04-24] MEDS: levothyroxine 150 mcg Tablet PO (09:13)
[2021-04-24] MEDS: dilTIAZem ER (24HR) 180 mg Capsule PO (09:13)
[2021-04-24 10:15] VITALS: PULSE 113; RESP 17; O2SAT 92
[2021-04-24] MEDS: cetylpyridinium Lozenge 1 EACH MUCOUS MEM ×2 (10:38→16:52)
--- NOTE | 2021-04-24 10:39 | PC.NURSE ---
PRN CEPACOL 1 LOZENGE GIVEN PO PER PT C/O SORE THROAT
[2021-04-24 11:48] LABS: Glucose Point of Care 117 mg/dL (70-110)
[2021-04-24 14:00] VITALS: BP 96/61; PULSE 85; RESP 18; TEMP 36.2; O2SAT 93
--- NOTE | 2021-04-24 15:20 | P.PN_ITS ---
Subjective NPU Subjective: Interval history: I met with the patient in the day room. She was accompanied by her sister. She says she is in a good mood but does get nervous. She feels like she cannot do so much. She said she slept about 3 or 4 hours last night. She is eating better. She does have some minor headaches but Tylenol helps. She is excited about the guardian hearing tomorrow. She knows this is a step on the way to her next placement. We talked about where she might be going. She denies auditory and visual hallucinations. No suicidal or homicidal ideation. No medication side effects. The patient has a diagnosis of bipolar disorder in her chart. She denies any past history of euphoria, decreased need for sleep, high levels of energy, racing thoughts, pressured speech, spending sprees, etc. Mental Status Exam MSE Comments: The patient made good eye contact and was cooperative and open to the exam. She was friendly towards the examiner. She has her normal cognition. No psychomotor agitation or retardation. Speech was had a regular rate and rhythm without pressure. Mild dysarticulation is noted. Alert and oriented to person and situation. Date and time were not tested. Attention and concentration were intact to exam Memory was fairly good to exam. Mood is euthymic without depression and anxiety. Affect is bright. Thought process: Logical and goal directed. No racing thoughts or flight of ideas. Thought content: Denies auditory and visual hallucinations. There are no delusions noted. No suicidal or homicidal ideation. Has future-oriented goals. Insight and judgment are improved and adequate. Vitals/I&O/Wt Last Vital Signs Temp 97.2 F L 04/24/21 14:00 Pulse 85 04/24/21 14:00 Resp 18 04/24/21 14:00 BP 96/61 04/24/21 14:00 Pulse Ox 93 04/24/21 14:00 Data NPU : 04/22/21 08:09 04/22/21 08:09 A&P Assessment and plan (1) Atrial fibrillation: Status: Acute Qualifiers: Atrial fibrillation type: unspecified Qualified Code(s): I48.91 - Unspecified atrial fibrillation (2) Subdural hematoma: Status: Acute (3) CHF (congestive heart failure): Status: Acute Qualifiers: Heart failure type: diastolic Heart failure chronicity: chronic Qualified Code(s): I50.32 - Chronic diastolic (congestive) heart failure (4) Type 2 diabetes mellitus: Status: Acute (5) Pulmonary hypertension: Status: Acute (6) Essential hypertension: Status: Acute (7) Major depression in partial remission: We are discontinuing the Paxil since she is also on Zoloft. Since the Paxil is 10 mg we are just going to discontinue it rather than taper it. If she develops withdrawal symptoms, we will return to 5 mg of Paxil. Since the patient's diagnosis is more likely a depressive disorder, it is okay to give an antidepressant without a mood stabilizer. Status: Acute Additional A&P Information We appreciate Dr. Garcia's management of #1 through 6 above. The main focus of her admission to the neuropsychiatric unit is to provide support as we are seeking guardianship and assisting with placement options. She may need a one-to-one sitter at times because of her O2 tubing (strangulation risk). 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
[2021-04-24 16:59] LABS: Glucose Point of Care 98 mg/dL (70-110)
--- NOTE | 2021-04-24 17:01 | PC.NURSE ---
PRN CEPACOL 1 LOZENGE GIVEN PO PER PT C/O SORE THROAT
[2021-04-24 19:05] VITALS: PULSE 105; RESP 16; O2SAT 92
[2021-04-24] MEDS: OLANZapine 5 mg ODT PO (20:25)
[2021-04-24] MEDS: trazodone 50 mg Tablet PO (20:25)
[2021-04-24 20:30] LABS: Glucose Point of Care 117 mg/dL (70-110)
[2021-04-24 22:00] VITALS: BP 131/82; PULSE 112; RESP 17; TEMP 36.8; O2SAT 92
[2021-04-25] MEDS: ibuprofen 800 mg tablet PO ×2 (02:06→21:34)
[2021-04-25] MEDS: acetaminophen 325 mg Tablet 650 MG PO ×2 (05:38→13:02)
[2021-04-25 06:00] VITALS: BP 125/86; PULSE 78; RESP 18; TEMP 36.8; O2SAT 95
[2021-04-25 07:03] LABS: Glucose Point of Care 103 mg/dL (70-110)
[2021-04-25 08:11] LABS: Blood Urea Nitrogen 5 mg/dL (8-23); Calcium 8.4 mg/dL (8.5-10.5); Carbon Dioxide 33 mmol/L (22-29); Chloride 99 mmol/L (98-107); Glomerular Filtration Rate 161.7 mL/min (90-130); Glucose 90 mg/dL (65-115); Osmolality Calculated 289 mOsm/kg (285-295); Sodium 141 mmol/L (136-145)
[2021-04-25 08:39] VITALS: PULSE 124; RESP 16; O2SAT 95
[2021-04-25] MEDS: sertraline 50 mg Tablet PO (08:51)
[2021-04-25] MEDS: levothyroxine 150 mcg Tablet PO (08:51)
[2021-04-25] MEDS: sotalol 80 mg Tablet PO ×2 (08:51→22:03)
[2021-04-25] MEDS: pantoprazole DR 40 mg Tablet PO ×2 (08:51→21:33)
[2021-04-25] MEDS: dilTIAZem ER (24HR) 180 mg Capsule PO (08:51)
[2021-04-25] MEDS: potassium chloride ER 20 mEq Tablet 30 MEQ PO ×2 (11:00→21:34)
[2021-04-25] MEDS: cetylpyridinium Lozenge 1 EACH MUCOUS MEM (13:57)
[2021-04-25 14:00] VITALS: BP 111/70; PULSE 88; RESP 18; TEMP 36.9; O2SAT 94
--- NOTE | 2021-04-25 14:08 | PC.NURSE ---
PT OFF UNIT TO COURT.
[2021-04-25 16:34] LABS: Glucose Point of Care 87 mg/dL (70-110)
--- NOTE | 2021-04-25 17:07 | P.PN_ITS ---
Subjective NPU Subjective: Interval history: I spoke with the patient after her hearing, in which she was deemed in need of a guardian. She was happy about the outcome. She knows this is a step on the way to her next placement. We talked about where she might be going. She denies auditory and visual hallucinations. No suicidal or homicidal ideation. No medication side effects. The patient has a diagnosis of bipolar disorder in her chart. She denies any past history of euphoria, decreased need for sleep, high levels of energy, racing thoughts, pressured speech, spending sprees, etc. Mental Status Exam MSE Comments: The patient made good eye contact and was cooperative and open to the exam. She was friendly towards the examiner. She has her normal cognition. No psychomotor agitation or retardation. Speech was had a regular rate and rhythm without pressure. Mild dysarticulation is noted. Alert and oriented to person and situation. Date and time were not tested. Attention and concentration were intact to exam Memory was fairly good to exam. Mood is euthymic without depression and anxiety. Affect is bright. Thought process: Logical and goal directed. No racing thoughts or flight of ideas. Thought content: Denies auditory and visual hallucinations. There are no delusions noted. No suicidal or homicidal ideation. Has future-oriented goals. Insight and judgment are improved and adequate. Vitals/I&O/Wt Last Vital Signs Temp 98.3 F 04/26/21 06:00 Pulse 98 04/26/21 06:00 Resp 18 04/26/21 06:00 BP 103/67 04/26/21 06:00 Pulse Ox 99 04/26/21 06:00 Data NPU : 04/22/21 08:09 04/25/21 07:27 A&P Assessment and plan (1) Major depression in partial remission: Status: Acute (2) S/P evacuation of subdural hematoma: Status: Acute (3) Type 2 diabetes mellitus: Status: Acute (4) CHF (congestive heart failure): Status: Acute Qualifiers: Heart failure type: diastolic Heart failure chronicity: chronic Qualified Code(s): I50.32 - Chronic diastolic (congestive) heart failure (5) Pulmonary hypertension: Status: Acute (6) Essential hypertension: Status: Acute (7) Atrial fibrillation: Status: Acute Qualifiers: Atrial fibrillation type: unspecified Qualified Code(s): I48.91 - Unspecified atrial fibrillation Additional A&P Information We appreciate Dr. Garcia's management of the medical conditions listed above. The main focus of her admission to the neuropsychiatric unit is to provide support as we are seeking guardianship and assisting with placement options. She may need a one-to-one sitter at times because of her O2 tubing (strangulation risk). 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
--- NOTE | 2021-04-25 17:07 | P.PN_ITS ---
Subjective Subjective: Interval history: Patient was seen this morning, she is doing well, she is awaiting her court appointment later on this afternoon, no shortness of breath complaints Vitals/I&O/Wt Last Vital Signs Temp 98.4 F 04/25/21 14:00 Pulse 88 04/25/21 14:00 Resp 18 04/25/21 14:00 BP 111/70 04/25/21 14:00 Pulse Ox 94 04/25/21 14:00 Physical Exam Const: COMMON NORMALS: no acute distress GENERAL APPEARANCE: cooperative ORIENTATION/CONSCIOUSNESS: Yes awake, Yes oriented to person and Yes oriented to place Resp: COMMON NORMALS: normal respiratory effort, No retractions, No use of accessory muscles and clear to auscultation bilaterally AUSCULTATION: clear to auscultation bilaterally Cardio: COMMON NORMALS: regular rate, S1 normal heart sound present and S2 normal heart sound present RATE: regular rate RHYTHM: abnormal rhythm irregularly irregular HEART SOUNDS: S1 normal heart sound present and S2 normal heart sound present GI: COMMON NORMALS: Normal to inspection, nondistended, normoactive bowel sounds present, Soft to palpation and non-tender PALPATION: Yes Soft to palpation Extremity: COMMON NORMALS: no pedal edema Neuro: SENSORIUM/ORIENTATION: Yes oriented to person and Yes oriented to place Psych: COMMON NORMALS: mental status grossly normal Data : 04/22/21 08:09 04/25/21 07:27 A&P Assessment and plan (1) Atrial fibrillation: Currently rate controlled: Continue diltiazem 180 mg po daily Sotalol 80 mg p.o. twice daily Currently she is not a candidate of anticoagulation, as she recently had a subdural hematoma. She did get one dose of Lovenox subcu we will continue to monitor Status: Acute Qualifiers: Atrial fibrillation type: unspecified Qualified Code(s): I48.91 - Unspecified atrial fibrillation (2) Subdural hematoma: Patient was seen by neurosurgery at [facility], their plan is to do a repeat CT head without contrast in 4 weeks time to decide on the future course of long-term anticoagulation given her history of A. fib as well as DVT. They also plan to see her in 3 to 4 weeks for suture removal. Status: Acute (3) CHF (congestive heart failure): HFrEF currently compensated. Monitor intake output Daily weight I/O charting Decrease Lasix to 40 mg daily, 1 dose potassium replacement today K>4, MG>2 Status: Acute Qualifiers: Heart failure type: diastolic Heart failure chronicity: chronic Qualified Code(s): I50.32 - Chronic diastolic (congestive) heart failure (4) Type 2 diabetes mellitus: LDSSI FSG Carbohydrate consistent diet Status: Acute (5) Pulmonary hypertension: Currently she is at her baseline home oxygen requirement on ambulation. Status: Acute (6) Essential hypertension: Status: Acute (7) Bipolar affective, mixed, sev w/ psych: Psych on board. Appreciate recommendation Status: Deleted Additional A&P Information CODE STATUS: Full code DVT prophylaxis: Pharmacologic contraindicated given subdural hematoma, is ambulating on her own Attestations Medical Necessity Statement*: Patient requires hospitalization for subdural hematoma, A. 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
[2021-04-25 20:21] VITALS: BP 127/78; PULSE 79; RESP 16; TEMP 36.9; O2SAT 98
[2021-04-25 21:23] VITALS: PULSE 103; RESP 18; O2SAT 93
[2021-04-25] MEDS: trazodone 50 mg Tablet PO (21:33)
[2021-04-25 21:35] LABS: Glucose Point of Care 99 mg/dL (70-110)
[2021-04-25] MEDS: hyDROXYzine 25 mg Capsule 50 MG PO (21:36)
[2021-04-25] MEDS: OLANZapine 5 mg ODT PO (21:36)
[2021-04-25 23:20] VITALS: PULSE 91; O2SAT 97
[2021-04-26] MEDS: OLANZapine 5 mg ODT PO ×2 (02:53→21:01)
[2021-04-26] MEDS: trazodone 50 mg Tablet PO ×3 (02:53→23:00)
--- NOTE | 2021-04-26 02:59 | PC.NURSE ---
Addendum entered by Anirudh Frederick RN 04/26/21 03:44: meds were effective. Addendum entered by Anirudh Frederick RN 04/26/21 03:43: patient given additional dose of trazodone and zyprexa for sleep and agitation. Original Note: Patient given Trazpdone 50mg PO, Visteril 50 mg PO at patient request for sleep and anxiety. Patient also given Zyprexa 5mg Po for anxiety / agitation.
[2021-04-26 06:00] VITALS: BP 103/67; PULSE 98; RESP 18; TEMP 36.8; O2SAT 99
[2021-04-26 06:57] LABS: Glucose Point of Care 151 mg/dL (70-110)
[2021-04-26] MEDS: potassium chloride ER 20 mEq Tablet 30 MEQ PO (09:09)
[2021-04-26] MEDS: levothyroxine 150 mcg Tablet PO (09:10)
[2021-04-26] MEDS: sertraline 50 mg Tablet PO (09:10)
[2021-04-26] MEDS: bisacodyl 5 mg Tablet 10 MG PO (09:10)
[2021-04-26] MEDS: FUROsemide 40 mg Tablet PO (09:10)
[2021-04-26] MEDS: dilTIAZem ER (24HR) 180 mg Capsule PO (09:10)
[2021-04-26] MEDS: pantoprazole DR 40 mg Tablet PO ×2 (09:10→21:10)
[2021-04-26] MEDS: sotalol 80 mg Tablet PO ×2 (09:11→21:01)
[2021-04-26 09:55] VITALS: PULSE 109; RESP 20; O2SAT 94
[2021-04-26 11:25] LABS: Glucose Point of Care 93 mg/dL (70-110)
[2021-04-26] MEDS: loperamide 2 mg Capsule PO (12:40)
[2021-04-26 14:00] VITALS: BP 99/50; PULSE 89; RESP 18; TEMP 36.3
[2021-04-26] MEDS: acetaminophen 325 mg Tablet 650 MG PO (16:20)
--- NOTE | 2021-04-26 16:24 | P.PN_ITS ---
Subjective NPU Subjective: Interval history: Patient presents today reporting that she is doing better than when she saw me before. She explained to me what happened when she went to the other hospital and that she is doing much better now. She endorses being prepared for the guardianship and that she is excited about being able to leave as soon as. We talked about the issues that were currently holding up the process. That she was okay with the current circumstance. We discussed the likelihood of discharge by Friday. Mental Status Exam MSE Comments: This is an obese versus morbidly obese white female in hospital scrubs with adequate grooming and appropriate eye contact. No abnormal move ments except for continued psychomotor retardation. Cooperative with exam in no acute distress. Speech was somewhat decreased rate and volume. Mood described as better, affect congruent. Thought process organized. Thought content: Patient denied suicidal or homicidal ideation, there are no delusions reported or noted, she denied auditory or visual hallucinations. Attention and concentration appeared intact and memory seems more reliable but none were formally tested. She is alert and oriented x3. Insight and judgment appear limited, but improving impulse control appears fair. Vitals/I&O/Wt Last Vital Signs Temp 98.5 F 04/26/21 20:21 Pulse 89 04/26/21 20:21 Resp 17 04/26/21 20:21 BP 118/76 04/26/21 20:21 Pulse Ox 91 04/26/21 20:21 Data NPU : 04/22/21 08:09 04/25/21 07:27 A&P Additional A&P Information (1) Major depression in partial remission: (2) S/P evacuation of subdural hematoma: (3) Type 2 diabetes mellitus: (4) CHF (congestive heart failure): (5) Pulmonary hypertension: (6) Essential hypertension: (7) Atrial fibrillation: Additional A&P Information Ivette Wheeler is a 61 carlitos old female who was being transferred to the neuropsychiatric unit from the medical unit after being transferred back from an outside hospital for repair of her subdural hematoma having previously been on the unit.The main focus of her admission to the neuropsychiatric unit will be to provide support as we are seeking guardianship and assisting with placement options. RECOMMENDATION AND PLAN: 1. Continue current medication. 2. Continue every 15 minute checks for safety. 3. Encourage individual, group and milieu therapies. 4. Will follow hospitalist's recommendations on medical comorbidities. 5. Need to develop an adequate plan for discharge to the community. 6. She is on a guardianship hold. Involuntary Hold Information 96 Hour Hold: 96 Hour Involuntary Admission: No Attestations NPU Medical Necessity Statement*: Inpatient hospitalization is medically necessary and clinically appropriate event and at this time. Will monitor medications any changes indicated. The patient has been admitted to inpatient psychiatry to (1) assure that she is able to ambulate without falling, given that she had a recent subdural hematoma; (2) pursue guardianship since she is not able to see the context in which her decisions need to be made; (3) assure that she has an adequate living situation post discharge. Likely length of stay 4 to 6 days. Coding Level of Care Code Acute Building Maintenance Repairer for [employer]mie Arias
[2021-04-26 16:42] LABS: Glucose Point of Care 102 mg/dL (70-110)
[2021-04-26 20:00] VITALS: PULSE 74; RESP 18; O2SAT 96
[2021-04-26 20:21] VITALS: BP 118/76; PULSE 89; RESP 17; TEMP 36.9; O2SAT 91
[2021-04-26] MEDS: hyDROXYzine 25 mg Capsule 50 MG PO (21:01)
[2021-04-26 21:39] LABS: Glucose Point of Care 324 mg/dL (70-110)
[2021-04-26 21:39] LABS: Glucose Point of Care 129 mg/dL (70-110)
[2021-04-26] MEDS: diphenhydrAMINE 25 mg Capsule PO (23:21)
--- NOTE | 2021-04-27 00:26 | PC.NURSE ---
PRN MEDIATIONS: PATIENT WAS GIVEN VISTERIL 50MG PO, ZYPREXA 5MG PO AND DESYREL 50MG PO. UPON REASSESSMENT MEDICATION WAS EFFECTIVE.
--- NOTE | 2021-04-27 00:27 | PC.NURSE ---
PRN MEDIATIONS: PATIENT WAS GIVEN VISTERIL 50MG PO, ZYPREXA 5MG PO AND DESYREL 50MG PO. UPON REASSESSMENT PATIENT STILL HAVING SOME TROUBLE SLEEPING AND WITH ANXIETY, WILL CONTINUE TO ASSESS AND MONITOR, DR ANTUNEZ.
[2021-04-27] MEDS: cetylpyridinium Lozenge 1 EACH MUCOUS MEM (02:11)
[2021-04-27] MEDS: ibuprofen 800 mg tablet PO ×2 (02:11→09:52)
[2021-04-27] MEDS: acetaminophen 325 mg Tablet 650 MG PO ×2 (05:06→12:10)
[2021-04-27 06:00] VITALS: RESP 17
[2021-04-27 08:38] LABS: Glucose Point of Care 132 mg/dL (70-110)
[2021-04-27 08:55] VITALS: PULSE 89; RESP 18; O2SAT 90
[2021-04-27] MEDS: FUROsemide 40 mg Tablet PO (09:51)
[2021-04-27] MEDS: potassium chloride ER 20 mEq Tablet 30 MEQ PO (09:51)
[2021-04-27] MEDS: pantoprazole DR 40 mg Tablet PO ×2 (09:51→20:56)
[2021-04-27] MEDS: dilTIAZem ER (24HR) 180 mg Capsule PO (09:51)
[2021-04-27] MEDS: sotalol 80 mg Tablet PO ×2 (09:51→20:56)
[2021-04-27] MEDS: sertraline 50 mg Tablet PO (09:53)
[2021-04-27] MEDS: levothyroxine 150 mcg Tablet PO (09:54)
[2021-04-27 11:36] LABS: Glucose Point of Care 100 mg/dL (70-110)
[2021-04-27] MEDS: diclofenac 1% Topical Gel 100 gm 1 APPLIC TOPICAL ×3 (12:11→21:03)
[2021-04-27] MEDS: hyDROXYzine 25 mg Capsule 50 MG PO (12:57)
[2021-04-27 14:00] VITALS: BP 94/64; PULSE 87; RESP 18; TEMP 36.6; O2SAT 91
--- NOTE | 2021-04-27 14:54 | P.PN_ITS ---
Subjective Subjective: Interval history: Patient was seen this morning, she is doing well, she had a court appointment, she is awaiting placement, likely on Friday Vitals/I&O/Wt Last Vital Signs Temp 98.5 F 04/26/21 20:21 Pulse 89 04/27/21 08:55 Resp 18 04/27/21 08:55 BP 118/76 04/26/21 20:21 Pulse Ox 90 04/27/21 08:55 Physical Exam Const: COMMON NORMALS: no acute distress and patient oriented x3 GENERAL APPEARANCE: cooperative ORIENTATION/CONSCIOUSNESS: Yes awake, Yes oriented to person and Yes oriented to place; not oriented to time Resp: COMMON NORMALS: normal respiratory effort, No retractions, No use of accessory muscles and clear to auscultation bilaterally AUSCULTATION: clear to auscultation bilaterally Cardio: COMMON NORMALS: regular rate, regular rhythm, S1 normal heart sound present and S2 normal heart sound present RATE: regular rate RHYTHM: regular rhythm HEART SOUNDS: S1 normal heart sound present and S2 normal heart sound present GI: COMMON NORMALS: Normal to inspection, nondistended, normoactive bowel sounds present, Soft to palpation and non-tender PALPATION: Yes Soft to palpation Extremity: COMMON NORMALS: no pedal edema NARRATIVE EXTREMITY EXAM: Bilateral extremity edema, nonpitting Neuro: COMMON NORMALS: patient oriented x3 SENSORIUM/ORIENTATION: Yes oriented to person, Yes oriented to place and No oriented to time Psych: COMMON NORMALS: mental status grossly normal Data : 04/22/21 08:09 04/25/21 07:27 A&P Assessment and plan (1) Atrial fibrillation: Currently rate controlled: Continue diltiazem 180 mg po daily Sotalol 80 mg p.o. twice daily Currently she is not a candidate of anticoagulation, as she recently had a subdural hematoma. She did get one dose of Lovenox subcu we will continue to monitor Status: Acute Qualifiers: Atrial fibrillation type: unspecified Qualified Code(s): I48.91 - Unspecified atrial fibrillation (2) Subdural hematoma: Patient was seen by neurosurgery at [facility], their plan is to do a repeat CT head without contrast in 4 weeks time to decide on the future course of long-term anticoagulation given her history of A. fib as well as DVT. They also plan to see her in 3 to 4 weeks for suture removal. Status: Acute (3) CHF (congestive heart failure): HFrEF currently compensated. Continue Lasix 40 mg daily Monitor intake output Daily weight I/O charting Decrease Lasix to 40 mg daily, 1 dose potassium replacement today K>4, MG>2 Status: Acute Qualifiers: Heart failure type: diastolic Heart failure chronicity: chronic Qualified Code(s): I50.32 - Chronic diastolic (congestive) heart failure (4) Type 2 diabetes mellitus: LDSSI FSG Carbohydrate consistent diet Status: Acute (5) Pulmonary hypertension: Currently she is at her baseline home oxygen requirement on ambulation. Status: Acute (6) Essential hypertension: Status: Acute (7) Bipolar affective, mixed, sev w/ psych: Psych on board. Appreciate recommendation Status: Deleted Additional A&P Information CODE STATUS: Full code DVT prophylaxis: Pharmacologic contraindicated given subdural hematoma, is ambulating on her own We will continue to peripherally follow, Attestations Medical Necessity Statement*: Patient requires hospitalization for CHF, subdural hematoma Coding Level of Care Code Acute Barrel Assembler for [facility] Diagnoses Atrial fibrillation I48.91 Atrial fibrillation type: unspecified Subdural hematoma S06.5X9A CHF (congestive heart failure) I50.32 Heart failure type: diastolic Heart failure chronicity: chronic Type 2 diabetes mellitus E11.9 Pulmonary hypertension I27.20 Essential hypertension I10 Bipolar affective, mixed, sev w/ psych F31.64
--- NOTE | 2021-04-27 15:39 | P.PN_ITS ---
Subjective NPU Subjective: Interval history: Deepali presents today very pleased that the circumstance which appears to be that she has been accepted and will be able to be discharged tomorrow. She reports that she feels that she has gotten better since this whole ordeal started many months ago. She is okay with her guardianship circumstance and is happy about the placement where she will be getting assistance. Mental Status Exam MSE Comments: This is an obese versus morbidly obese white female in hospital scrubs with adequate grooming and appropriate eye contact. No abnormal movements. Cooperative with exam in no acute distress. Speech was more normal rate and volume. Mood described as happy, affect congruent. Thought process organized. Thought content: Patient denied suicidal or homicidal ideation, there are no delusions reported or noted, she denied auditory or visual hallucinations. Attention and concentration appeared intact and memory seems more reliable but none were formally tested. She is alert and oriented x3. Insight and judgment appear limited, but improving impulse control appears fair. Vitals/I&O/Wt Last Vital Signs Temp 97.8 F 04/27/21 14:00 Pulse 87 04/27/21 14:00 Resp 18 04/27/21 14:00 BP 94/64 04/27/21 14:00 Pulse Ox 91 04/27/21 14:00 Data NPU : 04/22/21 08:09 04/25/21 07:27 A&P Additional A&P Information (1) Major depression in partial remission: (2) S/P evacuation of subdural hematoma: (3) Type 2 diabetes mellitus: (4) CHF (congestive heart failure): (5) Pulmonary hypertension: (6) Essential hypertension: (7) Atrial fibrillation: Additional A&P Information Ivette Wheeler is a 61 carlitos old female who was being transferred to the neuropsychiatric unit from the medical unit after being transferred back from an outside hospital for repair of her subdural hematoma having previously been on the unit.The main focus of her admission to the neuropsychiatric unit will be to provide support as we are seeking guardianship and assisting with placement options. RECOMMENDATION AND PLAN: 1. Continue current medication. 2. Continue every 15 minute checks for safety. 3. Encourage individual, group and milieu therapies. 4. Will follow hospitalist's recommendations on medical comorbidities. 5. It appears we will be able to discharge her tomorrow but definitely by Friday. 6. Guardianship granted. Involuntary Hold Information 96 Hour Hold: 96 Hour Involuntary Admission: No Attestations NPU Medical Necessity Statement*: Inpatient hospitalization is medically necessary and clinically appropriate event and at this time. Will monitor medications any changes indicated. The patient has been admitted to inpatient psychiatry to ensure safety and functionality at the time of discharge and appropriate oversight which has been obtained and she has been accepted to the facility. Possible discharge in the morning but if not then by Friday. Coding Level of Care Code Acute Technical System Analyst for Jimmie Arias
[2021-04-27] MEDS: hydrocortisone 2.5% cream 28 gm 1 APPLIC TOPICAL (15:45)
[2021-04-27 16:45] LABS: Glucose Point of Care 103 mg/dL (70-110)
[2021-04-27 20:55] VITALS: PULSE 80; RESP 18; O2SAT 97
[2021-04-27 20:58] LABS: Glucose Point of Care 96 mg/dL (70-110)
[2021-04-27 22:00] VITALS: BP 106/72; PULSE 78; RESP 17; TEMP 36.7; O2SAT 96
[2021-04-27] MEDS: trazodone 50 mg Tablet PO (23:20)
[2021-04-27] MEDS: OLANZapine 5 mg ODT PO (23:21)
[2021-04-28] MEDS: diphenhydrAMINE 25 mg Capsule PO (00:22)
[2021-04-28] MEDS: ibuprofen 800 mg tablet PO ×2 (00:22→21:50)
--- NOTE | 2021-04-28 00:47 | PC.NURSE ---
Mirela received zyprexa 5mg PO for anxiety, trazadone 50mg PO for sleep, and benardryl 25mg for itching. Medication effective when reassessed.
[2021-04-28] MEDS: acetaminophen 325 mg Tablet 650 MG PO ×3 (04:20→17:59)
[2021-04-28 06:00] VITALS: BP 106/72; PULSE 78; RESP 17; TEMP 36.7; O2SAT 96
[2021-04-28 06:32] VITALS: BP 109/77; PULSE 89; RESP 17; TEMP 36.7; O2SAT 98
[2021-04-28 06:33] LABS: Glucose Point of Care 100 mg/dL (70-110)
[2021-04-28] MEDS: pantoprazole DR 40 mg Tablet PO ×2 (09:30→20:06)
[2021-04-28] MEDS: dilTIAZem ER (24HR) 180 mg Capsule PO (09:30)
[2021-04-28] MEDS: sertraline 50 mg Tablet PO (09:30)
[2021-04-28] MEDS: levothyroxine 150 mcg Tablet PO (09:30)
[2021-04-28] MEDS: sotalol 80 mg Tablet PO ×2 (09:31→20:06)
[2021-04-28 09:44] VITALS: PULSE 89; RESP 18; O2SAT 98
[2021-04-28] MEDS: ondansetron 4 MG Tablet PO (10:06)
[2021-04-28 10:52] LABS: Glucose Point of Care 117 mg/dL (70-110)
[2021-04-28 14:00] VITALS: BP 100/70; PULSE 100; RESP 18; TEMP 36.8; O2SAT 90
[2021-04-28] MEDS: diclofenac 1% Topical Gel 100 gm 1 APPLIC TOPICAL ×3 (14:22→21:28)
[2021-04-28 16:29] LABS: Glucose Point of Care 103 mg/dL (70-110)
--- NOTE | 2021-04-28 19:17 | P.PN_ITS ---
Subjective NPU Subjective: Interval history: Deepali presented today continuing to be in better spirits. She took the news that the place she is going to live did not get the bed and so her discharge is been placed back to Friday well. She endorsed knowing that the end is in sight and that the question of when and not if makes things easier. We talked some about her recollection of the events after her subdural hematoma was discovered and she was transferred to [facility]. She is appreciative of the help she is gotten at [facility]. Mental Status Exam MSE Comments: This is an obese versus morbidly obese white female in hospital scrubs with adequate grooming and appropriate eye contact. No abnormal movements. Cooperative with exam in no acute distress. Speech was more normal rate and volume. Mood described as pretty good, affect congruent. Thought process organized. Thought content: Patient denied suicidal or homicidal ideation, there are no delusions reported or noted, she denied auditory or visual hallucinations. Attention and concentration appeared intact and memory seems more reliable but none were formally tested. She is alert and oriented x3. Insight and judgment appear limited, but improving impulse control appears fair. Vitals/I&O/Wt Last Vital Signs Temp 98.0 F 04/28/21 20:53 Pulse 95 04/28/21 21:32 Resp 16 04/28/21 21:32 BP 95/69 04/28/21 20:53 Pulse Ox 95 04/28/21 21:32 Data NPU : 04/22/21 08:09 04/25/21 07:27 A&P Additional A&P Information (1) Major depression in partial remission: (2) S/P evacuation of subdural hematoma: (3) Type 2 diabetes mellitus: (4) CHF (congestive heart failure): (5) Pulmonary hypertension: (6) Essential hypertension: (7) Atrial fibrillation: Additional A&P Information Ivette Wheeler is a 61 carlitos old female who was being transferred to the [facility] ropsychiatric unit from the medical unit after being transferred back from an outside hospital for repair of her subdural hematoma having previously been on the unit.The main focus of her admission to the neuropsychiatric unit will be to provide support as we are seeking guardianship and assisting with placement options. RECOMMENDATION AND PLAN: 1. Continue current medication. 2. Continue every 15 minute checks for safety. 3. Encourage individual, group and milieu therapies. 4. Will follow hospitalist's recommendations on medical comorbidities. 5. It appears we will be able to discharge on Friday. 6. Guardianship granted. Involuntary Hold Information 96 Hour Hold: 96 Hour Involuntary Admission: No Attestations NPU Medical Necessity Statement*: Inpatient hospitalization is medically necessary and clinically appropriate event and at this time. Will monitor medications any changes indicated. The patient has been admitted to inpatient psychiatry to ensure safety and functionality at the time of discharge and appropriate oversight which has been obtained and she has been accepted to the facility. Possible discharge by Friday. Coding Level of Care Code Acute Mobile Disc Jockey for Jimmie Arias
[2021-04-28] MEDS: hyDROXYzine 25 mg Capsule 50 MG PO (20:06)
[2021-04-28] MEDS: trazodone 50 mg Tablet PO (20:06)
[2021-04-28 20:47] LABS: Glucose Point of Care 99 mg/dL (70-110)
[2021-04-28 20:53] VITALS: BP 95/69; PULSE 89; RESP 18; TEMP 36.7; O2SAT 98
[2021-04-28 21:32] VITALS: PULSE 95; RESP 16; O2SAT 95
[2021-04-28] MEDS: OLANZapine 5 mg ODT PO (23:46)
[2021-04-29] MEDS: acetaminophen 325 mg Tablet 650 MG PO ×5 (02:43→23:19)
--- NOTE | 2021-04-29 03:00 | PC.NURSE ---
PRN Tylenol, Vistaril,ibuprofen, zofran, and trazadone for pain, nausea, and insomnia. Patient tolerated well. Will continue to monitor.
[2021-04-29 06:00] VITALS: BP 111/76; PULSE 93; RESP 18; TEMP 36.5; O2SAT 99
[2021-04-29 06:12] LABS: Glucose Point of Care 89 mg/dL (70-110)
--- NOTE | 2021-04-29 09:09 | PM.NPN ---
Subjective NPU Subjective: Interval history: Deepali presents today continuing to show improvement from her previous hospitalization and during this 1. She is pleasant and amenable to the challenges that have occurred in her placement. We initially had a plan for discharge on Friday but they did not have a physical bed for her that as opposed to be different tomorrow. She denied any additional issues and looks forward to the likely discharge tomorrow. Mental Status Exam MSE Comments: This is an obese versus morbidly obese white female in hospital scrubs with adequate grooming and appropriate eye contact. No abnormal movements. Cooperative with exam in no acute distress. Speech was more normal rate and volume. Mood described as pretty good, affect congruent. Thought process organized. Thought content: Patient denied suicidal or homicidal ideation, there are no delusions reported or noted, she denied auditory or visual hallucinations. Attention and concentration appeared intact and memory seems more reliable but none were formally tested. She is alert and oriented x3. Insight and judgment appear limited, but improving impulse control appears fair. Vitals/I&O/Wt Last Vital Signs Temp 97.7 F 04/29/21 06:00 Pulse 93 04/29/21 06:00 Resp 18 04/29/21 06:00 BP 111/76 04/29/21 06:00 Pulse Ox 99 04/29/21 06:00 Weight last 48 hrs Weight 98.061 kg Data NPU : 04/22/21 08:09 04/25/21 07:27 A&P Additional A&P Information (1) Major depression in partial remission: (2) S/P evacuation of subdural hematoma: (3) Type 2 diabetes mellitus: (4) CHF (congestive heart failure): (5) Pulmonary hypertension: (6) Essential hypertension: (7) Atrial fibrillation: Additional A&P Information Ivette Wheeler is a 61 carlitos old female who was being transferred to the neuropsychiatric unit from the medical unit after being transferred back from an outside hospital for repair of her subdural hematoma having previously been on the unit.The main focus of her admission to the neuropsychiatric unit will be to provide support as we are seeking guardianship and assisting with placement options. RECOMMENDATION AND PLAN: 1. Continue current medication. 2. Continue every 15 minute checks for safety. 3. Encourage individual, group and milieu therapies. 4. Will follow hospitalist's recommendations on medical comorbidities. 5. It appears we will be able to discharge on Friday. 6. Guardianship granted. Involuntary Hold Information 96 Hour Hold: 96 Hour Involuntary Admission: No Attestations NPU Medical Necessity Statement*: Inpatient hospitalization is medically necessary and clinically appropriate event and at this time. Will monitor medications any changes indicated. The patient has been admitted to inpatient psychiatry to ensure safety and functionality at the time of discharge and appropriate oversight which has been obtained and she has been accepted to the facility. Possible discharge by Friday. Coding Level of Care Code Acute Electro Plater for Jimmie Arias
[2021-04-29] MEDS: potassium chloride ER 20 mEq Tablet 30 MEQ PO (09:11)
[2021-04-29] MEDS: FUROsemide 40 mg Tablet PO (09:11)
[2021-04-29] MEDS: diclofenac 1% Topical Gel 100 gm 1 APPLIC TOPICAL ×3 (09:11→21:45)
[2021-04-29] MEDS: sotalol 80 mg Tablet PO ×2 (09:11→21:44)
[2021-04-29] MEDS: dilTIAZem ER (24HR) 180 mg Capsule PO (09:12)
[2021-04-29] MEDS: levothyroxine 150 mcg Tablet PO (09:12)
[2021-04-29] MEDS: pantoprazole DR 40 mg Tablet PO ×2 (09:12→21:44)
[2021-04-29] MEDS: sertraline 50 mg Tablet PO (09:12)
[2021-04-29] MEDS: ibuprofen 800 mg tablet PO ×2 (09:37→17:42)
[2021-04-29 11:30] LABS: Glucose Point of Care 110 mg/dL (70-110)
[2021-04-29 14:00] VITALS: BP 90/64; PULSE 98; RESP 18; TEMP 36.8; O2SAT 98
[2021-04-29 16:58] LABS: Glucose Point of Care 97 mg/dL (70-110)
[2021-04-29 19:30] VITALS: PULSE 82; RESP 16; O2SAT 94
[2021-04-29] MEDS: haloperidol 5 mg Tablet PO (21:44)
[2021-04-29] MEDS: trazodone 50 mg Tablet PO (21:44)
[2021-04-29 21:48] LABS: Glucose Point of Care 100 mg/dL (70-110)
[2021-04-29 21:50] VITALS: BP 128/78; PULSE 92; RESP 16; TEMP 37; O2SAT 90
[2021-04-29] MEDS: nystatin powder 15 gm Btl 1 APPLIC TOPICAL (23:19)
[2021-04-29] MEDS: cetylpyridinium Lozenge 1 EACH MUCOUS MEM (23:19)
--- NOTE | 2021-04-29 23:20 | PC.NURSE ---
Addendum entered by Mohini Weaver RN 04/30/21 02:04: medications were effective, pt is resting in her room. Original Note: PRN's @3880 Tylenol 650 mg PO given for pain,. @4908 Haldol 5mg PO given for intrusive thoughts.,
--- NOTE | 2021-04-29 23:29 | PC.NURSE ---
Nystatin powder Skin Irritation left breast, looks as if it may contain yeast, nystatin powder applied to the area after cleansing to reduce irriation. Pt will attempt to keep the area free from moisture.
[2021-04-30] VITALS (7 sets, daily range): BP systolic 92–132; BP diastolic 60–72; PULSE 84–117; RESP 17–20; TEMP 36.3–36.7; O2SAT 90–96
--- NOTE | 2021-04-30 01:55 | PC.NURSE ---
PM Assessment Pt is on 2lnc at night with 1:1 sitter at bedside, reports headache that is mild at this time, prn tylenol 650mg given to pt for relief. Pt has skin breakdown occuring under her left breast, nystatin powder placed under breast to combat possibility of increasing yeast in this moist area. Pt is at baseline, much improved since 1st admission, she is looking forward to her release to [facility] in the morning. Her Guardian: Joshua Reardon is aware. Dr. Garcia would like to be called prior to discharge of this patient.
[2021-04-30] MEDS: ibuprofen 800 mg tablet PO ×2 (02:50→21:33)
[2021-04-30 06:22] LABS: Glucose Point of Care 101 mg/dL (70-110)
--- NOTE | 2021-04-30 08:11 | PC.NURSE ---
REFUSED SCHEDULED LASIX AND NORMANOR CON THIS MORNING
[2021-04-30] MEDS: pantoprazole DR 40 mg Tablet PO ×2 (08:13→21:31)
[2021-04-30] MEDS: sertraline 50 mg Tablet PO (08:13)
[2021-04-30] MEDS: acetaminophen 325 mg Tablet 650 MG PO ×3 (08:13→17:33)
[2021-04-30] MEDS: levothyroxine 150 mcg Tablet PO (08:13)
[2021-04-30] MEDS: dilTIAZem ER (24HR) 180 mg Capsule PO (08:13)
[2021-04-30] MEDS: sotalol 80 mg Tablet PO ×2 (08:13→21:31)
[2021-04-30 11:39] LABS: Glucose Point of Care 88 mg/dL (70-110)
--- NOTE | 2021-04-30 13:35 | P.DS_ITS ---
Diagnoses at Discharge Discharge Diagnosis (1) Atrial fibrillation: Status: Acute Qualifiers: Atrial fibrillation type: unspecified Qualified Code(s): I48.91 - Unspecified atrial fibrillation (2) Subdural hematoma: Status: Acute (3) CHF (congestive heart failure): Status: Acute Qualifiers: Heart failure chronicity: chronic Heart failure type: diastolic Qualified Code(s): I50.32 - Chronic diastolic (congestive) heart failure (4) Type 2 diabetes mellitus: Status: Acute (5) Pulmonary hypertension: Status: Acute (6) Essential hypertension: Status: Acute Permanent problem details: The patient is on both Paxil 10 mg daily and Zoloft 50 mg daily. We will discontinue the Paxil and make sure she has no withdrawal symptoms. (7) Bipolar affective, mixed, sev w/ psych: Status: Deleted Reason for Visit Reason for Visit: Tramatic Subdual Hematoma, Encephalopathy, AFib Brief History: History of Present Illness Ivette Wheeler is a 61 year old female with a history of bipolar disorder, psychosis and altered mental status as well as an extensive past medical history, including drainage of a recent subdural hematoma. She was transferred yesterday from [facility] in [place]. Dr. Vega's admission note states: Ivette Wheeler is a 61 year old female with past medical history of coronary artery disease status post stent, CABG, HFrEF, A. fib (was on Eliquis has been held due to recent history of subdural hematoma), htn,dvt, COVID -19, DM,BPD, recent large left frontal and frontoparietal subdural hematoma secondary to fall (received adenaxate alpha ) s/p left bur hole drainage. Has been accepted as a direct admission after being transferred from [facility]. Upon arrival patient was seen and examined. Currently she is stating that after a long 5-hours journey she feels tired, denies any chest pain, shortness of breath, headache, nausea, vomiting, fever, cough, weakness. Dr. Landa from psychiatry has been consulted, for possible transfer to Neuropsych Unit, once the patient is medically stable.Psychiatry is likely pursuing guardianship. Patient was seen this morning. She presented in a fairly cheerful mood and remembered who I was from the last admission. She says she is doing fairly well now. She denies feeling depressed or euphoric. Her main worry is where she is going after the hospital and how she will get there. She denies auditory and visual hallucinations. She denies suicidal and homicidal ideation. We had a fairly extensive discussion about the guardianship application we filed prior to her transfer to [facility]. She now sees that guardianship would be a good idea for her. She says I need help with my thinking so I do not make mistakes. I told the patient she could transfer to the psychiatry unit when she is medically stable. I told her the importance of eating, drinking fluids, and taking her medication regularly. Unless she is doing those things she will not be able to come. She said she understood and would do her best. Psychiatric history: The patient is currently taking the following psychiatric medications: Sertraline 50 mg daily, Abilify 15 mg daily, and melatonin 6 mg at bedtime. The patient was admitted to the neuropsychiatric unit from 02/28?03/02/2021; 03/10?03/20/2021; and from 03/21?04/03/2021, when she was transferred to [facility]. On the NPU, she often had unstable mood and perseverative thinking. Guardianship application was presented to the court, but no hearing had been held prior to her transfer. Hospital Course Hospital Course She quickly acclimated to the individual, group and milieu therapies provided. She was initially on the medical unit actually was transferred back after treatment for her subdural hematoma. She was maintain on her medication and was awaiting guardianship. Guardianship was granted and the facility was identified that would help her manage her needs. She showed modest improvement and significant improvement over her initial presentation. She was able to contract for safety prior to discharge. During the hospitalization, patient had routine laboratory studies which were within normal limits except for few outliers. Additionally there was a general medical evaluation which was also within normal limits and revealed no new acute processes. Discharge Summary: At the time of discharge, she denied psychosis or lethality. Mood and anxiety were well managed. Patient endorsed a plan to follow-up with the aftercare recommendations of the treatment team. Patient was evaluated and deemed to be absent credible lethality, and had achieved the maximum benefit from an inpatient hospitalization, so was discharged. Involuntary Hold Information 96 Hour Hold: 96 Hour Involuntary Admission: No Mental Status Exam MSE Comments: This is an obese versus morbidly obese white female in hospital scrubs with adequate grooming and appropriate eye contact. No abnormal movements. Cooperative with exam in no acute distress. Speech was more normal rate and volume. Mood described as good, affect congruent. Thought process organized. Thought content: Patient denied suicidal or homicidal ideation, there are no delusions reported or noted, she denied auditory or visual hallucinations. Attention and concentration appeared intact and memory seems more reliable but none were formally tested. She is alert and oriented x3. Insight and judgment appear improving, impulse control appears fair. Discharge Data Data Completed and Pending: Labs from last 24 hours 04/30/21 04/30/21 04/29/21 11:37 06:16 21:42 POC Glucose 88 101 100 04/29/21 16:40 POC Glucose 97 Vitals: Last Vital Signs Temp 98.1 F 04/30/21 08:52 Pulse 98 04/30/21 08:52 Resp 18 04/30/21 08:52 BP 100/71 04/30/21 08:52 Pulse Ox 96 04/30/21 08:52 Discharge Plan Discharge Patient Disposition: Xfer SNF Condition: Stable Prescriptions: New Advair Diskus 250-50 mcg/dose Blister With Device 1 puff inhalation BID.RESPIRATORY 30 Days Qty: 1 RF: 0 Continued Humalog U-100 Insulin 100 unit/mL Solution See Rx Instructions .ROUTE .COMPLEX RF: 0 sotalol 80 mg tablet 80 mg PO BID@0900,2100 14 Days Qty: 28 RF: 0 hydroxyzine pamoate 50 mg Capsule 50 mg PO TID PRN (Reason: Anxiety) 14 Days Qty: 42 RF: 0 pantoprazole 40 mg Tablet,Delayed Release (Dr/Ec) 40 mg PO BID 14 Days Qty: 28 RF: 0 Euthyrox 150 mcg tablet 150 mcg PO DAILY 14 Days Qty: 14 RF: 0 sertraline 50 mg Tablet 50 mg PO DAILY 14 Days Qty: 14 RF: 0 Changed furosemide 40 mg tablet 40 mg PO DAILY PRN (Reason: Edema) 14 Days Qty: 14 RF: 0 Discontinued nystatin [Nystop] 100,000 unit/gram Powder 1 applic topical 00,2100 Qty: 30 RF: 0 fenofibrate nanocrystallized 145 mg tablet 145 mg PO DAILY Qty: 30 RF: 0 metformin 750 mg tablet extended release 24 hr 750 mg PO BID RF: 0 fluticasone propion-salmeterol [Advair Diskus] 250-50 mcg/dose Blister With Device 1 inh INHALATION BID RF: 0 diltiazem HCl 240 mg Capsule,Extended Release 24 Hr 240 mg PO DAILY RF: 0 melatonin 3 mg Tablet 6 mg PO BEDTIME RF: 0 potassium chloride 20 mEq/15 mL Liquid 10 meq PO DAILY RF: 0 megestrol 40 mg Tablet 80 mg PO DAILY RF: 0 labetalol 5 mg/mL Solution 10 mg IV Q4H RF: 0 aripiprazole [Abilify] 15 mg Tablet 15 mg PO DAILY RF: 0 omega-3 fatty acids [Fish Oil Concentrate] 1,000 mg capsule 2,000 mg PO DAILY RF: 0 Discharge Orders: Discharge Order (Routine); Ordered 05/01/21 Ordered By: Bienvenido Heller Referrals: Neurosurgery, [facility] [Other] - 2 weeks Yaw Sinclair MD [Primary Care Provider] - 4-7 days Discharge Diet: Cardiac and Diabetic Discharge Activity: Resume usual activity Patient Instructions: Generalized Anxiety Disorder, Aripiprazole (By mouth), Opioid Safety Activity Restrictions/Additional Instructions: Please follow-up with [facility] neurosurgery with plans to repeat CT of the head to follow-up on resolution of subdural hematoma. Please discuss with your primary doctor also based on neurosurgery recommendations when it may be safe to resume blood thinner medications for protection from stroke with atrial fibrillation and history of blood clots. Please continue Lasix, continue measuring weights daily, record values. Contact your doctor's office in case you are gaining more than 3 pounds in 2 days. You may have to take extra diuretic. Please follow-up with your primary doctor regards to heart failure, have them reassess volume status, kidney function, electrolytes. Please measure your heart rates at least daily while at rest, continue heart medications for atrial fibrillation. Visit with your primary doctor. Please continue to monitor blood glucose. Monitor your blood pressures. Follow-up with your primary doctor with regards to diabetes, high blood pressure and other chronic conditions. Discharge Attestations NPU Time Spent in Discharge Care*: greater than 30 min Specific Discharge Activities: Specific discharge activities: educating patient, discussing with family independence case manager/social workers/dc planners, documenting/other paperwork and evaluating patient/reviewing data Status at Discharge: Cognitive status at discharge: cognitively intact , Behavioral status at discharge: cooperative , Coding Level of Care Code Acute Chg FW OH note Diagnoses Atrial fibrillation I48.91 Atrial fibrillation type: unspecified Subdural hematoma S06.5X9A CHF (congestive heart failure) I50.32 Heart failure chronicity: chronic Heart failure type: diastolic Type 2 diabetes mellitus E11.9 Pulmonary hypertension I27.20 Essential hypertension I10 Bipolar affective, mixed, sev w/ psych F31.64
--- NOTE | 2021-04-30 14:10 | NPU.GN ---
[facility] NeuroPsych Unit Group Topic:Depression BINGO General Mood of Group: General mood was talkative. Seemed like most everyone in the group was talkative. This group was exceptionable large. They seemed to all want to speak at the same time. This patient came to group on time and dressed appropriate with good hygiene. This patient did participate and did ask questions. She did leave group a tad early due to feeling dizzy but did come back and participated.
--- NOTE | 2021-04-30 16:25 | PM.NPN ---
Subjective NPU Subjective: Interval history: Deepali presents today excited about being discharged with the plans being made by the treatment team. However the guardian was unable to make the appropriate arrangements to get her to the facility. She was very disappointed but adaptable to the situation. In reviewing the medication it appeared her Abilify had dropped off. We discussed the risk benefits and alternatives of starting that small evening dose of 5 mg and she understood and agreed to proceed as is documented in this note. Mental Status Exam MSE Comments: This is an obese versus morbidly obese white female in hospital scrubs with adequate grooming and appropriate eye contact. No abnormal movements. Cooperative with exam in no acute distress. Speech was more normal rate and volume. Mood described as good, affect congruent. Thought process organized. Thought content: Patient denied suicidal or homicidal ideation, there are no delusions reported or noted, she denied auditory or visual hallucinations. Attention and concentration appeared intact and memory seems more reliable but none were formally tested. She is alert and oriented x3. Insight and judgment appear improving, impulse control appears fair. Vitals/I&O/Wt Last Vital Signs Temp 97.8 F 04/30/21 14:00 Pulse 99 04/30/21 14:00 Resp 18 04/30/21 14:00 BP 92/60 04/30/21 14:00 Pulse Ox 96 04/30/21 14:00 Weight last 48 hrs Weight 98.061 kg Data NPU : 04/22/21 08:09 04/25/21 07:27 A&P Additional A&P Information (1) Major depression in partial remission: (2) S/P evacuation of subdural hematoma: (3) Type 2 diabetes mellitus: (4) CHF (congestive heart failure): (5) Pulmonary hypertension: (6) Essential hypertension: (7) Atrial fibrillation: Additional A&P Information Ivette Wheeler is a 61 carlitos old female who was being transferred to the neuropsychiatric unit from the medical unit after being transferred back from an outside hospital for repair of her subdural hematoma having previously been on the unit.The main focus of her admission to the neuropsychiatric unit will be to provide support as we are seeking guardianship and assisting with placement options. RECOMMENDATION AND PLAN: 1. Continue current medication. Abilify 5 mg p.o. nightly was reinitiated. 2. Continue every 15 minute checks for safety. 3. Encourage individual, group and milieu therapies. 4. Will follow hospitalist's recommendations on medical comorbidities. 5. Discharge orders and paperwork already in will leave tomorrow morning first thing. 6. Guardianship granted. Involuntary Hold Information 96 Hour Hold: 96 Hour Involuntary Admission: No Attestations NPU Medical Necessity Statement*: Inpatient hospitalization is medically necessary and clinically appropriate event and at this time. Will monitor medications any changes indicated. The patient has been admitted to inpatient psychiatry to ensure safety and functionality at the time of discharge and appropriate oversight which has been obtained and she has been accepted to the facility. Plan for discharge in the morning. Coding Level of Care Code Acute Tube And Rod Straightener for Jimmie Arias
[2021-04-30 17:08] LABS: Glucose Point of Care 85 mg/dL (70-110)
[2021-04-30] MEDS: ARIPiprazole 10 mg Tablet 5 MG PO (21:00)
[2021-04-30] MEDS: potassium chloride ER 10 mEq Tablet 30 MEQ PO (21:30)
[2021-04-30] MEDS: trazodone 50 mg Tablet PO (21:31)
[2021-04-30] MEDS: diclofenac 1% Topical Gel 100 gm 1 APPLIC TOPICAL (21:31)
[2021-04-30] MEDS: nystatin powder 15 gm Btl 1 APPLIC TOPICAL (21:32)
[2021-04-30 22:17] LABS: Glucose Point of Care 111 mg/dL (70-110)
[2021-05-01] MEDS: acetaminophen 325 mg Tablet 650 MG PO (01:53)
[2021-05-01 06:00] VITALS: BP 125/85; PULSE 100; TEMP 37.1; O2SAT 97
[2021-05-01 07:06] LABS: Glucose Point of Care 73 mg/dL (70-110)
[2021-05-01] MEDS: levothyroxine 150 mcg Tablet PO (08:00)
[2021-05-01] MEDS: sotalol 80 mg Tablet PO (08:00)
[2021-05-01] MEDS: dilTIAZem ER (24HR) 180 mg Capsule PO (08:00)
--- NOTE | 2021-05-01 08:03 | PC.NURSE ---
refused scheduled zoloft, protonix, klor con, lasix
[2021-05-01 08:09] VITALS: BP 125/85; PULSE 100; TEMP 37.1; O2SAT 97
--- NOTE | 2021-05-01 08:46 | P.PN_ITS ---
Subjective Subjective: Interval history: She reports he is doing well. She denies any complaints. She is looking forward to discharge today. Vitals/I&O/Wt Last Vital Signs Temp 98.8 F 05/01/21 08:09 Pulse 100 05/01/21 08:09 Resp 17 04/30/21 21:03 BP 125/85 05/01/21 08:09 Pulse Ox 97 05/01/21 08:09 Physical Exam Const: COMMON NORMALS: no acute distress and alert GENERAL APPEARANCE: cooperative NUTRITIONAL APPEARANCE: obese ORIENTATION/CONSCIOUSNESS: Yes awake HENMT: COMMON NORMALS: oropharynx normal Neck/C-Spine: COMMON NORMALS: no JVD Resp: COMMON NORMALS: normal respiratory effort and clear to auscultation bilaterally AUSCULTATION: clear to auscultation bilaterally Cardio: COMMON NORMALS: no JVD, regular rhythm, S1 normal heart sound present, S2 normal heart sound present and No murmurs present (Cardio) RHYTHM: regular rhythm HEART SOUNDS: S1 normal heart sound present and S2 normal heart sound present GI: COMMON NORMALS: Normal to inspection, nondistended, normoactive bowel sounds present, Soft to palpation and non-tender PALPATION: Yes Soft to palpation Extremity: COMMON NORMALS: no joint enlargement and no pedal edema Neuro: COMMON NORMALS: moves all extremities SENSORIUM/ORIENTATION: Yes alert Skin: COMMON NORMALS: no rashes or lesions noted GENERAL SKIN EXAM: no rashes or lesions noted Data : 04/22/21 08:09 04/25/21 07:27 A&P Assessment and plan (1) Atrial fibrillation: Continue rhythm control with sotalol and diltiazem. Currently she is off of anticoagulation, as she recently had a subdural hematoma. Please revisit with regards to when it would be safe to restart anticoagulation with clearance from neurosurgery. Status: Acute Qualifiers: Atrial fibrillation type: unspecified Qualified Code(s): I48.91 - Unspecified atrial fibrillation (2) Subdural hematoma: Follow-up with [facility] neurosurgery. Patient was seen by neurosurgery at [facility], their plan is to do a repeat CT head without contrast in 4 weeks time to decide on the future course of long-term anticoagulation given her history of A. fib as well as DVT. They also plan to see her in 3 to 4 weeks for suture removal. Status: Acute (3) CHF (congestive heart failure): Continue diuretic. Follow-up with primary provider for reassessment of volume status, renal function, electrolytes. HFrEF currently compensated. Continue Lasix 40 mg daily Status: Acute Qualifiers: Heart failure type: diastolic Heart failure chronicity: chronic Qualified Code(s): I50.32 - Chronic diastolic (congestive) heart failure (4) Type 2 diabetes mellitus: LDSSI FSG Carbohydrate consistent diet Status: Acute (5) Pulmonary hypertension: Currently not requiring any supplemental oxygen on room air. Status: Acute (6) Essential hypertension: Status: Acute (7) Bipolar affective, mixed, sev w/ psych: Post discharge follow-up as per psychiatry, discussed with staff. Status: Deleted Additional A&P Information She is being discharged to medical facility today. Attestations Medical Necessity Statement*: As per primary team. Coding Level of Care Code Acute Data Processor for [facility] Fwd Diagnoses Atrial fibrillation I48.91 Atrial fibrillation type: unspecified Subdural hematoma S06.5X9A CHF (congestive heart failure) I50.32 Heart failure type: diastolic Heart failure chronicity: chronic Type 2 diabetes mellitus E11.9 Pulmonary hypertension I27.20 Essential hypertension I10 Bipolar affective, mixed, sev w/ psych F31.64
== END 2021-05-01 09:02 | disposition skilled nursing facility (03) | DRG 309 ==
LOC: MEDSURG 04-20 08:08 → NP 04-21 20:04
PROVIDERS: Family Medicine; Psychiatry & Neurology Child & Adolescent Psychiatry; Admitting Provider Internal Medicine; PCP Family Medicine; Visit Provider Psychiatry & Neurology Psychiatry
DX: I48.91 Unspecified atrial fibrillation (principal); I50.32 Chronic diastolic (congestive) heart failure; G25.9 Extrapyramidal and movement disorder, unspecified; S06.5X9D Traumatic subdural hemorrhage with loss of consciousness of unspecified duration, subsequent encounter; I25.10 Atherosclerotic heart disease of native coronary artery without angina pectoris; Z95.5 Presence of coronary angioplasty implant and graft; Z95.1 Presence of aortocoronary bypass graft; I11.0 Hypertensive heart disease with heart failure; Z86.718 Personal history of other venous thrombosis and embolism; Z86.16 Personal history of COVID-19; E11.9 Type 2 diabetes mellitus without complications; I08.1 Rheumatic disorders of both mitral and tricuspid valves; I27.20 Pulmonary hypertension, unspecified; F31.77 Bipolar disorder, in partial remission, most recent episode mixed; Z79.4 Long term (current) use of insulin; X58.XXXD Exposure to other specified factors, subsequent encounter
CPT/HCPCS: 36415; 36416; 80048; 80053; 82962; 83735; 85025; 94640; 96372; 97116; 97150; 97161; 97165; G0378; G0379; J1650; J1815; Q0162

== ENCOUNTER 2021-07-20 15:18 | Inpatient (IN) | payer OTHER, SELFPAY ==
[2021-07-20] VITALS (8 sets, daily range): BP systolic 119–127; BP diastolic 79; PULSE 90–122; RESP 8–30; TEMP 36.7; O2SAT 91–100; BMI 37.8; BMI 38.8
--- NOTE | 2021-07-20 15:23 | ECG_ITS ---
[facility] Test Date: 2021-07-20 Pat Name: Ivette Wheeler Department: Room: Gender: Female Director Of Customer Service: : 1960 Requested By: Jean Claude Bonds Order Number: [id number] [place] MD: Medardo Huddleston M.D. Measurements Intervals [place] Rate: 118 P: IL: QRS: 14 QRSD: 90 T: 53 QT: 312 QTc: 439 Interpretive Statements ATRIAL FIBRILLATION WITH RAPID VENTRICULAR RESPONSE MINIMAL ST DEPRESSION [0.025+ mV ST DEPRESSION] Compared to ECG 03/20/2021 18:48:23 ST (T wave) deviation now present Aberrant conduction of supraventricular beat(s) no longer present Ventricular premature complex(es) no longer present Myocardial infarct finding no longer present Electronically Signed On 07-21-2021 4:47:36 PLANNING OFFICIAL by Medardo Huddleston M.D. [email or web address]
--- NOTE | 2021-07-20 15:36 | XRR_ITS ---
PROCEDURE INFORMATION: Exam: XR Chest Exam date and time: 07/20/2021 3:36 PM Age: 61 years old Clinical indication: Cough and dyspnea; Additional info: Dyspnea/cough TECHNIQUE: Imaging protocol: XR of the chest. Views: 1 view. COMPARISON: CR XR chest 1V portable [id number] 04/03/2021 3:24 PM FINDINGS: Lungs: Ill-defined opacities at the lung bases, potentially atelectasis. Pleural spaces: Suspected small volume pleural effusions. No pneumothorax. Heart/Mediastinum: Mild cardiomegaly and central pulmonary vascular congestion. Bones/joints: Sternotomy wires noted. Visualized osseous structures are intact. XR/XR chest 1V portable [id number] IMPRESSION: 1. Suspected small volume pleural effusions. 2. Ill-defined opacities at the lung bases, potentially atelectasis given suspected pleural effusions. 3. Mild cardiomegaly and central pulmonary vascular congestion.
[2021-07-20 15:49] LABS: ABG PCO2 45.8 mmHg (35-45); ABG PH Result 7.42 (7.35-7.45); Alveolar-Arterial Oxygen Gradi 6.2 mmHg (5-10); Arterial Blood Gas Hematocrit 40.5 % (37-47); Base Excess ABG 4.6 mmol/L (-2.0-2.0); Blood Gas Sample Type Arterial; Carboxyhemoglobin 1.5 %THgb (0.4-20.1); HCO3 ABG 29.9 mmol/L (22-26); HGB O2 Sat 79.3 % (95-100); Ionized Calcium Level - ABG 1.2 mmol/L (1.1-1.4); Methemoglobin 0.8 % (0.4-1.5); Oxygen Saturation ABG 81.2; PO2 ABG 44.3 mmHg (80.0-100.0); Potassium Level - ABG 4.2 mmol/L (3.5-5.0); Total Hemoglobin 13.2 g/dL (12-16)
[2021-07-20 15:51] LABS: Blood Gas Sample Site Brachial, right; Oxygen Device NC
--- NOTE | 2021-07-20 15:52 | W.ED.SOB ---
HPI - SOB/Dyspnea General: Chief Complaint: Shortness of Breath/Dyspnea Stated Complaint: SOB/ AFIB Time Seen by Provider: 07/20/21 15:23 History of Present Illness: HPI Narrative: 61-year-old female presents emergency room with complaint of shortness of breath. Room air O2 sat on arrival is in the 70s. Patient reports 20 pound weight gain in the last 2 weeks. She is 4+ pitting edema to the level of the umbilicus. She is only been using her Lasix as needed took just 1 tablet this morning. She has a known history of atrial fibrillation and is on diltiazem and sotalol for that she has not missed any doses or change her dose slightly. She is tachycardic and has a palpitation sensation along with a shortness of breath. She not having any chest pain at this time. MD elicited complaint: shortness of breath and cough Pertinent past history: congestive heart failure Onset (ago): week(s) (2) Timing: constant Severity: moderate Exacerbating factors: lying flat and exertion Relieving factors: rest and upright position Known history of: congestive heart failure Associated symptoms: Reports chest congestion, dizziness, orthopnea and palpitations; Deny abdominal pain, chest pain, cough, diaphoresis, extremity pain, fever(s), hemoptysis, lightheadedness, myalgias, nausea, paresthesias, polydipsia, polyuria, rash, sense of impending doom, syncope or vomiting Treatment prior to arrival: oxygen Review of Systems Const: Denies: fever(s) or diaphoresis ENMT: Denies: throat pain, ear or mastoid pain, nasal discharge or nasal congestion Card: Reports: palpitations and orthopnea; Denies: chest pain, lightheadedness or syncope Resp: Reports: chest congestion; Denies: hemoptysis GI: Denies: abdominal pain, nausea or vomiting : Denies: flank pain, difficulty voiding, dysuria, urinary frequency or urinary urgency Musc: Denies: extremity pain Skin/Breast: Denies: rash or pruritus Neuro: Reports: dizziness Endo: Denies: polyuria or polydipsia PFS ED PFSH: Medical History Acute psychosis ASHD (arteriosclerotic heart disease) Atherosclerosis of coronary artery of [place] heart without angina pectoris Atrial fibrillation Bilateral lower extremity edema Bipolar disorder in partial remission The patient denies history of euphoria, decreased need for sleep, increase in energy, racing thoughts, pressured speech, spending sprees etc. Therefore this diagnosis is removed. Cellulitis CHF (congestive heart failure) Chronic anticoagulation Lucy SAEGID-19 January Dyslipidemia Essential hypertension The patient is on both Paxil 10 mg daily and Zoloft 50 mg daily. We will discontinue the Paxil and make sure she has no withdrawal symptoms. Hx of deep venous thrombosis Major depression in partial remission Mitral valve regurgitation Pulmonary hypertension Subdural hematoma Tricuspid valve regurgitation Type 2 diabetes mellitus Surgical History History of coronary artery bypass graft 2005 History of coronary artery stent placement History of total vaginal hysterectomy History of tubal ligation Status post colonoscopy Family History Other CAD (coronary artery disease) Diabetes Hypertension Social History Smoking and tobacco status: never smoked Alcohol intake: current Alcohol intake frequency: holidays/special occasions only Household members: significant other Marital status: Single Physical Exam Const: GENERAL APPEARANCE: cooperative and comfortable ORIENTATION/CONSCIOUSNESS: Yes oriented to person, Yes oriented to place and Yes oriented to time HENMT: COMMON NORMALS: normocephalic, atraumatic and hearing grossly normal bilaterally HEAD & SCALP: normocephalic and atraumatic Resp: EFFORT & INSPECTION: Yes tachypneic, Yes respiratory distress and Yes uses accessory muscles AUSCULTATION: crackles and rales Cardio: RATE: tachycardic RHYTHM: abnormal rhythm irregularly irregular GI: COMMON NORMALS: Soft to palpation and No hepatosplenomegaly present AUSCULTATION: Yes normoactive bowel sounds PALPATION: Yes Soft to palpation, No Tenderness to palpation present (GI), No Guarding due to palpation present (GI) and Yes No hepatosplenomegaly present Extremity: COMMON NORMALS: normal to inspection, capillary refill normal and no calf tenderness GENERAL: Yes edema (4+) Neuro: SENSORIUM/ORIENTATION: Yes oriented to person, Yes oriented to place and Yes oriented to time Skin: COMMON NORMALS: no rashes or lesions noted GENERAL SKIN EXAM: no rashes or lesions noted Course Vital Signs: Vital signs: Vital Signs Temperature 98 F 07/23/21 04:00 Pulse Rate 97 07/23/21 05:12 Respiratory Rate 29 H 07/23/21 04:00 Blood Pressure 97/63 07/23/21 04:00 Pulse Oximetry 90 07/23/21 05:12 MDM - SOB/Dyspnea MDM Narrative: Medical decision making narrative: Patient in significant respiratory distress when she first arrived she was given IV push Cardizem which decreased her heart rate significantly she was then started on BiPAP as well. She was simultaneously started on a Cardizem drip. This controlled her rate she was given IV Lasix. She did some mild improvement. Patient will require admission for diuresis adjustment of medications to maintain rate control for her atrial fibrillation. Discussed with hospitalist orders written Lab Data: Labs: Lab Results 07/20/21 07/20/21 07/20/21 15:40 15:50 15:50 WBC Cancelled Corrected WBC Cancelled RBC Cancelled Hgb Cancelled Hct Cancelled MCV Cancelled MCH Cancelled MCHC Cancelled RDW Cancelled Plt Count Cancelled MPV Cancelled Gran % Cancelled Neut % (Auto) Cancelled Lymph % (Auto) Cancelled [place] % (Auto) Cancelled Eos % (Auto) Cancelled Baso % (Auto) Cancelled Neut # (Auto) Cancelled Lymph # (Auto) Cancelled [place] # (Auto) Cancelled Eos # (Auto) Cancelled Baso # (Auto) Cancelled Absolute Gran (aut o) Cancelled Nucleated RBC % (a uto) Cancelled Nucleated RBCs # Cancelled Specimen Type Arterial Sample Site Brachial, right ABG pH 7.42 (7.35-7.45) ABG pCO2 45.8 mmHg H mmHg (35-45) ABG pO2 44.3 mmHg L mmHg (80.0-100.0) ABG HCO3 29.9 mmol/L H mmo l/L (22-26) ABG O2 Saturation 81.2 ABG Base Excess 4.6 mmol/L H mmol /L (-2.0-2.0) Chin Test N/a A-a O2 Gradient 6.2 mmHg mmHg (5-10) Hematocrit 40.5 % % (37-47) Hgb O2 Saturation 79.3 % L % (95-100) Carboxyhemoglobin 1.5 %THgb %THgb (0.4-20.1) Methemoglobin 0.8 % % (0.4-1.5) Total Hemoglobin 13.2 g/dL g/dL (12-16) Sodium 140.0 mmol/L mmol /L Cancelled (131-143) Potassium 4.2 mmol/L mmol/L Cancelled (3.5-5.0) Glucose 105.0 mg/dL mg/dL Cancelled (70-115) Ionized Calcium 1.2 mmol/L mmol/L (1.1-1.4) O2 Delivery Device Nc O2 Liters/Min 5.0 % % Well Servicing Rig Operator ID Rieri Chloride Cancelled Carbon Dioxide Cancelled Anion Gap Cancelled BUN Cancelled Creatinine Cancelled GFR Calculation Cancelled Calculated Osmolal ity Cancelled Calcium Cancelled Iron TIBC % Saturation Unsat Iron Binding Total Bilirubin Cancelled AST Cancelled ALT Cancelled Alkaline Phosphata se Cancelled Creatine Kinase Cancelled Troponin T Baselin e NT-Pro-B Natriuret Pep Total Protein Cancelled Albumin Cancelled Globulin Cancelled Procalcitonin TSH Free T4 Free T3 07/20/21 07/20/21 07/20/21 15:50 16:12 16:12 WBC 8.4 10^3/uL 10^3/ uL (4.0-10.0) Corrected WBC RBC 4.87 10^6/uL 10^6 /uL (4.1-5.3) Hgb 12.8 g/dL g/dL (11.5-15.3) Hct 42.0 % % (37.0-47.0) MCV 86.2 fl fl (81-99) MCH 26.3 pg L pg (28.0-34.0) MCHC 30.5 g/dL g/dL (30.0-36.0) RDW 15.8 % H % (12.1-15.1) Plt Count 274 10^3/cmm 10^3 /cmm (130-400) MPV 9.6 fL fL (7.4-10.4) Gran % Neut % (Auto) 80.3 % % Lymph % (Auto) 6.8 % % [place] % (Auto) 11.2 % % Eos % (Auto) 1.0 % % Baso % (Auto) 0.5 % % Neut # (Auto) 6.72 10^3/uL 10^3 /uL (1.8-7.7) Lymph # (Auto) 0.6 10^3/uL L 10^ 3/uL (0.8-4.8) [place] # (Auto) 0.9 10^3/uL 10^3/ uL (0.2-0.9) Eos # (Auto) 0.1 10^3/uL 10^3/ uL (0.0-0.8) Baso # (Auto) 0.0 10^3/uL 10^3/ uL (0.0-0.1) Absolute Gran (aut o) Nucleated RBC % (a uto) 0 % % Nucleated RBCs # 0.0 /100WBC /100W BC Specimen Type Sample Site ABG pH ABG pCO2 ABG pO2 ABG HCO3 ABG O2 Saturation ABG Base Excess Chin Test A-a O2 Gradient Hematocrit Hgb O2 Saturation Carboxyhemoglobin Methemoglobin Total Hemoglobin Sodium 136 mmol/L mmol/L (136-145) Potassium 4.1 mmol/L mmol/L (3.5-5.1) Glucose 96 mg/dL mg/dL (65-115) Ionized Calcium O2 Delivery Device O2 Liters/Min Well Servicing Rig Operator ID Chloride 98 mmol/L mmol/L (98-107) Carbon Dioxide 25 mmol/L mmol/L (22-29) Anion Gap 17.1 (5-19) BUN 7 mg/dL L mg/dL (8-23) Creatinine 0.6 mg/dL mg/dL (0.5-0.9) GFR Calculation 101.3 mL/min mL/m in (90-130) Calculated Osmolal ity 280 mOsm/kg L mOs m/kg (285-295) Calcium 8.5 mg/dL mg/dL (8.5-10.5) Iron TIBC % Saturation Unsat Iron Binding Total Bilirubin 0.7 mg/dL mg/dL (0.15-1.2) AST 14 U/L U/L (0-32) ALT 6 U/L U/L (0-33) Alkaline Phosphata se 91 IU/L IU/L (35-105) Creatine Kinase 26 U/L U/L (26-192) Troponin T Baselin e Cancelled NT-Pro-B Natriuret Pep Total Protein 7.0 g/dL g/dL (6.6-8.7) Albumin 3.8 g/dL g/dL (3.5-5.2) Globulin 3.2 g/dL g/dL (1.3-4.6) Procalcitonin TSH Free T4 Free T3 07/20/21 07/20/21 07/20/21 16:12 16:12 16:12 WBC Corrected WBC RBC Hgb Hct MCV MCH MCHC RDW Plt Count MPV Gran % Neut % (Auto) Lymph % (Auto) [place] % (Auto) Eos % (Auto) Baso % (Auto) Neut # (Auto) Lymph # (Auto) [place] # (Auto) Eos # (Auto) Baso # (Auto) Absolute Gran (aut o) Nucleated RBC % (a uto) Nucleated RBCs # Specimen Type Sample Site ABG pH ABG pCO2 ABG pO2 ABG HCO3 ABG O2 Saturation ABG Base Excess Chin Test A-a O2 Gradient Hematocrit Hgb O2 Saturation Carboxyhemoglobin Methemoglobin Total Hemoglobin Sodium Potassium Glucose Ionized Calcium O2 Delivery Device O2 Liters/Min Well Servicing Rig Operator ID Chloride Carbon Dioxide Anion Gap BUN Creatinine GFR Calculation Calculated Osmolal ity Calcium Iron 27 ug/dL L ug/dL (37-145) TIBC 439 mcg/dl mcg/dl % Saturation 6.1 % L % (20-50) Unsat Iron Binding 412 ug/dL H ug/dL (112-347) Total Bilirubin AST ALT Alkaline Phosphata se Creatine Kinase Troponin T Baselin e 26 ng/L H ng/L (0-10) NT-Pro-B Natriuret Pep 3648 pg/mL H pg/m L (0-125) Total Protein Albumin Globulin Procalcitonin TSH 4.29 uIU/mL H uIU /mL (0.27-4.20) Free T4 Free T3 07/20/21 07/20/21 16:12 16:12 WBC Corrected WBC RBC Hgb Hct MCV MCH MCHC RDW Plt Count MPV Gran % Neut % (Auto) Lymph % (Auto) [place] % (Auto) Eos % (Auto) Baso % (Auto) Neut # (Auto) Lymph # (Auto) [place] # (Auto) Eos # (Auto) Baso # (Auto) Absolute Gran (aut o) Nucleated RBC % (a uto) Nucleated RBCs # Specimen Type Sample Site ABG pH ABG pCO2 ABG pO2 ABG HCO3 ABG O2 Saturation ABG Base Excess Chin Test A-a O2 Gradient Hematocrit Hgb O2 Saturation Carboxyhemoglobin Methemoglobin Total Hemoglobin Sodium Potassium Glucose Ionized Calcium O2 Delivery Device O2 Liters/Min Well Servicing Rig Operator ID Chloride Carbon Dioxide Anion Gap BUN Creatinine GFR Calculation Calculated Osmolal ity Calcium Iron TIBC % Saturation Unsat Iron Binding Total Bilirubin AST ALT Alkaline Phosphata se Creatine Kinase Troponin T Baselin e NT-Pro-B Natriuret Pep Total Protein Albumin Globulin Procalcitonin 0.04 ng/mL ng/mL (0-0.5) TSH Free T4 1.72 ng/dL ng/dL (0.82-1.77) Free T3 2.2 PG/ML PG/ML (2.0-4.4) Critical Care Time Critical Care Time: Critical Care Time: Yes Total Critical Care Time: 40 Attestation: The high probability of a clinically significant, sudden or life threatening deterioration of the patient's [cardiovascular, respiratory] system(s) required my full and direct attention, intervention and personal management. The critical care time is as shown. This time is in addition to time spent performing any reported procedures but includes the following: [x] Data and vital sign review and interpretation [x] Patient assessment, examination and intervention [x] Documentation [x] Medication orders and management Discharge Plan Discharge Patient Disposition: Admitted As Inpatient Admit Provider: Elieser Tellez Clinical Impression: CHF (congestive heart failure) Atrial fibrillation Qualifiers: Atrial fibrillation type: longstanding persistent Qualified Code(s): I48.11 - Longstanding persistent atrial fibrillation Condition: Stable Coding Level of Care Code ED Assistant Winemaker for Jimmie Arias
[2021-07-20] MEDS: ondansetron 2 mg/ML SDV 2 mL 4 MG IVP (15:57)
--- NOTE | 2021-07-20 16:12 | PC.PHAR ---
pt is from [facility] [phone] from [facility] states the pt had all her am meds and states she didnt have any prn meds-states the pt takes no insulin
[2021-07-20 16:21] LABS: Basophils % 0.5 %; Eosinophils # 0.1 10^3/uL (0.0-0.8); Hemoglobin 12.8 g/dL (11.5-15.3); Lymphocytes # 0.6 10^3/uL (0.8-4.8); Lymphocytes % 6.8 %; Mean Corpuscular HGB Conc 30.5 g/dL (30.0-36.0); Mean Corpuscular Hemoglobin 26.3 pg (28.0-34.0); Mean Corpuscular Volume 86.2 fl (81-99); Mean Platelet Volume 9.6 fL (7.4-10.4); Monocytes # 0.9 10^3/uL (0.2-0.9); Monocytes % 11.2 %; Neutrophils # 6.72 10^3/uL (1.8-7.7); Neutrophils % 80.3 %; Nucleated Red Blood Cells % 0 %; Platelet Count 274 10^3/cmm (130-400); Red Blood Count 4.87 10^6/uL (4.1-5.3); Red Cell Distribution Width 15.8 % (12.1-15.1); White Blood Count 8.4 10^3/uL (4.0-10.0)
[2021-07-20 16:44] LABS: Alanine Aminotransferase 6 U/L (0-33); Albumin Level 3.8 g/dL (3.5-5.2); Alkaline Phosphatase 91 IU/L (35-105); Anion Gap 17.1 (5-19); Aspartate Amino Transferase 14 U/L (0-32); Blood Urea Nitrogen 7 mg/dL (8-23); Calcium 8.5 mg/dL (8.5-10.5); Carbon Dioxide 25 mmol/L (22-29); Chloride 98 mmol/L (98-107); Creatine Phosphokinase 26 U/L (26-192); Creatinine Clr Calc Pharmacy 111.6296; Globulin 3.2 g/dL (1.3-4.6); Glomerular Filtration Rate 101.3 mL/min (90-130); Glucose 96 mg/dL (65-115); Osmolality Calculated 280 mOsm/kg (285-295); Potassium 4.1 mmol/L (3.5-5.1); Sodium 136 mmol/L (136-145); Total Bilirubin 0.7 mg/dL (0.15-1.2); Troponin(5th) Baseline 26 ng/L (0-10)
[2021-07-20] MEDS: FUROsemide 10 mg/mL SDV 10mL 60 MG IVP (17:14)
--- NOTE | 2021-07-20 17:37 | ECG_ITS ---
[facility] Test Date: 2021-07-20 Pat Name: Ivette Wheeler Department: Room: 108 Gender: Female Manager Quality Systems: : 1960 Requested By: Jean Claude Bonds Order Number: [id number] [place] MD: Medardo Huddleston M.D. Measurements Intervals [place] Rate: 105 P: [place]: QRS: 28 QRSD: 88 T: 23 QT: 332 QTc: 440 Interpretive Statements ATRIAL FIBRILLATION WITH RAPID VENTRICULAR RESPONSE LOW QRS VOLTAGE IN PRECORDIAL LEADS [QRS DEFLECTION < 1.0 mV IN CHEST LEADS] ABNORMAL RHYTHM ECG Compared to ECG 07/20/2021 15:40:31 Low QRS voltage now present ST (T wave) deviation no longer present Electronically Signed On 07-21-2021 4:51:23 PUZZLE ASSEMBLER by Medardo Huddleston M.D. [id number]
[2021-07-20 17:53] LABS: INR 1.15 (0.8-1.2)
[2021-07-20 18:22] LABS: D Dimer 3.61 ug/mIFEU (0-0.59)
[2021-07-20 18:37] LABS: Iron 27 ug/dL (37-145); NT Pro B Type Natriuretic Pept 3648 pg/mL (0-125); Percent Saturation 6.1 % (20-50); Total Iron Binding Capacity 439 mcg/dl; Unsaturated Iron Binding 412 ug/dL (112-347)
[2021-07-20 18:38] LABS: Thyroid Stimulating Hormone 4.29 uIU/mL (0.27-4.20)
--- NOTE | 2021-07-20 19:48 | CTR_ITS ---
PROCEDURE INFORMATION: Exam: CTA Chest With Contrast Exam date and time: 07/20/2021 7:48 PM Age: 61 years old Clinical indication: Abnormal findings; Abnormal diagnostic tests; Elevated d-dimer; Shortness of breath; Additional info: Elevated dimer TECHNIQUE: Imaging protocol: Computed tomographic angiography of the chest with contrast. 3D rendering (Not supervised by radiologist): MIP and/or 3D reconstructed images were created by the technologist. Radiation optimization: All CT scans at this facility use at least one of these dose optimization techniques: automated exposure control; mA and/or kV adjustment per patient size (includes targeted exams where dose is matched to clinical indication); or iterative reconstruction. Contrast material: OMNI 350; Contrast volume: 70 ml; Contrast route: INTRAVENOUS (IV); COMPARISON: CT angio chest PE protcl [id number] 01/22/2021 4:12 PM RADIATION DOSE METRICS: Total DLP (mGy-cm): 507.51 FINDINGS: Pulmonary arteries: There is no pulmonary embolus. Aorta: Unremarkable. No aortic aneurysm. No aortic dissection. Lungs: Diffuse mild ground-glass opacity and more dense right bibasilar consolidation is present, consistent with edema, or pneumonia. There is also dependent atelectasis. Pleural spaces: There is a small right pleural effusion and trace left pleural effusion. Heart: The heart is enlarged. There is contrast in the inferior vena cava and reflux into the hepatic veins compatible with right heart failure. Lymph nodes: Unremarkable. No enlarged lymph nodes. Diaphragm: A small hiatal hernia is present. Liver: The liver has a grossly nodular contour and there is relative hypertrophy of the caudate lobe, consistent with end-stage cirrhosis. Intraperitoneal space: There is a moderate to large volume of ascites new since the prior exam. Bones/joints: Sternotomy wires and mediastinal surgical clips are present, consistent with previous coronary arterial bypass grafting. Soft tissues: There is diffuse induration of the subcutaneous fat and mesenteric fat compatible with anasarca type changes. CT/CT angio chest PE protcl [id number] IMPRESSION: 1. There is no pulmonary embolus. 2. Diffuse mild ground-glass opacity and more dense right bibasilar consolidation is present, consistent with edema, or pneumonia. There is a right pleural effusion. 3. There is a moderate to large volume of ascites new since the prior exam. Cirrhotic liver morphology is noted. 4. There is contrast in the inferior vena cava and reflux into the hepatic veins compatible with right heart failure.
[2021-07-20 20:11] LABS: Glucose Point of Care 96 mg/dL (70-110)
[2021-07-20] MEDS: famotidine 20 mg/2 mL INJ IVP (20:13)
[2021-07-20] MEDS: ferrous gluconate 324 mg Tablet PO (20:13)
[2021-07-20] MEDS: dilTIAZem 30 mg Tablet PO (20:13)
[2021-07-20] MEDS: ARIPiprazole 10 mg Tablet 5 MG PO (20:13)
[2021-07-20] MEDS: LORazepam 0.5 mg Tablet PO (20:13)
[2021-07-20] MEDS: sotalol 80 mg Tablet PO (20:13)
[2021-07-20] MEDS: trazodone 100 mg Tablet PO (20:13)
[2021-07-20 20:23] LABS: Add Urine Culture? No; Add Urine Microscopic? YES; Bacteria Urine TRACE /hpf; Bilirubin Urine Neg (Negative); Blood Urine 2+ (Negative); Glucose Urine UA Norm (Normal); Ketones Urine Negative (Negative); Leukocyte Esterase Urine Negative (Negative); Nitrate Urine Negative (Negative); Protein Urine Neg (Negative); Squamous Epithelial Cell Urine 0-4 /hpf (0-5); Urine Appearance Clear (CLEAR); Urine Color Yellow (Yellow); Urobilinogen Urine Norm (Negative); WBC Urine 0-4 /hpf (0-5); pH Urine 5 (5-7)
[2021-07-20 20:27] LABS: Amphetamines Screen Urine Negative (Negative); Barbiturates Screen Urine Negative (Negative); Benzodiazepines Screen Urine Positive (Negative); Cocaine Screen Urine Negative (Negative); Opiate Screen Urine Negative (Negative); PCP Screen Urine Negative (Negative); THC Screen Urine Negative (Negative)
[2021-07-20 20:40] LABS: Free T4 Free Thyroxine 1.72 ng/dL (0.82-1.77); T3 Free 2.2 PG/ML (2.0-4.4)
[2021-07-20 20:44] LABS: Troponin 5 2HR 24.85 ng/L (0-10)
[2021-07-20 20:45] LABS: Troponin 5 2HR Delta -1.15 ABS# (0-10)
--- NOTE | 2021-07-20 21:37 | ECG_ITS ---
[facility] Test Date: 2021-07-20 Pat Name: Ivette Wheeler Department: Room: 108 Gender: Female Supervisor Tubing: : 1960 Requested By: Jean Claude Bonds Order Number: [id number] [place] MD: Medardo Huddleston M.D. Measurements Intervals [place] Rate: 98 P: [place]: QRS: 46 QRSD: 82 T: 28 QT: 357 QTc: 457 Interpretive Statements ATRIAL FIBRILLATION LOW QRS VOLTAGE IN PRECORDIAL LEADS [QRS DEFLECTION < 1.0 mV IN CHEST LEADS] ABNORMAL RHYTHM ECG Compared to ECG 07/20/2021 18:26:30 No significant changes Electronically Signed On 07-21-2021 4:50:46 AUTO TRANSMISSION TECHNICIAN by Medardo Huddleston M.D. [id number]
--- NOTE | 2021-07-20 22:48 | P.HP_ITS ---
Providers/Chief Complaint Admitting Physician: Elieser Tellez MD Chief Complaint: SOB/ AFIB History of Present Illness Ivette Wheeler is a 61 year old female with PMH history of bipolar disorder, psychosis , coronary artery disease status post stent, CABG, HFrEF, A. fib htn,dvt, e left frontal and frontoparietal subdural hematoma secondary to fall s/p yosvany hole surgery p/w complaints of shortness of breath and 20 pound weight gain with increasing anasarca. Upon arrival in the ER noted to have A fib with RVR for which she has been started on a cardizem infusion. denies any chest pain, dyspnea, palpitations. Review of Systems General: Reports: 10 or more systems reviewed and unremarkable except in HPI and below Const: Denies: fever(s), chills or body aches Eyes: Denies: change in vision, blurry vision or photophobia ENMT: Reports: hoarseness; Denies: throat pain, enlarged tonsils, odynophagia or nasal congestion Card: Denies: chest pain, palpitations, irregular heart rhythm, edema, swelling of feet/ankles, lightheadedness, pre-syncope, dyspnea on exertion or orthopnea Resp: Denies: dyspnea, productive cough, non-productive cough, wheezing, stridor, pain on inspiration, change in phlegm color, hemoptysis or chest congestion GI: Denies: abdominal pain, nausea, vomiting, hematemesis, coffee ground emesis, dysphagia, heartburn, diarrhea, constipation, GI cramping, change in stool character, hematochezia or melena : Denies: flank pain, difficulty voiding, dysuria, urinary frequency, urinary urgency, urinary hesitancy or hematuria Musc: Denies: neck pain, back pain, extremity pain, joint swelling, joint warmth or deformity Neuro: Denies: headache(s), numbness in extremities, weakness in extremities, sensory changes, difficulty walking, frequent falls, dizziness, vertigo, behavioral changes, Slurred speech present or seizure-like activity Psych: Denies: anxiety, depression, suicidal ideation or homicidal ideation Endo: Denies: polyuria, polydipsia, tired all the time, cold intolerance or hot flashes Flavio/Lymph: Denies: easy bruising or easy bleeding Medications/Allergies Home Medications Medication Instructions Recorded Confirmed Last Taken Type furosemide 40 mg PO DAILY PRN 14 Days #14 tab 04/30/21 07/20/21 Unknown Rx aripiprazole 5 mg PO BEDTIME@07/20/21 07/20/21 07/19/21 History diclofenac sodium See Rx Instructions .ROUTE .COMPLEX 07/20/21 07/20/21 Unknown History diltiazem HCl 180 mg PO DAILY@07/20/21 07/20/21 07/20/21 History fluticasone propion-salmeterol 1 inh INHALATION BID@,07/20/21 07/20/21 07/20/21 History [Wixela Inhub] hydrocortisone 1 applic TOPICAL BID PRN 07/20/21 07/20/21 Unknown History levothyroxine [Euthyrox] 150 mcg PO DAILY@07/20/21 07/20/21 07/20/21 History lorazepam 0.5 mg PO BID@,07/20/21 07/20/21 07/20/21 History nystatin 1 applic TOPICAL BID@,07/20/21 07/20/21 Unknown History potassium chloride 8 meq PO DAILY PRN 07/20/21 07/20/21 Unknown History sertraline 50 mg PO DAILY@07/20/21 07/20/21 07/20/21 History sotalol 80 mg PO BID@,07/20/21 07/20/21 07/20/21 History trazodone 100 mg PO BEDTIME@20 07/20/21 07/20/21 07/19/21 History Allergies Allergy/AdvReac Type Severity Reaction Status Date / Time atorvastatin [From Lipitor] Allergy Unknown Verified 07/20/21 16:09 lisinopril Allergy Unknown Verified 07/20/21 16:09 PFSH Acute PFSH: Medical History ASHD (arteriosclerotic heart disease) Atherosclerosis of coronary artery of [place] heart without angina pectoris Atrial fibrillation Bipolar disorder in partial remission The patient denies history of euphoria, decreased need for sleep, increase in energy, racing thoughts, pressured speech, spending sprees etc. Therefore this diagnosis is removed. Cellulitis CHF (congestive heart failure) Chronic anticoagulation Eliquis COVID-19 January Dyslipidemia Essential hypertension The patient is on both Paxil 10 mg daily and Zoloft 50 mg daily. We will discontinue the Paxil and make sure she has no withdrawal symptoms. Hx of deep venous thrombosis Mitral valve regurgitation Pulmonary hypertension Tricuspid valve regurgitation Type 2 diabetes mellitus Surgical History History of coronary artery bypass graft 2005 History of coronary artery stent placement History of total vaginal hysterectomy History of tubal ligation Status post colonoscopy Family History Other CAD (coronary artery disease) Diabetes Hypertension Social History Smoking and tobacco status: never smoked Alcohol intake: current Alcohol intake frequency: holidays/special occasions only Household members: significant other Marital status: Single Vitals/I&O/Wt Last Vital Signs Temp 98.1 F 07/20/21 15:24 Pulse 90 07/20/21 21:59 Resp 24 H 07/20/21 20:18 BP 119/79 07/20/21 20:18 Pulse Ox 96 07/20/21 20:18 07/20/21 07/20/21 07/20/21 06:59 14:59 22:59 Intake Total 20.083 / 20.083 Balance 20.083 / 20.083 Weight last 48 hrs Weight 102.739 kg Weight 99.79 kg Physical Exam Narrative: EXAM NARRATIVE: General: No acute distress, AO x3 HEENT: PERRLA, pupils bilaterally equal and reactive, pallors not present Chest: diminished air entry RLL, scattered crackles CVS: S1-S2 regular, no murmurs, no tachycardia, no gallops, no rubs Abdomen: Soft, nontender, no organomegaly, bowel sounds present Neuro: No focal deficits, no facial deformity, AO x3, power 5/5 in all limbs Extremities: pitting edema B/L lower extremities Data : 07/20/21 16:12 07/20/21 16:12 A&P Assessment and plan (1) Atrial fibrillation: A fib with RVR Currently on cardizem infusion for Hr control Continue Sotalol BID Additionally overlap with po cardizem 30mg QID Status: Acute Qualifiers: Atrial fibrillation type: longstanding persistent Qualified Code(s): I48.11 - Longstanding persistent atrial fibrillation (2) CHF (congestive heart failure): Likely precipitated by A fib with RVR received 60mg iv lasix in the ER Continue 40mg iv q12h montior urine output and kidney function closely Status: Acute Additional A&P Information Continue home meds aripiprazole, levothyroxine, sertraline Attestations Medical Necessity Statement*: Anticipate >2midnight admission for control of A fib with RVR, iv diuretics for heart failure Coding Level of Care Code Acute Snowboarding Instructor for Chg Fwd Diagnoses Atrial fibrillation I48.11 Atrial fibrillation type: longstanding persistent CHF (congestive heart failure) I50.9
[2021-07-20 23:05] LABS: Troponin 5 6HR 22.97 ng/L (0-10)
[2021-07-20 23:13] LABS: Troponin 5 6HR Delta -3.03 ng/L (0-12)
[2021-07-20 23:33] LABS: Procalcitonin 0.04 ng/mL (0-0.5)
--- NOTE | 2021-07-20 23:53 | PC.NURSE ---
Dr. Hand notified that patient does not have anything ordered for VTE.
[2021-07-21] VITALS (16 sets, daily range): BP systolic 91–114; BP diastolic 52–76; PULSE 98–113; RESP 18–27; TEMP 36.4–37.1; O2SAT 90–96
[2021-07-21 01:39] LABS: Influenza A by IFA Negative (Negative); Influenza B by IFA Negative (Negative)
--- NOTE | 2021-07-21 02:57 | PC.NURSE ---
Patient has episodes of incontinence. Unable to accurately measure urine output at times.
[2021-07-21 04:59] LABS: Basophils % 0.3 %; Hematocrit 36.1 % (37.0-47.0); Lymphocytes # 0.5 10^3/uL (0.8-4.8); Lymphocytes % 8.8 %; Mean Corpuscular HGB Conc 30.5 g/dL (30.0-36.0); Mean Corpuscular Hemoglobin 26.9 pg (28.0-34.0); Mean Corpuscular Volume 88.3 fl (81-99); Mean Platelet Volume 9.7 fL (7.4-10.4); Monocytes # 0.9 10^3/uL (0.2-0.9); Monocytes % 15.4 %; Neutrophils # 4.53 10^3/uL (1.8-7.7); Neutrophils % 75.2 %; Nucleated Red Blood Cells % 0 %; Platelet Count 222 10^3/cmm (130-400); Red Blood Count 4.09 10^6/uL (4.1-5.3); Red Cell Distribution Width 15.8 % (12.1-15.1)
[2021-07-21 05:16] LABS: Alanine Aminotransferase < 5 U/L (0-33); Albumin Level 3.3 g/dL (3.5-5.2); Alkaline Phosphatase 73 IU/L (35-105); Aspartate Amino Transferase 18 U/L (0-32); Blood Urea Nitrogen 7 mg/dL (8-23); Calcium 7.9 mg/dL (8.5-10.5); Carbon Dioxide 28 mmol/L (22-29); Chloride 100 mmol/L (98-107); Chol HDL Ratio 4.65 mg/dL (0.0-4.40); Cholesterol 121 mg/dL (0-200); Globulin 2.9 g/dL (1.3-4.6); Glomerular Filtration Rate 101.3 mL/min (90-130); Glucose 95 mg/dL (65-115); HDL Cholesterol 26 mg/dL (60-100); LDL Cholesterol Calculated 78 mg/dL (50-129); Osmolality Calculated 284 mOsm/kg (285-295); Sodium 138 mmol/L (136-145); Total Bilirubin 0.6 mg/dL (0.15-1.2); Total Protein 6.2 g/dL (6.6-8.7); Triglycerides 83 mg/dL (0-150); VLDL Cholestrol Calculation 17 mg/dL (0-30)
[2021-07-21 05:17] LABS: Anion Gap 13.9 (5-19); Potassium 3.9 mmol/L (3.5-5.1)
[2021-07-21 05:35] LABS: Estmated Average Glucose 128; Hemoglobin A1C 6.1 % (4.0-6.0)
[2021-07-21 06:28] LABS: Glucose Point of Care 91 mg/dL (70-110)
[2021-07-21] MEDS: FUROsemide 10 mg/mL SDV 4mL 40 MG IVP ×2 (06:29→13:15)
[2021-07-21] MEDS: levothyroxine 150 mcg Tablet PO (06:29)
[2021-07-21] MEDS: acetaminophen 325 mg Tablet 650 MG PO (06:31)
[2021-07-21] MEDS: famotidine 20 mg/2 mL INJ IVP ×2 (06:31→18:53)
[2021-07-21] MEDS: LORazepam 0.5 mg Tablet PO ×2 (08:12→18:53)
[2021-07-21] MEDS: sotalol 80 mg Tablet PO ×2 (08:12→18:52)
[2021-07-21] MEDS: sertraline 50 mg Tablet PO (08:12)
[2021-07-21] MEDS: ferrous gluconate 324 mg Tablet PO ×2 (08:12→17:00)
[2021-07-21] MEDS: dilTIAZem 30 mg Tablet PO ×4 (09:13→18:53)
[2021-07-21] MEDS: pneumococcal (23 valent) SDV 0.5 mL IM (09:17)
[2021-07-21] MEDS: heparin 5,000 unit/mL INJ 1 mL 5000 UNIT SUBCUT ×2 (11:47→18:53)
--- NOTE | 2021-07-21 15:46 | P.PN_ITS ---
Subjective Subjective: Interval history: No evidence overnight. Cardizem drip was stopped. Heart rate have remained in high 90s to low 100. Today morning on examination sitting on bedside. Saturating 93% on 4 L. Denies any nausea, vomiting, headache Vitals/I&O/Wt Last Vital Signs Temp 98.6 F 07/21/21 12:03 Pulse 99 07/21/21 14:00 Resp 18 07/21/21 12:03 BP 114/52 07/21/21 12:04 Pulse Ox 92 07/21/21 12:04 07/21/21 07/21/21 07/21/21 06:59 14:59 22:59 Intake Total 200 / 220.083 472 / 472 Output Total 600 / 600 Balance 200 / 220.083 -128 / -128 Weight last 48 hrs Weight 102.829 kg Weight 102.739 kg Weight 99.79 kg Physical Exam Narrative: EXAM NARRATIVE: General: No acute distress, AO x3 HEENT: PERRLA, pupils bilaterally equal and reactive Chest: Normal vesicular breath sounds, no added sounds, equal good air entry bilaterally CVS: S1-S2 irregularly irregular, soft pansystolic murmur at fourth intercostal space, 2/6, pansystolic murmur at apex radiating to anterior axillary line, tachycardia, no gallops, no rubs Abdomen: Soft, nontender, no organomegaly, bowel sounds present Neuro: No focal deficits, no facial deformity, AO x3, power 5/5 in all limbs Extremities: Bilateral lower limb swelling 2+ pitting edema present to knees Urinary Catheter Management^: Cox: Cath Placed During This Visit: yes Urinary Catheter Date of Insertion: 07/21/21 Urinary Catheter Time of Insertion: 12:00 Data : 07/21/21 04:32 07/21/21 04:32 A&P Assessment and plan (1) Atrial fibrillation: Status: Acute Qualifiers: Atrial fibrillation type: longstanding persistent Qualified Code(s): I48.11 - Longstanding persistent atrial fibrillation (2) CHF (congestive heart failure): Status: Acute (3) Pulmonary hypertension: Status: Acute (4) Bilateral lower extremity edema: Status: Acute (5) Essential hypertension: Status: Acute (6) Type 2 diabetes mellitus: Status: Acute (7) S/P evacuation of subdural hematoma: Status: Acute Additional A&P Information Atrial fibrillation rapid ventricular response: Rate better controlled. Continue with home dose of sotalol 80 mg twice daily, Cardizem 30 mg 4 times daily. Not on anticoagulation because of recent history of subdural hematoma post evacuation. TSH levels appreciated. Congestive heart failure/moderate to severe pulmonary hypertension: Last echocardiogram done in February 07 shows an EF of 50%, biatrial enlargement, mild prolapse of anterior mitral leaflet, mild to moderate eccentric MR, moderate to severe TR, PASP of 53. Continue with IV Lasix 60 mg twice daily. Cox catheterization. Strict input output charting. Daily weights. Fluid restriction up to 1500 cc. Hypoxia: Most likely secondary to congestive heart failure. Most likely patient has undiagnosed baseline sleep apnea. Infective pathology less likely. Patient did have recent Covid. Pro-Stanton negative. We will continue to monitor. If patient has any fever will start on antibiotics. Treatment for congestive heart failure as above. Oxygen supplementation keeping saturation more than 88%. Advair, Spiriva. Patient should have sleep study as an outpatient. Bilateral lower limb edema: Less likely cellulitis. Most likely secondary to severe pulmonary hypertension congestive heart failure. Diuresis as above. Type 2 diabetes mellitus: A1c 6.1. Carb consistent diet. Insulin sliding scale at low-dose protocol. Hypertension: Goal blood pressure less than 140/90 mmHg. Blood pressure is at goal. Full code. Cardiac carb consistent diet. Heparin for DVT prophylaxis Famotidine for PUD prophylaxis. Attestations Medical Necessity Statement*: Further hospitalization for management of congestive heart failure, moderate to severe pulmonary hypertension, hypoxia, atrial fibrillation with rapid ventricular response. Time Spent in Patient Care: Greater than 35 minutes (>than 50% of time spent in counselling and/or direct pt care on unit) . Coding Level of Care Code Acute International Logistics Manager for Chg Fwd Diagnoses Atrial fibrillation I48.11 Atrial fibrillation type: longstanding persistent CHF (congestive heart failure) I50.9 Pulmonary hypertension I27.20 Bilateral lower extremity edema R60.0 Essential hypertension I10 Type 2 diabetes mellitus E11.9 S/P evacuation of subdural hematoma Z98.890; Z86.79
[2021-07-21 16:43] LABS: Glucose Point of Care 121 mg/dL (70-110)
[2021-07-21] MEDS: FUROsemide 10 mg/mL SDV 4mL 60 MG IVP (18:32)
[2021-07-21] MEDS: ARIPiprazole 10 mg Tablet 5 MG PO (18:52)
[2021-07-21] MEDS: trazodone 100 mg Tablet PO (18:53)
[2021-07-21 20:11] LABS: Glucose Point of Care 112 mg/dL (70-110)
[2021-07-22] VITALS (19 sets, daily range): BP systolic 86–124; BP diastolic 52–87; PULSE 83–111; RESP 16–25; TEMP 36.6–37.2; O2SAT 90–96
--- NOTE | 2021-07-22 01:30 | PC.NURSE ---
Patient had arrhythmia on monitor. Dr. Hand notified. Arrhythmia strip print and posted in patient chart. Patient asymptomatic.
[2021-07-22] MEDS: heparin 5,000 unit/mL INJ 1 mL 5000 UNIT SUBCUT ×3 (02:24→19:13)
--- NOTE | 2021-07-22 04:39 | PC.NURSE ---
Unable to keep patient's oxygen saturation up without Bipap. When patient is taken off Bipap, patient is placed on 6 L NC and oxygen saturation drops to 80s. RT notified. Patient has frequently asked for breaks from Bipap throughout night, but has not been able to be taken off Bipap for long periods due to oxygen saturation dropping.
[2021-07-22 04:52] LABS: Basophils % 0.7 %; Eosinophils % 0.3 %; Hematocrit 34.7 % (37.0-47.0); Hemoglobin 10.6 g/dL (11.5-15.3); Lymphocytes # 0.8 10^3/uL (0.8-4.8); Lymphocytes % 13.9 %; Mean Corpuscular HGB Conc 30.5 g/dL (30.0-36.0); Mean Corpuscular Hemoglobin 26.8 pg (28.0-34.0); Mean Corpuscular Volume 87.8 fl (81-99); Mean Platelet Volume 10.1 fL (7.4-10.4); Monocytes % 18.1 %; Neutrophils # 3.82 10^3/uL (1.8-7.7); Neutrophils % 66.7 %; Nucleated Red Blood Cells % 0 %; Platelet Count 191 10^3/cmm (130-400); Red Blood Count 3.95 10^6/uL (4.1-5.3); Red Cell Distribution Width 15.6 % (12.1-15.1); White Blood Count 5.7 10^3/uL (4.0-10.0)
[2021-07-22 05:13] LABS: Alanine Aminotransferase 6 U/L (0-33); Albumin Level 3.2 g/dL (3.5-5.2); Alkaline Phosphatase 65 IU/L (35-105); Blood Urea Nitrogen 10 mg/dL (8-23); Calcium 7.7 mg/dL (8.5-10.5); Carbon Dioxide 29 mmol/L (22-29); Chloride 98 mmol/L (98-107); Globulin 2.7 g/dL (1.3-4.6); Glomerular Filtration Rate 101.3 mL/min (90-130); Glucose 98 mg/dL (65-115); Magnesium 1.6 mg/dL (1.7-2.3); Osmolality Calculated 287 mOsm/kg (285-295); Sodium 139 mmol/L (136-145); Total Bilirubin 0.4 mg/dL (0.15-1.2); Total Protein 5.9 g/dL (6.6-8.7)
[2021-07-22 05:20] LABS: Anion Gap 15.5 (5-19); Aspartate Amino Transferase 16 U/L (0-32); Potassium 3.5 mmol/L (3.5-5.1)
[2021-07-22] MEDS: levothyroxine 150 mcg Tablet PO (05:39)
--- NOTE | 2021-07-22 05:39 | PC.NURSE ---
RT placed patient on 10 L high flow NC.
[2021-07-22 06:31] LABS: Glucose Point of Care 97 mg/dL (70-110)
[2021-07-22] MEDS: dilTIAZem 30 mg Tablet PO ×4 (07:55→19:13)
[2021-07-22] MEDS: sertraline 50 mg Tablet PO (07:55)
[2021-07-22] MEDS: LORazepam 0.5 mg Tablet PO (07:55)
[2021-07-22] MEDS: sotalol 80 mg Tablet PO ×2 (07:55→19:13)
[2021-07-22] MEDS: ferrous gluconate 324 mg Tablet PO ×2 (07:55→17:21)
[2021-07-22] MEDS: FUROsemide 10 mg/mL SDV 4mL 60 MG IVP ×2 (09:46→17:54)
[2021-07-22] MEDS: famotidine 20 mg/2 mL INJ IVP ×2 (09:46→19:13)
[2021-07-22 10:44] LABS: Glucose Point of Care 164 mg/dL (70-110)
[2021-07-22] MEDS: insulin lispro 100 unit/1 mL SUBCUT (11:45)
--- NOTE | 2021-07-22 14:18 | PM.PN ---
Subjective Subjective: Interval history: No acute event overnight. Today morning on examination patient seen on 10 L nasal cannula saturating 98%. Became mildly drowsy. During examination oxygen supplementation turned down to 5 L with patient maintaining over 93%. Patient is awake, alert but is drowsy. Denies any nausea, vomiting, headache. Documented urine output in last 24 hours more than 3.5 L. Has remained rate controlled. ABG requested and reviewed after which patient was placed on BiPAP for hypercapnia. Repeat ABG also reviewed 2 hours later. Hypercapnia resolving. Vitals/I&O/Wt Last Vital Signs Temp 99 F 07/22/21 11:24 Pulse 98 07/22/21 11:24 Resp 21 H 07/22/21 11:24 BP 110/71 07/22/21 11:24 Pulse Ox 96 07/22/21 11:24 07/21/21 07/22/21 07/22/21 22:59 06:59 14:59 Intake Total 472 / 944 300 / 1244 650 / 650 Output Total 1200 / 1800 1300 / 3100 1250 / 1250 Balance -728 / -856 -1000 / -1856 -600 / -600 Weight last 48 hrs Weight 102.194 kg Weight 102.829 kg Weight 102.739 kg Weight 99.79 kg Physical Exam Narrative: EXAM NARRATIVE: General: No acute distress, AO x3 HEENT: PERRLA, pupils bilaterally equal and reactive Chest: Normal vesicular breath sounds, no added sounds, equal good air entry bilaterally CVS: S1-S2 irregularly irregular, soft pansystolic murmur at fourth intercostal space, 2/6, pansystolic murmur at apex radiating to anterior axillary line, tachycardia, no gallops, no rubs Abdomen: Soft, nontender, no organomegaly, bowel sounds present Neuro: No focal deficits, no facial deformity, AO x3, power 5/5 in all limbs Extremities: Bilateral lower limb swelling 2+ pitting edema present to knees Urinary Catheter Management^: Cox: Cath Placed During This Visit: yes Reason for Continuing Indwelling Catheter: Other Urinary Catheter Date of Insertion: 07/21/21 Urinary Catheter Time of Insertion: 12:00 Data : 07/22/21 04:10 07/22/21 04:10 A&P Assessment and plan (1) Acute on chronic respiratory failure with hypoxia and hypercapnia: Status: Acute (2) CHF (congestive heart failure): Likely precipitated by A fib with RVR received 60mg iv lasix in the ER Continue 40mg iv q12h montior urine output and kidney function closely Status: Acute (3) Pulmonary hypertension: Status: Acute (4) Atrial fibrillation: A fib with RVR Currently on cardizem infusion for Hr control Continue Sotalol BID Additionally overlap with po cardizem 30mg QID Status: Acute Qualifiers: Atrial fibrillation type: longstanding persistent Qualified Code(s): I48.11 - Longstanding persistent atrial fibrillation (5) Bilateral lower extremity edema: Status: Acute (6) Essential hypertension: Status: Acute (7) Type 2 diabetes mellitus: Status: Acute (8) S/P evacuation of subdural hematoma: Status: Acute Additional A&P Information Acute on chronic hypercapnic and hypoxic respiratory failure: Most likely a combination of congestive heart failure with undiagnosed sleep apnea along with polypharmacy for multiple psych medications. ABG appreciated. Continue BiPAP ventilation. Overnight pulse oximetry for possible sleep apnea. Medication reviewed. Change lorazepam to 0.5 mg twice daily as needed. Hold off morning dose of sertraline for now. Continue nightly dose of trazodone and add up resolved. Continue with IV Lasix 60 mg twice daily. Strict input output charting while monitoring for renal functions daily. Daily weights. Fluid restriction up to 1500 cc. Switch from home inhaler to DuoNebs every 6 hour budesonide twice daily for now. Hold off on steroids for now. Infective pathology less likely. Patient did have recent Covid. Pro-Stanton negative. We will continue to monitor. If patient has any fever will start on antibiotics. Atrial fibrillation rapid ventricular response: Rate better controlled. Continue with home dose of sotalol 80 mg twice daily, Cardizem 30 mg 4 times daily. Not on anticoagulation because of recent history of subdural hematoma post evacuation. TSH levels appreciated. Bilateral lower limb edema: Less likely cellulitis. Most likely secondary to severe pulmonary hypertension congestive heart failure. Diuresis as above. Type 2 diabetes mellitus: A1c 6.1. Carb consistent diet. Insulin sliding scale at low-dose protocol. Hypertension: Goal blood pressure less than 140/90 mmHg. Blood pressure is at goal. Full code. Cardiac carb consistent diet. Heparin for DVT prophylaxis Famotidine for PUD prophylaxis. Attestations Medical Necessity Statement*: Requires further hospitalization for acute on chronic hypoxic and hypercapnic respiratory failure, congestive heart failure with moderate to severe pulmonary hypertension, atrial fibrillation with rapid ventricular response Time Spent in Patient Care: Greater than 35 minutes (>than 50% of time spent in counselling and/or direct pt care on unit). Coding Level of Care Code Acute Superintendent Quarry for Chg Fwd Diagnoses Acute on chronic respiratory failure with hypoxia and hypercapnia J96.21; J96.22 CHF (congestive heart failure) I50.9 Pulmonary hypertension I27.20 Atrial fibrillation I48.11 Atrial fibrillation type: longstanding persistent Bilateral lower extremity edema R60.0 Essential hypertension I10 Type 2 diabetes mellitus E11.9 S/P evacuation of subdural hematoma Z98.890; Z86.79
[2021-07-22] MEDS: ipratropium-albuterol 3 mL Neb INHALATION ×2 (14:49→20:25)
[2021-07-22 16:23] LABS: Glucose Point of Care 119 mg/dL (70-110)
[2021-07-22] MEDS: ARIPiprazole 10 mg Tablet 5 MG PO (19:13)
[2021-07-22] MEDS: trazodone 100 mg Tablet PO (19:13)
[2021-07-22 20:00] LABS: Glucose Point of Care 112 mg/dL (70-110)
[2021-07-22] MEDS: budesonide 0.5 mg/2 mL Neb INHALATION (20:25)
[2021-07-23] VITALS (19 sets, daily range): BP systolic 94–111; BP diastolic 63–73; PULSE 80–106; RESP 14–31; TEMP 36.6–36.8; O2SAT 86–100
[2021-07-23] MEDS: heparin 5,000 unit/mL INJ 1 mL 5000 UNIT SUBCUT ×3 (02:29→19:33)
[2021-07-23] MEDS: ipratropium-albuterol 3 mL Neb INHALATION ×4 (02:33→20:13)
[2021-07-23 02:44] LABS: Basophils % 0.7 %; Eosinophils # 0.1 10^3/uL (0.0-0.8); Eosinophils % 1.1 %; Hematocrit 35.6 % (37.0-47.0); Hemoglobin 10.7 g/dL (11.5-15.3); Lymphocytes # 0.6 10^3/uL (0.8-4.8); Lymphocytes % 11.9 %; Mean Corpuscular HGB Conc 30.1 g/dL (30.0-36.0); Mean Corpuscular Hemoglobin 26.6 pg (28.0-34.0); Mean Corpuscular Volume 88.6 fl (81-99); Mean Platelet Volume 10.3 fL (7.4-10.4); Monocytes # 0.8 10^3/uL (0.2-0.9); Monocytes % 14.9 %; Neutrophils % 70.8 %; Nucleated Red Blood Cells % 0 %; Platelet Count 167 10^3/cmm (130-400); Red Blood Count 4.02 10^6/uL (4.1-5.3); Red Cell Distribution Width 15.4 % (12.1-15.1); White Blood Count 5.4 10^3/uL (4.0-10.0)
--- NOTE | 2021-07-23 03:04 | PC.NURSE ---
Patient has pulled Bipap off several times. Bipap has been placed back on patient multiple times. Patient's oxgyen saturation drops quickly to 70s and 80s when Bipap is pulled off. Patient educated and states I don't know how I keep doing it. Patient states things like where is my nephew? When asking patient where she is, what year it is, ect., patient answers correctly.
[2021-07-23 03:06] LABS: Alanine Aminotransferase < 5 U/L (0-33); Albumin Level 3.1 g/dL (3.5-5.2); Alkaline Phosphatase 57 IU/L (35-105); Blood Urea Nitrogen 13 mg/dL (8-23); Calcium 7.5 mg/dL (8.5-10.5); Carbon Dioxide 31 mmol/L (22-29); Chloride 95 mmol/L (98-107); Globulin 2.7 g/dL (1.3-4.6); Glomerular Filtration Rate 101.3 mL/min (90-130); Glucose 84 mg/dL (65-115); Osmolality Calculated 281 mOsm/kg (285-295); Sodium 136 mmol/L (136-145); Total Bilirubin 0.4 mg/dL (0.15-1.2); Total Protein 5.8 g/dL (6.6-8.7)
[2021-07-23 03:20] LABS: Anion Gap 13.5 (5-19); Aspartate Amino Transferase 14 U/L (0-32); Potassium 3.5 mmol/L (3.5-5.1)
[2021-07-23] MEDS: levothyroxine 150 mcg Tablet PO (04:24)
--- NOTE | 2021-07-23 04:36 | PC.NURSE ---
Patient has been repositioned multiple times throughout shift on left side and back with 2 assist.
[2021-07-23 06:33] LABS: Glucose Point of Care 83 mg/dL (70-110)
[2021-07-23] MEDS: acetaminophen 325 mg Tablet 650 MG PO (07:38)
[2021-07-23] MEDS: ferrous gluconate 324 mg Tablet PO ×2 (07:39→17:12)
[2021-07-23] MEDS: famotidine 20 mg/2 mL INJ IVP ×2 (07:39→19:33)
[2021-07-23] MEDS: budesonide 0.5 mg/2 mL Neb INHALATION ×2 (07:50→20:14)
[2021-07-23] MEDS: sotalol 80 mg Tablet PO ×2 (08:51→19:33)
[2021-07-23] MEDS: dilTIAZem 30 mg Tablet PO ×4 (08:52→19:32)
[2021-07-23] MEDS: FUROsemide 10 mg/mL SDV 4mL 60 MG IVP ×2 (08:59→17:12)
[2021-07-23 10:59] LABS: Glucose Point of Care 100 mg/dL (70-110)
[2021-07-23] MEDS: LORazepam 0.5 mg Tablet PO ×2 (15:19→19:32)
[2021-07-23 16:42] LABS: Glucose Point of Care 179 mg/dL (70-110)
[2021-07-23] MEDS: bisacodyl 5 mg Tablet 10 MG PO (17:11)
--- NOTE | 2021-07-23 17:29 | PC.NURSE ---
Bipap applied Pt is sitting in the chair. SpO2 is at 84%. Bipap applied and spO2 is up to 100% on 50 fio2 bipap.
[2021-07-23] MEDS: insulin lispro 100 unit/1 mL SUBCUT (17:39)
--- NOTE | 2021-07-23 19:00 | PC.NURSE ---
Received report from GIANNA Sanchez. Patient sitting up on edge of bed with bipap in place. Patient cooperative at this time. Instructed patient on medications and timing. Patient verbalized understanding but will require reinforcement.
[2021-07-23] MEDS: ARIPiprazole 10 mg Tablet 5 MG PO (19:32)
[2021-07-23] MEDS: trazodone 100 mg Tablet PO (19:33)
--- NOTE | 2021-07-23 20:03 | PM.PN ---
Subjective Subjective: Interval history: States she is doing all right. Denies chest pain or pressure. Denies any complaints. Later noted anxious, restless. Vitals/I&O/Wt Last Vital Signs Temp 98 F 07/23/21 19:23 Pulse 99 07/23/21 19:23 Resp 29 H 07/23/21 19:23 BP 106/73 07/23/21 19:23 Pulse Ox 91 07/23/21 19:23 07/23/21 07/23/21 07/23/21 06:59 14:59 22:59 Intake Total 800 / 1672.917 460 / 460 480 / 940 Output Total 1350 / 2600 650 / 650 600 / 1250 Balance -550 / -927.083 -190 / -190 -120 / -310 Weight last 48 hrs Weight 101.151 kg Weight 102.194 kg Physical Exam Const: COMMON NORMALS: no acute distress HENMT: COMMON NORMALS: oropharynx normal Neck/C-Spine: COMMON NORMALS: no JVD Resp: COMMON NORMALS: normal respiratory effort and clear to auscultation bilaterally AUSCULTATION: clear to auscultation bilaterally Cardio: COMMON NORMALS: no JVD, regular rhythm, S1 normal heart sound present, S2 normal heart sound present and No murmurs present (Cardio) RHYTHM: regular rhythm HEART SOUNDS: S1 normal heart sound present and S2 normal heart sound present GI: COMMON NORMALS: Normal to inspection, nondistended, normoactive bowel sounds present, Soft to palpation and non-tender PALPATION: Yes Soft to palpation Extremity: COMMON NORMALS: no joint enlargement GENERAL: Yes edema Neuro: COMMON NORMALS: moves all extremities Skin: COMMON NORMALS: no rashes or lesions noted GENERAL SKIN EXAM: no rashes or lesions noted Urinary Catheter Management^: Cox: Cath Placed During This Visit: yes Reason for Continuing Indwelling Catheter: Accurate Measurement of Urinary Output in Critically Ill Patients Urinary Catheter Date of Insertion: 07/21/21 Urinary Catheter Time of Insertion: 12:00 Data : 07/23/21 02:21 07/23/21 02:21 A&P Assessment and plan (1) Acute on chronic respiratory failure with hypoxia and hypercapnia: Continue diuresis. Negative balance. Dry weight appears to be around 98 kg. Continue oxygen support. BiPAP for hypercapnic respiratory failure. Check ammonia given cirrhotic appearance of liver on imaging. Will need sleep study after discharge. Status: Acute (2) CHF (congestive heart failure): Continue Lasix 60 mg IV every 6. With ascites. montior urine output and kidney function closely Status: Acute (3) Pulmonary hypertension: Status: Acute (4) Atrial fibrillation: With some improvement. Cardizem 30 mg p.o. every 6. Sotalol 80 mg twice daily. A fib with RVR Status: Acute Qualifiers: Atrial fibrillation type: longstanding persistent Qualified Code(s): I48.11 - Longstanding persistent atrial fibrillation (5) Bilateral lower extremity edema: Status: Acute (6) Essential hypertension: Status: Acute (7) Type 2 diabetes mellitus: Status: Acute (8) S/P evacuation of subdural hematoma: Status: Acute Additional A&P Information Type 2 diabetes mellitus: A1c 6.1. Carb consistent diet. Insulin sliding scale at low-dose protocol. Possible liver cirrhosis: LFTs without abnormality. No thrombocytopenia, normal sodium. Check ammonia. Albumin is 3.1. Check INR. Hypertension: at goal. Full code. Cardiac carb consistent diet. Heparin for DVT prophylaxis Famotidine for PUD prophylaxis. Attestations Medical Necessity Statement*: Continue admission for assessment of management of hypoxia and hypercapnia with CHF exacerbation with ascites, possible new liver cirrhosis. Coding Level of Care Code Acute Chief Service Observer for [facility] Fwd Diagnoses Acute on chronic respiratory failure with hypoxia and hypercapnia J96.21; J96.22 CHF (congestive heart failure) I50.9 Pulmonary hypertension I27.20 Atrial fibrillation I48.11 Atrial fibrillation type: longstanding persistent Bilateral lower extremity edema R60.0 Essential hypertension I10 Type 2 diabetes mellitus E11.9 S/P evacuation of subdural hematoma Z98.890; Z86.79
[2021-07-23 20:05] LABS: Glucose Point of Care 93 mg/dL (70-110)
[2021-07-23 21:30] LABS: Glucose Point of Care 108 mg/dL (70-110)
--- NOTE | 2021-07-23 22:26 | PC.NURSE ---
Addendum entered by Marlen Gavin RN 07/23/21 22:26: Spoke with Dr Chen. Possible plan for 1:[address] Chen that patient was repositioned more upright. Patient is leaving bipap in place at this time. Patient appears more comfortable and cooperative. Will continue to monitor. Original Note: Patient is becoming increasingly confused. Tearing apart her bipap. Will not stay in bed. Her night time dose of Ativan has been given earlier along with scheduled HS medications. blood sugar is 108. Informed Dr Chen.
[2021-07-24] VITALS (17 sets, daily range): BP systolic 82–112; BP diastolic 63–80; PULSE 88–105; RESP 17–27; TEMP 36.2–36.6; O2SAT 91–100
[2021-07-24] MEDS: heparin 5,000 unit/mL INJ 1 mL 5000 UNIT SUBCUT ×2 (02:15→21:58)
[2021-07-24 02:38] LABS: Basophils % 0.5 %; Eosinophils # 0.1 10^3/uL (0.0-0.8); Eosinophils % 1.2 %; Hematocrit 38.2 % (37.0-47.0); Hemoglobin 11.7 g/dL (11.5-15.3); Lymphocytes # 0.7 10^3/uL (0.8-4.8); Lymphocytes % 16.9 %; Mean Corpuscular HGB Conc 30.6 g/dL (30.0-36.0); Mean Corpuscular Hemoglobin 26.4 pg (28.0-34.0); Mean Corpuscular Volume 86.2 fl (81-99); Mean Platelet Volume 9.5 fL (7.4-10.4); Monocytes # 0.7 10^3/uL (0.2-0.9); Monocytes % 15.9 %; Neutrophils # 2.71 10^3/uL (1.8-7.7); Neutrophils % 65.3 %; Nucleated Red Blood Cells % 0 %; Platelet Count 187 10^3/cmm (130-400); Red Blood Count 4.43 10^6/uL (4.1-5.3); Red Cell Distribution Width 15.2 % (12.1-15.1); White Blood Count 4.2 10^3/uL (4.0-10.0)
[2021-07-24 02:51] LABS: INR 1.15 (0.8-1.2)
[2021-07-24] MEDS: ipratropium-albuterol 3 mL Neb INHALATION ×4 (03:01→21:05)
[2021-07-24 03:06] LABS: Alanine Aminotransferase 6 U/L (0-33); Albumin Level 3.5 g/dL (3.5-5.2); Alkaline Phosphatase 59 IU/L (35-105); Anion Gap 13.5 (5-19); Aspartate Amino Transferase 13 U/L (0-32); Blood Urea Nitrogen 16 mg/dL (8-23); Calcium 8.2 mg/dL (8.5-10.5); Carbon Dioxide 35 mmol/L (22-29); Chloride 94 mmol/L (98-107); Globulin 2.9 g/dL (1.3-4.6); Glomerular Filtration Rate 101.3 mL/min (90-130); Glucose 92 mg/dL (65-115); Osmolality Calculated 289 mOsm/kg (285-295); Potassium 3.5 mmol/L (3.5-5.1); Sodium 139 mmol/L (136-145); Total Bilirubin 0.5 mg/dL (0.15-1.2); Total Protein 6.4 g/dL (6.6-8.7)
[2021-07-24 03:07] LABS: Ammonia 62 umol/L (11-51)
--- NOTE | 2021-07-24 03:41 | PC.NURSE ---
Patient continues to be up and down all evening. Patient has been redirectable most times. Confusion appears to come and go. Refuses to wear bipap. Informed Dr Chen. Doctor placed order for 1:1 sitter to begin at shift change. Will continue to monitor.
--- NOTE | 2021-07-24 03:43 | PC.NURSE ---
1:1 every 15min documentation done on paper charting. See patient's chart.
[2021-07-24] MEDS: levothyroxine 150 mcg Tablet PO (05:15)
[2021-07-24 06:55] LABS: Glucose Point of Care 94 mg/dL (70-110)
[2021-07-24] MEDS: FUROsemide 10 mg/mL SDV 4mL 60 MG IVP ×2 (08:59→17:52)
[2021-07-24] MEDS: famotidine 20 mg/2 mL INJ IVP ×2 (09:00→21:58)
[2021-07-24] MEDS: sotalol 80 mg Tablet PO ×2 (09:00→21:59)
[2021-07-24] MEDS: dilTIAZem 30 mg Tablet PO ×3 (09:00→21:58)
[2021-07-24] MEDS: ferrous gluconate 324 mg Tablet PO ×2 (09:00→17:52)
[2021-07-24] MEDS: LORazepam 0.5 mg Tablet PO ×2 (09:18→22:01)
[2021-07-24] MEDS: budesonide 0.5 mg/2 mL Neb INHALATION ×2 (09:36→21:05)
[2021-07-24 11:12] LABS: Glucose Point of Care 92 mg/dL (70-110)
--- NOTE | 2021-07-24 11:17 | P.PN_ITS ---
Subjective Subjective: Interval history: She is feeling better. She is alert, oriented x3 today. Denies chest pain or pressure. She feels the swelling has been improving in her legs. Vitals/I&O/Wt Last Vital Signs Temp 97.2 F L 07/24/21 08:00 Pulse 100 07/24/21 09:36 Resp 20 H 07/24/21 09:36 BP 82/64 07/24/21 08:00 Pulse Ox 95 07/24/21 09:36 07/23/21 07/24/21 07/24/21 22:59 06:59 14:59 Intake Total 600 / 1060 60 / 1120 240 / 240 Output Total 600 / 1250 900 / 2150 Balance 0 / -190 -840 / -1030 240 / 240 Weight last 48 hrs Weight 101.151 kg Weight 101.151 kg Physical Exam Const: COMMON NORMALS: no acute distress and patient oriented x3 HENMT: COMMON NORMALS: oropharynx normal Neck/C-Spine: COMMON NORMALS: no JVD Resp: COMMON NORMALS: normal respiratory effort and clear to auscultation bilaterally AUSCULTATION: clear to auscultation bilaterally Cardio: COMMON NORMALS: no JVD, regular rhythm, S1 normal heart sound present, S2 normal heart sound present and No murmurs present (Cardio) RHYTHM: regular rhythm HEART SOUNDS: S1 normal heart sound present and S2 normal heart sound present GI: COMMON NORMALS: Normal to inspection, nondistended, normoactive bowel sounds present, Soft to palpation and non-tender PALPATION: Yes Soft to palpation Extremity: COMMON NORMALS: no joint enlargement GENERAL: Yes edema (Anasar ca up to upper thighs) Neuro: COMMON NORMALS: patient oriented x3 and moves all extremities Skin: COMMON NORMALS: no rashes or lesions noted GENERAL SKIN EXAM: no ra shes or lesions noted OTHER: Chronic stasis dermatitis bilaterally Urinary Catheter Management^: Cox: Cath Placed During This Visit: yes Reason for Continuing Indwelling Catheter: Acute Urinary Retention or Obstruction Urinary Catheter Date of Insertion: 07/21/21 Urinary Catheter Time of Insertion: 12:00 Data : 07/24/21 02:15 07/24/21 02:15 A&P Assessment and plan (1) Acute on chronic respiratory failure with hypoxia and hypercapnia: Mental status is very sleepy she is awake, alert, sitting up in chair. Oriented x3. Yesterday due to restlessness required one-to-one sitter. She is diuresing well, and suspect that CHF/fluid overload contributing to carbon dioxide retention. Anasarca. Continue diuresis. In negative balance. Swelling with mild improvement. Dry weight appears to be around 98 kg. Continue oxygen support. BiPAP for hypercapnic respiratory failure. Check ammonia given cirrhotic appearance of liver on imaging. Will need sleep study after discharge. Updated DPOA. Status: Acute (2) CHF (congestive heart failure): Continue Lasix 60 mg IV every 6. Monitor I&O. With ascites. montior kidney function Status: Acute (3) Pulmonary hypertension: Status: Acute (4) Atrial fibrillation: With some improvement. Cardizem 30 mg p.o. every 6. Sotalol 80 mg twice daily. A fib with RVR Status: Acute Qualifiers: Atrial fibrillation type: longstanding persistent Qualified Code(s): I48.11 - Longstanding persistent atrial fibrillation (5) Bilateral lower extremity edema: Status: Acute (6) Essential hypertension: Status: Acute (7) Type 2 diabetes mellitus: Status: Acute (8) S/P evacuation of subdural hematoma: Status: Acute Additional A&P Information Type 2 diabetes mellitus: A1c 6.1. Carb consistent diet. Insulin sliding scale at low-dose protocol. Possible liver cirrhosis: LFTs without abnormality. No thrombocytopenia, normal sodium. Mild elevation of ammonia, but today she is awake and alert, oriented x3. Significance unclear. Also with normal INR and normal albumin. Doubt current cirrhosis, but would benefit from continued outpatient follow-up and monitoring. Hypertension: at goal. Full code. Cardiac carb consistent diet. Heparin for DVT prophylaxis Famotidine for PUD prophylaxis. Attestations Medical Necessity Statement*: Continue admission for management of anasarca, CHF exacerbation. Coding Level of Care Code Acute Verification Lead for Chg Fwd Exam Comprehensive Diagnoses Acute on chronic respiratory failure with hypoxia and hypercapnia J96.21; J96.22 CHF (congestive heart failure) I50.9 Pulmonary hypertension I27.20 Atrial fibrillation I48.11 Atrial fibrillation type: longstanding persistent Bilateral lower extremity edema R60.0 Essential hypertension I10 Type 2 diabetes mellitus E11.9 S/P evacuation of subdural hematoma Z98.890; Z86.79
[2021-07-24 17:34] LABS: Glucose Point of Care 81 mg/dL (70-110)
[2021-07-24] MEDS: trazodone 100 mg Tablet PO (21:58)
[2021-07-24] MEDS: ARIPiprazole 10 mg Tablet 5 MG PO (21:58)
[2021-07-24 23:15] LABS: Glucose Point of Care 99 mg/dL (70-110)
[2021-07-25] VITALS (18 sets, daily range): BP systolic 109–121; BP diastolic 68–79; PULSE 80–105; RESP 16–27; TEMP 36.1–36.6; O2SAT 90–98
[2021-07-25] MEDS: ipratropium-albuterol 3 mL Neb INHALATION ×4 (02:41→21:11)
[2021-07-25 03:54] LABS: Basophils % 0.3 %; Eosinophils # 0.2 10^3/uL (0.0-0.8); Eosinophils % 5.2 %; Hematocrit 36.6 % (37.0-47.0); Hemoglobin 11.1 g/dL (11.5-15.3); Mean Corpuscular HGB Conc 30.3 g/dL (30.0-36.0); Mean Corpuscular Hemoglobin 26.1 pg (28.0-34.0); Mean Corpuscular Volume 86.1 fl (81-99); Monocytes # 0.7 10^3/uL (0.2-0.9); Monocytes % 18.5 %; Neutrophils # 1.77 10^3/uL (1.8-7.7); Nucleated Red Blood Cells % 0 %; Platelet Count 170 10^3/cmm (130-400); Red Blood Count 4.25 10^6/uL (4.1-5.3); Red Cell Distribution Width 15.2 % (12.1-15.1); White Blood Count 3.7 10^3/uL (4.0-10.0)
[2021-07-25] MEDS: heparin 5,000 unit/mL INJ 1 mL 5000 UNIT SUBCUT ×3 (04:06→21:39)
[2021-07-25 04:07] LABS: Alanine Aminotransferase 7 U/L (0-33); Albumin Level 3.3 g/dL (3.5-5.2); Alkaline Phosphatase 56 IU/L (35-105); Blood Urea Nitrogen 12 mg/dL (8-23); Calcium 7.9 mg/dL (8.5-10.5); Carbon Dioxide 37 mmol/L (22-29); Chloride 93 mmol/L (98-107); Globulin 2.3 g/dL (1.3-4.6); Glucose 77 mg/dL (65-115); Osmolality Calculated 287 mOsm/kg (285-295); Sodium 139 mmol/L (136-145); Total Bilirubin 0.5 mg/dL (0.15-1.2); Total Protein 5.6 g/dL (6.6-8.7)
[2021-07-25 04:08] LABS: Anion Gap 12.3 (5-19); Aspartate Amino Transferase 17 U/L (0-32); Potassium 3.3 mmol/L (3.5-5.1)
[2021-07-25 04:09] LABS: Magnesium 1.6 mg/dL (1.7-2.3)
[2021-07-25] MEDS: levothyroxine 150 mcg Tablet PO (05:45)
[2021-07-25 06:41] LABS: Glucose Point of Care 79 mg/dL (70-110)
--- NOTE | 2021-07-25 08:34 | PC.NURSE ---
Patient wore BiPAP for around 4 hours overnight, then refused to wear BiPAP to the rest of the night.
--- NOTE | 2021-07-25 09:02 | ECG_ITS ---
[facility] Test Date: 2021-07-25 Pat Name: Ivette Wheeler Department: Room: 108 Gender: Female Regular Senior Care Provider: : 1960 Requested By: Douglas Richardson Order Number: [id number] [place] MD: Norah Talbot M.D. Measurements Intervals [place] Rate: 87 P: NE: QRS: 17 QRSD: 98 T: -18 QT: 392 QTc: 472 Interpretive Statements ATRIAL FIBRILLATION INCOMPLETE RIGHT BUNDLE BRANCH BLOCK [90+ ms QRS DURATION, TERMINAL R IN V1/V2, 40+ ms S IN I/aVL/V4/V5/V6] ABNORMAL RHYTHM ECG Compared to ECG 07/20/2021 22:16:45 Incomplete right bundle-branch block now present Electronically Signed On 07-26-2021 20:35:31 CHIEF CRUISER by Norah Talbot M.D. [id number]
[2021-07-25] MEDS: LORazepam 0.5 mg Tablet PO ×2 (09:06→21:38)
[2021-07-25] MEDS: sotalol 80 mg Tablet PO ×2 (09:06→21:40)
[2021-07-25] MEDS: magnesium sulfate premix 2 GM/50 ML PIGGYBACK IV (09:06)
[2021-07-25] MEDS: dilTIAZem 30 mg Tablet PO ×4 (09:06→21:38)
[2021-07-25] MEDS: ferrous gluconate 324 mg Tablet PO ×2 (09:06→17:46)
[2021-07-25] MEDS: famotidine 20 mg/2 mL INJ IVP ×2 (09:06→21:40)
--- NOTE | 2021-07-25 10:19 | PC.CHAP ---
Pastoral Care Encounter/Spiritual Assessment Type of Contact [] Declined raise drill operator visit [] Patient/Family/Request visit [] Outpatient visit [] Follow-up visit [] Physician referral [] Code/Alert [x] Routine visit [] Staff referral [] Actively dying [x] Patient sleeping [] Family support [] [] Out of room [] Palliative care [] [] Receiving care in room [] Pre-surgical visit [] Trauma [] Long length of stay [] ICU visit [] Other: Relational/Emotional Strength [] Patient feels connected with others/family/visitors/staff [] Distress [] Loneliness/isolation [] Abandonment Spirituality of Patient [] Person of Flaca [] Attends Rastafarian of their Flaca [] Believes in Prayer [] Reads Bible or Confucianism materials [] There are Spiritual issues to be addressed Sample Clerk Interventions [x] Prayer [] Active listening [] Non-anxious presence [] Spiritual/emotional support [] Crisis/trauma care [] Spiritual counseling [] Bereavement support [] Provided bereavement packet [] Provided Bible/devotional materials [] Provided toy/stuffed animal, coloring book to patient or family member [] Provided Communion [] Anointing/[place] [] Salvation [x] Completed spiritual assessment [] Other: Impact on Illness or Injury [] Angry [] Fearful [] Anxious [] Often cries [] Exhaustion [] Unable to work [] Unable to attend mosque [] Unable to walk/stand [] Unable to read [] Unable to drive [] Unable to eat/drink [] Unable to sleep [] Unable to be with family [] Patient intubated [] Other: Summary Time spent with patient
[2021-07-25] MEDS: budesonide 0.5 mg/2 mL Neb INHALATION ×2 (10:21→21:11)
[2021-07-25] MEDS: lidocaine 1% 5 ML in potassium chloride premix 100 ML 25 ML IV (11:29)
[2021-07-25 11:34] LABS: Glucose Point of Care 81 mg/dL (70-110)
[2021-07-25 16:15] LABS: Glucose Point of Care 94 mg/dL (70-110)
--- NOTE | 2021-07-25 17:43 | P.PN_ITS ---
Subjective Subjective: Interval history: During the day today she is sitting up in chair, she has been getting up from the bed. Had a difficult night, at night needing restless, taking off BiPAP. On and off confusion. This appears to be nightly occurrence, possibly due to owning as she does much better during the day. Vitals/I&O/Wt Last Vital Signs Temp 96.9 F L 07/25/21 16:00 Pulse 95 07/25/21 16:00 Resp 20 H 07/25/21 16:00 BP 112/75 07/25/21 16:00 Pulse Ox 98 07/25/21 16:00 07/25/21 07/25/21 07/25/21 06:59 14:59 22:59 Intake Total 450 / 450 105 / 555 Output Total 350 / 2625 350 / 350 Balance -350 / -2115 450 / 450 -245 / 205 Weight last 48 hrs Weight 96.116 kg Weight 101.151 kg Physical Exam Narrative: EXAM NARRATIVE: Sitting up in chair, comfortable, pleasant, cooperative. Const: COMMON NORMALS: no acute distress, patient oriented x3 (Knows she is in the hospital and states the year correctly.) and alert ORIENTATION/CONS CIOUSNESS: Yes awake HENMT: COMMON NORMALS: oropharynx normal Neck/C-Spine: COMMON NORMALS: no JVD Resp: COMMON NORMALS: normal respiratory effort and clear to auscultation bilaterally AUSCULTATION: clear to auscultation bilaterally Cardio: COMMON NORMALS: no JVD, regular rhythm, S1 normal heart sound present, S2 normal heart sound present and No murmurs present (Cardio) RHYTHM: regular rhythm HEART SOUNDS: S1 normal heart sound present and S2 normal heart sound present GI: COMMON NORMALS: Normal to inspection, nondistended, normoactive bowel sounds present, Soft to palpation and non-tender PALPATION: Yes Soft to palpation Extremity: COMMON NORMALS: no joint enlargement GENERAL: Yes edema (2+ LE edema) Neuro: COMMON NORMALS: patient oriented x3 (Knows she is in the hospital and states the year correctly.) and moves all extremities SENSORIUM/ORIENTATION: Yes alert Skin: COMMON NORMALS: no rashes or lesions noted GENERAL SKIN EXAM: no rashes or lesions noted OTHER: Chronic stasis dermatitis bilaterally Urinary Catheter Management^: Cox: Cath Placed During This Visit: yes Reason for Continuing Indwelling Catheter: Accurate Measurement of Urinary Output in Critically Ill Patients Urinary Catheter Date of Insertion: 07/21/21 Urinary Catheter Time of Insertion: 12:00 Data : 07/25/21 03:27 07/25/21 03:27 A&P Assessment and plan (1) Acute on chronic respiratory failure with hypoxia and hypercapnia: During the day she is doing very well, she is awake, alert, oriented x3, if mild confusion, redirectable. Lites appear to be more difficult with sundowning, episodes of agitation. Not keeping BiPAP on. See below. In terms of weight appears to be achieving dry weight, currently down to 96 kg, lowest weight in the last several months, although has still residual persistent edema. Attempt to transition to oral diuretic. Currently 60 mg twice daily. Continue oxygen support. BiPAP for hypercapnic respiratory failure. Mild ammonia abnormality, 62, some cirrhotic-like appearance of the liver on imaging, although cirrhosis not supported by laboratory studies. Significance of ammonia is not entirely clear. Given episodes of sundowning/confusion will add lactulose. Will need sleep study after discharge. Status: Acute (2) Sundowning: Nightly episodes of sundowning, restlessness, nonadherence with BiPAP. These episodes would put her in potentially unsafe situation at home at assisted living where she lives by herself. Will increase aripiprazole dose to 10 mg nightly. Continue trazodone. Ativan as needed. One-to-one sitter. May need long-term assisted placement. Status: Acute (3) CHF (congestive heart failure): She appears to have come down to dry weight. Does still have lower extr emity edema, although it is better than previously. Will attempt to transition to oral Lasix. Monitor I&O. With ascites. montior kidney function Status: Acute (4) Pulmonary hypertension: Status: Acute (5) Atrial fibrillation: With some improvement. Cardizem 30 mg p.o. every 6. Sotalol 80 mg twice daily. A fib with RVR, now rate controlled Status: Acute Qualifiers: Atrial fibrillation type: longstanding persistent Qualified Code(s): I48.11 - Longstanding persistent atrial fibrillation (6) Bilateral lower extremity edema: Status: Acute (7) Essential hypertension: Status: Acute (8) Type 2 diabetes mellitus: Status: Acute (9) S/P evacuation of subdural hematoma: Status: Acute (10) Hypomagnesemia: Replaced. Recheck. Status: Acute Additional A&P Information Hypokalemia: Replaced Type 2 diabetes mellitus: A1c 6.1. Carb consistent diet. Insulin sliding scale at low-dose protocol. Possible liver cirrhosis: LFTs without abnormality. No thrombocytopenia, normal sodium. Mild elevation of ammonia, but today she is awake and alert, oriented x3. Significance unclear. Also with normal INR and normal albumin. Doubt current cirrhosis, but would benefit from continued outpatient follow-up and m onitoring. Hypertension: at goal. Full code. Cardiac carb consistent diet. Heparin for DVT prophylaxis Famotidine for PUD prophylaxis. Attestations Medical Necessity Statement*: Continue admission for optimization of medication given recurrent episodes of sundowning in a lady who lives alone at assisted living, transition to oral diuretic and treatment of congestive heart exacerbation, disposition planning and arrangements. Coding Level of Care Code Acute Pre Billing Specialist for [facility] Fwd Exam Comprehensive Diagnoses Acute on chronic respiratory failure with hypoxia and hypercapnia J96.21; J96.22 Sundowning F05 CHF (congestive heart failure) I50.9 Pulmonary hypertension I27.20 Atrial fibrillation I48.11 Atrial fibrillation type: longstanding persistent Bilateral lower extremity edema R60.0 Essential hypertension I10 Type 2 diabetes mellitus E11.9 S/P evacuation of subdural hematoma Z98.890; Z86.79 Hypomagnesemia E83.42
[2021-07-25] MEDS: FUROsemide 10 mg/mL SDV 4mL 60 MG IVP (17:46)
[2021-07-25 21:37] LABS: Glucose Point of Care 113 mg/dL (70-110)
[2021-07-25] MEDS: ARIPiprazole 10 mg Tablet PO (21:38)
[2021-07-25] MEDS: lactulose oral liq 20 gm/30 mL UDC PO (21:39)
[2021-07-25] MEDS: trazodone 100 mg Tablet PO (21:39)
[2021-07-26] VITALS (17 sets, daily range): BP systolic 100–117; BP diastolic 59–83; PULSE 83–102; RESP 15–27; TEMP 36.3–36.6; O2SAT 90–99
[2021-07-26] MEDS: lactulose oral liq 20 gm/30 mL UDC PO (01:46)
[2021-07-26] MEDS: ipratropium-albuterol 3 mL Neb INHALATION ×4 (02:33→22:03)
[2021-07-26] MEDS: heparin 5,000 unit/mL INJ 1 mL 5000 UNIT SUBCUT ×3 (03:01→20:27)
[2021-07-26 03:57] LABS: Hematocrit 38.2 % (37.0-47.0); Hemoglobin 11.6 g/dL (11.5-15.3); Mean Corpuscular HGB Conc 30.4 g/dL (30.0-36.0); Mean Corpuscular Hemoglobin 26.1 pg (28.0-34.0); Mean Platelet Volume 10.3 fL (7.4-10.4); Platelet Count 193 10^3/cmm (130-400); Red Blood Count 4.44 10^6/uL (4.1-5.3); White Blood Count 4.3 10^3/uL (4.0-10.0)
[2021-07-26 04:20] LABS: Alanine Aminotransferase 7 U/L (0-33); Albumin Level 3.4 g/dL (3.5-5.2); Alkaline Phosphatase 58 IU/L (35-105); Blood Urea Nitrogen 9 mg/dL (8-23); Calcium 8.3 mg/dL (8.5-10.5); Carbon Dioxide 36 mmol/L (22-29); Chloride 94 mmol/L (98-107); Globulin 2.5 g/dL (1.3-4.6); Glomerular Filtration Rate 161.7 mL/min (90-130); Glucose 96 mg/dL (65-115); Osmolality Calculated 289 mOsm/kg (285-295); Sodium 140 mmol/L (136-145); Total Bilirubin 0.6 mg/dL (0.15-1.2); Total Protein 5.9 g/dL (6.6-8.7)
[2021-07-26 04:22] LABS: Anion Gap 13.5 (5-19); Aspartate Amino Transferase 16 U/L (0-32); Potassium 3.5 mmol/L (3.5-5.1)
[2021-07-26 04:28] LABS: Magnesium 1.9 mg/dL (1.7-2.3)
[2021-07-26] MEDS: levothyroxine 150 mcg Tablet PO (05:20)
[2021-07-26 07:57] LABS: Slide Review Slide Review Perform
[2021-07-26 08:00] LABS: Absolute Eosinophils 0.2 10^3/cmm (0.0-0.7); Absolute Neutrophil 2.7 10^3/cmm (1.4-6.5); Absolute Segmented Neutrophil 2.5 10/cmm (1.6-7.1); Band Neutrophils Absolute 0.2 10^3/cmm (0.0-1.2); Eosinophils 5 %; Hypochromasia 1+; Lymphocytes 20 %; Lymphocytes Absolute 0.9 10^3/cmm (1.2-3.4); Monocytes Absolute 0.4 10^3/cmm (0.1-0.6); Platelet Estimate Normal (Normal); Poikilocytosis Trace; Segmented Neutrophils 58 %; Total Cells Counted 100 (0-100)
[2021-07-26] MEDS: famotidine 20 mg/2 mL INJ IVP ×2 (08:38→20:27)
[2021-07-26] MEDS: LORazepam 0.5 mg Tablet PO ×2 (08:39→20:27)
[2021-07-26] MEDS: dilTIAZem 30 mg Tablet PO ×4 (08:39→20:27)
[2021-07-26] MEDS: ferrous gluconate 324 mg Tablet PO ×2 (08:39→17:14)
[2021-07-26] MEDS: sotalol 80 mg Tablet PO ×2 (08:39→20:27)
[2021-07-26] MEDS: FUROsemide 40 mg Tablet 60 MG PO (08:39)
[2021-07-26] MEDS: budesonide 0.5 mg/2 mL Neb INHALATION ×2 (08:58→22:03)
[2021-07-26 11:03] LABS: Glucose Point of Care 111 mg/dL (70-110)
[2021-07-26 16:52] LABS: Glucose Point of Care 109 mg/dL (70-110)
--- NOTE | 2021-07-26 17:26 | PM.PN ---
Subjective Subjective: Interval history: Please set up in a chair. Denies pain or discomfort. Seems was still getting restless last night per report. Although perhaps not as bad as the night before. Denies chest pain or pressure. States breathing is comfortable at rest. Vitals/I&O/Wt Last Vital Signs Temp 97.3 F L 07/26/21 16:00 Pulse 89 07/26/21 16:00 Resp 22 H 07/26/21 16:00 BP 105/73 07/26/21 16:00 Pulse Ox 96 07/26/21 16:00 07/26/21 07/26/21 07/26/21 06:59 14:59 22:59 Intake Total 150 / 1215 720 / 720 240 / 960 Output Total 150 / 2150 Balance 0 / -935 720 / 720 240 / 960 Weight last 48 hrs Weight 95.708 kg Weight 96.116 kg Physical Exam Narrative: EXAM NARRATIVE: Sitting up in chair, comfortable, pleasant, cooperative. Const: COMMON NORMALS: no acute distress, patient oriented x3 (Knows she is in the hospital and states the year correctly.) and alert ORIENTATION/CONSCIOUSNESS: Yes awake HENMT: COMMON NORMALS: oropharynx normal Neck/C-Spine: COMMON NORMALS: no JVD Resp: COMMON NORMALS: normal respiratory effort and clear to auscultation bilaterally AUSCULTATION: clear to auscultation bilaterally Cardio: COMMON NORMALS: no JVD, regular rhythm, S1 normal heart sound present, S2 normal heart sound present and No murmurs present (Cardio) RHYTHM: regular rhythm HEART SOUNDS: S1 normal heart sound present and S2 normal heart sound present GI: COMMON NORMALS: Normal to inspection, nondistended, normoactive bowel sounds present, Soft to palpation and non-tender PALPATION: Yes Soft to palpation Extremity: COMMON NORMALS: no joint enlargement GENERAL: Yes edema (2+ LE edema) Neuro: COMMON NORMALS: patient oriented x3 (Knows she is in the hospital and states the year correctly.) and moves all extremities SENSORIUM/ORIENTATION: Yes alert Skin: COMMON NORMALS: no rashes or lesions noted GENERAL SKIN EXAM: no rashes or lesions noted OTHER: Chronic stasis dermatitis bilaterally Urinary Catheter Management^: Cox: Cath Placed During This Visit: yes Reason for Continuing Indwelling Catheter: Accurate Measurement of Urinary Output in Critically Ill Patients Urinary Catheter Date of Insertion: 07/21/21 Urinary Catheter Time of Insertion: 12:00 Data : 07/26/21 03:43 07/26/21 03:43 A&P Assessment and plan (1) Acute on chronic respiratory failure with hypoxia and hypercapnia: Persistent edema to thighs. Weight is lower than usual 95.7, she normally would have achieved dry weight here it appears, but after COVID-19 appears she took a while to start eating again, and sounds like probably lost weight, so dry weight likely is lower. We have resumed IV diuretics. She is also found to require 1 L of oxygen with exertion due to desaturation down to 83% with ambulation. Continue diuresis. Case management also to find out whether she can have oxygen at skilled nursing as it is not given. Continue oxygen support. BiPAP for hypercapnic respiratory failure. Mild ammonia abnormality, 62, some cirrhotic-like appearance of the liver on imaging, although cirrhosis not supported by laboratory studies. Significance of ammonia is not entirely clear. Given episodes of sundowning/confusion will add lactulose. Will need sleep study after discharge. Status: Acute (2) Sundowning: Aripiprazole dose was increased to 10 mg nightly, patient had done perhaps slightly better, but still rather a restless night. Continue at higher dose. Continue to monitor. Nightly episodes of sundowning, restlessness, nonadherence with BiPAP. These episodes would put her in potentially unsafe situation at home at assisted living where she lives by herself. Increased aripiprazole dose to 10 mg nightly. Continue trazodone. Ativan as needed. One-to-one sitter. May need long-term jail placement. Status: Acute (3) CHF (congestive heart failure): Given persistent anasarca, including up to thighs, as per discussion with guardian likely has had weight loss recently as he points out she was not eating after her COVID-19 illness. Switch back to IV Lasix, continue 60 mg twice daily. Continue to monitor I&O, renal function. Oxygenation. Still requiring 1 L of oxygen currently with exertion. Unclear if she can have oxygen at the skilled nursing. CM to find out. With ascites. montior kidney function Status: Acute (4) Pulmonary hypertension: Status: Acute (5) Atrial fibrillation: With some improvement. Cardizem 30 mg p.o. every 6. Sotalol 80 mg twice daily. A fib with RVR, now rate controlled Status: Acute Qualifiers: Atrial fibrillation type: longstanding persistent Qualified Code(s): I48.11 - Longstanding persistent atrial fibrillation (6) Bilateral lower extremity edema: Status: Acute (7) Essential hypertension: Status: Acute (8) Type 2 diabetes mellitus: Status: Acute (9) S/P evacuation of subdural hematoma: Status: Acute (10) Hypomagnesemia: Replaced. Recheck. Status: Acute Additional A&P Information Hypokalemia: Replaced Type 2 diabetes mellitus: A1c 6.1. Carb consistent diet. Insulin sliding scale at low-dose protocol. Possible liver cirrhosis: LFTs without abnormality. No thrombocytopenia, normal sodium. Mild elevation of ammonia, but today she is awake and alert, oriented x3. Significance unclear. Also with normal INR and normal albumin. Doubt current cirrhosis, but would benefit from continued outpatient follow-up and monitoring. Hypertension: at goal. Full code. Cardiac carb consistent diet. Heparin for DVT prophylaxis Famotidine for PUD prophylaxis. Attestations Medical Necessity Statement*: Continue admission for assessment of management of CHF exacerbation, anasarca, oxygen requirement, optimization of psychiatric medication with sundowning, disposition planning. Coding Level of Care Code Acute Air And Water Tester for g Fwd Diagnoses Acute on chronic respiratory failure with hypoxia and hypercapnia J96.21; J96.22 Sundowning F05 CHF (congestive heart failure) I50.9 Pulmonary hypertension I27.20 Atrial fibrillation I48.11 Atrial fibrillation type: longstanding persistent Bilateral lower extremity edema R60.0 Essential hypertension I10 Type 2 diabetes mellitus E11.9 S/P evacuation of subdural hematoma Z98.890; Z86.79 Hypomagnesemia E83.42
[2021-07-26] MEDS: FUROsemide 10 mg/mL SDV 10mL 60 MG IVP (18:47)
--- NOTE | 2021-07-26 20:04 | PC.NURSE ---
pt cont to require 1:1 care due to impulsive behavior and high chance for falling.pt was cooperative and oriented for most of shift.
[2021-07-26 20:23] LABS: Glucose Point of Care 109 mg/dL (70-110)
[2021-07-26] MEDS: ARIPiprazole 10 mg Tablet PO (20:27)
[2021-07-26] MEDS: trazodone 100 mg Tablet PO (20:27)
[2021-07-27] VITALS (16 sets, daily range): BP systolic 96–118; BP diastolic 31–84; PULSE 80–106; RESP 12–24; TEMP 36.4–36.6; O2SAT 91–97; BMI 36.2
[2021-07-27] MEDS: ipratropium-albuterol 3 mL Neb INHALATION ×4 (04:21→21:13)
[2021-07-27] MEDS: levothyroxine 150 mcg Tablet PO (05:27)
[2021-07-27] MEDS: lactulose oral liq 20 gm/30 mL UDC PO (05:27)
[2021-07-27] MEDS: heparin 5,000 unit/mL INJ 1 mL 5000 UNIT SUBCUT ×3 (05:28→21:34)
[2021-07-27 06:47] LABS: Glucose Point of Care 84 mg/dL (70-110)
[2021-07-27] MEDS: LORazepam 0.5 mg Tablet PO ×2 (07:52→21:35)
[2021-07-27] MEDS: dilTIAZem 30 mg Tablet PO ×4 (07:52→21:33)
[2021-07-27] MEDS: sotalol 80 mg Tablet PO ×2 (07:55→21:33)
[2021-07-27] MEDS: ferrous gluconate 324 mg Tablet PO ×2 (07:55→17:22)
[2021-07-27 08:16] LABS: Basophils % 0.6 %; Eosinophils # 0.2 10^3/uL (0.0-0.8); Eosinophils % 3.2 %; Hematocrit 39.8 % (37.0-47.0); Lymphocytes # 1.6 10^3/uL (0.8-4.8); Lymphocytes % 33.2 %; Mean Corpuscular HGB Conc 30.2 g/dL (30.0-36.0); Mean Corpuscular Hemoglobin 26.4 pg (28.0-34.0); Mean Corpuscular Volume 87.5 fl (81-99); Mean Platelet Volume 10.2 fL (7.4-10.4); Monocytes # 0.6 10^3/uL (0.2-0.9); Monocytes % 12.3 %; Neutrophils # 2.39 10^3/uL (1.8-7.7); Neutrophils % 50.5 %; Nucleated Red Blood Cells % 0 %; Platelet Count 177 10^3/cmm (130-400); Red Blood Count 4.55 10^6/uL (4.1-5.3); Red Cell Distribution Width 15.3 % (12.1-15.1); White Blood Count 4.7 10^3/uL (4.0-10.0)
[2021-07-27 08:38] LABS: Anion Gap 12.3 (5-19); Blood Urea Nitrogen 8 mg/dL (8-23); Calcium 8.3 mg/dL (8.5-10.5); Carbon Dioxide 39 mmol/L (22-29); Chloride 93 mmol/L (98-107); Glucose 88 mg/dL (65-115); Magnesium 2.2 mg/dL (1.7-2.3); Osmolality Calculated 290 mOsm/kg (285-295); Potassium 3.3 mmol/L (3.5-5.1); Sodium 141 mmol/L (136-145)
[2021-07-27] MEDS: budesonide 0.5 mg/2 mL Neb INHALATION ×2 (08:55→21:13)
[2021-07-27] MEDS: famotidine 20 mg/2 mL INJ IVP (08:57)
[2021-07-27] MEDS: FUROsemide 10 mg/mL SDV 10mL 60 MG IVP ×2 (08:58→18:52)
[2021-07-27 08:59] LABS: Slide Review Slide Review Perform
[2021-07-27 11:03] LABS: Glucose Point of Care 108 mg/dL (70-110)
--- NOTE | 2021-07-27 13:25 | PC.CHAP ---
Pastoral Care Encounter/Spiritual Assessment Type of Contact [] Declined electronic systems security assessment visit [] Patient/Family/Request visit [] Outpatient visit [xx] Follow-up visit [] Physician referral [] Code/Alert [xx] Routine visit [] Staff referral [] Actively dying [] Patient sleeping [] Family support [] [] Out of room [] Palliative care [] [] Receiving care in room [] Pre-surgical visit [] Trauma [xx] Long length of stay [] ICU visit [] Other: Relational/Emotional Strength [xx] Patient feels connected with others/family/visitors/staff [] Distress [] Loneliness/isolation [] Abandonment Spirituality of Patient [xx] Person of Flaca [] Attends [employer]eterian of their [place] [xx] Believes in Prayer [] Reads Bible or Restorationism materials [] There are Spiritual issues to be addressed Supervisor Painting Interventions [xx] Prayer [xx] Active listening [xx] Non-anxious presence [] Spiritual/emotional support [] Crisis/trauma care [] Spiritual counseling [] Bereavement support [] Provided bereavement packet [] Provided Bible/devotional materials [] Provided toy/stuffed animal, coloring book to patient or family member [] Provided Communion [] Anointing/[place] [] Salvation [xx] Completed spiritual assessment [] Other: Impact on Illness or Injury [] Angry [] Fearful [] Anxious [] Often cries [] Exhaustion [] Unable to work [xx] Unable to attend sikhism [] Unable to walk/stand [] Unable to read [] Unable to drive [] Unable to eat/drink [] Unable to sleep [xx] Unable to be with family [] Patient intubated [] Other: Summary Patient said she feels better but was very drowsy. She kept dozing off for few seconds at a time during our conversation so visit was shortened. Time spent with patient 3 minutes
[2021-07-27 16:12] LABS: Glucose Point of Care 115 mg/dL (70-110)
[2021-07-27 20:34] LABS: Glucose Point of Care 126 mg/dL (70-110)
--- NOTE | 2021-07-27 21:17 | P.PN_ITS ---
Subjective Subjective: Interval history: Currently he is doing well. Denies chest pain or pressure. Denies trouble breathing. Per report by nursing staff again had a very restless night. Vitals/I&O/Wt Last Vital Signs Temp 97.7 F 07/27/21 19:09 Pulse 100 07/27/21 19:09 Resp 23 H 07/27/21 19:09 BP 117/72 07/27/21 19:09 Pulse Ox 95 07/27/21 19:09 07/27/21 07/27/21 07/27/21 06:59 14:59 22:59 Intake Total 120 / 1140 472 / 472 236 / 708 Output Total 475 / 950 1500 / 1500 Balance -355 / 190 -1028 / -1028 236 / -792 Weight last 48 hrs Weight 95.708 kg Weight 95.708 kg Physical Exam 2 Narrative: EXAM NARRATIVE: Sitting up in chair, comfortable, pleasant, cooperative. Const: COMMON NORMALS: no acute distress, patient oriented x3 (Knows she is in the hospital and states the year correctly.) and alert ORIENTATION/CONSCIOUSNESS: Yes awake HENMT: COMMON NORMALS: oropharynx normal Neck/C-Spine: COMMON NORMALS: no JVD Resp: COMMON NORMALS: normal respiratory effort and clear to auscultation bilaterally AUSCULTATION: clear to auscultation bilaterally Cardio: COMMON NORMALS: no JVD, regular rhythm, S1 normal heart sound present, S2 normal heart sound present and No murmurs present (Cardio) RHYTHM: regular rhythm HEART SOUNDS: S1 normal heart sound present and S2 normal heart sound present GI: COMMON NORMALS: Normal to inspection, nondistended, normoactive bowel sounds present, Soft to palpation and non-tender PALPATION: Yes Soft to palpation Extremity: COMMON NORMALS: no joint enlargement GENERAL: Yes edema (2+ LE edema) Neuro: COMMON NORMALS: patient oriented x3 (Knows she is in the hospital and states the year correctly.) and moves all extremities SENSORIUM/ORIENTATION: Yes alert Skin: COMMON NORMALS: no rashes or lesions noted GENERAL SKIN EXAM: no rashes or lesions noted OTHER: Chronic stasis dermatitis bilaterally Urinary Catheter Management^: Cox: Cath Placed During This Visit: yes Reason for Continuing Indwelling Catheter: Other Urinary Catheter Date of Insertion: 07/21/21 Urinary Catheter Time of Insertion: 12:00 Data : 07/27/21 07:31 07/27/21 07:31 A&P Assessment and plan (1) Sundowning: As she again has had a restless night. At this time continue aripiprazole 10 mg. Requested psychiatry consultation for additional assistance on optimization of medication other recommendations. Nightly episodes of sundowning, restlessness, nonadherence with BiPAP. These episodes would put her in potentially unsafe situation at home at assisted living where she lives by herself. Increased aripiprazole dose to 10 mg nightly. Continue trazodone. Ativan as needed. One-to-one sitter. May need long-term correction placement. Status: Acute (2) CHF (congestive heart failure): Continue IV Lasix 60 mg twice daily given persistent edema up to thighs. Weight has been decreasing. Likely has had weight loss recently as he points out she was not eating after her COVID-19 illness. Unclear if she can have oxygen at the residential. CM to find out. With ascites. montior kidney function Status: Acute (3) Acute on chronic respiratory failure with hypoxia and hypercapnia: Continue diuresis as above. She is also found to require 1 L of oxygen with exertion due to desaturation down to 83% with ambulation. Continue diuresis. Case management also to find out whether she can have oxygen at residential as it is not given. Sleep study after discharge. Mild ammonia abnormality, 62, some cirrhotic-like appearance of the liver on imaging, although cirrhosis not supported by laboratory studies. Significance of ammonia is not entirely clear. Given episodes of sundowning/confusion will add lactulose. Status: Acute (4) Pulmonary hypertension: Status: Acute (5) Atrial fibrillation: With some improvement. Cardizem 30 mg p.o. every 6. Sotalol 80 mg twice daily. A fib with RVR, now rate controlled Status: Acute Qualifiers: Atrial fibrillation type: longstanding persistent Qualified Code(s): I48.11 - Longstanding persistent atrial fibrillation (6) Bilateral lower extremity edema: Status: Acute (7) Essential hypertension: Status: Acute (8) Type 2 diabetes mellitus: Status: Acute (9) S/P evacuation of subdural hematoma: Status: Acute (10) Hypomagnesemia: Replaced. Recheck. Status: Acute Additional A&P Information Hypokalemia: Replaced Type 2 diabetes mellitus: A1c 6.1. Carb consistent diet. Insulin sliding scale at low-dose protocol. Possible liver cirrhosis: LFTs without abnormality. No thrombocytopenia, normal sodium. Mild elevation of ammonia, but today she is awake and alert, oriented x3. Significance unclear. Also with normal INR and normal albumin. Doubt current cirrhosis, but would benefit from continued outpatient follow-up and monitoring. Hypertension: at goal. Full code. Cardiac carb consistent diet. Heparin for DVT prophylaxis Famotidine for PUD prophylaxis. Attestations Medical Necessity Statement*: Continue admission for assessment management of restlessness during nighttime in a lady who lives in a residential, CHF exacerbation with persistent anasarca. Coding Level of Care Code Acute Sql Architect for [facility] Fwd Diagnoses F05 CHF (congestive heart failure) I50.9 Acute on chronic respiratory failure with hypoxia and hypercapnia J96.21; J96.22 Pulmonary hypertension I27.20 Atrial fibrillation I48.11 Atrial fibrillation type: longstanding persistent Bilateral lower extremity edema R60.0 Essential hypertension I10 Type 2 diabetes mellitus E11.9 S/P evacuation of subdural hematoma Z98.890; Z86.79 Hypomagnesemia E83.42
[2021-07-27] MEDS: famotidine 20 mg Tablet PO (21:32)
[2021-07-27] MEDS: ARIPiprazole 10 mg Tablet PO (21:32)
[2021-07-27] MEDS: trazodone 100 mg Tablet PO (21:33)
[2021-07-27] MEDS: potassium chloride ER 20 mEq Tablet PO (21:46)
[2021-07-28] VITALS (16 sets, daily range): BP systolic 89–121; BP diastolic 62–85; PULSE 70–100; RESP 18–32; TEMP 36.2–36.5; O2SAT 89–95
[2021-07-28] MEDS: heparin 5,000 unit/mL INJ 1 mL 5000 UNIT SUBCUT ×3 (03:08→19:58)
[2021-07-28] MEDS: acetaminophen 325 mg Tablet 650 MG PO (03:35)
[2021-07-28] MEDS: ipratropium-albuterol 3 mL Neb INHALATION ×4 (03:48→21:52)
[2021-07-28] MEDS: levothyroxine 150 mcg Tablet PO (05:02)
[2021-07-28 05:04] LABS: Basophils % 0.8 %; Eosinophils # 0.2 10^3/uL (0.0-0.8); Eosinophils % 2.9 %; Hematocrit 37.9 % (37.0-47.0); Hemoglobin 11.3 g/dL (11.5-15.3); Lymphocytes # 1.5 10^3/uL (0.8-4.8); Lymphocytes % 27.9 %; Mean Corpuscular HGB Conc 29.8 g/dL (30.0-36.0); Mean Corpuscular Volume 87.3 fl (81-99); Monocytes # 0.6 10^3/uL (0.2-0.9); Monocytes % 10.7 %; Neutrophils # 3.01 10^3/uL (1.8-7.7); Neutrophils % 57.5 %; Nucleated Red Blood Cells % 0 %; Platelet Count 173 10^3/cmm (130-400); Red Blood Count 4.34 10^6/uL (4.1-5.3); Red Cell Distribution Width 15.2 % (12.1-15.1); White Blood Count 5.2 10^3/uL (4.0-10.0)
[2021-07-28 05:23] LABS: Anion Gap 13.5 (5-19); Blood Urea Nitrogen 8 mg/dL (8-23); Calcium 8.3 mg/dL (8.5-10.5); Carbon Dioxide 38 mmol/L (22-29); Chloride 95 mmol/L (98-107); Glucose 91 mg/dL (65-115); Osmolality Calculated 294 mOsm/kg (285-295); Potassium 3.5 mmol/L (3.5-5.1); Sodium 143 mmol/L (136-145)
[2021-07-28 05:43] LABS: Slide Review Slide Review Perform
[2021-07-28 06:41] LABS: Glucose Point of Care 93 mg/dL (70-110)
[2021-07-28] MEDS: budesonide 0.5 mg/2 mL Neb INHALATION ×2 (08:24→21:52)
[2021-07-28] MEDS: FUROsemide 10 mg/mL SDV 10mL 60 MG IVP ×2 (08:37→18:27)
[2021-07-28] MEDS: famotidine 20 mg Tablet PO ×2 (08:37→19:58)
[2021-07-28] MEDS: dilTIAZem 30 mg Tablet PO ×4 (08:37→19:57)
[2021-07-28] MEDS: sotalol 80 mg Tablet PO ×2 (08:37→19:57)
[2021-07-28] MEDS: ferrous gluconate 324 mg Tablet PO ×2 (08:37→18:27)
[2021-07-28 12:18] LABS: Glucose Point of Care 102 mg/dL (70-110)
--- NOTE | 2021-07-28 12:41 | P.NPUCON_ITS ---
Providers/Reason for Consult Consulting Physican/Specialty*: Bienvenido Heller MD. Psychiatry. Reason for Consult*: Evaluate psychiatric stability. Attending Physician: Douglas Richardson Psych Consult HPI History of Present Illness Ivette Wheeler is a 61 year old female who presented to the emergency department with the following report: Chief Complaint: Shortness of Breath/Dyspnea Stated Complaint: SOB/ AFIB Time Seen by Provider: 07/20/21 15:23 History of Present Illness: HPI Narrative: 61-year-old female presents emergency room with complaint of shortness of breath. Room air O2 sat on arrival is in the 70s. Patient reports 20 pound weight gain in the last 2 weeks. She is 4+ pitting edema to the level of the umbilicus. She is only been using her Lasix as needed took just 1 tablet this morning. She has a known history of atrial fibrillation and is on diltiazem and sotalol for that she has not missed any doses or change her dose slightly. She is tachycardic and has a palpitation sensation along with a shortness of breath. She not having any chest pain at this time. MD elicited complaint: shortness of breath and cough Pertinent past history: congestive heart failure Onset (ago): week(s) (2) Timing: constant Severity: moderate Exacerbating factors: lying flat and exertion Relieving factors: rest and upright position Known history of: congestive heart failure Associated symptoms: Reports chest congestion, dizziness, orthopnea and palpitations; Deny abdominal pain, chest pain, cough, diaphoresis, extremity pain, fever(s), hemoptysis, lightheadedness, myalgias, nausea, paresthesias, polydipsia, polyuria, rash, sense of impending doom, syncope or vomiting Treatment prior to arrival: oxygen. She was admitted to [facility] for definitive treatment of those issues. As they have been decreasing her fluid load and assisting with her swelling they have noted difficulties at night with sleep some significant increase in activity and so psychiatric consult was requested to 4 her sleep challenges to identify if there was a psychiatric component. Patient presents today reporting that she has been doing well in her residential care environment. She reports that her medication has been effective for the most part but we did discuss our agreement with the increase in the Abilify to 10 mg p.o. nightly. She reports that she is supposed to be on CPAP and that there was some issues in obtaining that at home and she needs a additional sleep study to get that back on track. She reports that her sleep has been problematic for a while now and that these behaviors that are seen here are coming back at her place of residence. She is taking a sleep medicine but she was not sure of the name thought maybe trazodone. We discussed the risk benefits and alternatives of increasing the trazodone to 150 mg from the 100 mg she is currently taking and she understood and agreed to proceed as is documented in this note. She denies any significant changes since her last hospitalization. Meds Current Medications: Current Medications Generic Name Dose Route Start Last Admin Trade Name Freq PRN Reason Stop Dose Admin Acetaminophen 650 mg 07/20/21 17:18 07/28/21 03:35 Acetaminophen 32 5 Mg Tablet PO 650 mg Q6H PRN Administration Mild/Mod Pain Or Temp >/= 101 Albuterol/Ipratrop ium 3 ml 07/22/21 15:00 07/28/21 03:48 Ipratropium-Albu terol 3 Ml Neb INHALATION 3 ml Q6H.RESPIRATORY S CH Administration Aripiprazole 10 mg 07/25/21 20:00 07/27/21 21:32 Aripiprazole 10 Mg Tablet PO 10 mg BEDTIME@20 AGNES Administration Bisacodyl 10 mg 07/21/21 11:04 07/23/21 17:11 Bisacodyl 5 Mg T ablet PO 10 mg DAILY PRN Administration Constipation (see protocol) Protocol Budesonide 0.5 mg 07/22/21 18:00 07/27/21 21:13 Budesonide 0.5 M g/2 Ml Neb INHALATION 0.5 mg BID.RESPIRATORY S CH Administration Diltiazem HCl 30 mg 07/21/21 13:00 07/27/21 21:33 Diltiazem 30 Mg Tablet PO 30 mg QID AGNES Administration Famotidine 20 mg 07/27/21 21:00 07/27/21 21:32 Famotidine 20 Mg Tablet PO 20 mg Q12H AGNES Administration Ferrous Gluconate 324 mg 07/20/21 19:43 07/27/21 17:22 Ferrous Gluconat e 324 Mg Tablet PO 324 mg BIDWM AGNES Administration Furosemide 60 mg 07/26/21 18:00 07/27/21 18:52 Furosemide 10 Mg /Ml Sdv 10ml IVP 60 mg BID AGNES Administration Heparin Sodium (Po rcine) 5,000 unit 07/26/21 20:00 07/28/21 03:08 Heparin 5,000 Un it/Ml Inj 1 Ml SUBCUT 5,000 unit Q8H AGNES Administration Insulin Human Lisp ro 0 unit 07/21/21 18:00 07/28/21 01:35 Insulin Lispro 1 00 Unit/1 Ml SUBCUT Not Given WM&BEDTIME [facility] Protocol Lactulose 20 gm 07/25/21 18:15 07/28/21 05:49 Lactulose Oral L iq 20 Gm/30 Ml Udc PO Not Given Q6H [facility] Levothyroxine Sodi um 150 mcg 07/21/21 06:00 07/28/21 05:02 Levothyroxine 15 0 Mcg Tablet PO 150 mcg DAILY@06 AGNES Administration Lorazepam 0.5 mg 07/22/21 13:00 07/27/21 21:35 Lorazepam 0.5 Mg Tablet PO 0.5 mg BID@08,20 PRN Administration ANXIETY Lorazepam 0.5 mg 07/23/21 15:05 07/23/21 15:19 Lorazepam 0.5 Mg Tablet PO 0.5 mg ONCE PRN Administration ANXIETY Sertraline HCl 50 mg 07/21/21 08:00 07/22/21 07:55 Sertraline 50 Mg Tablet PO 50 mg DAILY@08 AGNES Administration Sotalol HCl 80 mg 07/20/21 20:00 07/27/21 21:33 Sotalol 80 Mg Ta blet PO 80 mg BID@08,20 AGNES Administration Tiotropium [place] 18 mcg 07/22/21 08:00 07/27/21 08:56 Tiotropium 18 Mc g Mdi INHALATION 1 puff DAILY.RESPIRATORY AGNES Administration Trazodone HCl 100 mg 07/20/21 20:00 07/27/21 21:33 Trazodone 100 Mg Tablet PO 100 mg BEDTIME@20 AGNES Administration PFSH NPU PFSH: Medical History Acute psychosis ASHD (arteriosclerotic heart disease) Atherosclerosis of coronary artery of [place] heart without angina pectoris Atrial fibrillation Bilateral lower extremity edema Bipolar disorder in partial remission The patient denies history of euphoria, decreased need for sleep, increase in energy, racing thoughts, pressured speech, spending sprees etc. Therefore this diagnosis is removed. Cellulitis CHF (congestive heart failure) Chronic anticoagulation Lucy CAZARES-19 January Dyslipidemia Essential hypertension The patient is on both Paxil 10 mg daily and Zoloft 50 mg daily. We will discontinue the Paxil and make sure she has no withdrawal symptoms. Hx of deep venous thrombosis Major depression in partial remission Mitral valve regurgitation Pulmonary hypertension Subdural hematoma Tricuspid valve regurgitation Type 2 diabetes mellitus Surgical History History of coronary artery bypass graft 2005 History of coronary artery stent placement History of total vaginal hysterectomy History of tubal ligation Status post colonoscopy Family History Other CAD (coronary artery disease) Diabetes Hypertension Social History Smoking and tobacco status: never smoked Alcohol intake: current Alcohol intake frequency: holidays/special occasions only Household members: significant other Marital status: Single Mental Status Exam MSE Comments: This is an obese versus morbidly obese white female in hospital gown with adequate grooming and appropriate eye contact. No abnormal movements. Cooperative with exam in no acute distress. Speech was normal rate and volume. Mood described as good, affect congruent. Thought process organized. Thought content: Patient denied suicidal or homicidal ideation, there are no delusions reported or noted, she denied auditory or visual hallucinations. Attention and concentration appeared intact and memory seems more reliable but none were formally tested. She is alert and oriented x3. Insight and judgment appear fair, impulse control appears fair. Vitals/I&O/Wt Last Vital Signs Temp 97.7 F 07/28/21 03:40 Pulse 100 07/28/21 04:42 Resp 18 07/28/21 03:48 BP 121/85 07/28/21 03:40 Pulse Ox 94 07/28/21 03:48 07/27/21 07/27/21 07/28/21 14:59 22:59 06:59 Intake Total 472 / 472 236 / 708 200 / 908 Output Total 1500 / 1500 2050 / 3550 Balance -1028 / -1028 236 / -792 -1850 / -2642 Weight last 48 hrs Weight 95.028 kg Weight 95.708 kg Physical Exam Urinary Catheter Management^: Cox: Cath Placed During This Visit: yes Reason for Continuing Indwelling Catheter: Accurate Measurement of Urinary Output in Critically Ill Patients Urinary Catheter Date of Insertion: 07/21/21 Urinary Catheter Time of Insertion: 12:00 A&P Assessment and plan (1) Sundowning: Status: Acute (2) Hypomagnesemia: Status: Acute (3) PHILIPP (obstructive sleep apnea): Status: Acute (4) Acute on chronic respiratory failure with hypoxia and hypercapnia: Status: Acute (5) Bilateral lower extremity edema: Status: Acute (6) S/P evacuation of subdural hematoma: Status: Acute (7) Type 2 diabetes mellitus: Status: Acute (8) CHF (congestive heart failure): Status: Acute (9) Pulmonary hypertension: Status: Acute (10) Essential hypertension: Status: Acute (11) Cellulitis: Status: Acute Qualifiers: Site of cellulitis: extremity Site of cellulitis of extremity: lower extremity Laterality: unspecified laterality Qualified Code(s): L03.119 - Cellulitis of unspecified part of limb (12) Atrial fibrillation: Status: Acute Qualifiers: Atrial fibrillation type: longstanding persistent Qualified Code(s): I48.11 - Longstanding persistent atrial fibrillation (13) Extrapyramidal and movement disorder: Status: Acute Additional A&P Information Ivette Wheeler is a 61 carlitos old female who was being transferred to the neuropsychiatric unit from the medical unit after being transferred back from an outside hospital for repair of her subdural hematoma having previously been on the unit.The main focus of her admission to the neuropsychiatric unit will be to provide support as we are seeking guardianship and assisting with placement options. RECOMMENDATION AND PLAN: 1. Continue current medication. Agree with increase in Abilify and will increase trazodone to 150 mg p.o. nightly 2. Compared to the functioning she had it past hospitalizations she continues to function well psychiatrically and should be fine returning to her current arrangement as long as there is clear directives as to what she needs to do for her to follow through with recommendations. 3. We will continue to follow. Involuntary Hold Information 96 Hour Hold: 96 Hour Involuntary Admission: No Attestations NPU Medical Necessity Statement*: N/A. Please see primary team note for medical necessity however no need for acute/inpatient psychiatric services noted. Coding Level of Care Code Acute Receptionist Scheduler for [facility] Fwd Diagnoses Sundowning F05 Hypomagnesemia E83.42 PHILIPP (obstructive sleep apnea) G47.33 Acute on chronic respiratory failure with hypoxia and hypercapnia J96.21; J96.22 Bilateral lower extremity edema R60.0 S/P evacuation of subdural hematoma Z98.890; Z86.79 Type 2 diabetes mellitus E11.9 CHF (congestive heart failure) I50.9 Pulmonary hypertension I27.20 Essential hypertension I10 Cellulitis L03.119 Site of cellulitis: extremity Site of cellulitis of extremity: lower extremity Laterality: unspecified laterality Atrial fibrillation I48.11 Atrial fibrillation type: longstanding persistent Extrapyramidal and movement disorder G25.9
[2021-07-28 16:52] LABS: Glucose Point of Care 125 mg/dL (70-110)
--- NOTE | 2021-07-28 18:50 | P.PN_ITS ---
Subjective Subjective: Interval history: Again restless at night as per nursing report. Otherwise reports she is doing well and has done well during days. Discussed with her that psychiatry will be adjusting her medications additionally to try to see if restlessness can be controlled somewhat, as it appears it was an issue for her to also work with CPAP when it was tried here. She otherwise denies chest pain or pressure. She tolerated ambulating in the hallway well today. Edema of lower extremities is decreasing. Vitals/I&O/Wt Last Vital Signs Temp 97.2 F L 07/28/21 12:15 Pulse 92 07/28/21 18:28 Resp 26 H 07/28/21 18:28 BP 118/79 07/28/21 18:28 Pulse Ox 92 07/28/21 18:28 07/28/21 07/28/21 07/28/21 06:59 14:59 22:59 Intake Total 200 / 908 480 / 480 240 / 720 Output Total 2050 / 3550 Balance -1850 / -2642 480 / 480 240 / 720 Weight last 48 hrs Weight 95.028 kg Weight 95.708 kg Physical Exam Narrative: EXAM NARRATIVE: Just ambulated in the hallway. Sitting up in chair, comfortable, pleasant, cooperative. Const: COMMON NORMALS: no acute distress, patient oriented x3 (Knows she is in the hospital and states the year correctly.) and alert ORIENTATION/CONSCIOUSNESS: Yes awake HENMT: COMMON NORMALS: oropharynx normal Neck/C-Spine: COMMON NORMALS: no JVD Resp: COMMON NORMALS: normal respiratory effort and clear to auscultation bilaterally AUSCULTATION: clear to auscultation bilaterally Cardio: COMMON NORMALS: no JVD, regular rhythm, S1 normal heart sound present, S2 normal heart sound present and No murmurs present (Cardio) RHYTHM: regular rhythm HEART SOUNDS: S1 normal heart sound present and S2 normal heart sound present GI: COMMON NORMALS: Normal to inspection, nondistended, normoactive bowel sounds present, Soft to palpation and non-tender PALPATION: Yes Soft to palpation Extremity: COMMON NORMALS: no joint enlargement GENERAL: Yes edema (2+ LE edema. Resolving edema thighs.) Neuro: COMMON NORMALS: patient oriented x3 (Knows she is in the hospital and states the year correctly.) and moves all extremities SENSORIUM/ORIENTATION: Yes alert Skin: COMMON NORMALS: no rashes or lesions noted GENERAL SKIN EXAM: no rashes or lesions noted OTHER: Chronic stasis dermatitis bilaterally Urinary Catheter Management^: Cox: Cath Placed During This Visit: yes Reason for Continuing Indwelling Catheter: Accurate Measurement of Urinary Output in Critically Ill Patients Urinary Catheter Date of Insertion: 07/21/21 Urinary Catheter Time of Insertion: 12:00 Data : 07/28/21 04:42 07/28/21 04:42 A&P Assessment and plan (1) Sundowning: Appreciate psychiatry consultation. They will be adjusting medication to help reduce restlessness at night. Certainly sleep apnea not helping, but she was also not able to keep with an IV when it was tried here previously. Sounds like cough is also bothersome to her especially in the evening/night. We will add antitussive. Continue aripiprazole 10 mg. Nightly episodes of sundowning, restlessness, nonadherence with BiPAP. These episodes would put her in potentially unsafe situation at home at assisted living where she lives by herself. Increased aripiprazole dose to 10 mg nightly. Continue trazodone. Ativan as needed. One-to-one sitter. May need long-term correction placement. Status: Acute (2) CHF (congestive heart failure): Continue IV Lasix 60 mg twice daily. Weight has been decreasing. Edema of thighs now resolving. If continues to improve, tomorrow may switch to oral Lasix, and if tolerating well, and if episodes of restlessness/sundowning improve and can safely return to correction, would anticipate possible discharge back within 1-2 days. Per CM documentation would be okay to return with O2 if needed. Likely has had weight loss recently as he points out she was not eating after her COVID-19 illness. With ascites. montior kidney function Status: Acute (3) Acute on chronic respiratory failure with hypoxia and hypercapnia: Continue diuresis as above. She is also found to require 1 L of oxygen with exertion due to desaturation down to 83% with ambulation. Continue diuresis. Case management also to find out whether she can have oxygen at correction as it is not given. Sleep study after discharge. Mild ammonia abnormality, 62, some cirrhotic-like appearance of the liver on imaging, although cirrhosis not supported by laboratory studies. Significance of ammonia is not entirely clear. Given episodes of sundowning/confusion will add lactulose. Status: Acute (4) Pulmonary hypertension: Status: Acute (5) Atrial fibrillation: With some improvement. Cardizem 30 mg p.o. every 6. Sotalol 80 mg twice daily. A fib with RVR, now rate controlled Status: Acute Qualifiers: Atrial fibrillation type: longstanding persistent Qualified Code(s): I48.11 - Longstanding persistent atrial fibrillation (6) Bilateral lower extremity edema: Status: Acute (7) Essential hypertension: Status: Acute (8) Type 2 diabetes mellitus: Status: Acute (9) S/P evacuation of subdural hematoma: Status: Acute (10) Hypomagnesemia: Replaced. Recheck. Status: Acute Additional A&P Information Hypokalemia: Replaced Type 2 diabetes mellitus: A1c 6.1. Carb consistent diet. Insulin sliding scale at low-dose protocol. Possible liver cirrhosis: LFTs without abnormality. No thrombocytopenia, normal sodium. Mild elevation of ammonia, but today she is awake and alert, oriented x3. Significance unclear. Also with normal INR and normal albumin. Doubt current cirrhosis, but would benefit from continued outpatient follow-up and monitoring. Hypertension: at goal. Full code. Cardiac carb consistent diet. Heparin for DVT prophylaxis Famotidine for PUD prophylaxis. Attestations Medical Necessity Statement*: Continue optimization of medications given restlessness at night with adjustment by psychiatry, continue diuresis for anasarca with acute CHF. Disposition planning and arrangements. Coding Level of Care Code Acute Plate Roller for [facility] Fwd Diagnoses Sundowning F05 CHF (congestive heart failure) I50.9 Acute on chronic respiratory failure with hypoxia and hypercapnia J96.21; J96.22 Pulmonary hypertension I27.20 Atrial fibrillation I48.11 Atrial fibrillation type: longstanding persistent Bilateral lower extremity edema R60.0 Essential hypertension I10 Type 2 diabetes mellitus E11.9 S/P evacuation of subdural hematoma Z98.890; Z86.79 Hypomagnesemia E83.42
[2021-07-28] MEDS: LORazepam 0.5 mg Tablet PO (19:56)
[2021-07-28] MEDS: ARIPiprazole 10 mg Tablet PO (19:56)
[2021-07-28] MEDS: benzonatate 100 mg Capsule PO (19:57)
[2021-07-28] MEDS: trazodone 100 mg Tablet PO (19:57)
[2021-07-28] MEDS: insulin lispro 100 unit/1 mL SUBCUT (19:58)
[2021-07-28 20:30] LABS: Glucose Point of Care 141 mg/dL (70-110)
[2021-07-29] VITALS (18 sets, daily range): BP systolic 94–114; BP diastolic 65–77; PULSE 65–104; RESP 17–24; TEMP 36.4–36.6; O2SAT 92–100; BMI 35.9
[2021-07-29] MEDS: ipratropium-albuterol 3 mL Neb INHALATION ×3 (03:06→21:45)
[2021-07-29 04:10] LABS: Basophils % 0.6 %; Eosinophils # 0.2 10^3/uL (0.0-0.8); Eosinophils % 3.2 %; Hematocrit 39.3 % (37.0-47.0); Hemoglobin 11.8 g/dL (11.5-15.3); Lymphocytes # 1.6 10^3/uL (0.8-4.8); Lymphocytes % 25.5 %; Mean Corpuscular Hemoglobin 25.9 pg (28.0-34.0); Mean Corpuscular Volume 86.4 fl (81-99); Mean Platelet Volume 10.6 fL (7.4-10.4); Monocytes # 0.7 10^3/uL (0.2-0.9); Monocytes % 10.8 %; Neutrophils # 3.69 10^3/uL (1.8-7.7); Neutrophils % 59.7 %; Nucleated Red Blood Cells % 0 %; Platelet Count 185 10^3/cmm (130-400); Red Blood Count 4.55 10^6/uL (4.1-5.3); Red Cell Distribution Width 15.3 % (12.1-15.1); White Blood Count 6.2 10^3/uL (4.0-10.0)
[2021-07-29 04:32] LABS: Anion Gap 11.5 (5-19); Blood Urea Nitrogen 10 mg/dL (8-23); Calcium 8.4 mg/dL (8.5-10.5); Carbon Dioxide 40 mmol/L (22-29); Chloride 94 mmol/L (98-107); Glomerular Filtration Rate 101.3 mL/min (90-130); Glucose 80 mg/dL (65-115); Osmolality Calculated 292 mOsm/kg (285-295); Potassium 3.5 mmol/L (3.5-5.1); Sodium 142 mmol/L (136-145)
[2021-07-29] MEDS: levothyroxine 150 mcg Tablet PO (05:15)
[2021-07-29] MEDS: heparin 5,000 unit/mL INJ 1 mL 5000 UNIT SUBCUT ×3 (05:15→20:04)
[2021-07-29 07:02] LABS: Glucose Point of Care 92 mg/dL (70-110)
[2021-07-29] MEDS: budesonide 0.5 mg/2 mL Neb INHALATION ×2 (07:47→21:45)
[2021-07-29] MEDS: ferrous gluconate 324 mg Tablet PO ×2 (08:18→18:35)
[2021-07-29] MEDS: benzonatate 100 mg Capsule PO ×2 (08:18→20:04)
[2021-07-29] MEDS: dilTIAZem 30 mg Tablet PO ×4 (08:18→20:04)
[2021-07-29] MEDS: famotidine 20 mg Tablet PO ×2 (08:18→20:04)
[2021-07-29] MEDS: FUROsemide 10 mg/mL SDV 10mL 60 MG IVP ×2 (08:26→18:35)
[2021-07-29] MEDS: sotalol 80 mg Tablet PO ×2 (08:26→20:04)
[2021-07-29] MEDS: LORazepam 0.5 mg Tablet PO (08:36)
[2021-07-29 12:07] LABS: Glucose Point of Care 101 mg/dL (70-110)
--- NOTE | 2021-07-29 12:11 | W.PM.NPUPNS ---
Subjective NPU Subjective: Interval history: Patient presents today with no significant changes. We discussed the increase in the trazodone which she should get her first dose tonight and she understood and agreed to proceed as is documented in this note. She continues to benefit from the medical intervention on her fluid load. We agreed to see how she does tonight. Mental Status Exam MSE Comments: This is an obese versus morbidly obese white female in hospital gown with adequate grooming and appropriate eye contact. No abnormal movements. Cooperative with exam in no acute distress. Speech was normal rate and volume. Mood described as good, affect congruent. Thought process organized. Thought content: Patient denied suicidal or homicidal ideation, there are no delusions reported or noted, she denied auditory or visual hallucinations. Attention and concentration appeared intact and memory seems more reliable but none were formally tested. She is alert and oriented x3. Insight and judgment appear fair, impulse control appears fair. Vitals/I&O/Wt Last Vital Signs Temp 97.2 F L 07/28/21 12:15 Pulse 84 07/29/21 04:59 Resp 19 H 07/29/21 03:08 BP 97/69 07/29/21 04:43 Pulse Ox 95 07/29/21 03:08 07/28/21 07/29/21 07/29/21 22:59 06:59 14:59 Intake Total 480 / 960 240 / 1200 Output Total 1850 / 1850 4700 / 6550 Balance -1370 / -890 -4460 / -5350 Weight last 48 hrs Weight 95.028 kg Weight 95.028 kg Physical Exam Urinary Catheter Management^: Cox: Cath Placed During This Visit: yes Reason for Continuing Indwelling Catheter: Accurate Measurement of Urinary Output in Critically Ill Patients Urinary Catheter Date of Insertion: 07/21/21 Urinary Catheter Time of Insertion: 12:00 Data NPU : 07/29/21 03:33 07/29/21 03:33 A&P Additional A&P Information (1) Sundowning: (2) Hypomagnesemia: (3) PHILIPP (obstructive sleep apnea): (4) Acute on chronic respiratory failure with hypoxia and hypercapnia: (5) Bilateral lower extremity edema: (6) S/P evacuation of subdural hematoma: (7) Type 2 diabetes mellitus: (8) CHF (congestive heart failure): (9) Pulmonary hypertension: (10) Essential hypertension: (11) Cellulitis: (12) Atrial fibrillation: (13) Extrapyramidal and movement disorder: Additional A&P Information Ivette Wheeler is a 61-year-old female who is known from visits to the psychiatric unit and treatment after going to an outside hospital for a subdural hematoma that was noted while on the unit who was assisted in obtaining guardianship and placement outside of the home who presented recently due to fluid overload who has recently been struggling with sleep and increased activity at night. RECOMMENDATION AND PLAN: 1. Continue current medication. Agree with increase in Abilify and will evaluate the increase trazodone to 150 mg p.o. nightly 2. Compared to the functioning she had it past hospitalizations she continues to function well psychiatrically and should be fine returning to her current arrangement as long as there is clear directives as to what she needs to do for her to follow through with recommendations. 3. We will continue to follow. Involuntary Hold Information 96 Hour Hold: 96 Hour Involuntary Admission: No Attestations NPU Medical Necessity Statement*: N/A. Please see primary team note for medical necessity however no need for acute/inpatient psychiatric services noted. Coding Level of Care Code Acute Compensator Worker for Jimmie Arias
[2021-07-29 17:31] LABS: Glucose Point of Care 99 mg/dL (70-110)
[2021-07-29] MEDS: trazodone 150 mg Tablet PO (20:04)
[2021-07-29] MEDS: ARIPiprazole 10 mg Tablet PO (20:04)
--- NOTE | 2021-07-29 20:25 | PC.NURSE ---
Shift Note Frequent safety and comfort rounds continue. Orders and/or nursing care completed as indicated. Patient monitored for response to intervention and treatment(s). Education provided includes up ad stalin and ambulating w/PT, IV Lasix for diureses. Patient and/or event marketing representative verbalizes understanding. Will continue to monitor.
[2021-07-29 21:07] LABS: Glucose Point of Care 106 mg/dL (70-110)
--- NOTE | 2021-07-29 21:51 | PM.PN ---
Subjective Subjective: Interval history: Again restless night. During the day she is doing better. Feels much better compared to admission. Edema is significantly decreasing. Vitals/I&O/Wt Last Vital Signs Temp 98 F 07/29/21 19:45 Pulse 75 07/29/21 21:45 Resp 20 H 07/29/21 21:45 BP 105/73 07/29/21 19:45 Pulse Ox 92 07/29/21 21:45 07/29/21 07/29/21 07/29/21 06:59 14:59 22:59 Intake Total 240 / 1200 954 / 954 354 / 1308 Output Total 4700 / 6550 1100 / 1100 300 / 1400 Balance -4460 / -5350 -146 / -146 54 / -92 Weight last 48 hrs Weight 95.028 kg Weight 95.028 kg Physical Exam Narrative: EXAM NARRATIVE: Just ambulated in the hallway. Sitting up in chair, comfortable, pleasant, cooperative. Const: COMMON NORMALS: no acute distress, patient oriented x3 (Knows she is in the hospital and states the year correctly.) and alert ORIENTATION/CONSCIOUSNESS: Yes awake HENMT: COMMON NORMALS: oropharynx normal Neck/C-Spine: COMMON NORMALS: no JVD Resp: COMMON NORMALS: normal respiratory effort and clear to auscultation bilaterally AUSCULTATION: clear to auscultation bilaterally Cardio: COMMON NORMALS: no JVD, regular rhythm, S1 normal heart sound present, S2 normal heart sound present and No murmurs present (Cardio) RHYTHM: regular rhythm HEART SOUNDS: S1 normal heart sound present and S2 normal heart sound present GI: COMMON NORMALS: Normal to inspection, nondistended, normoactive bowel sounds present, Soft to palpation and non-tender PALPATION: Yes Soft to palpation Extremity: COMMON NORMALS: no joint enlargement GENERAL: Yes edema (2+ LE edema. Only trace edema lower thighs.) Neuro: COMMON NORMALS: patient oriented x3 (Knows she is in the hospital and states the year correctly.) and moves all extremities SENSORIUM/ORIENTATION: Yes alert Skin: COMMON NORMALS: no rashes or lesions noted GENERAL SKIN EXAM: no rashes or lesions noted OTHER: Chronic stasis dermatitis bilaterally Urinary Catheter Management^: Cox: Cath Placed During This Visit: yes Reason for Continuing Indwelling Catheter: Accurate Measurement of Urinary Output in Critically Ill Patients Urinary Catheter Date of Insertion: 07/21/21 Urinary Catheter Time of Insertion: 12:00 Data : 07/29/21 03:33 07/29/21 03:33 A&P Assessment and plan (1) Sundowning: Again restless night, discussed with psychiatry, today they adjusted medication with trazodone up to 150 mg at bedtime. Appreciate psychiatry consultation. Because of complaints that cough is also bothersome to her especially in the evening/night. Added antitussive. Continue increased dose aripiprazole 10 mg. Nightly episodes of sundowning, restlessness, nonadherence with BiPAP. These episodes would put her in potentially unsafe situation at home at assisted living where she lives by herself. Increased aripiprazole dose to 10 mg nightly. Continue trazodone. Ativan as needed. One-to-one sitter discontinued. As she is overall doing much better during the day, cough improving, with medication optimization, hopefully should be able to return back to [place]. Status: Acute (2) CHF (congestive heart failure): Anasarca of thighs now appears to be resolving, continue IV Lasix 60 mg twice daily for now while in the hospital due to still present edema, but with overall improvement. Weight appears to be unchanged last few days, but with documented output almost 8 L, unsure that this is accurate. Hopefully nighttime restlessness as above will be resolving so she may return to [place]. Per CM documentation would be okay to return with O2 if needed. Likely has had weight loss recently her guardian points out she was not eating after her COVID-19 illness. With ascites. montior kidney function Status: Acute (3) Acute on chronic respiratory failure with hypoxia and hypercapnia: Continue diuresis as above. She is also found to require 1 L of oxygen with exertion due to desaturation down to 83% with ambulation. Continue diuresis. Case management also to find out whether she can have oxygen at senior care as it is not given. Sleep study after discharge. Mild ammonia abnormality, 62, some cirrhotic-like appearance of the liver on imaging, although cirrhosis not supported by laboratory studies. Significance of ammonia is not entirely clear. Given episodes of sundowning/confusion will add lactulose. Status: Acute (4) Pulmonary hypertension: Status: Acute (5) Atrial fibrillation: Cardizem 30 mg p.o. every 6. Sotalol 80 mg twice daily. A fib with RVR, now rate controlled Status: Acute Qualifiers: Atrial fibrillation type: longstanding persistent Qualified Code(s): I48.11 - Longstanding persistent atrial fibrillation (6) Bilateral lower extremity edema: Status: Acute (7) Essential hypertension: Status: Acute (8) Type 2 diabetes mellitus: Status: Acute (9) S/P evacuation of subdural hematoma: Status: Acute (10) Hypomagnesemia: Replaced. Recheck. Status: Acute Additional A&P Information Hypokalemia: Replaced Type 2 diabetes mellitus: A1c 6.1. Carb consistent diet. Insulin sliding scale at low-dose protocol. Possible liver cirrhosis: LFTs without abnormality. No thrombocytopenia, normal sodium. Mild elevation of ammonia, but today she is awake and alert, oriented x3. Significance unclear. Also with normal INR and normal albumin. Doubt current cirrhosis, but would benefit from continued outpatient follow-up and monitoring. Hypertension: at goal. Full code. Cardiac carb consistent diet. Heparin for DVT prophylaxis Famotidine for PUD prophylaxis. Attestations Medical Necessity Statement*: Continue admission for optimization of psychiatric medications due to episodes of restlessness at night, continue diuresis due to acute CHF with anasarca, disposition planning, with return to [facility] if able. Coding Level of Care Code Acute First Officer for g Fwd Diagnoses F05 CHF (congestive heart failure) I50.9 Acute on chronic respiratory failure with hypoxia and hypercapnia J96.21; J96.22 Pulmonary hypertension I27.20 Atrial fibrillation I48.11 Atrial fibrillation type: longstanding persistent Bilateral lower extremity edema R60.0 Essential hypertension I10 Type 2 diabetes mellitus E11.9 S/P evacuation of subdural hematoma Z98.890; Z86.79 Hypomagnesemia E83.42
[2021-07-30] VITALS (10 sets, daily range): BP systolic 97–104; BP diastolic 68; PULSE 76–93; RESP 18–22; O2SAT 86–97
[2021-07-30] MEDS: heparin 5,000 unit/mL INJ 1 mL 5000 UNIT SUBCUT (03:13)
[2021-07-30] MEDS: ipratropium-albuterol 3 mL Neb INHALATION ×2 (03:16→08:48)
[2021-07-30] MEDS: acetaminophen 325 mg Tablet 650 MG PO (03:41)
--- NOTE | 2021-07-30 03:42 | PC.NURSE ---
Patient has been assisted back and forth from bed to chair multiple times throughout the night.
[2021-07-30] MEDS: levothyroxine 150 mcg Tablet PO (05:12)
--- NOTE | 2021-07-30 06:00 | PC.NURSE ---
Shift Note Frequent safety and comfort rounds continue. Orders and/or nursing care completed as indicated. Patient monitored for response to intervention and treatment(s). Will continue to monitor.
[2021-07-30 06:29] LABS: Glucose Point of Care 77 mg/dL (70-110)
[2021-07-30] MEDS: ferrous gluconate 324 mg Tablet PO (08:04)
[2021-07-30] MEDS: dilTIAZem 30 mg Tablet PO (08:05)
[2021-07-30] MEDS: sotalol 80 mg Tablet PO (08:05)
[2021-07-30] MEDS: famotidine 20 mg Tablet PO (08:05)
[2021-07-30] MEDS: benzonatate 100 mg Capsule PO (08:05)
[2021-07-30] MEDS: FUROsemide 10 mg/mL SDV 10mL 60 MG IVP (08:05)
[2021-07-30] MEDS: budesonide 0.5 mg/2 mL Neb INHALATION (08:48)
[2021-07-30 09:06] LABS: Basophils # 0.1 10^3/uL (0.0-0.1); Basophils % 0.8 %; Eosinophils # 0.2 10^3/uL (0.0-0.8); Eosinophils % 3.2 %; Hemoglobin 11.7 g/dL (11.5-15.3); Lymphocytes # 1.4 10^3/uL (0.8-4.8); Lymphocytes % 22.6 %; Mean Corpuscular Hemoglobin 26.2 pg (28.0-34.0); Mean Corpuscular Volume 87.4 fl (81-99); Mean Platelet Volume 10.7 fL (7.4-10.4); Monocytes # 0.8 10^3/uL (0.2-0.9); Neutrophils # 3.81 10^3/uL (1.8-7.7); Neutrophils % 61.1 %; Nucleated Red Blood Cells % 0 %; Platelet Count 192 10^3/cmm (130-400); Red Blood Count 4.46 10^6/uL (4.1-5.3); Red Cell Distribution Width 15.4 % (12.1-15.1); White Blood Count 6.2 10^3/uL (4.0-10.0)
[2021-07-30 09:20] LABS: Blood Urea Nitrogen 11 mg/dL (8-23); Calcium 9.6 mg/dL (8.5-10.5); Carbon Dioxide 34 mmol/L (22-29); Chloride 93 mmol/L (98-107); Glomerular Filtration Rate 101.3 mL/min (90-130); Glucose 80 mg/dL (65-115); Osmolality Calculated 288 mOsm/kg (285-295); Sodium 140 mmol/L (136-145)
[2021-07-30 09:24] LABS: Anion Gap 16.9 (5-19); Potassium 3.9 mmol/L (3.5-5.1)
--- NOTE | 2021-07-30 11:13 | P.DS_ITS ---
Discharge Providers Date of Admission: 07/20/21 17:18 Date of Discharge: July 30, 2021 Attending Provider at Admission: Elieser Tellez MD Attending Provider at Discharge: Elieser Tellez MD Diagnoses at Discharge Discharge Diagnosis (1) CHF (congestive heart failure): Status: Acute (2) Acute on chronic respiratory failure with hypoxia and hypercapnia: Status: Acute (3) Pulmonary hypertension: Status: Acute (4) Atrial fibrillation: Status: Acute Qualifiers: Atrial fibrillation type: longstanding persistent Qualified Code(s): I48.11 - Longstanding persistent atrial fibrillation (5) Bilateral lower extremity edema: Status: Acute (6) Essential hypertension: Status: Acute (7) Type 2 diabetes mellitus: Status: Acute (8) S/P evacuation of subdural hematoma: Status: Acute (9) Hypomagnesemia: Status: Acute (10) Sundowning: Status: Acute (11) Right-sided heart failure: Status: Acute Reason for Visit Reason for Visit: SOB/ AFIB Hospital Course Hospital Course Ivette Wheeler is a 61 year old female with PMH history of bipolar disorder, psychosis , coronary artery disease status post stent, CABG, HFrEF, A. fib htn,dvt, e left frontal and frontoparietal subdural hematoma secondary to fall s/p yosvany hole surgery p/w complaints of shortness of breath and 20 pound weight gain with increasing anasarca. Upon arrival in the ER noted to have A fib with RVR for which she has been started on a cardizem infusion. She was admitted to the hospital for further management of congestive heart failure, atrial fibrillation with rapid ventricular response. She was treated with BiPAP ventilation and IV diuresis. Cardizem was switched over to oral and she remained rate controlled. She was aggressively diuresed and is net 15 L negative till day of discharge. Her lower limb swelling has started resolving as well. CT chest was done on admission which showed signs of right-sided heart failure. Patient most likely has undiagnosed obstructive sleep apnea. During hospitalization she was on and off consistent with BiPAP ventilation. Her hospitalization was complicated by her developing delirium on coming down on her psych medications. Psychiatry was consulted and her multiple psychiatric medications were adjusted. Patient has been on and off compliant with BiPAP Currently. Home oxygen evaluation has been done prior to discharge. She has been working appropriately with physical therapy. She has been discharged in hemodynamically stable condition on oral Cardizem, sotalol. She is on Lasix 60 mg twice daily. She should have BMP done within a week for further evaluation of potassium. Patient should have a sleep study as an outpatient for possible BiPAP. 1 dose of IV Flye has been increased to 10 mg daily and Ativan has been changed to as needed basis. Physical Exam Narrative: EXAM NARRATIVE: General: No acute distress, AO x3 HEENT: PERRLA, pupils bilaterally equal and reactive Chest: Normal vesicular breath sounds, no added sounds, equal good air entry bilaterally CVS: S1-S2 irregularly irregular, soft pansystolic murmur at fourth intercostal space, 2/6, pansystolic murmur at apex radiating to anterior axillary line, tachycardia, no gallops, no rubs Abdomen: Soft, nontender, no organomegaly, bowel sounds present Neuro: No focal deficits, no facial deformity, AO x3, power 5/5 in all limbs Extremities: Bilateral lower limb swelling 1+ pitting edema present to knees Urinary Catheter Management^: Cox: Cath Placed During This Visit: yes Reason for Continuing Indwelling Catheter: Accurate Measurement of Urinary Output in Critically Ill Patients Urinary Catheter Date of Insertion: 07/21/21 Urinary Catheter Time of Insertion: 12:00 Discharge Data Data Completed and Pending: Completed Studies During Hospitalization Category Date Time Status CT angio chest PE protcl [id number] Rout ine Cat Scan 07/20/21 19:48 Completed XR chest 1V [place] ble [id number] Stat Exams 07/20/21 15:36 Completed Pending at discharge Category Date Time Status ABG FULL [Arteria l Blood Gas Full] Stat Lab 07/22/21 09:30 Received ABG FULL [Arteria l Blood Gas Full] Stat Lab 07/22/21 14:08 Received Basic Metabolic P elaine AM LABS Lab 07/31/21 04:00 Ordered Basic Metabolic P elaine AM LABS Lab 08/01/21 04:00 Ordered Complete Blood Co unt w/Auto AM LABS Lab 07/31/21 04:00 Ordered Complete Blood Co unt w/Auto AM LABS Lab 08/01/21 04:00 Ordered Labs from last 24 hours 07/30/21 07/30/21 07/30/21 08:18 08:18 06:12 WBC 6.2 RBC 4.46 Hgb 11.7 Hct 39.0 MCV 87.4 MCH 26.2 L MCHC 30.0 RDW 15.4 H Plt Count 192 MPV 10.7 H Neut % (Auto) 61.1 Lymph % (Auto) 22.6 Garfield % (Auto) 12.0 Eos % (Auto) 3.2 Baso % (Auto) 0.8 Neut # (Auto) 3.81 Lymph # (Auto) 1.4 Garfield # (Auto) 0.8 Eos # (Auto) 0.2 Baso # (Auto) 0.1 Nucleated RBC % (a uto) 0 Nucleated RBCs # 0.0 Sodium 140 Potassium 3.9 Chloride 93 L Carbon Dioxide 34 H Anion Gap 16.9 BUN 11 Creatinine 0.6 GFR Calculation 101.3 Glucose 80 POC Glucose 77 Calculated Osmolal ity 288 Calcium 9.6 07/29/21 07/29/21 07/29/21 19:49 17:02 11:53 WBC RBC Hgb Hct MCV MCH MCHC RDW Plt Count MPV Neut % (Auto) Lymph % (Auto) Garfield % (Auto) Eos % (Auto) Baso % (Auto) Neut # (Auto) Lymph # (Auto) Garfield # (Auto) Eos # (Auto) Baso # (Auto) Nucleated RBC % (a uto) Nucleated RBCs # Sodium Potassium Chloride Carbon Dioxide Anion Gap BUN Creatinine GFR Calculation Glucose POC Glucose 106 99 101 Calculated Osmolal ity Calcium Addt'l Data from Hospital Stay: Radiology Impressions Chest X-Ray 07/20/21 15:36 IMPRESSION: 1. Suspected small volume pleural effusions. 2. Ill-defined opacities at the lung bases, potentially atelectasis given suspected pleural effusions. 3. Mild cardiomegaly and central pulmonary vascular congestion. Chest CTA 07/20/21 19:48 IMPRESSION: 1. There is no pulmonary embolus. 2. Diffuse mild ground-glass opacity and more dense right bibasilar consolidation is present, consistent with edema, or pneumonia. There is a right pleural effusion. 3. There is a moderate to large volume of ascites new since the prior exam. Cirrhotic liver morphology is noted. 4. There is contrast in the inferior vena cava and reflux into the hepatic veins compatible with right heart failure. Laboratory Results WBC 6.2 10^3/uL (4.0- 10.0) 07/30/21 08:18 Corrected WBC Cancelled 07/20/21 15:50 RBC 4.46 10^6/uL (4.1 -5.3) 07/30/21 08:18 Hgb 11.7 g/dL (11.5-1 5.3) 07/30/21 08:18 Hct 39.0 % (37.0-47.0 ) 07/30/21 08:18 MCV 87.4 fl (81-99) 07/30/21 08:18 MCH 26.2 pg (28.0-34. 0) L 07/30/21 08:18 MCHC 30.0 g/dL (30.0-3 6.0) 07/30/21 08:18 RDW 15.4 % (12.1-15.1 ) H 07/30/21 08:18 Plt Count 192 10^3/cmm (130 -400) 07/30/21 08:18 MPV 10.7 fL (7.4-10.4 ) H 07/30/21 08:18 Gran % Cancelled 07/20/21 15:50 Neut % (Auto) 61.1 % 07/30/21 08:18 Lymph % (Auto) 22.6 % 07/30/21 08:18 Garfield % (Auto) 12.0 % 07/30/21 08:18 Eos % (Auto) 3.2 % 07/30/21 08:18 Baso % (Auto) 0.8 % 07/30/21 08:18 Neut # (Auto) 3.81 10^3/uL (1.8 -7.7) 07/30/21 08:18 Lymph # (Auto) 1.4 10^3/uL (0.8- 4.8) 07/30/21 08:18 Garfield # (Auto) 0.8 10^3/uL (0.2- 0.9) 07/30/21 08:18 Eos # (Auto) 0.2 10^3/uL (0.0- 0.8) 07/30/21 08:18 Baso # (Auto) 0.1 10^3/uL (0.0- 0.1) 07/30/21 08:18 Absolute Gran (aut o) Cancelled 07/20/21 15:50 Nucleated RBC % (a uto) 0 % 07/30/21 08:18 Total Counted 100 (0-100) 07/26/21 03:43 Atypical Lymphs % 2.0 % (0-5) 07/26/21 03:43 Absolute Neutrophi ls 2.7 10^3/cmm (1.4 -6.5) 07/26/21 03:43 Segmented Neutroph ils 58 % 07/26/21 03:43 Abs Segm Neuts (Ma n) 2.5 10/cmm (1.6-7 .1) 07/26/21 03:43 Band Neutrophils 4.0 % 07/26/21 03:43 Abs Band Neuts (Ma n) 0.2 10^3/cmm (0.0 -1.2) 07/26/21 03:43 Absolute Lymphocyt es 0.9 10^3/cmm (1.2 -3.4) L 07/26/21 03:43 Lymphocytes (Manua l) 20 % 07/26/21 03:43 Monocytes (Manual) 9.0 % 07/26/21 03:43 Absolute Monocytes 0.4 10^3/cmm (0.1 -0.6) 07/26/21 03:43 Eosinophils (Manua l) 5 % 07/26/21 03:43 Absolute Eosinophi ls 0.2 10^3/cmm (0.0 -0.7) 07/26/21 03:43 Basophils (Manual) 1.0 % 07/26/21 03:43 Absolute Basophils 0.0 10^3/cmm (0.0 -0.2) 07/26/21 03:43 Metamyelocytes 1.0 % 07/26/21 03:43 Nucleated RBCs # 0.0 /100WBC 07/30/21 08:18 Platelet Estimate Normal (Normal) 07/26/21 03:43 Hypochromasia 1+ H 07/26/21 03:43 Poikilocytosis Trace 07/26/21 03:43 PT 15.00 SECONDS (12 .1-14.9) H 07/24/21 02:15 INR 1.15 (0.8-1.2) 07/24/21 02:15 D-Dimer 3.61 ug/mIFEU (0- 0.59) H 07/20/21 17:18 Specimen Type Arterial 07/20/21 15:40 Sample Site Brachial, right 07/20/21 15:40 ABG pH 7.42 (7.35-7.45) 07/20/21 15:40 ABG pCO2 45.8 mmHg (35-45) H 07/20/21 15:40 ABG pO2 44.3 mmHg (80.0-1 00.0) L 07/20/21 15:40 ABG HCO3 29.9 mmol/L (22-2 6) H 07/20/21 15:40 ABG O2 Saturation 81.2 07/20/21 15:40 ABG Base Excess 4.6 mmol/L (-2.0- 2.0) H 07/20/21 15:40 Chin Test N/a 07/20/21 15:40 A-a O2 Gradient 6.2 mmHg (5-10) 07/20/21 15:40 Hematocrit 40.5 % (37-47) 07/20/21 15:40 Hgb O2 Saturation 79.3 % (95-100) L 07/20/21 15:40 Carboxyhemoglobin 1.5 %THgb (0.4-20 .1) 07/20/21 15:40 Methemoglobin 0.8 % (0.4-1.5) 07/20/21 15:40 Total Hemoglobin 13.2 g/dL (12-16) 07/20/21 15:40 Sodium 140.0 mmol/L (131 -143) 07/20/21 15:40 Potassium 4.2 mmol/L (3.5-5 .0) 07/20/21 15:40 Glucose 105.0 mg/dL (70-1 15) 07/20/21 15:40 Ionized Calcium 1.2 mmol/L (1.1-1 .4) 07/20/21 15:40 O2 Delivery Device Nc 07/20/21 15:40 O2 Liters/Min 5.0 % 07/20/21 15:40 Fixed Income Trading Vice President ID Pollyeri 07/20/21 15:40 Sodium 140 mmol/L (136-1 45) 07/30/21 08:18 Potassium 3.9 mmol/L (3.5-5 .1) 07/30/21 08:18 Chloride 93 mmol/L (98-107 ) L 07/30/21 08:18 Carbon Dioxide 34 mmol/L (22-29) H 07/30/21 08:18 Anion Gap 16.9 (5-19) 07/30/21 08:18 BUN 11 mg/dL (8-23) 07/30/21 08:18 Creatinine 0.6 mg/dL (0.5-0. 9) 07/30/21 08:18 GFR Calculation 101.3 mL/min (90- 130) 07/30/21 08:18 Glucose 80 mg/dL (65-115) 07/30/21 08:18 POC Glucose 77 mg/dL (70-110) 07/30/21 06:12 Estimat Average Gl ucose 128 07/21/21 04:32 Hemoglobin A1c 6.1 % (4.0-6.0) H 07/21/21 04:32 Calculated Osmolal ity 288 mOsm/kg (285- 295) 07/30/21 08:18 Calcium 9.6 mg/dL (8.5-10 .5) 07/30/21 08:18 Phosphorus 4.0 mg/dL (2.5-4. 5) 07/22/21 04:10 Magnesium 2.2 mg/dL (1.7-2. 3) 07/27/21 07:31 Iron 27 ug/dL (37-145) L 07/20/21 16:12 TIBC 439 mcg/dl 07/20/21 16:12 % Saturation 6.1 % (20-50) L 07/20/21 16:12 Unsat Iron Binding 412 ug/dL (112-34 7) H 07/20/21 16:12 Total Bilirubin 0.6 mg/dL (0.15-1 .2) 07/26/21 03:43 AST 16 U/L (0-32) 07/26/21 03:43 ALT 7 U/L (0-33) 07/26/21 03:43 Alkaline Phosphata se 58 IU/L (35-105) 07/26/21 03:43 Ammonia 62 umol/L (11-51) H 07/24/21 02:15 Creatine Kinase 26 U/L (26-192) 07/20/21 16:12 Troponin T Baselin e 26 ng/L (0-10) H 07/20/21 16:12 Troponin T 120 Min abdiel 24.85 ng/L (0-10) H 07/20/21 20:00 Delta Troponin T -1.15 ABS# (0-10) L 07/20/21 20:00 Troponin T Hi Sens 6Hr 22.97 ng/L (0-10) H 07/20/21 22:40 Troponin T Hi Sens 6Hr Delta -3.03 ng/L (0-12) L 07/20/21 22:40 NT-Pro-B Natriuret Pep 3648 pg/mL (0-125 ) H 07/20/21 16:12 Total Protein 5.9 g/dL (6.6-8.7 ) L 07/26/21 03:43 Albumin 3.4 g/dL (3.5-5.2 ) L 07/26/21 03:43 Globulin 2.5 g/dL (1.3-4.6 ) 07/26/21 03:43 Triglycerides 83 mg/dL (0-150) 07/21/21 04:32 Cholesterol 121 mg/dL (0-200) 07/21/21 04:32 LDL Cholesterol, C alc 78 mg/dL (50-129) 07/21/21 04:32 Total VLDL Cholest gifty 17 mg/dL (0-30) 07/21/21 04:32 HDL Cholesterol 26 mg/dL (60-100) L 07/21/21 04:32 Cholesterol/HDL Ra john 4.65 mg/dL (0.0-4 .40) H 07/21/21 04:32 Procalcitonin 0.04 ng/mL (0-0.5 ) 07/20/21 16:12 TSH 4.29 uIU/mL (0.27 -4.20) H 07/20/21 16:12 Free T4 1.72 ng/dL (0.82- 1.77) 07/20/21 16:12 Free T3 2.2 PG/ML (2.0-4. 4) 07/20/21 16:12 Urine Color Yellow (Yellow) 07/20/21 19:57 Urine Appearance Clear (CLEAR) 07/20/21 19:57 Urine pH 5 (5-7) 07/20/21 19:57 Ur Specific Gravit y 1.010 (1.005-1.0 30) 07/20/21 19:57 Urine Protein Neg (Negative) 07/20/21 19:57 Urine Glucose (UA) Norm (Normal) 07/20/21 19:57 Urine Ketones Negative (Negati ve) 07/20/21 19:57 Urine Blood 2+ (Negative) H 07/20/21 19:57 Urine Nitrate Negative (Negati ve) 07/20/21 19:57 Urine Bilirubin Neg (Negative) 07/20/21 19:57 Urine Urobilinogen Norm mg/dL (Negat crys) 07/20/21 19:57 Ur Leukocyte Kaylee ase Negative (Negati ve) 07/20/21 19:57 Urine RBC 5-10 /hpf (0-2) H 07/20/21 19:57 Urine WBC 0-4 /hpf (0-5) H 07/20/21 19:57 Ur Squamous Epith Cells 0-4 /hpf (0-5) H 07/20/21 19:57 Amorphous Sediment Not Reportable 07/20/21 19:57 Urine Bacteria Trace /hpf (NONE) 07/20/21 19:57 Urine Opiates Scre en Negative ng/mL (N egative) 07/20/21 19:57 Ur Barbiturates Sc reen Negative ng/mL (N egative) 07/20/21 19:57 Ur Phencyclidine S crn Negative ng/mL (N egative) 07/20/21 19:57 Ur Amphetamines Sc reen Negative ng/mL (N egative) 07/20/21 19:57 U Benzodiazepines Scrn Positive ng/mL (N egative) H 07/20/21 19:57 Urine Cocaine Scre en Negative ng/mL (N egative) 07/20/21 19:57 U Marijuana (THC) Screen Negative ng/mL (N egative) 07/20/21 19:57 Influenza Type A A g Negative (Negati ve) 07/21/21 00:18 Influenza Type B A g Negative (Negati ve) 07/21/21 00:18 Vitals: Last Vital Signs Temp 98 F 07/29/21 22:38 Pulse 93 07/30/21 08:55 Resp 20 H 07/30/21 08:50 BP 97/68 07/30/21 03:31 Pulse Ox 97 07/30/21 08:50 Discharge Plan Discharge Patient Disposition: Home Condition: Stable Prescriptions: New ferrous gluconate 324 mg (37.5 mg iron) Tablet 324 mg PO BIDWM Qty: 60 RF: 0 Lasix 40 mg tablet 60 mg PO BID 30 Days Qty: 90 RF: 0 Spiriva with HandiHaler 18 mcg capsule, w/inhalation device 1 cap inhalation DAILY Qty: 30 RF: 0 Continued Wixela Inhub 250-50 mcg/dose blister with device 1 inh INHALATION BID@08,20 RF: 0 diltiazem HCl 180 mg capsule,extended release 24hr 180 mg PO DAILY@08 RF: 0 hydrocortisone 2.5 % Cream 1 applic TOPICAL BID PRN (Reason: unknown) RF: 0 nystatin 100,000 unit/gram powder 1 applic TOPICAL BID@08,20 RF: 0 diclofenac sodium 1 % Gel See Rx Instructions .ROUTE .COMPLEX RF: 0 sotalol 80 mg tablet 80 mg PO BID@08,20 RF: 0 Euthyrox 150 mcg tablet 150 mcg PO DAILY@06 RF: 0 sertraline 50 mg tablet 50 mg PO DAILY@08 RF: 0 Changed lorazepam 0.5 mg tablet 0.5 mg PO BID@08,20 PRN (Reason: anxiety) Qty: 0 RF: 0 potassium chloride 8 mEq tablet extended release 8 meq PO DAILY Qty: 0 RF: 0 aripiprazole 5 mg tablet 10 mg PO BEDTIME@20 Qty: 30 RF: 0 trazodone 100 mg tablet 150 mg PO BEDTIME@20 Qty: 30 RF: 0 Discontinued furosemide 40 mg tablet 40 mg PO DAILY PRN (Reason: Edema) 14 Days Qty: 14 RF: 0 Discharge Orders: Discharge Order (Routine); Ordered 07/30/21 Ordered By: Elieser Tellez Other Ambulatory Orders: Sleep Study/Titration (Routine) Timeframe: 2 Days Facility: [facility] - Location: [facility] Ordered By: Douglas Richardson Referrals: Yulia Hunter FNP [Referring] - 4-7 days Discharge Diet: As Directed, Cardiac and Diabetic Discharge Activity: Increase activity as tolerated and As per PT/OT instructions Patient Instructions: Opioid Safety Activity Restrictions/Additional Instructions: Continue fluid restriction 1500 mL/day. Please follow-up with your primary doctor for recheck potassium, renal function at next appointment within next 1 week. Follow continue taking Lasix 60 mg twice daily. Please also have your primary doctor follow-up liver function, consider additional liver ultrasound given appearance of the liver that may suggest cirrhosis incidentally seen on CAT scan, although metabolic parameters at this time did not support cirrhosis. This will need continued follow-up. Please consider outpatient obstructive sleep apnea/sleep study. Discharge Attestations Time Spent in Discharge Care*: greater than 30 min Specific Discharge Activities: educating patient, educating and/or supporting family/caregiver, discussing with pcp/other providers, discussing with case operator/social workers/dc planners, documenting/other paperwork and evaluating patient/reviewing data Status at Discharge: Cognitive status at discharge: cognitively intact , Behavioral status at discharge: cooperative , Functional status at discharge: uses cane/walker Overall status at discharge: patient is back to baseline Quality Metrics Clinical Quality Measures During this hospital stay, did patient experience: None Coding Level of Care Code Acute Chg FW DC note Diagnoses CHF (congestive heart failure) I50.9 Acute on chronic respiratory failure with hypoxia and hypercapnia J96.21; J96.22 Pulmonary hypertension I27.20 Atrial fibrillation I48.11 Atrial fibrillation type: longstanding persistent Bilateral lower extremity edema R60.0 Essential hypertension I10 Type 2 diabetes mellitus E11.9 S/P evacuation of subdural hematoma Z98.890; Z86.79 Hypomagnesemia E83.42 Sundowning F05 Right-sided heart failure I50.810
--- NOTE | 2021-07-30 14:05 | PC.NURSE ---
Discharge Note Patient discharged to [facility] via private vehicle accompanied by family. Discharge instructions reviewed with patient and/or operations representative. Mobile pharmacy medications and/or prescriptions provided. Belongings/home medications returned.
== END 2021-07-30 14:05 | disposition home or self-care (01) | DRG 308 ==
LOC: ER 17:18 → CSU 17:39
PROVIDERS: Internal Medicine; Student in an Organized Health Care Education/Training Program; Admitting Provider Student in an Organized Health Care Education/Training Program; Emergency Provider Family Medicine; Visit Provider Student in an Organized Health Care Education/Training Program
DX: I48.11 Longstanding persistent atrial fibrillation (principal); I50.23 Acute on chronic systolic (congestive) heart failure; J96.22 Acute and chronic respiratory failure with hypercapnia; J96.21 Acute and chronic respiratory failure with hypoxia; L03.119 Cellulitis of unspecified part of limb; F05 Delirium due to known physiological condition; I25.10 Atherosclerotic heart disease of native coronary artery without angina pectoris; Z95.1 Presence of aortocoronary bypass graft; Z95.5 Presence of coronary angioplasty implant and graft; F31.75 Bipolar disorder, in partial remission, most recent episode depressed; I11.0 Hypertensive heart disease with heart failure; Z86.16 Personal history of COVID-19; E78.5 Hyperlipidemia, unspecified; Z86.718 Personal history of other venous thrombosis and embolism; I08.1 Rheumatic disorders of both mitral and tricuspid valves; I27.20 Pulmonary hypertension, unspecified; E11.9 Type 2 diabetes mellitus without complications; G47.33 Obstructive sleep apnea (adult) (pediatric); E87.6 Hypokalemia; E83.42 Hypomagnesemia
CPT/HCPCS: 36415; 36416; 36600; 51702; 71045; 71275; 80048; 80051; 80053; 80061; 80306; 81001; 82140; 82330; 82550; 82805; 82962; 83036; 83540; 83550; 83735; 83880; 84100; 84145; 84439; 84443; 84481; 84484; 85007; 85025; 85378; 85610; 87804; 90471; 90686; 90732; 93005; 94640; 94660; 94664; 96365; 96372; 96375; 97110; 97116; 97162; 97167; 97530; 99291; J1644; J1815; J1940; J2405; J3475; J3480; J3490; J7626; Q9967

== ENCOUNTER 2021-12-31 20:00 | Outpatient (CLI) | payer OTHER, SELFPAY | END 2021-12-31 20:01 | disposition home or self-care (01) | LOC: SLEEP 01-01 08:04 | PROVIDERS: PCP Family Medicine; Visit Provider Family Medicine | DX: G47.33 Obstructive sleep apnea (adult) (pediatric) (principal); J96.21 Acute and chronic respiratory failure with hypoxia | CPT/HCPCS: 95810 ==

== ENCOUNTER 2022-05-02 06:20 | Outpatient (CLI) | payer OTHER, SELFPAY ==
--- NOTE | 2022-05-02 | US_ITS ---
WS: [id number] Complete ABDOMINAL ULTRASOUND HISTORY: ANEMIA COMPARISON: 01/05/2021 Liver: 18.5 cm in length. Liver is mildly enlarged. No mass. Surface of the liver is very slightly ir regular. No bile duct dilatation. Portal Vein: Mildly phasic undulating appearance of the portal vein. Gallbladder: Normally distended gallbladder. Small gravel-like stones are present in the dependent ga llbladder. These stones are mobile. Gallbladder wall thickness: 0.5 cm. Pancreas: Normal size and echogenicity. CBD: 0.7 cm. Right kidney: 10.0 cm x 7.9 cm x 5.6 cm. No mass, cortical thickening or hydronephrosis. Left kidney: 10.9 cm x 4.8 cm x 5.3 cm. No mass, cortical thickening or hydronephrosis. Spleen: Spleen is enlarged extending over length of 14.9 cm. Normal echogenicity. No mass. Abdominal aorta and IVC are within normal limits. Small to moderate amount of ascites with in the peritoneal cavity. US/US abdomen complete* [id number] IMPRESSION: 1. Cholelithiasis and gallbladder wall thickening without evidence for acute c holecystitis. 2. Cirrhosis and changes of portal venous hypertension. 3. Enlarged spleen. 4. Mild to moderate ascites.
== END 2022-05-02 06:21 | disposition home or self-care (01) ==
LOC: RAD 06:20
PROVIDERS: PCP Family Medicine; Visit Provider Nurse Practitioner Family
DX: D64.9 Anemia, unspecified (principal); K80.20 Calculus of gallbladder without cholecystitis without obstruction; R16.1 Splenomegaly, not elsewhere classified; R18.8 Other ascites; K74.60 Unspecified cirrhosis of liver
CPT/HCPCS: 76700

== ENCOUNTER 2022-05-14 12:13 | Emergency (ER) | payer OTHER, SELFPAY ==
--- NOTE | 2022-05-14 | USR_ITS ---
Ordering Provider/Ordering MD: Date of Service: Procedure(s): Accession Number(s): Report Number: [id number] PROCEDURE INFORMATION: Exam: US Abdomen; Limited Exam date and time: 05/14/2022 4:52 PM Age: 62 years old Clinical indication: Abdominal pain; Additional info: Eval amount fluid TECHNIQUE: Imaging protocol: Real time ultrasound of the abdomen with image documentation. Limited exam focused on the region of clinical interest. COMPARISON: No relevant prior studies available. FINDINGS: Intraperitoneal space: Ijfu-nz-dfoifqgm ascites located in all 4 quadrants. Dictated By: Jay Nelson DO Signed By: Signed Date/Time: DD/ 1652 MTDAbel
--- NOTE | 2022-05-14 | USR_ITS ---
[facility] Final Radiology Report Call: [phone] assistance Online chat: [email or web address] ([email or web address]) Name: DOUGIE POLLOCK Age: 62Years F Date: 05/14/2022 SSN: -- : 1960 Study: US ABDOMEN LTD Requesting Physician: JEAN PAUL MOLINA Images: 6 Add?l Studies: Provided Clinical History: eval amount fluid PROCEDURE INFORMATION: Exam: US Abdomen; Limited Exam date and time: 05/14/2022 4:52 PM Age: 62 years old Clinical indication: Abdominal pain; Additional info: Eval amount fluid TECHNIQUE: Imaging protocol: Real time ultrasound of the abdomen with image documentation. Limited exam focused on the region of clinical interest. COMPARISON: No relevant prior studies available. FINDINGS: Intraperitoneal space: Fngy-tv-tjooxqpg ascites located in all 4 quadrants. IMPRESSION: Iulg-vo-jyurxjck ascites located in all 4 quadrants. Thank you for allowing us to participate in the care of your patient. Dictated and Authenticated by: Jay Nelson DO 05/14/2022 5:45 PM Central Time ([place] & [place]) MAI
[2022-05-14 12:44] VITALS: BP 115/74; PULSE 86; RESP 18; TEMP 36.8; O2SAT 93
[2022-05-14 13:41] LABS: Basophils % 0.4 %; Eosinophils # 0.2 10^3/uL (0.0-0.8); Eosinophils % 3.1 %; Hematocrit 39.8 % (37.0-47.0); Hemoglobin 12.8 g/dL (11.5-15.3); Lymphocytes # 1.6 10^3/uL (0.8-4.8); Lymphocytes % 22.3 %; Mean Corpuscular HGB Conc 32.2 g/dL (30.0-36.0); Mean Corpuscular Hemoglobin 29.8 pg (28.0-34.0); Mean Corpuscular Volume 92.8 fl (81-99); Mean Platelet Volume 9.5 fL (7.4-10.4); Monocytes # 0.7 10^3/uL (0.2-0.9); Monocytes % 9.4 %; Neutrophils # 4.61 10^3/uL (1.8-7.7); Neutrophils % 64.7 %; Nucleated Red Blood Cells % 0 %; Platelet Count 253 10^3/cmm (130-400); Red Blood Count 4.29 10^6/uL (4.1-5.3); Red Cell Distribution Width 13.9 % (12.1-15.1); White Blood Count 7.1 10^3/uL (4.0-10.0)
[2022-05-14 14:13] LABS: Alanine Aminotransferase 10 U/L (0-33); Albumin Level 4.5 g/dL (3.5-5.2); Alkaline Phosphatase 104 U/L (35-105); Anion Gap 15.4 (5-19); Aspartate Amino Transferase 17 U/L (0-32); Blood Urea Nitrogen 23 mg/dL (8-23); Calcium 9.5 mg/dL (8.5-10.5); Carbon Dioxide 31 mmol/L (22-29); Chloride 93 mmol/L (98-107); Globulin 3.8 g/dL (1.3-4.6); Glomerular Filtration Rate 72.4 mL/min (90-130); Glucose 93 mg/dL (65-115); NT Pro B Type Natriuretic Pept 1787 pg/mL (0-125); Osmolality Calculated 283 mOsm/kg (285-295); Potassium 4.4 mmol/L (3.5-5.1); Sodium 135 mmol/L (136-145); Total Bilirubin 0.6 mg/dL (0.15-1.2); Total Protein 8.3 g/dL (6.6-8.7)
[2022-05-14 15:28] VITALS: BP 114/76; PULSE 74; O2SAT 100
--- NOTE | 2022-05-14 15:29 | XR_ITS ---
WS: [id number] Exam: XR chest 1V portable [id number] Date/Time of Exam: 05/14/2022 3:36 PM Reason For Exam: dyspnea/cough Comparison 07/20/2021. The lungs are fully inflated. Mild cardiac enlargement unchanged. Chronic elevation of the right diap hragm. Chronic pulmonary parenchymal changes in the left lower lobe. Signs of previous CABG surgery. Bony structures are intact. XR/XR chest 1V portable [id number] IMPRESSION: 1. No acute process noted. 2. Cardiac enlargement unchanged. Chronic elevation of the right diaphragm. Add itional minor findings as above.
[2022-05-14 15:30] VITALS: BP 119/82; PULSE 65; RESP 18; O2SAT 100
--- NOTE | 2022-05-14 15:30 | W.ED.GENADLT ---
HPI - General Adult General: Chief complaint: General Medical Stated complaint: swelling Time Seen by Provider: 05/14/22 15:16 Source: patient Mode of arrival: EMS History of Present Illness: 62-year-old female presents emergency room complaining of fluid in her abdomen. She has a known history of coronary disease she has no history of alcohol use or hepatitis in the past. She tells me she has had this before. Onset (ago): day(s) Severity: moderate Quality: aching Pain Consistency: constant Relieving factors: none Exacerbating factors: none Associated symptoms: Reports decreased appetite, malaise, nausea and weakness; Deny chest pain, confusion, cough, diaphoresis, dyspnea, fevers/chills, headache(s), rash, palpitations, seizures, short of breath, syncope or vomiting Review of Systems Const: Reports: malaise; Denies: fever(s), chills or diaphoresis ENMT: Denies: throat pain, ear or mastoid pain, nasal discharge or nasal congestion Card: Denies: chest pain, palpitations or syncope Resp: Denies: dyspnea, productive cough, non-productive cough or wheezing GI: Reports: abdominal pain, nausea and bloating; Denies: vomiting : Denies: flank pain, difficulty voiding, dysuria, urinary frequency or urinary urgency Musc: Denies: neck pain or back pain Skin/Breast: Denies: rash or pruritus Neuro: Denies: headache(s) or confusion PFS ED PFSH: Medical History (Updated 05/22/22 @ 00:01 by ) Acute psychosis ASHD (arteriosclerotic heart disease) Atherosclerosis of coronary artery of [place] heart without angina pectoris Atrial fibrillation Bilateral lower extremity edema Bipolar disorder in partial remission The patient denies history of euphoria, decreased need for sleep, increase in energy, racing thoughts, pressured speech, spending sprees etc. Therefore this diagnosis is removed. Cellulitis CHF (congestive heart failure) Chronic anticoagulation Eliquis COVID-19 January Dyslipidemia Essential hypertension Hx of deep venous thrombosis Major depression in partial remission Mitral valve regurgitation Pulmonary hypertension Right-sided heart failure Subdural hematoma Tricuspid valve regurgitation Type 2 diabetes mellitus Surgical History (System 05/14/22 @ 17:22 by Nicci Tadeo) History of coronary artery bypass graft 2004 History of coronary artery stent placement History of total vaginal hysterectomy History of tubal ligation S/P evacuation of subdural hematoma Status post colonoscopy Family History Other CAD (coronary artery disease) Diabetes Hypertension Social History (System 05/14/22 @ 17:22 by Nicci Tadeo) Smoking and tobacco status: never smoked Alcohol intake: current Alcohol intake frequency: holidays/special occasions only Household members: significant other Marital status: Single Physical Exam Const: GENERAL APPEARANCE: cooperative and comfortable ORIENTATION/CONSCIOUSNESS: Yes awake, Yes oriented to person, Yes oriented to place and Yes oriented to time HENMT: COMMON NORMALS: normocephalic, atraumatic and hearing grossly normal bilaterally HEAD & SCALP: normocephalic and atraumatic Resp: COMMON NORMALS: normal respiratory effort, No retractions, No use of accessory muscles and clear to auscultation bilaterally AUSCULTATION: clear to auscultation bilaterally Cardio: COMMON NORMALS: regular rate, regular rhythm and No murmurs present (Cardio) RATE: regular rate RHYTHM: regular rhythm GI: COMMON NORMALS: Soft to palpation and No hepatosplenomegaly present AUSCULTATION: Yes normoactive bowel sounds PALPATION: Yes Soft to palpation, No Tenderness to palpation present (GI), No Guarding due to palpation present (GI) and Yes No hepatosplenomegaly present Extremity: COMMON NORMALS: normal to inspection, capillary refill normal and no calf tenderness Neuro: SENSORIUM/ORIENTATION: Yes oriented to person, Yes oriented to place and Yes oriented to time Skin: COMMON NORMALS: no rashes or lesions noted GENERAL SKIN EXAM: no rashes or lesions noted Course Vital Signs: Vital signs: Vital Signs Temperature 98.2 F 05/14/22 12:44 Pulse Rate 85 05/14/22 18:22 Respiratory Rate 20 H 05/14/22 17:47 Blood Pressure 122/79 05/14/22 18:22 Pulse Oximetry 100 05/14/22 18:22 Oxygen Delivery Me thod 05/14/22 17:00 MDM - General Adult Medical Decision Making Labs and imaging reviewed. We will discharge patient from the ER scheduled for outpatient paracentesis in the next few days. Medical Records I reviewed the patient's medical records. Lab Data I reviewed the patient's lab results. : 05/14/22 13:33 05/14/22 13:33 Radiology Impressions Chest X-Ray 05/14/22 15:29 IMPRESSION: 1. No acute process noted. 2. Cardiac enlargement unchanged. Chronic elevation of the right diaphragm. Additional minor findings as above. Laboratory Results WBC 7.1 10^3/uL (4.0-10.0) 05/14/22 13:33 RBC 4.29 10^6/uL (4.1-5.3) 05/14/22 13:33 Hgb 12.8 g/dL (11.5-15.3) 05/14/22 13:33 Hct 39.8 % (37.0-47.0) 05/14/22 13:33 MCV 92.8 fl (81-99) 05/14/22 13:33 MCH 29.8 pg (28.0-34.0) 05/14/22 13:33 MCHC 32.2 g/dL (30.0-36.0) 05/14/22 13:33 RDW 13.9 % (12.1-15.1) 05/14/22 13:33 Plt Count 253 10^3/cmm (130-400) 05/14/22 13:33 MPV 9.5 fL (7.4-10.4) 05/14/22 13:33 Neut % (Auto) 64.7 % 05/14/22 13:33 Lymph % (Auto) 22.3 % 05/14/22 13:33 [place] % (Auto) 9.4 % 05/14/22 13:33 Eos % (Auto) 3.1 % 05/14/22 13:33 Baso % (Auto) 0.4 % 05/14/22 13:33 Neut # (Auto) 4.61 10^3/uL (1.8-7.7) 05/14/22 13:33 Lymph # (Auto) 1.6 10^3/uL (0.8-4.8) 05/14/22 13:33 [place] # (Auto) 0.7 10^3/uL (0.2-0.9) 05/14/22 13:33 Eos # (Auto) 0.2 10^3/uL (0.0-0.8) 05/14/22 13:33 Baso # (Auto) 0.0 10^3/uL (0.0-0.1) 05/14/22 13:33 Nucleated RBC % (auto) 0 % 05/14/22 13:33 Nucleated RBCs # 0.0 /100WBC 05/14/22 13:33 Sodium 135 mmol/L (136-145) L 05/14/22 13:33 Potassium 4.4 mmol/L (3.5-5.1) 05/14/22 13:33 Chloride 93 mmol/L (98-107) L 05/14/22 13:33 Carbon Dioxide 31 mmol/L (22-29) H 05/14/22 13:33 Anion Gap 15.4 (5-19) 05/14/22 13:33 BUN 23 mg/dL (8-23) 05/14/22 13:33 Creatinine 0.8 mg/dL (0.5-0.9) 05/14/22 13:33 GFR Calculation 72.4 mL/min (90-130) L 05/14/22 13:33 Glucose 93 mg/dL (65-115) 05/14/22 13:33 Calculated Osmolality 283 mOsm/kg (285-295) L 05/14/22 13:33 Calcium 9.5 mg/dL (8.5-10.5) 05/14/22 13:33 Total Bilirubin 0.6 mg/dL (0.15-1.2) 05/14/22 13:33 AST 17 U/L (0-32) 05/14/22 13:33 ALT 10 U/L (0-33) 05/14/22 13:33 Alkaline Phosphatase 104 U/L (35-105) 05/14/22 13:33 NT-Pro-B Natriuret Pep 1787 pg/mL (0-125) H 05/14/22 13:33 Total Protein 8.3 g/dL (6.6-8.7) 05/14/22 13:33 Albumin 4.5 g/dL (3.5-5.2) 05/14/22 13:33 Globulin 3.8 g/dL (1.3-4.6) 05/14/22 13:33 Urine Color Yellow (Yellow) 05/14/22 17:20 Urine Appearance Clear (CLEAR) 05/14/22 17:20 Urine pH 8 (5-7) H 05/14/22 17:20 Ur Specific [place] 1.010 (1.005-1.030) 05/14/22 17:20 Urine Protein Neg (Negative) 05/14/22 17:20 Urine Glucose (UA) Norm (Normal) 05/14/22 17:20 Urine Ketones Negative (Negative) 05/14/22 17:20 Urine Blood Neg (Negative) 05/14/22 17:20 Urine Nitrate Negative (Negative) 05/14/22 17:20 Urine Bilirubin Neg (Negative) 05/14/22 17:20 Prot Sulfosalicylic Acd Negative (Negative) 05/14/22 17:20 Urine Urobilinogen Norm mg/dL (Negative) 05/14/22 17:20 Ur Leukocyte Esterase Negative (Negative) 05/14/22 17:20 Discharge Plan Discharge Patient Disposition: Home Clinical Impression: Abdominal ascites, Bilateral lower extremity edema, Essential hypertension, CHF (congestive heart failure) Condition: Stable Prescriptions: No Action aripiprazole 5 mg tablet 5 mg PO BEDTIME@20 furosemide 40 mg tablet 60 mg PO DAILY Qty: 45 3RF fluticasone propion-salmeterol [Wixela Inhub] 250-50 mcg/dose blister with device 1 inh INHALATION BID@08,20 diltiazem HCl 180 mg capsule,extended release 24hr 180 mg PO DAILY@08 hydrocortisone 2.5 % Cream 1 applic TOPICAL BID PRN (Reason: unknown) nystatin 100,000 unit/gram powder 1 applic TOPICAL BID@08,20 diclofenac sodium 1 % Gel See Rx Instructions .ROUTE .COMPLEX Rx Instructions: apply topically to affected area as directed twice a day as needed sotalol 80 mg tablet 80 mg PO BID@08,20 levothyroxine [Euthyrox] 150 mcg tablet 150 mcg PO DAILY@06 sertraline 50 mg tablet 50 mg PO DAILY@08 ferrous gluconate 324 mg (37.5 mg iron) Tablet 324 mg PO BIDWM Qty: 60 0RF Spiriva with HandiHaler 18 mcg capsule, w/inhalation device 1 cap inhalation DAILY Qty: 30 0RF Rx Instructions: puncture 1 cap using device; one dose = 2 inhalations trazodone 100 mg tablet 150 mg PO BEDTIME@20 Qty: 30 0RF aspirin 81 mg tablet,delayed release (DR/EC) 81 mg PO DAILY lorazepam 1 mg Tablet 1 mg PO BID PRN (Reason: Anxiety) potassium chloride 8 mEq tablet extended release 8 meq PO BID spironolactone 25 mg Tablet 25 mg PO DAILY Discharge Orders: Discharge ED (Routine); Ordered 05/14/22 Ordered By: Jean Claude De La Fuente Referrals: Zachary Trent MD [Primary Care Provider] - Discharge Diet: Usual diet Discharge Activity: Increase activity as tolerated Patient Instructions: Opioid Safety, Pain Management Activity Restrictions/Additional Instructions: Return to outpatient GI at noon on 1027 for a scheduled paracentesis. Minimal activity until that time. 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
--- NOTE | 2022-05-14 15:42 | ECG_ITS ---
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 Measurements Intervals [place] Rate: 77 P: AR: QRS: 61 QRSD: 95 T: 51 QT: 408 QTc: 462 Interpretive Statements ATRIAL FIBRILLATION LOW QRS VOLTAGE IN PRECORDIAL LEADS [QRS DEFLECTION < 1.0 mV IN CHEST LEADS] INCOMPLETE RIGHT BUNDLE BRANCH BLOCK [90+ ms QRS DURATION, TERMINAL R IN V1/V2, 40+ ms S IN I/aVL/V4/V5/V6] ABNORMAL RHYTHM ECG No previous ECG available for comparison Electronically Signed On 05-15-2022 0:20:29 CDT by Parish Anderson M.D. [id number]
--- NOTE | 2022-05-14 16:28 | PC.NURSE ---
pt placed on continuous nibp, spo2, and cm
--- NOTE | 2022-05-14 16:34 | USR_ITS ---
PROCEDURE INFORMATION: Exam: US Abdomen; Limited Exam date and time: 05/14/2022 4:52 PM Age: 62 years old Clinical indication: Abdominal pain; Additional info: Eval amount fluid TECHNIQUE: Imaging protocol: Real time ultrasound of the abdomen with image documentation. Limited exam focused on the region of clinical interest. COMPARISON: No relevant prior studies available. FINDINGS: Intraperitoneal space: Nrfl-ur-xfcnotze ascites located in all 4 quadrants.
[2022-05-14 17:00] VITALS: BP 134/84; PULSE 79; O2SAT 95
[2022-05-14 17:44] LABS: Add Urine Microscopic? NO; Charge for UA Resulting for Rev
[2022-05-14 17:47] VITALS: BP 133/83; PULSE 84; RESP 20; O2SAT 100
[2022-05-14 18:03] LABS: Urine Appearance Clear (CLEAR); Urine Color Yellow (Yellow); pH Urine 8 (5-7)
[2022-05-14 18:04] LABS: Bilirubin Urine Neg (Negative); Blood Urine Neg (Negative); Glucose Urine UA Norm (Normal); Ketones Urine Negative (Negative); Leukocyte Esterase Urine Negative (Negative); Nitrate Urine Negative (Negative); Protein Urine Neg (Negative); Sulfosalicylic Acid Urine Negative (Negative); Urobilinogen Urine Norm (Negative)
[2022-05-14 18:22] VITALS: BP 122/79; PULSE 85; O2SAT 100
--- NOTE | 2022-05-15 07:31 | DCPLANNER ---
Addendum entered by Stacey Prado 06/13/22 05:36: Patient had a follow up appointment scheduled for 05.16.22 for a paracentesis - patient did attend appointment. Original Note: sales team manager had message to schedule an outpatient paracentesis for patient. sales team manager faxed signed order to centralized scheduling.
== END 2022-05-14 18:24 | disposition home or self-care (01) ==
PROVIDERS: Emergency Provider Family Medicine; PCP Pathology Anatomic Pathology & Clinical Pathology
DX: R18.8 Other ascites (principal); R60.0 Localized edema; I11.0 Hypertensive heart disease with heart failure; I50.9 Heart failure, unspecified; Z79.82 Long term (current) use of aspirin; Z95.1 Presence of aortocoronary bypass graft; I25.10 Atherosclerotic heart disease of native coronary artery without angina pectoris; E78.5 Hyperlipidemia, unspecified; E11.9 Type 2 diabetes mellitus without complications
CPT/HCPCS: 71045; 76705; 80053; 81003; 83880; 85025; 93005; 99285

== ENCOUNTER 2022-05-16 10:52 | Day surgery (SDC) | payer OTHER, SELFPAY ==
--- NOTE | 2022-05-16 10:57 | US_ITS ---
WS: [id number] ULTRASOUND-GUIDED PARACENTESIS CLINICAL INFORMATION: ascities COMPARISON: None. Procedure Informed consent: The risks, benefits, and alternatives of the procedure were discussed with the belinda ent. Verbal and written consent was obtained. Timeout: A timeout was performed to confirm the correct patient, procedure, and site. Preparation: A suitable skin site was identified. The patient was prepped and draped in usual sterile fashion. Lidocaine 1% was used for local anesthesia. Catheter: 4 Yoruba One-step Yueh catheter. Side: RIGHT Lower quadrant. Fluid Volume: 5000 ml Color: Clear yellow DISPOSITION: Discarded safely. Complications: None. Patient disposition: Discharged from the department in stable condition. US/US paracentesis abd w [id number] IMPRESSION: Uncomplicated ultrasound-guided paracentesis. Removal of 5000cc
[2022-05-16 11:14] VITALS: BP 122/80; PULSE 73; RESP 20; TEMP 36.3; O2SAT 98
[2022-05-16 12:18] VITALS: BP 103/61; PULSE 69; RESP 20; TEMP 36.5; O2SAT 92
== END 2022-05-16 12:25 | disposition home or self-care (01) ==
LOC: GILAB 10:55
PROVIDERS: Radiology Neuroradiology; PCP Pathology Anatomic Pathology & Clinical Pathology; Visit Provider Family Medicine
PROC: (CPT 49082; principal; 2022-05-16 12:00)
DX: R18.8 Other ascites (principal)
CPT/HCPCS: 49083

== ENCOUNTER 2022-06-06 05:11 | Inpatient (IN) | payer OTHER, SELFPAY ==
[2022-06-06] VITALS (21 sets, daily range): BP systolic 102–113; BP diastolic 62–79; PULSE 101–117; RESP 14–31; TEMP 36.7–37.1; O2SAT 92–97; BMI 28.8
--- NOTE | 2022-06-06 05:17 | W.ED.GENADLT ---
Documented by User: Cherelle Warner MD 06/06/22 05:28 HPI - General Adult General: Chief complaint: Extremity Injury, Lower Stated complaint: LLE Swellling Time Seen by Provider: 06/06/22 05:14 Source: patient and EMS Mode of arrival: EMS History of Present Illness: 62-year-old female who is here by EMS for left lower leg swelling. States she had a history of a DVT in that leg in the past years ago she is not currently on any blood thinners. She states she had increased swelling especially to her left lower leg over the last 2 to 3 days with some redness and pain she also has a rash to her left inner thigh appears to likely be shingles she had some weeping and drainage from that leg. Associated symptoms: Deny chest pain, dyspnea, headache(s), nausea, rash or vomiting Review of Systems Const: Denies: fever(s), chills, body aches or change in appetite Eyes: Denies: blurry vision or eye discomfort ENMT: Denies: throat pain or dental pain Card: Denies: chest pain Resp: Denies: dyspnea GI: Denies: abdominal pain, nausea, vomiting or diarrhea : Denies: dysuria Musc: Reports: extremity pain and extremity swelling Skin/Breast: Denies: rash Neuro: Denies: headache(s) Psych: Denies: depression Flavio/Lymph: Denies: easy bruising All/Imm: Denies: urticaria PFSH ED PFSH: Medical History Acute psychosis ASHD (arteriosclerotic heart disease) Atherosclerosis of coronary artery of [place] heart without angina pectoris Atrial fibrillation Bilateral lower extremity edema Bipolar disorder in partial remission The patient denies history of euphoria, decreased need for sleep, increase in energy, racing thoughts, pressured speech, spending sprees etc. Therefore this diagnosis is removed. Cellulitis CHF (congestive heart failure) Chronic anticoagulation Eliquis COVID-19 January Dyslipidemia Essential hypertension Hx of deep venous thrombosis Major depression in partial remission Mitral valve regurgitation Pulmonary hypertension Right-sided heart failure Subdural hematoma Tricuspid valve regurgitation Type 2 diabetes mellitus Surgical History History of coronary artery bypass graft 2004 History of coronary artery stent placement History of total vaginal hysterectomy History of tubal ligation S/P evacuation of subdural hematoma Status post colonoscopy Family History Other CAD (coronary artery disease) Diabetes Hypertension Social History Smoking and tobacco status: never smoked Alcohol intake: current Alcohol intake frequency: holidays/special occasions only Household members: significant other Marital status: Single Physical Exam Const: COMMON NORMALS: patient oriented x3 HENMT: COMMON NORMALS: normocephalic and atraumatic HEAD & SCALP: normocephalic and atraumatic Eye: COMMON NORMALS: Equal, round and reactive pupils present and EOMs intact bilaterally PUPIL: Yes Equal, round and reactive pupils present Neck/C-Spine: COMMON NORMALS: full ROM and supple Chest: COMMONS NORMALS: normal inspection of the chest and normal palpation of entire chest wall Resp: COMMON NORMALS: normal respiratory effort, No retractions, No use of accessory muscles and clear to auscultation bilaterally AUSCULTATION: clear to auscultation bilaterally Cardio: COMMON NORMALS: regular rate, regular rhythm and No murmurs present (Cardio) RATE: regular rate RHYTHM: regular rhythm GI: COMMON NORMALS: Normal to inspection, nondistended, normoactive bowel sounds present, Soft to palpation, non-tender and no masses PALPATION: Yes Soft to palpation Extremity: NARRATIVE EXTREMITY EXAM: Swelling and redness to left leg from the knee down she also has a rash to the left inner thigh that appears to be likely shingles distal pulses intact. Neuro: COMMON NORMALS: patient oriented x3, moves all extremities and no focal motor deficits Psych: COMMON NORMALS: mental status grossly normal, Normal thought process present and cooperative THOUGHT PROCESS: Normal thought process present Skin: COMMON NORMALS: no rashes or lesions noted and no wounds GENERAL SKIN EXAM: no rashes or lesions noted Course Vital Signs: Vital signs: Vital Signs Temperature 98.1 F 06/06/22 05:12 Pulse Rate 113 H 06/06/22 06:45 Respiratory Rate 18 06/06/22 06:45 Blood Pressure 106/69 06/06/22 06:45 Pulse Oximetry 95 06/06/22 06:45 Oxygen Delivery Me thod 06/06/22 06:45 [facility] - General Adult Lab Data 06/06/22 05:12 06/06/22 06:25 Radiology Impressions Venous Duplex 06/06/22 05:29 IMPRESSION: 1. No evidence of deep vein thrombosis. 2. Moderate lower extremity subcutaneous edema. Some enlarged left inguinal lymph nodes. Laboratory Results WBC 11.7 10^3/uL (4.0-10.0) H 06/06/22 05:12 RBC 4.61 10^6/uL (4.1-5.3) 06/06/22 05:12 Hgb 13.5 g/dL (11.5-15.3) 06/06/22 05:12 Hct 40.7 % (37.0-47.0) 06/06/22 05:12 MCV 88.3 fl (81-99) 06/06/22 05:12 MCH 29.3 pg (28.0-34.0) 06/06/22 05:12 MCHC 33.2 g/dL (30.0-36.0) 06/06/22 05:12 RDW 14.3 % (12.1-15.1) 06/06/22 05:12 Plt Count 166 10^3/cmm (130-400) 06/06/22 05:12 MPV 12.0 fL (7.4-10.4) H 06/06/22 05:12 Neut % (Auto) 82.0 % 06/06/22 05:12 Lymph % (Auto) 7.8 % 06/06/22 05:12 [place] % (Auto) 8.2 % 06/06/22 05:12 Eos % (Auto) 0.1 % 06/06/22 05:12 Baso % (Auto) 0.3 % 06/06/22 05:12 Neut # (Auto) 9.58 10^3/uL (1.8-7.7) H 06/06/22 05:12 Lymph # (Auto) 0.9 10^3/uL (0.8-4.8) 06/06/22 05:12 [place] # (Auto) 1.0 10^3/uL (0.2-0.9) H 06/06/22 05:12 Eos # (Auto) 0.0 10^3/uL (0.0-0.8) 06/06/22 05:12 Baso # (Auto) 0.0 10^3/uL (0.0-0.1) 06/06/22 05:12 Nucleated RBC % (auto) 0 % 06/06/22 05:12 Nucleated RBCs # 0.0 /100WBC 06/06/22 05:12 Sodium 126 mmol/L (136-145) L 06/06/22 06:25 Potassium 3.8 mmol/L (3.5-5.1) 06/06/22 06:25 Chloride 89 mmol/L (98-107) L 06/06/22 06:25 Carbon Dioxide 27 mmol/L (22-29) 06/06/22 06:25 Anion Gap 13.8 (5-19) 06/06/22 06:25 BUN 25 mg/dL (8-23) H 06/06/22 06:25 Creatinine 1.0 mg/dL (0.5-0.9) H 06/06/22 06:25 GFR Calculation 56.0 mL/min (90-130) L 06/06/22 06:25 Glucose 103 mg/dL (65-115) 06/06/22 06:25 Calculated Osmolality 267 mOsm/kg (285-295) L 06/06/22 06:25 Lactic Acid 1.2 mmol/L (0.5-2.2) 06/06/22 05:40 Calcium 8.8 mg/dL (8.5-10.5) 06/06/22 06:25 Total Bilirubin 1.1 mg/dL (0.15-1.2) 06/06/22 06:25 AST 45 U/L (0-32) H 06/06/22 06:25 ALT 19 U/L (0-33) 06/06/22 06:25 Alkaline Phosphatase 70 U/L (35-105) 06/06/22 06:25 C-Reactive Protein 203.6 mg/L (0.0-4.9) H 06/06/22 06:25 Total Protein 7.2 g/dL (6.6-8.7) 06/06/22 06:25 Albumin 3.2 g/dL (3.5-5.2) L 06/06/22 06:25 Globulin 4.0 g/dL (1.3-4.6) 06/06/22 06:25 Discharge Plan Discharge Patient Disposition: Admitted As Inpatient Clinical Impression: Cellulitis, Atrial fibrillation, History of coronary artery bypass graft, Type 2 diabetes mellitus, Atherosclerosis of coronary artery of [place] heart without angina pectoris, Essential hypertension, CHF (congestive heart failure), Zoster Condition: Stable Prescriptions: No Action aripiprazole 5 mg tablet 5 mg PO BEDTIME@20 furosemide 40 mg tablet 60 mg PO DAILY Qty: 45 3RF diltiazem HCl 180 mg capsule,extended release 24hr 180 mg PO DAILY@08 hydrocortisone 2.5 % Cream 1 applic TOPICAL BID PRN (Reason: unknown) nystatin 100,000 unit/gram powder 1 applic TOPICAL BID@08,20 diclofenac sodium 1 % Gel See Rx Instructions .ROUTE .COMPLEX Rx Instructions: apply topically to affected area as directed twice a day as needed sotalol 80 mg tablet 80 mg PO BID@08,20 levothyroxine [Euthyrox] 150 mcg tablet 150 mcg PO DAILY@06 sertraline 50 mg tablet 50 mg PO DAILY@08 ferrous gluconate 324 mg (37.5 mg iron) Tablet 324 mg PO BIDWM Qty: 60 0RF Spiriva with HandiHaler 18 mcg capsule, w/inhalation device 1 cap inhalation DAILY Qty: 30 0RF Rx Instructions: puncture 1 cap using device; one dose = 2 inhalations trazodone 100 mg tablet 150 mg PO BEDTIME@20 Qty: 30 0RF aspirin 81 mg tablet,delayed release (DR/EC) 81 mg PO DAILY lorazepam 1 mg Tablet 1 mg PO BID PRN (Reason: Anxiety) potassium chloride 8 mEq tablet extended release 8 meq PO BID spironolactone 25 mg Tablet 25 mg PO DAILY Referrals: Zachary Trent MD [Primary Care Provider] - Sign Out Sign Out Data: Patient Sign Out occurred on 06/06/22 at 05:49. Patient's care was discussed, and care was transferred from to Jean Claude De La Fuente DO. Coding Level of Care Code ED Catalyst Operator Chief for Chg Fwd Exam Comprehensive Documented by User: Jean Claude De La Fuente DO 06/06/22 07:47 HPI - General Adult General: Chief complaint: Extremity Injury, Lower Stated complaint: LLE Swellling Time Seen by Provider: 06/06/22 05:14 PFSH ED PFSH: Medical History Acute psychosis ASHD (arteriosclerotic heart disease) Atherosclerosis of coronary artery of [place] heart without angina pectoris Atrial fibrillation Bilateral lower extremity edema Bipolar disorder in partial remission The patient denies history of euphoria, decreased need for sleep, increase in energy, racing thoughts, pressured speech, spending sprees etc. Therefore this diagnosis is removed. Cellulitis CHF (congestive heart failure) Chronic anticoagulation Eliquis COVID-19 January Dyslipidemia Essential hypertension Hx of deep venous thrombosis Major depression in partial remission Mitral valve regurgitation Pulmonary hypertension Right-sided heart failure Subdural hematoma Tricuspid valve regurgitation Type 2 diabetes mellitus Surgical History History of coronary artery bypass graft 2004 History of coronary artery stent placement History of total vaginal hysterectomy History of tubal ligation S/P evacuation of subdural hematoma Status post colonoscopy Family History Other CAD (coronary artery disease) Diabetes Hypertension Social History Smoking and tobacco status: never smoked Alcohol intake: current Alcohol intake frequency: holidays/special occasions only Household members: significant other Marital status: Single Course Vital Signs: Vital signs: Vital Signs Temperature 98.1 F 06/06/22 05:12 Pulse Rate 113 H 06/06/22 06:45 Respiratory Rate 18 06/06/22 06:45 Blood Pressure 106/69 06/06/22 06:45 Pulse Oximetry 95 06/06/22 06:45 Oxygen Delivery Me thod 06/06/22 06:45 MDM - General Adult Medical Decision Making Care assumed at change of shift. Will admit given dose of IV vancomycin. White count 11 7 with left shift. The venous duplex is negative. Discussed with Dr. Mckay orders written Medical Records I reviewed the patient's medical records. Lab Data I reviewed the patient's lab results. 06/06/22 05:12 06/06/22 06:25 Radiology Impressions Venous Duplex 06/06/22 05:29 IMPRESSION: 1. No evidence of deep vein thrombosis. 2. Moderate lower extremity subcutaneous edema. Some enlarged left inguinal lymph nodes. Laboratory Results WBC 11.7 10^3/uL (4.0-10.0) H 06/06/22 05:12 RBC 4.61 10^6/uL (4.1-5.3) 06/06/22 05:12 Hgb 13.5 g/dL (11.5-15.3) 06/06/22 05:12 Hct 40.7 % (37.0-47.0) 06/06/22 05:12 MCV 88.3 fl (81-99) 06/06/22 05:12 MCH 29.3 pg (28.0-34.0) 06/06/22 05:12 MCHC 33.2 g/dL (30.0-36.0) 06/06/22 05:12 RDW 14.3 % (12.1-15.1) 06/06/22 05:12 Plt Count 166 10^3/cmm (130-400) 06/06/22 05:12 MPV 12.0 fL (7.4-10.4) H 06/06/22 05:12 Neut % (Auto) 82.0 % 06/06/22 05:12 Lymph % (Auto) 7.8 % 06/06/22 05:12 [place] % (Auto) 8.2 % 06/06/22 05:12 Eos % (Auto) 0.1 % 06/06/22 05:12 Baso % (Auto) 0.3 % 06/06/22 05:12 Neut # (Auto) 9.58 10^3/uL (1.8-7.7) H 06/06/22 05:12 Lymph # (Auto) 0.9 10^3/uL (0.8-4.8) 06/06/22 05:12 [place] # (Auto) 1.0 10^3/uL (0.2-0.9) H 06/06/22 05:12 Eos # (Auto) 0.0 10^3/uL (0.0-0.8) 06/06/22 05:12 Baso # (Auto) 0.0 10^3/uL (0.0-0.1) 06/06/22 05:12 Nucleated RBC % (auto) 0 % 06/06/22 05:12 Nucleated RBCs # 0.0 /100WBC 06/06/22 05:12 Sodium 126 mmol/L (136-145) L 06/06/22 06:25 Potassium 3.8 mmol/L (3.5-5.1) 06/06/22 06:25 Chloride 89 mmol/L (98-107) L 06/06/22 06:25 Carbon Dioxide 27 mmol/L (22-29) 06/06/22 06:25 Anion Gap 13.8 (5-19) 06/06/22 06:25 BUN 25 mg/dL (8-23) H 06/06/22 06:25 Creatinine 1.0 mg/dL (0.5-0.9) H 06/06/22 06:25 GFR Calculation 56.0 mL/min (90-130) L 06/06/22 06:25 Glucose 103 mg/dL (65-115) 06/06/22 06:25 Calculated Osmolality 267 mOsm/kg (285-295) L 06/06/22 06:25 Lactic Acid 1.2 mmol/L (0.5-2.2) 06/06/22 05:40 Calcium 8.8 mg/dL (8.5-10.5) 06/06/22 06:25 Total Bilirubin 1.1 mg/dL (0.15-1.2) 06/06/22 06:25 AST 45 U/L (0-32) H 06/06/22 06:25 ALT 19 U/L (0-33) 06/06/22 06:25 Alkaline Phosphatase 70 U/L (35-105) 06/06/22 06:25 C-Reactive Protein 203.6 mg/L (0.0-4.9) H 06/06/22 06:25 Total Protein 7.2 g/dL (6.6-8.7) 06/06/22 06:25 Albumin 3.2 g/dL (3.5-5.2) L 06/06/22 06:25 Globulin 4.0 g/dL (1.3-4.6) 06/06/22 06:25 Discharge Plan Discharge Patient Disposition: Admitted As Inpatient Clinical Impression: Cellulitis, Atrial fibrillation, History of coronary artery bypass graft, Type 2 diabetes mellitus, Atherosclerosis of coronary artery of [place] heart without angina pectoris, Essential hypertension, CHF (congestive heart failure), Zoster Condition: Stable Prescriptions: No Action aripiprazole 5 mg tablet 5 mg PO BEDTIME@20 furosemide 40 mg tablet 60 mg PO DAILY Qty: 45 3RF diltiazem HCl 180 mg capsule,extended release 24hr 180 mg PO DAILY@08 hydrocortisone 2.5 % Cream 1 applic TOPICAL BID PRN (Reason: unknown) nystatin 100,000 unit/gram powder 1 applic TOPICAL BID@08,20 diclofenac sodium 1 % Gel See Rx Instructions .ROUTE .COMPLEX Rx Instructions: apply topically to affected area as directed twice a day as needed sotalol 80 mg tablet 80 mg PO BID@08,20 levothyroxine [Euthyrox] 150 mcg tablet 150 mcg PO DAILY@06 sertraline 50 mg tablet 50 mg PO DAILY@08 ferrous gluconate 324 mg (37.5 mg iron) Tablet 324 mg PO BIDWM Qty: 60 0RF Spiriva with HandiHaler 18 mcg capsule, w/inhalation device 1 cap inhalation DAILY Qty: 30 0RF Rx Instructions: puncture 1 cap using device; one dose = 2 inhalations trazodone 100 mg tablet 150 mg PO BEDTIME@20 Qty: 30 0RF aspirin 81 mg tablet,delayed release (DR/EC) 81 mg PO DAILY lorazepam 1 mg Tablet 1 mg PO BID PRN (Reason: Anxiety) potassium chloride 8 mEq tablet extended release 8 meq PO BID spironolactone 25 mg Tablet 25 mg PO DAILY Referrals: Zachary Trent MD [Primary Care Provider] - Sign Out Sign Out Data: Patient Sign Out occurred on 06/06/22 at 05:49. Patient's care was discussed, and care was transferred from to Jean Claude De La Fuente DO. Coding Level of Care Code ED Catalyst Operator Chief for Patg Fwd Exam Comprehensive
--- NOTE | 2022-06-06 05:29 | USR_ITS ---
PROCEDURE INFORMATION: Exam: US Duplex Left Lower Extremity Veins, Limited Exam date and time: 06/06/2022 5:43 AM Age: 62 years old Clinical indication: Swelling (edema) of limb; Lower extremity, left; Additional info: Leg swelling TECHNIQUE: Imaging protocol: Real-time Duplex ultrasound of the Left Lower Extremity with 2-D pandey scale, color Doppler flow and spectral waveform analysis with image documentation. Limited exam focused on the left lower extremity veins. COMPARISON: CT femur LT w con [id number] 02/08/2021 1:15 PM FINDINGS: Left deep veins: The common femoral, femoral, proximal profunda femoral, popliteal and visualized calf/posterior tibial veins are patent without thrombus. Normal Doppler waveforms. Normal compressibility and/or augmentation response. Left superficial veins: Unremarkable. Saphenofemoral junction is patent without thrombus. Soft tissues: Enlarged left inguinal lymph nodes are seen, the largest measuring 0.9 x 1.8 cm. Moderate lower extremity subcutaneous edema is seen. US/CV venous duplex [facility] [id number] IMPRESSION: 1. No evidence of deep vein thrombosis. 2. Moderate lower extremity subcutaneous edema. Some enlarged left inguinal lymph nodes.
[2022-06-06 05:55] LABS: Basophils % 0.3 %; Eosinophils % 0.1 %; Hematocrit 40.7 % (37.0-47.0); Hemoglobin 13.5 g/dL (11.5-15.3); Lymphocytes # 0.9 10^3/uL (0.8-4.8); Lymphocytes % 7.8 %; Mean Corpuscular HGB Conc 33.2 g/dL (30.0-36.0); Mean Corpuscular Hemoglobin 29.3 pg (28.0-34.0); Mean Corpuscular Volume 88.3 fl (81-99); Monocytes % 8.2 %; Neutrophils # 9.58 10^3/uL (1.8-7.7); Nucleated Red Blood Cells % 0 %; Platelet Count 166 10^3/cmm (130-400); Red Blood Count 4.61 10^6/uL (4.1-5.3); Red Cell Distribution Width 14.3 % (12.1-15.1); White Blood Count 11.7 10^3/uL (4.0-10.0)
[2022-06-06 06:57] LABS: Alanine Aminotransferase 19 U/L (0-33); Albumin Level 3.2 g/dL (3.5-5.2); Alkaline Phosphatase 70 U/L (35-105); Anion Gap 13.8 (5-19); Aspartate Amino Transferase 45 U/L (0-32); Blood Urea Nitrogen 25 mg/dL (8-23); C Reactive Protein 203.6 mg/L (0.0-4.9); Calcium 8.8 mg/dL (8.5-10.5); Carbon Dioxide 27 mmol/L (22-29); Chloride 89 mmol/L (98-107); Glucose 103 mg/dL (65-115); Osmolality Calculated 267 mOsm/kg (285-295); Potassium 3.8 mmol/L (3.5-5.1); Sodium 126 mmol/L (136-145); Total Bilirubin 1.1 mg/dL (0.15-1.2); Total Protein 7.2 g/dL (6.6-8.7)
[2022-06-06 07:07] LABS: Lactic Sepsis W/Reflex 1.2 mmol/L (0.5-2.2)
[2022-06-06] MEDS: vancomycin 1,000 MG in sodium chloride 0.9% 250 ML 250 MG IV ×2 (07:56→14:19)
--- NOTE | 2022-06-06 08:12 | XR_ITS ---
WS: [id number] Exam: XR tibia fibula LT 2V [id number] Date/Time of Exam: 06/06/2022 8:14 AM Reason For Exam: cellulitis No acute fracture or bone destruction. Diffuse soft tissue edema of the lower leg. Articular relation ships at the knee and ankle appear normal. Mild degenerative changes of the knee. XR/XR tibia fibula LT 2V [id number] IMPRESSION: 1. No fracture or bone destruction. 2. Diffuse soft tissue edema of the lower leg.
--- NOTE | 2022-06-06 09:15 | P.HP_ITS ---
Providers/Chief Complaint Primary Care Provider: Zachary Trent Chief Complaint: LLE Swellling History of Present Illness Ivette Wheeler is a 62 year old female has medical history of DVT, not on anticoagulation, history of atrial fibrillation, not on anticoagulation, history of significant subdural hematoma requiring bur hole procedure, history of CABG, type 2 diabetes mellitus, hypertension, bipolar disorder, presents [facility] as she has had left lower extremity erythema, swelling, tenderness over the last day. She is alert oriented x3, following all commands, she tells me that she lives at [place], she has had the swelling for the last few days, but has not really told anyone. She tells me now that is quite red hot painful, and the area of erythema is streaking up her thigh. No fevers, chills, nausea, vomiting. Review of Systems Const: Denies: fever(s) Card: Denies: chest pain Resp: Denies: dyspnea GI: Denies: abdominal pain Skin/Breast: Reports: rash Medications/Allergies Home Medications Medication Instructions Recorded Confirmed Last Taken Type diclofenac sodium 1 % topical gel See Rx Instructions .Route .COMPLEX 07/20/21 06/06/22 05/16/22 History diltiazem HCl 180 mg 180 mg PO DAILY@08 07/20/21 06/06/22 05/16/22 History capsule,extended release 24 hr hydrocortisone 2.5 % topical cream 1 applic topical BID PRN unknown 07/20/21 06/06/22 1 Year Ago History ~05/16/21 levothyroxine 150 mcg tablet 150 mcg PO DAILY@06 07/20/21 06/06/22 05/16/22 History (Euthyrox) nystatin 100,000 unit/gram topical 1 applic topical BID@ for rash 07/20/21 06/06/22 05/16/22 History powder sertraline 50 mg tablet 50 mg PO DAILY@08 07/20/21 06/06/22 05/16/22 History sotalol 80 mg tablet 80 mg PO BID@07/20/21 06/06/22 05/16/22 History ferrous gluconate 324 mg (37.5 mg 324 mg PO BIDWM #60 tabs 07/30/21 06/06/22 05/16/22 Rx iron) tablet tiotropium bromide 18 mcg capsule 1 cap inhalation DAILY #30 07/30/21 06/06/22 05/16/22 Rx with inhalation device (Spiriva inhalations with HandiHaler) trazodone 100 mg tablet 150 mg PO BEDTIME@20 #30 tabs 07/30/21 06/06/22 05/16/22 Rx aripiprazole 5 mg tablet 5 mg PO BEDTIME@20 09/26/21 06/06/22 05/15/22 History furosemide 40 mg tablet 60 mg PO DAILY #45 tabs 09/26/21 06/06/22 05/16/22 Rx aspirin 81 mg tablet,delayed 81 mg PO DAILY 05/16/22 06/06/22 05/16/22 History release lorazepam 1 mg tablet 1 mg PO BID PRN Anxiety 05/16/22 06/06/22 05/16/22 History potassium chloride 8 mEq 8 meq PO BID 05/16/22 06/06/22 05/16/22 History tablet,extended release spironolactone 25 mg tablet 25 mg PO DAILY 05/16/22 06/06/22 05/16/22 History Allergies Allergy/AdvReac Type Severity Reaction Status Date / Time atorvastatin [From Lipitor] Allergy Unknown Verified 06/06/22 05:17 lisinopril Allergy Unknown Verified 06/06/22 05:17 PFSH Acute PFSH: Medical History Acute psychosis ASHD (arteriosclerotic heart disease) Atherosclerosis of coronary artery of [place] heart without angina pectoris Atrial fibrillation Bilateral lower extremity edema Bipolar disorder in partial remission The patient denies history of euphoria, decreased need for sleep, increase in energy, racing thoughts, pressured speech, spending sprees etc. Therefore this diagnosis is removed. Cellulitis CHF (congestive heart failure) Chronic anticoagulation Eliquis COVID-19 January Dyslipidemia Essential hypertension Hx of deep venous thrombosis Major depression in partial remission Mitral valve regurgitation Pulmonary hypertension Right-sided heart failure Subdural hematoma Tricuspid valve regurgitation Type 2 diabetes mellitus Surgical History History of coronary artery bypass graft 2004 History of coronary artery stent placement History of total vaginal hysterectomy History of tubal ligation S/P evacuation of subdural hematoma Status post colonoscopy Family History Other CAD (coronary artery disease) Diabetes Hypertension Social History Smoking and tobacco status: never smoked Alcohol intake: current Alcohol intake frequency: holidays/special occasions on ly Household members: significant other Marital status: Single Vitals/I&O/Wt Last Vital Signs Temp 98.1 F 06/06/22 05:12 Pulse 113 H 06/06/22 06:45 Resp 18 06/06/22 06:45 BP 106/69 06/06/22 06:45 Pulse Ox 95 06/06/22 06:45 O2 Del Method 06/06/22 06:45 Weight last 48 hrs Weight 76.204 kg Physical Exam Const: COMMON NORMALS: no acute distress and patient oriented x3 HENMT: COMMON NORMALS: normocephalic HEAD & SCALP: normocephalic Eye: COMMON NORMALS: Equal, round and reactive pupils present Resp: COMMON NORMALS: normal respiratory effort, No retractions, No use of accessory muscles and clear to auscultation bilaterally AUSCULTATION: clear to auscultation bilaterally Cardio: COMMON NORMALS: regular rate, regular rhythm, S1 normal heart sound present and S2 normal heart sound present RATE: regular rate RHYTHM: regular rhythm HEART SOUNDS: S1 normal heart sound present and S2 normal heart sound present GI: COMMON NORMALS: Normal to inspection, nondistended, normoactive bowel sounds present, Soft to palpation, non-tender, no masses and no bruits PALPATION: Yes Soft to palpation Back/Pelvis: OTHER: Left lower extremity, dense erythema, swelling, warmth, tenderness, extending from the distal tibial fibula, to mid [place] Extremity: COMMON NORMALS: no calf tenderness and no pedal edema Neuro: COMMON NORMALS: patient oriented x3 Psych: COMMON NORMALS: mental status grossly normal Data 06/06/22 05:12 06/06/22 06:25 Micro: Microbiology 06/06/22 08:32 Blood Culture - Preliminary Blood SPECIMEN COLLECTED 06/06/22 07:40 Blood Culture - Preliminary Blood SPECIMEN COLLECTED A&P Assessment and plan (1) Cellulitis: (2) History of coronary artery bypass graft: (3) Type 2 diabetes mellitus: (4) Hx of deep venous thrombosis: (5) Essential hypertension: (6) Dyslipidemia: (7) Bipolar disorder in partial remission: (8) Atrial fibrillation: (9) Right-sided heart failure: (10) PHILIPP (obstructive sleep apnea): (11) CHF (congestive heart failure): (12) Subdural hematoma: Plan Cellulitis -Quite dense, seems a lot like erythrasma -Nonetheless we will do blood cultures, ESR, x-ray tib-fib -Vancomycin, Zosyn -Monitor clinically -Full code -Aspirin for DVT prophylaxis SCDs, anticoagulation relatively contraindicated given history of subdural hematoma requiring evacuation Hyponatremia, monitor hold off on fluids CAD Type 2 diabetes mellitus, low-dose sliding scale, A1c Atrial fibrillation, continue home medications Hypothyroidism, continue home medications Attestations Medical Necessity Statement*: Patient requires hospitalization, inpatient, greater than 2 midnights, for cellulitis, erythrasma Coding Level of Care Code Acute Transcription Coordinator for g Fwd Diagnoses Cellulitis L03.90 History of coronary artery bypass graft Z95.1 Type 2 diabetes mellitus E11.9 Hx of deep venous thrombosis Z86.718 Essential hypertension I10 Dyslipidemia E78.5 Bipolar disorder in partial remission F31.70 Atrial fibrillation I48.91 Right-sided heart failure I50.810 PHILIPP (obstructive sleep apnea) G47.33 CHF (congestive heart failure) I50.9 Subdural hematoma S06.5XAA
[2022-06-06 09:27] LABS: Erythrocyte Sedimentation Rate 38 mm/hr (0-15)
[2022-06-06 09:33] LABS: NT Pro B Type Natriuretic Pept 2508 pg/mL (0-125); Procalcitonin 0.42 ng/mL (0-0.5)
--- NOTE | 2022-06-06 11:18 | PC.PHAR ---
PT IS FROM [facility] [phone] SANCHEZ FROM [place] STATES THE PT TAKES THE MEDICATIONS ENTERED
[2022-06-06] MEDS: pantoprazole 40 mg SDV IVP (14:18)
[2022-06-06] MEDS: spironolactone 25 mg Tablet PO (14:18)
[2022-06-06] MEDS: aspirin 81 mg EC Tablet PO (14:18)
[2022-06-06] MEDS: piperacillin-tazobactam 3.375 GM in sodium chloride 0.9% (plus) 50 ML IV ×2 (14:18→20:35)
[2022-06-06 14:42] LABS: Chol HDL Ratio 7.79 mg/dL (0.0-4.40); Cholesterol 109 mg/dL (0-200); HDL Cholesterol 14 mg/dL (60-100); LDL Cholesterol Calculated 66 mg/dL (50-129); LDL HDL Ratio 4.71 RATIO (0.00-3.22); Triglycerides 145 mg/dL (0-150)
[2022-06-06] MEDS: ipratropium 0.5 mg/2.5 mL Neb INHALATION ×2 (15:01→22:25)
[2022-06-06 15:13] LABS: Estmated Average Glucose 103; Hemoglobin A1C 5.2 % (4.0-6.0)
[2022-06-06 17:02] LABS: Glucose Point of Care 112 mg/dL (70-110)
[2022-06-06] MEDS: ferrous gluconate 324 mg Tablet PO (17:56)
[2022-06-06] MEDS: trazodone 100 mg Tablet 150 MG PO (20:35)
[2022-06-06] MEDS: ARIPiprazole 10 mg Tablet 5 MG PO (20:35)
[2022-06-06] MEDS: sotalol 80 mg Tablet PO (20:35)
[2022-06-06 21:38] LABS: Glucose Point of Care 139 mg/dL (70-110)
[2022-06-06 23:44] LABS: Add Urine Microscopic? YES; Bilirubin Urine Neg (Negative); Blood Urine 2+ (Negative); Glucose Urine UA Norm (Normal); Ketones Urine Negative (Negative); Leukocyte Esterase Urine Negative (Negative); Nitrate Urine Negative (Negative); Protein Urine 1+ (Negative); Urine Appearance SL Hazy (CLEAR); Urine Color Yellow (Yellow); Urobilinogen Urine 4 mg/dL (Negative); pH Urine 5 (5-7)
[2022-06-06 23:45] LABS: Add Urine Culture? No; Amorphous Sediment Urine 2+ /hpf; Bacteria Urine 1+ /hpf; Hyaline Casts Urine 0-4 /lpf; Squamous Epithelial Cell Urine 15-25 /hpf (0-5)
[2022-06-07] VITALS (16 sets, daily range): BP systolic 96–119; BP diastolic 60–77; PULSE 71–126; RESP 16–22; TEMP 36.6–36.9; O2SAT 93–97
[2022-06-07] MEDS: levothyroxine 150 mcg Tablet PO (04:58)
[2022-06-07] MEDS: piperacillin-tazobactam 3.375 GM in sodium chloride 0.9% (plus) 50 ML IV ×3 (04:58→21:51)
[2022-06-07 06:32] LABS: Basophils # 0.1 10^3/uL (0.0-0.1); Basophils % 0.5 %; Eosinophils % 0.4 %; Hematocrit 37.1 % (37.0-47.0); Hemoglobin 12.4 g/dL (11.5-15.3); Lymphocytes # 0.7 10^3/uL (0.8-4.8); Lymphocytes % 6.6 %; Mean Corpuscular HGB Conc 33.4 g/dL (30.0-36.0); Mean Corpuscular Hemoglobin 29.3 pg (28.0-34.0); Mean Corpuscular Volume 87.7 fl (81-99); Mean Platelet Volume 11.2 fL (7.4-10.4); Monocytes # 1.2 10^3/uL (0.2-0.9); Monocytes % 11.4 %; Neutrophils # 8.51 10^3/uL (1.8-7.7); Neutrophils % 79.4 %; Nucleated Red Blood Cells % 0 %; Platelet Count 133 10^3/cmm (130-400); Red Blood Count 4.23 10^6/uL (4.1-5.3); Red Cell Distribution Width 14.4 % (12.1-15.1); White Blood Count 10.7 10^3/uL (4.0-10.0)
[2022-06-07 06:42] LABS: Glucose Point of Care 119 mg/dL (70-110)
[2022-06-07 06:49] LABS: Anion Gap 12.9 (5-19); Blood Urea Nitrogen 15 mg/dL (8-23); Calcium 8.8 mg/dL (8.5-10.5); Carbon Dioxide 26 mmol/L (22-29); Chloride 90 mmol/L (98-107); Creatinine Clr Calc Pharmacy 117.0646; Glomerular Filtration Rate 124.6 mL/min (90-130); Glucose 116 mg/dL (65-115); Osmolality Calculated 262 mOsm/kg (285-295); Potassium 3.9 mmol/L (3.5-5.1); Sodium 125 mmol/L (136-145)
[2022-06-07] MEDS: ipratropium 0.5 mg/2.5 mL Neb INHALATION ×4 (07:50→23:04)
[2022-06-07] MEDS: sertraline 50 mg Tablet PO (08:19)
[2022-06-07] MEDS: dilTIAZem ER (24HR) 180 mg Capsule PO (08:19)
[2022-06-07] MEDS: nystatin powder 15 gm Btl 1 APPLIC TOPICAL (08:19)
[2022-06-07] MEDS: sotalol 80 mg Tablet PO ×2 (08:19→19:32)
[2022-06-07] MEDS: ferrous gluconate 324 mg Tablet PO ×2 (08:19→18:05)
[2022-06-07] MEDS: aspirin 81 mg EC Tablet PO (08:21)
[2022-06-07] MEDS: spironolactone 25 mg Tablet PO (08:21)
--- NOTE | 2022-06-07 11:11 | PC.CHAP ---
Pastoral Care Encounter/Spiritual Assessment Type of Contact [] Declined care center manager visit [] Patient/Family/Request visit [] Outpatient visit [] Follow-up visit [] Physician referral [] Code/Alert [x] Routine visit [] Staff referral [] Actively dying [] Patient sleeping [] Family support [] [] Out of room [] Palliative care [] [] Receiving care in room [] Pre-surgical visit [] Trauma [] Long length of stay [] ICU visit [] Other: Relational/Emotional Strength [] Patient feels connected with others/family/visitors/staff [] Distress [] Loneliness/isolation [] Abandonment Spirituality of Patient [x] Person of Flaca [] Attends Evangelical of their Flaca [x] Believes in Prayer [] Reads Bible or Mormonism materials [] There are Spiritual issues to be addressed Dental Ceramist Helper Interventions [x]` Prayer [] Active listening [] Non-anxious presence [] Spiritual/emotional support [] Crisis/trauma care [] Spiritual counseling [] Bereavement support [] Provided bereavement packet [] Provided Bible/devotional materials [] Provided toy/stuffed animal, coloring book to patient or family member [] Provided Communion [] Anointing/[place] [] Salvation [x] Completed spiritual assessment [] Other: Impact on Illness or Injury [] Angry [] Fearful [] Anxious [] Often cries [] Exhaustion [] Unable to work [] Unable to attend faith [] Unable to walk/stand [] Unable to read [] Unable to drive [] Unable to eat/drink [] Unable to sleep [] Unable to be with family [] Patient intubated [] Other: Summary Time spent with patient 5 min
[2022-06-07 11:19] LABS: Glucose Point of Care 118 mg/dL (70-110)
[2022-06-07] MEDS: sodium chloride 1 gm Tablet PO ×2 (12:03→18:05)
[2022-06-07] MEDS: vancomycin 1,000 MG in sodium chloride 0.9% 250 ML 250 MG IV (12:04)
--- NOTE | 2022-06-07 14:29 | P.PN_ITS ---
Subjective Subjective: Patient was seen this morning, she tells me that she is feeling a lot better her leg swelling has improved no fevers, no chills Vitals/I&O/Wt Last Vital Signs Temp 97.8 F 06/07/22 11:47 Pulse 95 06/07/22 11:58 Resp 18 06/07/22 11:55 BP 104/64 06/07/22 11:47 Pulse Ox 95 06/07/22 11:55 O2 Del Method 06/07/22 11:55 O2 Flow Rate 2 06/07/22 11:55 06/06/22 06/07/22 06/07/22 22:59 06:59 14:59 Intake Total 540 / 790 1930 / 2720 780 / 780 Output Total 200 / 200 550 / 750 Balance 340 / 590 1380 / 1970 780 / 780 Weight last 48 hrs Weight 78.925 kg Weight 76.204 kg Physical Exam Const: COMMON NORMALS: no acute distress and patient oriented x3 Resp: COMMON NORMALS: normal respiratory effort, No retractions, No use of accessory muscles and clear to auscultation bilaterally AUSCULTATION: clear to auscultation bilaterally Cardio: COMMON NORMALS: regular rate, regular rhythm, S1 normal heart sound present and S2 normal heart sound present RATE: regular rate RHYTHM: regular rhythm HEART SOUNDS: S1 normal heart sound present and S2 normal heart sound present GI: COMMON NORMALS: Normal to inspection, nondistended, normoactive bowel sounds present, non-tender and no masses Neuro: COMMON NORMALS: patient oriented x3 Psych: COMMON NORMALS: mental status grossly normal Skin: NARRATIVE SKIN EXAM: Left leg, below the level of the phelps, erythema, swelling, tenderness Data 06/07/22 06:08 06/07/22 06:08 Micro: Microbiology 06/06/22 08:32 Blood Culture - Preliminary Blood NEGATIVE TO DATE 06/06/22 07:40 Blood Culture - Preliminary Blood NEGATIVE TO DATE A&P Assessment and plan (1) Cellulitis: (2) History of coronary artery bypass graft: (3) Type 2 diabetes mellitus: (4) Hx of deep venous thrombosis: (5) Essential hypertension: (6) Dyslipidemia: (7) Bipolar disorder in partial remission: (8) Atrial fibrillation: (9) Right-sided heart failure: (10) PHILIPP (obstructive sleep apnea): (11) CHF (congestive heart failure): (12) Subdural hematoma: Plan Cellulitis -Quite dense, seems a lot like erythrasma -Nonetheless we will do blood cultures, ESR 38 -Vancomycin, Zosyn -Monitor clinically -Full code -Aspirin for DVT prophylaxis SCDs, anticoagulation relatively contraindicated given history of subdural hematoma requiring evacuation Hyponatremia, monitor hold off on fluids CAD Type 2 diabetes mellitus, low-dose sliding scale, A1c Atrial fibrillation, continue home medications Hypothyroidism, continue home medications Attestations Medical Necessity Statement*: Patient requires hospitalization for cellulitis Coding Level of Care Code Acute [place] Management Professor for [facility] Fwd Diagnoses Cellulitis L03.90 History of coronary artery bypass graft Z95.1 Type 2 diabetes mellitus E11.9 Hx of deep venous thrombosis Z86.718 Essential hypertension I10 Dyslipidemia E78.5 Bipolar disorder in partial remission F31.70 Atrial fibrillation I48.91 Right-sided heart failure I50.810 PHILIPP (obstructive sleep apnea) G47.33 CHF (congestive heart failure) I50.9 Subdural hematoma S06.5XAA
[2022-06-07] MEDS: pantoprazole 40 mg SDV IVP (15:19)
[2022-06-07 16:55] LABS: Glucose Point of Care 143 mg/dL (70-110)
[2022-06-07] MEDS: LORazepam 1 mg Tablet PO (19:19)
[2022-06-07] MEDS: trazodone 100 mg Tablet 150 MG PO (19:32)
[2022-06-07] MEDS: ARIPiprazole 10 mg Tablet 5 MG PO (19:32)
[2022-06-07 21:07] LABS: Glucose Point of Care 115 mg/dL (70-110)
[2022-06-08] VITALS (8 sets, daily range): BP systolic 92–108; BP diastolic 57–71; PULSE 87–108; RESP 15–20; TEMP 36.3–36.4; O2SAT 98–99
--- NOTE | 2022-06-08 00:29 | PC.NURSE ---
Addendum entered by Sapna Guerra RN 06/08/22 00:48: Cox ordered. Original Note: Patient attempt to void in bedside commode and unable to void. Bladder scan shows [address] Hand notified.
[2022-06-08 01:14] LABS: Basophils % 0.3 %; Eosinophils # 0.1 10^3/uL (0.0-0.8); Eosinophils % 0.6 %; Hemoglobin 14.1 g/dL (11.5-15.3); Lymphocytes % 6.9 %; Mean Corpuscular HGB Conc 32.8 g/dL (30.0-36.0); Mean Corpuscular Volume 88.3 fl (81-99); Mean Platelet Volume 10.6 fL (7.4-10.4); Monocytes # 1.4 10^3/uL (0.2-0.9); Monocytes % 9.8 %; Neutrophils # 11.74 10^3/uL (1.8-7.7); Neutrophils % 81.2 %; Nucleated Red Blood Cells % 0 %; Platelet Count 165 10^3/cmm (130-400); Red Blood Count 4.87 10^6/uL (4.1-5.3); Red Cell Distribution Width 14.3 % (12.1-15.1); White Blood Count 14.5 10^3/uL (4.0-10.0)
[2022-06-08 01:33] LABS: Alanine Aminotransferase 16 U/L (0-33); Albumin Level 3.3 g/dL (3.5-5.2); Alkaline Phosphatase 84 U/L (35-105); Anion Gap 16.7 (5-19); Aspartate Amino Transferase 28 U/L (0-32); Blood Urea Nitrogen 17 mg/dL (8-23); Carbon Dioxide 26 mmol/L (22-29); Chloride 94 mmol/L (98-107); Creatinine Clr Calc Pharmacy 83.6176; Glomerular Filtration Rate 84.5 mL/min (90-130); Glucose 104 mg/dL (65-115); Magnesium 2.2 mg/dL (1.7-2.3); Osmolality Calculated 278 mOsm/kg (285-295); Potassium 3.7 mmol/L (3.5-5.1); Sodium 133 mmol/L (136-145); Total Bilirubin 1.1 mg/dL (0.15-1.2); Total Protein 7.3 g/dL (6.6-8.7)
[2022-06-08 01:34] LABS: Vancomycin Trough 7.5 ug/mL (10-15)
[2022-06-08] MEDS: vancomycin 1,000 MG in sodium chloride 0.9% 250 ML 250 MG IV ×2 (02:02→13:52)
--- NOTE | 2022-06-08 02:40 | PC.NURSE ---
100 ml urine output in muniz catheter. Bladder scan shows 320 ml. Patient repositioned and muniz advanced. Will monitor.
--- NOTE | 2022-06-08 03:23 | PC.NURSE ---
Addendum entered by Sapna Guerra RN 06/08/22 04:07: Manual irrigation performed x1. Original Note: Cox not draining urine. Manual irrigation ordered.
[2022-06-08] MEDS: levothyroxine 150 mcg Tablet PO (04:27)
[2022-06-08] MEDS: ondansetron 2 mg/ML SDV 2 mL 4 MG IVP (04:27)
[2022-06-08] MEDS: piperacillin-tazobactam 3.375 GM in sodium chloride 0.9% (plus) 50 ML IV (04:27)
--- NOTE | 2022-06-08 04:31 | PC.NURSE ---
Patient c/o nausea. Patient states I threw up twice yesterday because of my hernia. I wish they would fix my hernia. I have had it for a long time. PRN Pablo given.
--- NOTE | 2022-06-08 06:16 | PC.NURSE ---
Cox bag has 100 ml in it. Bladder scan shows 449 ml. 16 F replaced with 18 F and manually irrigated x2. Will monitor.
[2022-06-08 07:02] LABS: Glucose Point of Care 104 mg/dL (70-110)
[2022-06-08] MEDS: ipratropium 0.5 mg/2.5 mL Neb INHALATION ×2 (07:18→11:13)
[2022-06-08] MEDS: ferrous gluconate 324 mg Tablet PO (09:01)
[2022-06-08] MEDS: spironolactone 25 mg Tablet PO (09:01)
[2022-06-08] MEDS: sodium chloride 1 gm Tablet PO (09:01)
[2022-06-08] MEDS: dilTIAZem ER (24HR) 180 mg Capsule PO (09:01)
[2022-06-08] MEDS: sotalol 80 mg Tablet PO (09:02)
[2022-06-08] MEDS: aspirin 81 mg EC Tablet PO (09:02)
[2022-06-08] MEDS: nystatin powder 15 gm Btl 1 APPLIC TOPICAL (09:02)
[2022-06-08] MEDS: sertraline 50 mg Tablet PO (09:04)
--- NOTE | 2022-06-08 09:43 | USR_ITS ---
PROCEDURE INFORMATION: Exam: US Abdomen; Limited Exam date and time: 06/08/2022 12:58 PM Age: 62 years old Clinical indication: Device placement. Urinary device. Urinary bladder distention. Urinary retention. TECHNIQUE: Imaging protocol: Real time ultrasound of the abdomen with image documentation. Limited exam focused on the region of clinical interest. COMPARISON: US paracentesis rosalind stephen [id number] 05/16/2022 11:19 AM FINDINGS: Intraperitoneal space: Ascites is seen throughout the abdomen. US/US bladder [id number] IMPRESSION: Ascites is seen throughout the abdomen.
--- NOTE | 2022-06-08 09:56 | CTR_ITS ---
PROCEDURE INFORMATION: Exam: CT Left Lower Extremity Without Contrast; Lower Leg Exam date and time: 06/08/2022 10:30 AM Age: 62 years old Clinical indication: Swelling, leg or foot. Erythrasma? TECHNIQUE: Imaging protocol: CT of the Left lower extremity without contrast was performed. Exam focused on the lower leg. Radiation optimization: All CT scans at this facility use at least one of these dose optimization techniques: automated exposure control; mA and/or kV adjustment per patient size (includes targeted exams where dose is matched to clinical indication); or iterative reconstruction. COMPARISON: CR XR tibia fibula LT 2V [id number] 06/06/2022 9:32 AM RADIATION DOSE METRICS: Total DLP (mGy-cm): 592.12 FINDINGS: Bones/joints: Mild osteoarthritis at the knee. No acute osseous destruction is seen to suggest osteomyelitis. Trace knee joint effusion. Plantar and posterior calcaneal spurs are seen. Soft tissues: There is extensive subcutaneous edema involving the distal thigh and lower leg/ankle with skin thickening; query cellulitis. No soft tissue gas is seen to suggest necrotizing fasciitis. CT/CT lower leg LT wo con* [id number] IMPRESSION: 1. Extensive subcutaneous edema involving the distal thigh and lower leg/ankle with skin thickening; query cellulitis. No soft tissue gas is seen to suggest necrotizing fasciitis. No gross evidence. No soft tissue gas to suggest necrotizing fasciitis. 2. Mild osteoarthritis at the knee with trace knee joint effusion. 3. Plantar and posterior calcaneal spurs are seen.
--- NOTE | 2022-06-08 09:56 | CTR_ITS ---
PROCEDURE INFORMATION: Exam: CT Abdomen And Pelvis With Contrast Exam date and time: 06/08/2022 10:37 AM Age: 62 years old Clinical indication: Incarcerated abdominal wall hernia? TECHNIQUE: Imaging protocol: Computed tomography of the abdomen and pelvis with contrast. Radiation optimization: All CT scans at this facility use at least one of these dose optimization techniques: automated exposure control; mA and/or kV adjustment per patient size (includes targeted exams where dose is matched to clinical indication); or iterative reconstruction. Contrast material: OMNI 350; Contrast volume: 100 ml; Contrast route: INTRAVENOUS (IV); COMPARISON: US paracentesis abd w [id number] 05/16/2022 11:19 AM RADIATION DOSE METRICS: Total DLP (mGy-cm): 804.54 FINDINGS: Lungs: There is bibasilar atelectasis. The heart is enlarged. Coronary arterial calcifications are noted. No pericardial effusion. No hiatal hernia. Liver: The liver is enlarged measuring 21 cm. A simple hepatic cyst measures 1 cm. Gallbladder and bile ducts: Cholelithiasis with mildly prominent gallbladder wall. Consider ultrasound if clinically warranted. Pancreas: The pancreas is unremarkable. Spleen: The spleen is enlarged measuring 16.2 cm. Adrenal glands: The adrenal glands are unremarkable. Kidneys and ureters: The kidneys are unremarkable. Stomach and bowel: Colonic diverticulosis without evidence of acute diverticulitis. Appendix: The appendix is not identified. Intraperitoneal space: No free intraperitoneal air is identified. Large ascites. Vasculature: No abdominal aortic aneurysm. Lymph nodes: No retroperitoneal lymphadenopathy. Urinary bladder: Cox catheter in place. The bladder is largely decompressed. Reproductive: Status post hysterectomy. Bones/joints: Median sternotomy wires are noted. Old left rib fractures. No acute fracture is identified. Soft tissues: There is an umbilical hernia containing fluid and a loop of small bowel; this may be incarcerated. No pneumatosis or free air is seen to suggest strangulation. There is marked dilatation of numerous more proximal small bowel loops compatible with associated obstruction. CT/CT abdomen pelvis w con* [id number] IMPRESSION: 1. Umbilical hernia containing fluid and a loop of small bowel; this may be incarcerated. No pneumatosis or free air is seen to suggest strangulation. There is marked dilatation of numerous more proximal small bowel loops compatible with associated obstruction. 2. Cholelithiasis with mildly prominent gallbladder wall. Consider ultrasound if clinically warranted. 3. Hepatosplenomegaly. 4. Large ascites. 5. Cardiomegaly with coronary artery disease. 6. Colonic diverticulosis without evidence of acute diverticulitis.
--- NOTE | 2022-06-08 10:26 | PC.NURSE ---
pt off floor to CT Scan via wheelchair.
[2022-06-08] MEDS: iohexol 350 mg/mL 500 mL Btl (per mL) IV (10:44)
[2022-06-08 11:13] LABS: Glucose Point of Care 113 mg/dL (70-110)
[2022-06-08 11:22] LABS: Lactate (Lactic Acid level) 1.3 mmol/L (0.5-2.2)
[2022-06-08] MEDS: sodium chloride 0.9% 1,000 ML 50 ML IV (11:22)
--- NOTE | 2022-06-08 11:47 | P.TS_ITS ---
Transfer Summary Providers Date of Admission: 06/06/22 07:44 Date of Discharge/Transfer: 06/08/22 Attending Provider at Admission: Hosea Garcia MD Attending Provider at Transfer: Hosea Garcia MD Primary Care Provider: Zachary Trent Transfer Plans: Anticipated date of transfer: 06/08/22 . Diagnoses at Discharge Discharge Diagnosis (1) Cellulitis: Status: Acute (2) History of coronary artery bypass graft: Status: Acute Permanent problem details: 2004 (3) Type 2 diabetes mellitus: Status: Acute (4) Hx of deep venous thrombosis: Status: Acute (5) Essential hypertension: Status: Acute (6) Dyslipidemia: Status: Acute (7) Bipolar disorder in partial remission: Status: Acute Permanent problem details: The patient denies history of euphoria, decreased need for sleep, increase in energy, racing thoughts, pressured speech, spending sprees etc. Therefore this diagnosis is removed. (8) Atrial fibrillation: Status: Acute (9) Right-sided heart failure: Status: Acute (10) PHILIPP (obstructive sleep apnea): Status: Suspected (11) CHF (congestive heart failure): Status: Acute (12) Subdural hematoma: Status: Acute Reason for Visit Reason for Visit [facility] Hospital Course Ivette Wheeler is a 62 year old female has medical history of DVT, not on anticoagulation, history of atrial fibrillation, not on anticoagulation, history of significant subdural hematoma requiring bur hole procedure, and evacuation, history of CABG, type 2 diabetes mellitus, hypertension, bipolar disorder, presents [facility] as she has had left lower extremity erythema, swelling, tenderness over the last day. Patient presents [facility] for left lower extremity cellulitis, erythrasma, managed with broad-spectrum antibiotic therapy, cultures so far have been unremarkable, no fevers, no chills, CT scan confirmed no evidence of underlying abscess or necrotizing fasciitis or bone involvement. On 06/08/2020, on examination she continues to have significant erythema, swelling, tenderness over the region, but she tells me that is improved, she does have 2+ pitting edema. Ultrasound was negative for for DVT. Continues to be on antibiotic therapy. Can consider adding oral erythromycin for the erythrasma. The morning of 06/09/2022, patient was examined early in the morning, she tells that the swelling has improved in the right leg, but but now she has severe abdominal pain, she tells me that the area of her umbilical hernia intermi ttently hurts. But today it is significantly painful, she feels nauseous, no vomiting, she tells me his right heart warm and she cannot get comfortable. On examination, umbilical hernia was abdominal hernia was examined, it is red hot warm, not reducible, no guarding, no rebound, rigidity, decreased bowel sounds. Lactate 1.3. 1. Umbilical hernia containing fluid and a loop of small bowel; this may be incarcerated. No pneumatosis or free air is seen to suggest strangulation. There is marked dilatation of numerous more proximal small bowel loops compatible with associated obstruction. 2. Cholelithiasis with mildly prominent gallbladder wall. Consider ultrasound if clinically warranted. 3. Hepatosplenomegaly. 4. Large ascites. 5. Cardiomegaly with coronary artery disease. 6. Colonic diverticulosis without evidence of acute diverticulitis. -Patient continues to have severe abdominal pain, is on broad-spectrum antibiotic therapy -We do not have general surgery coverage -We will keep her n.p.o. she did have breakfast -Continue IV fluids -Has not received any blood thinners is on SCDs -I have tried to reduce it multiple times, and I am not able to -She has been accepted at [facility] Will transfer to [facility] in [place], spoke to surgeon who is excepted she is going to 3 a I also spoke to patient's daughter she voiced understanding I also spoke to patient she is understandable and agreeable to proceed Physical Exam Const: COMMON NORMALS: no acute distress and patient oriented x3 Resp: COMMON NORMALS: normal respiratory effort, No retractions, No use of accessory muscles and clear to auscultation bilaterally AUSCULTATION: clear to auscultation bilaterally Cardio: COMMON NORMALS: regular rate, regular rhythm, S1 normal heart sound present and S2 normal heart sound present RATE: regular rate RHYTHM: regular rhythm HEART SOUNDS: S1 normal heart sound present and S2 normal heart sound present GI: OTHER: On abdominal exam, abdomen soft, distended, no guarding, no rigidity, umbilical hernia is red hot and warm, significant tenderness, nonreducible Extremity: COMMON NORMALS: no pedal edema Neuro: COMMON NORMALS: patient oriented x3 Psych: COMMON NORMALS: mental status grossly normal Urinary Catheter Management: Ocx: Cath Placed During This Visit: yes Reason for Continuing Indwelling Catheter: Acute Urinary Retention or Obstruction Urinary Catheter Date of Insertion: 06/08/22 Urinary Catheter Time of Insertion: 00:51 TS Data Studies Completed and Pending Pending at discharge Category Date Time Status Blood Culture Stat Lab 06/06/22 08:32 Results Complete Blood Count w/Auto AM LABS Lab 06/09/22 04:00 Ordered Complete Blood Count w/Auto AM LABS Lab 06/10/22 04:00 Ordered Comprehensive Metabolic Panel AM LABS Lab 06/09/22 04:00 Ordered Comprehensive Metabolic Panel AM LABS Lab 06/10/22 04:00 Ordered Magnesium AM LABS Lab 06/09/22 04:00 Ordered Magnesium AM LABS Lab 06/10/22 04:00 Ordered Phosphorus AM LABS Lab 06/09/22 04:00 Ordered Phosphorus AM LABS Lab 06/10/22 04:00 Ordered US bladder [id number] Routine Ultrasound 06/08/22 09:43 Ordered Labs from last 24 hours 06/08/22 06/08/22 06/08/22 11:08 10:10 06:39 WBC RBC Hgb Hct MCV MCH MCHC RDW Plt Count MPV Neut % (Auto) Lymph % (Auto) [place] % (Auto) Eos % (Auto) Baso % (Auto) Neut # (Auto) Lymph # (Auto) [place] # (Auto) Eos # (Auto) Baso # (Auto) Nucleated RBC % (auto) Nucleated RBCs # Sodium Potassium Chloride Carbon Dioxide Anion Gap BUN Creatinine GFR Calculation Glucose POC Glucose 113 H 104 Calculated Osmolality Lactate 1.3 Calcium Phosphorus Magnesium Total Bilirubin AST ALT Alkaline Phosphatase Total Protein Albumin Globulin Vancomycin Trough 06/08/22 06/08/22 06/08/22 01:00 01:00 01:00 WBC 14.5 H RBC 4.87 Hgb 14.1 Hct 43.0 MCV 88.3 MCH 29.0 MCHC 32.8 RDW 14.3 Plt Count 165 MPV 10.6 H Neut % (Auto) 81.2 Lymph % (Auto) 6.9 [place] % (Auto) 9.8 Eos % (Auto) 0.6 Baso % (Auto) 0.3 Neut # (Auto) 11.74 H Lymph # (Auto) 1.0 [place] # (Auto) 1.4 H Eos # (Auto) 0.1 Baso # (Auto) 0.0 Nucleated RBC % (auto) 0 Nucleated RBCs # 0.0 Sodium 133 L Potassium 3.7 Chloride 94 L Carbon Dioxide 26 Anion Gap 16.7 BUN 17 Creatinine 0.7 GFR Calculation 84.5 L Glucose 104 POC Glucose Calculated Osmolality 278 L Lactate Calcium 9.0 Phosphorus 4.0 Magnesium 2.2 Total Bilirubin 1.1 AST 28 ALT 16 Alkaline Phosphatase 84 Total Protein 7.3 Albumin 3.3 L Globulin 4.0 Vancomycin Trough 7.5 L 06/07/22 06/07/22 20:54 16:51 WBC RBC Hgb Hct MCV MCH MCHC RDW Plt Count MPV Neut % (Auto) Lymph % (Auto) [place] % (Auto) Eos % (Auto) Baso % (Auto) Neut # (Auto) Lymph # (Auto) [place] # (Auto) Eos # (Auto) Baso # (Auto) Nucleated RBC % (auto) Nucleated RBCs # Sodium Potassium Chloride Carbon Dioxide Anion Gap BUN Creatinine GFR Calculation Glucose POC Glucose 115 H 143 H Calculated Osmolality Lactate Calcium Phosphorus Magnesium Total Bilirubin AST ALT Alkaline Phosphatase Total Protein Albumin Globulin Vancomycin Trough Completed Studies During Hospitalization Category Date Time Status CT abdomen pelvis w con* [id number] Stat Cat Scan 06/08/22 09:[address] lower leg LT wo con* [id number] Routine Cat Scan 06/08/22 09:56 Completed XR tibia fibula LT 2V [id number] Stat Exams 06/06/22 08:12 Completed US venous duplex lower extremity LT [CV venous duplex Ultrasound 06/06/22 05:29 [place] [id number]] Stat Laboratory Last Values WBC 14.5 10^3/uL (4.0-10.0) H 06/08/22 01:00 RBC 4.87 10^6/uL (4.1-5.3) 06/08/22 01:00 Hgb 14.1 g/dL (11.5-15.3) 06/08/22 01:00 Hct 43.0 % (37.0-47.0) 06/08/22 01:00 MCV 88.3 fl (81-99) 06/08/22 01:00 MCH 29.0 pg (28.0-34.0) 06/08/22 01:00 MCHC 32.8 g/dL (30.0-36.0) 06/08/22 01:00 RDW 14.3 % (12.1-15.1) 06/08/22 01:00 Plt Count 165 10^3/cmm (130-400) 06/08/22 01:00 MPV 10.6 fL (7.4-10.4) H 06/08/22 01:00 Neut % (Auto) 81.2 % 06/08/22 01:00 Lymph % (Auto) 6.9 % 06/08/22 01:00 [place] % (Auto) 9.8 % 06/08/22 01:00 Eos % (Auto) 0.6 % 06/08/22 01:00 Baso % (Auto) 0.3 % 06/08/22 01:00 Neut # (Auto) 11.74 10^3/uL (1.8-7.7) H 06/08/22 01:00 Lymph # (Auto) 1.0 10^3/uL (0.8-4.8) 06/08/22 01:00 [place] # (Auto) 1.4 10^3/uL (0.2-0.9) H 06/08/22 01:00 Eos # (Auto) 0.1 10^3/uL (0.0-0.8) 06/08/22 01:00 Baso # (Auto) 0.0 10^3/uL (0.0-0.1) 06/08/22 01:00 Nucleated RBC % (auto) 0 % 06/08/22 01:00 Nucleated RBCs # 0.0 /100WBC 06/08/22 01:00 ESR 38 mm/hr (0-15) H 06/06/22 05:12 Sodium 133 mmol/L (136-145) L 06/08/22 01:00 Potassium 3.7 mmol/L (3.5-5.1) 06/08/22 01:00 Chloride 94 mmol/L (98-107) L 06/08/22 01:00 Carbon Dioxide 26 mmol/L (22-29) 06/08/22 01:00 Anion Gap 16.7 (5-19) 06/08/22 01:00 BUN 17 mg/dL (8-23) 06/08/22 01:00 Creatinine 0.7 mg/dL (0.5-0.9) 06/08/22 01:00 GFR Calculation 84.5 mL/min (90-130) L 06/08/22 01:00 Glucose 104 mg/dL (65-115) 06/08/22 01:00 POC Glucose 113 mg/dL (70-110) H 06/08/22 11:08 Estimat Average Glucose 103 06/06/22 05:12 Hemoglobin A1c 5.2 % (4.0-6.0) 06/06/22 05:12 Calculated Osmolality 278 mOsm/kg (285-295) L 06/08/22 01:00 Lactic Acid 1.0 mmol/L (0.5-2.2) 06/06/22 09:36 Lactate 1.3 mmol/L (0.5-2.2) 06/08/22 10:10 Calcium 9.0 mg/dL (8.5-10.5) 06/08/22 01:00 Phosphorus 4.0 mg/dL (2.5-4.5) 06/08/22 01:00 Magnesium 2.2 mg/dL (1.7-2.3) 06/08/22 01:00 Total Bilirubin 1.1 mg/dL (0.15-1.2) 06/08/22 01:00 AST 28 U/L (0-32) 06/08/22 01:00 ALT 16 U/L (0-33) 06/08/22 01:00 Alkaline Phosphatase 84 U/L (35-105) 06/08/22 01:00 C-Reactive Protein 203.6 mg/L (0.0-4.9) H 06/06/22 06:25 NT-Pro-B Natriuret Pep 2508 pg/mL (0-125) H 06/06/22 06:25 Total Protein 7.3 g/dL (6.6-8.7) 06/08/22 01:00 Albumin 3.3 g/dL (3.5-5.2) L 06/08/22 01:00 Globulin 4.0 g/dL (1.3-4.6) 06/08/22 01:00 Triglycerides 145 mg/dL (0-150) 06/06/22 06:25 Cholesterol 109 mg/dL (0-200) 06/06/22 06:25 LDL Cholesterol, Calc 66 mg/dL (50-129) 06/06/22 06:25 HDL Cholesterol 14 mg/dL (60-100) L 06/06/22 06:25 LDL/HDL Ratio 4.71 RATIO (0.00-3.22) H 06/06/22 06:25 Cholesterol/HDL Ratio 7.79 mg/dL (0.0-4.40) H 06/06/22 06:25 Procalcitonin 0.42 ng/mL (0-0.5) 06/06/22 06:25 TSH 3.70 uIU/mL (0.27-4.20) 06/06/22 06:25 Urine Color Yellow (Yellow) 06/06/22 22:20 Urine Appearance Sl hazy (CLEAR) A 06/06/22 22:20 Urine pH 5 (5-7) 06/06/22 22:20 Ur Specific [place] 1.020 (1.005-1.030) 06/06/22 22:20 Urine Protein 1+ (Negative) H 06/06/22 22:20 Urine Glucose (UA) Norm (Normal) 06/06/22 22:20 Urine Ketones Negative (Negative) 06/06/22 22:20 Urine Blood 2+ (Negative) H 06/06/22 22:20 Urine Nitrate Negative (Negative) 06/06/22 22:20 Urine Bilirubin Neg (Negative) 06/06/22 22:20 Urine Urobilinogen 4 mg/dL (Negative) H 06/06/22 22:20 Ur Leukocyte Esterase Negative (Negative) 06/06/22 22:20 Urine RBC None /hpf (0-2) 06/06/22 22:20 Urine WBC None /hpf (0-5) 06/06/22 22:20 Ur Squamous Epith Cells 15-25 /hpf (0-5) H 06/06/22 22:20 Amorphous Sediment 2+ /hpf 06/06/22 22:20 Urine Bacteria 1+ /hpf (NONE) H 06/06/22 22:20 Hyaline Casts 0-4 /lpf H 06/06/22 22:20 Vancomycin Trough 7.5 ug/mL (10-15) L 06/08/22 01:00 Radiology Impressions Venous Duplex 06/06/22 05:29 IMPRESSION: 1. No evidence of deep vein thrombosis. 2. Moderate lower extremity subcutaneous edema. Some enlarged left inguinal lymph nodes. Tibia/Fibula X-Ray 06/06/22 08:12 IMPRESSION: 1. No fracture or bone destruction. 2. Diffuse soft tissue edema of the lower leg. Abdomen/Pelvis CT 06/08/22 09:56 IMPRESSION: 1. Umbilical hernia containing fluid and a loop of small bowel; this may be incarcerated. No pneumatosis or free air is seen to suggest strangulation. There is marked dilatation of numerous more proximal small bowel loops compatible with associated obstruction. 2. Cholelithiasis with mildly prominent gallbladder wall. Consider ultrasound if clinically warranted. 3. Hepatosplenomegaly. 4. Large ascites. 5. Cardiomegaly with coronary artery disease. 6. Colonic diverticulosis without evidence of acute diverticulitis. ADDENDUM: 06/08/22 1138 Findings discussed with HOSEA GARCIA at 06/08/2022 11:37 AM INTERNAL CARVER. Lower Extremity CT 06/08/22 09:56 IMPRESSION: 1. Extensive subcutaneous edema involving the distal thigh and lower leg/ankle with skin thickening; query cellulitis. No soft tissue gas is seen to suggest necrotizing fasciitis. No gross evidence. No soft tissue gas to suggest necrotizing fasciitis. 2. Mild osteoarthritis at the knee with trace knee joint effusion. 3. Plantar and posterior calcaneal spurs are seen. Recent Clincial Data Last Vital Signs Temp 97.3 F L 06/08/22 08:00 Pulse 87 06/08/22 11:15 Resp 16 06/08/22 11:15 BP 108/67 06/08/22 08:00 Pulse Ox 99 06/08/22 11:15 O2 Del Method 06/08/22 11:15 O2 Flow Rate 2 06/08/22 11:15 Vital Signs Temp Pulse Resp BP Pulse Ox O2 Del Method O2 Flow Rate 06/08/22 08:00 97.3 F L 93 15 108/67 98 Nasal Cannula 06/08/22 11:15 87 16 99 Nasal Cannula 2 06/08/22 07:21 98 16 99 Nasal Cannula 2 06/08/22 04:47 108 H 06/08/22 03:41 97.5 F L 104 H 18 92/57 98 Nasal Cannula 06/08/22 00:25 97.4 F L 104 H 20 H 104/71 98 Nasal Cannula Intake & Output/Weight 06/06/22 06/07/22 06/08/22 06/09/22 06:59 06:59 06:59 06:59 Intake Total 2720 / 2720 1670 / 1670 Output Total 750 / 750 1280 / 1280 Balance 1969 / 1969 390 / 390 Weight 76.204 kg 78.925 kg Vitals Last Vital Signs Temp 97.3 F L 06/08/22 08:00 Pulse 87 06/08/22 11:15 Resp 16 06/08/22 11:15 BP 108/67 06/08/22 08:00 Pulse Ox 99 06/08/22 11:15 O2 Del Method 06/08/22 11:15 O2 Flow Rate 2 06/08/22 11:15 TS Medications Medications Acetaminophen (Acetaminophen 325 Mg Tablet) 650 mg PO Q6H PRN PRN Reason: Mild/Mod Pain Or Temp >/= 101 Aripiprazole (Aripiprazole 10 Mg Tablet) 5 mg PO BEDTIME@20 [facility] Last Admin: 06/07/22 19:32 Dose: 5 mg Aspirin (Aspirin 81 Mg Ec Tablet) 81 mg PO DAILY [facility] Last Admin: 06/08/22 09:02 Dose: 81 mg Dextrose (Dextrose 50% Syringe 50 Ml) 25 ml IVP ONCE PRN; Protocol PRN Reason: hypoglycemia protocol Dextrose (Dextrose 50% Syringe 50 Ml) 50 ml IVP PRN PRN; Protocol PRN Reason: hypoglycemia protocol Diltiazem HCl (Diltiazem Er (24hr) 180 Mg Capsule) 180 mg PO DAILY@08 [facility] [place] Last Admin: 06/08/22 09:01 Dose: 180 mg Ferrous Gluconate (Ferrous Gluconate 324 Mg Tablet) 324 mg PO BIDWM [facility] [place] Last Admin: 06/08/22 09:01 Dose: 324 mg Glucagon (Glucagon 1 Mg/Ml Inj 1 Ml) 1 mg IM ONCE PRN; Protocol PRN Reason: Adult Acute Hypoglycemia Prot. Hydrocortisone (Hydrocortisone 2.5% Cream 28 Gm) 1 applic TOPICAL BID PRN PRN Reason: unknown Dextrose (D5w) 500 mls @ 100 mls/hr IV ONCE PRN; Protocol PRN Reason: Adult Acute Hypoglycemia Prot Piperacillin Sod/Tazobactam (Sod 3.375 gm/ Sodium Chloride) 50 mls @ 12.5 mls/hr IV Q8H [facility] [place] Last Admin: 06/08/22 04:27 Dose: 12.5 mls/hr Vancomycin HCl 1,000 mg/ (Sodium Chloride) 250 mls @ 250 mls/hr IV Q12H [facility] [place] Sodium Chloride (Sodium Chloride 0.9%) 1,000 mls @ 50 mls/hr IV .Q20H [facility] [place] Last Admin: 06/08/22 11:22 Dose: 50 mls/hr Insulin Human Lispro (Insulin Lispro 100 Unit/1 Ml) 0 unit SUBCUT TIDWM [facility] [place]; Protocol Last Admin: 06/08/22 11:18 Dose: Not Given Ipratropium [place] (Ipratropium 0.5 Mg/2.5 Ml Neb) 0.5 mg INHALATION QID.RESPIRATORY [facility] [place] Last Admin: 06/08/22 11:13 Dose: 0.5 mg Levothyroxine Sodium (Levothyroxine 150 Mcg Tablet) 150 mcg PO DAILY@06 [facility] [place] Last Admin: 06/08/22 04:27 Dose: 150 mcg Lorazepam (Lorazepam 1 Mg Tablet) 1 mg PO BID PRN PRN Reason: Anxiety Last Admin: 06/07/22 19:19 Dose: 1 mg Morphine Sulfate (Morphine 4 Mg/Ml Sdv 1 Ml) 2 mg IVP Q4H PRN PRN Reason: SEVERE PAIN Non-Formulary Medication (Potassium Chloride) 8 meq PO BID [facility] [place] Last Admin: 06/06/22 14:58 Dose: Not Given Nystatin (Nystatin Powder 15 Gm Btl) 1 applic TOPICAL BID@ [facility] [place] Last Admin: 06/08/22 09:02 Dose: 1 applic Ondansetron HCl (Ondansetron 2 Mg/Ml Sdv 2 Ml) 4 mg IVP Q6H PRN PRN Reason: NAUSEA AND VOMITING Last Admin: 06/08/22 04:27 Dose: 4 mg Pantoprazole Sodium (Pantoprazole 40 Mg Sdv) 40 mg IVP Q24H [facility] [place] Last Admin: 06/07/22 15:19 Dose: 40 mg Sertraline HCl (Sertraline 50 Mg Tablet) 50 mg PO DAILY@08 [facility] [place] Last Admin: 06/08/22 09:04 Dose: 50 mg Sodium Chloride (Sodium Chloride 1 Gm Tablet) 1 gm PO BID [facility] [place] Last Admin: 06/08/22 09:01 Dose: 1 gm Sotalol HCl (Sotalol 80 Mg Tablet) 80 mg PO BID@08,20 [facility] [place] Last Admin: 06/08/22 09:02 Dose: 80 mg Spironolactone (Spironolactone 25 Mg Tablet) 25 mg PO DAILY [facility] [place] Last Admin: 06/08/22 09:01 Dose: 25 mg Trazodone HCl (Trazodone 100 Mg Tablet) 150 mg PO BEDTIME@20 [facility] [place] Last Admin: 06/07/22 19:32 Dose: 150 mg Discontinued Medications Vancomycin HCl 1,000 mg/ (Sodium Chloride) 250 mls @ 250 mls/hr IV ONCE ONE; Protocol Stop: 06/06/22 07:45 Last Infusion: 06/06/22 13:35 Dose: Infused Vancomycin HCl 1,000 mg/ (Sodium Chloride) 250 mls @ 250 mls/hr IV Q18H [facility] [place] Last Infusion: 06/08/22 04:08 Dose: Infused Iohexol (Iohexol 350 Mg/Ml 500 Ml Btl (Per Ml)) 0 ml IV ONCE ONE Stop: 06/08/22 10:44 Last Admin: 06/08/22 10:44 Dose: 100 ml Allergies atorvastatin [From Lipitor] Allergy (Verified 06/06/22 05:17) Unknown lisinopril Allergy (Verified 06/06/22 05:17) Unknown Home Medications diclofenac sodium 1 % topical gel See Rx Instructions .Route .COMPLEX 07/20/21 [History Confirmed 06/06/22] diltiazem HCl 180 mg capsule,extended release 24 hr 180 mg PO DAILY@07/20/21 [History Confirmed 06/06/22] levothyroxine 150 mcg tablet (Euthyrox) 150 mcg PO DAILY@07/20/21 [History Confirmed 06/06/22] sertraline 50 mg tablet 50 mg PO DAILY@07/20/21 [History Confirmed 06/06/22] sotalol 80 mg tablet 80 mg PO BID@07/20/21 [History Confirmed 06/06/22] aripiprazole 5 mg tablet 5 mg PO BEDTIME@09/26/21 [History Confirmed 06/06/22] aspirin 81 mg tablet,delayed release 81 mg PO DAILY@05/16/22 [History Confirmed 06/06/22] lorazepam 1 mg tablet 1 mg PO TID@,,05/16/22 [History Confirmed 06/06/22] potassium chloride 8 mEq tablet,extended release 8 meq PO BID@,05/16/22 [History Confirmed 06/06/22] ferrous gluconate 324 mg (37.5 mg iron) tablet 324 mg PO BID@08,17 06/06/22 [History Confirmed 06/06/22] fluticasone 250 mcg-salmeterol 50 mcg/dose blistr powdr for inhalation (Wixela Inhub) 1 inh inhalation BID 06/06/22 [History Confirmed 06/06/22] furosemide 40 mg tablet (Lasix) See Rx Instructions .Route .COMPLEX 06/06/22 [History Confirmed 06/06/22] hydrocortisone 2.5 % topical cream 1 applic topical BID PRN UNKNOWN 06/06/22 [History Confirmed 06/06/22] ondansetron HCl 4 mg tablet 4 mg PO Q4H PRN Nausea And Vomiting 06/06/22 [History Confirmed 06/06/22] spironolactone 50 mg tablet 50 mg PO DAILY@08 06/06/22 [History Confirmed 06/06/22] tiotropium bromide 18 mcg capsule with inhalation device (Spiriva with HandiHaler) 1 cap inhalation DAILY@08 06/06/22 [History Confirmed 06/06/22] trazodone 100 mg tablet 100 mg PO BEDTIME@20 06/06/22 [History Confirmed 06/06/22] Discharge Plan Discharge Patient Disposition: Home Condition: Stable Prescriptions: No Action aripiprazole 5 mg tablet 5 mg PO BEDTIME@20 diltiazem HCl 180 mg capsule,extended release 24hr 180 mg PO DAILY@08 diclofenac sodium 1 % Gel See Rx Instructions .ROUTE .COMPLEX Rx Instructions: apply topically to affected area as directed twice a day as needed sotalol 80 mg tablet 80 mg PO BID@08,20 levothyroxine [Euthyrox] 150 mcg tablet 150 mcg PO DAILY@06 sertraline 50 mg tablet 50 mg PO DAILY@08 aspirin 81 mg tablet,delayed release (DR/EC) 81 mg PO DAILY@08 lorazepam 1 mg Tablet 1 mg PO TID@08,12,20 potassium chloride 8 mEq tablet extended release 8 meq PO BID@08,20 Lasix 40 mg Tablet See Rx Instructions .ROUTE .COMPLEX Rx Instructions: 80MG PO QAM @08 AND 40MG PO AT NOON Wixela Inhub 250-50 mcg/dose blister with device 1 inh INHALATION BID ondansetron HCl 4 mg Tablet 4 mg PO Q4H PRN (Reason: Nausea And Vomiting) hydrocortisone 2.5 % Cream 1 applic TOPICAL BID PRN (Reason: UNKNOWN) spironolactone 50 mg tablet 50 mg PO DAILY@08 trazodone 100 mg tablet 100 mg PO BEDTIME@20 Spiriva with HandiHaler 18 mcg capsule, w/inhalation device 1 cap inhalation DAILY@08 Rx Instructions: puncture 1 cap using device; one dose = 2 inhalations ferrous gluconate 324 mg (37.5 mg iron) tablet 324 mg PO BID@08,17 Referrals: Zachary Trent MD [Primary Care Provider] - Patient Instructions: Opioid Safety Transfer Attestations Time Spent in Transfer Care: less than 30 min Status at Transfer: Cognitive status at transfer: cognitively intact ; Behavioral status at transfer: cooperative ; Quality Metrics Clinical Quality Measures [ No reported AMI, CVA or VTE this stay] Coding Level of Care Code Acute Home Management Supervisor for g Fwd Exam Detailed Diagnoses Cellulitis L03.90 History of coronary artery bypass graft Z95.1 Type 2 diabetes mellitus E11.9 Hx of deep venous thrombosis Z86.718 Essential hypertension I10 Dyslipidemia E78.5 Bipolar disorder in partial remission F31.70 Atrial fibrillation I48.91 Right-sided heart failure I50.810 PHILIPP (obstructive sleep apnea) G47.33 CHF (congestive heart failure) I50.9 Subdural hematoma S06.5XAA
[2022-06-08 12:48] LABS: SARS Covid-2 Antigen negative (Negative)
[2022-06-08] MEDS: pantoprazole 40 mg SDV IVP (13:52)
--- NOTE | 2022-06-08 14:09 | PC.NURSE ---
Report called to GIANNA Sevilla at [place], [place]
--- NOTE | 2022-06-08 14:41 | PC.NURSE ---
This ad copy writer notified Silvino Reardon pt Guardian of pt transfer to [place]
== END 2022-06-08 14:43 | disposition short-term general hospital (02) | DRG 603 ==
LOC: ER 07:47 → MEDSURG 12:43
PROVIDERS: Emergency Medicine; Admitting Provider Family Medicine; Emergency Provider Family Medicine; PCP Pathology Anatomic Pathology & Clinical Pathology; Visit Provider Family Medicine
DX: L03.116 Cellulitis of left lower limb (principal); L08.1 Erythrasma; K42.0 Umbilical hernia with obstruction, without gangrene; R18.8 Other ascites; E87.1 Hypo-osmolality and hyponatremia; I11.0 Hypertensive heart disease with heart failure; I50.810 Right heart failure, unspecified; E78.5 Hyperlipidemia, unspecified; I48.91 Unspecified atrial fibrillation; G47.33 Obstructive sleep apnea (adult) (pediatric); K57.90 Diverticulosis of intestine, part unspecified, without perforation or abscess without bleeding; K80.20 Calculus of gallbladder without cholecystitis without obstruction; R16.2 Hepatomegaly with splenomegaly, not elsewhere classified; I25.10 Atherosclerotic heart disease of native coronary artery without angina pectoris; E03.9 Hypothyroidism, unspecified; E11.9 Type 2 diabetes mellitus without complications; Z95.1 Presence of aortocoronary bypass graft; Z86.718 Personal history of other venous thrombosis and embolism; Z79.82 Long term (current) use of aspirin; Z79.899 Other long term (current) drug therapy; Z86.79 Personal history of other diseases of the circulatory system
CPT/HCPCS: 36415; 36416; 51702; 51798; 73590; 73700; 74177; 76857; 80048; 80053; 80061; 80202; 81001; 82962; 83036; 83605; 83735; 83880; 84100; 84145; 84443; 85025; 85651; 86140; 87040; 87426; 93971; 94640; 94664; 99285; C9113; J2405; J2543; J3370; J7030; J7050; J7644; Q9967

== ENCOUNTER 2022-06-10 13:18 | Inpatient (IN) | payer OTHER, SELFPAY ==
[2022-06-10] VITALS (26 sets, daily range): BP systolic 84–108; BP diastolic 52–69; PULSE 68–95; RESP 15–27; TEMP 35.7–36.4; O2SAT 90–97; BMI 28.6
--- NOTE | 2022-06-10 13:25 | XRR_ITS ---
PROCEDURE INFORMATION: Exam: XR Chest Exam date and time: 06/10/2022 2:40 PM Age: 62 years old Clinical indication: Shortness of breath; Patient HX: History--bilat pitting edema SOB; Additional info: Dyspnea/cough TECHNIQUE: Imaging protocol: Radiologic exam of the chest. Views: 1 view. COMPARISON: CR XR chest 1V portable [id number] 05/14/2022 3:39 PM FINDINGS: Lungs: Unremarkable. No consolidation. Pleural spaces: Elevated right hemidiaphragm. No pleural effusion. A No pneumothorax. Heart/Mediastinum: Unremarkable. No cardiomegaly. Bones/joints: Metallic sternotomy wires are present. XR/XR chest 1V portable [id number] IMPRESSION: 1. No acute findings. 2. Metallic sternotomy wires are present.
--- NOTE | 2022-06-10 13:33 | ED_ITS ---
HPI - SOB/Dyspnea General: Chief Complaint: Extremity Problem,Nontraumatic Stated Complaint: BILATERAL PITTING EDEMA Time Seen by Provider: 06/10/22 13:20 Source: patient Mode of arrival: EMS History of Present Illness: HPI Narrative: 62-year-old female presents via EMS with complaints of swelling in her legs and shortness of breath. Patient was recently admitted with a cellulitis with swelling in her left lower extremity. She was started on antibiotics. After 2 days in the hospital she developed bowel obstruction and incarcerated umbilical hernia there is no general surgery COVID is available at [facility] so she was transferred. She returns today complaining of shortness of breath continued redness and discomfort in the left lower leg. MD elicited complaint: shortness of breath and cough Pertinent past history: COPD Onset (ago): minute(s) Timing: constant Severity: moderate Exacerbating factors: nothing Relieving factors: nothing Associated symptoms: Reports extremity pain; Deny abdominal pain, chest congestion, chest pain, cough, diaphoresis, dizziness, fever(s), hemoptysis, lightheadedness, myalgias, nausea, orthopnea, palpitations, paresthesias, polydipsia, polyuria, rash, sense of impending doom, syncope or vomiting Review of Systems Const: Reports: chills; Denies: fever(s) or diaphoresis ENMT: Denies: throat pain, ear or mastoid pain, nasal discharge or nasal congestion Card: Denies: chest pain, palpitations, lightheadedness, syncope or orthopnea Resp: Reports: dyspnea; Denies: hemoptysis or chest congestion GI: Denies: abdominal pain, nausea or vomiting : Denies: flank pain, difficulty voiding, dysuria, urinary frequency or urinary urgency Musc: Reports: extremity pain and extremity swelling Skin/Breast: Denies: rash or pruritus Neuro: Denies: dizziness Endo: Denies: polyuria or polydipsia PFS ED PFSH: Medical History Acute psychosis ASHD (arteriosclerotic heart disease) Atherosclerosis of coronary artery of [place] heart without angina pectoris Atrial fibrillation Bilateral lower extremity edema Bipolar disorder in partial remission The patient denies history of euphoria, decreased need for sleep, increase in energy, racing thoughts, pressured speech, spending sprees etc. Therefore this diagnosis is removed. Cellulitis CHF (congestive heart failure) Chronic anticoagulation Lucy SAGEID-19 January Dyslipidemia Essential hypertension Hx of deep venous thrombosis Major depression in partial remission Mitral valve regurgitation Pulmonary hypertension Right-sided heart failure Subdural hematoma Tricuspid valve regurgitation Type 2 diabetes mellitus Surgical History History of coronary artery bypass graft 2005 History of coronary artery stent placement History of total vaginal hysterectomy History of tubal ligation S/P evacuation of subdural hematoma Status post colonoscopy Family History Other CAD (coronary artery disease) Diabetes Hypertension Social History Smoking and tobacco status: never smoked Alcohol intake: current Alcohol intake frequency: holidays/special occasions only Household members: significant other Marital status: Single Physical Exam Const: GENERAL APPEARANCE: cooperative and comfortable ORIENTATION/CONSCIOUSNESS: Yes awake, Yes oriented to person, Yes oriented to place and Yes oriented to time HENMT: COMMON NORMALS: normocephalic, atraumatic and hearing grossly normal bilaterally HEAD & SCALP: normocephalic and atraumatic Resp: COMMON NORMALS: normal respiratory effort, No retractions, No use of accessory muscles and clear to auscultation bilaterally AUSCULTATION: clear to auscultation bilaterally Cardio: COMMON NORMALS: regular rate, regular rhythm and No murmurs present (Cardio) RATE: regular rate RHYTHM: regular rhythm GI: COMMON NORMALS: Soft to palpation and No hepatosplenomegaly present AUSCULTATION: Yes normoactive bowel sounds PALPATION: Yes Soft to palpation, No Tenderness to palpation present (GI), No Guarding due to palpation present (GI) and Yes No hepatosplenomegaly present Extremity: OTHER: Left lower extremity circumferential redness erythema some bullous formation. Mild induration. Neuro: SENSORIUM/ORIENTATION: Yes oriented to person, Yes oriented to place a nd Yes oriented to time Skin: COMMON NORMALS: no rashes or lesions noted GENERAL SKIN EXAM: no rashes or lesions noted Course Vital Signs: Vital signs: Vital Signs Temperature 98.0 F 06/12/22 04:00 Pulse Rate 100 06/12/22 04:00 Respiratory Rate 18 06/12/22 04:00 Blood Pressure 94/56 11/23/22 04:00 Pulse Oximetry 97 06/12/22 04:00 Oxygen Delivery Me thod 06/12/22 04:00 Oxygen Flow Rate 2 06/12/22 04:00 MDM - SOB/Dyspnea Medical Decision Making Persistent cellulitis. We will readmit patient started on vancomycin after cultures obtained discussed with hospitalist orders written. Medical Records I reviewed the patient's medical records. Lab Data I reviewed the patient's lab results. 06/10/22 14:55 06/10/22 14:55 Labs/Radiology: Radiology Impressions Chest X-Ray 06/10/22 13:25 IMPRESSION: 1. No acute findings. 2. Metallic sternotomy wires are present. Laboratory Results WBC 11.9 10^3/uL (4.0-10.0) H 06/10/22 14:55 RBC 4.28 10^6/uL (4.1-5.3) 06/10/22 14:55 Hgb 12.4 g/dL (11.5-15.3) 06/10/22 14:55 Hct 39.0 % (37.0-47.0) 06/10/22 14:55 MCV 91.1 fl (81-99) 06/10/22 14:55 MCH 29.0 pg (28.0-34.0) 06/10/22 14:55 MCHC 31.8 g/dL (30.0-36.0) 06/10/22 14:55 RDW 14.8 % (12.1-15.1) 06/10/22 14:55 Plt Count 281 10^3/cmm (130-400) 06/10/22 14:55 MPV 10.0 fL (7.4-10.4) 06/10/22 14:55 Neut % (Auto) 73.2 % 06/10/22 14:55 Lymph % (Auto) 12.1 % 06/10/22 14:55 [place] % (Auto) 9.4 % 06/10/22 14:55 Eos % (Auto) 2.7 % 06/10/22 14:55 Baso % (Auto) 0.4 % 06/10/22 14:55 Neut # (Auto) 8.73 10^3/uL (1.8-7.7) H 06/10/22 14:55 Lymph # (Auto) 1.4 10^3/uL (0.8-4.8) 06/10/22 14:55 [place] # (Auto) 1.1 10^3/uL (0.2-0.9) H 06/10/22 14:55 Eos # (Auto) 0.3 10^3/uL (0.0-0.8) 06/10/22 14:55 Baso # (Auto) 0.1 10^3/uL (0.0-0.1) 06/10/22 14:55 Nucleated RBC % (auto) 0 % 06/10/22 14:55 Nucleated RBCs # 0.0 /100WBC 06/10/22 14:55 Sodium 139 mmol/L (136-145) 06/10/22 14:55 Potassium 4.1 mmol/L (3.5-5.1) 06/10/22 14:55 Chloride 102 mmol/L (98-107) 06/10/22 14:55 Carbon Dioxide 28 mmol/L (22-29) 06/10/22 14:55 Anion Gap 13.1 (5-19) 06/10/22 14:55 BUN 22 mg/dL (8-23) 06/10/22 14:55 Creatinine 0.9 mg/dL (0.5-0.9) 06/10/22 14:55 GFR Calculation 63.2 mL/min (90-130) L 06/10/22 14:55 Glucose 108 mg/dL (65-115) 06/10/22 14:55 Calculated Osmolality 292 mOsm/kg (285-295) 06/10/22 14:55 Lactic Acid 1.9 mmol/L (0.5-2.2) 06/10/22 14:55 Calcium 8.5 mg/dL (8.5-10.5) 06/10/22 14:55 Total Bilirubin 0.7 mg/dL (0.15-1.2) 06/10/22 14:55 AST 22 U/L (0-32) 06/10/22 14:55 ALT 13 U/L (0-33) 06/10/22 14:55 Alkaline Phosphatase 71 U/L (35-105) 06/10/22 14:55 Troponin T Baseline 10 ng/L (0-10) 06/10/22 14:55 Troponin T 120 Minute 10.04 ng/L (0-10) H 06/10/22 16:23 Delta Troponin T 0.04 ABS# (0-10) 06/10/22 16:23 C-Reactive Protein 58.4 mg/L (0.0-4.9) H 06/10/22 14:55 NT-Pro-B Natriuret Pep 4083 pg/mL (0-125) H 06/10/22 14:55 Total Protein 7.0 g/dL (6.6-8.7) 06/10/22 14:55 Albumin 3.2 g/dL (3.5-5.2) L 06/10/22 14:55 Globulin 3.8 g/dL (1.3-4.6) 06/10/22 14:55 Procalcitonin 0.12 ng/mL (0-0.5) 06/10/22 14:55 Discharge Plan Discharge Patient Disposition: Admitted As Inpatient Admit Provider: Joshua Pendleton Clinical Impression: Cellulitis, Type 2 diabetes mellitus, Atrial fibrillation, Hypotension Condition: Stable Coding Level of Care Code ED English Composition Instructor for Chg Fwd Exam Detailed
--- NOTE | 2022-06-10 13:35 | ECG_ITS ---
[facility] Test Date: 2022-06-10 Pat Name: Ivette Wheeler Department: Room: Gender: Female Business Teacher: : 1960 Requested By: Jean Claude Bonds Order Number: [id number] [place] MD: Medardo Huddleston M.D. Measurements Intervals [place] Rate: 75 P: 0 [place]: 0 QRS: 69 QRSD: 83 T: 77 QT: 404 QTc: 452 Interpretive Statements ATRIAL FIBRILLATION LOW QRS VOLTAGE IN PRECORDIAL LEADS [QRS DEFLECTION < 1.0 mV IN CHEST LEADS] SEPTAL MYOCARDIAL INFARCTION , OF INDETERMINATE AGE [40+ ms Q WAVE IN V1/V2] Compared to ECG 07/25/2021 10:52:27 Low QRS voltage now present Myocardial infarct finding now present Incomplete right bundle-branch block no longer present Electronically Signed On 06-10-2022 17:04:53 MILLINERY COPYIST by Medardo Huddleston M.D. [email or web address] [id number]
--- NOTE | 2022-06-10 13:44 | USCV_ITS ---
Ivette Wheeler Age: 62 Gender: F : 1960 Exam Date: 06/10/2022 14:57 Ordering Phys: Jean Claude De La Fuente DO Technologist: Sixto Padilla Exam Location: [facility] [place] Indication: lt leg pain and edema HISTORY: Lower extremity swelling. Lower extremity pain. PROCEDURES: Venous duplex imaging was performed in only the left lower extremity. The following venous structures were evaluated: common femoral vein, profunda vein, proximal portion of the greater saphenous vein, superficial femoral vein, and the popliteal vein. In addition, the posterior tibial and peroneal trunk were evaluated. FINDINGS: Normal 2-D Doppler and augmentation and compressibility throughout the lower extremity venous structures. Additional imaging through the proximal calf veins also reveals no thrombus. Limited evaluation of the greater saphenous vein is patent with no thrombus.. CONCLUSIONS No DVT left lower extremity. Dr. Kylie Esquivel DO (Electronically Signed) Final Date: 10 June 2022 15:41 S
--- NOTE | 2022-06-10 13:54 | PC.PHAR ---
pt is from [place] [phone]-per tatum nurse from [facility] the pt had all am meds no noon meds-per tatum nurse from [facility] the pts lasix was changed to 80mg bid today but states the pt hasnt started the new increase-notes are made in the pharmacy comments
--- NOTE | 2022-06-10 14:28 | PC.NURSE ---
attempted IV and blood work, unsuccessful. Pt reports she is normally a difficult stick. Another nurse to attempt IV
[2022-06-10 15:09] LABS: Basophils # 0.1 10^3/uL (0.0-0.1); Basophils % 0.4 %; Eosinophils # 0.3 10^3/uL (0.0-0.8); Eosinophils % 2.7 %; Hemoglobin 12.4 g/dL (11.5-15.3); Lymphocytes # 1.4 10^3/uL (0.8-4.8); Lymphocytes % 12.1 %; Mean Corpuscular HGB Conc 31.8 g/dL (30.0-36.0); Mean Corpuscular Volume 91.1 fl (81-99); Monocytes # 1.1 10^3/uL (0.2-0.9); Monocytes % 9.4 %; Neutrophils # 8.73 10^3/uL (1.8-7.7); Neutrophils % 73.2 %; Nucleated Red Blood Cells % 0 %; Platelet Count 281 10^3/cmm (130-400); Red Blood Count 4.28 10^6/uL (4.1-5.3); Red Cell Distribution Width 14.8 % (12.1-15.1); White Blood Count 11.9 10^3/uL (4.0-10.0)
--- NOTE | 2022-06-10 15:26 | ECG_ITS ---
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 Measurements Intervals [place] Rate: 68 P: 0 [place]: 0 QRS: 57 QRSD: 88 T: 68 QT: 415 QTc: 443 Interpretive Statements ATRIAL FIBRILLATION LOW QRS VOLTAGE IN PRECORDIAL LEADS [QRS DEFLECTION < 1.0 mV IN CHEST LEADS] SEPTAL MYOCARDIAL INFARCTION , OF INDETERMINATE AGE [40+ ms Q WAVE IN V1/V2] Compared to ECG 06/10/2022 13:35:53 No significant changes Electronically Signed On 06-10-2022 18:27:26 SINGLE NEEDLE OPERATOR by Medardo Huddleston M.D. [email or web address] clevel[facility] [email or web address].[email or web address]/store/[id number]
[2022-06-10 15:38] LABS: Troponin(5th) Baseline 10 ng/L (0-10)
[2022-06-10 15:45] LABS: Alanine Aminotransferase 13 U/L (0-33); Albumin Level 3.2 g/dL (3.5-5.2); Alkaline Phosphatase 71 U/L (35-105); Anion Gap 13.1 (5-19); Aspartate Amino Transferase 22 U/L (0-32); Blood Urea Nitrogen 22 mg/dL (8-23); Calcium 8.5 mg/dL (8.5-10.5); Carbon Dioxide 28 mmol/L (22-29); Chloride 102 mmol/L (98-107); Creatinine Clr Calc Pharmacy 63.7531; Globulin 3.8 g/dL (1.3-4.6); Glomerular Filtration Rate 63.2 mL/min (90-130); Glucose 108 mg/dL (65-115); NT Pro B Type Natriuretic Pept 4083 pg/mL (0-125); Osmolality Calculated 292 mOsm/kg (285-295); Potassium 4.1 mmol/L (3.5-5.1); Sodium 139 mmol/L (136-145); Total Bilirubin 0.7 mg/dL (0.15-1.2)
--- NOTE | 2022-06-10 15:47 | PC.NURSE ---
pt's bp 88/52, Dr De La Fuente notified. new orders received.
[2022-06-10] MEDS: sodium chloride 0.9% 500 ML 999 ML IV ×3 (16:09→23:46)
[2022-06-10 16:18] LABS: Lactic Sepsis W/Reflex 1.9 mmol/L (0.5-2.2)
--- NOTE | 2022-06-10 16:39 | P.HP_ITS ---
Providers/Chief Complaint Admitting Physician: Joshua Pendleton MD Primary Care Provider: Zachary Trent Chief Complaint: BILATERAL PITTING EDEMA History of Present Illness Ivette Wheeler is a 62 year old female with a past medical history significant for atrial fibrillation, bipolar disorder, dyslipidemia, hypertension, deep vein thrombosis, pulmonary hypertension, and type 2 diabetes mellitus who presents to the emergency department with with worsening left lower extremity cellulitis. Of note, patient was admitted from 06/06 to 06/08 after presenting with the same complaint. Patient states she is unsure when the symptoms initially began but they have been present for at least a week. She endorses pain, swelling, warmth and redness of her left lower extremity. During her prior admission, she was treated with vancomycin and Zosyn. Hospital course was complicated by inca rcerated small bowel in her umbilical hernia. No general surgery support was available at [facility] so patient was subsequently transferred to [facility] on 06/08. Patient reports she underwent surgery on her umbilical hernia. She does not think any bowel was opened and does not think in mesh had to be utilized. She denies any significant pain at her recent surgery site. She states she was not discharged on any antibiotics. Patient denies associated symptoms of fevers, chills, nausea or emesis. Reports bowel movements are regular. Denies other alleviating or aggravating factors. Review of Systems Narrative: A complete review of systems was obtained and is negative except as stated in HPI. Medications/Allergies Home Medications Medication Instructions Recorded Confirmed Last Taken Type diclofenac sodium 1 % topical gel See Rx Instructions .Route .COMPLEX 07/20/21 06/10/22 05/16/22 History diltiazem HCl 180 mg 180 mg PO DAILY@07/20/21 06/10/22 06/10/22 History capsule,extended release 24 hr levothyroxine 150 mcg tablet 150 mcg PO DAILY@06 07/20/21 06/10/22 06/10/22 History (Euthyrox) sertraline 50 mg tablet 50 mg PO DAILY@07/20/21 06/10/22 06/10/22 History sotalol 80 mg tablet 80 mg PO BID@07/20/21 06/10/22 06/10/22 History aripiprazole 5 mg tablet 5 mg PO BEDTIME@09/26/21 06/10/22 06/09/22 History aspirin 81 mg tablet,delayed 81 mg PO DAILY@05/16/22 06/10/22 06/10/22 History release lorazepam 1 mg tablet 1 mg PO TID@,,05/16/22 06/10/22 06/10/22 08:00 History potassium chloride 8 mEq 8 meq PO BID@,05/16/22 06/10/22 06/10/22 History tablet,extended release ferrous gluconate 324 mg (37.5 mg 324 mg PO BID@06/06/22 06/10/22 06/10/22 History iron) tablet fluticasone 250 mcg-salmeterol 50 1 inh inhalation BID@06/06/22 06/10/22 06/10/22 History mcg/dose blistr powdr for inhalation (Wixela Inhub) furosemide 40 mg tablet (Lasix) See Rx Instructions .Route .COMPLEX 06/06/22 06/10/22 06/10/22 08:00 History see pharmacy comment hydrocortisone 2.5 % topical cream 1 applic topical BID PRN UNKNOWN 06/06/22 06/10/22 Unknown History ondansetron HCl 4 mg tablet 4 mg PO Q4H PRN Nausea And Vomiting 06/06/22 06/10/22 Unknown History spironolactone 50 mg tablet 50 mg PO DAILY@06/06/22 06/10/22 06/10/22 History tiotropium bromide 18 mcg capsule 1 cap inhalation DAILY@06/06/22 06/10/22 06/10/22 History with inhalation device (Spiriva with HandiHaler) trazodone 100 mg tablet 100 mg PO BEDTIME@06/06/22 06/10/22 06/09/22 History nystatin 100,000 unit/gram topical 1 applic topical BID@ rash 06/10/22 06/10/22 Unknown History powder ([facility]) Allergies Allergy/AdvReac Type Severity Reaction Status Date / Time atorvastatin [From Lipitor] Allergy Unknown Verified 06/06/22 05:17 lisinopril Allergy Unknown Verified 06/06/22 05:17 PFSH Acute PFSH: Medical History Acute psychosis ASHD (arteriosclerotic heart disease) Atherosclerosis of coronary artery of [place] heart without angina pectoris Atrial fibrillation Bilateral lower extremity edema Bipolar disorder in partial remission The patient denies history of euphoria, decreased need for sleep, increase in energy, racing thoughts, pressured speech, spending sprees etc. Therefore this diagnosis is removed. Cellulitis CHF (congestive heart failure) Chronic anticoagulation Lucy CAZARES-19 January Dyslipidemia Essential hypertension Hx of deep venous thrombosis Major depression in partial remission Mitral valve regurgitation Pulmonary hypertension Right-sided heart failure Subdural hematoma Tricuspid valve regurgitation Type 2 diabetes mellitus Surgical History History of coronary artery bypass graft 2004 History of coronary artery stent placement History of total vaginal hysterectomy History of tubal ligation S/P evacuation of subdural hematoma Status post colonoscopy Family History Other CAD (coronary artery disease) Diabetes Hypertension Social History Smoking and tobacco status: never smoked Alcohol intake: current Alcohol intake frequency: holidays/special occasions only Household members: significant other Marital status: Single Vitals/I&O/Wt Last Vital Signs Temp 96.3 F L 06/10/22 13:22 Pulse 69 06/10/22 14:45 Resp 16 06/10/22 13:22 BP 95/68 06/10/22 14:45 Pulse Ox 95 06/10/22 14:45 O2 Del Method 06/10/22 13:22 Weight last 48 hrs Weight 75.75 kg Physical Exam Narrative: General: Patient is awake and alert. Appears fatigued. Head: Normocephalic. Atraumatic. EOM intact. Neck: No JVD. Cardiovascular: No gallops. No murmurs. Blood pressure is soft. Lungs: Clear to auscultation, no use of accessory muscles, no crackles or wheez es. Skin: No jaundice. No rashes. Abdomen: Normal bowel sounds, abdomen soft and nontender. Umbilical hernia surgical site is clean dry and intact. Genito Urinary: Genital exam not performed since complaints not related. Rectal: Rectal exam not performed since no symptoms indicated blood loss. Extremities: Left lower extremity is markedly swollen with overlying erythema and warmth. There are couple bulla present. TTP. Musculoskeletal: 5/5 strength, normal range of motion, no swollen or erythem atous joints. Neurological: Moves all 4 extremities. No myoclonus. Data 06/10/22 14:55 06/10/22 14:55 Micro: Microbiology 06/10/22 14:33 Blood Culture - Preliminary Blood SPECIMEN COLLECTED 06/10/22 14:55 Blood Culture - Preliminary Blood SPECIMEN COLLECTED A&P Assessment and plan (1) Cellulitis: Cellulitis is severe with underlying edema, high risk for treatment failure Status post vancomycin and Zosyn (06/06-06/08) Uncertain what antibiotics, if any, he may have received at [facility] Blood cultures ordered Inflammatory markers ordered Start vancomycin, pharmacy to dose Start ceftriaxone Serial exams (2) Hypotension: Patient is hypotensive Receiving IV fluids and showing some response, unfortunately her edema is likely to worsen Hold Aldactone due to hypotension Hold Lasix due to hypotension Lactate unremarkable Treat underlying infection (3) Atrial fibrillation: Continue diltiazem, may have to hold depending on blood pressure (4) Type 2 diabetes mellitus: Sliding scale insulin correction Blood glucose goal of 110 to 180 Avoid hypoglycemia (5) Bilateral lower extremity edema: Secondary to chronic diastolic heart failure with preserved ejection fraction Diuretics on hold due to hypotension Daily assessment of volume High risk for exacerbation Strict I&Os Daily weights (6) Essential hypertension: Diuretics on hold due to hypotension Monitor blood pressure closely (7) Hx of deep venous thrombosis: Not on therapeutic anticoagulation DVT ppx ordered (8) Bipolar disorder in partial remission: Continue home abilify if possible (NF) (9) Hypothyroidism: Continue Synthroid Plan DVT ppx: Lovenox Code Status: Full Code Attestations Medical Necessity Statement*: Patient presents with worsening severe cellulitis of left lower extremity as well as hypotension requiring hospitalization for IV fluid resuscitation, IV antibiotic, hemodynamic monitoring, serial labs, and supportive care. Coding Level of Care Code Acute Rental Management Trainee for [facility] Fwd Diagnoses Cellulitis L03.90 Hypotension I95.9 Atrial fibrillation I48.91 Type 2 diabetes mellitus E11.9 Bilateral lower extremity edema R60.0 Essential hypertension I10 Hx of deep venous thrombosis Z86.718 Bipolar disorder in partial remission F31.70 Hypothyroidism E03.9
[2022-06-10] MEDS: vancomycin 1,000 MG in sodium chloride 0.9% 250 ML 250 MG IV (17:25)
[2022-06-10 17:31] LABS: C Reactive Protein 58.4 mg/L (0.0-4.9)
[2022-06-10 17:39] LABS: Procalcitonin 0.12 ng/mL (0-0.5)
[2022-06-10 17:51] LABS: Troponin 5 2HR 10.04 ng/L (0-10); Troponin 5 2HR Delta 0.04 ABS# (0-10)
--- NOTE | 2022-06-10 19:49 | ECG_ITS ---
[facility] Test Date: 2022-06-10 Pat Name: Ivette Wheeler Department: Room: 278 Gender: Female Financial Reporting Advisor: : 1960 Requested By: Jean Claude Bonds Order Number: [id number] [place] MD: Parish Anderson M.D. Measurements Intervals [place] Rate: 84 P: 0 NM: 0 QRS: 55 QRSD: 107 T: 29 QT: 402 QTc: 478 Interpretive Statements ATRIAL FIBRILLATION LOW QRS VOLTAGE IN PRECORDIAL LEADS [QRS DEFLECTION < 1.0 mV IN CHEST LEADS] NONSPECIFIC T-WAVE ABNORMALITY ABNORMAL RHYTHM ECG Compared to ECG 06/10/2022 15:44:46 T-wave abnormality now present Myocardial infarct finding no longer present Electronically Signed On 06-11-2022 20:42:17 CAPITAL CAMPAIGN FUNDRAISER by Parish Anderson M.D. [email or web address] permanente [facility].Nvest/store/[id number]
[2022-06-10] MEDS: sodium chloride 0.9% 500 ML IV ×2 (19:52→19:54)
[2022-06-10] MEDS: enoxaparin 40 mg/0.4 mL Syringe SUBCUT (19:52)
[2022-06-10] MEDS: ferrous gluconate 324 mg Tablet PO (19:52)
[2022-06-10] MEDS: ipratropium-albuterol 3 mL Neb INHALATION (19:54)
[2022-06-10] MEDS: budesonide 0.5 mg/2 mL Neb INHALATION (19:54)
[2022-06-10] MEDS: cefTRIAXone 1,000 MG in sodium chloride 0.9% (plus) 50 ML 100 MG IV (20:48)
[2022-06-10] MEDS: ARIPiprazole 10 mg Tablet 5 MG PO (20:49)
[2022-06-10] MEDS: trazodone 100 mg Tablet PO (20:49)
[2022-06-10] MEDS: sotalol 80 mg Tablet PO (20:49)
[2022-06-10 20:50] LABS: Add Urine Microscopic? YES; Bilirubin Urine Neg (Negative); Blood Urine Neg (Negative); Glucose Urine UA Norm (Normal); Ketones Urine Negative (Negative); Leukocyte Esterase Urine Trace (Negative); Nitrate Urine Negative (Negative); Protein Urine Neg (Negative); Urine Appearance Clear (CLEAR); Urine Color Yellow (Yellow); Urobilinogen Urine Norm (Negative); WBC Urine 0-4 /hpf (0-5); pH Urine 5 (5-7)
[2022-06-10] MEDS: sennosides 8.6 mg Tablet 17.2 MG PO (20:50)
[2022-06-10 20:51] LABS: Add Urine Culture? Yes; Sperm Urine 1+ /hpf
[2022-06-10] MEDS: LORazepam 1 mg Tablet PO (20:51)
[2022-06-10 21:01] LABS: Glucose Point of Care 107 mg/dL (70-110)
[2022-06-11] VITALS (13 sets, daily range): BP systolic 84–103; BP diastolic 56–69; PULSE 76–108; RESP 15–18; TEMP 36.6–36.7; O2SAT 94–98
[2022-06-11 05:52] LABS: Basophils % 0.4 %; Eosinophils # 0.3 10^3/uL (0.0-0.8); Eosinophils % 2.7 %; Hematocrit 35.7 % (37.0-47.0); Hemoglobin 11.3 g/dL (11.5-15.3); Lymphocytes # 1.3 10^3/uL (0.8-4.8); Lymphocytes % 13.3 %; Mean Corpuscular HGB Conc 31.7 g/dL (30.0-36.0); Mean Corpuscular Volume 91.8 fl (81-99); Mean Platelet Volume 9.6 fL (7.4-10.4); Monocytes # 0.9 10^3/uL (0.2-0.9); Monocytes % 9.1 %; Neutrophils # 6.76 10^3/uL (1.8-7.7); Neutrophils % 70.3 %; Nucleated Red Blood Cells % 0 %; Platelet Count 259 10^3/cmm (130-400); Red Blood Count 3.89 10^6/uL (4.1-5.3); White Blood Count 9.6 10^3/uL (4.0-10.0)
[2022-06-11] MEDS: levothyroxine 150 mcg Tablet PO (06:07)
[2022-06-11 06:18] LABS: Anion Gap 10.3 (5-19); Blood Urea Nitrogen 18 mg/dL (8-23); Calcium 8.1 mg/dL (8.5-10.5); Carbon Dioxide 26 mmol/L (22-29); Chloride 107 mmol/L (98-107); Glomerular Filtration Rate 84.5 mL/min (90-130); Glucose 86 mg/dL (65-115); Magnesium 1.7 mg/dL (1.7-2.3); Osmolality Calculated 289 mOsm/kg (285-295); Phosphorus 2.9 mg/dL (2.5-4.5); Potassium 4.3 mmol/L (3.5-5.1); Sodium 139 mmol/L (136-145)
[2022-06-11 06:35] LABS: Glucose Point of Care 81 mg/dL (70-110)
[2022-06-11] MEDS: aspirin 81 mg EC Tablet PO (08:20)
[2022-06-11] MEDS: ferrous gluconate 324 mg Tablet PO ×2 (08:20→16:48)
[2022-06-11] MEDS: LORazepam 1 mg Tablet PO ×2 (08:20→12:57)
[2022-06-11] MEDS: sertraline 50 mg Tablet PO (08:20)
[2022-06-11] MEDS: ipratropium-albuterol 3 mL Neb INHALATION ×3 (08:40→16:22)
[2022-06-11] MEDS: budesonide 0.5 mg/2 mL Neb INHALATION (08:40)
[2022-06-11 11:06] LABS: Glucose Point of Care 113 mg/dL (70-110)
--- NOTE | 2022-06-11 11:14 | PM.PN ---
Subjective Subjective: Patient continues to endorse left lower extremity swelling, erythema, warmth and pain. She was hypotensive overnight. Endorses generalized malaise and fatigue. Denies fevers, chills, nausea, or emesis. Medications: Reviewed: Yes Vitals/I&O/Wt Last Vital Signs Temp 98.1 F 06/11/22 07:47 Pulse 86 06/11/22 08:40 Resp 18 06/11/22 08:40 BP 98/63 06/11/22 07:47 Pulse Ox 94 06/11/22 08:40 O2 Del Method 06/11/22 08:40 O2 Flow Rate 2 06/11/22 08:40 06/10/22 06/11/22 06/11/22 22:59 06:59 14:59 Intake Total 550 / 2556. 360 / 360 Output Total 400 / 400 Balance 150 / 2156.7 360 / 360 Weight last 48 hrs Weight 83.688 kg Weight 75.75 kg Physical Exam Narrative: General: Patient is awake. Appears fatigued. Head: Normocephalic. Atraumatic. EOM intact. Neck: No JVD. Cardiovascular: No gallops. No murmurs. Blood pressure is soft. Lungs: Clear to auscultation, no use of accessory muscles, no crackles or wheezes. Skin: No jaundice. No rashes. Abdomen: Normal bowel sounds, abdomen soft and nontender. Umbilical hernia surgical site is clean dry and intact. Genito Urinary: Genital exam not performed since complaints not related. Rectal: Rectal exam not performed since no symptoms indicated blood loss. Extremities: Left lower extremity is markedly swollen with overlying erythema and warmth, similiar to prior exam. Bulla present. TTP. Musculoskeletal: Normal muscle development. Neurological: Moves all 4 extremities. No myoclonus. Data 06/11/22 05:31 06/11/22 05:31 Micro: Microbiology 06/10/22 14:33 Blood Culture - Preliminary Blood SPECIMEN COLLECTED 06/10/22 14:55 Blood Culture - Preliminary Blood SPECIMEN COLLECTED A&P Assessment and plan (1) Cellulitis: Cellulitis is severe with underlying edema, remains high risk for treatment failure Status post vancomycin and Zosyn (06/06-06/08) Uncertain what antibiotics, if any, he may have received at [facility] Blood cultures collected Continue vancomycin, pharmacy to dose (06/10-p) Continue ceftriaxone (06/10-p) Serial exams ID consult, when available (2) Hypotension: Hypotensive overnight, soft blood pressures this morning Not responding to treatment as intended Antihypertensives being held Hold Aldactone due to hypotension Hold Lasix due to hypotension Treat underlying infection Hemodynamic monitoring (3) Atrial fibrillation: Resume diltiazem when blood pressure improves (4) Type 2 diabetes mellitus: Sliding scale insulin correction Blood glucose goal of 110 to 180 Avoid hypoglycemia (5) Bilateral lower extremity edema: More overloaded on exam today, not responding to treatment as intended Secondary to chronic diastolic heart failure with preserved ejection fraction Diuretics on hold due to hypotension Daily assessment of volume High risk for exacerbation Strict I&Os Daily weights (6) Essential hypertension: Diuretics on hold due to hypotension Monitor blood pressure closely (7) Hx of deep venous thrombosis: Not on therapeutic anticoagulation DVT ppx ordered (8) Bipolar disorder in partial remission: Continue home abilify (9) Hypothyroidism: Continue Synthroid Plan DVT ppx: Lovenox Code Status: Full Code Attestations Medical Necessity Statement*: Patient requires ongoing hospitalization for culture surveillance, IV antibiotics, hemodynamic monitoring, CHF management, and ID consultation. Coding Level of Care Code Acute Site Supervising Technical Operator for [facility] Fwd Diagnoses Cellulitis L03.90 Hypotension I95.9 Atrial fibrillation I48.91 Type 2 diabetes mellitus E11.9 Bilateral lower extremity edema R60.0 Essential hypertension I10 Hx of deep venous thrombosis Z86.718 Bipolar disorder in partial remission F31.70 Hypothyroidism E03.9
--- NOTE | 2022-06-11 11:43 | PC.CHAP ---
Pastoral Care Encounter/Spiritual Assessment Type of Contact [] Declined investigation specialist visit [] Patient/Family/Request visit [] Outpatient visit [] Follow-up visit [] Physician referral [] Code/Alert [x] Routine visit [] Staff referral [] Actively dying [x] Patient sleeping [] Family support [] [] Out of room [] Palliative care [] [] Receiving care in room [] Pre-surgical visit [] Trauma [] Long length of stay [] ICU visit [] Other: Relational/Emotional Strength [] Patient feels connected with others/family/visitors/staff [] Distress [] Loneliness/isolation [] Abandonment Spirituality of Patient [] Person of Flaca [] Attends Uatsdin of their Flaca [] Believes in Prayer [] Reads Bible or Jainism materials [] There are Spiritual issues to be addressed Sales Promoter Interventions [] Prayer [] Active listening [] Non-anxious presence [] Spiritual/emotional support [] Crisis/trauma care [] Spiritual counseling [] Bereavement support [] Provided bereavement packet [] Provided Bible/devotional materials [] Provided toy/stuffed animal, coloring book to patient or family member [] Provided Communion [] Anointing/[place] [] Salvation [] Completed spiritual assessment [] Other: Impact on Illness or Injury [] Angry [] Fearful [] Anxious [] Often cries [] Exhaustion [] Unable to work [] Unable to attend hinduism [] Unable to walk/stand [] Unable to read [] Unable to drive [] Unable to eat/drink [] Unable to sleep [] Unable to be with family [] Patient intubated [] Other: Summary Time spent with patient
[2022-06-11] MEDS: clindamycin 600 MG/50 ML PREMIX 100 MG IV ×2 (12:57→21:06)
--- NOTE | 2022-06-11 13:11 | PC.OT ---
Patient declined OT services. Nursing notified.
[2022-06-11] MEDS: vancomycin 1,000 MG in sodium chloride 0.9% 250 ML 250 MG IV (15:14)
[2022-06-11] MEDS: cefTRIAXone 2,000 MG in sodium chloride 0.9% (plus) 50 ML 100 MG IV (16:46)
[2022-06-11] MEDS: enoxaparin 40 mg/0.4 mL Syringe SUBCUT (16:46)
[2022-06-11 16:58] LABS: Glucose Point of Care 86 mg/dL (70-110)
[2022-06-11] MEDS: ARIPiprazole 10 mg Tablet 5 MG PO (21:06)
[2022-06-11] MEDS: sotalol 80 mg Tablet PO (21:06)
[2022-06-11] MEDS: trazodone 100 mg Tablet PO (21:06)
[2022-06-11 21:39] LABS: Glucose Point of Care 111 mg/dL (70-110)
[2022-06-12] VITALS (9 sets, daily range): BP systolic 94–120; BP diastolic 56–77; PULSE 65–108; RESP 16–23; TEMP 36.4–36.8; O2SAT 93–98
[2022-06-12] MEDS: vancomycin 1,000 MG in sodium chloride 0.9% 250 ML 250 MG IV ×2 (02:31→14:24)
[2022-06-12] MEDS: clindamycin 600 MG/50 ML PREMIX 100 MG IV ×3 (05:02→20:55)
[2022-06-12] MEDS: levothyroxine 150 mcg Tablet PO (05:02)
[2022-06-12 05:44] LABS: Basophils # 0.1 10^3/uL (0.0-0.1); Basophils % 0.7 %; Eosinophils # 0.2 10^3/uL (0.0-0.8); Eosinophils % 2.2 %; Hematocrit 36.6 % (37.0-47.0); Hemoglobin 11.3 g/dL (11.5-15.3); Lymphocytes # 1.4 10^3/uL (0.8-4.8); Lymphocytes % 13.1 %; Mean Corpuscular HGB Conc 30.9 g/dL (30.0-36.0); Mean Corpuscular Hemoglobin 29.2 pg (28.0-34.0); Mean Corpuscular Volume 94.6 fl (81-99); Mean Platelet Volume 9.7 fL (7.4-10.4); Monocytes # 0.8 10^3/uL (0.2-0.9); Neutrophils # 7.21 10^3/uL (1.8-7.7); Neutrophils % 68.4 %; Nucleated Red Blood Cells % 0 %; Platelet Count 286 10^3/cmm (130-400); Red Blood Count 3.87 10^6/uL (4.1-5.3); Red Cell Distribution Width 15.1 % (12.1-15.1); White Blood Count 10.5 10^3/uL (4.0-10.0)
[2022-06-12 06:02] LABS: Albumin Level 2.7 g/dL (3.5-5.2); Anion Gap 12.4 (5-19); Blood Urea Nitrogen 13 mg/dL (8-23); Calcium 8.2 mg/dL (8.5-10.5); Carbon Dioxide 24 mmol/L (22-29); Chloride 107 mmol/L (98-107); Glucose 105 mg/dL (65-115); Potassium 4.4 mmol/L (3.5-5.1); Sodium 139 mmol/L (136-145)
[2022-06-12 06:34] LABS: Slide Review Slide Review Perform
[2022-06-12 07:23] LABS: Glucose Point of Care 112 mg/dL (70-110)
[2022-06-12] MEDS: cefTRIAXone 2,000 MG in sodium chloride 0.9% (plus) 50 ML 100 MG IV (08:31)
[2022-06-12] MEDS: dilTIAZem ER (24HR) 180 mg Capsule PO (08:31)
[2022-06-12] MEDS: sertraline 50 mg Tablet PO (08:31)
[2022-06-12] MEDS: ferrous gluconate 324 mg Tablet PO ×2 (08:31→16:53)
[2022-06-12] MEDS: sotalol 80 mg Tablet PO ×2 (08:31→20:55)
[2022-06-12] MEDS: aspirin 81 mg EC Tablet PO (08:31)
[2022-06-12] MEDS: budesonide 0.5 mg/2 mL Neb INHALATION ×2 (09:01→19:52)
[2022-06-12] MEDS: ipratropium-albuterol 3 mL Neb INHALATION ×2 (09:01→19:52)
--- NOTE | 2022-06-12 09:29 | PM.PN ---
Subjective Subjective: Patient reports continued left lower extremity swelling, erythema, warmth and pain. She thinks it may be a little bit better today. Endorses diffuse weakness. Blood pressure remains soft. Afebrile. Medications: Reviewed: Yes Vitals/I&O/Wt Last Vital Signs Temp 97.9 F 06/12/22 08:00 Pulse 108 H 06/12/22 09:00 Resp 18 06/12/22 09:00 BP 120/77 06/12/22 08:00 Pulse Ox 93 06/12/22 09:00 O2 Del Method 06/12/22 09:00 O2 Flow Rate 2 06/12/22 09:00 06/11/22 06/12/22 06/12/22 22:59 06:59 14:59 Intake Total 880 / 1480 300 / 1780 480 / 480 Output Total 450 / 450 300 / 750 300 / 300 Balance 430 / 1030 0 / 1030 180 / 180 Weight last 48 hrs Weight 84.368 kg Weight 83.688 kg Weight 75.75 kg Physical Exam Narrative: General: Patient is awake. Appears fatigued. Head: Normocephalic. Atraumatic. EOM intact. Neck: No JVD. Cardiovascular: No gallops. No murmurs. Tachycardic. Lungs: Breath sounds diminished in bilateral bases. No use of accessory muscles, no crackles or wheezes. Skin: No jaundice. No rashes. Abdomen: Normal bowel sounds, abdomen soft and nontender. Umbilical hernia surgical site is clean dry and intact. Genito Urinary: Genital exam not performed since complaints not related. Rectal: Rectal exam not performed since no symptoms indicated blood loss. Extremities: Left lower extremity is swollen with overlying erythema and warmth, improved from prior exam. Bulla present. Musculoskeletal: Normal muscle development. Neurological: Moves all 4 extremities. No myoclonus. Data 06/12/22 05:01 06/12/22 05:01 Micro: Microbiology 06/10/22 19:15 Urine Culture - Final Urine,Clean Catch 06/10/22 14:33 Blood Culture - Preliminary Blood NEGATIVE TO DATE 06/10/22 14:55 Blood Culture - Preliminary Blood NEGATIVE TO DATE A&P Assessment and plan (1) Cellulitis: Cellulitis is severe with underlying edema High risk for treatment failure Status post vancomycin and Zosyn (06/06-06/08) BCx NGTD Continue vancomycin, pharmacy to dose (06/10-p) Continue ceftriaxone (06/10-p) PICC line (2) Hypotension: Blood pressure remains soft, not responding to treatment as intended Antihypertensives being held Hold Aldactone due to hypotension Hold Lasix due to hypotension Treat underlying infection Hemodynamic monitoring (3) Atrial fibrillation: Resume diltiazem when blood pressure improves (4) Type 2 diabetes mellitus: Sliding scale insulin correction Blood glucose goal of 110 to 180 Avoid hypoglycemia (5) Bilateral lower extremity edema: Secondary to chronic diastolic heart failure with preserved ejection fraction Diuretics on hold due to hypotension Daily assessment of volume High risk for exacerbation Strict I&Os Daily weights (6) Essential hypertension: Diuretics on hold Monitor blood pressure closely (7) Hx of deep venous thrombosis: Not on therapeutic anticoagulation DVT ppx (8) Bipolar disorder in partial remission: Continue home abilify (9) Hypothyroidism: Continue Synthroid Plan DVT ppx: Lovenox Code Status: Full Code Attestations Medical Necessity Statement*: Patient requires ongoing hospitalization for IV antibiotics, hemodynamic monitoring, CHF management, and follow up cultures. Coding Level of Care Code Acute Hat Steamer for [facility] Fwd Diagnoses Cellulitis L03.90 Hypotension I95.9 Atrial fibrillation I48.91 Type 2 diabetes mellitus E11.9 Bilateral lower extremity edema R60.0 Essential hypertension I10 Hx of deep venous thrombosis Z86.718 Bipolar disorder in partial remission F31.70 Hypothyroidism E03.9
[2022-06-12 11:56] LABS: Glucose Point of Care 131 mg/dL (70-110)
[2022-06-12] MEDS: enoxaparin 40 mg/0.4 mL Syringe SUBCUT (16:53)
[2022-06-12 17:11] LABS: Glucose Point of Care 89 mg/dL (70-110)
[2022-06-12 20:55] LABS: Glucose Point of Care 163 mg/dL (70-110)
[2022-06-12] MEDS: sennosides 8.6 mg Tablet 17.2 MG PO (20:55)
[2022-06-12] MEDS: ARIPiprazole 10 mg Tablet 5 MG PO (20:55)
[2022-06-12] MEDS: trazodone 100 mg Tablet PO (20:55)
[2022-06-12] MEDS: insulin lispro 100 unit/1 mL SUBCUT (21:14)
--- NOTE | 2022-06-12 21:39 | PC.NURSE ---
MOVE Pt moved to room 277-1 due to loudness of roommate who is confused and hollering out freq
[2022-06-13] VITALS (11 sets, daily range): BP systolic 85–118; BP diastolic 49–81; PULSE 71–99; RESP 16–20; TEMP 36.4–36.8; O2SAT 94–98
[2022-06-13 01:26] LABS: Vancomycin Trough 14.2 ug/mL (10-15)
[2022-06-13] MEDS: vancomycin 1,000 MG in sodium chloride 0.9% 250 ML 250 MG IV ×2 (01:35→16:43)
[2022-06-13] MEDS: levothyroxine 150 mcg Tablet PO (05:15)
[2022-06-13] MEDS: clindamycin 600 MG/50 ML PREMIX 100 MG IV ×3 (05:15→20:08)
[2022-06-13 06:19] LABS: Glucose Point of Care 107 mg/dL (70-110)
[2022-06-13] MEDS: dilTIAZem ER (24HR) 180 mg Capsule PO (08:15)
[2022-06-13] MEDS: aspirin 81 mg EC Tablet PO (08:15)
[2022-06-13] MEDS: cefTRIAXone 2,000 MG in sodium chloride 0.9% (plus) 50 ML 100 MG IV (08:15)
[2022-06-13] MEDS: sertraline 50 mg Tablet PO (08:15)
[2022-06-13] MEDS: ferrous gluconate 324 mg Tablet PO ×2 (08:15→16:44)
[2022-06-13] MEDS: sotalol 80 mg Tablet PO ×2 (08:15→20:04)
[2022-06-13] MEDS: ipratropium-albuterol 3 mL Neb INHALATION ×3 (08:35→22:35)
[2022-06-13] MEDS: budesonide 0.5 mg/2 mL Neb INHALATION ×2 (08:35→22:35)
--- NOTE | 2022-06-13 09:02 | PM.PN ---
Subjective Subjective: Patient reports her left lower extremity seems to be improving. Does stll endorse pain, warmth and swelling but reports it is improving daily. Endorses good appetite. Denies fevers, chills, nausea or emesis. Medications: Reviewed: Yes Vitals/I&O/Wt Last Vital Signs Temp 97.7 F 06/13/22 07:48 Pulse 90 06/13/22 08:38 Resp 20 H 06/13/22 08:38 BP 106/71 06/13/22 07:48 Pulse Ox 98 06/13/22 08:38 O2 Del Method 06/13/22 08:38 O2 Flow Rate 2 06/13/22 08:38 06/12/22 06/13/22 06/13/22 22:59 06:59 14:59 Intake Total 540 / 1360 600 / 1960 Output Total 200 / 500 400 / 900 Balance 340 / 860 200 / 1060 Weight last 48 hrs Weight 86.273 kg Weight 84.368 kg Physical Exam Narrative: General: Patient is awake. Alert. Head: Normocephalic. Atraumatic. EOM intact. Neck: No JVD. Cardiovascular: No gallops. No murmurs. Tachycardic. Lungs: Breath sounds diminished in bilateral bases. No use of accessory muscles, no crackles or wheezes. Skin: No jaundice. No rashes. Abdomen: Normal bowel sounds, abdomen soft and nontender. Umbilical hernia surgical site is clean dry and intact. Genito Urinary: Genital exam not performed since complaints not related. Rectal: Rectal exam not performed since no symptoms indicated blood loss. Extremities: Left lower extremity is swollen with overlying erythema and warmth. Musculoskeletal: Normal muscle development. Neurological: Moves all 4 extremities. No myoclonus. Data 06/12/22 05:01 06/12/22 05:01 Micro: Microbiology 06/10/22 19:15 Urine Culture - Final Urine,Clean Catch A&P Assessment and plan (1) Cellulitis: Cellulitis is severe with underlying edema Status post vancomycin and Zosyn (06/06-06/08) BCx NGTD Continue vancomycin, pharmacy to dose (06/10-p) Continue ceftriaxone (06/10-) (2) Hypotension: Blood pressure remains soft, not responding to treatment as intended Antihypertensives being held Hold Aldactone due to hypotension Hold Lasix due to hypotension Treat underlying infection Hemodynamic monitoring (3) Atrial fibrillation: Resume diltiazem when blood pressure improves (4) Type 2 diabetes mellitus: Sliding scale insulin correction Blood glucose goal of 110 to 180 Avoid hypoglycemia (5) Bilateral lower extremity edema: Secondary to chronic diastolic heart failure with preserved ejection fraction Diuretics on hold due to hypotension Daily assessment of volume High risk for exacerbation Strict I&Os Daily weights (6) Essential hypertension: Diuretics on hold Monitor blood pressure closely (7) Hx of deep venous thrombosis: Not on therapeutic anticoagulation DVT ppx (8) Bipolar disorder in partial remission: Continue home abilify (9) Hypothyroidism: Continue Synthroid Plan DVT ppx: Lovenox Code Status: Full Code Attestations Medical Necessity Statement*: Patient requires ongoing hospitalization for IV antibiotics, hemodynamic monitoring, CHF management, and follow up cultures Coding Level of Care Code Acute Supervisor Coin Machine for [facility] Fwd Diagnoses Cellulitis L03.90 Hypotension I95.9 Atrial fibrillation I48.91 Type 2 diabetes mellitus E11.9 Bilateral lower extremity edema R60.0 Essential hypertension I10 Hx of deep venous thrombosis Z86.718 Bipolar disorder in partial remission F31.70 Hypothyroidism E03.9
[2022-06-13 11:48] LABS: Glucose Point of Care 103 mg/dL (70-110)
[2022-06-13 16:34] LABS: Glucose Point of Care 156 mg/dL (70-110)
[2022-06-13] MEDS: enoxaparin 40 mg/0.4 mL Syringe SUBCUT (16:44)
[2022-06-13] MEDS: insulin lispro 100 unit/1 mL SUBCUT (17:50)
[2022-06-13] MEDS: trazodone 100 mg Tablet PO (20:04)
[2022-06-13] MEDS: ARIPiprazole 10 mg Tablet 5 MG PO (20:04)
[2022-06-14] VITALS (14 sets, daily range): BP systolic 97–118; BP diastolic 56–78; PULSE 64–94; RESP 16–20; TEMP 36.5–36.7; O2SAT 93–98
[2022-06-14] MEDS: vancomycin 1,000 MG in sodium chloride 0.9% 250 ML 250 MG IV ×2 (01:24→15:13)
[2022-06-14] MEDS: clindamycin 600 MG/50 ML PREMIX 100 MG IV ×3 (04:27→20:35)
[2022-06-14] MEDS: levothyroxine 150 mcg Tablet PO (05:20)
[2022-06-14 06:29] LABS: Albumin Level 2.8 g/dL (3.5-5.2); Anion Gap 11.3 (5-19); Blood Urea Nitrogen 9 mg/dL (8-23); Calcium 8.6 mg/dL (8.5-10.5); Carbon Dioxide 24 mmol/L (22-29); Chloride 105 mmol/L (98-107); Glucose 82 mg/dL (65-115); Phosphorus 4.2 mg/dL (2.5-4.5); Potassium 4.3 mmol/L (3.5-5.1); Sodium 136 mmol/L (136-145)
[2022-06-14] MEDS: ipratropium-albuterol 3 mL Neb INHALATION ×2 (07:51→15:06)
[2022-06-14] MEDS: budesonide 0.5 mg/2 mL Neb INHALATION (07:51)
--- NOTE | 2022-06-14 07:52 | P.PN_ITS ---
Subjective Subjective: Patient reports ongoing lower extremity swelling, erythema and pain which is improving daily. Noted to be hypotensive again this morning. Denies nausea, emesis, shortness of breath or chest pain. Medications: Reviewed: Yes Vitals/I&O/Wt Last Vital Signs Temp 97.7 F 06/14/22 04:00 Pulse 78 06/14/22 05:41 Resp 20 H 06/14/22 04:00 BP 105/77 06/14/22 07:39 Pulse Ox 96 06/14/22 04:00 O2 Del Method 06/14/22 07:39 O2 Flow Rate 2 06/13/22 16:00 06/13/22 06/14/22 06/14/22 22:59 06:59 14:59 Intake Total 590 / 1190 240 / 1430 Output Total 350 / 350 Balance 590 / 1190 -110 / 1080 Weight last 48 hrs Weight 85.445 kg Weight 86.273 kg Physical Exam Narrative: General: Patient is awake. Alert. Head: Normocephalic. Atraumatic. EOM intact. Neck: No JVD. Cardiovascular: No gallops. No murmurs. Tachycardic. Lungs: Breath sounds diminished in bilateral bases. No use of accessory muscles, no crackles or wheezes. On room air. Skin: No jaundice. No rashes. Abdomen: Normal bowel sounds, abdomen soft and nontender. Umbicical surgical wound c/d/i. Genito Urinary: Genital exam not performed since complaints not related. Rectal: Rectal exam not performed since no symptoms indicated blood loss. Extremities: Left lower extremity is swollen with overlying erythema and warmth, improved from prior exam. Musculoskeletal: Normal muscle development. Neurological: Moves all 4 extremities. No myoclonus. Data 06/12/22 05:01 06/14/22 05:46 A&P Assessment and plan (1) Cellulitis: Status post vancomycin and Zosyn (06/06-06/08) BCx NGTD Continue vancomycin, pharmacy to dose (06/10-p) Continue ceftriaxone (06/10-p) (2) Hypotension: Hypotensives again this morning, not responding to treatment as intended Antihypertensives being held Hold Aldactone due to hypotension Hold Lasix due to hypotension Treat underlying infection Hemodynamic monitoring (3) Atrial fibrillation: Resume diltiazem when blood pressure improves (4) Type 2 diabetes mellitus: Sliding scale insulin correction Blood glucose goal of 110 to 180 Avoid hypoglycemia (5) Bilateral lower extremity edema: Secondary to chronic diastolic heart failure with preserved ejection fraction Diuretics on hold due to hypotension Daily assessment of volume High risk for exacerbation Strict I&Os Daily weights (6) Essential hypertension: Diuretics on hold Monitor blood pressure closely (7) Hx of deep venous thrombosis: Not on therapeutic anticoagulation DVT ppx (8) Bipolar disorder in partial remission: Continue home abilify (9) Hypothyroidism: Continue Synthroid Plan DVT ppx: Lovenox Code Status: Full Code Attestations Medical Necessity Statement*: Patient requires ongoing hospitalization for IV antibiotics, hemodynamic monitoring, CHF management, and follow up cultures Coding Level of Care Code Acute [employer] Officer for [facility] Fwd Diagnoses Cellulitis L03.90 Hypotension I95.9 Atrial fibrillation I48.91 Type 2 diabetes mellitus E11.9 Bilateral lower extremity edema R60.0 Essential hypertension I10 Hx of deep venous thrombosis Z86.718 Bipolar disorder in partial remission F31.70 Hypothyroidism E03.9
[2022-06-14] MEDS: aspirin 81 mg EC Tablet PO (08:30)
[2022-06-14] MEDS: sertraline 50 mg Tablet PO (08:30)
[2022-06-14] MEDS: cefTRIAXone 2,000 MG in sodium chloride 0.9% (plus) 50 ML 100 MG IV (08:30)
[2022-06-14] MEDS: sotalol 80 mg Tablet PO ×2 (08:30→20:34)
[2022-06-14] MEDS: ferrous gluconate 324 mg Tablet PO ×2 (08:30→19:10)
[2022-06-14 11:14] LABS: Glucose Point of Care 125 mg/dL (70-110)
[2022-06-14] MEDS: enoxaparin 40 mg/0.4 mL Syringe SUBCUT (16:22)
[2022-06-14 17:11] LABS: Glucose Point of Care 93 mg/dL (70-110)
[2022-06-14] MEDS: ARIPiprazole 10 mg Tablet 5 MG PO (20:33)
[2022-06-14] MEDS: sennosides 8.6 mg Tablet 17.2 MG PO (20:34)
[2022-06-14] MEDS: trazodone 100 mg Tablet PO (20:34)
[2022-06-14 21:21] LABS: Glucose Point of Care 88 mg/dL (70-110)
[2022-06-15] VITALS (13 sets, daily range): BP systolic 92–123; BP diastolic 54–69; PULSE 66–114; RESP 15–18; TEMP 36.3–36.7; O2SAT 94–99
[2022-06-15] MEDS: vancomycin 1,000 MG in sodium chloride 0.9% 250 ML 250 MG IV ×2 (01:14→15:06)
[2022-06-15] MEDS: clindamycin 600 MG/50 ML PREMIX 100 MG IV ×3 (05:05→20:20)
[2022-06-15] MEDS: levothyroxine 150 mcg Tablet PO (05:06)
[2022-06-15 06:32] LABS: Glucose Point of Care 93 mg/dL (70-110)
--- NOTE | 2022-06-15 06:55 | PC.NURSE ---
22G IV initiated to right hand x 2 attempts, successful, pt tolerated well. Good blood return noted and flushes w/ease.
[2022-06-15] MEDS: ipratropium-albuterol 3 mL Neb INHALATION ×4 (08:45→20:07)
[2022-06-15] MEDS: cefTRIAXone 2,000 MG in sodium chloride 0.9% (plus) 50 ML 100 MG IV (08:58)
--- NOTE | 2022-06-15 09:04 | PM.PN ---
Subjective Subjective: Patient reports she is feeling better. Reports he lower extremity swelling, erythema and pain is getting better. Endorses desire to go home soon. Blood pressure remains on the soft side. Denies fevers, chills, chest pain or shortness of breath. Medications: Reviewed: Yes Vitals/I&O/Wt Last Vital Signs Temp 97.8 F 06/15/22 08:00 Pulse 90 06/15/22 08:00 Resp 16 06/15/22 08:00 BP 100/65 06/15/22 08:00 Pulse Ox 96 06/15/22 08:00 O2 Del Method 06/15/22 08:00 O2 Flow Rate 2 06/15/22 08:00 06/14/22 06/15/22 06/15/22 22:59 06:59 14:59 Intake Total 640 / 1240 300 / 1540 Output Total 720 / 720 Balance 640 / 1240 -420 / 820 Weight last 48 hrs Weight 85.304 kg Weight 85.445 kg Physical Exam Narrative: General: Patient is awake. Alert. Very pleasant. Head: Normocephalic. Atraumatic. Neck: No JVD. Cardiovascular: No gallops. No murmurs. Lungs: Breath sounds diminished in bilateral bases. No use of accessory muscles, no crackles or wheezes. On room air. Skin: No jaundice. No rashes. Abdomen: Normal bowel sounds, abdomen soft and nontender. Umbicical surgical wound c/d/i. Genito Urinary: Genital exam not performed since complaints not related. Rectal: Rectal exam not performed since no symptoms indicated blood loss. Extremities: Left lower extremity is swollen with overlying skin changes, improved from prior examinations. Musculoskeletal: Normal muscle development. Neurological: Moves all 4 extremities. No myoclonus. Data 06/12/22 05:01 06/14/22 05:46 A&P Assessment and plan (1) Cellulitis: Status post vancomycin and Zosyn (06/06-06/08) BCx NGTD Continue vancomycin, pharmacy to dose (06/10-p) Continue ceftriaxone (06/10-p) Cellulitis is improving Possible trial of oral antibiotics in the next 24-48 hours (2) Hypotension: Blood pressure remains soft Antihypertensives being held Hold Aldactone due to hypotension Hold Lasix due to hypotension Treat underlying infection Hemodynamic monitoring (3) Atrial fibrillation: Continue diltiazem (4) Type 2 diabetes mellitus: Sliding scale insulin correction Blood glucose goal of 110 to 180 Avoid hypoglycemia (5) Bilateral lower extremity edema: Secondary to chronic diastolic heart failure with preserved ejection fraction Diuretics on hold due to hypotension Daily assessment of volume High risk for exacerbation Strict I&Os Daily weights (6) Essential hypertension: Diuretics on hold Monitor blood pressure closely (7) Hx of deep venous thrombosis: Not on therapeutic anticoagulation DVT ppx (8) Bipolar disorder in partial remission: Continue home abilify (9) Hypothyroidism: Continue Synthroid Plan DVT ppx: Lovenox Code Status: Full Code Attestations Medical Necessity Statement*: Patient requires ongoing hospitalization for IV antibiotics, hemodynamic monitoring, CHF management, and follow up cultures Coding Level of Care Code Acute Senior Design Engineering Specialist for [facility] Fw Diagnoses Cellulitis L03.90 Hypotension I95.9 Atrial fibrillation I48.91 Type 2 diabetes mellitus E11.9 Bilateral lower extremity edema R60.0 Essential hypertension I10 Hx of deep venous thrombosis Z86.718 Bipolar disorder in partial remission F31.70 Hypothyroidism E03.9
[2022-06-15] MEDS: aspirin 81 mg EC Tablet PO (09:14)
[2022-06-15] MEDS: sertraline 50 mg Tablet PO (09:14)
[2022-06-15] MEDS: ferrous gluconate 324 mg Tablet PO ×2 (09:22→17:27)
[2022-06-15] MEDS: sotalol 80 mg Tablet PO ×2 (09:23→20:20)
[2022-06-15] MEDS: dilTIAZem ER (24HR) 180 mg Capsule PO (09:38)
[2022-06-15 11:27] LABS: Glucose Point of Care 121 mg/dL (70-110)
[2022-06-15 17:15] LABS: Glucose Point of Care 88 mg/dL (70-110)
[2022-06-15] MEDS: enoxaparin 40 mg/0.4 mL Syringe SUBCUT (17:27)
[2022-06-15] MEDS: budesonide 0.5 mg/2 mL Neb INHALATION (20:07)
[2022-06-15] MEDS: ARIPiprazole 10 mg Tablet 5 MG PO (20:19)
[2022-06-15] MEDS: sennosides 8.6 mg Tablet 17.2 MG PO (20:20)
[2022-06-15] MEDS: trazodone 100 mg Tablet PO (20:20)
[2022-06-15 20:56] LABS: Glucose Point of Care 105 mg/dL (70-110)
[2022-06-16] VITALS (7 sets, daily range): BP systolic 113–144; BP diastolic 69–84; PULSE 81–92; RESP 16–18; TEMP 36.4–36.6; O2SAT 93–97
[2022-06-16] MEDS: vancomycin 1,000 MG in sodium chloride 0.9% 250 ML 250 MG IV (01:14)
[2022-06-16 04:22] LABS: Basophils % 0.4 %; Eosinophils # 0.2 10^3/uL (0.0-0.8); Eosinophils % 2.1 %; Hematocrit 33.9 % (37.0-47.0); Lymphocytes # 1.4 10^3/uL (0.8-4.8); Lymphocytes % 14.5 %; Mean Corpuscular HGB Conc 32.4 g/dL (30.0-36.0); Mean Corpuscular Hemoglobin 29.4 pg (28.0-34.0); Mean Corpuscular Volume 90.6 fl (81-99); Mean Platelet Volume 9.6 fL (7.4-10.4); Monocytes % 10.7 %; Neutrophils # 6.44 10^3/uL (1.8-7.7); Neutrophils % 69.3 %; Nucleated Red Blood Cells % 0 %; Platelet Count 247 10^3/cmm (130-400); Red Blood Count 3.74 10^6/uL (4.1-5.3); Red Cell Distribution Width 14.8 % (12.1-15.1); White Blood Count 9.3 10^3/uL (4.0-10.0)
[2022-06-16 04:42] LABS: Albumin Level 2.9 g/dL (3.5-5.2); Blood Urea Nitrogen 8 mg/dL (8-23); Calcium 8.6 mg/dL (8.5-10.5); Carbon Dioxide 25 mmol/L (22-29); Chloride 97 mmol/L (98-107); Glucose 103 mg/dL (65-115); Magnesium 1.8 mg/dL (1.7-2.3); Phosphorus 3.7 mg/dL (2.5-4.5); Sodium 129 mmol/L (136-145)
[2022-06-16] MEDS: levothyroxine 150 mcg Tablet PO (05:25)
[2022-06-16] MEDS: clindamycin 600 MG/50 ML PREMIX 100 MG IV (05:25)
[2022-06-16 06:20] LABS: Glucose Point of Care 100 mg/dL (70-110)
[2022-06-16] MEDS: budesonide 0.5 mg/2 mL Neb INHALATION (07:26)
[2022-06-16] MEDS: ipratropium-albuterol 3 mL Neb INHALATION (07:26)
[2022-06-16] MEDS: sotalol 80 mg Tablet PO (08:00)
[2022-06-16] MEDS: aspirin 81 mg EC Tablet PO (08:00)
[2022-06-16] MEDS: ferrous gluconate 324 mg Tablet PO (08:00)
[2022-06-16] MEDS: sertraline 50 mg Tablet PO (08:00)
[2022-06-16] MEDS: cefTRIAXone 2,000 MG in sodium chloride 0.9% (plus) 50 ML 100 MG IV (08:01)
--- NOTE | 2022-06-16 10:16 | P.DS_ITS ---
Discharge Providers Date of Admission: 06/10/22 16:45 Date of Discharge: June 16, 2022 Attending Provider at Admission: Joshua Pendleton MD Attending Provider at Discharge: Joshua Pendleton MD Consults: None Primary Care Provider: Zachary Trent Diagnoses at Discharge Discharge Diagnosis (1) Cellulitis: Status: Acute (2) Hypotension: Status: Acute (3) Atrial fibrillation: Status: Acute (4) Type 2 diabetes mellitus: Status: Acute (5) Bilateral lower extremity edema: Status: Acute (6) Essential hypertension: Status: Acute (7) Hx of deep venous thrombosis: Status: Acute (8) Bipolar disorder in partial remission: Status: Acute Permanent problem details: The patient denies history of euphoria, decreased need for sleep, increase in energy, racing thoughts, pressured speech, spending sprees etc. Therefore this diagnosis is removed. (9) Hypothyroidism: Status: Acute Reason for Visit Reason for Visit: BILATERAL PITTING EDEMA Hospital Course Hospital Course Ivette Wheeler is a 62 year old female with a past medical history significant for atrial fibrillation, bipolar disorder, dyslipidemia, hypertension, deep vein thrombosis, pulmonary hypertension, and type 2 diabetes mellitus who presents to the emergency department with with worsening severe left lower extremity cellulitis and hypotension.?She was treated with broad spectrum antibiotics (vancomycin, clindamycin, ceftriaxone) with improvement in symptomatology. She was transitioned to cefdinir and doxycycline at discharge. She was counseled on return precautions. Per her hypotension, diuretics were held and she was treated with IV fluids with improvement in blood pressure. Diuretics were held at discharge until she can follow up with primary care provider for further management of her diuretics. She was discharged back to facility in stable condition. Physical Exam Narrative: General: Patient is awake and alert. Head:? Normocephalic. Atraumatic. Neck: No JVD. Cardiovascular: No gallops. No murmurs. Lungs: Breath sounds diminished in bilateral bases. No use of accessory muscles, no crackles or wheezes.? On room air. Skin: No jaundice. No rashes. Abdomen: Normal bowel sounds, abdomen soft and nontender.? Umbicical surgical wound c/d/i. Genito Urinary: Genital exam not performed since complaints not related. Rectal: Rectal exam not performed since no symptoms indicated blood loss. Extremities: Left lower extremity is mildly swollen with overlying skin changes. Musculoskeletal: Normal muscle development. Neurological: Moves all 4 extremities. No myoclonus. Discharge Data Studies Completed and Pending Completed Studies During Hospitalization Category Date Time Status XR chest 1V portable [id number] Stat Exams 06/10/22 13:25 Completed US venous duplex lower extremity LT [CV venous duplex Ultrasound 06/10/22 13:44 [place] [id number]] Stat Radiology Impressions Chest X-Ray 06/10/22 13:25 IMPRESSION: 1. No acute findings. 2. Metallic sternotomy wires are present. Laboratory Results WBC 9.3 10^3/uL (4.0-10.0) 06/16/22 03:45 RBC 3.74 10^6/uL (4.1-5.3) L 06/16/22 03:45 Hgb 11.0 g/dL (11.5-15.3) L 06/16/22 03:45 Hct 33.9 % (37.0-47.0) L 06/16/22 03:45 MCV 90.6 fl (81-99) 06/16/22 03:45 MCH 29.4 pg (28.0-34.0) 06/16/22 03:45 MCHC 32.4 g/dL (30.0-36.0) 06/16/22 03:45 RDW 14.8 % (12.1-15.1) 06/16/22 03:45 Plt Count 247 10^3/cmm (130-400) 06/16/22 03:45 MPV 9.6 fL (7.4-10.4) 06/16/22 03:45 Neut % (Auto) 69.3 % 06/16/22 03:45 Lymph % (Auto) 14.5 % 06/16/22 03:45 [place] % (Auto) 10.7 % 06/16/22 03:45 Eos % (Auto) 2.1 % 06/16/22 03:45 Baso % (Auto) 0.4 % 06/16/22 03:45 Neut # (Auto) 6.44 10^3/uL (1.8-7.7) 06/16/22 03:45 Lymph # (Auto) 1.4 10^3/uL (0.8-4.8) 06/16/22 03:45 [place] # (Auto) 1.0 10^3/uL (0.2-0.9) H 06/16/22 03:45 Eos # (Auto) 0.2 10^3/uL (0.0-0.8) 06/16/22 03:45 Baso # (Auto) 0.0 10^3/uL (0.0-0.1) 06/16/22 03:45 Nucleated RBC % (auto) 0 % 06/16/22 03:45 Nucleated RBCs # 0.0 /100WBC 06/16/22 03:45 Sodium 129 mmol/L (136-145) L 06/16/22 03:45 Potassium 4.0 mmol/L (3.5-5.1) 06/16/22 03:45 Chloride 97 mmol/L (98-107) L 06/16/22 03:45 Carbon Dioxide 25 mmol/L (22-29) 06/16/22 03:45 Anion Gap 11.0 (5-19) 06/16/22 03:45 BUN 8 mg/dL (8-23) 06/16/22 03:45 Creatinine 0.6 mg/dL (0.5-0.9) 06/16/22 03:45 GFR Calculation 101.0 mL/min (90-130) 06/16/22 03:45 Glucose 103 mg/dL (65-115) 06/16/22 03:45 POC Glucose 100 mg/dL (70-110) 06/16/22 06:03 Calculated Osmolality 289 mOsm/kg (285-295) 06/11/22 05:31 Lactic Acid 1.9 mmol/L (0.5-2.2) 06/10/22 14:55 Calcium 8.6 mg/dL (8.5-10.5) 06/16/22 03:45 Phosphorus 3.7 mg/dL (2.5-4.5) 06/16/22 03:45 Magnesium 1.8 mg/dL (1.7-2.3) 06/16/22 03:45 Total Bilirubin 0.7 mg/dL (0.15-1.2) 06/10/22 14:55 AST 22 U/L (0-32) 06/10/22 14:55 ALT 13 U/L (0-33) 06/10/22 14:55 Alkaline Phosphatase 71 U/L (35-105) 06/10/22 14:55 Troponin T Baseline 10 ng/L (0-10) 06/10/22 14:55 Troponin T 120 Minute 10.04 ng/L (0-10) H 06/10/22 16:23 Delta Troponin T 0.04 ABS# (0-10) 06/10/22 16:23 Troponin T Hi Sens 6Hr 10.60 ng/L (0-10) H 06/10/22 20:57 Troponin T Hi Sens 6Hr Delta 0.60 ng/L (0-12) 06/10/22 20:57 C-Reactive Protein 27.0 mg/L (0.0-4.9) H 06/16/22 03:45 NT-Pro-B Natriuret Pep 4083 pg/mL (0-125) H 06/10/22 14:55 Total Protein 7.0 g/dL (6.6-8.7) 06/10/22 14:55 Albumin 2.9 g/dL (3.5-5.2) L 06/16/22 03:45 Globulin 3.8 g/dL (1.3-4.6) 06/10/22 14:55 Procalcitonin 0.12 ng/mL (0-0.5) 06/10/22 14:55 Urine Color Yellow (Yellow) 06/10/22 19:15 Urine Appearance Clear (CLEAR) 06/10/22 19:15 Urine pH 5 (5-7) 06/10/22 19:15 Ur Specific [place] 1.010 (1.005-1.030) 06/10/22 19:15 Urine Protein Neg (Negative) 06/10/22 19:15 Urine Glucose (UA) Norm (Normal) 06/10/22 19:15 Urine Ketones Negative (Negative) 06/10/22 19:15 Urine Blood Neg (Negative) 06/10/22 19:15 Urine Nitrate Negative (Negative) 06/10/22 19:15 Urine Bilirubin Neg (Negative) 06/10/22 19:15 Urine Urobilinogen Norm mg/dL (Negative) 06/10/22 19:15 Ur Leukocyte Esterase Trace (Negative) H 06/10/22 19:15 Urine RBC None /hpf (0-2) 06/10/22 19:15 Urine WBC 0-4 /hpf (0-5) H 06/10/22 19:15 Ur Squamous Epith Cells 5-10 /hpf (0-5) H 06/10/22 19:15 Amorphous Sediment Not Reportable 06/10/22 19:15 Urine Bacteria None /hpf (NONE) 06/10/22 19:15 Urine Sperm 1+ /hpf 06/10/22 19:15 Vancomycin Trough 14.2 ug/mL (10-15) 06/13/22 00:53 Vitals Last Vital Signs Temp 97.6 F 06/16/22 04:00 Pulse 92 06/16/22 07:32 Resp 16 06/16/22 07:32 BP 117/81 06/16/22 07:32 Pulse Ox 95 06/16/22 07:32 O2 Del Method 06/16/22 07:27 O2 Flow Rate 2 06/16/22 07:27 Discharge Plan Discharge Patient Disposition: Home Condition: Stable Prescriptions: New cefdinir 300 mg capsule 300 mg PO BID 10 Days Qty: 20 0RF doxycycline hyclate 100 mg capsule 100 mg PO BID 10 Days Qty: 20 0RF Continued aripiprazole 5 mg tablet 5 mg PO BEDTIME@20 diltiazem HCl 180 mg capsule,extended release 24hr 180 mg PO DAILY@08 diclofenac sodium 1 % Gel See Rx Instructions .ROUTE .COMPLEX Rx Instructions: apply topically to affected area as directed twice a day as needed sotalol 80 mg tablet 80 mg PO BID@08,20 levothyroxine [Euthyrox] 150 mcg tablet 150 mcg PO DAILY@06 sertraline 50 mg tablet 50 mg PO DAILY@08 aspirin 81 mg tablet,delayed release (DR/EC) 81 mg PO DAILY@08 lorazepam 1 mg Tablet 1 mg PO TID@08,12,20 fluticasone propion-salmeterol [Wixela Inhub] 250-50 mcg/dose blister with device 1 inh INHALATION BID@08,20 ondansetron HCl 4 mg Tablet 4 mg PO Q4H PRN (Reason: Nausea And Vomiting) hydrocortisone 2.5 % Cream 1 applic TOPICAL BID PRN (Reason: UNKNOWN) trazodone 100 mg tablet 100 mg PO BEDTIME@20 Spiriva with HandiHaler 18 mcg capsule, w/inhalation device 1 cap inhalation DAILY@08 Rx Instructions: puncture 1 cap using device; one dose = 2 inhalations ferrous gluconate 324 mg (37.5 mg iron) tablet 324 mg PO BID@, [facility] 100,000 unit/gram Powder 1 applic TOPICAL BID@ Held potassium chloride 8 mEq tablet extended release 8 meq PO BID@ Hold Instructions: Resume on 07/16/22. Hold until follow up with primary care provider to decide when or if to restart. furosemide [Lasix] 40 mg Tablet See Rx Instructions .ROUTE .COMPLEX Hold Instructions: Resume on 07/16/22. Hold until follow up with primary care provider to decide when or if to restart. Rx Instructions: 80MG PO QAM @08 AND 40MG PO AT NOON spironolactone 50 mg tablet 50 mg PO DAILY@08 Hold Instructions: Resume on 07/16/22. Hold until follow up with primary care provider to decide when or if to restart. Discharge Orders: Discharge Order (Routine); Ordered 06/16/22 Ordered By: Joshua Pendleton Referrals: Zachary Trent MD [Primary Care Provider] - 4-7 days Discharge Diet: Advance as tolerated and Usual diet Discharge Activity: Resume usual activity and Increase activity as tolerated Patient Instructions: Opioid Safety Activity Restrictions/Additional Instructions: 1. Take medications as prescribed. 2. Follow up with primary care provider. Discharge Attestations Time Spent in Discharge Care*: greater than 30 min Status at Discharge: Cognitive status at discharge: cognitively intact , Behavioral status at discharge: cooperative , Quality Metrics Clinical Quality Measures [ No reported AMI, CVA or VTE this stay] Coding Level of Care Code Acute Chg FW DC note Diagnoses Cellulitis L03.90 Hypotension I95.9 Atrial fibrillation I48.91 Type 2 diabetes mellitus E11.9 Bilateral lower extremity edema R60.0 Essential hypertension I10 Hx of deep venous thrombosis Z86.718 Bipolar disorder in partial remission F31.70 Hypothyroidism E03.9
[2022-06-16 11:06] LABS: Glucose Point of Care 107 mg/dL (70-110)
== END 2022-06-16 12:10 | disposition home or self-care (01) | DRG 603 ==
LOC: ER 16:14 → MEDSURG 17:51
PROVIDERS: Admitting Provider Internal Medicine; Emergency Provider Family Medicine; PCP Pathology Anatomic Pathology & Clinical Pathology; Visit Provider Internal Medicine
DX: L03.116 Cellulitis of left lower limb (principal); I50.32 Chronic diastolic (congestive) heart failure; I48.91 Unspecified atrial fibrillation; F32.5 Major depressive disorder, single episode, in full remission; E78.5 Hyperlipidemia, unspecified; I11.0 Hypertensive heart disease with heart failure; Z86.718 Personal history of other venous thrombosis and embolism; I27.20 Pulmonary hypertension, unspecified; E11.9 Type 2 diabetes mellitus without complications; I25.10 Atherosclerotic heart disease of native coronary artery without angina pectoris; Z95.1 Presence of aortocoronary bypass graft; Z86.16 Personal history of COVID-19; I08.1 Rheumatic disorders of both mitral and tricuspid valves; I95.9 Hypotension, unspecified; E03.9 Hypothyroidism, unspecified; Z79.82 Long term (current) use of aspirin; Z79.891 Long term (current) use of opiate analgesic
CPT/HCPCS: 36415; 36416; 71045; 80048; 80053; 80069; 80202; 81001; 82962; 83605; 83735; 83880; 84100; 84145; 84484; 85025; 86140; 87040; 87086; 93005; 93971; 94640; 96365; 96367; 96372; 97116; 97161; 97165; 99285; J0696; J1650; J1815; J3370; J3490; J7030; J7040; J7050; J7626

== ENCOUNTER 2022-07-11 14:31 | Emergency (ER) | payer OTHER, SELFPAY ==
[2022-07-11 14:33] VITALS: BP 109/63; PULSE 80; RESP 18; O2SAT 93; BMI 31.7
--- NOTE | 2022-07-11 14:38 | XR_ITS ---
WS: [id number] Exam: XR chest 1V portable [id number] Date/Time of Exam: 07/11/2022 2:38 PM Reason For Exam: dyspnea/cough Comparison 06/10/2022. The lungs are fully expanded and clear. Heart size top limits normal. No pleural effusions. The media stinum is normal in contour. Signs of previous median sternotomy. Bony structures are intact. XR/XR chest 1V portable [id number] IMPRESSION: 1. No acute cardiopulmonary process.
--- NOTE | 2022-07-11 14:38 | ECG_ITS ---
[facility] Test Date: 2022-07-11 Pat Name: Ivette Wheeler Department: Room: Gender: Female Operations Liaison: : 1960 Requested By: Jean Claude Bonds Order Number: [id number] [place] MD: Medardo Huddleston M.D. Measurements Intervals [place] Rate: 77 P: 0 NM: 0 QRS: 63 QRSD: 93 T: 31 QT: 413 QTc: 470 Interpretive Statements ATRIAL FIBRILLATION LOW QRS VOLTAGE IN PRECORDIAL LEADS [QRS DEFLECTION < 1.0 mV IN CHEST LEADS] POSSIBLE RIGHT VENTRICULAR CONDUCTION DELAY [RSR (QR) IN V1/V2] ABNORMAL RHYTHM ECG Compared to ECG 06/10/2022 19:49:27 T-wave abnormality no longer present Electronically Signed On 07-12-2022 7:53:04 CUT ORDER HAND by Medardo Huddleston M.D. [email or web address]
[2022-07-11 15:07] LABS: Basophils # 0.1 10^3/uL (0.0-0.1); Basophils % 0.6 %; Eosinophils # 0.2 10^3/uL (0.0-0.8); Eosinophils % 2.9 %; Hematocrit 35.7 % (37.0-47.0); Hemoglobin 11.3 g/dL (11.5-15.3); Lymphocytes # 1.5 10^3/uL (0.8-4.8); Lymphocytes % 19.6 %; Mean Corpuscular HGB Conc 31.7 g/dL (30.0-36.0); Mean Corpuscular Hemoglobin 29.4 pg (28.0-34.0); Mean Corpuscular Volume 92.7 fl (81-99); Mean Platelet Volume 9.5 fL (7.4-10.4); Monocytes # 0.9 10^3/uL (0.2-0.9); Monocytes % 11.3 %; Neutrophils # 5.09 10^3/uL (1.8-7.7); Neutrophils % 65.3 %; Nucleated Red Blood Cells % 0 %; Platelet Count 294 10^3/cmm (130-400); Red Blood Count 3.85 10^6/uL (4.1-5.3); Red Cell Distribution Width 15.9 % (12.1-15.1); White Blood Count 7.8 10^3/uL (4.0-10.0)
--- NOTE | 2022-07-11 15:22 | W.ED.GENADLT ---
HPI - General Adult General: Chief complaint: General Medical Stated complaint: Fluid Restriction Time Seen by Provider: 07/11/22 14:37 Source: patient Mode of arrival: ambulatory History of Present Illness: C2-year-old female presents emergency complaining of bloating full sensation in her abdomen she feels like is hard to take a deep breath. She has a history of ascites has had 20 pound weight gain in the last several days. She was wanting to get a paracentesis done today she has not had any fever sweats or chills short of breath when she lays flat but otherwise does not well she has no she will walk short of breath with activity than she had been. Onset (ago): day(s) Location: abdomen Severity: mild Quality: aching Pain Consistency: constant Relieving factors: rest Exacerbating factors: movement Associated symptoms: Reports decreased appetite, malaise and nausea; Deny chest pain, confusion, cough, diaphoresis, dyspnea, fevers/chills, headache(s), rash, palpitations, seizures, short of breath, syncope, vomiting or weakness Review of Systems Const: Reports: malaise; Denies: fever(s), chills, fatigue or diaphoresis ENMT: Denies: throat pain, ear or mastoid pain, nasal discharge or nasal congestion Card: Denies: chest pain, palpitations or syncope Resp: Denies: dyspnea GI: Reports: nausea; Denies: abdominal pain or vomiting : Denies: flank pain, difficulty voiding, dysuria, urinary frequency or urinary urgency Skin/Breast: Denies: rash Neuro: Denies: headache(s) or confusion PFSH ED PFSH: Medical History Acute psychosis ASHD (arteriosclerotic heart disease) Atherosclerosis of coronary artery of [place] heart without angina pectoris Atrial fibrillation Bilateral lower extremity edema Bipolar disorder in partial remission The patient denies history of euphoria, decreased need for sleep, increase in energy, racing thoughts, pressured speech, spending sprees etc. Therefore this diagnosis is removed. Cellulitis CHF (congestive heart failure) Chronic anticoagulation Eliquis COVID-19 January Dyslipidemia Essential hypertension Hx of deep venous thrombosis Major depression in partial remission Mitral valve regurgitation Pulmonary hypertension Right-sided heart failure Subdural hematoma Tricuspid valve regurgitation Type 2 diabetes mellitus Surgical History History of coronary artery bypass graft 2005 History of coronary artery stent placement History of total vaginal hysterectomy History of tubal ligation S/P evacuation of subdural hematoma Status post colonoscopy Family History Other CAD (coronary artery disease) Diabetes Hypertension Social History Smoking and tobacco status: never smoked Alcohol intake: current Alcohol intake frequency: holidays/special occasions only Household members: significant other Marital status: Single Physical Exam Const: GENERAL APPEARANCE: cooperative and comfortable ORIENTATION/CONSCIOUSNESS: Yes awake, Yes oriented to person, Yes oriented to place and Yes oriented to time HENMT: COMMON NORMALS: normocephalic, atraumatic and hearing grossly normal bilaterally HEAD & SCALP: normocephalic and atraumatic Resp: COMMON NORMALS: normal respiratory effort, No retractions, No use of accessory muscles and clear to auscultation bilaterally AUSCULTATION: clear to auscultation bilaterally Cardio: COMMON NORMALS: regular rate, regular rhythm and No murmurs present (Cardio) RATE: regular rate RHYTHM: regular rhythm GI: COMMON NORMALS: Soft to palpation and No hepatosplenomegaly present INSPECTION: Yes abdominal distension and Yes Fluid wave present AUSCULTATION: Yes normoactive bowel sounds PALPATION: Yes Soft to palpation, No Tenderness to palpation present (GI), No Guarding due to palpation present (GI) and Yes No hepatosplenomegaly present PERCUSSION: dullness to percussion and Fluid wave present Extremity: COMMON NORMALS: normal to inspection, capillary refill normal, no clubbing, cyanosis or edema, no calf tenderness and no pedal edema Neuro: SENSORIUM/ORIENTATION: Yes oriented to person, Yes oriented to place and Yes oriented to time Skin: COMMON NORMALS: no rashes or lesions noted GENERAL SKIN EXAM: no rashes or lesions noted Course Vital Signs: Vital signs: Vital Signs Pulse Rate 80 07/11/22 14:33 Respiratory Rate 18 07/11/22 14:33 Blood Pressure 109/63 07/11/22 14:33 Pulse Oximetry 93 07/11/22 14:33 Oxygen Delivery Me thod 07/11/22 14:33 MDM - General Adult Medical Decision Making Patient has significant amount ascites but at this point is not emergent. We will schedule as an outpatient later date. Medical Records I reviewed the patient's medical records. Lab Data I reviewed the patient's lab results. 07/11/22 15:00 07/11/22 15:00 Radiology Impressions Chest X-Ray 07/11/22 14:38 IMPRESSION: 1. No acute cardiopulmonary process. Laboratory Results WBC 7.8 10^3/uL (4.0-10.0) 07/11/22 15:00 RBC 3.85 10^6/uL (4.1-5.3) L 07/11/22 15:00 Hgb 11.3 g/dL (11.5-15.3) L 07/11/22 15:00 Hct 35.7 % (37.0-47.0) L 07/11/22 15:00 MCV 92.7 fl (81-99) 07/11/22 15:00 MCH 29.4 pg (28.0-34.0) 07/11/22 15:00 MCHC 31.7 g/dL (30.0-36.0) 07/11/22 15:00 RDW 15.9 % (12.1-15.1) H 07/11/22 15:00 Plt Count 294 10^3/cmm (130-400) 07/11/22 15:00 MPV 9.5 fL (7.4-10.4) 07/11/22 15:00 Neut % (Auto) 65.3 % 07/11/22 15:00 Lymph % (Auto) 19.6 % 07/11/22 15:00 [place] % (Auto) 11.3 % 07/11/22 15:00 Eos % (Auto) 2.9 % 07/11/22 15:00 Baso % (Auto) 0.6 % 07/11/22 15:00 Neut # (Auto) 5.09 10^3/uL (1.8-7.7) 07/11/22 15:00 Lymph # (Auto) 1.5 10^3/uL (0.8-4.8) 07/11/22 15:00 [place] # (Auto) 0.9 10^3/uL (0.2-0.9) 07/11/22 15:00 Eos # (Auto) 0.2 10^3/uL (0.0-0.8) 07/11/22 15:00 Baso # (Auto) 0.1 10^3/uL (0.0-0.1) 07/11/22 15:00 Nucleated RBC % (auto) 0 % 07/11/22 15:00 Nucleated RBCs # 0.0 /100WBC 07/11/22 15:00 Sodium 137 mmol/L (136-145) 07/11/22 15:00 Potassium 3.9 mmol/L (3.5-5.1) 07/11/22 15:00 Chloride 99 mmol/L (98-107) 07/11/22 15:00 Carbon Dioxide 29 mmol/L (22-29) 07/11/22 15:00 Anion Gap 12.9 (5-19) 07/11/22 15:00 BUN 17 mg/dL (8-23) 07/11/22 15:00 Creatinine 0.8 mg/dL (0.5-0.9) 07/11/22 15:00 GFR Calculation 72.4 mL/min (90-130) L 07/11/22 15:00 Glucose 87 mg/dL (65-115) 07/11/22 15:00 Calculated Osmolality 285 mOsm/kg (285-295) 07/11/22 15:00 Calcium 9.0 mg/dL (8.5-10.5) 07/11/22 15:00 Discharge Plan Discharge Patient Disposition: Home Clinical Impression: Abdominal ascites, Atrial fibrillation, Type 2 diabetes mellitus, Essential hypertension, CHF (congestive heart failure) Condition: Stable Prescriptions: No Action aripiprazole 5 mg tablet 5 mg PO BEDTIME@20 diltiazem HCl 180 mg capsule,extended release 24hr 180 mg PO DAILY@08 diclofenac sodium 1 % Gel See Rx Instructions .ROUTE .COMPLEX Rx Instructions: apply topically to affected area as directed twice a day as needed sotalol 80 mg tablet 80 mg PO BID@08,20 levothyroxine [Euthyrox] 150 mcg tablet 150 mcg PO DAILY@06 sertraline 50 mg tablet 50 mg PO DAILY@08 aspirin 81 mg tablet,delayed release (DR/EC) 81 mg PO DAILY@08 lorazepam 1 mg Tablet 1 mg PO TID@08,12,20 potassium chloride 8 mEq tablet extended release 8 meq PO BID@08,20 Hold Instructions: Resume on 07/16/22. Hold until follow up with primary care provider to decide when or if to restart. furosemide [Lasix] 40 mg Tablet See Rx Instructions .ROUTE .COMPLEX Hold Instructions: Resume on 07/16/22. Hold until follow up with primary care provider to decide when or if to restart. Rx Instructions: 80MG PO QAM @08 AND 40MG PO AT NOON fluticasone propion-salmeterol [Wixela Inhub] 250-50 mcg/dose blister with device 1 inh INHALATION BID@,20 ondansetron HCl 4 mg Tablet 4 mg PO Q4H PRN (Reason: Nausea And Vomiting) hydrocortisone 2.5 % Cream 1 applic TOPICAL BID PRN (Reason: UNKNOWN) spironolactone 50 mg tablet 50 mg PO DAILY@08 Hold Instructions: Resume on 07/16/22. Hold until follow up with primary care provider to decide when or if to restart. trazodone 100 mg tablet 100 mg PO BEDTIME@20 Spiriva with HandiHaler 18 mcg capsule, w/inhalation device 1 cap inhalation DAILY@08 Rx Instructions: puncture 1 cap using device; one dose = 2 inhalations ferrous gluconate 324 mg (37.5 mg iron) tablet 324 mg PO BID@, [facility] 100,000 unit/gram Powder 1 applic TOPICAL BID@,20 Discharge Orders: Discharge ED (Routine); Ordered 07/11/22 Ordered By: Jean Claude De La Fuente Referrals: Zachary Trent MD [Primary Care Provider] - Patient Instructions: Opioid Safety, Pain Management Activity Restrictions/Additional Instructions: Case management make arrangements for her to outpatient paracentesis at a later date. Coding Level of Care Code ED Registered Nurse Renal for Jimmie Arias
[2022-07-11 15:23] LABS: Anion Gap 12.9 (5-19); Blood Urea Nitrogen 17 mg/dL (8-23); Carbon Dioxide 29 mmol/L (22-29); Chloride 99 mmol/L (98-107); Creatinine Clr Calc Pharmacy 75.4334; Glomerular Filtration Rate 72.4 mL/min (90-130); Glucose 87 mg/dL (65-115); Osmolality Calculated 285 mOsm/kg (285-295); Potassium 3.9 mmol/L (3.5-5.1); Sodium 137 mmol/L (136-145)
[2022-07-11 16:36] VITALS: BP 127/72; PULSE 83; RESP 16; O2SAT 92
== END 2022-07-11 17:11 | disposition home or self-care (01) ==
PROVIDERS: Emergency Provider Family Medicine; PCP Pathology Anatomic Pathology & Clinical Pathology
DX: R18.8 Other ascites (principal); I48.91 Unspecified atrial fibrillation; E11.9 Type 2 diabetes mellitus without complications; I11.0 Hypertensive heart disease with heart failure; I50.9 Heart failure, unspecified; Z79.82 Long term (current) use of aspirin; I25.10 Atherosclerotic heart disease of native coronary artery without angina pectoris; E78.5 Hyperlipidemia, unspecified; Z95.1 Presence of aortocoronary bypass graft
CPT/HCPCS: 71045; 80048; 85025; 93005; 99284

== ENCOUNTER 2022-07-23 07:30 | Day surgery (SDC) | payer OTHER, MEDICAID, SELFPAY ==
[2022-07-18 10:36] VITALS: BMI 31.0
--- NOTE | 2022-07-23 07:46 | US_ITS ---
WS: [email or web address] ULTRASOUND-GUIDED PARACENTESIS CLINICAL INFORMATION: other ascites COMPARISON: None. Procedure Informed consent: The risks, benefits, and alternatives of the procedure were discussed with the belinda ent. Verbal and written consent was obtained. Timeout: A timeout was performed to confirm the correct patient, procedure, and site. Preparation: A suitable skin site was identified. The patient was prepped and draped in usual sterile fashion. Lidocaine 1% was used for local anesthesia. Catheter: 4 Amharic One-step Yueh catheter. Side: LEFT Lower quadrant. Fluid Volume: 8000 ml Color: Clear yellow DISPOSITION: Discarded safely. Complications: None. Patient disposition: Discharged from the department in stable condition. US/US paracentesis abd w [id number] IMPRESSION: Uncomplicated ultrasound-guided paracentesis. Removal of 8000 cc
[2022-07-23 07:50] VITALS: BP 130/86; PULSE 90; RESP 18; TEMP 36.2; O2SAT 96
== END 2022-07-23 09:25 | disposition home or self-care (01) ==
LOC: GILAB 07:34
PROVIDERS: PCP Pathology Anatomic Pathology & Clinical Pathology; Visit Provider Family Medicine
PROC: (CPT 49082; principal; 2022-07-23 08:45)
DX: R18.8 Other ascites (principal)
CPT/HCPCS: 49083

== ENCOUNTER 2022-08-14 07:46 | Day surgery (SDC) | payer OTHER, MEDICAID, SELFPAY ==
[2022-08-13 12:14] VITALS: BMI 26.6
[2022-08-14 07:59] VITALS: BP 132/74; PULSE 95; RESP 18; TEMP 36.4; O2SAT 93
--- NOTE | 2022-08-14 08:07 | US_ITS ---
WS: [email or web address] ULTRASOUND-GUIDED THERAPEUTIC PARACENTESIS Procedure, risks, and complications have been explained to the patient. Consent is obtained. Utilizing aseptic technique and 1% buffered lidocaine, a small dermatome was made through which a 5 F rench Yueh catheter was inserted. Approximately 5800 ml of clear peritoneal fluid was obtained witho ut difficulty. No complications encountered. US/[place]acentesis abd w [id number] IMPRESSION: Uncomplicated paracentesis yielding 5800 ml of peritoneal fluid.
== END 2022-08-14 10:04 | disposition home or self-care (01) ==
PROVIDERS: Radiology Diagnostic Radiology; PCP Pathology Anatomic Pathology & Clinical Pathology; Visit Provider Pathology Anatomic Pathology & Clinical Pathology
PROC: (CPT 49082; principal; 2022-08-14 09:00)
DX: R18.8 Other ascites (principal)
CPT/HCPCS: 49083; 76705

== ENCOUNTER 2022-08-14 10:29 | Outpatient (CLI) | payer OTHER, MEDICAID, SELFPAY ==
--- NOTE | 2022-08-14 | US_ITS ---
WS: [email or web address] RIGHT UPPER QUADRANT ULTRASOUND HISTORY: ASCITES COMPARISON: None available. Liver: 17.5 cm in length. Mildly enlarged liver. No mass or bile duct dilatation. Portal Vein: Abnormal portal vein flow. Loss of the normal baseline but no reversal. Very undulating flow. Gallbladder: Numerous small stones within the gallbladder. No gallbladder wall thickening or perichol ecystic fluid. CBD: 0.4 cm Pancreas: Pancreas appears mildly edematous. No mass identified. Right kidney: 12.5 cm in length. Normal size and echogenicity. No hydronephrosis or mass. Aorta and IVC: Unremarkable abdominal aorta and IVC. Very tiny amount of ascites remains. US/US liver [id number] IMPRESSION: 1. Cholelithiasis without acute cholecystitis. 2. Very mild hepatomegaly.
== END 2022-08-14 10:30 | disposition home or self-care (01) ==
PROVIDERS: PCP Family Medicine; Visit Provider Family Medicine
DX: R18.8 Other ascites (principal); K80.20 Calculus of gallbladder without cholecystitis without obstruction
CPT/HCPCS: 76705

== ENCOUNTER 2022-09-11 14:52 | Outpatient (CLI) | payer OTHER, SELFPAY ==
--- NOTE | 2022-09-11 14:59 | MM_ITS ---
WS: [email or web address] BILATERAL 3D TOMOSYNTHESIS DIGITAL SCREENING MAMMOGRAPHY WITH CAD CLINICAL INFORMATION: SCREENING HISTORY: Screening mammogram. No current complaints. COMPARISON: 2009 TECHNIQUE: Bilateral CC and MLO views. FINDINGS: Scattered fibroglandular densities bilaterally. No suspicious focal mass, asymmetry, calcifications, or architectural distortion. No evidence of malignancy. A few incidental punctate and lucent centered calcifications. Dystrophic calcification RIGHT breast. Vascular calcification. 8 mm asymmetric densi ty central LEFT breast appears stable compared to 2009. MM/[place] [id number] IMPRESSION: BI-RADS: 2-Benign FOLLOW UP: 1 Year Follow-up Recommend return to annual screening mammography.
== END 2022-09-11 14:53 | disposition home or self-care (01) ==
LOC: RAD 14:52
PROVIDERS: PCP Family Medicine; Visit Provider Family Medicine
DX: Z12.31 Encounter for screening mammogram for malignant neoplasm of breast (principal)
CPT/HCPCS: 77063; 77067

== ENCOUNTER 2022-11-14 08:20 | Outpatient (CLI) | payer OTHER, MEDICAID, SELFPAY ==
--- NOTE | 2022-11-14 08:29 | US_ITS ---
WS: [email or web address] Complete ABDOMINAL ULTRASOUND HISTORY: ASCITES COMPARISON: 08/14/2022 Liver: 18.8 cm in length. Liver is very slightly enlarged. No mass identified. No bile duct dilatatio n. Portal Vein: Normal hepatopetal flow with monophasic waveform. Gallbladder: Contracted gallbladder with stones. Gallbladder wall measures up to 3 mm. No pericholecy stic fluid. CBD: 0.8 cm Pancreas: Head is obscured by bowel gas. Otherwise negative. Right kidney: 11.0 cm x 7.8 x 6.3 cm. Cortex:1.3 cm. Normal size and echogenicity. No hydronephrosis or mass. Left kidney: 10.6 cm x 6.7 cm x 5.2 cm. Cortex: 1.0 cm. No mass, cortical thickening or hydronephrosis. Spleen: Enlarged spleen measuring 14.6 cm in length. No mass. Aorta and IVC: Unremarkable abdominal aorta and IVC. Small amount of ascites US/US abdomen complete* [id number] Impression: 1. Contracted gallbladder with stones. Gallbladder contraction is new since . May be due to nonfasting state. 2. Hepatosplenomegaly. 3. Small amount of ascites.
== END 2022-11-14 08:21 | disposition home or self-care (01) ==
LOC: RAD 08:22
PROVIDERS: PCP Family Medicine; Visit Provider Nurse Practitioner Family
DX: R18.8 Other ascites (principal)
CPT/HCPCS: 76700

== ENCOUNTER 2022-12-05 12:18 | Outpatient (CLI) | payer OTHER, MEDICAID, SELFPAY ==
--- NOTE | 2022-12-05 12:45 | USCV_ITS ---
Ivette Wheeler Age: 62 Gender: F : 1960 Exam Date: 12/05/2022 13:06 Ordering Phys: Mariana Marina Technologist: Sixto Padilla Exam Location: [facility] [place] Indication: pedal edema murmur BP: 110 / 0 HR: 64 Rhythm: Sinus Technical Quality: Adequate MEASUREMENTS (Male / Female) Normal Values 2D ECHO LV Diastolic Diameter PLAX 4.8 cm 4.2 - 5.9 / 3.9 - 5.3 cm LV Systolic Diameter PLAX 3.1 cm IVS Diastolic Thickness 1.3 cm 0.6 - 1.0 / 0.6 - 0.9 cm IVS Systolic Thickness 2.0 cm LVPW Diastolic Thickness 1.2 cm 0.6 - 1.0 / 0.6 - 0.9 cm LVPW Systolic Thickness 1.7 cm LVOT Diameter 2.0 cm LV Ejection Fraction 2D Teich 65.6 % LV Ejection Fraction MOD 2C 60.8 % LV Ejection Fraction 2C AL 60.5 % LA Diameter 5.3 cm Aorta at Sinotubular Diameter 2.7 cm IVC Diameter 2.9 cm M-MODE Aortic Annulus Diameter 3.4 cm LA Ao Ratio MM 1.7 MV E Point Septal Separation 0.9 cm DOPPLER AV Peak Velocity 158.0 cm/s LVOT Peak Velocity 96.0 cm/s AV Area Cont Eq vti 2.0 cm squared AV Area Cont Eq pk 2.0 cm squared MV Area PHT 3.3 cm squared Mitral E to A Ratio 2.9 MV E' Velocity 56.5 cm/s Mitral E to MV E' Ratio 5.6 Mitral E to LV E' Lateral Ratio 5.3 Mitral E to LV E' Septal Ratio 5.9 TR Peak Velocity 306.0 cm/s TR Peak Gradient 37.5 mmHg TV Peak E Velocity 128.0 cm/s Right Atrial Pressure 8.0 mmHg Pulmonary Artery Systolic Pressu 45.5 mmHg RV Acceleration Time 0.1 s FINDINGS Left Ventricle Normal left ventricular cavity size. Mildly increased left ventricular wall thickness. Mild left ventricular hypertrophy. Mildly decreased left ventricular systolic function. Left ventricular ejection fraction is estimated at 50-55 %. Grade II diastolic dysfunction, moderately elevated filling pressures. Flattened septum in systole consistent with right ventricle pressure overload. Right Ventricle Moderately dilated right ventricular size and moderately decreased systolic function. Right ventricular systolic pressure 57 mmHg. Right Atrium Severely increased right atrial size. Left Atrium Severely increased left atrial size. Mitral Valve Mild mitral annular calcification. Mildly thickened mitral valve. No mitral valve stenosis. Mild mitral valve regurgitation. Aortic Valve Thickened trileaflet aortic valve. No aortic valve stenosis. Trace aortic valve regurgitation. Tricuspid Valve Structurally normal tricuspid valve. No tricuspid valve stenosis. Ynspbotk-yj-cvqyjq tricuspid valve regurgitation. Pulmonic Valve Structurally normal pulmonic valve. No pulmonary valve stenosis. Mild pulmonary valve regurgitation. Pericardium No pericardial effusion. Aorta Normal size aortic root and proximal ascending aorta. IVC Dilated IVC with decreased respiratory variation. CONCLUSIONS 1. Normal left ventricular cavity size. Mildly increased left ventricular wall thickness. Mildly decreased left ventricular systolic function. Left ventricular ejection fraction is estimated at 50-55 %. Grade II diastolic dysfunction, moderately elevated filling pressures. 2. Kjmzzzjs-tz-hdmpam tricuspid valve regurgitation. 3. Severely increased biatrial size. 4. Severe pulmonary hypertension with pulmonary artery pressure estimated at 57 mm Hg. 5. When compared to study dated 02/17/21, right ventricular function has decreased and there is severe pHTN now. Norah Talbot MD (Electronically Signed) Final Date: 14 Dec 2022 12:32 S
== END 2022-12-05 12:19 | disposition home or self-care (01) ==
PROVIDERS: PCP Family Medicine; Visit Provider Nurse Practitioner Family
DX: I11.0 Hypertensive heart disease with heart failure (principal); I50.20 Unspecified systolic (congestive) heart failure; I27.20 Pulmonary hypertension, unspecified; I08.1 Rheumatic disorders of both mitral and tricuspid valves; I50.810 Right heart failure, unspecified
CPT/HCPCS: 93306

== ENCOUNTER 2023-04-15 08:31 | Outpatient (CLI) | payer MEDICAID, SELFPAY ==
--- NOTE | 2023-04-15 08:38 | US_ITS ---
WS: [id number] Abdominal ultrasound, limited. History: Evaluate for ascites. Comparison: None. All 4 quadrants are imaged by ultrasound to evaluate for ascites. There is only a very small amount o f ascites adjacent to the liver. IMPRESSION: Very small amount of ascites RIGHT upper quadrant.
== END 2023-04-15 08:32 | disposition home or self-care (01) ==
PROVIDERS: PCP Family Medicine; Visit Provider Family Medicine
DX: R18.8 Other ascites (principal)
CPT/HCPCS: 76705

== ENCOUNTER → 2023-05-20 11:44 | Outpatient (BNVA) | payer MEDICAID, SELFPAY | PROVIDERS: PCP Family Medicine; Visit Provider Nurse Practitioner Women's Health | DX: N76.2 Acute vulvitis (principal) | CPT/HCPCS: 88305; 88342 ==

== ENCOUNTER → 2023-05-23 11:20 | Outpatient (BNVA) | payer MEDICAID, SELFPAY | PROVIDERS: PCP Family Medicine; Visit Provider Internal Medicine Cardiovascular Disease | DX: I48.91 Unspecified atrial fibrillation (principal); I50.9 Heart failure, unspecified; I50.810 Right heart failure, unspecified; I07.1 Rheumatic tricuspid insufficiency; I10 Essential (primary) hypertension; I25.10 Atherosclerotic heart disease of native coronary artery without angina pectoris; I11.0 Hypertensive heart disease with heart failure; E78.5 Hyperlipidemia, unspecified | CPT/HCPCS: 36415; 80048; 83735; 83880; 93005; 99214 ==

== ENCOUNTER 2023-10-23 09:10 | Outpatient (CLI) | payer MEDICAID, SELFPAY ==
--- NOTE | 2023-10-23 09:14 | US_ITS ---
WS: [id number] Complete ABDOMINAL ULTRASOUND HISTORY: HX OF ASCITES/?ASCITES COMPARISON: None available. Liver: 18.0 cm in length. Top normal size liver to slightly enlarged. Portal Vein: Normal hepatopetal flow with monophasic waveform. Gallbladder: Normally distended gallbladder with cholelithiasis. No evidence for acute cholecystitis. CBD: 0.3 cm Pancreas: Obscured by body habitus. Right kidney: 10.0 cm x 5.2 x 6.3 cm. Cortex:1.2 cm. Normal size and echogenicity. No hydronephrosis or mass. Left kidney: 10.7 cm x 3.5 cm x 5.1 cm. Cortex: 1.1 cm. Normal size and echogenicity. No hydronephrosis or mass. Spleen: 13.2 cm. Normal size and echogenicity. Aorta and IVC: Unremarkable abdominal aorta and IVC. Impression: 1. No ascites. 2. Cholelithiasis without acute cholecystitis. 3. Very mild enlargement of the spleen and liver. Measurements are slightly less compared to 11/15/19 23.
== END 2023-10-23 09:11 | disposition home or self-care (01) ==
LOC: RAD 09:10
PROVIDERS: PCP Family Medicine; Visit Provider Nurse Practitioner Family
DX: K80.20 Calculus of gallbladder without cholecystitis without obstruction (principal); R16.0 Hepatomegaly, not elsewhere classified; R16.1 Splenomegaly, not elsewhere classified
CPT/HCPCS: 76700

== ENCOUNTER 2023-11-17 13:29 | Outpatient (CLI) | payer MEDICAID, SELFPAY ==
--- NOTE | 2023-11-17 13:45 | USCV_ITS ---
Ivette Wheeler Age: 63 Gender: F : 1960 Exam Date: 11/17/2023 13:36 Ordering Phys: Norah Talbot MD ([email or web address]) Technologist: CT Exam Location: [facility] [place] Indication: Sob BP: 150 / 72 HR: 65 Rhythm: Sinus Technical Quality: Adequate MEASUREMENTS (Male / Female) Normal Values 2D ECHO LVOT Diameter 2.2 cm LV Ejection Fraction MOD 2C 72.0 % LV Ejection Fraction 2C AL 72.2 % LA Diameter 5.4 cm RA Systolic Volume 4C AL 111.0 ml RA Systolic Volume 4C MOD 104.6 ml LA Sys Volume AL 81.5 cm cubed LA Sys Volume Index AL 37.7 cm cubed/m squared Aorta at Sinotubular Diameter 2.5 cm M-MODE LA Ao Ratio MM 2.4 AV Cusp Separation MM 2.2 cm DOPPLER AV Peak Velocity 142.0 cm/s LVOT Peak Velocity 74.0 cm/s AV Area Cont Eq vti 2.3 cm squared AV Area Cont Eq pk 1.9 cm squared MV Peak Velocity 114.0 cm/s MV Area PHT 3.8 cm squared Mitral E to A Ratio 2.5 TV Peak Velocity 301.5 cm/s TR Peak Velocity 338.0 cm/s TR Peak Gradient 45.7 mmHg TV Peak E Velocity 105.0 cm/s Right Atrial Pressure 3.0 mmHg Pulmonary Artery Systolic Pressu 48.7 mmHg PV Peak Velocity 111.5 cm/s FINDINGS Left Ventricle Left ventricle is normal in size. LV systolic function is normal with EF of 55 to 60%. No regional wall motion abnormalities are seen. Right Ventricle Moderately hypokinetic. Right Atrium Dilated. Left Atrium Dilated. Mitral Valve Structurally normal mitral valve. Mild mitral regurgitation. Aortic Valve Aortic valve is thickened. No significant stenosis or regurgitation. Tricuspid Valve Moderate to severe tricuspid regurgitation. RVSP is 45 to 50 mmHg. This is consistent with moderate pulmonary hypertension. Pulmonic Valve Not well-visualized. Pericardium Normal Aorta Normal in size. IVC Appears to be normal. CONCLUSIONS LV systolic function is normal with EF 55 to 60%. RV is moderately hypokinetic. Biatrial enlargement. Mild mitral regurgitation Moderate to severe tricuspid regurgitation. Moderate pulmonary hypertension Compared to prior echocardiogram from 2022, no significant changes are seen Medardo Huddleston MD (Electronically Signed) Final Date: 22 Nov 2023 23:12 S
== END 2023-11-17 13:30 | disposition home or self-care (01) ==
LOC: RAD 13:29
PROVIDERS: PCP Family Medicine; Visit Provider Internal Medicine Cardiovascular Disease
DX: I50.810 Right heart failure, unspecified (principal); I07.1 Rheumatic tricuspid insufficiency; I34.0 Nonrheumatic mitral (valve) insufficiency; I27.20 Pulmonary hypertension, unspecified
CPT/HCPCS: 93306

== ENCOUNTER → 2023-12-04 10:34 | Outpatient (BNVA) | payer MEDICAID, SELFPAY | PROVIDERS: PCP Family Medicine; Visit Provider Nurse Practitioner Family | DX: I48.20 Chronic atrial fibrillation, unspecified (principal); I11.0 Hypertensive heart disease with heart failure; I50.22 Chronic systolic (congestive) heart failure; I25.10 Atherosclerotic heart disease of native coronary artery without angina pectoris | CPT/HCPCS: 99214 ==

== ENCOUNTER 2024-01-01 15:35 | Outpatient (CLI) | payer MEDICAID, SELFPAY ==
--- NOTE | 2024-01-01 15:50 | MM_ITS ---
WS: [id number] BILATERAL SCREENING DIGITAL TOMOSYNTHESIS MAMMOGRAM WITH CAD HISTORY: SCREEN COMPARISON: 09/11/2022, 10/05/2008 and 12/29/2006 Bilateral CC and MLO views with tomosynthesis and synthetic mammography submitted. Computer aided det ection analyzed. Breast composition: The breasts are almost entirely fatty. No suspicious masses, microcalcifications or architectural distortion. Scattered nodules and benign calcifications in each breast. MM/[place] [id number] IMPRESSION: BI-RADS: 2-Benign FOLLOW UP: 1 Year Follow-up
== END 2024-01-01 15:36 | disposition home or self-care (01) ==
LOC: RAD 15:35
PROVIDERS: PCP Family Medicine; Visit Provider Family Medicine
DX: Z12.31 Encounter for screening mammogram for malignant neoplasm of breast (principal); N63.20 Unspecified lump in the left breast, unspecified quadrant; N63.10 Unspecified lump in the right breast, unspecified quadrant; R92.1 Mammographic calcification found on diagnostic imaging of breast
CPT/HCPCS: 77063; 77067

== ENCOUNTER 2024-04-21 15:14 | Emergency (ER) | payer MEDICARE, MEDICAID, SELFPAY ==
[2024-04-21 15:21] VITALS: BP 121/88; PULSE 94; RESP 18; TEMP 36.8; O2SAT 95
--- NOTE | 2024-04-21 15:21 | USR_ITS ---
PROCEDURE INFORMATION: Exam: US Duplex Left Lower Extremity Veins, Limited Exam date and time: 04/21/2024 3:33 PM Age: 64 years old Clinical indication: Pain; Swelling (edema) of limb; Lower extremity, left; Leg, lower TECHNIQUE: Imaging protocol: Real-time duplex ultrasound of the left extremity with 2-D pandey scale, color Doppler flow and spectral waveform analysis including responses to compression and other maneuvers (when performed) with image documentation. Limited exam focused on the left lower extremity veins. COMPARISON: CT lower leg LT wo con* [id number] 06/08/2022 10:30 AM FINDINGS: Left deep veins: Unremarkable. The common femoral, femoral, proximal profunda femoral and popliteal veins are patent without thrombus. Normal Doppler waveforms. Normal compressibility and/or augmentation response. Superficial veins: Greater saphenous vein at the saphenofemoral junction is patent without thrombus. Soft tissues: Unremarkable. US/CV venous duplex [facility] [id number] IMPRESSION: No evidence of deep vein thrombosis.
[2024-04-21 16:24] LABS: Basophils % 0.4 %; Eosinophils # 0.2 10^3/uL (0.0-0.8); Eosinophils % 1.8 %; Hematocrit 46.3 % (36-47); Lymphocytes # 1.3 10^3/uL (0.8-4.8); Lymphocytes % 14.8 %; Mean Corpuscular Hemoglobin 29.8 pg (27-33); Mean Corpuscular Volume 90.3 fl (85-98); Mean Platelet Volume 10.1 fL (7.4-10.4); Monocytes # 0.7 10^3/uL (0.2-0.9); Monocytes % 8.6 %; Neutrophils # 6.23 10^3/uL (1.8-7.7); Neutrophils % 73.9 %; Nucleated Red Blood Cells % 0 %; Platelet Count 257 10^3/cmm (157-399); Red Blood Count 5.13 10^6/uL (3.85-5.65); Red Cell Distribution Width 12.9 % (12.1-15.1); White Blood Count 8.42 10^3/uL (3.29-11.43)
--- NOTE | 2024-04-21 16:50 | ED_ITS ---
HPI - Extremity Problem 2 General: Chief complaint: Extremity Problem,Nontraumatic Stated complaint: Left Leg red and swollen Time Seen by Provider: 04/21/24 16:35 Source: patient Mode of arrival: ambulatory Limitations: no limitations History of Present Illness: Patient is a 64-year-old female who presents to the emergency department with left lower extremity swelling and redness evolving over the past day or so. She states she noticed it in the shower yesterday, and has been expanding since. She was seen by her primary care provider yesterday, and was prescribed antibiotics however did not start them as [facility] did not ever get them to the patient. She is reporting pain, swelling, and the redness as mentioned. She states that she felt hot at home, however did not take her temperature. She is not reporting any nausea, vomiting, abdominal pain, or other systemic signs of illness. She states she has had symptoms prior comparable to the left lower extremity symptoms at this time. MD Complaint: extremity pain and extremity swelling Onset (ago): day(s) Pain Consistency: constant Location: left Radiation: proximal Associated symptoms: Reports fever(s) (Subjective, felt hot at home); Deny chest pain or rash Related Data Home Medications Medication Instructions Recorded Confirmed diltiazem HCl 180 mg 180 mg PO DAILY@07/20/21 12/04/23 capsule,extended release 24 hr levothyroxine 150 mcg tablet 150 mcg PO DAILY@07/20/21 12/04/23 (Euthyrox) sertraline 50 mg tablet 50 mg PO DAILY@07/20/21 12/04/23 sotalol 80 mg tablet 80 mg PO BID@,07/20/21 12/04/23 aripiprazole 5 mg tablet 5 mg PO BEDTIME@09/26/21 12/04/23 aspirin 81 mg tablet,delayed 81 mg PO DAILY@05/16/22 12/04/23 release potassium chloride 8 mEq 8 meq PO DAILY 05/16/22 12/04/23 tablet,extended release ferrous gluconate 324 mg (37.5 mg 324 mg PO BID@,06/06/22 12/04/23 iron) tablet fluticasone 250 mcg-salmeterol 50 1 inh inhalation BID@,06/06/22 12/04/23 mcg/dose blistr powdr for inhalation (Wixela Inhub) trazodone 100 mg tablet 100 mg PO BEDTIME@20 06/06/22 12/04/23 umeclidinium 62.5 mcg/actuation 1 inh inhalation DAILY 08/13/22 12/04/23 blister powder for inhalation (Incruse Ellipta) Previous Rx's Medication Instructions Recorded furosemide 40 mg tablet (Lasix) 60 mg (1.5 x 40 mg) PO DAILY #135 08/22/22 tabs spironolactone 50 mg tablet 75 mg (1.5 x 50 mg) PO DAILY@08 08/22/22 #135 tabs fluconazole 200 mg tablet 200 mg PO .every 3 days #3 tabs 10/28/23 clobetasol 0.05 % topical ointment 1 applic topical BID vulvitis #60 11/27/23 grams sulfamethoxazole 800 2 tab PO DAILY 10 days #20 tabs 04/21/24 mg-trimethoprim 160 mg tablet (Bactrim DS) Allergies Allergy/AdvReac Type Severity Reaction Status Date / Time atorvastatin [From Lipitor] Allergy Unknown Verified 04/21/24 15:26 lisinopril Allergy Unknown Verified 04/21/24 15:26 Review of Systems 2 General: Reports: 10 or more systems reviewed and unremarkable except in HPI and below Const: Reports: fever(s) (Subjective, felt hot at home); Denies: chills or fatigue Eyes: Denies: change in vision ENMT: Denies: throat pain, ear or mastoid pain or nasal discharge Card: Denies: chest pain, palpitations, swelling of feet/ankles or lightheadedness Resp: Denies: dyspnea, productive cough or wheezing GI: Denies: abdominal pain, nausea, vomiting, diarrhea or constipation : Denies: flank pain, difficulty voiding, dysuria or urinary frequency Musc: Reports: extremity pain and extremity swelling; Denies: neck pain, back pain or joint pain Skin/Breast: Reports: erythema (Left lower extremity); Denies: rash Neuro: Denies: headache(s), numbness in extremities or weakness in extremities PFSH ED 2 PFSH: Medical History Psychiatric care No pertinent past medical history PCP: Dr. Trent; Jessica Bill, [employer] Right-sided heart failure Major depression in partial remission Bipolar disorder in partial remission The patient denies history of euphoria, decreased need for sleep, increase in energy, racing thoughts, pressured speech, spending sprees etc. Therefore this diagnosis is removed. Subdural hematoma resolved Bilateral lower extremity edema Acute psychosis Atherosclerosis of coronary artery of [place] heart without angina pectoris Cellulitis Pulmonary hypertension moderate (45-50mmHg) Tricuspid valve regurgitation Mitral valve regurgitation COVID-19 January Chronic anticoagulation Eliquis Type 2 diabetes mellitus CHF (congestive heart failure) Essential hypertension Hx of deep venous thrombosis (~2005) Left leg-- after open heart surgery Dyslipidemia ASHD (arteriosclerotic heart disease) Atrial fibrillation Surgical History History of repair of rectocele (~11/17/12) Posterior vaginal repair performed at [facility] by Dr. Falcon for symptomatic rectocele S/P evacuation of subdural hematoma (~2020) Status post colonoscopy History of coronary artery stent placement History of coronary artery bypass graft 2004 History of total vaginal hysterectomy TVH, BSO performed by Ezekiel at [facility] due to bleeding. History of tubal ligation Family History Father Heart disease Mother Heart disease Brother Heart disease Sister Heart disease Unknown No problems noted. Family/Other Diabetes cousin Other CAD (coronary artery disease) Hypertension Denies family history of Colon cancer Ovarian cancer Prostate cancer Hyperlipidemia Breast cancer Uterine cancer Thyroid disease Stroke Social History Smoking and tobacco/nicotine status: never used tobacco/nicotine Physical Exam 2 Const: COMMON NORMALS: no acute distress, patient oriented x3, no limitations, healthy appearing, alert and well nourished HENMT: COMMON NORMALS: normocephalic and atraumatic HEAD & SCALP: n ormocephalic and atraumatic Neck/C-Spine: COMMON NORMALS: full ROM, supple and no meningeal signs Resp: COMMON NORMALS: normal respiratory effort, No use of accessory muscles and clear to auscultation bilaterally AUSCULTATION: clear to auscultation bilaterally Cardio: COMMON NORMALS: regular rate and regular rhythm RATE: regular rate RHYTHM: regular rhythm Extremity: COMMON NORMALS: full ROM, capillary refill normal and no joint enlargement NARRATIVE EXTREMITY EXAM: Tenderness with palpation of the left lower extremity, there is also diffuse swelling noted. Pulses are palpable distally and symmetric with right lower extremity. No significant calf tenderness. Neuro: COMMON NORMALS: patient oriented x3, moves all extremities, no focal motor deficits and no sensory deficits noted SENSORIUM/ORIENTATION: Yes alert MENINGEAL SIGNS: Yes no meningeal signs Skin: NARRATIVE SKIN EXAM: Diffuse erythema to anterior left lower leg Course 2 Vital Signs: Vital signs: Vital Signs Temperature 98.2 F 04/21/24 15:21 Pulse Rate 94 04/21/24 15:21 Respiratory Rate 18 04/21/24 15:21 Blood Pressure 121/88 04/21/24 15:21 Pulse Oximetry 95 04/21/24 15:21 Oxygen Delivery Me thod Room Air 04/21/24 15:21 MDM - Extremity (Nontraumatic) Medical Decision Making Patient presented with a day of left lower extremity swelling, redness, and pain. Was scribed antibiotics yesterday, has not started any yet. Ultrasound obtained did not demonstrate any evidence of a DVT, patient did report a history of this and is not on any blood thinner at this time. CBC was unremarkable with no inclination that she has any infectious spread beyond the clear cellulitis infection. Will give a shot of ceftriaxone here in the emergency department and send prescriptions to [facility] at this time so that patient can pick them up after discharge. Neurovascular status was intact on physical exam, however did have conversation with patient and daughter reasons to return for reevaluation, they understand. Case discussed with Dr. Taylor, patient discharged home at this time. Lab Data 04/21/24 16:17 Radiology Impressions Venous Duplex 04/21/24 15:21 IMPRESSION: No evidence of deep vein thrombosis. Laboratory Results WBC 8.42 10^3/uL (3.29-11.43) 04/21/24 16:17 RBC 5.13 10^6/uL (3.85-5.65) 04/21/24 16:17 Hgb 15.30 g/dL (11.27-16.99) 04/21/24 16:17 Hct 46.3 % (36-47) 04/21/24 16:17 MCV 90.3 fl (85-98) 04/21/24 16:17 MCH 29.8 pg (27-33) 04/21/24 16:17 MCHC 33.0 g/dL (30-55) 04/21/24 16:17 RDW 12.9 % (12.1-15.1) 04/21/24 16:17 Plt Count 257 10^3/cmm (157-399) 04/21/24 16:17 MPV 10.1 fL (7.4-10.4) 04/21/24 16:17 Neut % (Auto) 73.9 % 04/21/24 16:17 Lymph % (Auto) 14.8 % 04/21/24 16:17 Randolph % (Auto) 8.6 % 04/21/24 16:17 Eos % (Auto) 1.8 % 04/21/24 16:17 Baso % (Auto) 0.4 % 04/21/24 16:17 Neut # (Auto) 6.23 10^3/uL (1.8-7.7) 04/21/24 16:17 Lymph # (Auto) 1.3 10^3/uL (0.8-4.8) 04/21/24 16:17 Randolph # (Auto) 0.7 10^3/uL (0.2-0.9) 04/21/24 16:17 Eos # (Auto) 0.2 10^3/uL (0.0-0.8) 04/21/24 16:17 Baso # (Auto) 0.0 10^3/uL (0.0-0.1) 04/21/24 16:17 Nucleated RBC % (auto) 0 % 04/21/24 16:17 Nucleated RBCs # 0.0 /100WBC 04/21/24 16:17 All radiology interpretation(s) finalized by discharge Discharge Plan Discharge Patient Disposition: Home Clinical Impression: Cellulitis of left anterior lower leg Condition: Stable Prescriptions: New sulfamethoxazole-trimethoprim [Bactrim DS] 800-160 mg tablet 2 tab PO DAILY 10 Days Qty: 20 0RF No Action aripiprazole 5 mg tablet 5 mg PO BEDTIME@20 lidocaine-epinephrine (PF) 2 %-1:200,000 solution 3 ml SUBCUT ONCE Qty: 3 0RF povidone-iodine [Betadine Swabsticks] 10 % swab 1 applic topical ONCE Qty: 2 0RF silver nitrate applicators 75-25 % stick 1 applic topical ONCE Qty: 1 0RF fluconazole 200 mg tablet 200 mg PO .every 3 days Qty: 3 0RF Rx Instructions: take one tablet every 3 days for a total of 3 doses spironolactone 50 mg tablet 75 mg PO DAILY@08 Qty: 135 3RF Hold Instructions: Resume on 07/16/22. Hold until follow up with primary care provider to decide when or if to restart. furosemide [Lasix] 40 mg tablet 60 mg PO DAILY Qty: 135 3RF Hold Instructions: Resume on 07/16/22. Hold until follow up with primary care provider to decide when or if to restart. clobetasol 0.05 % ointment 1 applic topical BID Qty: 60 0RF Rx Instructions: apply thin film to the affected area bid diltiazem HCl 180 mg capsule,extended release 24hr 180 mg PO DAILY@08 sotalol 80 mg tablet 80 mg PO BID@08,20 levothyroxine [Euthyrox] 150 mcg tablet 150 mcg PO DAILY@06 sertraline 50 mg tablet 50 mg PO DAILY@08 aspirin 81 mg tablet,delayed release (DR/EC) 81 mg PO DAILY@08 potassium chloride 8 mEq tablet extended release 8 meq PO DAILY Hold Instructions: Resume on 07/16/22. Hold until follow up with primary care provider to decide when or if to restart. fluticasone propion-salmeterol [Wixela Inhub] 250-50 mcg/dose blister with device 1 inh INHALATION BID@08,20 trazodone 100 mg tablet 100 mg PO BEDTIME@20 ferrous gluconate 324 mg (37.5 mg iron) tablet 324 mg PO BID@08,17 Incruse Ellipta 62.5 mcg/actuation Blister With Device 1 inh INHALATION DAILY Discharge Orders: Discharge ED (Routine); Ordered 04/21/24 Ordered By: Brenton Benjamin Referrals: Yaw Trent Jr, MD [Primary Care Provider] - Discharge Diet: Usual diet Discharge Activity: Increase activity as tolerated Patient Instructions: Cellulitis (ED) Activity Restrictions/Additional Instructions: Please begin taking your antibiotics today as prescribed. If redness is expanding or you develop any nausea/vomiting or other systemic signs of illness, please return immediately for reevaluation. Otherwise you may follow-up with primary care routinely. Avoid any excess sun exposure while on antibiotics. Coding Level of Care Code ED Network Operations Technician for Jimmie Arias
[2024-04-21] MEDS: cefTRIAXone 1,000 MG in water for injection-sterile 2.1 ML 999 MG IM (17:14)
[2024-04-21 17:26] VITALS: BP 127/88; PULSE 89; RESP 16; O2SAT 96
[2024-04-21 17:30] VITALS: BP 127/88; PULSE 89; O2SAT 96
== END 2024-04-21 17:35 | disposition home or self-care (01) ==
PROVIDERS: Emergency Medicine; Emergency Provider Physician Assistant; PCP Family Medicine
DX: L03.116 Cellulitis of left lower limb (principal); Z79.82 Long term (current) use of aspirin; I25.10 Atherosclerotic heart disease of native coronary artery without angina pectoris; I11.0 Hypertensive heart disease with heart failure; I50.9 Heart failure, unspecified; E11.9 Type 2 diabetes mellitus without complications; E78.5 Hyperlipidemia, unspecified; Z95.1 Presence of aortocoronary bypass graft
CPT/HCPCS: 36415; 85025; 93971; 96372; 99284; J0696

== ENCOUNTER → 2024-05-03 09:22 | Outpatient (BNVA) | payer OTHER, SELFPAY | PROVIDERS: PCP Family Medicine; Visit Provider Psychiatry & Neurology Neurology | DX: F43.12 Post-traumatic stress disorder, chronic (principal) | CPT/HCPCS: 80061; 83036; 83721 ==

== ENCOUNTER → 2024-09-20 15:11 | Outpatient (BNVA) | payer MEDICARE, MEDICAID, SELFPAY ==
[2024-06-07 07:59] VITALS: BP 125/62; BMI 35.4
== END ==
PROVIDERS: PCP Family Medicine; Visit Provider Internal Medicine
DX: I11.0 Hypertensive heart disease with heart failure (principal); I50.22 Chronic systolic (congestive) heart failure; I48.20 Chronic atrial fibrillation, unspecified; E78.5 Hyperlipidemia, unspecified; I25.10 Atherosclerotic heart disease of native coronary artery without angina pectoris; I07.1 Rheumatic tricuspid insufficiency
CPT/HCPCS: 99214

== ENCOUNTER 2025-01-05 08:20 | Outpatient (CLI) | payer MEDICARE, MEDICAID, SELFPAY ==
[2024-06-07 07:59] VITALS: BP 125/62; BMI 35.4
--- NOTE | 2025-01-05 08:23 | MM_ITS ---
WS: [id number] BILATERAL SCREENING DIGITAL TOMOSYNTHESIS MAMMOGRAM WITH CAD HISTORY: SCREENING COMPARISON: 01/01/2024, 09/11/2022, 10/05/2008 and 12/29/2006 Bilateral CC and MLO views with tomosynthesis and synthetic mammography submitted. Computer aided detection analyzed. Breast composition: There are scattered areas of fibroglandular density. No suspicious masses, microcalcifications or architectural distortion. Bilateral upper outer quadrant lymph nodes. 7 x 8 x 8 mm mass is noted in the anterior LEFT breast which is stable since 2006. Benign calcifications. MM/MM scr BI tomosynthesis [id number] IMPRESSION: BI-RADS: 2 - Benign. FOLLOW UP: 1 Year Follow-up
== END 2025-01-05 08:21 | disposition home or self-care (01) ==
PROVIDERS: PCP Family Medicine; Visit Provider Internal Medicine
DX: Z12.31 Encounter for screening mammogram for malignant neoplasm of breast (principal)
CPT/HCPCS: 77063; 77067

== ENCOUNTER → 2025-05-18 11:45 | Outpatient (BNVA) | payer OTHER, SELFPAY ==
[2024-06-07 07:59] VITALS: BP 125/62; BMI 35.4
== END ==
PROVIDERS: PCP Internal Medicine; Visit Provider Psychiatry & Neurology Psychiatry
DX: F43.12 Post-traumatic stress disorder, chronic (principal); Z79.899 Other long term (current) drug therapy
CPT/HCPCS: 80061; 83036

== ENCOUNTER → 2025-06-02 12:53 | Outpatient (BNVA) | payer MEDICARE, MEDICAID, SELFPAY ==
[2025-06-02 13:56] VITALS: BP 133/79; BMI 31.4
== END ==
PROVIDERS: PCP Family Medicine; Visit Provider Thoracic Surgery (Cardiothoracic Vascular Surgery)
DX: E11.52 Type 2 diabetes mellitus with diabetic peripheral angiopathy with gangrene (principal); E11.622 Type 2 diabetes mellitus with other skin ulcer; L97.821 Non-pressure chronic ulcer of other part of left lower leg limited to breakdown of skin
CPT/HCPCS: 97597; 99213; A6021

== ENCOUNTER → 2025-06-06 08:47 | Outpatient (BNVA) | payer MEDICAID, SELFPAY ==
[2025-06-02 13:56] VITALS: BP 133/79; BMI 31.4
== END ==
PROVIDERS: PCP Family Medicine; Visit Provider Thoracic Surgery (Cardiothoracic Vascular Surgery)
DX: E11.52 Type 2 diabetes mellitus with diabetic peripheral angiopathy with gangrene (principal); E11.622 Type 2 diabetes mellitus with other skin ulcer; L97.821 Non-pressure chronic ulcer of other part of left lower leg limited to breakdown of skin
CPT/HCPCS: 97597; A6021

== ENCOUNTER → 2025-06-08 10:28 | Outpatient (BNVA) | payer MEDICAID, SELFPAY ==
[2025-06-02 13:56] VITALS: BP 133/79; BMI 31.4
== END ==
PROVIDERS: PCP Family Medicine; Visit Provider Thoracic Surgery (Cardiothoracic Vascular Surgery)
DX: E11.52 Type 2 diabetes mellitus with diabetic peripheral angiopathy with gangrene (principal); E11.622 Type 2 diabetes mellitus with other skin ulcer; L97.821 Non-pressure chronic ulcer of other part of left lower leg limited to breakdown of skin
CPT/HCPCS: 29581

== ENCOUNTER → 2025-06-13 14:12 | Outpatient (BNVA) | payer MEDICAID, SELFPAY ==
[2025-06-02 13:56] VITALS: BP 133/79; BMI 31.4
== END ==
PROVIDERS: PCP Family Medicine; Visit Provider Thoracic Surgery (Cardiothoracic Vascular Surgery)
DX: E11.52 Type 2 diabetes mellitus with diabetic peripheral angiopathy with gangrene (principal); E11.622 Type 2 diabetes mellitus with other skin ulcer; L97.821 Non-pressure chronic ulcer of other part of left lower leg limited to breakdown of skin
CPT/HCPCS: 97597; A6021

== ENCOUNTER → 2025-06-20 12:33 | Outpatient (BNVA) | payer MEDICARE, MEDICAID, SELFPAY ==
[2025-06-02 13:56] VITALS: BP 133/79; BMI 31.4
== END ==
PROVIDERS: PCP Family Medicine; Visit Provider Internal Medicine
DX: I11.0 Hypertensive heart disease with heart failure (principal); I50.22 Chronic systolic (congestive) heart failure; I48.20 Chronic atrial fibrillation, unspecified; E11.52 Type 2 diabetes mellitus with diabetic peripheral angiopathy with gangrene; E11.622 Type 2 diabetes mellitus with other skin ulcer; L97.821 Non-pressure chronic ulcer of other part of left lower leg limited to breakdown of skin
CPT/HCPCS: 97597; 99214

== ENCOUNTER → 2025-06-27 11:22 | Outpatient (BNVA) | payer MEDICAID, SELFPAY ==
[2025-06-02 13:56] VITALS: BP 133/79; BMI 31.4
== END ==
PROVIDERS: PCP Family Medicine; Visit Provider Thoracic Surgery (Cardiothoracic Vascular Surgery)
DX: E11.52 Type 2 diabetes mellitus with diabetic peripheral angiopathy with gangrene (principal); E11.622 Type 2 diabetes mellitus with other skin ulcer; L97.821 Non-pressure chronic ulcer of other part of left lower leg limited to breakdown of skin; Z09 Encounter for follow-up examination after completed treatment for conditions other than malignant neoplasm
CPT/HCPCS: 97597

== ENCOUNTER → 2025-07-04 08:15 | Outpatient (BNVA) | payer MEDICARE, MEDICAID, SELFPAY ==
[2025-06-02 13:56] VITALS: BP 133/79; BMI 31.4
== END ==
PROVIDERS: PCP Family Medicine; Visit Provider Thoracic Surgery (Cardiothoracic Vascular Surgery)
DX: E11.52 Type 2 diabetes mellitus with diabetic peripheral angiopathy with gangrene (principal); E11.622 Type 2 diabetes mellitus with other skin ulcer; L97.821 Non-pressure chronic ulcer of other part of left lower leg limited to breakdown of skin
CPT/HCPCS: 97597; A6212; J9999

== ENCOUNTER → 2025-07-11 08:23 | Outpatient (BNVA) | payer MEDICAID, MEDICARE, SELFPAY ==
[2025-07-11 08:58] VITALS: BP 133/79; BMI 31.4
== END ==
PROVIDERS: PCP Family Medicine; Visit Provider Thoracic Surgery (Cardiothoracic Vascular Surgery)
DX: E11.52 Type 2 diabetes mellitus with diabetic peripheral angiopathy with gangrene (principal); E11.622 Type 2 diabetes mellitus with other skin ulcer; L97.821 Non-pressure chronic ulcer of other part of left lower leg limited to breakdown of skin
CPT/HCPCS: 97597; A6212